=== PATIENT | female | born 1945 | race African-American/Black ===

== ENCOUNTER 2020-05-05 06:14 | Emergency (ER) | payer MEDICARE ==
[2020-05-05] MEDS ORDERED: LIDOCAINE 1% W/EPI 1:100,000 MDV 20 ML VIAL ONE (06:43)
[2020-05-05] MEDS ORDERED: LIDOCAINE 1% MPF 30 ML VIAL ONE (06:45)
--- NOTE | 2020-05-05 07:28 | RAD REPORT ---
EXAM DESCRIPTION: CT - Head Brain Wo Cont - 05/05/2020 6:51 am CLINICAL HISTORY: Syncope COMPARISON: None. TECHNIQUE: Computed axial tomography of the head was obtained. IV contrast was not requested. All CT scans are performed using dose optimization technique as appropriate and may include automated exposure control or mA/KV adjustment according to patient size. FINDINGS: Left supraorbital swelling. An intracranial bleed is not seen . Basal ganglia calcifications are present. The ventricles are normal in caliber. No extra-axial fluid collection is noted. Fluid within the sinuses/ mastoids is not seen. IMPRESSION: No acute intracranial abnormality is seen. If patient's symptoms persist MRI of the bra in would be recommended.
--- NOTE | 2020-05-05 07:49 | EDPHYS ---
Physician Documentation [facility] Name: Kyler Rushing Age: 75 yrs Sex: Female : 1945 Arrival Date: 05/05/2020 Time: 06:18 Bed 7 Private MD: ED Physician Celso Lagos HPI: 05/05 06:32 This 75 yrs old Black Female presents to ER via Unassigned with complaints of Fall jr8 Injury, Laceration To Scalp/Face. 06:32 Details of fall: The patient fell from an upright position, while standing. Onset: The jr8 symptoms/episode began/occurred acutely, today. Associated injuries: The patient sustained injury to the head, laceration, 3 cm(s), of the left zygomatic area. Severity of symptoms: At their worst the symptoms were moderate, in the emergency department the symptoms are unchanged. The patient has not experienced similar symptoms in the past. The patient has not recently seen a physician. Patient stated that she tripped and fell hitting side of head/face on ground. Denies LOC. Stated that it was accidental. Denies any other preceding symptoms . Historical: - Allergies: 06:40 No Known Allergies; mt2 - PMHx: 06:41 Diabetes - IDDM; High Cholesterol; Hypertension; mt2 - Immunization history:: Adult Immunizations up to date, Last tetanus immunization: up to date. - Social history:: Smoking status: Patient denies any tobacco usage or history of. ROS: 06:32 Eyes: Positive for swelling to left eye ENT: Negative for injury, pain, and discharge, jr8 Neck: Negative for injury, pain, and swelling, Cardiovascular: Negative for chest pain, palpitations, and edema, Respiratory: Negative for shortness of breath, cough, wheezing, and pleuritic chest pain, Abdomen/GI: Negative for abdominal pain, nausea, vomiting, diarrhea, and constipation, Back: Negative for injury and pain, MS/Extremity: Negative for injury and deformity, Neuro: Negative for headache, weakness, numbness, tingling, and seizure. 06:32 Skin: Positive for laceration(s), of the face. Exam: 06:32 Constitutional: This is a well developed, well nourished patient who is awake, alert, jr8 and in no acute distress. ENT: Nares patent. No nasal discharge, no septal abnormalities noted. Tympanic membranes are normal and external auditory canals are clear. Oropharynx with no redness, swelling, or masses, exudates, or evidence of obstruction, uvula midline. Mucous membranes moist. Neck: Trachea midline, no thyromegaly or masses palpated, and no cervical lymphadenopathy. Supple, full range of motion without nuchal rigidity, or vertebral point tenderness. No Meningismus. Chest/axilla: Normal chest wall appearance and motion. Nontender with no deformity. No lesions are appreciated. Cardiovascular: Regular rate and rhythm with a normal S1 and S2. No gallops, murmurs, or rubs. Normal PMI, no JVD. No pulse deficits. Respiratory: Lungs have equal breath sounds bilaterally, clear to auscultation and percussion. No rales, rhonchi or wheezes noted. No increased work of breathing, no retractions or nasal flaring. Abdomen/GI: Soft, non-tender, with normal bowel sounds. No distension or tympany. No guarding or rebound. No evidence of tenderness throughout. Back: No spinal tenderness. No costovertebral tenderness. Full range of motion. Skin: Warm, dry with normal turgor. Normal color with no rashes, no lesions, and no evidence of cellulitis. MS/ Extremity: Pulses equal, no cyanosis. Neurovascular intact. Full, normal range of motion. Neuro: Awake and alert, GCS 15, oriented to person, place, time, and situation. Cranial nerves II-XII grossly intact. Motor strength 5/5 in all extremities. Sensory grossly intact. Cerebellar exam normal. Normal gait. 06:32 Head/face: Noted is a laceration(s), that is deep, that is linear, 3 cm(s), of the left zygomatic area. 06:32 Eyes: Periorbital structures: swelling, that is mild, on the left supraorbital ridge, left upper eyelid and left lower eyelid, Pupils: equal, round, and reactive to light and accomodation, Extraocular movements: intact throughout, Conjunctiva: subconjunctival hemorrhage(s), seen in the left eye, at 4 o'clock, Corneas: are normal, Sclera: no appreciated abnormality, Anterior chamber: normal, Lids and lashes: appear normal, Examination of the other eye reveals no obvious gross abnormality. Vital Signs: 06:41 BP 147 / 72; Pulse 80; Temp 98.1(O); Pulse Ox 97% ; Pain 6/10; mt2 08:06 BP 140 / 69; Pulse 75; Resp 17; Temp 98; Pulse Ox 98% ; bp Nina Coma Score: 06:47 Eye Response: spontaneous(4). Verbal Response: oriented(5). Motor Response: obeys mt2 commands(6). Total: 15. Trauma Score (Adult): 06:47 Eye Response: spontaneous(1); Verbal Response: oriented(1); Motor Response: obeys mt2 commands(2); Systolic BP: > 89 mm Hg(4); Respiratory Rate: 10 to 29 per min(4); Conway Score: 15; Trauma Score: 12 Laceration: 07:44 Wound Repair of 3cm ( 1.2in ) subcutaneous laceration to left zygomatic area. Linear jr8 shaped.. Distal neuro/vascular/tendon intact. Anesthesia: Local anesthetic administered with 3 mls of 1% lidocaine w/ Epi. Wound prep: Moderate cleansing with hibiclenz, Wound explored moderately. Skin closed with 4 5-0 Prolene using interrupted sutures and sterile technique. Patient tolerated well. MDM: 06:21 Patient medically screened. jr8 07:44 Data reviewed: vital signs, nurses notes, radiologic studies, CT scan. Data jr8 interpreted: Pulse oximetry: on room air is 97 %. Interpretation: normal. Counseling: I had a detailed discussion with the patient and/or guardian regarding: the historical points, exam findings, and any diagnostic results supporting the discharge/admit diagnosis, radiology results, the need for outpatient follow up, a family practitioner, to return to the emergency department if symptoms worsen or persist or if there are any questions or concerns that arise at home. Response to treatment: the patient's symptoms have markedly improved after treatment. 05/05 06:31 Order name: CT Head Brain wo Cont; Complete Time: 07:29 mt2 05/05 06:32 Order name: Prolene, Sutures; Complete Time: 08:04 jr8 05/05 06:32 Order name: Dressing - Wound; Complete Time: 08:05 jr8 05/05 06:32 Order name: Gloves, Sterile; Complete Time: 08:05 jr8 05/05 06:32 Order name: Setup Suture Tray; Complete Time: 06:34 jr8 Administered Medications: 06:32 CANCELLED (Physician Discretion): Lidocaine-Epinephrine -1%: (1:100,000) 1 vials 20 ml jr8 Infiltration once; to bedside 06:40 Drug: Lidocaine-Epinephrine -1%: (1:100,000) 20 ml Volume: 20 ml; Route: Infiltration; mt2 Site: affected area; Disposition: 05/05/20 07:48 Discharged to Home. Impression: Laceration without foreign body to face, Contusion of left eyelid and periocular area. - Condition is Stable. - Discharge Instructions: Laceration Care, Adult, Facial Laceration. - Medication Reconciliation Form, Thank You Letter, Antibiotic Education, Prescription Opioid Use form. - Follow up: Private Physician; When: 1 week; Reason: Wound Recheck, Recheck today's complaints, Continuance of care, Staple/Suture removal, Re-evaluation by your physician. - Problem is new. - Symptoms have improved. Addendum: 05/08/2020 06:13 Co-signature as Attending Physician, Celso Lagos MD. m Signatures: Dispatcher [employer] EDMS Sanchez Schulz PA PA jr8 Eddy Bowles RN RN bp Celso Lagos MD MD 7 Sarah Delgado RN RN mt2 Corrections: (The following items were deleted from the chart) 05/05 06:32 06:32 Lidocaine-Epinephrine -1%: (1:100,000) 1 vials 20 ml Infiltration once; to jr8 bedside ordered. jr8 08:07 07:48 05/05/2020 07:48 Discharged to Home. Impression: Laceration without foreign body bp to face; Contusion of left eyelid and periocular area. Condition is Stable. Forms are Medication Reconciliation Form, Thank You Letter, Antibiotic Education, Prescription Opioid Use. Follow up: Private Physician; When: 1 week; Reason: Wound Recheck, Recheck today's complaints, Continuance of care, Staple/Suture removal, Re-evaluation by your physician. Problem is new. Symptoms have improved. jr8
--- NOTE | 2020-05-05 07:49 | ER ---
Nurse's Notes [facility] Name: Kyler Rushing Age: 75 yrs Sex: Female : 1945 Arrival Date: 05/05/2020 Time: 06:18 Bed 7 Private MD: Diagnosis: Laceration without foreign body to face;Contusion of left eyelid and periocular area Presentation: 05/05 06:34 Chief complaint: Patient states: PT FEL ON FLOOR FACE FORWARD. DENIES LOC. DENIES mt2 DIZZINESS OR N/V. DENIES BLURRED VISION. LACERATION ON LEFT ORBIT. LEFT EYE SWOLLEN. Care prior to arrival: None. Mechanism of Injury: Fall. Mechanism of Injury: Fall BED. Trauma event details: Injury occurred: May 05, 2020. 06:34 Acuity: TOVA 3 mt2 06:34 Method Of Arrival: Wheelchair mt2 06:48 Coronavirus screen: Client denies travel out of the [place] in the last 14 days. At this mt2 time, the client does not indicate any symptoms associated with coronavirus-19. Ebola Screen: No symptoms or risks identified at this time. Initial Sepsis Screen: Does the patient meet any 2 criteria? No. Patient's initial sepsis screen is negative. Does the patient have a suspected source of infection? No. Patient's initial sepsis screen is negative. Risk Assessment: Do you want to hurt yourself or someone else? Patient reports no desire to harm self or others. Onset of symptoms was May 05, 2020. Triage Assessment: 06:49 General: Appears uncomfortable, Behavior is cooperative. Pain: Complains of pain in mt2 left eye Pain currently is 55 out of 10 on a pain scale. Quality of pain is described as aching. Trauma Activation: Not Applicable Physician: ED Physician; Name: ; Notified At: ; Arrived At: Physician: General Surgeon; Name: ; Notified At: ; Arrived At: Physician: Radiology; Name: ; Notified At: ; Arrived At: Physician: Respiratory; Name: ; Notified At: ; Arrived At: Physician: Lab; Name: ; Notified At: ; Arrived At: Historical: - Allergies: 06:40 No Known Allergies; mt2 - PMHx: 06:41 Diabetes - IDDM; High Cholesterol; Hypertension; mt2 - Immunization history:: Adult Immunizations up to date, Last tetanus immunization: up to date. - Social history:: Smoking status: Patient denies any tobacco usage or history of. Screenin:42 Abuse screen: Denies threats or abuse. Nutritional screening: No deficits noted. mt2 Tuberculosis screening: No symptoms or risk factors identified. Fall Risk Fall in past 12 months (25 points). Gait- Weak (10 pts.). Primary Survey: 06:45 NO uncontrolled hemorrhage observed. A: The patient is alert. Airway: patent. mt2 Breathing/Chest: Respiratory pattern: regular, Respiratory effort: spontaneous, unlabored, Breath sounds: clear. Circulation: Cardiac rhythm: sinus rhythm. Disability Alert. Exposure/Environment: There is no evidence of uncontrolled external bleeding. 06:49 Reassessment Breathing/Chest Respiratory pattern Regular Respiratory effort Spontaneous.mt2 Assessment: 07:00 General: RECD REPORT FROM SARAH POWELL. 75YO BF S/P FALL WITH LACERATION TO LEFT BROW. bp 08:05 Reassessment: PT D/C HOME VIA W/C, DX WITH LACERATION AND CONTUSION. bp Vital Signs: 06:41 BP 147 / 72; Pulse 80; Temp 98.1(O); Pulse Ox 97% ; Pain 6/10; mt2 08:06 BP 140 / 69; Pulse 75; Resp 17; Temp 98; Pulse Ox 98% ; bp [place] Coma Score: 06:47 Eye Response: spontaneous(4). Verbal Response: oriented(5). Motor Response: obeys mt2 commands(6). Total: 15. Trauma Score (Adult): 06:47 Eye Response: spontaneous(1); Verbal Response: oriented(1); Motor Response: obeys mt2 commands(2); Systolic BP: > 89 mm Hg(4); Respiratory Rate: 10 to 29 per min(4); Nina Score: 15; Trauma Score: 12 ED Course: 06:18 Patient arrived in ED. es 06:21 Sanchez Schulz PA is PHCP. jr8 06:21 Celso Lagos MD is Attending Physician. jr8 06:23 Sarah Delgado RN is Primary Nurse. mt2 06:36 Triage completed. mt2 06:42 Arm band placed on right wrist. mt2 06:42 Assist provider with laceration repair Set up tray. mt2 06:48 Patient has correct armband on for positive identification. Call light in reach. Side mt2 rails up X 1. Pulse ox on. NIBP on. 06:48 Patient maintains SpO2 saturation greater than 95% on room air. mt2 06:49 Thermoregulation: warm blanket given to patient. mt2 06:50 CT Head Brain wo Cont In Process Unspecified. EDMS 08:06 Patient did not have IV access during this emergency room visit. bp Administered Medications: 06:32 CANCELLED (Physician Discretion): Lidocaine-Epinephrine -1%: (1:100,000) 1 vials 20 ml jrEdwin Infiltration once; to bedside 06:40 Drug: Lidocaine-Epinephrine -1%: (1:100,000) 20 ml Volume: 20 ml; Route: Infiltration; mt2 Site: affected area; Intake: 06:47 PO: 0ml; Total: 0ml. mt2 Outcome: 07:48 Discharge ordered by . jr8 08:06 Discharged to home via wheelchair. bp 08:06 Condition: stable 08:06 Discharge instructions given to patient, Instructed on discharge instructions, follow up and referral plans. wound care, Demonstrated understanding of instructions, follow-up care, wound care. 08:07 Patient's length of stay was not longer than 2 hours. bp 08:07 Patient left the ED. bp Signatures: Dispatcher [employer] Kandis Hdz Josh, PA PA jr8 Eddy Bowles, RN RN bp Sarah Delgado RN RN mt2
[2020-05-09 19:46] VITALS: BP 140/69; TEMP 98; O2SAT 98
== END 2020-05-05 08:07 | disposition home or self-care (01) ==
LOC: ER 06:14
PROC: 0JQ10ZZ Repair Face Subcutaneous Tissue and Fascia, Open Approach (ICD-10-PCS; principal; 2020-05-05)
DX: S01.81XA Laceration without foreign body of other part of head, initial encounter (principal); W01.10XA Fall on same level from slipping, tripping and stumbling with subsequent striking against unspecified object, initial encounter; Y93.9 Activity, unspecified; Y92.9 Unspecified place or not applicable; I10 Essential (primary) hypertension
CPT/HCPCS: 70450; 99284

== ENCOUNTER 2021-01-01 14:09 | Inpatient (IN) | payer MEDICARE ==
--- OUTSIDE RECORDS SUMMARY | 2021-01-01 14:14 | XMS REPORT | Continuity of Care Document ---
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 count) red blood count (test code = red 2.90 M/uL 3.80-5.20 L blood count) hemoglobin (test code = 8.9 g/dL 10.5-15.7 L hemoglobin) hematocrit (test code = 27.9 % 34.0-50.0 L hematocrit) MCV [Entitic volume] (test code = 96.2 fL 86-100 96932-4) mean corpuscular hemoglobin (test 30.7 pg 26.2-33.4 code = mean corpuscular hemoglobin) mean corpuscular HGB conc (test 31.9 g/dL 30-34 code = mean corpuscular HGB conc) red cell distribution width (test 18.7 % 12.0-15.5 H code = red cell distribution width) platelet count (test code = 191 K/uL 165-450 platelet count) mean platelet volume (test code = 9.4 fL 9.4-12.6 mean platelet volume) Segmented neutrophils/100 76.8 % 44.4-80.1 leukocytes in Blood (test code = 07043-7) Immature granulocytes [#/volume] 0.0 K/uL 0.0-0.03 in Blood (test code = 75145-8) lymphocyte% (test code = 15.9 % 10.0-50.0 lymphocyte%) mono % (test code = mono %) 6.0 % 3.6-12.0 eos % (test code = eos %) 0.8 % 0.0-5.4 Basophils/100 leukocytes in 0.1 % 0.1-1.2 Unspecified specimen (test code = 99553-7) Band form neutrophils [#/volume] 5.73 K/uL 1.56-6.13 in Blood (test code = 11695-2) Lymphocytes [#/volume] in 1.2 K/uL 1.18-3.74 Unspecified specimen by Automated count (test code = 52258-2) mono # (test code = mono #) 0.45 K/uL 0.24-0.86 eos # (test code = eos #) 0.06 K/uL 0.04-0.36 basophil # (test code = basophil 0.01 K/uL 0.01-0.08 #) NRBC% (test code = NRBC%) 1 /100 WBC 0-0.2 H NRBC# (test code = NRBC#) 0 K/uL [facility] metabolic 2000 panel - Serum or [id number] 03:00:00 Test Item Value Reference Range Interpretation Comments Glucose [Mass/volume] in Serum or 242 mg/dL 82-115 H Plasma (test code = 2345-7) Urea nitrogen [Mass/volume] in 7 mg/dL 8-23 L Serum or Plasma (test code = 3094-0) osmolality calculated,serum (test 285 mOsm/kg 280-300 code = osmolality calculated,serum) creatinine (test code = 0.9 mg/dL 0.50-0.90 creatinine) glomerular filtration rate (test >60.00 code = glomerular filtration rate) Urea nitrogen/Creatinine [Mass 7.8 12-20 L Ratio] in Serum or Plasma (test code = 3097-3) sodium level (test code = sodium 140 mmol/L 135-145 level) potassium level (test code = 3.8 mmol/L 3.5-5.2 potassium level) chloride level (test code = 109 mmol/L 98-108 H chloride level) CO2 (test code = CO2) 22 mmol/L 21-32 anion gap (test code = anion gap) 12.8 mEq/L 12-20 calcium level (test code = 7.8 mg/dL 8.8-10.2 L calcium level) [facility] W Auto Differential panel - [id number] 12:59:00 Test Item Value Reference Range Interpretation Comments white blood count (test code = 8.7 K/uL 4.0-11.5 white blood count) red blood count (test code = red 3.00 M/uL 3.80-5.20 L blood count) hemoglobin (test code = 9.1 g/dL 10.5-15.7 L hemoglobin) hematocrit (test code = 28.4 % 34.0-50.0 L hematocrit) MCV [Entitic volume] (test code = 94.7 fL 86-100 69229-4) mean corpuscular hemoglobin (test 30.3 pg 26.2-33.4 code = mean corpuscular hemoglobin) mean corpuscular HGB conc (test 32.0 g/dL 30-34 code = mean corpuscular HGB conc) red cell distribution width (test 19.0 % 12.0-15.5 H code = red cell distribution width) platelet count (test code = 201 K/uL 165-450 platelet count) mean platelet volume (test code = 9.8 fL 9.4-12.6 mean platelet volume) Segmented neutrophils/100 80.1 % 44.4-80.1 leukocytes in Blood (test code = 34133-8) Immature granulocytes [#/volume] 0.0 K/uL 0.0-0.03 H in Blood (test code = 88565-7) lymphocyte% (test code = 12.6 % 10.0-50.0 lymphocyte%) mono % (test code = mono %) 6.0 % 3.6-12.0 eos % (test code = eos %) 0.6 % 0.0-5.4 Basophils/100 leukocytes in 0.2 % 0.1-1.2 Unspecified specimen (test code = 14748-5) Band form neutrophils [#/volume] 6.95 K/uL 1.56-6.13 H in Blood (test code = 79223-5) Lymphocytes [#/volume] in 1.1 K/uL 1.18-3.74 L Unspecified specimen by Automated count (test code = 02833-9) mono # (test code = mono #) 0.52 K/uL 0.24-0.86 eos # (test code = eos #) 0.05 K/uL 0.04-0.36 basophil # (test code = basophil 0.02 K/uL 0.01-0.08 #) NRBC% (test code = NRBC%) 1 /100 WBC 0-0.2 H NRBC# (test code = NRBC#) 0 K/uL [facility] metabolic 2000 panel - Serum or [id number] 12:59:00 Test Item Value Reference Range Interpretation Comments glucose (test code = glucose) 129 mg/dL 82-115 H Urea nitrogen [Mass/volume] in 8 mg/dL 8-23 Serum or Plasma (test code = 3094-0) osmolality calculated,serum (test 276 mOsm/kg 280-300 L code = osmolality calculated,serum) creatinine (test code = 0.9 mg/dL 0.50-0.90 creatinine) glomerular filtration rate (test >60.00 code = glomerular filtration rate) Urea nitrogen/Creatinine [Mass 8.9 12-20 L Ratio] in Serum or Plasma (test code = 3097-3) sodium level (test code = sodium 138 mmol/L 135-145 level) Potassium [Moles/volume] in Body 3.4 mmol/L 3.5-5.2 L fluid (test code = 2821-7) chloride level (test code = 109 mmol/L 98-108 H chloride level) CO2 (test code = CO2) 22 mmol/L 21-32 anion gap (test code = anion gap) 10.4 mEq/L 12-20 L calcium level (test code = 7.8 mg/dL 8.8-10.2 L calcium level) [facility] W Auto Differential panel - [id number] 12:59:00 Test Item Value Reference Range Interpretation Comments white blood count (test code = 8.7 K/uL 4.0-11.5 white blood count) red blood count (test code = red 3.00 M/uL 3.80-5.20 L blood count) hemoglobin (test code = 9.1 g/dL 10.5-15.7 L hemoglobin) hematocrit (test code = 28.4 % 34.0-50.0 L hematocrit) MCV [Entitic volume] (test code = 94.7 fL 86-100 16962-3) mean corpuscular hemoglobin (test 30.3 pg 26.2-33.4 code = mean corpuscular hemoglobin) mean corpuscular HGB conc (test 32.0 g/dL 30-34 code = mean corpuscular HGB conc) red cell distribution width (test 19.0 % 12.0-15.5 H code = red cell distribution width) platelet count (test code = 201 K/uL 165-450 platelet count) mean platelet volume (test code = 9.8 fL 9.4-12.6 mean platelet volume) Segmented neutrophils/100 80.1 % 44.4-80.1 leukocytes in Blood (test code = 64498-1) Immature granulocytes [#/volume] 0.0 K/uL 0.0-0.03 H in Blood (test code = 55779-6) lymphocyte% (test code = 12.6 % 10.0-50.0 lymphocyte%) mono % (test code = mono %) 6.0 % 3.6-12.0 eos % (test code = eos %) 0.6 % 0.0-5.4 Basophils/100 leukocytes in 0.2 % 0.1-1.2 Unspecified specimen (test code = 66561-8) Band form neutrophils [#/volume] 6.95 K/uL 1.56-6.13 H in Blood (test code = 09893-9) Lymphocytes [#/volume] in 1.1 K/uL 1.18-3.74 L Unspecified specimen by Automated count (test code = 85693-9) mono # (test code = mono #) 0.52 K/uL 0.24-0.86 eos # (test code = eos #) 0.05 K/uL 0.04-0.36 basophil # (test code = basophil 0.02 K/uL 0.01-0.08 #) NRBC% (test code = NRBC%) 1 /100 WBC 0-0.2 H NRBC# (test code = NRBC#) 0 K/uL [facility] metabolic 2000 panel - Serum or [id number] 12:59:00 Test Item Value Reference Range Interpretation Comments glucose (test code = glucose) 129 mg/dL 82-115 H Urea nitrogen [Mass/volume] in 8 mg/dL 8-23 Serum or Plasma (test code = 3094-0) osmolality calculated,serum (test 276 mOsm/kg 280-300 L code = osmolality calculated,serum) creatinine (test code = 0.9 mg/dL 0.50-0.90 creatinine) glomerular filtration rate (test >60.00 code = glomerular filtration rate) Urea nitrogen/Creatinine [Mass 8.9 12-20 L Ratio] in Serum or Plasma (test code = 3097-3) sodium level (test code = sodium 138 mmol/L 135-145 level) Potassium [Moles/volume] in Body 3.4 mmol/L 3.5-5.2 L fluid (test code = 2821-7) chloride level (test code = 109 mmol/L 98-108 H chloride level) CO2 (test code = CO2) 22 mmol/L 21-32 anion gap (test code = anion gap) 10.4 mEq/L 12-20 L calcium level (test code = 7.8 mg/dL 8.8-10.2 L calcium level) [facility] W Auto Differential panel - [id number] 12:59:00 Test Item Value Reference Range Interpretation Comments white blood count (test code = 8.7 K/uL 4.0-11.5 white blood count) red blood count (test code = red 3.00 M/uL 3.80-5.20 L blood count) hemoglobin (test code = 9.1 g/dL 10.5-15.7 L hemoglobin) hematocrit (test code = 28.4 % 34.0-50.0 L hematocrit) MCV [Entitic volume] (test code = 94.7 fL 86-100 15520-3) mean corpuscular hemoglobin (test 30.3 pg 26.2-33.4 code = mean corpuscular hemoglobin) mean corpuscular HGB conc (test 32.0 g/dL 30-34 code = mean corpuscular HGB conc) red cell distribution width (test 19.0 % 12.0-15.5 H code = red cell distribution width) platelet count (test code = 201 K/uL 165-450 platelet count) mean platelet volume (test code = 9.8 fL 9.4-12.6 mean platelet volume) Segmented neutrophils/100 80.1 % 44.4-80.1 leukocytes in Blood (test code = 98403-8) Immature granulocytes [#/volume] 0.0 K/uL 0.0-0.03 H in Blood (test code = 36250-1) lymphocyte% (test code = 12.6 % 10.0-50.0 lymphocyte%) mono % (test code = mono %) 6.0 % 3.6-12.0 eos % (test code = eos %) 0.6 % 0.0-5.4 Basophils/100 leukocytes in 0.2 % 0.1-1.2 Unspecified specimen (test code = 09969-2) Band form neutrophils [#/volume] 6.95 K/uL 1.56-6.13 H in Blood (test code = 78735-9) Lymphocytes [#/volume] in 1.1 K/uL 1.18-3.74 L Unspecified specimen by Automated count (test code = 76046-1) mono # (test code = mono #) 0.52 K/uL 0.24-0.86 eos # (test code = eos #) 0.05 K/uL 0.04-0.36 basophil # (test code = basophil 0.02 K/uL 0.01-0.08 #) NRBC% (test code = NRBC%) 1 /100 WBC 0-0.2 H NRBC# (test code = NRBC#) 0 K/uL [facility] metabolic 2000 panel - Serum or [id number] 12:59:00 Test Item Value Reference Range Interpretation Comments glucose (test code = glucose) 129 mg/dL 82-115 H Urea nitrogen [Mass/volume] in 8 mg/dL 8-23 Serum or Plasma (test code = 3094-0) osmolality calculated,serum (test 276 mOsm/kg 280-300 L code = osmolality calculated,serum) creatinine (test code = 0.9 mg/dL 0.50-0.90 creatinine) glomerular filtration rate (test >60.00 code = glomerular filtration rate) Urea nitrogen/Creatinine [Mass 8.9 12-20 L Ratio] in Serum or Plasma (test code = 3097-3) sodium level (test code = sodium 138 mmol/L 135-145 level) Potassium [Moles/volume] in Body 3.4 mmol/L 3.5-5.2 L fluid (test code = 2821-7) chloride level (test code = 109 mmol/L 98-108 H chloride level) CO2 (test code = CO2) 22 mmol/L 21-32 anion gap (test code = anion gap) 10.4 mEq/L 12-20 L calcium level (test code = 7.8 mg/dL 8.8-10.2 L calcium level) [facility] [id number] 10:15:00 Test Item Value Reference Range Interpretation Comments hemoglobin (test code = hemoglobin) 9.4 g/dL 10.5-15.7 hematocrit (test code = hematocrit) 29.4 % 34.0-50.0 [facility] - [id number] 10:15:00 Test Item Value Reference Range Interpretation Comments hemoglobin (test code = hemoglobin) 9.4 g/dL 10.5-15.7 hematocrit (test code = hematocrit) 29.4 % 34.0-50.0 [facility] - [id number] 10:15:00 Test Item Value Reference Range Interpretation Comments hemoglobin (test code = hemoglobin) 9.4 g/dL 10.5-15.7 hematocrit (test code = hematocrit) 29.4 % 34.0-50.0 [facility] - [id number] 01:45:00 Test Item Value Reference Range Interpretation Comments white blood count (test code = 8.4 K/uL 4.0-11.5 white blood count) red blood count (test code = red 2.27 M/uL 3.80-5.20 L blood count) hemoglobin (test code = 7.0 g/dL 10.5-15.7 L hemoglobin) hematocrit (test code = 21.8 % 34.0-50.0 L hematocrit) MCV [Entitic volume] (test code = 96.0 fL 86-100 89799-1) mean corpuscular hemoglobin (test 30.8 pg 26.2-33.4 code = mean corpuscular hemoglobin) mean corpuscular HGB conc (test 32.1 g/dL 30-34 code = mean corpuscular HGB conc) red cell distribution width (test 18.6 % 12.0-15.5 H code = red cell distribution width) platelet count (test code = 156 K/uL 165-450 platelet count) mean platelet volume (test code = 10.2 fL 9.4-12.6 mean platelet volume) Segmented neutrophils/100 78.3 % 44.4-80.1 leukocytes in Blood (test code = 65876-2) Immature granulocytes [#/volume] 0.0 K/uL 0.0-0.03 H in Blood (test code = 80209-9) lymphocyte% (test code = 14.9 % 10.0-50.0 lymphocyte%) mono % (test code = mono %) 5.5 % 3.6-12.0 eos % (test code = eos %) 0.7 % 0.0-5.4 Basophils/100 leukocytes in 0.1 % 0.1-1.2 Unspecified specimen (test code = 25686-5) Band form neutrophils [#/volume] 6.55 K/uL 1.56-6.13 H in Blood (test code = 18027-3) Lymphocytes [#/volume] in 1.3 K/uL 1.18-3.74 Unspecified specimen by Automated count (test code = 45043-3) mono # (test code = mono #) 0.46 K/uL 0.24-0.86 eos # (test code = eos #) 0.06 K/uL 0.04-0.36 basophil # (test code = basophil 0.01 K/uL 0.01-0.08 #) NRBC% (test code = NRBC%) 3 /100 WBC 0-0.2 H NRBC# (test code = NRBC#) 0 K/uL [facility], method unspecified - [id number] 01:45:00NeutrophilsBandLymphocyteMonocyteEosinophilPlatelet [facility]Mem[facility] 2000 [facility] - Serum or [id number] 01:45:00 Test Item Value Reference Range Interpretation Comments Glucose [Mass/volume] in Serum or 164 mg/dL 82-115 H Plasma (test code = 2345-7) Urea nitrogen [Mass/volume] in 14 mg/dL 8-23 Serum or Plasma (test code = 3094-0) osmolality calculated,serum (test 285 mOsm/kg 280-300 code = osmolality calculated,serum) creatinine (test code = 0.9 mg/dL 0.50-0.90 creatinine) glomerular filtration rate (test >60.00 code = glomerular filtration rate) Urea nitrogen/Creatinine [Mass 15.6 12-20 Ratio] in Serum or Plasma (test code = 3097-3) sodium level (test code = sodium 141 mmol/L 135-145 level) potassium level (test code = 3.3 mmol/L 3.5-5.2 L potassium level) chloride level (test code = 107 mmol/L 98-108 chloride level) CO2 (test code = CO2) 25 mmol/L 21-32 anion gap (test code = anion gap) 12.3 mEq/L 12-20 calcium level (test code = 7.9 mg/dL 8.8-10.2 L calcium level) [facility] W Auto Differential panel - [id number] 01:45:00 Test Item Value Reference Range Interpretation Comments white blood count (test code = 8.4 K/uL 4.0-11.5 white blood count) red blood count (test code = red 2.27 M/uL 3.80-5.20 L blood count) hemoglobin (test code = 7.0 g/dL 10.5-15.7 L hemoglobin) hematocrit (test code = 21.8 % 34.0-50.0 L hematocrit) MCV [Entitic volume] (test code = 96.0 fL 86-100 87789-4) mean corpuscular hemoglobin (test 30.8 pg 26.2-33.4 code = mean corpuscular hemoglobin) mean corpuscular HGB conc (test 32.1 g/dL 30-34 code = mean corpuscular HGB conc) red cell distribution width (test 18.6 % 12.0-15.5 H code = red cell distribution width) platelet count (test code = 156 K/uL 165-450 platelet count) mean platelet volume (test code = 10.2 fL 9.4-12.6 mean platelet volume) Segmented neutrophils/100 78.3 % 44.4-80.1 leukocytes in Blood (test code = 29100-0) Immature granulocytes [#/volume] 0.0 K/uL 0.0-0.03 H in Blood (test code = 05748-5) lymphocyte% (test code = 14.9 % 10.0-50.0 lymphocyte%) mono % (test code = mono %) 5.5 % 3.6-12.0 eos % (test code = eos %) 0.7 % 0.0-5.4 Basophils/100 leukocytes in 0.1 % 0.1-1.2 Unspecified specimen (test code = 05806-0) Band form neutrophils [#/volume] 6.55 K/uL 1.56-6.13 H in Blood (test code = 71770-5) Lymphocytes [#/volume] in 1.3 K/uL 1.18-3.74 Unspecified specimen by Automated count (test code = 45150-1) mono # (test code = mono #) 0.46 K/uL 0.24-0.86 eos # (test code = eos #) 0.06 K/uL 0.04-0.36 basophil # (test code = basophil 0.01 K/uL 0.01-0.08 #) NRBC% (test code = NRBC%) 3 /100 WBC 0-0.2 H NRBC# (test code = NRBC#) 0 K/uL [facility]Different[facility], method unspecified - [id number] 01:45:00NeutrophilsBandLymphocyteMonocyteEosinophilPlatelet EstimateMataSinging [facility]portBasic [facility] 2000 panel - Serum or [id number] 01:45:00 Test Item Value Reference Range Interpretation Comments Glucose [Mass/volume] in Serum or 164 mg/dL 82-115 H Plasma (test code = 2345-7) Urea nitrogen [Mass/volume] in 14 mg/dL 8-23 Serum or Plasma (test code = 3094-0) osmolality calculated,serum (test 285 mOsm/kg 280-300 code = osmolality calculated,serum) creatinine (test code = 0.9 mg/dL 0.50-0.90 creatinine) glomerular filtration rate (test >60.00 code = glomerular filtration rate) Urea nitrogen/Creatinine [Mass 15.6 12-20 Ratio] in Serum or Plasma (test code = 3097-3) sodium level (test code = sodium 141 mmol/L 135-145 level) potassium level (test code = 3.3 mmol/L 3.5-5.2 L potassium level) chloride level (test code = 107 mmol/L 98-108 chloride level) CO2 (test code = CO2) 25 mmol/L 21-32 anion gap (test code = anion gap) 12.3 mEq/L 12-20 calcium level (test code = 7.9 mg/dL 8.8-10.2 L calcium level) [facility] W Auto Differential panel - [id number] 01:45:00 Test Item Value Reference Range Interpretation Comments white blood count (test code = 8.4 K/uL 4.0-11.5 white blood count) red blood count (test code = red 2.27 M/uL 3.80-5.20 L blood count) hemoglobin (test code = 7.0 g/dL 10.5-15.7 L hemoglobin) hematocrit (test code = 21.8 % 34.0-50.0 L hematocrit) MCV [Entitic volume] (test code = 96.0 fL 86-100 02434-5) mean corpuscular hemoglobin (test 30.8 pg 26.2-33.4 code = mean corpuscular hemoglobin) mean corpuscular HGB conc (test 32.1 g/dL 30-34 code = mean corpuscular HGB conc) red cell distribution width (test 18.6 % 12.0-15.5 H code = red cell distribution width) platelet count (test code = 156 K/uL 165-450 platelet count) mean platelet volume (test code = 10.2 fL 9.4-12.6 mean platelet volume) Segmented neutrophils/100 78.3 % 44.4-80.1 leukocytes in Blood (test code = 27920-7) Immature granulocytes [#/volume] 0.0 K/uL 0.0-0.03 H in Blood (test code = 90361-2) lymphocyte% (test code = 14.9 % 10.0-50.0 lymphocyte%) mono % (test code = mono %) 5.5 % 3.6-12.0 eos % (test code = eos %) 0.7 % 0.0-5.4 Basophils/100 leukocytes in 0.1 % 0.1-1.2 Unspecified specimen (test code = 74882-4) Band form neutrophils [#/volume] 6.55 K/uL 1.56-6.13 H in Blood (test code = 31354-0) Lymphocytes [#/volume] in 1.3 K/uL 1.18-3.74 Unspecified specimen by Automated count (test code = 67520-9) mono # (test code = mono #) 0.46 K/uL 0.24-0.86 eos # (test code = eos #) 0.06 K/uL 0.04-0.36 basophil # (test code = basophil 0.01 K/uL 0.01-0.08 #) NRBC% (test code = NRBC%) 3 /100 WBC 0-0.2 H NRBC# (test code = NRBC#) 0 K/uL [facility], method unspecified - [id number] 01:45:00NeutrophilsBandLymphocyteMonocyteEosinophilPlatelet EstimateMataSing[facility]portBasic metabolic 2000 panel - Serum or [id number] 01:45:00 Test Item Value Reference Range Interpretation Comments Glucose [Mass/volume] in Serum or 164 mg/dL 82-115 H Plasma (test code = 2345-7) Urea nitrogen [Mass/volume] in 14 mg/dL 8-23 Serum or Plasma (test code = 3094-0) osmolality calculated,serum (test 285 mOsm/kg 280-300 code = osmolality calculated,serum) creatinine (test code = 0.9 mg/dL 0.50-0.90 creatinine) glomerular filtration rate (test >60.00 code = glomerular filtration rate) Urea nitrogen/Creatinine [Mass 15.6 12-20 Ratio] in Serum or Plasma (test code = 3097-3) sodium level (test code = sodium 141 mmol/L 135-145 level) potassium level (test code = 3.3 mmol/L 3.5-5.2 L potassium level) chloride level (test code = 107 mmol/L 98-108 chloride level) CO2 (test code = CO2) 25 mmol/L 21-32 anion gap (test code = anion gap) 12.3 mEq/L 12-20 calcium level (test code = 7.9 mg/dL 8.8-10.2 L calcium level) [facility] - [id number] 13:40:00 Test Item Value Reference Range Interpretation Comments Blood type and Crossmatch unit number: panel - Blood (test code [id number] = 47844-3) [place] [address]2020-05-08 13:40[facility]:40:[place] [address] 13:40:00Results [place] [address]2020-05-08 13:[facility] 13:40:[place] [address]2020-05-08 13:40:00Results [place] [address]2020-05-08 13:40:[facility] 13:40:00Results[place] [address]2020-05-08 13:40:00Results [place] [address]2020-05-08 13:40:[facility]:40[facility] [place] [address]Ksvmgpxd4197-94-01 13:40:00Results [place] [address]2020-05-08 13:40:[facility] 13:40:[place] [address]-[place]-08 13:40:00Results [facility] [id number] [facility]:40[facility] 13:40:[facility] [id number] 13:40:00Results [facility] [id number] 13:40:[facility]15 13:40:[facility] [id number] 13:40:00Results [facility] [id number] 13:40:[facility] 2020-01-15 13:40:[facility] Chtdwpan1571-15-34 13:40:00Results [facility] Yykgikdg9347-61-02 13:40:[facility] 2020-01-15 13:40:[facility] [id number] 13:40:00Results [facility] GroupBlood [facility] and Crossmatch panel - [id number] 13:40:00 Test Item Value Reference Range Interpretation Comments Blood type and Crossmatch unit number: panel - Blood (test code [id number] = 17558-0) [facility] [id number] 13:40:[facility]-15 13:40:[facility] Nppdsoul3366-09-22 13:40:00Results [facility] [id number] 13:40:[facility] 2020-01-15 13:40:00[facility] [id number] 13:40:00Results [facility] Afzsnlkl7869-17-00 13:40:00[facility] 13:40:00[facility] Jfqpivey4730-43-24 13:40:00Results [facility] Peaxvatg8803-49-64 13:40:00[facility] 2020-01-15 13:40:00[facility] Fshxbsjf7674-14-68 13:40:00Results [facility] Khfrvbvc9687-55-77 13:40:00[facility] 2020-01-15 13:40:00[facility] Czwbqdda0744-29-45 13:40:00Results [facility] Dstmgngh6768-09-16 13:40:00[facility] 2020-01-15 13:40:00[facility] Wpqrrdjx4217-16-76 13:40:00Results [facility] Hyjzymto4705-91-02 13:40:00[facility] 2020-01-15 13:40:00[facility] Ntuohlnp1509-75-77 13:40:00Results [facility] Lzfppyqi5287-17-52 13:40:00[facility] 2020-01-15 13:40:00[facility] Iuejquaw3462-69-28 13:40:00Results [facility] Nomyedvn1039-48-85 13:40:00[facility] 2020-01-15 13:40:00[facility] Dbxgqyuj6214-44-84 13:40:00Results [facility] GroupBlood type and Crossmatch panel - [id number] 13:40:00 Test Item Value Reference Range Interpretation Comments Blood type and Crossmatch unit number: panel - Blood (test code [id number] = 98937-6) [facility] Ivgfesks0551-19-44 13:40:00[facility] 2020-01-15 13:40:00[facility] Wcehgwhg3661-55-54 13:40:00Results [facility] Xabwinim0811-69-54 13:40:00[facility] 2020-01-15 13:40:00[facility] Zsdjaebt8749-05-83 13:40:00Results [facility] Ohseoqle0686-22-14 13:40:00[facility] 2020-01-15 13:40:00[facility] Ajacjhfi6436-28-93 13:40:00Results [facility] Knooctoy2352-98-36 13:40:00[facility] 2020-01-15 13:40:00[facility] Zfpfkecr4640-18-47 13:40:00Results [facility] Npguejas4602-29-08 13:40:00[facility] 2020-01-15 13:40:00[facility] Yogiazun8154-06-97 13:40:00Results [facility] Fsagmjnp2709-38-97 13:40:00[facility] 2020-01-15 13:40:00[facility] Cynfxfqq3530-16-97 13:40:00Results [facility] Yxdtjlyd5884-86-15 13:40:00[facility] 2020-01-15 13:40:00[facility] Eihssmhq0891-48-11 13:40:00Results [facility] Rrgsvbmi5596-50-78 13:40:00[facility] 2020-01-15 13:40:00[facility] Dbtjgdja9402-84-17 13:40:00Results [facility] Xrrsofqp2432-51-82 13:40:00[facility] 2020-01-15 13:40:00[facility] 13:40[facility]00[facility] - Gnyga9636-95-65 09:48:00 Test Item Value Reference Range Interpretation Comments hemoglobin (test code = hemoglobin) 7.6 g/dL 10.5-15.7 hematocrit (test code = hematocrit) 23.5 % 34.0-50.0 [facility] - Bbnvb3965-26-55 09:48:00 Test Item Value Reference Range Interpretation Comments hemoglobin (test code = hemoglobin) 7.6 g/dL 10.5-15.7 hematocrit (test code = hematocrit) 23.5 % 34.0-50.0 [facility] - [id number] 09:48:00 Test Item Value Reference Range Interpretation Comments hemoglobin (test code = hemoglobin) 7.6 g/dL 10.5-15.7 hematocrit (test code = hematocrit) 23.5 % 34.0-50.0 [facility] HospitalPT/[id number] 08:07:00 Test Item Value Reference Range Interpretation Comments prothrombin time (test code = 10.4 seconds 10.3-12.3 prothrombin time) INR in Blood by Coagulation 0.96 assay (test code = 02368-2) [facility] [id number] 08:07:00 Test Item Value Reference Range Interpretation Comments INR in Blood by Coagulation 22.0 seconds 22.5-37.0 L assay (test code = 89273-7) [facility] and Indirect antibody screen panel - Blood 2020-01-15 08:07:00 Test Item Value Reference Range Interpretation Comments Rh [Type] in Blood (test code = neg 67505-7) ABO and Rh group panel - Blood O negative (test code = 35171-8) [facility]PT/[id number] 08:07:00 Test Item Value Reference Range Interpretation Comments prothrombin time (test code = 10.4 seconds 10.3-12.3 prothrombin time) INR in Blood by Coagulation 0.96 assay (test code = 95436-2) [facility] gjvt0741-78-10 08:07:00 Test Item Value Reference Range Interpretation Comments INR in Blood by Coagulation 22.0 seconds 22.5-37.0 L assay (test code = 33120-5) [facility] type and Indirect antibody screen panel - Blood 2020-01-15 08:07:00 Test Item Value Reference Range Interpretation Comments Rh [Type] in Blood (test code = neg 00406-1) ABO and Rh group panel - Blood O negative (test code = 63879-7) [facility] HospitalPT/[id number] 08:07:00 Test Item Value Reference Range Interpretation Comments prothrombin time (test code = 10.4 seconds 10.3-12.3 prothrombin time) INR in Blood by Coagulation 0.96 assay (test code = 22323-9) [facility] [id number] 08:07:00 Test Item Value Reference Range Interpretation Comments INR in Blood by Coagulation 22.0 seconds 22.5-37.0 L assay (test code = 05783-2) [facility] type and Indirect antibody screen panel - Blood 2020-01-15 08:07:00 Test Item Value Reference Range Interpretation Comments Rh [Type] in Blood (test code = neg 56789-7) ABO and Rh group panel - Blood O negative (test code = 44953-0) [facility] HospitalCom[facility] 2000 panel - Serum or Plasma 2020-01-15 07:32:00 Test Item Value Reference Range Interpretation Comments Glucose [Mass/volume] in Serum or 269 mg/dL 82-115 H Plasma (test code = 2345-7) Urea nitrogen [Mass/volume] in 16 mg/dL 8-23 Serum or Plasma (test code = 3094-0) osmolality calculated,serum (test 287 mOsm/kg 280-300 code = osmolality calculated,serum) creatinine (test code = 1.0 mg/dL 0.50-0.90 H creatinine) glomerular filtration rate (test >60.00 code = glomerular filtration rate) Urea nitrogen/Creatinine [Mass 16.0 12-20 Ratio] in Serum or Plasma (test code = 3097-3) sodium level (test code = sodium 138 mmol/L 135-145 level) potassium level (test code = 3.7 mmol/L 3.5-5.2 potassium level) chloride level (test code = 103 mmol/L 98-108 chloride level) CO2 (test code = CO2) 21 mmol/L 21-32 anion gap (test code = anion gap) 17.7 mEq/L 12-20 calcium level (test code = 8.5 mg/dL 8.8-10.2 L calcium level) total protein (test code = total 6.2 g/dL 6.6-8.7 L protein) albumin (test code = albumin) 3.7 g/dL 3.5-5.2 globulin (test code = globulin) 2.5 gm/dL A/G ratio (test code = A/G ratio) 1.5 >1.0 bilirubin,total (test code = <0.3 0.0-1.2 bilirubin,total) AST/SGOT (test code = AST/SGOT) 23 U/L 15-32 Alanine aminotransferase 21 U/L 0-33 [Enzymatic activity/volume] in Serum or Plasma (test code = 1742-6) Alkaline phosphatase [Enzymatic 60 U/L 35-105 activity/volume] in Serum or Plasma (test code = 6768-6) [facility] HospitalCreat[facility] kinase [Enzymatic activity/volume] in Serum or [id number] 07:32:00 Test Item Value Reference Range Interpretation Comments creatine kinase (test code = creatine 901 U/L 20-180 H kinase) [facility] HospitalNatriuretic peptide.B prohormone N-Terminal [Mass/volume] in Serum or [id number] 07:32:00 Test Item Value Reference Range Interpretation Comments N-term pro natriuretic peptide (test 91 pg/mL 0-125 code = N-term pro natriuretic peptide) [facility] HospitalTroponin I.cardiac [Mass/volume] in [id number] 07:32:00 Test Item Value Reference Range Interpretation Comments cardiac troponin I (test code = cardiac <0.30 0.0-0.5 troponin I) [facility] HospitalCreat[facility] kinase.MB [Mass/volume] in Serum or Plasma 2020-01-15 07:32:00 Test Item Value Reference Range Interpretation Comments Creatine kinase.MB [Mass/volume] 25.1 NG/mL 0.0-3.6 H in Serum or Plasma by Immunoassay (test code = 21601-9) [facility] HospitalCom[facility] 2000 panel - Serum or Plasma 2020-01-15 07:32:00 Test Item Value Reference Range Interpretation Comments Glucose [Mass/volume] in Serum or 269 mg/dL 82-115 H Plasma (test code = 2345-7) Urea nitrogen [Mass/volume] in 16 mg/dL 8-23 Serum or Plasma (test code = 3094-0) osmolality calculated,serum (test 287 mOsm/kg 280-300 code = osmolality calculated,serum) creatinine (test code = 1.0 mg/dL 0.50-0.90 H creatinine) glomerular filtration rate (test >60.00 code = glomerular filtration rate) Urea nitrogen/Creatinine [Mass 16.0 12-20 Ratio] in Serum or Plasma (test code = 3097-3) sodium level (test code = sodium 138 mmol/L 135-145 level) potassium level (test code = 3.7 mmol/L 3.5-5.2 potassium level) chloride level (test code = 103 mmol/L 98-108 chloride level) CO2 (test code = CO2) 21 mmol/L 21-32 anion gap (test code = anion gap) 17.7 mEq/L 12-20 calcium level (test code = 8.5 mg/dL 8.8-10.2 L calcium level) total protein (test code = total 6.2 g/dL 6.6-8.7 L protein) albumin (test code = albumin) 3.7 g/dL 3.5-5.2 globulin (test code = globulin) 2.5 gm/dL A/G ratio (test code = A/G ratio) 1.5 >1.0 bilirubin,total (test code = <0.3 0.0-1.2 bilirubin,total) AST/SGOT (test code = AST/SGOT) 23 U/L 15-32 Alanine aminotransferase 21 U/L 0-33 [Enzymatic activity/volume] in Serum or Plasma (test code = 1742-6) Alkaline phosphatase [Enzymatic 60 U/L 35-105 activity/volume] in Serum or Plasma (test code = 6768-6) [facility] HospitalCreat[facility] kinase [Enzymatic activity/volume] in Serum or [id number] 07:32:00 Test Item Value Reference Range Interpretation Comments creatine kinase (test code = creatine 901 U/L 20-180 H kinase) [facility] HospitalNatriuretic peptide.B prohormone N-Terminal [Mass/volume] in Serum or [id number] 07:32:00 Test Item Value Reference Range Interpretation Comments N-term pro natriuretic peptide (test 91 pg/mL 0-125 code = N-term pro natriuretic peptide) [facility] HospitalTroponin I.cardiac [Mass/volume] in Eumql3966-92-28 07:32:00 Test Item Value Reference Range Interpretation Comments cardiac troponin I (test code = cardiac <0.30 0.0-0.5 troponin I) [facility] HospitalCreatine kinase.MB [Mass/volume] in Serum or Plasma 2020-01-15 07:32:00 Test Item Value Reference Range Interpretation Comments Creatine kinase.MB [Mass/volume] 25.1 NG/mL 0.0-3.6 H in Serum or Plasma by Immunoassay (test code = 33722-2) [facility] W Auto Differential panel - [id number] 07:32:00 Test Item Value Reference Range Interpretation Comments white blood count (test code = 8.5 K/uL 4.0-11.5 white blood count) red blood count (test code = red 1.60 M/uL 3.80-5.20 L blood count) hemoglobin (test code = 5.1 g/dL 10.5-15.7 hemoglobin) hematocrit (test code = 16.9 % 34.0-50.0 hematocrit) MCV [Entitic volume] (test code = 105.6 fL 86-100 H 73662-5) mean corpuscular hemoglobin (test 31.9 pg 26.2-33.4 code = mean corpuscular hemoglobin) mean corpuscular HGB conc (test 30.2 g/dL 30-34 code = mean corpuscular HGB conc) red cell distribution width (test 17.0 % 12.0-15.5 H code = red cell distribution width) platelet count (test code = 252 K/uL 165-450 platelet count) mean platelet volume (test code = 9.8 fL 9.4-12.6 mean platelet volume) Segmented neutrophils/100 82.1 % 44.4-80.1 H leukocytes in Blood (test code = 72125-9) Immature granulocytes [#/volume] 0.0 K/uL 0.0-0.03 H in Blood (test code = 30482-4) lymphocyte% (test code = 11.4 % 10.0-50.0 lymphocyte%) mono % (test code = mono %) 5.4 % 3.6-12.0 eos % (test code = eos %) 0.5 % 0.0-5.4 Basophils/100 leukocytes in 0.1 % 0.1-1.2 Unspecified specimen (test code = 33919-7) Band form neutrophils [#/volume] 6.97 K/uL 1.56-6.13 H in Blood (test code = 30718-5) Lymphocytes [#/volume] in 1.0 K/uL 1.18-3.74 L Unspecified specimen by Automated count (test code = 68599-4) mono # (test code = mono #) 0.46 K/uL 0.24-0.86 eos # (test code = eos #) 0.04 K/uL 0.04-0.36 basophil # (test code = basophil 0.01 K/uL 0.01-0.08 #) NRBC% (test code = NRBC%) 2 /100 WBC 0-0.2 H NRBC# (test code = NRBC#) 0 K/uL [facility] HospitalDifferential panel, method unspecified - [id number] 07:32:00NeutrophilsBandLymphocyteMonocyteEosinophilBasophilPlatelet EstimateDifferential comment-[facility]Com[facility] 2000 [facility] - Serum or [id number] 07:32:00 Test Item Value Reference Range Interpretation Comments Glucose [Mass/volume] in Serum or 269 mg/dL 82-115 H Plasma (test code = 2345-7) Urea nitrogen [Mass/volume] in 16 mg/dL 8-23 Serum or Plasma (test code = 3094-0) osmolality calculated,serum (test 287 mOsm/kg 280-300 code = osmolality calculated,serum) creatinine (test code = 1.0 mg/dL 0.50-0.90 H creatinine) glomerular filtration rate (test >60.00 code = glomerular filtration rate) Urea nitrogen/Creatinine [Mass 16.0 12-20 Ratio] in Serum or Plasma (test code = 3097-3) sodium level (test code = sodium 138 mmol/L 135-145 level) potassium level (test code = 3.7 mmol/L 3.5-5.2 potassium level) chloride level (test code = 103 mmol/L 98-108 chloride level) CO2 (test code = CO2) 21 mmol/L 21-32 anion gap (test code = anion gap) 17.7 mEq/L 12-20 calcium level (test code = 8.5 mg/dL 8.8-10.2 L calcium level) total protein (test code = total 6.2 g/dL 6.6-8.7 L protein) albumin (test code = albumin) 3.7 g/dL 3.5-5.2 globulin (test code = globulin) 2.5 gm/dL A/G ratio (test code = A/G ratio) 1.5 >1.0 bilirubin,total (test code = <0.3 0.0-1.2 bilirubin,total) AST/SGOT (test code = AST/SGOT) 23 U/L 15-32 Alanine aminotransferase 21 U/L 0-33 [Enzymatic activity/volume] in Serum or Plasma (test code = 1742-6) Alkaline phosphatase [Enzymatic 60 U/L 35-105 activity/volume] in Serum or Plasma (test code = 6768-6) [facility] GroupCreatine kinase [Enzymatic activity/volume] in Serum or [id number] 07:32:00 Test Item Value Reference Range Interpretation Comments creatine kinase (test code = creatine 901 U/L 20-180 H kinase) [facility] GroupNatriuretic peptide.B prohormone N-Terminal [Mass/volume] in Serum or [id number] 07:32:00 Test Item Value Reference Range Interpretation Comments N-term pro natriuretic peptide (test 91 pg/mL 0-125 code = N-term pro natriuretic peptide) [facility] HospitalTroponin I.cardiac [Mass/volume] in [id number] 07:32:00 Test Item Value Reference Range Interpretation Comments cardiac troponin I (test code = cardiac <0.30 0.0-0.5 troponin I) [facility] HospitalCreatine kinase.MB [Mass/volume] in Serum or Plasma 2020-01-15 07:32:00 Test Item Value Reference Range Interpretation Comments Creatine kinase.MB [Mass/volume] 25.1 NG/mL 0.0-3.6 H in Serum or Plasma by Immunoassay (test code = 03074-7) [facility] HospitalUrinalysis complete panel - [id number] 04:45:00 Test Item Value Reference Range Interpretation Comments Color of Urine by Auto (test colorless code = 49504-9) Appearance of Urine (test code clear clear = 5767-9) Glucose [Presence] in Urine by negative negative Automated test strip (test code = 62910-2) Bilirubin.total [Mass/volume] negative negative in Urine (test code = 1978-6) Ketones [Mass/volume] in Urine negative negative by Automated test strip (test code = 56815-5) Specific gravity of Urine by 1.008 1.003-1.030 Automated test strip (test code = 09807-9) blood urine (test code = blood negative negative urine) pH of Urine (test code = 5.500 5-9 2756-5) protein urine (UA) (test code = negative negative protein urine (UA)) Urobilinogen [Presence] in normal 0.2-1.0 Urine (test code = 83045-2) Nitrite [Presence] in Urine by negative negative Test strip (test code = 5802-4) Leukocyte esterase [Presence] negative negative in Urine by Automated test strip (test code = 37491-7) Erythrocytes [#/volume] in <1 0-5 Urine by Automated count (test code = 798-9) Leukocytes [#/area] in Urine <1 0-5 sediment by Automated count (test code = 32906-5) Epithelial cells [Presence] in <1 0-5 Urine sediment by Light microscopy (test code = 28338-0) Bacteria identified in Urine by none detected none detect Culture (test code = 630-4) Casts [#/area] in Urine =2-5 none detect sediment by Automated count (test code = 33852-7) urine culture added? (test code no = urine culture added?) [facility] HospitalUr[facility] complete panel - [id number] 04:45:00 Test Item Value Reference Range Interpretation Comments Color of Urine by Auto (test colorless code = 07923-2) Appearance of Urine (test code clear clear = 5767-9) Glucose [Presence] in Urine by negative negative Automated test strip (test code = 02346-8) Bilirubin.total [Mass/volume] negative negative in Urine (test code = 1977-) Ketones [Mass/volume] in Urine negative negative by Automated test strip (test code = 08299-6) Specific gravity of Urine by 1.008 1.003-1.030 Automated test strip (test code = 09856-2) blood urine (test code = blood negative negative urine) pH of Urine (test code = 5.500 5-9 2756-5) protein urine (UA) (test code = negative negative protein urine (UA)) Urobilinogen [Presence] in normal 0.2-1.0 Urine (test code = 49387-0) Nitrite [Presence] in Urine by negative negative Test strip (test code = 5802-4) Leukocyte esterase [Presence] negative negative in Urine by Automated test strip (test code = 77135-7) Erythrocytes [#/volume] in <1 0-5 Urine by Automated count (test code = 798-9) Leukocytes [#/area] in Urine <1 0-5 sediment by Automated count (test code = 64570-5) Epithelial cells [Presence] in <1 0-5 Urine sediment by Light microscopy (test code = 37536-2) Bacteria identified in Urine by none detected none detect Culture (test code = 630-4) Casts [#/area] in Urine =2-5 none detect sediment by Automated count (test code = 23807-6) urine culture added? (test code no = urine culture added?) [facility] HospitalUr[facility] complete [facility] - [id number] 04:45:00 Test Item Value Reference Range Interpretation Comments Color of Urine by Auto (test colorless code = 92355-7) Appearance of Urine (test code clear clear = 5767-9) Glucose [Presence] in Urine by negative negative Automated test strip (test code = 43712-1) Bilirubin.total [Mass/volume] negative negative in Urine (test code = 1978-02) Ketones [Mass/volume] in Urine negative negative by Automated test strip (test code = 41469-8) Specific gravity of Urine by 1.008 1.003-1.030 Automated test strip (test code = 20992-7) blood urine (test code = blood negative negative urine) pH of Urine (test code = 5.500 5-9 2756-5) protein urine (UA) (test code = negative negative protein urine (UA)) Urobilinogen [Presence] in normal 0.2-1.0 Urine (test code = 88898-9) Nitrite [Presence] in Urine by negative negative Test strip (test code = 5802-4) Leukocyte esterase [Presence] negative negative in Urine by Automated test strip (test code = 50771-5) Erythrocytes [#/volume] in <1 0-5 Urine by Automated count (test code = 798-9) Leukocytes [#/area] in Urine <1 0-5 sediment by Automated count (test code = 05147-9) Epithelial cells [Presence] in <1 0-5 Urine sediment by Light microscopy (test code = 55159-2) Bacteria identified in Urine by none detected none detect Culture (test code = 630-4) Casts [#/area] in Urine =2-5 none detect sediment by Automated count (test code = 13534-6) urine culture added? (test code no = urine culture added?) [facility] W Auto Differential panel - [id number] 09:37:00 Test Item Value Reference Range Interpretation Comments white blood count (test code = 6.7 K/uL 4.0-11.5 white blood count) red blood count (test code = red 2.27 M/uL 3.80-5.20 L blood count) hemoglobin (test code = 7.2 g/dL 10.5-15.7 hemoglobin) hematocrit (test code = 23.1 % 34.0-50.0 hematocrit) MCV [Entitic volume] (test code = 101.8 fL 86-100 H 99799-6) mean corpuscular hemoglobin (test 31.7 pg 26.2-33.4 code = mean corpuscular hemoglobin) mean corpuscular HGB conc (test 31.2 g/dL 30-34 code = mean corpuscular HGB conc) red cell distribution width (test 14.8 % 12.0-15.5 code = red cell distribution width) platelet count (test code = 242 K/uL 165-450 platelet count) mean platelet volume (test code = 10.2 fL 9.4-12.6 mean platelet volume) Segmented neutrophils/100 74.8 % 44.4-80.1 leukocytes in Blood (test code = 02612-5) Immature granulocytes [#/volume] 0.0 K/uL 0.0-0.03 in Blood (test code = 46816-2) lymphocyte% (test code = 19.0 % 10.0-50.0 lymphocyte%) mono % (test code = mono %) 5.2 % 3.6-12.0 eos % (test code = eos %) 0.4 % 0.0-5.4 Basophils/100 leukocytes in 0.3 % 0.1-1.2 Unspecified specimen (test code = 33575-3) Band form neutrophils [#/volume] 4.98 K/uL 1.56-6.13 in Blood (test code = 18500-6) Lymphocytes [#/volume] in 1.3 K/uL 1.18-3.74 Unspecified specimen by Automated count (test code = 92000-2) mono # (test code = mono #) 0.35 K/uL 0.24-0.86 eos # (test code = eos #) 0.03 K/uL 0.04-0.36 L basophil # (test code = basophil 0.02 K/uL 0.01-0.08 #) NRBC% (test code = NRBC%) 1 /100 WBC 0-0.2 H NRBC# (test code = NRBC#) 0 K/uL [facility] W Auto Differential panel - [id number] 09:37:00 Test Item Value Reference Range Interpretation Comments white blood count (test code = 6.7 K/uL 4.0-11.5 white blood count) red blood count (test code = red 2.27 M/uL 3.80-5.20 L blood count) hemoglobin (test code = 7.2 g/dL 10.5-15.7 hemoglobin) hematocrit (test code = 23.1 % 34.0-50.0 hematocrit) MCV [Entitic volume] (test code = 101.8 fL 86-100 H 86451-1) mean corpuscular hemoglobin (test 31.7 pg 26.2-33.4 code = mean corpuscular hemoglobin) mean corpuscular HGB conc (test 31.2 g/dL 30-34 code = mean corpuscular HGB conc) red cell distribution width (test 14.8 % 12.0-15.5 code = red cell distribution width) platelet count (test code = 242 K/uL 165-450 platelet count) mean platelet volume (test code = 10.2 fL 9.4-12.6 mean platelet volume) Segmented neutrophils/100 74.8 % 44.4-80.1 leukocytes in Blood (test code = 06192-8) Immature granulocytes [#/volume] 0.0 K/uL 0.0-0.03 in Blood (test code = 88938-4) lymphocyte% (test code = 19.0 % 10.0-50.0 lymphocyte%) mono % (test code = mono %) 5.2 % 3.6-12.0 eos % (test code = eos %) 0.4 % 0.0-5.4 Basophils/100 leukocytes in 0.3 % 0.1-1.2 Unspecified specimen (test code = 78749-2) Band form neutrophils [#/volume] 4.98 K/uL 1.56-6.13 in Blood (test code = 97589-3) Lymphocytes [#/volume] in 1.3 K/uL 1.18-3.74 Unspecified specimen by Automated count (test code = 36426-0) mono # (test code = mono #) 0.35 K/uL 0.24-0.86 eos # (test code = eos #) 0.03 K/uL 0.04-0.36 L basophil # (test code = basophil 0.02 K/uL 0.01-0.08 #) NRBC% (test code = NRBC%) 1 /100 WBC 0-0.2 H NRBC# (test code = NRBC#) 0 K/uL [facility] W Auto Differential panel - [id number] 09:37:00 Test Item Value Reference Range Interpretation Comments white blood count (test code = 6.7 K/uL 4.0-11.5 white blood count) red blood count (test code = red 2.27 M/uL 3.80-5.20 L blood count) hemoglobin (test code = 7.2 g/dL 10.5-15.7 hemoglobin) hematocrit (test code = 23.1 % 34.0-50.0 hematocrit) MCV [Entitic volume] (test code = 101.8 fL 86-100 H 50367-4) mean corpuscular hemoglobin (test 31.7 pg 26.2-33.4 code = mean corpuscular hemoglobin) mean corpuscular HGB conc (test 31.2 g/dL 30-34 code = mean corpuscular HGB conc) red cell distribution width (test 14.8 % 12.0-15.5 code = red cell distribution width) platelet count (test code = 242 K/uL 165-450 platelet count) mean platelet volume (test code = 10.2 fL 9.4-12.6 mean platelet volume) Segmented neutrophils/100 74.8 % 44.4-80.1 leukocytes in Blood (test code = 84997-6) Immature granulocytes [#/volume] 0.0 K/uL 0.0-0.03 in Blood (test code = 62971-7) lymphocyte% (test code = 19.0 % 10.0-50.0 lymphocyte%) mono % (test code = mono %) 5.2 % 3.6-12.0 eos % (test code = eos %) 0.4 % 0.0-5.4 Basophils/100 leukocytes in 0.3 % 0.1-1.2 Unspecified specimen (test code = 61693-8) Band form neutrophils [#/volume] 4.98 K/uL 1.56-6.13 in Blood (test code = 85306-7) Lymphocytes [#/volume] in 1.3 K/uL 1.18-3.74 Unspecified specimen by Automated count (test code = 04218-0) mono # (test code = mono #) 0.35 K/uL 0.24-0.86 eos # (test code = eos #) 0.03 K/uL 0.04-0.36 L basophil # (test code = basophil 0.02 K/uL 0.01-0.08 #) NRBC% (test code = NRBC%) 1 /100 WBC 0-0.2 H NRBC# (test code = NRBC#) 0 K/[facility] [Enzymatic activity/volume] in Serum or [id number] 05:20:00 Test Item Value Reference Range Interpretation Comments creatine kinase (test code = creatine 189 U/L 20-180 H kinase) [facility]Trop[facility] I.cardiac [Mass/volume] in [id number] 05:20:00 Test Item Value Reference Range Interpretation Comments cardiac troponin I (test code = cardiac <0.30 0.0-0.5 troponin I) [facility]Creat[facility] kinase.MB [Mass/volume] in Serum or Plasma 2019-06-26 05:20:00 Test Item Value Reference Range Interpretation Comments mass creatinine kinase-mb (test 2.6 NG/mL 0.0-3.6 code = mass creatinine kinase-mb) [facility] W Auto Differential panel - [id number] 02:50:00 Test Item Value Reference Range Interpretation Comments white blood count (test code = 4.8 K/uL 4.0-11.5 white blood count) red blood count (test code = red 3.44 M/uL 3.80-5.20 L blood count) hemoglobin (test code = 11.0 g/dL 10.5-15.7 hemoglobin) hematocrit (test code = 34.4 % 34.0-50.0 hematocrit) Erythrocyte mean corpuscular 100.0 fL 86-100 volume [Entitic volume] (test code = 06002-4) mean corpuscular hemoglobin (test 32.0 pg 26.2-33.4 code = mean corpuscular hemoglobin) mean corpuscular HGB conc (test 32.0 g/dL 30-34 code = mean corpuscular HGB conc) red cell distribution width (test 13.7 % 12.0-15.5 code = red cell distribution width) platelet count (test code = 251 K/uL 165-450 platelet count) mean platelet volume (test code = 9.4 fL 9.4-12.6 mean platelet volume) Neutrophils.segmented/100 68.7 % 44.4-80.1 leukocytes in Blood (test code = 52899-6) Granulocytes Immature [#/volume] 0.0 K/uL 0.0-0.03 in Blood (test code = 16831-1) lymphocyte% (test code = 19.7 % 10.0-50.0 lymphocyte%) mono % (test code = mono %) 9.5 % 3.6-12.0 eos % (test code = eos %) 1.7 % 0.0-5.4 Basophils/100 leukocytes in 0.2 % 0.1-1.2 Unspecified specimen (test code = 75468-6) Neutrophils.band form [#/volume] 3.32 K/uL 1.56-6.13 in Blood (test code = 52167-1) Lymphocytes [#/volume] in 1.0 K/uL 1.18-3.74 L Unspecified specimen by Automated count (test code = 60233-9) mono # (test code = mono #) 0.46 K/uL 0.24-0.86 eos # (test code = eos #) 0.08 K/uL 0.04-0.36 basophil # (test code = basophil 0.01 K/uL 0.01-0.08 #) NRBC% (test code = NRBC%) 0 /100 WBC 0-0.2 NRBC# (test code = NRBC#) 0 K/uL [facility]different[facility], [id number] 02:50:00 NeutrophilsBandLymphocyteAtypical LymphMonocyteEosinophilBasophilMetamyelocytePlatelet EstimatePlatelet MorphologyHypochromasiaAnisocytosisMacrocytosisToxic GranulationToxic VacuolationMatagoMemorial Hospital at GulfportPT/[id number] 02:50:00 Test Item Value Reference Range Interpretation Comments prothrombin time (test code = 9.5 seconds 10.3-12.3 L prothrombin time) INR in Blood by Coagulation assay 0.90 (test code = 61693-8) [facility] [id number] 02:50:00 Test Item Value Reference Range Interpretation Comments INR in Blood by Coagulation 24.8 seconds 22.5-37.0 assay (test code = 76692-1) [facility] HospitalCom[facility] 2000 panel - Serum or Plasma 2019-06-26 02:50:00 Test Item Value Reference Range Interpretation Comments Glucose [Mass/volume] in Serum or 180 mg/dL 82-115 H Plasma (test code = 2345-7) Urea nitrogen [Mass/volume] in 15 mg/dL 8-23 Serum or Plasma (test code = 3094-0) osmolality calculated, serum (test 285 280-300 code = osmolality calculated, serum) creatinine (test code = 1.0 mg/dL 0.50-0.90 H creatinine) glomerular filtration rate (test >60.00 code = glomerular filtration rate) Urea nitrogen/Creatinine [Mass 15.0 12-20 Ratio] in Serum or Plasma (test code = 3097-3) sodium level (test code = sodium 140 mmol/L 135-145 level) potassium level (test code = 3.9 mmol/L 3.5-5.2 potassium level) chloride level (test code = 104 mmol/L 98-108 chloride level) CO2 (test code = CO2) 25 mmol/L 21-32 anion gap (test code = anion gap) 14.9 mEq/L 12-20 calcium level (test code = calcium 8.9 mg/dL 8.8-10.2 level) total protein (test code = total 6.9 g/dL 6.6-8.7 protein) albumin (test code = albumin) 3.7 g/dL 3.5-5.2 globulin (test code = globulin) 3.2 gm/dL A/G ratio (test code = A/G ratio) 1.2 >1.0 bilirubin,total (test code = 0.3 mg/dL 0.0-1.2 bilirubin,total) AST/SGOT (test code = AST/SGOT) 14 U/L 15-32 L Alanine aminotransferase 14 U/L 0-33 [Enzymatic activity/volume] in Serum or Plasma (test code = 1742-6) Alkaline phosphatase [Enzymatic 90 U/L 35-105 activity/volume] in Serum or Plasma (test code = 6768-6) [facility] HospitalCreat[facility] kinase [Enzymatic activity/volume] in Serum or [id number] 02:50:00 Test Item Value Reference Range Interpretation Comments creatine kinase (test code = creatine 187 U/L 20-180 H kinase) [facility] HospitalNatriuretic peptide.B prohormone N-Terminal [Mass/volume] in Serum or [id number] 02:50:00 Test Item Value Reference Range Interpretation Comments N-term pro natriuretic peptide 171 pg/mL 0-125 H (test code = N-term pro natriuretic peptide) [facility] HospitalTroponin I.cardiac [Mass/volume] in [id number] 02:50:00 Test Item Value Reference Range Interpretation Comments cardiac troponin I (test code = cardiac <0.30 0.0-0.5 troponin I) [facility] HospitalCreatine kinase.MB [Mass/volume] in Serum or Plasma 2019-06-26 02:50:00 Test Item Value Reference Range Interpretation Comments mass creatinine kinase-mb (test 2.6 NG/mL 0.0-3.6 code = mass creatinine kinase-mb) [facility] W Auto Differential panel - [id number] 02:50:00 Test Item Value Reference Range Interpretation Comments white blood count (test code = 4.8 K/uL 4.0-11.5 white blood count) red blood count (test code = red 3.44 M/uL 3.80-5.20 L blood count) hemoglobin (test code = 11.0 g/dL 10.5-15.7 hemoglobin) hematocrit (test code = 34.4 % 34.0-50.0 hematocrit) Erythrocyte mean corpuscular 100.0 fL 86-100 volume [Entitic volume] (test code = 58655-6) mean corpuscular hemoglobin (test 32.0 pg 26.2-33.4 code = mean corpuscular hemoglobin) mean corpuscular HGB conc (test 32.0 g/dL 30-34 code = mean corpuscular HGB conc) red cell distribution width (test 13.7 % 12.0-15.5 code = red cell distribution width) platelet count (test code = 251 K/uL 165-450 platelet count) mean platelet volume (test code = 9.4 fL 9.4-12.6 mean platelet volume) Neutrophils.segmented/100 68.7 % 44.4-80.1 leukocytes in Blood (test code = 57056-0) Granulocytes Immature [#/volume] 0.0 K/uL 0.0-0.03 in Blood (test code = 37286-8) lymphocyte% (test code = 19.7 % 10.0-50.0 lymphocyte%) mono % (test code = mono %) 9.5 % 3.6-12.0 eos % (test code = eos %) 1.7 % 0.0-5.4 Basophils/100 leukocytes in 0.2 % 0.1-1.2 Unspecified specimen (test code = 26246-7) Neutrophils.band form [#/volume] 3.32 K/uL 1.56-6.13 in Blood (test code = 61364-4) Lymphocytes [#/volume] in 1.0 K/uL 1.18-3.74 L Unspecified specimen by Automated count (test code = 14446-4) mono # (test code = mono #) 0.46 K/uL 0.24-0.86 eos # (test code = eos #) 0.08 K/uL 0.04-0.36 basophil # (test code = basophil 0.01 K/uL 0.01-0.08 #) NRBC% (test code = NRBC%) 0 /100 WBC 0-0.2 NRBC# (test code = NRBC#) 0 K/uL [facility]different[facility], [id number] 02:50:00 NeutrophilsBandLymphocyteAtypical LymphMonocyteEosinophilBasophilMetamyelocytePlatelet EstimatePlatelet MorphologyHypochromasiaAnisocytosisMacrocytosisToxic GranulationToxic VacuolationMatagoMemorial Hospital at GulfportPT/[id number] 02:50:00 Test Item Value Reference Range Interpretation Comments prothrombin time (test code = 9.5 seconds 10.3-12.3 L prothrombin time) INR in Blood by Coagulation assay 0.90 (test code = 09533-8) [facility]partial thromboplastin [id number] 02:50:00 Test Item Value Reference Range Interpretation Comments INR in Blood by Coagulation 24.8 seconds 22.5-37.0 assay (test code = 63171-4) [facility] HospitalComprehensive [facility] 2000 panel - Serum or Plasma 2019-06-26 02:50:00 Test Item Value Reference Range Interpretation Comments Glucose [Mass/volume] in Serum or 180 mg/dL 82-115 H Plasma (test code = 2345-7) Urea nitrogen [Mass/volume] in 15 mg/dL 8-23 Serum or Plasma (test code = 3094-0) osmolality calculated, serum (test 285 280-300 code = osmolality calculated, serum) creatinine (test code = 1.0 mg/dL 0.50-0.90 H creatinine) glomerular filtration rate (test >60.00 code = glomerular filtration rate) Urea nitrogen/Creatinine [Mass 15.0 12-20 Ratio] in Serum or Plasma (test code = 3097-3) sodium level (test code = sodium 140 mmol/L 135-145 level) potassium level (test code = 3.9 mmol/L 3.5-5.2 potassium level) chloride level (test code = 104 mmol/L 98-108 chloride level) CO2 (test code = CO2) 25 mmol/L 21-32 anion gap (test code = anion gap) 14.9 mEq/L 12-20 calcium level (test code = calcium 8.9 mg/dL 8.8-10.2 level) total protein (test code = total 6.9 g/dL 6.6-8.7 protein) albumin (test code = albumin) 3.7 g/dL 3.5-5.2 globulin (test code = globulin) 3.2 gm/dL A/G ratio (test code = A/G ratio) 1.2 >1.0 bilirubin,total (test code = 0.3 mg/dL 0.0-1.2 bilirubin,total) AST/SGOT (test code = AST/SGOT) 14 U/L 15-32 L Alanine aminotransferase 14 U/L 0-33 [Enzymatic activity/volume] in Serum or Plasma (test code = 1742-6) Alkaline phosphatase [Enzymatic 90 U/L 35-105 activity/volume] in Serum or Plasma (test code = 6768-6) [facility] GroupCreat[facility] kinase [Enzymatic activity/volume] in Serum or [id number] 02:50:00 Test Item Value Reference Range Interpretation Comments creatine kinase (test code = creatine 187 U/L 20-180 H kinase) [facility] GroupNatriuretic peptide.B prohormone N-Terminal [Mass/volume] in Serum or [id number] 02:50:00 Test Item Value Reference Range Interpretation Comments N-term pro natriuretic peptide 171 pg/mL 0-125 H (test code = N-term pro natriuretic peptide) [facility] HospitalTroponin I.cardiac [Mass/volume] in [id number] 02:50:00 Test Item Value Reference Range Interpretation Comments cardiac troponin I (test code = cardiac <0.30 0.0-0.5 troponin I) [facility] HospitalCreatine kinase.MB [Mass/volume] in Serum or Plasma 2019-06-26 02:50:00 Test Item Value Reference Range Interpretation Comments mass creatinine kinase-mb (test 2.6 NG/mL 0.0-3.6 code = mass creatinine kinase-mb) [facility] W Auto Differential panel - [id number] 12:30:00 Test Item Value Reference Range Interpretation Comments white blood count (test code = 5.8 K/uL 4.0-11.5 white blood count) red blood count (test code = red 3.64 M/uL 3.80-5.20 L blood count) hemoglobin (test code = 11.6 g/dL 10.5-15.7 hemoglobin) hematocrit (test code = 36.9 % 34.0-50.0 hematocrit) Erythrocyte mean corpuscular 101.4 fL 86-100 H volume [Entitic volume] (test code = 91616-4) mean corpuscular hemoglobin (test 31.9 pg 26.2-33.4 code = mean corpuscular hemoglobin) mean corpuscular HGB conc (test 31.4 g/dL 30-34 code = mean corpuscular HGB conc) red cell distribution width (test 13.8 % 12.0-15.5 code = red cell distribution width) platelet count (test code = 240 K/uL 165-450 platelet count) mean platelet volume (test code = 9.4 fL 9.4-12.6 mean platelet volume) Neutrophils.segmented/100 68.6 % 44.4-80.1 leukocytes in Blood (test code = 74434-6) Granulocytes Immature [#/volume] 0.0 K/uL 0.0-0.03 in Blood (test code = 13170-7) lymphocyte% (test code = 20.2 % 10.0-50.0 lymphocyte%) mono % (test code = mono %) 9.8 % 3.6-12.0 eos % (test code = eos %) 0.9 % 0.0-5.4 Basophils/100 leukocytes in 0.2 % 0.1-1.2 Unspecified specimen (test code = 95842-2) Neutrophils.band form [#/volume] 4.00 K/uL 1.56-6.13 in Blood (test code = 30017-7) Lymphocytes [#/volume] in 1.2 K/uL 1.18-3.74 Unspecified specimen by Automated count (test code = 16883-8) mono # (test code = mono #) 0.57 K/uL 0.24-0.86 eos # (test code = eos #) 0.05 K/uL 0.04-0.36 basophil # (test code = basophil 0.01 K/uL 0.01-0.08 #) NRBC% (test code = NRBC%) 0 /100 WBC 0-0.2 NRBC# (test code = NRBC#) 0 K/uL [facility]different[facility], [id number] 12:30:00 NeutrophilsBandLymphocyteAtypical LymphMonocyteEosinophilBasophilPlatelet EstimatePlatelet MorphologyMacrocytosisField Memorial Community HospitalBasic metabolic 2000 panel - Serum or [id number] 12:30:00 Test Item Value Reference Range Interpretation Comments Glucose [Mass/volume] in Serum or 123 mg/dL 82-115 H Plasma (test code = 2345-7) Urea nitrogen [Mass/volume] in 10 mg/dL 8-23 Serum or Plasma (test code = 3094-0) osmolality calculated, serum (test 287 280-300 code = osmolality calculated, serum) creatinine (test code = 1.0 mg/dL 0.50-0.90 H creatinine) glomerular filtration rate (test >60.00 code = glomerular filtration rate) Urea nitrogen/Creatinine [Mass 10.0 12-20 L Ratio] in Serum or Plasma (test code = 3097-3) sodium level (test code = sodium 144 mmol/L 135-145 level) potassium level (test code = 3.9 mmol/L 3.5-5.2 potassium level) chloride level (test code = 109 mmol/L 98-108 H chloride level) CO2 (test code = CO2) 23 mmol/L 21-32 anion gap (test code = anion gap) 15.9 mEq/L 12-20 calcium level (test code = calcium 8.5 mg/dL 8.8-10.2 L level) [facility] W Auto Differential panel - [id number] 12:30:00 Test Item Value Reference Range Interpretation Comments white blood count (test code = 5.8 K/uL 4.0-11.5 white blood count) red blood count (test code = red 3.64 M/uL 3.80-5.20 L blood count) hemoglobin (test code = 11.6 g/dL 10.5-15.7 hemoglobin) hematocrit (test code = 36.9 % 34.0-50.0 hematocrit) Erythrocyte mean corpuscular 101.4 fL 86-100 H volume [Entitic volume] (test code = 29388-1) mean corpuscular hemoglobin (test 31.9 pg 26.2-33.4 code = mean corpuscular hemoglobin) mean corpuscular HGB conc (test 31.4 g/dL 30-34 code = mean corpuscular HGB conc) red cell distribution width (test 13.8 % 12.0-15.5 code = red cell distribution width) platelet count (test code = 240 K/uL 165-450 platelet count) mean platelet volume (test code = 9.4 fL 9.4-12.6 mean platelet volume) Neutrophils.segmented/100 68.6 % 44.4-80.1 leukocytes in Blood (test code = 93637-5) Granulocytes Immature [#/volume] 0.0 K/uL 0.0-0.03 in Blood (test code = 57199-2) lymphocyte% (test code = 20.2 % 10.0-50.0 lymphocyte%) mono % (test code = mono %) 9.8 % 3.6-12.0 eos % (test code = eos %) 0.9 % 0.0-5.4 Basophils/100 leukocytes in 0.2 % 0.1-1.2 Unspecified specimen (test code = 82267-0) Neutrophils.band form [#/volume] 4.00 K/uL 1.56-6.13 in Blood (test code = 61059-0) Lymphocytes [#/volume] in 1.2 K/uL 1.18-3.74 Unspecified specimen by Automated count (test code = 00044-5) mono # (test code = mono #) 0.57 K/uL 0.24-0.86 eos # (test code = eos #) 0.05 K/uL 0.04-0.36 basophil # (test code = basophil 0.01 K/uL 0.01-0.08 #) NRBC% (test code = NRBC%) 0 /100 WBC 0-0.2 NRBC# (test code = NRBC#) 0 K/uL [facility]different[facility], [id number] 12:30:00 NeutrophilsBandLymphocyteAtypical LymphMonocyteEosinophilBasophilPlatelet EstimatePlatelet MorphologyMacrocytosisField Memorial [facility] HospitalBasic metabolic 2000 panel - Serum or [id number] 12:30:00 Test Item Value Reference Range Interpretation Comments Glucose [Mass/volume] in Serum or 123 mg/dL 82-115 H Plasma (test code = 2345-7) Urea nitrogen [Mass/volume] in 10 mg/dL 8-23 Serum or Plasma (test code = 3094-0) osmolality calculated, serum (test 287 280-300 code = osmolality calculated, serum) creatinine (test code = 1.0 mg/dL 0.50-0.90 H creatinine) glomerular filtration rate (test >60.00 code = glomerular filtration rate) Urea nitrogen/Creatinine [Mass 10.0 12-20 L Ratio] in Serum or Plasma (test code = 3097-3) sodium level (test code = sodium 144 mmol/L 135-145 level) potassium level (test code = 3.9 mmol/L 3.5-5.2 potassium level) chloride level (test code = 109 mmol/L 98-108 H chloride level) CO2 (test code = CO2) 23 mmol/L 21-32 anion gap (test code = anion gap) 15.9 mEq/L 12-20 calcium level (test code = calcium 8.5 mg/dL 8.8-10.2 L level) [facility] HospitalUrinalysis complete panel - [id number] 11:54:00 Test Item Value Reference Range Interpretation Comments Color of Urine by Auto light yellow (test code = 11761-5) Appearance of Urine (test clear clear code = 5767-9) Glucose [Presence] in negative negative Urine by Automated test strip (test code = 40281-3) Bilirubin.total negative negative [Mass/volume] in Urine (test code = 1978-6) Ketones [Mass/volume] in negative negative Urine by Automated test strip (test code = 45410-8) Specific gravity of Urine 1.025 1.003-1.030 by Automated test strip (test code = 67418-5) blood urine (test code = negative negative blood urine) pH of Urine (test code = 6.500 5-9 2756-5) protein urine (UA) (test negative negative code = protein urine (UA)) Urobilinogen [Presence] normal 0.2-1.0 in Urine (test code = 91843-3) Nitrite [Presence] in negative negative Urine by Test strip (test code = 5802-4) Leukocyte esterase negative negative [Presence] in Urine by Automated test strip (test code = 62484-9) Erythrocytes [#/volume] <1 0-5 in Urine by Automated count (test code = 798-9) Leukocytes [#/area] in <1 0-5 Urine sediment by Automated count (test code = 73239-5) Epithelial cells <1 0-5 [Presence] in Urine sediment by Light microscopy (test code = 01651-4) Bacteria identified in none detected none detect Urine by Culture (test code = 630-4) Casts [#/area] in Urine =11-14 none detect H sediment by Automated count (test code = 81502-4) urine culture added? no (test code = urine culture added?) path casts,U (test code = cellular casts (1-5 none detect A path casts,U) [facility] HospitalUrinal[facility] complete [facility] - [id number] 11:54:00 Test Item Value Reference Range Interpretation Comments Color of Urine by Auto light yellow (test code = 34370-6) Appearance of Urine (test clear clear code = 5767-9) Glucose [Presence] in negative negative Urine by Automated test strip (test code = 10691-7) Bilirubin.total negative negative [Mass/volume] in Urine (test code = 1978-6) Ketones [Mass/volume] in negative negative Urine by Automated test strip (test code = 14052-9) Specific gravity of Urine 1.025 1.003-1.030 by Automated test strip (test code = 42546-8) blood urine (test code = negative negative blood urine) pH of Urine (test code = 6.500 5-9 2756-5) protein urine (UA) (test negative negative code = protein urine (UA)) Urobilinogen [Presence] normal 0.2-1.0 in Urine (test code = 27514-5) Nitrite [Presence] in negative negative Urine by Test strip (test code = 5802-4) Leukocyte esterase negative negative [Presence] in Urine by Automated test strip (test code = 75506-2) Erythrocytes [#/volume] <1 0-5 in Urine by Automated count (test code = 798-9) Leukocytes [#/area] in <1 0-5 Urine sediment by Automated count (test code = 08185-1) Epithelial cells <1 0-5 [Presence] in Urine sediment by Light microscopy (test code = 48634-8) Bacteria identified in none detected none detect Urine by Culture (test code = 630-4) Casts [#/area] in Urine =11-14 none detect H sediment by Automated count (test code = 67806-5) urine culture added? no (test code = urine culture added?) path casts,U (test code = cellular casts (1-5 none detect A path casts,U) [facility] W Auto Differential panel - [id number] 09:30:00 Test Item Value Reference Range Interpretation Comments white blood count (test code = 5.6 K/uL 4.0-11.5 white blood count) red blood count (test code = red 3.98 M/uL 3.80-5.20 blood count) hemoglobin (test code = 12.7 g/dL 10.5-15.7 hemoglobin) hematocrit (test code = 39.8 % 34.0-50.0 hematocrit) Erythrocyte mean corpuscular 100.0 fL 86-100 volume [Entitic volume] (test code = 01204-2) mean corpuscular hemoglobin (test 31.9 pg 26.2-33.4 code = mean corpuscular hemoglobin) mean corpuscular HGB conc (test 31.9 g/dL 30-34 code = mean corpuscular HGB conc) red cell distribution width (test 13.6 % 12.0-15.5 code = red cell distribution width) platelet count (test code = 315 K/uL 165-450 platelet count) mean platelet volume (test code = 9.4 fL 9.4-12.6 mean platelet volume) Neutrophils.segmented/100 76.8 % 44.4-80.1 leukocytes in Blood (test code = 39020-1) Granulocytes Immature [#/volume] 0.0 K/uL 0.0-0.03 in Blood (test code = 61083-0) lymphocyte% (test code = 15.1 % 10.0-50.0 lymphocyte%) mono % (test code = mono %) 6.8 % 3.6-12.0 eos % (test code = eos %) 0.7 % 0.0-5.4 Basophils/100 leukocytes in 0.4 % 0.1-1.2 Unspecified specimen (test code = 14645-5) Neutrophils.band form [#/volume] 4.29 K/uL 1.56-6.13 in Blood (test code = 03498-8) Lymphocytes [#/volume] in 0.8 K/uL 1.18-3.74 L Unspecified specimen by Automated count (test code = 22487-7) mono # (test code = mono #) 0.38 K/uL 0.24-0.86 eos # (test code = eos #) 0.04 K/uL 0.04-0.36 basophil # (test code = basophil 0.02 K/uL 0.01-0.08 #) NRBC% (test code = NRBC%) 0 /100 WBC 0-0.2 NRBC# (test code = NRBC#) 0 K/uL [facility]different[facility], [id number] 09:30:00 NeutrophilsBandLymphocyteAtypical LymphMonocyteEosinophilPlatelet EstimatePlatelet MorphologyMacrocytosisMaForrest General HospitalPT/[id number] 09:30:00 Test Item Value Reference Range Interpretation Comments prothrombin time (test code = 10.5 seconds 10.3-12.3 prothrombin time) INR in Blood by Coagulation 0.95 assay (test code = 88243-0) [facility]partial [facility]in [id number] 09:30:00 Test Item Value Reference Range Interpretation Comments INR in Blood by Coagulation 23.4 seconds 22.5-37.0 assay (test code = 41595-2) [facility] HospitalCom[facility] 2000 [facility] - Serum or Plasma 2019-06-03 09:30:00 Test Item Value Reference Range Interpretation Comments Glucose [Mass/volume] in Serum or 177 mg/dL 82-115 H Plasma (test code = 2345-7) Urea nitrogen [Mass/volume] in 9 mg/dL 8-23 Serum or Plasma (test code = 3094-0) osmolality calculated, serum (test 286 280-300 code = osmolality calculated, serum) creatinine (test code = 1.3 mg/dL 0.50-0.90 H creatinine) glomerular filtration rate (test 48.58 L code = glomerular filtration rate) Urea nitrogen/Creatinine [Mass 6.9 12-20 L Ratio] in Serum or Plasma (test code = 3097-3) sodium level (test code = sodium 142 mmol/L 135-145 level) potassium level (test code = 4.1 mmol/L 3.5-5.2 potassium level) chloride level (test code = 106 mmol/L 98-108 chloride level) CO2 (test code = CO2) 24 mmol/L 21-32 anion gap (test code = anion gap) 16.1 mEq/L 12-20 calcium level (test code = calcium 9.0 mg/dL 8.8-10.2 level) total protein (test code = total 7.0 g/dL 6.6-8.7 protein) albumin (test code = albumin) 3.6 g/dL 3.5-5.2 globulin (test code = globulin) 3.4 gm/dL A/G ratio (test code = A/G ratio) 1.1 >1.0 bilirubin,total (test code = 0.6 mg/dL 0.0-1.2 bilirubin,total) AST/SGOT (test code = AST/SGOT) 15 U/L 15-32 Alanine aminotransferase 11 U/L 0-33 [Enzymatic activity/volume] in Serum or Plasma (test code = 1742-6) Alkaline phosphatase [Enzymatic 86 U/L 35-105 activity/volume] in Serum or Plasma (test code = 6768-6) [facility] HospitalMagnesium [Moles/volume] in Unspecified specimen 2019-06-03 09:30:00 Test Item Value Reference Range Interpretation Comments magnesium level (test code = 1.8 mg/dL 1.6-2.4 magnesium level) [facility] [facility] GroupEthanol [Mass/volume] in Serum or [id number] 09:30:00 Test Item Value Reference Range Interpretation Comments alcohol level (test code = alcohol <10.1 0.00-10.1 level) [facility] [Enzymatic activity/volume] in Serum or [id number] 09:30:00 Test Item Value Reference Range Interpretation Comments creatine kinase (test code = creatine 150 U/L 20-180 kinase) [facility] HospitalNatriuretic peptide.B prohormone N-Terminal [Mass/volume] in Serum or [id number] 09:30:00 Test Item Value Reference Range Interpretation Comments N-term pro natriuretic peptide 200 pg/mL 0-125 H (test code = N-term pro natriuretic peptide) [facility] HospitalTroponin I.cardiac [Mass/volume] in [id number] 09:30:00 Test Item Value Reference Range Interpretation Comments cardiac troponin I (test code = cardiac <0.30 0.0-0.5 troponin I) [facility] HospitalCreatine kinase.MB [Mass/volume] in Serum or Plasma 2019-06-03 09:30:00 Test Item Value Reference Range Interpretation Comments mass creatinine kinase-mb (test 2.3 NG/mL 0.0-3.6 code = mass creatinine kinase-mb) [facility] HospitalMyoglobin [Mass/volume] in Serum or [id number] 09:30:00 Test Item Value Reference Range Interpretation Comments myoglobin (test code = myoglobin) 37 NG/mL 25-58 [facility] W Auto Differential panel - [id number] 09:30:00 Test Item Value Reference Range Interpretation Comments white blood count (test code = 5.6 K/uL 4.0-11.5 white blood count) red blood count (test code = red 3.98 M/uL 3.80-5.20 blood count) hemoglobin (test code = 12.7 g/dL 10.5-15.7 hemoglobin) hematocrit (test code = 39.8 % 34.0-50.0 hematocrit) Erythrocyte mean corpuscular 100.0 fL 86-100 volume [Entitic volume] (test code = 29397-3) mean corpuscular hemoglobin (test 31.9 pg 26.2-33.4 code = mean corpuscular hemoglobin) mean corpuscular HGB conc (test 31.9 g/dL 30-34 code = mean corpuscular HGB conc) red cell distribution width (test 13.6 % 12.0-15.5 code = red cell distribution width) platelet count (test code = 315 K/uL 165-450 platelet count) mean platelet volume (test code = 9.4 fL 9.4-12.6 mean platelet volume) Neutrophils.segmented/100 76.8 % 44.4-80.1 leukocytes in Blood (test code = 51399-9) Granulocytes Immature [#/volume] 0.0 K/uL 0.0-0.03 in Blood (test code = 42122-5) lymphocyte% (test code = 15.1 % 10.0-50.0 lymphocyte%) mono % (test code = mono %) 6.8 % 3.6-12.0 eos % (test code = eos %) 0.7 % 0.0-5.4 Basophils/100 leukocytes in 0.4 % 0.1-1.2 Unspecified specimen (test code = 68049-4) Neutrophils.band form [#/volume] 4.29 K/uL 1.56-6.13 in Blood (test code = 66992-1) Lymphocytes [#/volume] in 0.8 K/uL 1.18-3.74 L Unspecified specimen by Automated count (test code = 00359-7) mono # (test code = mono #) 0.38 K/uL 0.24-0.86 eos # (test code = eos #) 0.04 K/uL 0.04-0.36 basophil # (test code = basophil 0.02 K/uL 0.01-0.08 #) NRBC% (test code = NRBC%) 0 /100 WBC 0-0.2 NRBC# (test code = NRBC#) 0 K/uL [facility] Hospitaldifferential panel, [id number] 09:30:00 NeutrophilsBandLymphocyteAtypical LymphMonocyteEosinophilPlatelet EstimatePlatelet MorphologyMacrocytosisMaForrest General HospitalPT/[id number] 09:30:00 Test Item Value Reference Range Interpretation Comments prothrombin time (test code = 10.5 seconds 10.3-12.3 prothrombin time) INR in Blood by Coagulation 0.95 assay (test code = 78252-8) [facility] Hospitalpartial thromboplastin [id number] 09:30:00 Test Item Value Reference Range Interpretation Comments INR in Blood by Coagulation 23.4 seconds 22.5-37.0 assay (test code = 22460-7) [facility] HospitalComprehensive metabolic 2000 panel - Serum or Plasma 2019-06-03 09:30:00 Test Item Value Reference Range Interpretation Comments Glucose [Mass/volume] in Serum or 177 mg/dL 82-115 H Plasma (test code = 2345-7) Urea nitrogen [Mass/volume] in 9 mg/dL 8-23 Serum or Plasma (test code = 3094-0) osmolality calculated, serum (test 286 280-300 code = osmolality calculated, serum) creatinine (test code = 1.3 mg/dL 0.50-0.90 H creatinine) glomerular filtration rate (test 48.58 L code = glomerular filtration rate) Urea nitrogen/Creatinine [Mass 6.9 12-20 L Ratio] in Serum or Plasma (test code = 3097-3) sodium level (test code = sodium 142 mmol/L 135-145 level) potassium level (test code = 4.1 mmol/L 3.5-5.2 potassium level) chloride level (test code = 106 mmol/L 98-108 chloride level) CO2 (test code = CO2) 24 mmol/L 21-32 anion gap (test code = anion gap) 16.1 mEq/L 12-20 calcium level (test code = calcium 9.0 mg/dL 8.8-10.2 level) total protein (test code = total 7.0 g/dL 6.6-8.7 protein) albumin (test code = albumin) 3.6 g/dL 3.5-5.2 globulin (test code = globulin) 3.4 gm/dL A/G ratio (test code = A/G ratio) 1.1 >1.0 bilirubin,total (test code = 0.6 mg/dL 0.0-1.2 bilirubin,total) AST/SGOT (test code = AST/SGOT) 15 U/L 15-32 Alanine aminotransferase 11 U/L 0-33 [Enzymatic activity/volume] in Serum or Plasma (test code = 1742-6) Alkaline phosphatase [Enzymatic 86 U/L 35-105 activity/volume] in Serum or Plasma (test code = 6768-6) [facility] HospitalMagnesium [Moles/volume] in Unspecified specimen 2019-06-03 09:30:00 Test Item Value Reference Range Interpretation Comments magnesium level (test code = 1.8 mg/dL 1.6-2.4 magnesium level) [facility] HospitalEthanol [Mass/volume] in Serum or [id number] 09:30:00 Test Item Value Reference Range Interpretation Comments alcohol level (test code = alcohol <10.1 0.00-10.1 level) [facility] HospitalCreatine kinase [Enzymatic activity/volume] in Serum or [id number] 09:30:00 Test Item Value Reference Range Interpretation Comments creatine kinase (test code = creatine 150 U/L 20-180 kinase) [facility] HospitalNatriuretic peptide.B prohormone N-Terminal [Mass/volume] in Serum or [id number] 09:30:00 Test Item Value Reference Range Interpretation Comments N-term pro natriuretic peptide 200 pg/mL 0-125 H (test code = N-term pro natriuretic peptide) [facility] HospitalTroponin I.cardiac [Mass/volume] in [id number] 09:30:00 Test Item Value Reference Range Interpretation Comments cardiac troponin I (test code = cardiac <0.30 0.0-0.5 troponin I) [facility] HospitalCreatine kinase.MB [Mass/volume] in Serum or Plasma 2019-06-03 09:30:00 Test Item Value Reference Range Interpretation Comments mass creatinine kinase-mb (test 2.3 NG/mL 0.0-3.6 code = mass creatinine kinase-mb) [facility] HospitalMyoglobin [Mass/volume] in Serum or [id number] 09:30:00 Test Item Value Reference Range Interpretation Comments myoglobin (test code = myoglobin) 37 NG/mL -58 [facility] HospitalUrinalysis complete panel - [id number] 05:40:00 Test Item Value Reference Range Interpretation Comments Color of Urine by Auto yellow (test code = 78378-1) Appearance of Urine (test SL cloudy clear A code = 5767-9) Glucose [Presence] in Urine negative negative by Automated test strip (test code = 39644-6) Bilirubin.total negative negative [Mass/volume] in Urine (test code = 1978-6) Ketones [Mass/volume] in =1 negative H Urine by Automated test strip (test code = 29699-8) Specific gravity of Urine 1.022 1.003-1.030 by Automated test strip (test code = 67565-0) blood urine (test code = trace negative blood urine) pH of Urine (test code = 7.000 5-9 2756-5) protein urine (UA) (test =1+ (30 negative H code = protein urine (UA)) Urobilinogen [Presence] in =2.0 0.2-1.0 H Urine (test code = 01532-8) Nitrite [Presence] in Urine positive negative H by Test strip (test code = 5802-4) Leukocyte esterase =4 negative H [Presence] in Urine by Automated test strip (test code = 77531-2) Erythrocytes [#/volume] in =6-10 0-5 H Urine by Automated count (test code = 798-9) Leukocytes [#/area] in =11-14 0-5 H Urine sediment by Automated count (test code = 92633-4) Epithelial cells [Presence] =11-25 0-5 H in Urine sediment by Light microscopy (test code = 47436-0) Bacteria identified in trace none detect Urine by Culture (test code = 630-4) Casts [#/area] in Urine =2-5 none detect sediment by Automated count (test code = 36577-2) urine culture added? (test no. contaminated. code = urine culture added?) [facility] HospitalBacteria identified in Urine by [id number] 05:40:00Bacteria Ur CultField Memorial Community HospitalPT/[id number] 05:17:00 Test Item Value Reference Range Interpretation Comments prothrombin time (test code = 9.9 seconds 10.3-12.3 L prothrombin time) INR in Blood by Coagulation assay 0.94 (test code = 45593-0) [facility] Hospitalpartial thromboplastin [id number] 05:17:00 Test Item Value Reference Range Interpretation Comments INR in Blood by Coagulation 24.3 seconds 22.5-37.0 assay (test code = 33095-1) [facility] HospitalCB W Auto Differential panel - [id number] 05:17:00 Test Item Value Reference Range Interpretation Comments white blood count (test 5.6 K/uL 4.0-11.5 code = white blood count) red blood count (test 4.89 M/uL 3.80-5.20 code = red blood count) Hemoglobin [Mass/volume] 15.0 g/dL 10.5-15.7 in Blood (test code = 718-7) hematocrit (test code = 47.9 % 34.0-50.0 hematocrit) Erythrocyte mean 97.9 fL 78-98 corpuscular volume [Entitic volume] (test code = 92539-0) Erythrocyte mean 30.6 pg 26.2-33.4 corpuscular hemoglobin [Entitic mass] (test code = 56737-8) mean corpuscular HGB 31.3 g/dL 31.5-36.2 L conc (test code = mean corpuscular HGB conc) red cell distribution 13.3 % 11.5-15.5 width (test code = red cell distribution width) Platelets [#/volume] in 283 K/uL 137-338 Blood (test code = 53063-3) Platelet mean volume 6.8 fL 8.4-11.8 L [Entitic volume] in Blood (test code = 20796-0) Neutrophils.band 68.6 % 44.4-80.1 form/100 leukocytes in Blood (test code = 18562-0) Lymphocytes/100 20.7 % 10.0-50.0 leukocytes in Body fluid (test code = 93479-9) Monocytes/100 leukocytes 9.2 % 3.6-12.04 in Blood by Automated count (test code = 5905-5) Eosinophils/100 0.4 % 0.0-5.41 leukocytes in Blood by Automated count (test code = 713-8) Basophils/100 leukocytes 1.1 % 0.0-0.79 H in Blood by Automated count (test code = 706-2) Platelet morphology hypersegmented polys normal RBC. finding [Identifier] in Blood (test code = 93434-8) [facility] Hospitaldifferential panel, [id number] 05:17:00 NeutrophilsBandLymphocyteAtypical LymphMonocyteEosinophilBasophilMyelocytePlatelet EstimatePlatelet M orphologyHypersegmented PolysToxic VacuolationSmudge CellsField Memorial Community HospitalComprehensive metabolic 2000 panel - Serum or [id number] 05:17:00 Test Item Value Reference Range Interpretation Comments Glucose [Mass/volume] in Serum or 115 mg/dL 82-115 Plasma (test code = 2345-7) Urea nitrogen [Mass/volume] in 8 mg/dL 8-23 Serum or Plasma (test code = 3094-0) Osmolality of Serum or Plasma 275 280-300 L (test code = 2692-2) creatinine (test code = 0.8 mg/dL 0.50-0.90 creatinine) glomerular filtration rate (test >60.00 code = glomerular filtration rate) Urea nitrogen/Creatinine [Mass 10.0 12-20 L Ratio] in Serum or Plasma (test code = 3097-3) sodium level (test code = sodium 138 mmol/L 135-145 level) potassium level (test code = 4.0 mmol/L 3.5-5.2 potassium level) chloride level (test code = 98 mmol/L 98-108 chloride level) CO2 (test code = CO2) 22 mmol/L 21-32 anion gap (test code = anion gap) 22.0 mEq/L 12-20 H calcium level (test code = calcium 9.7 mg/dL 8.8-10.2 level) total protein (test code = total 8.8 g/dL 6.6-8.7 H protein) albumin (test code = albumin) 4.3 g/dL 3.5-5.2 globulin (test code = globulin) 4.5 gm/dL A/G ratio (test code = A/G ratio) 1.0 >1.0 bilirubin,total (test code = 0.7 mg/dL 0.0-1.2 bilirubin,total) AST/SGOT (test code = AST/SGOT) 20 U/L 15-32 Alanine aminotransferase 19 U/L 0-33 [Enzymatic activity/volume] in Serum or Plasma (test code = 1742-6) Alkaline phosphatase [Enzymatic 109 U/L 35-105 H activity/volume] in Serum or Plasma (test code = 6768-6) [facility] HospitalCreatine kinase [Enzymatic activity/volume] in Serum or [id number] 05:17:00 Test Item Value Reference Range Interpretation Comments creatine kinase (test code = creatine 246 U/L 20-180 H kinase) [facility] HospitalTroponin I.cardiac [Mass/volume] in [id number] 05:17:00 Test Item Value Reference Range Interpretation Comments cardiac troponin I (test code = cardiac <0.30 0.0-0.5 troponin I) [facility] HospitalCreatine kinase.MB [Mass/volume] in Serum or Plasma 2018-10-09 05:17:00 Test Item Value Reference Range Interpretation Comments mass creatinine kinase-mb (test 3.9 NG/mL 0.0-3.6 H code = mass creatinine kinase-mb) [facility]
[2021-01-01] MEDS ORDERED: NA CHLORIDE 0.9% 1,000 ML ONE ×3 (14:46→22:23)
[2021-01-01 14:52] LABS: Absolute Lymphocytes (CBC) 0.7 K/uL (0.7-4.9); Basophils % 0.4 % (0-1.3); Hematocrit 28.1 % (36.0-45.0); MPV 8.5 fL (7.6-11.3); RBC Red Blood Cell Count 2.95 M/uL (3.86-4.86)
[2021-01-01] MEDS ORDERED: PANTOPRAZOLE 40 MG INJ ONE (15:00)
[2021-01-01] MEDS: PANTOPRAZOLE INJ 80 MG in NA CHLORIDE 0.9% 250 ML IV SCH (15:00)
[2021-01-01] MEDS ORDERED: NA CHLORIDE 0.9% 250 ML ONE ×2 (15:00→17:31)
[2021-01-01 15:19] LABS: Albumin 2.8 g/dL (3.4-5.0); Bilirubin Direct 0.2 mg/dL (0-0.2); Bilirubin Total 0.5 mg/dL (0.2-1.0); Potassium 4.1 mmol/L (3.5-5.1); Protein, Total 6.4 g/dL (6.4-8.2)
[2021-01-01 15:29] LABS: Protime INR 1.09
--- NOTE | 2021-01-01 15:52 | RAD REPORT ---
EXAM DESCRIPTION: CT - Head Brain Wo Cont - 01/01/2021 3:34 pm CLINICAL HISTORY: Syncope COMPARISON: 2019 TECHNIQUE: Computed axial tomography of the head was obtained. IV contrast was not requested. All CT scans are performed using dose optimization technique as appropriate and may include automated exposure control or mA/KV adjustment according to patient size. FINDINGS: An intracranial bleed is not seen . The ventricles are normal in caliber. No extra-axial fluid collection is noted. Basal ganglia calcifications without significant change. Mild low-density within periventricular whit e matter likely ischemic changes secondary to small vessel disease Fluid within the sinuses/ mastoids is not seen. IMPRESSION: No acute intracranial abnormality is seen. If patient's symptoms persist MRI of the bra in would be recommended.
--- NOTE | 2021-01-01 15:58 | RAD REPORT ---
EXAM DESCRIPTION: CT - Abdomen Pelvis W Contrast - 01/01/2021 3:36 pm CLINICAL HISTORY: Abdominal pain/GI bleed COMPARISON: none. TECHNIQUE: Computed axial tomography of the abdomen pelvis was obtained. 100 cc Isovue-300 was admin istered intravenously. Oral contrast was not requested which limits evaluation of bowel. All CT scans are performed using dose optimization technique as appropriate and may include automated exposure control or mA/KV adjustment according to patient size. FINDINGS: The liver, spleen, pancreas, adrenal and right kidney appear unremarkable. Small nonobstructing left renal calculi. The stomach is distended and fluid-filled. Moderate hiatal hernia is present. The visualized esophagu s is dilated and fluid-filled. A Prince catheter is present the bladder. There is no evidence of diverticulitis. IMPRESSION: Gastric distention. Moderate hiatal hernia Fluid within a dilated esophagus may indicate GE reflux
--- NOTE | 2021-01-01 16:00 | RAD REPORT ---
EXAM DESCRIPTION: [facility] Single View01/01/2021 3:02 pm CLINICAL HISTORY: GI bleed COMPARISON: none FINDINGS: The lungs appear clear of acute infiltrate. The heart is normal size. Aorta is tortuous/e ctatic IMPRESSION: No acute abnormalities displayed
[2021-01-01] MEDS ORDERED: INSULIN -REGULAR HUMAN 50 UNIT/0.5 ML ML ONE (16:05)
[2021-01-01 16:31] LABS: Absolute Lymphocytes (CBC) 0.4 K/uL (0.7-4.9); Basophils % 0.1 % (0-1.3); Lymphocytes % 5.2 % (15.3-44.8); MPV 8.3 fL (7.6-11.3); RBC Red Blood Cell Count 2.14 M/uL (3.86-4.86)
[2021-01-01 16:36] LABS: Hematocrit 20.1 % (36.0-45.0)
--- NOTE | 2021-01-01 17:14 | ER ---
Nurse's Notes [facility] Name: Kyler Rushing Age: 75 yrs Sex: Female : 1945 Arrival Date: 01/01/2021 Time: 14:20 Bed 15 Private MD: Diagnosis: G. I. Bleeding. Syncopal Episode. Anemia. Uncontrolled diabetes Presentation: 01/01 14:09 Chief complaint: EMS states: called out for pt being unresponsive witnessed by the sv family. SBP 100, BS-500 20G L FA and NS bolus started. Risk Assessment: Do you want to hurt yourself or someone else? Patient reports no desire to harm self or others. Onset of symptoms was January 01, 2021. 14:09 Acuity: TOVA 2 sv 14:09 Method Of Arrival: EMS: [facility] 14:20 Coronavirus screen: Client denies travel out of the [place] in the last 14 days. At this sv time, the client does not indicate any symptoms associated with coronavirus-19. Ebola Screen: No symptoms or risks identified at this time. Initial Sepsis Screen: Does the patient meet any 2 criteria? HR > 90 bpm. No. Patient's initial sepsis screen is negative. Does the patient have a suspected source of infection? No. Patient's initial sepsis screen is negative. Triage Assessment: 14:10 General: Appears in no apparent distress. uncomfortable, obese, well developed, well sv nourished, Behavior is calm, cooperative, appropriate for age. Pain: Denies pain. Neuro: Level of Consciousness is obeys commands, lethargic, Oriented to person, Moves all extremities. Cardiovascular: Patient's skin is warm and dry. Rhythm is sinus tachycardia. Respiratory: Airway is patent Respiratory effort is even, unlabored, Respiratory pattern is regular, symmetrical. GI: Pt cleaned of incontinence and black stool noted with small clots. : Pt was incontinent of urine. Derm: Skin is pink, warm \T\ dry. Historical: - Allergies: 16:04 No Known Allergies; sv - Home Meds: 16:04 metformin 500 mg Oral Tb24 1 tab once daily [Active]; levothyroxine 200 mcg tab 1 tab sv once daily [Active]; Plavix 75 mg Oral tab 1 tab once daily [Active]; isosorbide mononitrate 30 mg Oral Tb24 1 tab once daily [Active]; esomeprazole magnesium 40 mg oral cpDR 1 cap once daily [Active]; atorvastatin 40 mg oral tab 1 tab nightly [Active]; - PMHx: 16:04 Diabetes - IDDM; High Cholesterol; Hypertension; sv - Immunization history:: Adult Immunizations. - Social history:: Smoking status: . Screenin:15 Abuse screen: Denies threats or abuse. Denies injuries from another. Nutritional sv screening: No deficits noted. Tuberculosis screening: No symptoms or risk factors identified. Fall Risk None identified. Assessment: 14:25 Reassessment: Pt started vomiting a large amount of blood with clots about 300 mls. sv Called for assistance, Suad POWELL and Dr Osorio came to the bedside. 14:42 Reassessment: Daughter at bedside. ss 15:10 Reassessment: Patient appears in no apparent distress at this time. No changes from sv previously documented assessment. 16:09 Reassessment: Patient appears in no apparent distress at this time. Patient and/or sv family updated on plan of care and expected duration. Pain level reassessed. Patient is alert, oriented x 3, equal unlabored respirations, skin warm/dry/pink. Daughter at the bedside. 16:51 Reassessment: Patient appears in no apparent distress at this time. No changes from hb previously documented assessment. Patient and/or family updated on plan of care and expected duration. Pain level reassessed. 18:05 Reassessment: I was at the bedside with the daughter getting the blood transfusion sv setup ready. I noted that the pt's head started deviating to the left and eyes rolled back and was not responding to verbal stimuli. Staff assist button was pushed and Suad POWELL, Sarika POWELL, and Fahad RAO came to the bedside. Pt's episode lasted about 45 seconds. Pt then became responsive and speaking to us. Pt stated that she felt like she passed out and now feels tired. 18:35 Reassessment: Called storage facility housekeeper Alexa POWELL to get Insulin for the pt since it is sv not in our pyxis. 20:43 Reassessment: Anamaria- daughter-[id number]. mg2 Vital Signs: 14:20 BP 118 / 86; Pulse 133; Resp 16; Temp 97; Pulse Ox 100% ; sv 14:41 BP 108 / 70; Pulse 115; Resp 15; ss 15:08 BP 95 / 66; Pulse 112; Resp 16; Pulse Ox 100% on R/A; sv 16:00 BP 112 / 61; Pulse 109; Resp 16; Pulse Ox 99% ; sv 16:38 BP 96 / 63; Pulse 108; ss 17:00 BP 105 / 76; Pulse 105; Resp 14; Pulse Ox 100% ; sv 17:30 BP 98 / 70; Pulse 105; Resp 14; Pulse Ox 100% ; sv 18:00 BP 95 / 64; Pulse 101; Resp 16; Pulse Ox 100% ; sv ED Course: 14:09 Maintain EMS IV. Dressing intact. Site clean \T\ dry. Gauge \T\ site: 20G L FA. sv 14:10 [employer] consultant on. Pulse ox on. NIBP on. Door closed. Warm blanket given. Head of bed sv elevated. 14:15 Prince cath inserted, using sterile technique, 18 Fr., by me, balloon inflated, to sv gravity drainage, returned clear yellow urine. Patient tolerated well. 14:15 Arm band placed on. sv 14:15 Patient has correct armband on for positive identification. Placed in gown. Bed in low sv position. Call light in reach. Side rails up X2. 14:20 Patient arrived in ED. ds1 14:27 Mello Osorio MD is Attending Physician. pkl 14:30 T\T\S collected, blood band applied to patient. Inserted saline lock: 20 gauge in right sv antecubital area, using aseptic technique. ,using aseptic technique. done by Suad POWELL Blood collected. 14:35 Liya Servin, RN is Primary Nurse. sv 14:38 Triage completed. sv 15:02 XRAY CXR (1 view) In Process Unspecified. EDMS 15:35 CT Head Brain wo Cont In Process Unspecified. EDMS 15:36 CT Abd/Pelvis - IV Contrast Only In Process Unspecified. EDMS 15:41 Ptt, Activated Sent. sv 15:41 Creatinine, Serum Sent. sv 15:41 PT-INR Sent. sv 16:23 Lab(s) recollected, by me, sent to lab. jp3 17:11 Uri Saxena MD is Hospitalizing Provider. pkl 18:30 COVID swab sent to lab. jp3 19:17 Report given to Jovi POWELL and Mary POWELL. sv 19:18 Primary Nurse role handed off by Liya Servin RN sv 19:28 No provider procedures requiring assistance completed. Patient admitted, IV remains in mg2 place. Administered Medications: 15:00 Drug: NS 0.9% 1000 ml Route: IV; Rate: 125 ml/hr; Site: right antecubital; sv 15:00 Drug: ProTONIX (pantoprazole) 40 mg Route: IVP; Site: right antecubital; sv 15:30 Follow up: Response: No adverse reaction sv 15:00 Drug: ProTONIX (pantoprazole) 8 mg/hr Route: IV; Rate: 25 ml/hr; Site: right sv antecubital; 15:50 Drug: Insulin Regular Human 10 units {Co-Signature: jessica (Liya Servin RN).} Route: hb IVP; Site: right wrist; 17:00 Follow up: Response: No adverse reaction; Blood sugar is lowered sv 18:07 Drug: Benadryl (diphenhydrAMINE) 12.5 mg Route: IVP; Site: right wrist; sv 18:43 Follow up: Response: No adverse reaction sv 18:08 Drug: Solu-CORTEF (hyrdoCORTISONE) 50 mg Route: IVP; Site: right wrist; sv 18:42 Follow up: Response: No adverse reaction sv 18:34 Drug: NS 0.9% 500 ml Route: IV; Rate: bolus; Site: right antecubital; sv 19:41 Drug: Insulin NPH-Regular Human Rec 70/30 40 units {Co-Signature: aleisha (Mary Trinidad [facility] RN).} Route: Sub-Q; Site: right upper arm; Outcome: 17:13 Decision to Hospitalize by Provider. pkl 19:28 Admitted to ER Hold. [facility]. mg2 19:28 Condition: stable 19:28 Instructed on the need for admit. 01/03 15:38 Patient left the ED. ld1 Signatures: Dispatcher [employer] EDLiya Gavin RN RN Mello Osorio MD MD pkl Gabriella Polanco ds1 Suad Reed RN RN Sarika Hernández RN RN Jovi Smith RN RN [facility] Tyree Sinha jp3 Keila Lau RN RN ld1 Liya Servin RN Mary Trinidad RN wh Corrections: (The following items were deleted from the chart) 01/01 16:05 14:20 BP 118 / 86; Pulse 133bpm; Resp 16bpm; Pulse Ox 100%; sv sv
--- NOTE | 2021-01-01 17:14 | EDPHYS ---
Physician Documentation [facility] Name: Kyler Rushing Age: 75 yrs Sex: Female : 1945 Arrival Date: 01/01/2021 Time: 14:20 Bed 15 Private MD: ED Physician Mello Osorio HPI: 01/01 14:56 This 75 yrs old Black Female presents to ER via EMS with complaints of Unresponsive. pkl 14:56 The patient has experienced syncope, became unresponsive. Onset: The symptoms/episode pkl began/occurred just prior to arrival. Duration: This was a single episode, that lasted 10 minute(s). Context: the episode(s) was witnessed, by family, daughter. Associated signs and symptoms: Pertinent positives: Vomiting blood and passing black stool. Had blood transfusion about 5 years ago. H/O of CVA. Historical: - Allergies: 16:04 No Known Allergies; sv - Home Meds: 16:04 metformin 500 mg Oral Tb24 1 tab once daily [Active]; levothyroxine 200 mcg tab 1 tab sv once daily [Active]; Plavix 75 mg Oral tab 1 tab once daily [Active]; isosorbide mononitrate 30 mg Oral Tb24 1 tab once daily [Active]; esomeprazole magnesium 40 mg oral cpDR 1 cap once daily [Active]; atorvastatin 40 mg oral tab 1 tab nightly [Active]; - PMHx: 16:04 Diabetes - IDDM; High Cholesterol; Hypertension; sv - Immunization history:: Adult Immunizations. - Social history:: Smoking status: . ROS: 14:56 Eyes: Negative for injury, pain, redness, and discharge, ENT: Negative for injury, pkl pain, and discharge, Neck: Negative for injury, pain, and swelling, Cardiovascular: Negative for chest pain, palpitations, and edema, Respiratory: Negative for shortness of breath, cough, wheezing, and pleuritic chest pain. 14:56 Abdomen/GI: Positive for black/tarry stool, vomiting blood. 14:56 Back: Negative for acute changes. 14:56 : Negative for urinary symptoms. 14:56 MS/extremity: Negative for acute changes. 14:56 Skin: Negative for rash. 14:56 Neuro: Positive for altered mental status, loss of consciousness. Exam: 14:56 Abdomen/GI: Bowel sounds: normal, Palpation: abdomen is soft and non-tender, in all pkl quadrants, black stool noted on diaper. 14:56 Head/Face: Normocephalic, atraumatic. Eyes: Pupils equal round and reactive to light, extra-ocular motions intact. Lids and lashes normal. Conjunctiva and sclera are non-icteric and not injected. Cornea within normal limits. Periorbital areas with no swelling, redness, or edema. ENT: Nares patent. No nasal discharge, no septal abnormalities noted. Tympanic membranes are normal and external auditory canals are clear. Oropharynx with no redness, swelling, or masses, exudates, or evidence of obstruction, uvula midline. Mucous membranes moist. Neck: Trachea midline, no thyromegaly or masses palpated, and no cervical lymphadenopathy. Supple, full range of motion without nuchal rigidity, or vertebral point tenderness. No Meningismus. Chest/axilla: Normal chest wall appearance and motion. Nontender with no deformity. No lesions are appreciated. Cardiovascular: Regular rate and rhythm with a normal S1 and S2. No gallops, murmurs, or rubs. Normal PMI, no JVD. No pulse deficits. Respiratory: Lungs have equal breath sounds bilaterally, clear to auscultation and percussion. No rales, rhonchi or wheezes noted. No increased work of breathing, no retractions or nasal flaring. 14:56 Abdomen/GI: Bowel sounds: normal, Palpation: abdomen is soft and non-tender, in all quadrants, Bloody vomitus noted. 14:56 Back: Exam negative for acute changes. 14:56 : Exam negative for acute changes. 14:56 Musculoskeletal/extremity: Exam is negative for acute changes. 14:56 Skin: Exam negative for 14:56 Neuro: Orientation: appropriate for stated age, Mentation: able to follow commands, Cranial nerves: grossly normal, Motor: moves all fours. Vital Signs: 14:20 BP 118 / 86; Pulse 133; Resp 16; Temp 97; Pulse Ox 100% ; sv 14:41 BP 108 / 70; Pulse 115; Resp 15; ss 15:08 BP 95 / 66; Pulse 112; Resp 16; Pulse Ox 100% on R/A; sv 16:00 BP 112 / 61; Pulse 109; Resp 16; Pulse Ox 99% ; sv 16:38 BP 96 / 63; Pulse 108; ss 17:00 BP 105 / 76; Pulse 105; Resp 14; Pulse Ox 100% ; sv 17:30 BP 98 / 70; Pulse 105; Resp 14; Pulse Ox 100% ; sv 18:00 BP 95 / 64; Pulse 101; Resp 16; Pulse Ox 100% ; sv MDM: 14:27 Patient medically screened. pkl 17:03 Data reviewed: vital signs, nurses notes, lab test result(s), EKG, radiologic studies, pkl CT scan, plain films. ED course: Talked to Dr. Han, will consult Admit Dr. Saxena. 01/01 14:28 Order name: Basic Metabolic Panel; Complete Time: 15:55 pkl 01/01 14:28 Order name: CBC with Diff; Complete Time: 15:08 pkl 01/01 14:28 Order name: Hepatic Function; Complete Time: 15:55 pkl 01/01 14:28 Order name: Lipase; Complete Time: 15:55 pkl 01/01 14:32 Order name: Type And Screen pkl 01/01 14:35 Order name: PT-INR sv 01/01 14:35 Order name: Ptt, Activated sv 01/01 14:36 Order name: Protime (+INR); Complete Time: 03:59 EDMS 01/01 14:36 Order name: PTT, Activated Partial Thromb EDMS 01/01 14:48 Order name: Creatinine, Serum pkl 01/01 15:32 Order name: Glucose, Ancillary Testing; Complete Time: 15:55 EDMS 01/01 16:16 Order name: CBC with Diff; Complete Time: 03:59 pkl 01/01 16:33 Order name: Glucose, Ancillary Testing; Complete Time: 17:02 EDMS 01/01 16:58 Order name: BMP; Complete Time: 03:59 sv 01/01 17:18 Order name: ABO/RH no charge; Complete Time: 03:59 EDMS 01/01 17:41 Order name: Packed RBC Leukored EDMS 01/01 17:43 Order name: Basic Metabolic Panel EDMS 01/01 17:43 Order name: Basic Metabolic Panel EDMS 01/01 17:43 Order name: CBC with Automated Diff EDMS 01/01 17:43 Order name: CBC with Automated Diff EDMS 01/01 17:43 Order name: Hematocrit EDMS 01/01 17:43 Order name: Hematocrit [facility] 01/01 17:43 Order name: Hematocrit [facility] 01/01 17:43 Order name: Hemoglobin [facility] 01/01 17:43 Order name: Hemoglobin [facility] 01/01 17:43 Order name: Hemoglobin [facility] 01/01 17:43 Order name: Protime (+INR) [facility] 01/01 17:43 Order name: Protime (+INR) [facility] 01/01 17:43 Order name: PTT, Activated Partial Thromb [facility] 01/01 14:32 Order name: XRAY CXR (1 view); Complete Time: 16:54 pkl 01/01 14:32 Order name: EKG; Complete Time: 14:32 pkl 01/01 14:48 Order name: CT Head Brain wo Cont; Complete Time: 15:55 pkl 01/01 14:48 Order name: CT Abd/Pelvis - IV Contrast Only; Complete Time: 15:58 pkl 01/01 17:43 Order name: CONS Physician Consult [facility] 01/01 17:43 Order name: PTT, Activated Partial Thromb [facility] 01/01 17:46 Order name: COVID-19 : Document "Date of Symptom Onset" if Symptomatic. eb 01/01 18:34 Order name: CREATININE WHOLE BLOOD; Complete Time: 03:59 [facility] 01/01 19:17 Order name: SARS-COV-2 RT PCR; Complete Time: 03:59 [facility] 01/01 19:53 Order name: Glucose, Ancillary Testing; Complete Time: 03:59 [facility] 01/01 21:41 Order name: CBC Smear Scan; Complete Time: 03:59 [facility] 01/01 22:51 Order name: PTT, Activated Partial Thromb; Complete Time: 03:59 [facility] 01/02 01:34 Order name: Glucose, Ancillary Testing; Complete Time: 03:59 [facility] 01/02 08:57 Order name: US [facility] 01/02 11:35 Order name: Hemoglobin [facility] 01/02 11:35 Order name: Hematocrit [facility] 01/02 13:58 Order name: Glucose, Ancillary Testing [facility] 01/02 17:27 Order name: Hemoglobin [facility] 01/02 17:27 Order name: Hematocrit [facility] 01/02 21:18 Order name: Glucose, Ancillary Testing [facility] 01/03 02:05 Order name: Glucose, Ancillary Testing ED[facility] 01/03 06:14 Order name: Glucose, Ancillary Testing EDMS 01/03 09:14 Order name: Glucose, Ancillary Testing EDMS 01/03 12:51 Order name: Glucose, Ancillary Testing EDMS 01/01 14:28 Order name: IV Saline Lock; Complete Time: 15:00 pkl 01/01 14:28 Order name: Labs collected and sent; Complete Time: 15:01 pkl 01/01 17:43 Order name: NPO EDMS 01/01 17:43 Order name: EKG Electrocardiogram EDMS 01/01 17:43 Order name: EKG Electrocardiogram EDMS 01/01 17:43 Order name: EKG Electrocardiogram EDMS 01/01 17:43 Order name: EKG Electrocardiogram EDMS 01/01 17:43 Order name: EKG Electrocardiogram EDMS 01/01 17:43 Order name: EKG Electrocardiogram EDMS 01/01 17:43 Order name: EKG Electrocardiogram EDMS 01/01 17:43 Order name: EKG Electrocardiogram EDMS 01/01 17:43 Order name: EKG Electrocardiogram EDMS 01/01 17:43 Order name: EKG Electrocardiogram EDMS 01/01 17:43 Order name: EKG Electrocardiogram EDMS Administered Medications: 15:00 Drug: NS 0.9% 1000 ml Route: IV; Rate: 125 ml/hr; Site: right antecubital; sv 15:00 Drug: ProTONIX (pantoprazole) 40 mg Route: IVP; Site: right antecubital; sv 15:30 Follow up: Response: No adverse reaction sv 15:00 Drug: ProTONIX (pantoprazole) 8 mg/hr Route: IV; Rate: 25 ml/hr; Site: right sv antecubital; 15:50 Drug: Insulin Regular Human 10 units {Co-Signature: sv (Liya Servin RN).} Route: hb IVP; Site: right wrist; 17:00 Follow up: Response: No adverse reaction; Blood sugar is lowered sv 18:07 Drug: Benadryl (diphenhydrAMINE) 12.5 mg Route: IVP; Site: right wrist; sv 18:43 Follow up: Response: No adverse reaction sv 18:08 Drug: Solu-CORTEF (hyrdoCORTISONE) 50 mg Route: IVP; Site: right wrist; sv 18:42 Follow up: Response: No adverse reaction sv 18:34 Drug: NS 0.9% 500 ml Route: IV; Rate: bolus; Site: right antecubital; sv 19:41 Drug: Insulin NPH-Regular Human Rec 70/30 40 units {Co-Signature: aleisha (Mary Trinidad mg2 RN).} Route: Sub-Q; Site: right upper arm; Disposition: 01/01/21 17:13 Hospitalization ordered by Uri Saxena for Inpatient Admission. Preliminary diagnosis is G. I. Bleeding. Syncopal Episode. Anemia. Uncontrolled diabetes. - Bed requested for [facility] ER HOLD. - Status is Inpatient Admission. ld1 - Condition is Stable. - Problem is new. - Symptoms are unchanged. Critical care time excluding procedures: 17:03 Critical care time: Bedside Care: 40 minutes. Total time: 40 minutes pkl Signatures: Dispatcher [employer] EDMS iLya Servin, Alexa Aragon RN, RN RN dw Lam, Pin, MD MD pkl Attema, Butch, CARTON FORMING MACHINE HELPER-C CARTON FORMING MACHINE HELPER-Cla1 Sarika Hernández RN RN Jvoi Smith RN RN [facility] Keila Lau RN RN ld1 Liya Servin RN Mary moraes Corrections: (The following items were deleted from the chart) 14:49 14:49 Creatinine ordered. EDMS EDMS 14:49 14:49 Creatinine ordered. EDNH EDMS 19:12 17:13 Hospitalization Ordered by Uri Saxena MD for Inpatient Admission. Preliminary dw diagnosis is G. I. Bleeding. Syncopal Episode. Anemia. Uncontrolled diabetes. Bed requested for Telemetry/MedSurg (Inpatient). Status is Inpatient Admission. Condition is Stable. Problem is new. Symptoms are unchanged. pkl 01/03 15:38 01/01 19:12 01/01/2021 17:13 Hospitalization Ordered by Uri Saxena MD for Inpatient ld1 Admission. Preliminary diagnosis is G. I. Bleeding. Syncopal Episode. Anemia. Uncontrolled diabetes. Bed requested for [facility] ER HOLD. Status is Inpatient Admission. Condition is Stable. Problem is new. Symptoms are unchanged. dw
[2021-01-01 17:36] LABS: Potassium 3.9 mmol/L (3.5-5.1)
[2021-01-01] MEDS ORDERED: ONDANSETRON 4 MG/2 ML VIAL IV PRN (17:38)
[2021-01-01] MEDS ORDERED: MORPHINE 2 MG/ML SYR IV PRN (17:38)
[2021-01-01] MEDS ORDERED: NA CHLORIDE 0.9% 250 ML IV SCH (18:00)
[2021-01-01] MEDS ORDERED: HYDROCORTISONE SUC 100 MG INJ ONE (18:07)
[2021-01-01] MEDS ORDERED: DIPHENHYDRAMINE 50 MG/ML VIAL ONE (18:07)
[2021-01-01] MEDS ORDERED: ACETAMINOPHEN 325 MG TABLET ONE (18:07)
[2021-01-01] MEDS ORDERED: LORazepam 2 MG/ML VIAL ONE (18:18)
[2021-01-01] MEDS ORDERED: INSULIN 70/30 100 UNITS/ML SQ ONE (19:35)
[2021-01-01 21:41] LABS: Blood Morphology Comment NOT SEEN (NOT SEEN); Platelet Estimate ADEQ; White Blood Cell Scan OK (OK)
[2021-01-01] MEDS: NA CHLORIDE 0.9% 1,000 ML IV SCH (22:07)
[2021-01-01 22:36] VITALS: BMI 38.9
[2021-01-02] MEDS ORDERED: NA CHLORIDE 0.9% 250 ML ONE ×2 (01:22→21:10)
[2021-01-02] MEDS ORDERED: PANTOPRAZOLE 40 MG INJ ONE ×2 (01:22→21:10)
[2021-01-02] MEDS: PANTOPRAZOLE INJ 80 MG in NA CHLORIDE 0.9% 250 ML IV SCH ×2 (01:34→11:00)
[2021-01-02] MEDS: NA CHLORIDE 0.9% 1,000 ML IV SCH ×2 (04:00→14:00)
--- NOTE | 2021-01-02 05:06 | P.HP ---
Certification for Inpatient Patient admitted to: Inpatient With expected LOS: >2 Midnights Patient will require the following post-hospital care: None Practitioner: I am a practitioner with admitting privileges, knowledge of patient current condition, hospital course, and medical plan of care. Services: Services provided to patient in accordance with Admission requirements found in Title 42 Section 412.3 of the Code of Federal Regulations Patient History Date of Service: 01/01/21 Reason for admission: GI bleeding/syncope History of Present Illness: Patient is a 75-year-old female came to the hospital with a syncopal event. Family had noted she has some vomiting with coffee-ground emesis. She started getting lightheaded and became a little obtunded. They brought her into the emergency room for further evaluation. In the emergency room she was found have a hemoglobin of 6.4. Patient will be given 2 units of packed red blood cells. Will start patient on a Protonix drip. GI consultation has been obtained. Keep patient NPO after midnight. Also workup patient's syncopal event. She apparently became obtunded for about 60 seconds. The ER nurses says she did something similar. Will also get a EEG along with a carotid Doppler and echocardiogram. Monitor her on telemetry as well. Allergies No Known Allergies Allergy (Verified 01/01/21 22:06) Home Medications: Atorvastatin Calcium [Lipitor] 40 mg PO BEDTIME 01/01/21 Clopidogrel Bisulfate [Plavix] 75 mg PO DAILY 01/01/21 Esomeprazole Magnesium 40 mg PO DAILY 01/01/21 Isosorbide Mononitrate [Isosorbide Mononitrate ER] 30 mg PO DAILY 01/01/21 Levothyroxine Sodium [Levothyroxine] 200 mcg PO DAILY 01/01/21 Metformin ER [Glucophage ER] 500 mg PO DAILY 01/01/21 - Past Medical/Surgical History Has patient received pneumonia vaccine in the past: Yes Diabetic: Yes -: hyperlipidemia -: Type 2 diabetes -: HTN -: Thyroid surgery -: right shoulder - Family History Father Medical History: Hypertension, Diabetes Mother Medical History: Hypertension, Diabetes, Cancer Notes: stomach cancer - Social History Smoking Status: Never smoker Alcohol use: No CD- Drugs: No Caffeine use: Yes Place of Residence: Home Review of Systems 10-point ROS is otherwise unremarkable Physical Examination - Vital Signs Temperature: 98 F Blood Pressure: 97/63 Pulse: 88 Respirations: 18 Pulse Ox (%): 100 - Physical Exam General: Alert, In no apparent distress, Oriented x2, Confused HEENT: Atraumatic, PERRLA, Mucous membr. moist/pink, Other (Conjunctiva pallor), EOMI, Sclerae nonicteric Neck: Supple, 2+ carotid pulse no bruit, No LAD, Without JVD or thyroid abnormality Respiratory: Clear to auscultation bilaterally, Normal air movement Cardiovascular: Regular rate/rhythm, Normal S1 S2, Systolic murmur Gastrointestinal: Normal bowel sounds, Soft and benign, Non-distended, No rebound, No guarding, Tenderness (Mild epigastric tenderness) Musculoskeletal: No clubbing, No swelling, No tenderness Integumentary: No rashes Neurological: Normal speech, Normal tone, Sensation intact, Cranial nerves 3-12 intact, Normal affect, Abnormal gait, Abnormal tone Lymphatics: No axilla or inguinal lymphadenopathy - Studies Laboratory Data (last 24 hrs) 01/01/21 16:22: Sodium 134 L, Potassium 3.9, BUN 23 H, Creatinine 1.17, Glucose 543 H* 01/01/21 16:22: WBC 7.90, Hgb 6.4 L*, Hct 20.1 L* D, Plt Count 181 D 01/01/21 14:34: PT 12.6 H, INR 1.09, APTT Cancelled 01/01/21 14:34: WBC 7.70, Hgb 8.8 L, Hct 28.1 L, Plt Count 258 01/01/21 14:34: Sodium 132 L, Potassium 4.1, BUN 24 H, Creatinine 1.46 H, Glucose 624 H*, Total Bilirubin 0.5, AST 14 L, ALT 20, Alkaline Phosphatase 76, Lipase 82 Assessment & Plan - Problems (Diagnosis) (1) Upper GI bleeding Current Visit: Yes Status: Acute (2) Syncope and collapse Current Visit: Yes Status: Acute (3) Melena Current Visit: Yes Status: Acute (4) Hypertension Current Visit: Yes Status: Acute (5) Type 2 diabetes mellitus Current Visit: Yes Status: Acute - Plan Plan: 1. Continue with IV hydration and PPI drip 2. Continue with IV antibiotics 3. Continue with pain control 4. NPO 5. GI consultation 6. Serial H&H, and we will monitor LFTs and lipase along with electrolytes. 7. Carotid Doppler and echocardiogram 8. EEG 9. Monitor on telemetry 10. DVT prophylaxis Discharge Plan: Home Plan to discharge in: Greater than 2 days - Advance Directives Does patient have a Living Will: No Does patient have a Durable POA for Healthcare: No - Code Status/Comfort Care Code Status Assessed: Yes Code Status: Full Code Critical Care: Yes Time Spent Managing PTS Care (In Minutes): 45
[2021-01-02 05:43] LABS: Absolute Lymphocytes (CBC) 0.9 K/uL (0.7-4.9); Basophils % 0.1 % (0-1.3); Hematocrit 30.2 % (36.0-45.0); Lymphocytes % 6.4 % (15.3-44.8); MPV 8.4 fL (7.6-11.3); Potassium 3.7 mmol/L (3.5-5.1); RBC Red Blood Cell Count 3.33 M/uL (3.86-4.86)
[2021-01-02 05:47] LABS: Protime INR 1.03
[2021-01-02] MEDS ORDERED: GLUCAGON 1 MG/VIAL IM PRN (06:55)
[2021-01-02] MEDS ORDERED: D50W 25 GM/50 ML SYRINGE IV PRN (06:55)
--- NOTE | 2021-01-02 08:57 | RAD REPORT ---
EXAM DESCRIPTION: - CP - 01/02/2021 7:10 am CLINICAL HISTORY: Syncope and collapse Headache, drowsiness COMPARISON: No comparisons TECHNIQUE: Real-time sonographic evaluation of both carotid systems was performed. Doppler interroga tion was performed with waveform tracing bilaterally. FINDINGS: Normal high resistance waveforms are noted in both external carotid arteries. The common c arotid arteries and internal carotid arteries show normal low resistance waveforms. Small amount of hard plaque is seen in both carotid bulbs. Peak systolic and end diastolic velocity v alues and the ICA/CCA ratios are in the non-hemodynamically significant range. Antegrade flow seen in both vertebral arteries. IMPRESSION: There is mild hard plaquing in both carotid bulbs present. No evidence of a hemodynamically significant stenosis.
--- NOTE | 2021-01-02 10:49 | EKG ---
Test Date: 2021-01-01 Test Time: 14:32:47 Production Team Member: HB MEASUREMENT RESULTS: Intervals: Rate: 112 PA: 118 QRSD: 66 QT: 360 QTc: 491 [place]: P: 60 PA: 118 QRS: 10 T: 67 INTERPRETIVE STATEMENTS: Sinus tachycardia Otherwise normal ECG No previous ECG available for comparison Electronically Signed On 01-02-21 10:46:49 CDT by Xavier Eugene
[2021-01-02 11:32] LABS: Hematocrit 28.6 % (36.0-45.0)
[2021-01-02] MEDS: INSULIN -REGULAR HUMAN 50 UNIT/0.5 ML ML SQ SCH ×2 (12:00→21:55)
[2021-01-02] MEDS ORDERED: NA CHLORIDE 0.9% 1,000 ML ONE ×2 (13:17→23:29)
[2021-01-02] MEDS ORDERED: propofoL 200 MG/20 ML VIAL IV ONE ×2 (14:52→15:01)
[2021-01-02] MEDS ORDERED: LIDOCAINE 1% MPF 5 ML VIAL ONE (15:01)
[2021-01-02] MEDS ORDERED: Phenylephrine HCl 10 MG/ML 1 ML VIAL ONE (15:01)
[2021-01-02] MEDS ORDERED: NS 0.9% VIAL 0 ML ONE (15:01)
--- NOTE | 2021-01-02 15:08 | ENDO RPT ---
[address], [address] EGD PROCEDURE REPORT EXAM DATE: 01/02/2021 PATIENT NAME: Kyler Rushing MR#: [id number] BIRTHDATE: 1945 ATTENDING: Nikolai Han Dr STATUS: inpatient - [facility] BLOWER MECHANIC: Marycruz Woodward RN and Caitie Land INDICATIONS: The patient is a 75 yr old Female here for an EGD due to hematemesis, melenic bleeding, and anemia PROCEDURE PERFORMED: EGD with biopsy MEDICATIONS: Per Anesthesia. TOPICAL ANESTHETIC: none CONSENT: The patient understands the risks and benefits of the procedure and understands that these risks include, but are not limited to: sedation, allergic reaction, infection, perforation and/or bleeding. Alternative means of evaluation and treatment include, among others: physical exam, x-rays, and/or surgical intervention. The patient elects to proceed with this endoscopic procedure. DESCRIPTION OF PROCEDURE: During intra-op preparation period all mechanical medical equipment was checked for proper function. Hand hygiene and appropriate measures for infection prevention was taken. Procedure, possible complications, and alternatives including but not limited to the possibility of bleeding, perforation, tear, infection, sepsis, need for surgery, need for blood transfusion, and anesthesia related complications were explained to the patient. After the risks, benefits and alternatives of the procedure were thoroughly explained, Informed consent was verified, confirmed and timeout was successfully executed by the treatment team. The patient was placed in the left lateral position. The patient was anesthetized with topical anesthesia. Through the anesthetized oropharyngeal area, the scope was passed without any difficulty. The Pentax EG-[id number] ([id number]) endoscope was introduced through the mouth and advanced to the second portion of the duodenum. Retroflexed views revealed a large hiatal hernia. The gastroscope was then slowly withdrawn and removed. LA Class D esophagitis was found in the lower esophagus. A large 2 X 0.8 cm ulcer with crater was found in the lower esophagus. A large hiatal hernia was found (6 cm, DI at 38, GEJ at 32 cm, tip of esophagitis at 29 cm from the gums). Mild atrophic gastritis was found in the antrum. Multiple biopsies were obtained and sent to pathology. ADVERSE EVENTS: There were no complications. IMPRESSIONS: 1. LA class D esophagitis in the lower esophagus 2. 2 X 0.8 cm ulcer with crater in the lower esophagus 3. Large hiatal hernia (6 cm, DI at 38, GEJ at 32 cm, tip of esophagitis at 29 cm from the gums) 4. Mild atrophic gastritis in the antrum, s/p biopsies RECOMMENDATIONS: 1. await biopsy results 2. acid suppression therapy REPEAT EXAM: Nikolai Han Dr eSigned: Nikolai Han Dr 01/02/2021 3:07 PM cc: Ridge Martin D.O. CPT CODES: ICD9 CODES: PATIENT NAME: Kyler Rushing MR#: [id number]
[2021-01-02 15:26] VITALS: O2SAT 99
[2021-01-02] MEDS ORDERED: D50W 25 GM/50 ML VIAL IV PRN (16:00)
--- NOTE | 2021-01-02 16:19 | P.PN ---
Subjective Date of Service: 01/02/21 Chief Complaint: GI bleeding/syncope Subjective: Improving Physical Examination - Vital Signs Temperature: 97.3 F Blood Pressure: 117/65 Pulse: 99 Respirations: 18 Pulse Ox (%): 98 - Studies Laboratory Data (last 24 hrs) 01/01/21 16:22: Sodium 134 L, Potassium 3.9, BUN 23 H, Creatinine 1.17, Glucose 543 H* 01/01/21 16:22: WBC 7.90, Hgb 6.4 L*, Hct 20.1 L* D, Plt Count 181 D 01/01/21 14:34: APTT Cancelled Assessment & Plan Discharge Plan: Home Plan to discharge in: 48 Hours Physician Review Additional Text: Physical exam: Patient alert, cooperative Heart: Regular rate and rhythm Lungs: Clear to auscultation Abdomen: Soft nontender nondistended Extremities: Good range of motion Impression: Syncope with melena secondary to upper GI bleed status post EGD showing LA class D esophagitis with two 0.8 cm ulcers to the lower esophagus and large hiatal h ernia Acute anemia secondary to above Hypothyroidism Diabetes mellitus type 2 CAD Hyperlipidemia Plan: Continue with IV Protonix. GI to start clear liquid diet and advance as tolerated. Will monitor closely. Hemoglobin stable after transfusion. Maintain hemoglobin above 8.0. Continue blood pressure medication. Continue medication for diabetes. All medications reviewed we will restart thyroid medication and cholesterol medication. We will also continue with isosorbide mononitrate. Hold Metformin at this time. Monitor closely. Anticipate improvement over the next 24 hours with possible discharge within the next 48 hours. Will discuss with GI further. Time Spent Managing Pts Care (In Minutes): 55
[2021-01-02] MEDS: SUCRALFATE 1GM/10ML UCUP FT SCH ×2 (16:30→21:00)
[2021-01-02 17:23] LABS: Hematocrit 28.1 % (36.0-45.0)
--- NOTE | 2021-01-02 19:13 | CON ---
Date of Consultation: 01/02/2021 Reason For Consultation: Upper GI bleed with melena and coffee-ground emesis. History Of Present Illness: The patient is a 75-year-old female, who has history of diabetes, hypertension, and hyperlipidemia. The patient presented to hospital with syncope and isaac na with coffee-ground emesis. The patient noticed she was vomiting of coffee-ground emesis today and had a syncopal event, becoming lightheaded and little obtunded, brought to the emergency room for fu rther evaluation, here hemoglobin was 6.4. She had black stool. She got 2 units of packed RBCs. Sh e was placed on Protonix IV drip. Vital signs appeared to be stable as in the ER. Past Medical History: Significant for diabetes, hypertension, hyperlipidemia, thyroid surgery, right shoulder surgery. Medications: At home include Lipitor, Plavix, Nexium, Isordil, levothyroxine, and metformin. Allergies: NKDA, NONE. Social History: She is single. She states she is not , 4 children. No tobacco. No alcohol. Family History: Father of diabetes, hypertension, congestive heart failure. Mother of mu betes, hypertension, congestive heart failure and also had stomach cancer. Review of Systems: The patient has melena and coffee-ground emesis. She denies any abdominal pain, hematemesis, hematoc hezia, hemoptysis, hematuria, dysuria, polyuria, polydipsia, chest pain, shortness of breath, seizure , syncope, lower extremity edema, muscle aches, joint aches, backaches. Does have some slight tigist ia and daughter assisted her while in hospital, it has been reported. Physical Examination: Vital Signs: The patient is 5 feet 3 inches, 220 pounds, BMI 39.0 kg/m2. She has a temperature of 9 8 degrees Fahrenheit, pulse 81, respirations 18, blood pressure 119/70, O2 saturation 98% on room air . HEENT: Normocephalic, atraumatic. Anicteric. Pupils equal, round, and reactive to light. Extraocu lar movements intact. Oropharynx is clear. Neck: Supple. No masses. Respirations: Clear to auscultation bilaterally. Cardiac: Regular rate and rhythm. No gallops or rubs. Gastrointestinal: Positive bowel sounds. Soft, nontender, nondistended. No hepatosplenomegaly. Sh e is obese. Extremities: No clubbing, cyanosis. Some mild lower extremity edema. Neuro: Alert and oriented times 2 to 3. Able to move extremities somewhat fairly recently, but cogn ition is somewhat limited. Laboratory Data: The patient has a hemoglobin of 6.4 on admission with hematocrit of 20.1, MCV of 94 . Now after 2 units, her hemoglobin is up to 10.2 with MCV of 91, platelet count of 190, white count of 14.7, polys of 89% down from 92%. PT of 11.8, INR of 1.03, PTT of 20.2. She has a sodium of 134 , potassium 3.9, chloride 101, bicarb 20, BUN of 23, creatinine of 1.17 down from 1.46 yesterday, glu cose of 543 and yesterday was 624, calcium 7.9, total bilirubin 0.5, direct bilirubin 0.2, AST of 14, ALT of 20, alkaline phosphatase 76, total protein 6.4, albumin 2.8, lipase 82. She has a COVID-19 P CR test that was negative on , yesterday. Imaging: CT abdomen and pelvis revealed gastric distention, moderate hiatal hernia, fluid in the eso phagus indicative of GE reflux, possibly. Impression: 1.Upper GI bleeding with melena, coffee-ground emesis leading to a low hemoglobin of 6.4. May need to investigate with EGD. 2.Abnormal CT scan revealed gastric distention, moderate hiatal hernia, fluid in the esophagus indic ative of reflux. Once again, may need to investigate with EGD. 3.Anemia, hemoglobin of 6.4, MCV of 94. 4.History of diabetes, hypertension, hyperlipidemia, thyroid surgery, right shoulder surgery. Recommendations: 1.Serial H and H, transfuse p.r.n. 2.PPI therapy. 3.IV fluids resuscitation. 4.Urgent EGD. LEANNE/FATEMEHL Voice ID: [id number] Report ID: [id number]
[2021-01-02] MEDS ORDERED: ATORVASTATIN 40 MG TAB PO SCH (21:00)
[2021-01-02] MEDS ORDERED: ATORVASTATIN 20 MG TAB ONE ×2 (21:10→21:44)
[2021-01-02] MEDS ORDERED: SUCRALFATE 1GM/10ML UCUP ONE (21:15)
[2021-01-02] MEDS ORDERED: INSULIN -REGULAR HUMAN 50 UNIT/0.5 ML ML ONE (22:06)
[2021-01-03] MEDS: INSULIN -REGULAR HUMAN 50 UNIT/0.5 ML ML SQ SCH ×3 (02:07→12:00)
[2021-01-03] MEDS: PANTOPRAZOLE INJ 80 MG in NA CHLORIDE 0.9% 250 ML IV SCH ×2 (04:15→07:00)
[2021-01-03] MEDS ORDERED: PANTOPRAZOLE 40 MG INJ ONE (04:24)
[2021-01-03] MEDS ORDERED: NA CHLORIDE 0.9% 250 ML ONE (04:25)
[2021-01-03] MEDS ORDERED: LEVOTHYROXINE SOD 0.1 MG TAB PO SCH (06:30)
[2021-01-03] MEDS: SUCRALFATE 1GM/10ML UCUP FT SCH ×2 (07:30→11:30)
[2021-01-03] MEDS ORDERED: HOME MED 1 EA UNK (Levothyroxine Sodium [Levothyroxine] 200 MCG Capsule) PO SCH (09:00)
[2021-01-03] MEDS ORDERED: ISOSORBIDE MONO SR 30 MG TAB PO SCH (09:00)
[2021-01-03] MEDS: NA CHLORIDE 0.9% 1,000 ML IV SCH ×2 (09:47)
[2021-01-03] MEDS ORDERED: NA CHLORIDE 0.9% 1,000 ML ONE (10:07)
--- NOTE | 2021-01-03 12:08 | ECHO ---
HEIGHT: 5 ft 3 in WEIGHT: 220 lb 0 oz DATE OF STUDY: 01/03/[address]: Uri Saxena MD 2-DIMENSIONAL: YES M.MODE: YES DOPPLER: YES COLOR FLOW: YES TDS: YES PORTABLE: DEFINITY: BUBBLE STUDY: DIAGNOSIS: SYNCOPE AND COLLAPSE CARDIAC HISTORY: CATHERIZATION: YES SURGERY: NO PROSTHETIC VALVE: NO PACEMAKER: NO MEASUREMENTS (cm) DIASTOLIC (NORMALS) SYSTOLIC (NORMALS) IVSd 1.0 (0.6-1.2) LA Diam 3.0 (1.9-4.0) LVEF 64% LVIDd 2.4 (3.5-5.7) LVIDs 1.6 (2.0-3.5) %FS 33% LVPWd 0.9 (0.6-1.2) Ao Diam 2.2 (2.0-3.7) 2 DIMENSIONAL ASSESSMENT: RIGHT ATRIUM: NORMAL LEFT ATRIUM: NORMAL RIGHT VENTRICLE: NORMAL LEFT VENTRICLE: NORMAL TRICUSPID VALVE: NORMAL MITRAL VALVE: NORMAL PULMONIC VALVE: NORMAL AORTIC VALVE: NORMAL PERICARDIAL EFFUSION: NONE AORTIC ROOT: NORMAL LEFT VENTRICULAR WALL MOTION: NORMAL DOPPLER/COLOR FLOW: NORMAL COMMENTS: GROSSLY NORMAL LEFT VENTRICULAR SIZE AND FUNCTION. NO WALL MOTION ABNORMALITY. NO EFFUSION. TECHNOLOGIST: NATACHA HAWKINS
[2021-01-03 12:48] VITALS: TEMP 98.3
--- NOTE | 2021-01-03 12:53 | P.DS ---
Admission Date: 01/01/21 Discharge Date: 01/03/21 Primary Care Provider: Dr. Dunlap Disposition: ROUTINE DISCHARGE Discharge Condition: GOOD Reason for Admission: GI bleeding/syncope Consultations: GI-Dr. Han Procedures: COVID: Negative CT Scan: FINDINGS: The liver, spleen, pancreas, adrenal and right kidney appear unremarkable. Small nonobstructing left renal calculi. The stomach is distended and fluid-filled. Moderate hiatal hernia is present. The visualized esophagus is dilated and fluid-filled. A Prince catheter is present the bladder. There is no evidence of diverticulitis. IMPRESSION: Gastric distention. Moderate hiatal hernia Fluid within a dilated esophagus may indicate GE reflux CT scan: FINDINGS: An intracranial bleed is not seen . The ventricles are normal in caliber. No extra-axial fluid collection is noted. Basal ganglia calcifications without significant change. Mild low-density within periventricular white matter likely ischemic changes secondary to small vessel disease Fluid within the sinuses/ mastoids is not seen. IMPRESSION: No acute intracranial abnormality is seen Carotid Doppler: FINDINGS: Normal high resistance waveforms are noted in both external carotid arteries. The common carotid arteries and internal carotid arteries show normal low resistance waveforms. Small amount of hard plaque is seen in both carotid bulbs. Peak systolic and end diastolic velocity values and the ICA/CCA ratios are in the non-hemodynamically significant range. Antegrade flow seen in both vertebral arteries. IMPRESSION: There is mild hard plaquing in both carotid bulbs present. No evidence of a hemodynamically significant stenosis. EGD: LA class D esophagitis in the lower esophagus 2 x 0.8 cm ulcer with crater in the lower esophagus Large hiatal hernia 6 cm noted Mild atrophic gastritis in the antrum status post biopsy Recommendation await biopsy results, continue acid suppression therapy Medical problem list: Syncope with melena secondary to upper GI bleed status post EGD showing LA class D esophagitis with two 0.8 cm ulcers to the lower esophagus and large hiatal hernia Acute anemia secondary to above Hypothyroidism Diabetes mellitus type 2 CAD Hyperlipidemia Brief History of Present Illness: 75-year-old -[place] female came to the hospital with a syncopal event. Family had noted she has some vomiting with coffee-ground emesis. She started getting lightheaded and became a little obtunded. They brought her into the emergency room for further evaluation. In the emergency room she was found have a hemoglobin of 6.4. Patient will be given 2 units of packed red blood cells. Will start patient on a Protonix drip. GI consultation has been obtained. Keep patient NPO after midnight. Also workup patient's syncopal event. She apparently became obtunded for about 60 seconds. The ER nurses says she did something similar. Patient was admitted for further evaluation and treatment. Hospital Course: Patient presented with syncopal episode with melena. Patient found to be severely anemic. Patient was admitted for further evaluation and treatment. Patient received transfusion of blood with improvement of symptoms. Patient was also seen by GI. GI perform EGD to further evaluate. EGD showed LA class D esophagitis with two 0.8 cm ulcers in the lower esophagus. A large hiatal hernia noted and atrophic gastritis also identified. Biopsies were obtained. GI recommended continue acid suppression. Patient has done well post EGD. Patient able to tolerate her diet. At discharge patient will continue with Protonix 40 mg daily. Note Nexium has been discontinued and replacement of Protonix. Patient will also continue with Carafate 1 p.o. every mealtime. The patient will also continue with multivitamin with iron daily. Recommend to recheck CBC in 1 week to monitor her progress. This can be further monitored and adjusted. Recommend to follow-up with GI in 1 to 2 weeks to follow-up hospitalization and biopsy. Recommend no use of nonsteroidal anti- inflammatories. Education on esophagitis, GERD, and hiatal hernia will be provided. Patient may follow-up with her PCP to further address. Patient will continue with physical therapy and home health at discharge. Fall precautions in place. Patient with history of hypothyroidism. At discharge patient will continue with levothyroxine 200 mcg daily. Patient with diabetes mellitus type 2. This appears stable. At discharge she will continue with metformin 500 mg daily. Recommend to maintain blood sugar less than 140 fasting and less than 200 after meals. Further adjustment can be done by her PCP. Patient with history of CAD and hyperlipidemia. At discharge patient will continue with Lipitor 20 mg daily, Plavix 25 mg daily, and isosorbide mononitrate 30 mg daily. Recommend follow-up with cardiology in 1 to 2 weeks to follow-up his hospitalization. Consider discontinuing Plavix if okay with cardiology in the future. Vital Signs/Physical Exam: Temp Pulse Resp BP Pulse Ox 98.3 F 87 16 115/63 97 01/03/21 11:00 01/03/21 11:00 01/03/21 11:00 01/03/21 11:00 01/03/21 11:00 General: Alert, In no apparent distress, Oriented x3, Cooperative HEENT: Atraumatic Neck: Supple Respiratory: Clear to auscultation bilaterally, Normal air movement Cardiovascular: Regular rate/rhythm Gastrointestinal: Normal bowel sounds, No tenderness, No masses, No rebound, No guarding Musculoskeletal: No tenderness, No warmth Neurological: Normal speech, Normal strength at 5/5 x4 extr, Normal tone, Normal affect Laboratory Data at Discharge: WBC 14.70 K/uL (4.3-10.9) H D 01/02/21 05:01 Hgb 9.1 g/dL (12.0-15.0) L 01/02/21 17:13 Hct 28.1 % (36.0-45.0) L 01/02/21 17:13 Plt Count 190 K/uL (152-406) 01/02/21 05:01 PT 11.8 SECONDS (9.5-12.5) 01/02/21 05:01 INR 1.03 01/02/21 05:01 APTT 20.2 SECONDS (24.3-36.9) L 01/02/21 05:01 Sodium 140 mmol/L (136-145) 01/02/21 05:01 Potassium 3.7 mmol/L (3.5-5.1) 01/02/21 05:01 BUN 26 mg/dL (7-18) H 01/02/21 05:01 Creatinine 1.01 mg/dL (0.55-1.3) 01/02/21 05:01 Glucose 248 mg/dL (74-106) H 01/02/21 05:01 Total Bilirubin 0.5 mg/dL (0.2-1.0) 01/01/21 14:34 AST 14 U/L (15-37) L 01/01/21 14:34 ALT 20 U/L (12-78) 01/01/21 14:34 Alkaline Phosphatase 76 U/L (45-117) 01/01/21 14:34 Lipase 82 U/L (73-393) 01/01/21 14:34 Home Medications: Atorvastatin Calcium [Lipitor*] 40 mg PO BEDTIME 04/25/21 Clopidogrel Bisulfate [Plavix*] 75 mg PO DAILY 01/01/21 Isosorbide Mononitrate [Isosorbide Mononitrate ER] 30 mg PO DAILY 01/01/21 Levothyroxine Sodium [Levothyroxine] 200 mcg PO DAILY 01/01/21 Metformin ER [Glucophage ER*] 500 mg PO DAILY 01/01/21 Multivitamin with Iron [Daily Vitamin + Iron] 1 each PO DAILY #90 tablet 01/03/21 Pantoprazole [Protonix Tab] 40 mg PO DAILY #90 tab 01/03/21 Sucralfate [Carafate -Tab] 1 gm PO ACHS #120 tab 01/03/21 New Medications: Sucralfate [Carafate -Tab] 1 gm PO ACHS #120 tab Multivitamin with Iron [Daily Vitamin + Iron] 1 each PO DAILY #90 tablet Pantoprazole [Protonix Tab] 40 mg PO DAILY #90 tab Physician Discharge Instructions: Patient presented with syncopal episode with melena. Patient found to be severely anemic. Patient was admitted for further evaluation and treatment. Patient received transfusion of blood with improvement of symptoms. Patient was also seen by GI. GI perform EGD to further evaluate. EGD showed LA class D esophagitis with two 0.8 cm ulcers in the lower esophagus. A large hiatal hernia noted and atrophic gastritis also identified. Biopsies were obtained. GI recommended continue acid suppression. Patient has done well post EGD. Patient able to tolerate her diet. At discharge patient will continue with Protonix 40 mg daily. Note Nexium has been discontinued and replacement of Protonix. Patient will also continue with Carafate 1 p.o. every mealtime. The patient will also continue with multivitamin with iron daily. Recommend to recheck CBC in 1 week to monitor her progress. This can be further monitored and adjusted. Recommend to follow-up with GI in 1 to 2 weeks to follow-up hospitalization and biopsy. Recommend no use of nonsteroidal anti- inflammatories. Education on esophagitis, GERD, and hiatal hernia will be provided. Patient may follow-up with her PCP to further address. Patient will continue with physical therapy and home health at discharge. Fall precautions in place. Patient with history of hypothyroidism. At discharge patient will continue with levothyroxine 200 mcg daily. Patient with diabetes mellitus type 2. This appears stable. At discharge she will continue with metformin 500 mg daily. Recommend to maintain blood sugar less than 140 fasting and less than 200 after meals. Further adjustment can be done by her PCP. Patient with history of CAD and hyperlipidemia. At discharge patient will continue with Lipitor 20 mg daily, Plavix 25 mg daily, and isosorbide mononitrate 30 mg daily. Recommend follow-up with cardiology in 1 to 2 weeks to follow-up his hospitalization. Consider discontinuing Plavix if okay with cardiology in the future. Diet: AHA Activity: Ad bernard Followup: SHRUTHI HAWKINS [Primary Care Provider] - Time spent managing pt's care (in minutes): 55
[2021-01-03] MEDS ORDERED: INSULIN -REGULAR HUMAN 50 UNIT/0.5 ML ML ONE (13:02)
[2021-01-03 14:19] VITALS: BP 112/68
--- NOTE | 2021-01-06 14:16 | EEG ---
CHART: [id number] TEST ID#: [id number] DATE OF STUDY: 01/02/2021 THE EEG WAS RECORDED PORTABLE IN THE EMERGENCT ROOM ON A 17 CHANNEL MACHINE. ELECTRODES WERE APPLIED IN THE USUAL MANNER USING THE INTERNATIONAL 10-20 SYSTEM. THE WAKING BACKGROUND RHYTHM IN THIS RECORD CONSISTS OF FAIRLY WELL DEVELOPED AND FAIRLY WELL ORGANIZED WAVES OF 7 HZ., IN A WIDE DISTRIBUTION WHICH ATTENUATE NORMALLY WITH EYE OPENING. LOW-VOLTAGE 15-18 HZ ACTIVITY IS EXPRESSED IN THE FRONTAL REGIONS. THERE ARE NO FOCAL OR LATERALIZING FEATURES. NO EPILEPTIFORM ACTIVITY APPEARS. SLEEP OCCURRED NATURALLY. HYPERVENTILATION WAS NOT PERFORMED. PHOTIC STIMULATION PRODUCED NO DRIVING BILATERALLY. IMPRESSION: THIS IS A MILDLY ABNORMAL EEG DUE TO A MILDLY SLOW BACKGROUND. THIS IS A NON-SPECIFIC FINDING INDICATING THE PRESENCE OF A MILD DIFFUSE DISTURBANCEIN CEREBRAL FUNCTION.
== END 2021-01-03 15:26 | disposition home health service (06) | DRG 381 ==
LOC: ER 14:09 → ERHOLD 17:38
PROVIDERS: ADMIT Hospitalist; ATTEND Family Medicine
PROC: 30233N1 Transfusion of Nonautologous Red Blood Cells into Peripheral Vein, Percutaneous Approach (ICD-10-PCS; 2021-01-01)
PROC: 0DB78ZX Excision of Stomach, Pylorus, Via Natural or Artificial Opening Endoscopic, Diagnostic (ICD-10-PCS; principal; 2021-01-02 15:00)
DX: K22.11 Ulcer of esophagus with bleeding (principal); D62 Acute posthemorrhagic anemia; K29.41 Chronic atrophic gastritis with bleeding; K44.9 Diaphragmatic hernia without obstruction or gangrene; E03.9 Hypothyroidism, unspecified; I25.10 Atherosclerotic heart disease of native coronary artery without angina pectoris; E78.5 Hyperlipidemia, unspecified; I10 Essential (primary) hypertension; E11.9 Type 2 diabetes mellitus without complications; Z86.73 Personal history of transient ischemic attack (TIA), and cerebral infarction without residual deficits; Z79.84 Long term (current) use of oral hypoglycemic drugs; Z79.890 Hormone replacement therapy; Z79.02 Long term (current) use of antithrombotics/antiplatelets; Z79.899 Other long term (current) drug therapy; Z20.822 Contact with and (suspected) exposure to COVID-19
CPT/HCPCS: 36415; 51702; 70450; 71045; 74177; 80048; 80076; 82565; 82947; 83690; 85014; 85018; 85025; 85610; 85730; 86850; 86900; 86901; 88305; 88312; 93005; 93306; 93880; 95816; 96372; 99285; C9113; J1200; J1720; J1815; J2370; J2704; J7030; J7050; P9016; Q9967; U0003

== ENCOUNTER 2021-01-05 14:20 | Emergency (ER) | payer MEDICARE ==
--- OUTSIDE RECORDS SUMMARY | 2021-01-05 14:25 | XMS REPORT | Continuity of Care Document ---
:1945 Author Organization [facility] t Address [address] [place] [address] Care Team Providers Name Role Phone Erica [facility] Primary Care Physician Brigido [facility]IU Attending Clinician Payers Payer Name Policy Type Policy Effective Date Expiration Date Sour ce Number [facility] [id number] 2020 [place] MEDICARE(WELLME 00:00:00 Eveline Juarez) [facility] MEDICARE ADVANTAGE [id number] 09/2019-Present MO Problems Condition Condition Condition Status [...] Date Stop Date Source Natural mother Hypertension [place] [facility] Natural mother Heart disease [place] [facility] Natural father Diabetes [facility] Natural father Heart disease [place] [facility] Natural father Hypertension [place] [facility] Social History Social Habit Start Date Stop Date Quantity Comments [facility] St[facility] Dr[facility] Alcohol Binge Tobacco use and 2020-04-27 2020-04-27 Never used [place] [facility] exposure 00:00:00 00:00:00 Alcohol intake 2020-04-27 2020-04-27 Lifetime [place] [facility] 00:00:00 00:00:00 non-drinker (finding) History [facility] 2020-04-27 2020-04-27 1 [place] [facility] Alcohol Frequency 00:00:00 00:00:00 [birth year] [place] [facility] 00:00:00 00:00:00 Smoking Status Start Date Stop Date Source Former Smoker [facility] Never smoker [place] [facility] Medications Ordered Filled Start Stop [...] Source Name Name influenza, influenza, 2020-06-17 Completed [facility] injectable, injectable, 00:00:00 [facility] p quadrivalent quadrivalent influenza, high dose influenza, high 2019-07-15 Completed [facility] seasonal dose seasonal 16:23:03 Medical Bon up Vital Signs Vital Name Observation Time Observation Value Comments Source BP Diastolic 2020-11-21 00:00:00 87 mm[Hg] [facility] Height 2020-11-21 00:00:00 62 [in_i] [facility] BMI (Body Mass 2020-11-21 00:00:00 38.8 kg/m2 [facility] Group BP Systolic 2020-11-21 00:00:00 158 mm[Hg] [facility] Body Weight 2020-11-21 00:00:00 3393 [oz_av] [facility] BP Diastolic 2020-07-11 00:00:00 95 mm[Hg] [facility] Height 2020-07-11 00:00:00 62 [in_i] [facility] BMI (Body Mass 2020-07-11 00:00:00 37.7 kg/m2 [facility]) Group BP Systolic 2020-07-11 00:00:00 151 mm[Hg] [facility] Body Weight 2020-07-11 00:00:00 3297 [oz_av] [facility] Height 2020-05-10 00:00:00 62 [in_i] [facility] BMI (Body Mass 2020-05-10 00:00:00 37.9 kg/m2 [facility] Group Body Weight 2020-05-10 00:00:00 3312 [oz_av] [facility] BP Diastolic 2020-04-11 00:00:00 87 mm[Hg] [facility] Height 2020-04-11 00:00:00 62 [in_i] [facility] BMI (Body Mass 2020-04-11 00:00:00 37.9 kg/m2 [facility] Group BP Systolic 2020-04-11 00:00:00 [...] BMI (Body Mass 2020-02-08 00:00:00 41.4 kg/m2 [facility] BP Systolic 2020-02-08 00:00:00 151 mm[Hg] [facility] Body Weight 2020-02-08 00:00:00 3621 [oz_av] [facility] BP Diastolic 2020-01-12 00:00:00 71 mm[Hg] [facility] Height 2020-01-12 00:00:00 62 [in_i] [facility] BMI (Body Mass 2020-01-12 00:00:00 40.6 kg/m2 [facility] BP Systolic 2020-01-12 00:00:00 128 mm[Hg] [facility] Body Weight 2020-01-12 00:00:00 222.1 [lb_av] [facility] BP Diastolic 2019-11-04 00:00:00 76 mm[Hg] [facility] Height 2019-11-04 00:00:00 62 [in_i] [facility] BMI (Body Mass 2019-11-04 00:00:00 41.9 kg/m2 [facility] Group BP Systolic 2019-11-04 00:00:00 125 mm[Hg] [facility] Body Weight 2019-11-04 00:00:00 3664 [oz_av] [facility] BP Diastolic 2019-08-17 00:00:00 94 mm[Hg] [facility] Height 2019-08-17 00:00:00 62 [in_i] [facility] BMI (Body Mass 2019-08-17 00:00:00 42.4 kg/m2 [facility] BP Systolic 2019-08-17 00:00:00 162 mm[Hg] [facility] Body Weight 2019-08-17 00:00:00 3712 [oz_av] [facility] BP Diastolic 2019-07-15 00:00:00 93 mm[Hg] [facility] Height 2019-07-15 00:00:00 62 [in_i] [facility] BMI (Body Mass 2019-07-15 00:00:00 43.2 kg/m2 [facility] BP Systolic 2019-07-15 00:00:00 167 mm[Hg] [facility] Body Weight 2019-07-15 00:00:00 3780 [oz_av] [facility] BP Diastolic 2019-07-02 00:00:00 86 mm[Hg] [facility] Height 2019-07-02 00:00:00 62 [in_i] [facility] BMI (Body Mass 2019-07-02 00:00:00 43.5 kg/m2 [facility] Group BP Systolic 2019-07-02 00:00:00 144 mm[Hg] [facility] Body Weight 2019-07-02 00:00:00 3808 [oz_av] [facility] BP Diastolic 2019-06-08 00:00:00 86 mm[Hg] [facility] Height 2019-06-08 00:00:00 62 [in_i] [facility] BMI (Body Mass 2019-06-08 00:00:00 42.1 kg/m2 [facility] BP Systolic 2019-06-08 00:00:00 144 mm[Hg] [facility] Body Weight 2019-06-08 00:00:00 3680 [oz_av] [facility] BP Diastolic 2019-06-02 00:00:00 91 mm[Hg] [facility] Height 2019-06-02 00:00:00 62 [in_i] [facility] BMI (Body Mass 2019-06-02 00:00:00 41.9 kg/m2 [facility] BP Systolic 2019-06-02 00:00:00 145 mm[Hg] [facility] Body Weight 2019-06-02 00:00:00 3665 [oz_av] [facility] BP Diastolic 2019-04-14 00:00:00 76 mm[Hg] [facility] Height 2019-04-14 00:00:00 62 [in_i] [facility] BMI (Body Mass 2019-04-14 00:00:00 43 kg/m2 [facility] BP Systolic 2019-04-14 00:00:00 134 mm[Hg] [facility] Body Weight 2019-04-14 00:00:00 3760 [oz_av] [facility] BP Diastolic 2019-02-03 00:00:00 80 mm[Hg] [facility] Height 2019-02-03 00:00:00 62 [in_i] [facility] BMI (Body Mass 2019-02-03 00:00:00 43.3 kg/m2 [facility] BP Systolic 2019-02-03 00:00:00 143 mm[Hg] [facility] Body Weight 2019-02-03 00:00:00 236.9 [lb_av] [facility] Height 2018-10-30 00:00:00 62 [in_i] [facility] BMI (Body Mass 2018-10-30 00:00:00 44.8 kg/m2 [facility] BP Systolic 2018-10-30 00:00:00 152 mm[Hg] [facility] Body Weight 2018-10-30 00:00:00 3923 [oz_av] [facility] Systolic blood 2020-04-27 08:59:00 140 mm[Hg] [place] [facility] pressure Diastolic blood 2020-04-27 08:59:00 74 mm[Hg] [place] [facility] pressure Heart rate 2020-04-27 08:59:00 60 /min [place] [facility] Body temperature 2020-04-27 08:59:00 35.94 [place] [facility] Body weight 2020-04-27 08:59:00 93.441 kg [place] [facility] Procedures Procedure Date / Time Performing Source Performed Clinician unlisted imaging order 2020-03-31[facility] 00:[facility] XR, ribs, bilateral 2020-03-31 [facility] 00:[facility] MRI, brain, w/o contrast 2019-07-02 [facility] 00[facility] US, duplex, carotid artery 2019-07-02 [facility] 00:[facility] US, echocardiogram, transthoracic, 2019-07-02 [facility] complete, w/ color flow 00:00:00 Medical Group holter monitor 2019-07-02 [facility] 00:00:00 [facility] Group holter monitor 2019-06-29 [facility] 00:00:00 [facility] MAMMO, screening, digital, 2019-06-02 [facility] [place] bilateral 00:00:00 [facility] Group MAMMO, screening, digital, 2019-04-14 [place] bilateral 00:00:00 Medical Group Thyroid Surgery 1979-09-09 [facility] 00:00:00 [facility] Group Hysterectomy [facility] Shoulder Joint Surgery [facility] Appendectomy [facility] Eye Surgery Procedure [facility] Esophagogastroduodenoscopy (Surg) [facility] Plan of Care Planned Activity Planned Date Details Comments Source Future Scheduled 2021-04-09 INFLUENZA VACCINE [place] [facility] Test 00:00:00 [code = INFLUENZA VACCINE] Diagnostic Test 2020-11-21 hemoglobin A1c, QN, [facility] Pending 00:00:00 blood [code = Group hemoglobin A1c, QN, blood] Diagnostic Test 2020-11-21 CMP, serum or plasma [facility] Pending 00:00:00 [code = CMP, serum or Group plasma] Diagnostic Test 2020-11-21 lipid panel, serum [facility] glass calibrator Medical Pending 00:00:00 [code = lipid panel, Group serum] Future Scheduled 2011 65+ PNEUMOCOCCAL [place] [facility] Test 00:00:00 VACCINE (1 of 1 - PPSV23) [code = 65+ PNEUMOCOCCAL VACCINE (1 of 1 - PPSV23)] Future Scheduled 1996 BREAST CANCER [facility]ist Test 00:00:00 SCREENING [code = BREAST CANCER SCREENING] Future Scheduled 1996 [facility] Test 00:00:00 [code = COLONOSCOPY SCREENING] Future Scheduled 1996 SHINGLES VACCINES [place] [facility] Test 00:00:00 (#1) [code = SHINGLES VACCINES (#1)] Future Scheduled 1964 Hepatitis C screening [place] [facility] Test 00:00:00 (procedure) [code = 247618161] Future Scheduled 1962 COVID-19 VACCINE (1) [facility] Test 00:00:00 [code = COVID-19 VACCINE (1)] Encounters Start End Encounter Admission Attending Care Care Encounter Source Date/Time Date/Time Type Type Clinicians Facility Department ID 2020-11-21 2020-11-21 George ROBLES [place] - [id number] [facility] 00:00:00 00:00:00 Carlos A Contreras, Medical Medical MD: [address] [facility] [address], [place] [address] , Ph. 2020-07-11 2020-07-11 George MMG [place] - [id number] [facility] 00:00:00 00:00:00 Dallas Borrego Medical MD: [address] [place] [address] [address], [place] [address] , Ph. 2020-05-10 2020-05-10 George MMG [place] - [id number] [facility] 00:00:00 00:00:00 Dallas Borrego Medical MD: [address] [place] [address], [place] [phone] , Ph. 2020-04-27 2020-04-27 Outpatient [facility] 137 [id number] [place] 00:00:00 00:00:[address] 2020-04-11 2020-04-11 George MMG [place] - [id number] [facility] 00:00:00 00:00:00 Dallas Borrego MD: [address] [place] [address], [place] [address] , Ph. 2020-03-31 2020-03-31 Vanessa MMG [place] - [id number] [facility] 00:00:00 00:00:00 Discovery onofre Chandra NP: [address] [place] [address] , Ph. 2020-02-08 2020-02-08 George MMG [place] - [id number] [facility] 00:00:00 00:00:00 Dallas Borrego MD: [address] [place] [address], [place] [address] , Ph. 2020-01-12 2020-01-12 Fede CISSEG [place] - [id number] [facility] 00:00:00 00:00:00 Alexandru Sanchez MD: Medical Medica l [address] [facility] [address], [place] [address] , Ph. [phone] 2020-01-11 2020-01-11 Mary Ann CISSE [place] [facility] [id number] [facility]00 Merly Toscano Medical Medical MANAGER DELI: [address] [place] [address] [address], [place] [address] , Ph. 2020-01-04 2020-01-04 George [facility] [place] - [id number] [facility] 00:00:00 00:00:00 Dallas Borrego Medical MD: [address] [place] [address] [address], [place] [address] , Ph. 2019-11-04 2019-11-04 George CISSE [place] - [id number] [facility] 00:00:00 00:00:00 Dallas Borrego MD: [address] [place] [address] [address], [place] [address] , Ph. 2019-08-17 2019-08-17 George CISSE [place] - [id number] [facility] 00:00:00 00:00:00 Dallas Borrego MD: [address] [place] [address] [address], [place] [address] , Ph. 2019-07-15 2019-07-15 George CISSE [place] - [id number] [facility] 00:00:00 00:00:00 Dallas Borrego MD: [address] [place] [address] [address], [place] [address] , Ph. 2019-07-02 2019-07-02 George CISSE [place] - [id number] [facility] 00:00:00 00:00:00 Dallas Borrego MD: [address] [place] [address] [address], [place] [address] , Ph. 2019-06-08 2019-06-08 George [facility] [place] - [id number] [facility] 00:00:00 00:00:00 Dallas Borrego MD: [address] [facility] [address], [place] [address] , Ph. 2019-06-02 2019-06-02 George [facility] [place] - [id number] [facility] 00:00:00 00:00:00 Dallas Borrego MD: [address] [place] [address] [address], [place] [address] , Ph. 2019-04-14 2019-04-14 George [facility] [place] - [id number] [facility] 00:00:00 00:00:00 Dallas Borrego MD: [address] [place] [address] [address], [place] [address] , Ph. 2019-04-08 2019-04-08 George [facility] [place] - [id number] [facility] 00:00:00 00:00:00 Dallas Borrego MD: [address] [place] [address] [address], [place] [address] , Ph. 2019-02-03 2019-02-03 Randell [facility] [place] - [id number] M atagor 00:00:00 00:00:00 Discovery onofre Blum MD: [address] [place] [address] [address], [place] [address] , Ph. 2018-10-30 2018-10-30 George [facility] [place] - [id number] [place] 00:00:00 00:00:00 Dallas Borrego MD: [address] [place] [address] [address], [place] [address] , Ph. Results Test Description Test Time [...] L MCV [Entitic volume] (test code = 98173-1) 96.2 fL 86-100 mean corpuscular hemoglobin (test [...] Blood (test code = 76.8 % 44.4-80.1 95319-5) Immature granulocytes [#/volume] in Blood (test code = 0.0 K/uL 0.0-0.03 93743-5) lymphocyte% (test code = lymphocyte%) 15.9 % 10.0-50.0 mono % (test code = mono %) 6.0 % 3.6-12.0 eos % (test code = eos %) 0.8 % 0.0-5.4 Basophils/100 leukocytes in Unspecified specimen (test code 0.1 % 0.1-1.2 = 85679-0) Band form neutrophils [#/volume] in Blood (test code = 5.73 K/uL 1.56-6.13 33563-5) Lymphocytes [#/volume] in Unspecified specimen by Automated 1.2 K/u L 1.18-3.74 count (test code = 20420-8) mono # (test code = mono #) 0.45 K/uL 0.24-0.86 eos # (test code = eos #) 0.06 K/uL 0.04-0.36 basophil # (test code = basophil #) 0.01 K/uL 0.01-0.08 NRBC% (test code = NRBC%) 1 /100 WBC 0-0.2 H NRBC# (test code = NRBC#) 0 K/uL [facility] metabolic 2000 panel - Serum or [id number] 03:00:00 Test Item Value Reference Range Interpretation [...] = 7.8 mg/dL 8.8-10.2 L calcium level) [facility] W Auto Differential panel - [id number] 03:00:00 Test Item Value Reference Range Interpretation Comments white blood count (test code = 7.5 K/uL 4.0-11.5 white blood count) red blood count (test code = red 2.90 M/uL 3.80-5.20 L blood count) hemoglobin (test code = 8.9 g/dL 10.5-15.7 L hemoglobin) hematocrit (test code = 27.9 % 34.0-50.0 L hematocrit) MCV [Entitic volume] (test code = 96.2 fL 86-100 65074-2) mean corpuscular hemoglobin (test 30.7 pg 26.2-33.4 [...] 44.4-80.1 leukocytes in Blood (test code = 04782-1) Immature granulocytes [#/volume] 0.0 K/uL 0.0-0.03 in Blood (test code = 20465-8) lymphocyte% (test code = 15.9 % 10.0-50.0 lymphocyte%) mono % (test code = mono %) 6.0 % 3.6-12.0 eos % (test code = eos %) 0.8 % 0.0-5.4 Basophils/100 leukocytes in 0.1 % 0.1-1.2 Unspecified specimen (test code = 98201-3) Band form neutrophils [#/volume] 5.73 K/uL 1.56-6.13 in Blood (test code = 13723-5) Lymphocytes [#/volume] in 1.2 K/uL 1.18-3.74 Unspecified specimen by Automated count (test code = 02713-5) mono # (test code = mono #) 0.45 K/uL 0.24-0.86 eos # (test code = eos #) 0.06 K/uL 0.04-0.36 basophil # (test code = basophil 0.01 K/uL 0.01-0.08 #) NRBC% (test code = NRBC%) 1 /100 WBC 0-0.2 H NRBC# (test code = NRBC#) 0 K/uL [facility] metabolic 2000 panel - Serum or [id number] 03:00:00 Test Item Value Reference Range Interpretation [...] = 7.8 mg/dL 8.8-10.2 L calcium level) [facility] W Auto Differential panel - [id number] 03:00:00 Test Item Value Reference Range Interpretation Comments white blood count (test code = 7.5 K/uL 4.0-11.5 white blood count) red blood count (test code = red 2.90 M/uL 3.80-5.20 L blood count) hemoglobin (test code = 8.9 g/dL 10.5-15.7 L hemoglobin) hematocrit (test code = 27.9 % 34.0-50.0 L hematocrit) MCV [Entitic volume] (test code = 96.2 fL 86-100 27163-7) mean corpuscular hemoglobin (test 30.7 pg 26.2-33.4 [...] 44.4-80.1 leukocytes in Blood (test code = 98129-0) Immature granulocytes [#/volume] 0.0 K/uL 0.0-0.03 in Blood (test code = 45487-0) lymphocyte% (test code = 15.9 % 10.0-50.0 lymphocyte%) mono % (test code = mono %) 6.0 % 3.6-12.0 eos % (test code = eos %) 0.8 % 0.0-5.4 Basophils/100 leukocytes in 0.1 % 0.1-1.2 Unspecified specimen (test code = 20775-7) Band form neutrophils [#/volume] 5.73 K/uL 1.56-6.13 in Blood (test code = 16911-2) Lymphocytes [#/volume] in 1.2 K/uL 1.18-3.74 Unspecified specimen by Automated count (test code = 98938-8) mono # (test code = mono #) 0.45 K/uL 0.24-0.86 eos # (test code = eos #) 0.06 K/uL 0.04-0.36 basophil # (test code = basophil 0.01 K/uL 0.01-0.08 #) NRBC% (test code = NRBC%) 1 /100 WBC 0-0.2 H NRBC# (test code = NRBC#) 0 K/uL [facility] metabolic 2000 panel - Serum or [id number] 03:00:00 Test Item Value Reference Range Interpretation [...] = 7.8 mg/dL 8.8-10.2 L calcium level) [facility] W Auto Differential panel - [id number] 12:59:00 Test Item Value Reference Range Interpretation Comments white blood count (test code = 8.7 K/uL 4.0-11.5 white blood count) red blood count (test code = red 3.00 M/uL 3.80-5.20 L blood count) hemoglobin (test code = 9.1 g/dL 10.5-15.7 L hemoglobin) hematocrit (test code = 28.4 % 34.0-50.0 L hematocrit) MCV [Entitic volume] (test code = 94.7 fL 86-100 93012-7) mean corpuscular hemoglobin (test 30.3 pg 26.2-33.4 [...] 44.4-80.1 leukocytes in Blood (test code = 81553-9) Immature granulocytes [#/volume] 0.0 K/uL 0.0-0.03 H in Blood (test code = 56998-8) lymphocyte% (test code = 12.6 % 10.0-50.0 lymphocyte%) mono % (test code = mono %) 6.0 % 3.6-12.0 eos % (test code = eos %) 0.6 % 0.0-5.4 Basophils/100 leukocytes in 0.2 % 0.1-1.2 Unspecified specimen (test code = 78746-1) Band form neutrophils [#/volume] 6.95 K/uL 1.56-6.13 H in Blood (test code = 90023-1) Lymphocytes [#/volume] in 1.1 K/uL 1.18-3.74 L Unspecified specimen by Automated count (test code = 90681-9) mono # (test code = mono #) 0.52 K/uL 0.24-0.86 eos # (test code = eos #) 0.05 K/uL 0.04-0.36 basophil # (test code = basophil 0.02 K/uL 0.01-0.08 #) NRBC% (test code = NRBC%) 1 /100 WBC 0-0.2 H NRBC# (test code = NRBC#) 0 K/uL [facility] metabolic 2000 panel - Serum or [id number] 12:59:00 Test Item Value Reference Range Interpretation [...] = 7.8 mg/dL 8.8-10.2 L calcium level) [facility] W Auto Differential panel - [id number] 12:59:00 Test Item Value Reference Range Interpretation Comments white blood count (test code = 8.7 K/uL 4.0-11.5 white blood count) red blood count (test code = red 3.00 M/uL 3.80-5.20 L blood count) hemoglobin (test code = 9.1 g/dL 10.5-15.7 L hemoglobin) hematocrit (test code = 28.4 % 34.0-50.0 L hematocrit) MCV [Entitic volume] (test code = 94.7 fL 86-100 16052-5) mean corpuscular hemoglobin (test 30.3 pg 26.2-33.4 [...] 44.4-80.1 leukocytes in Blood (test code = 56581-4) Immature granulocytes [#/volume] 0.0 K/uL 0.0-0.03 H in Blood (test code = 06407-9) lymphocyte% (test code = 12.6 % 10.0-50.0 lymphocyte%) mono % (test code = mono %) 6.0 % 3.6-12.0 eos % (test code = eos %) 0.6 % 0.0-5.4 Basophils/100 leukocytes in 0.2 % 0.1-1.2 Unspecified specimen (test code = 50005-6) Band form neutrophils [#/volume] 6.95 K/uL 1.56-6.13 H in Blood (test code = 36356-2) Lymphocytes [#/volume] in 1.1 K/uL 1.18-3.74 L Unspecified specimen by Automated count (test code = 59093-2) mono # (test code = mono #) 0.52 K/uL 0.24-0.86 eos # (test code = eos #) 0.05 K/uL 0.04-0.36 basophil # (test code = basophil 0.02 K/uL 0.01-0.08 #) NRBC% (test code = NRBC%) 1 /100 WBC 0-0.2 H NRBC# (test code = NRBC#) 0 K/uL [facility] metabolic 2000 panel - Serum or [id number] 12:59:00 Test Item Value Reference Range Interpretation [...] = 7.8 mg/dL 8.8-10.2 L calcium level) [facility] W Auto Differential panel - [id number] 12:59:00 Test Item Value Reference Range Interpretation Comments white blood count (test code = 8.7 K/uL 4.0-11.5 white blood count) red blood count (test code = red 3.00 M/uL 3.80-5.20 L blood count) hemoglobin (test code = 9.1 g/dL 10.5-15.7 L hemoglobin) hematocrit (test code = 28.4 % 34.0-50.0 L hematocrit) MCV [Entitic volume] (test code = 94.7 fL 86-100 67996-3) mean corpuscular hemoglobin (test 30.3 pg 26.2-33.4 [...] 44.4-80.1 leukocytes in Blood (test code = 74541-3) Immature granulocytes [#/volume] 0.0 K/uL 0.0-0.03 H in Blood (test code = 35947-2) lymphocyte% (test code = 12.6 % 10.0-50.0 lymphocyte%) mono % (test code = mono %) 6.0 % 3.6-12.0 eos % (test code = eos %) 0.6 % 0.0-5.4 Basophils/100 leukocytes in 0.2 % 0.1-1.2 Unspecified specimen (test code = 25661-1) Band form neutrophils [#/volume] 6.95 K/uL 1.56-6.13 H in Blood (test code = 82033-5) Lymphocytes [#/volume] in 1.1 K/uL 1.18-3.74 L Unspecified specimen by Automated count (test code = 27468-8) mono # (test code = mono #) 0.52 K/uL 0.24-0.86 eos # (test code = eos #) 0.05 K/uL 0.04-0.36 basophil # (test code = basophil 0.02 K/uL 0.01-0.08 #) NRBC% (test code = NRBC%) 1 /100 WBC 0-0.2 H NRBC# (test code = NRBC#) 0 K/uL [facility] metabolic 2000 panel - Serum or [id number] 12:59:00 Test Item Value Reference Range Interpretation [...] = 7.8 mg/dL 8.8-10.2 L calcium level) [facility] [id number] 10:15:00 Test Item Value Reference Range Interpretation Comments hemoglobin (test code = hemoglobin) 9.4 g/dL 10.5-15.7 hematocrit (test code = hematocrit) 29.4 % 34.0-50.0 [facility] - [id number] 10:15:00 Test Item Value Reference Range Interpretation Comments hemoglobin (test code = hemoglobin) 9.4 g/dL 10.5-15.7 hematocrit (test code = hematocrit) 29.4 % 34.0-50.0 [facility] - [id number] 10:15:00 Test Item Value Reference Range Interpretation Comments hemoglobin (test code = hemoglobin) 9.4 g/dL 10.5-15.7 hematocrit (test code = hematocrit) 29.4 % 34.0-50.0 [facility] - [id number] 01:45:00 Test Item Value Reference Range Interpretation Comments white blood count (test code = 8.4 K/uL 4.0-11.5 white blood count) red blood count (test code = red 2.27 M/uL 3.80-5.20 L blood count) hemoglobin (test code = 7.0 g/dL 10.5-15.7 L hemoglobin) hematocrit (test code = 21.8 % 34.0-50.0 L hematocrit) MCV [Entitic volume] (test code = 96.0 fL 86-100 92078-8) mean corpuscular hemoglobin (test 30.8 pg 26.2-33.4 [...] 44.4-80.1 leukocytes in Blood (test code = 68115-1) Immature granulocytes [#/volume] 0.0 K/uL 0.0-0.03 H in Blood (test code = 85372-3) lymphocyte% (test code = 14.9 % 10.0-50.0 lymphocyte%) mono % (test code = mono %) 5.5 % 3.6-12.0 eos % (test code = eos %) 0.7 % 0.0-5.4 Basophils/100 leukocytes in 0.1 % 0.1-1.2 Unspecified specimen (test code = 33650-2) Band form neutrophils [#/volume] 6.55 K/uL 1.56-6.13 H in Blood (test code = 81667-7) Lymphocytes [#/volume] in 1.3 K/uL 1.18-3.74 Unspecified specimen by Automated count (test code = 07443-7) mono # (test code = mono #) 0.46 K/uL 0.24-0.86 eos # (test code = eos #) 0.06 K/uL 0.04-0.36 basophil # (test code = basophil 0.01 K/uL 0.01-0.08 #) NRBC% (test code = NRBC%) 3 /100 WBC 0-0.2 H NRBC# (test code = NRBC#) 0 K[facility], [facility] unspecified - [id number] 01:45:00NeutrophilsBandLymphocyteMonocyteEosinophilPlatelet EstimateThe [facility] 2000 panel - Serum or [id number] 01:45:00 Test Item Value Reference Range Interpretation [...] = 7.9 mg/dL 8.8-10.2 L calcium level) [facility] W Auto Differential panel - [id number] 01:45:00 Test Item Value Reference Range Interpretation Comments white blood count (test code = 8.4 K/uL 4.0-11.5 white blood count) red blood count (test code = red 2.27 M/uL 3.80-5.20 L blood count) hemoglobin (test code = 7.0 g/dL 10.5-15.7 L hemoglobin) hematocrit (test code = 21.8 % 34.0-50.0 L hematocrit) MCV [Entitic volume] (test code = 96.0 fL 86-100 14956-1) mean corpuscular hemoglobin (test 30.8 pg 26.2-33.4 [...] 44.4-80.1 leukocytes in Blood (test code = 37885-4) Immature granulocytes [#/volume] 0.0 K/uL 0.0-0.03 H in Blood (test code = 27416-1) lymphocyte% (test code = 14.9 % 10.0-50.0 lymphocyte%) mono % (test code = mono %) 5.5 % 3.6-12.0 eos % (test code = eos %) 0.7 % 0.0-5.4 Basophils/100 leukocytes in 0.1 % 0.1-1.2 Unspecified specimen (test code = 19559-3) Band form neutrophils [#/volume] 6.55 K/uL 1.56-6.13 H in Blood (test code = 53854-3) Lymphocytes [#/volume] in 1.3 K/uL 1.18-3.74 Unspecified specimen by Automated count (test code = 50834-9) mono # (test code = mono #) 0.46 K/uL 0.24-0.86 eos # (test code = eos #) 0.06 K/uL 0.04-0.36 basophil # (test code = basophil 0.01 K/uL 0.01-0.08 #) NRBC% (test code = NRBC%) 3 /100 WBC 0-0.2 H NRBC# (test code = NRBC#) 0 K/[facility]L [facility], method unspecified - [id number] 01:45:00NeutrophilsBandLymphocyteMonocyteEosinophilPlatelet EstimateMataBeacham Memorial HospitalBasic metabolic 2000 panel - Serum or Ihsugo5045-51-94 01:45:00 Test Item Value Reference Range Interpretation [...] = 7.9 mg/dL 8.8-10.2 L calcium level) [facility] W Auto Differential panel - [id number] 01:45:00 Test Item Value Reference Range Interpretation Comments white blood count (test code = 8.4 K/uL 4.0-11.5 white blood count) red blood count (test code = red 2.27 M/uL 3.80-5.20 L blood count) hemoglobin (test code = 7.0 g/dL 10.5-15.7 L hemoglobin) hematocrit (test code = 21.8 % 34.0-50.0 L hematocrit) MCV [Entitic volume] (test code = 96.0 fL 86-100 43591-1) mean corpuscular hemoglobin (test 30.8 pg 26.2-33.4 [...] 44.4-80.1 leukocytes in Blood (test code = 17735-1) Immature granulocytes [#/volume] 0.0 K/uL 0.0-0.03 H in Blood (test code = 59544-9) lymphocyte% (test code = 14.9 % 10.0-50.0 lymphocyte%) mono % (test code = mono %) 5.5 % 3.6-12.0 eos % (test code = eos %) 0.7 % 0.0-5.4 Basophils/100 leukocytes in 0.1 % 0.1-1.2 Unspecified specimen (test code = 18910-5) Band form neutrophils [#/volume] 6.55 K/uL 1.56-6.13 H in Blood (test code = 89694-9) Lymphocytes [#/volume] in 1.3 K/uL 1.18-3.74 Unspecified specimen by Automated count (test code = 06169-0) mono # (test code = mono #) 0.46 K/uL 0.24-0.86 eos # (test code = eos #) 0.06 K/uL 0.04-0.36 basophil # (test code = basophil 0.01 K/uL 0.01-0.08 #) NRBC% (test code = NRBC%) 3 /100 WBC 0-0.2 H NRBC# (test code = NRBC#) 0 K/uL [facility], method unspecified - [id number] 01:45:00NeutrophilsBandLymphocyteMonocyteEosinophilPlatelet EstimateMataBeacham Memorial HospitalBasic metabolic 2000 panel - Serum or [id number] 01:45:00 Test Item Value Reference Range Interpretation [...] = 7.9 mg/dL 8.8-10.2 L calcium level) [facility] and Crossmatch panel - [id number] 13:40:00 Test Item Value Reference Range Interpretation Comments Blood type and Crossmatch unit number: panel - Blood (test code [id number] = 06719-7) [place] [id number] 13:40:00[facility] 13:40:00Results[place] [id number] 13:40:00Results [place] [id number] 13:40:00[facility] 13:40:00Results[place] [id number] 13:40:00Results [place] [id number] 13:40:00[facility] 13:40:00Results[place] [id number] 13:40:00Results [place] [id number] 13:40:00[facility]:40:00[facility] [place] [address]69Ggydgdwc0769-37-26 13:40:00Results [place] [id number] 13:40:00[facility] 13:40:00Results[place] [id number] 13:40:00Results [facility] Zhryoavv3159-69-80 13:40:00[facility] 13:40:[facility] Wqyopcnr7708-15-58 13:40:00Results [facility] Fzvwgotv6055-13-12 13:40:00[facility] 2020-01-15 13:40:00[facility] Vwjjoeab7659-65-36 13:40:00Results [facility] Srilwkkc6326-79-12 13:40:00[facility] 2020-01-15 13:40:00[facility] Wldoyqjy1345-64-39 13:40:00Results [facility] Ddvqsqzd7580-10-87 13:40:00[facility] 2020-01-15 13:40:00[facility] Pstglshr0680-85-35 13:40:00Results [facility] GroupBlood type and Crossmatch panel - [id number] 13:40:00 Test Item Value Reference Range Interpretation Comments Blood type and Crossmatch unit number: panel - Blood (test code [id number] = 75974-6) [facility] Fgrgpvlr9449-08-53 13:40:00[facility] 2020-01-15 13:40:00[facility] Gyyzdozu7091-51-12 13:40:00Results [facility] Zzzulpze8445-48-64 13:40:00[facility] 2020-01-15 13:40:00[facility] Brrjjjfg7584-15-55 13:40:00Results [facility] Kwhxyaaa2527-97-27 13:40:00[facility] 2020-01-15 13:40:00[facility] Uoefdhxp9615-83-87 13:40:00Results [facility] Ekbyyngv8316-10-07 13:40:00[facility] 2020-01-15 13:40:00[facility] Calzcliu4867-65-81 13:40:00Results [facility] Perxyaad4762-96-82 13:40:00[facility] 2020-01-15 13:40:00[facility] Tsyqsyia0461-14-40 13:40:00Results [facility] Jcqiitmu5333-37-81 13:40:00[facility] 2020-01-15 13:40:00[facility] Xdswshtt0072-86-97 13:40:00Results [facility] Cxregdxl0716-31-63 13:40:00[facility] 2020-01-15 13:40:00[facility] Uotogdso0774-81-76 13:40:00Results [facility] Hpqfrqqb0604-82-50 13:40:00[facility] 2020-01-15 13:40:00[facility] Fhsmjioh8595-85-57 13:40:00Results [facility] Ykzwiluc5869-01-70 13:40:00[facility] 2020-01-15 13:40:00[facility] Vbmoyvlo7559-95-29 13:40:00Results [facility] GroupBlood type and Crossmatch panel - [id number] 13:40:00 Test Item Value Reference Range Interpretation Comments Blood type and Crossmatch unit number: panel - Blood (test code [id number] = 47872-4) [facility] Xnxzkxmm7684-45-62 13:40:00[facility] 2020-01-15 13:40:00[facility] Lfujzqaq4446-35-39 13:40:00Results [facility] Rycytofc4435-56-83 13:40:00[facility] 2020-01-15 13:40:00[facility] Tabhhokn5249-10-71 13:40:00Results [facility] Pggztmpo8816-80-53 13:40:00[facility] 2020-01-15 13:40:00[facility] Oifwuwzn6533-43-37 13:40:00Results [facility] Wymewyme3405-95-92 13:40:00[facility] 2020-01-15 13:40:00[facility] Vqfwvzxk0427-64-42 13:40:00Results [facility] Bswgubaz1324-54-84 13:40:00[facility] 2020-01-15 13:40:00[facility] Mekaviqi9978-30-97 13:40:00Results [facility] Sdhzecea3047-69-50 13:40:00[facility] 2020-01-15 13:40:00[facility] Nfnygawe1886-24-52 13:40:00Results [facility] Gopmemnn4964-77-88 13:40:00[facility] 2020-01-15 13:40:00[facility] Yxsdzifi8446-60-53 13:40:00Results [facility] Uzkeuqyo1482-88-89 13:40:00[facility] 2020-01-15 13:40:00[facility] Hkwhznpz2585-71-29 13:40:00Results [facility] Fktfyzyd5141-32-74 13:40:00Results[facility] 2020-01-15 13:40:00ResultsM[facility]Beacham [facility] Hospitalupc2020-05-08 13:40:00Results [facility]emat[facility] - Ujwcm2441-44-12 09:48:00 Test Item Value Reference Range Interpretation Comments hemoglobin (test code = hemoglobin) 7.6 g/dL 10.5-15.7 hematocrit (test code = hematocrit) 23.5 % 34.0-50.0 [facility]Hem[facility] Hematocrit panel - Ocawx9078-56-40 09:48:00 Test Item Value Reference Range Interpretation Comments hemoglobin (test code = hemoglobin) 7.6 g/dL 10.5-15.7 hematocrit (test code = hematocrit) 23.5 % 34.0-50.0 [facility]Hem[facility] Hematocrit panel - [id number] 09:48:00 Test Item Value Reference Range Interpretation Comments hemoglobin (test code = hemoglobin) 7.6 g/dL 10.5-15.7 hematocrit (test code = hematocrit) 23.5 % 34.0-50.0 [facility]PT/[id number] 08:07:00 Test Item Value Reference Range Interpretation Comments prothrombin time (test code = 10.4 seconds 10.3-12.3 prothrombin time) INR in Blood by Coagulation 0.96 assay (test code = 57394-3) [facility] thromb[facility]in jakr9294-01-67 08:07:00 Test Item Value Reference Range Interpretation Comments INR in Blood by Coagulation 22.0 seconds 22.5-37.0 L assay (test code = 89802-1) [facility] type and Indirect antibody screen panel - Blood 2020-01-15 08:07:00 Test Item Value Reference Range Interpretation Comments Rh [Type] in Blood (test code = neg 92263-4) ABO and Rh group panel - Blood O negative (test code = 11378-3) [facility]PT/[id number] 08:07:00 Test Item Value Reference Range Interpretation Comments prothrombin time (test code = 10.4 seconds 10.3-12.3 prothrombin time) INR in Blood by Coagulation 0.96 assay (test code = 45672-1) [facility] wjwm0334-28-00 08:07:00 Test Item Value Reference Range Interpretation Comments INR in Blood by Coagulation 22.0 seconds 22.5-37.0 L assay (test code = 85461-8) [facility] type and Indirect antibody screen panel - Blood 2020-01-15 08:07:00 Test Item Value Reference Range Interpretation Comments Rh [Type] in Blood (test code = neg 52990-4) ABO and Rh group panel - Blood O negative (test code = 09498-6) [facility]PT/[id number] 08:07:00 Test Item Value Reference Range Interpretation Comments prothrombin time (test code = 10.4 seconds 10.3-12.3 prothrombin time) INR in Blood by Coagulation 0.96 assay (test code = 28545-3) [facility] fjoy2138-87-11 08:07:00 Test Item Value Reference Range Interpretation Comments INR in Blood by Coagulation 22.0 seconds 22.5-37.0 L assay (test code = 96528-1) [facility] type and Indirect antibody screen panel - Blood 2020-01-15 08:07:00 Test Item Value Reference Range Interpretation Comments Rh [Type] in Blood (test code = neg 96387-4) ABO and Rh group panel - Blood O negative (test code = 55367-9) [facility]Com[facility] metabolic 2000 panel - Serum or Plasma [...] Serum or Plasma (test code = 6768-6) [facility] MadisonCreatine kinase [Enzymatic activity/volume] in Serum or Rokmda7268-41-82 07:32:00 Test Item Value Reference Range Interpretation Comments creatine kinase (test code = creatine 901 U/L 20-180 H kinase) [facility] MadisonNatriuretic peptide.B prohormone N-Terminal [Mass/volume] in Serum or Ibvbda6744-51-49 07:32:00 Test Item Value Reference Range Interpretation Comments N-term pro natriuretic peptide (test 91 pg/mL 0-125 code = N-term pro natriuretic peptide) [facility] MadisonTroponin I.cardiac [Mass/volume] in Xkgav1489-45-52 07:32:00 Test Item Value Reference Range Interpretation Comments cardiac troponin I (test code = cardiac <0.30 0.0-0.5 troponin I) [facility] MadisonCreatine kinase.MB [Mass/volume] in Serum or Plasma 2020-01-15 07:32:00 Test Item Value Reference Range Interpretation Comments Creatine kinase.MB [Mass/volume] 25.1 NG/mL 0.0-3.6 H in Serum or Plasma by Immunoassay (test code = 14048-1) [facility]Comprehensive metabolic 2000 panel - Serum or Plasma [...] Serum or Plasma (test code = 6768-6) [facility] MadisonCreatine kinase [Enzymatic activity/volume] in Serum or Iglbjv1681-91-60 07:32:00 Test Item Value Reference Range Interpretation Comments creatine kinase (test code = creatine 901 U/L 20-180 H kinase) [facility] MadisonNatriuretic peptide.B prohormone N-Terminal [Mass/volume] in Serum or Eujxvt1246-30-86 07:32:00 Test Item Value Reference Range Interpretation Comments N-term pro natriuretic peptide (test 91 pg/mL 0-125 code = N-term pro natriuretic peptide) [facility] MadisonTroponin I.cardiac [Mass/volume] in Arhyv1938-88-26 07:32:00 Test Item Value Reference Range Interpretation Comments cardiac troponin I (test code = cardiac <0.30 0.0-0.5 troponin I) [facility] MadisonCreatine kinase.MB [Mass/volume] in Serum or Plasma 2020-01-15 07:32:00 Test Item Value Reference Range Interpretation Comments Creatine kinase.MB [Mass/volume] 25.1 NG/mL 0.0-3.6 H in Serum or Plasma by Immunoassay (test code = 57322-9) [facility] W Auto Differential panel - Tgppn0615-04-54 07:32:00 Test Item Value Reference Range Interpretation Comments white blood count (test code = 8.5 K/uL 4.0-11.5 white blood count) red blood count (test code = red 1.60 M/uL 3.80-5.20 L blood count) hemoglobin (test code = 5.1 g/dL 10.5-15.7 hemoglobin) hematocrit (test code = 16.9 % 34.0-50.0 hematocrit) MCV [Entitic volume] (test code = 105.6 fL 86-100 H 44140-7) mean corpuscular hemoglobin (test 31.9 pg 26.2-33.4 [...] H leukocytes in Blood (test code = 41799-9) Immature granulocytes [#/volume] 0.0 K/uL 0.0-0.03 H in Blood (test code = 08406-5) lymphocyte% (test code = 11.4 % 10.0-50.0 lymphocyte%) mono % (test code = mono %) 5.4 % 3.6-12.0 eos % (test code = eos %) 0.5 % 0.0-5.4 Basophils/100 leukocytes in 0.1 % 0.1-1.2 Unspecified specimen (test code = 68621-4) Band form neutrophils [#/volume] 6.97 K/uL 1.56-6.13 H in Blood (test code = 15422-3) Lymphocytes [#/volume] in 1.0 K/uL 1.18-3.74 L Unspecified specimen by Automated count (test code = 91981-9) mono # (test code = mono #) 0.46 K/uL 0.24-0.86 eos # (test code = eos #) 0.04 K/uL 0.04-0.36 basophil # (test code = basophil 0.01 K/uL 0.01-0.08 #) NRBC% (test code = NRBC%) 2 /100 WBC 0-0.2 H NRBC# (test code = NRBC#) 0 K/uL [facility]Different[facility] panel, method unspecified - Lthas2683-48-04 07:32:00NeutrophilsBandLymphocyteMonocyteEosinophilBasophilPlatelet EstimateDifferential comment-[facility]Comprehensive [facility] 2000 panel - Serum or Nkqcea7260-06-54 07:32:00 Test Item Value Reference Range Interpretation [...] Serum or Plasma (test code = 6768-6) [facility] GroupCreat[facility] kinase [Enzymatic activity/volume] in Serum or Bqnvto3597-56-13 07:32:00 Test Item Value Reference Range Interpretation Comments creatine kinase (test code = creatine 901 U/L 20-180 H kinase) [facility] GroupNatriuretic peptide.B prohormone N-Terminal [Mass/volume] in Serum or Kulrjn9055-66-44 07:32:00 Test Item Value Reference Range Interpretation Comments N-term pro natriuretic peptide (test 91 pg/mL 0-125 code = N-term pro natriuretic peptide) [facility] MadisonTroponin I.cardiac [Mass/volume] in Uusnd9617-77-20 07:32:00 Test Item Value Reference Range Interpretation Comments cardiac troponin I (test code = cardiac <0.30 0.0-0.5 troponin I) [facility] MadisonCreatine kinase.MB [Mass/volume] in Serum or Plasma 2020-01-15 07:32:00 Test Item Value Reference Range Interpretation Comments Creatine kinase.MB [Mass/volume] 25.1 NG/mL 0.0-3.6 H in Serum or Plasma by Immunoassay (test code = 58125-1) [facility] MadisonUrinalysis complete panel - [id number] 04:45:00 Test Item Value Reference Range Interpretation Comments Color of Urine by Auto (test colorless code = 29594-2) Appearance of Urine (test code clear clear = 5767-9) Glucose [Presence] in Urine by negative negative Automated test strip (test code = 22361-5) Bilirubin.total [Mass/volume] negative negative in Urine (test code = 1978-6) Ketones [Mass/volume] in Urine negative negative by Automated test strip (test code = 83192-9) Specific gravity of Urine by 1.008 1.003-1.030 Automated test strip (test code = 83606-6) blood urine (test code = blood negative negative urine) pH of Urine (test code = 5.500 5-9 2756-5) protein urine (UA) (test code = negative negative protein urine (UA)) Urobilinogen [Presence] in normal 0.2-1.0 Urine (test code = 04919-0) Nitrite [Presence] in Urine by negative negative Test strip (test code = 5802-4) Leukocyte esterase [Presence] negative negative in Urine by Automated test strip (test code = 54666-4) Erythrocytes [#/volume] in <1 0-5 Urine by Automated count (test code = 798-9) Leukocytes [#/area] in Urine <1 0-5 sediment by Automated count (test code = 50095-1) Epithelial cells [Presence] in <1 0-5 Urine sediment by Light microscopy (test code = 74662-7) Bacteria identified in Urine by none detected none detect Culture (test code = 630-4) Casts [#/area] in Urine =2-5 none detect sediment by Automated count (test code = 13403-7) urine culture added? (test code no = urine culture added?) [facility] - [id number] 04:45:00 Test Item Value Reference Range Interpretation Comments Color of Urine by Auto (test colorless code = 76555-6) Appearance of Urine (test code clear clear = 5767-9) Glucose [Presence] in Urine by negative negative Automated test strip (test code = 74907-3) Bilirubin.total [Mass/volume] negative negative in Urine (test code = 1977-) Ketones [Mass/volume] in Urine negative negative by Automated test strip (test code = 74054-6) Specific gravity of Urine by 1.008 1.003-1.030 Automated test strip (test code = 17759-0) blood urine (test code = blood negative negative urine) pH of Urine (test code = 5.500 5-9 2756-5) protein urine (UA) (test code = negative negative protein urine (UA)) Urobilinogen [Presence] in normal 0.2-1.0 Urine (test code = 30967-1) Nitrite [Presence] in Urine by negative negative Test strip (test code = 5802-4) Leukocyte esterase [Presence] negative negative in Urine by Automated test strip (test code = 64787-9) Erythrocytes [#/volume] in <1 0-5 Urine by Automated count (test code = 798-9) Leukocytes [#/area] in Urine <1 0-5 sediment by Automated count (test code = 27514-4) Epithelial cells [Presence] in <1 0-5 Urine sediment by Light microscopy (test code = 77217-6) Bacteria identified in Urine by none detected none detect Culture (test code = 630-4) Casts [#/area] in Urine =2-5 none detect sediment by Automated count (test code = 28575-4) urine culture added? (test code no = urine culture added?) [facility]Ur[facility] - [id number] 04:45:00 Test Item Value Reference Range Interpretation Comments Color of Urine by Auto (test colorless code = 83517-5) Appearance of Urine (test code clear clear = 5767-9) Glucose [Presence] in Urine by negative negative Automated test strip (test code = 46413-3) Bilirubin.total [Mass/volume] negative negative in Urine (test code = 1978-02) Ketones [Mass/volume] in Urine negative negative by Automated test strip (test code = 95038-0) Specific gravity of Urine by 1.008 1.003-1.030 Automated test strip (test code = 03624-8) blood urine (test code = blood negative negative urine) pH of Urine (test code = 5.500 5-9 2756-5) protein urine (UA) (test code = negative negative protein urine (UA)) Urobilinogen [Presence] in normal 0.2-1.0 Urine (test code = 90831-5) Nitrite [Presence] in Urine by negative negative Test strip (test code = 5802-4) Leukocyte esterase [Presence] negative negative in Urine by Automated test strip (test code = 45509-7) Erythrocytes [#/volume] in <1 0-5 Urine by Automated count (test code = 798-9) Leukocytes [#/area] in Urine <1 0-5 sediment by Automated count (test code = 81213-4) Epithelial cells [Presence] in <1 0-5 Urine sediment by Light microscopy (test code = 64548-7) Bacteria identified in Urine by none detected none detect Culture (test code = 630-4) Casts [#/area] in Urine =2-5 none detect sediment by Automated count (test code = 64328-8) urine culture added? (test code no = urine culture added?) [facility] W Auto Differential panel - [id number] 09:37:00 Test Item Value Reference Range Interpretation Comments white blood count (test code = 6.7 K/uL 4.0-11.5 white blood count) red blood count (test code = red 2.27 M/uL 3.80-5.20 L blood count) hemoglobin (test code = 7.2 g/dL 10.5-15.7 hemoglobin) hematocrit (test code = 23.1 % 34.0-50.0 hematocrit) MCV [Entitic volume] (test code = 101.8 fL 86-100 H 39184-4) mean corpuscular hemoglobin (test 31.7 pg 26.2-33.4 [...] 44.4-80.1 leukocytes in Blood (test code = 68229-8) Immature granulocytes [#/volume] 0.0 K/uL 0.0-0.03 in Blood (test code = 52465-6) lymphocyte% (test code = 19.0 % 10.0-50.0 lymphocyte%) mono % (test code = mono %) 5.2 % 3.6-12.0 eos % (test code = eos %) 0.4 % 0.0-5.4 Basophils/100 leukocytes in 0.3 % 0.1-1.2 Unspecified specimen (test code = 63822-9) Band form neutrophils [#/volume] 4.98 K/uL 1.56-6.13 in Blood (test code = 09620-6) Lymphocytes [#/volume] in 1.3 K/uL 1.18-3.74 Unspecified specimen by Automated count (test code = 72324-2) mono # (test code = mono #) 0.35 K/uL 0.24-0.86 eos # (test code = eos #) 0.03 K/uL 0.04-0.36 L basophil # (test code = basophil 0.02 K/uL 0.01-0.08 #) NRBC% (test code = NRBC%) 1 /100 WBC 0-0.2 H NRBC# (test code = NRBC#) 0 K/uL [facility] W Auto Differential panel - [id number] 09:37:00 Test Item Value Reference Range Interpretation Comments white blood count (test code = 6.7 K/uL 4.0-11.5 white blood count) red blood count (test code = red 2.27 M/uL 3.80-5.20 L blood count) hemoglobin (test code = 7.2 g/dL 10.5-15.7 hemoglobin) hematocrit (test code = 23.1 % 34.0-50.0 hematocrit) MCV [Entitic volume] (test code = 101.8 fL 86-100 H 04302-8) mean corpuscular hemoglobin (test 31.7 pg 26.2-33.4 [...] 44.4-80.1 leukocytes in Blood (test code = 77074-6) Immature granulocytes [#/volume] 0.0 K/uL 0.0-0.03 in Blood (test code = 45605-1) lymphocyte% (test code = 19.0 % 10.0-50.0 lymphocyte%) mono % (test code = mono %) 5.2 % 3.6-12.0 eos % (test code = eos %) 0.4 % 0.0-5.4 Basophils/100 leukocytes in 0.3 % 0.1-1.2 Unspecified specimen (test code = 20020-0) Band form neutrophils [#/volume] 4.98 K/uL 1.56-6.13 in Blood (test code = 13355-8) Lymphocytes [#/volume] in 1.3 K/uL 1.18-3.74 Unspecified specimen by Automated count (test code = 55230-8) mono # (test code = mono #) 0.35 K/uL 0.24-0.86 eos # (test code = eos #) 0.03 K/uL 0.04-0.36 L basophil # (test code = basophil 0.02 K/uL 0.01-0.08 #) NRBC% (test code = NRBC%) 1 /100 WBC 0-0.2 H NRBC# (test code = NRBC#) 0 K/uL [facility] W Auto Differential panel - [id number] 09:37:00 Test Item Value Reference Range Interpretation Comments white blood count (test code = 6.7 K/uL 4.0-11.5 white blood count) red blood count (test code = red 2.27 M/uL 3.80-5.20 L blood count) hemoglobin (test code = 7.2 g/dL 10.5-15.7 hemoglobin) hematocrit (test code = 23.1 % 34.0-50.0 hematocrit) MCV [Entitic volume] (test code = 101.8 fL 86-100 H 66571-7) mean corpuscular hemoglobin (test 31.7 pg 26.2-33.4 [...] 44.4-80.1 leukocytes in Blood (test code = 92447-3) Immature granulocytes [#/volume] 0.0 K/uL 0.0-0.03 in Blood (test code = 14539-3) lymphocyte% (test code = 19.0 % 10.0-50.0 lymphocyte%) mono % (test code = mono %) 5.2 % 3.6-12.0 eos % (test code = eos %) 0.4 % 0.0-5.4 Basophils/100 leukocytes in 0.3 % 0.1-1.2 Unspecified specimen (test code = 84910-6) Band form neutrophils [#/volume] 4.98 K/uL 1.56-6.13 in Blood (test code = 93511-6) Lymphocytes [#/volume] in 1.3 K/uL 1.18-3.74 Unspecified specimen by Automated count (test code = 59501-5) mono # (test code = mono #) 0.35 K/uL 0.24-0.86 eos # (test code = eos #) 0.03 K/uL 0.04-0.36 L basophil # (test code = basophil 0.02 K/uL 0.01-0.08 #) NRBC% (test code = NRBC%) 1 /100 WBC 0-0.2 H NRBC# (test code = NRBC#) 0 K/uL [facility] [Enzymatic activity/volume] in Serum or [id number] 05:20:00 Test Item Value Reference Range Interpretation Comments creatine kinase (test code = creatine 189 U/L 20-180 H kinase) [facility] MadisonTroponin I.cardiac [Mass/volume] in [id number] 05:20:00 Test Item Value Reference Range Interpretation Comments cardiac troponin I (test code = cardiac <0.30 0.0-0.5 troponin I) [facility]Creatine kinase.MB [Mass/volume] in Serum or Plasma 2019-06-26 05:20:00 Test Item Value Reference Range Interpretation Comments mass creatinine kinase-mb (test 2.6 NG/mL 0.0-3.6 code = mass creatinine kinase-mb) [facility] W Auto Differential panel - [id number] 02:50:00 Test Item Value Reference Range Interpretation Comments white blood count (test code = 4.8 K/uL 4.0-11.5 white blood count) red blood count (test code = red 3.44 M/uL 3.80-5.20 L blood count) hemoglobin (test code = 11.0 g/dL 10.5-15.7 hemoglobin) hematocrit (test code = 34.4 % 34.0-50.0 hematocrit) Erythrocyte mean corpuscular 100.0 fL 86-100 volume [Entitic volume] (test code = 92184-2) mean corpuscular hemoglobin (test 32.0 pg 26.2-33.4 [...] 44.4-80.1 leukocytes in Blood (test code = 89278-7) Granulocytes Immature [#/volume] 0.0 K/uL 0.0-0.03 in Blood (test code = 85827-5) lymphocyte% (test code = 19.7 % 10.0-50.0 lymphocyte%) mono % (test code = mono %) 9.5 % 3.6-12.0 eos % (test code = eos %) 1.7 % 0.0-5.4 Basophils/100 leukocytes in 0.2 % 0.1-1.2 Unspecified specimen (test code = 37934-3) Neutrophils.band form [#/volume] 3.32 K/uL 1.56-6.13 in Blood (test code = 07789-9) Lymphocytes [#/volume] in 1.0 K/uL 1.18-3.74 L Unspecified specimen by Automated count (test code = 55437-8) mono # (test code = mono #) 0.46 K/uL 0.24-0.86 eos # (test code = eos #) 0.08 K/uL 0.04-0.36 basophil # (test code = basophil 0.01 K/uL 0.01-0.08 #) NRBC% (test code = NRBC%) 0 /100 WBC 0-0.2 NRBC# (test code = NRBC#) 0 K/uL [facility], [id number] 02:50:00 NeutrophilsBandLymphocyteAtypical LymphMonocyteEosinophilBasophilMetamyelocytePlatelet EstimatePlatelet MorphologyHypochromasiaAnisocytosisMacrocytosisToxic GranulationToxic VacuolationMatagoPanola Medical CenterPT/[id number] 02:50:00 Test Item Value Reference Range Interpretation Comments prothrombin time (test code = 9.5 seconds 10.3-12.3 L prothrombin time) INR in Blood by Coagulation assay 0.90 (test code = 84439-7) [facility]in [id number] 02:50:00 Test Item Value Reference Range Interpretation Comments INR in Blood by Coagulation 24.8 seconds 22.5-37.0 assay (test code = 24580-5) [facility]Comprehensive metabolic 2000 panel - Serum or Plasma [...] Serum or Plasma (test code = 6768-6) [facility] MadisonCreatine kinase [Enzymatic activity/volume] in Serum or [id number] 02:50:00 Test Item Value Reference Range Interpretation Comments creatine kinase (test code = creatine 187 U/L 20-180 H kinase) [facility] MadisonNatriuretic peptide.B prohormone N-Terminal [Mass/volume] in Serum or [id number] 02:50:00 Test Item Value Reference Range Interpretation Comments N-term pro natriuretic peptide 171 pg/mL 0-125 H (test code = N-term pro natriuretic peptide) [facility] MadisonTroponin I.cardiac [Mass/volume] in [id number] 02:50:00 Test Item Value Reference Range Interpretation Comments cardiac troponin I (test code = cardiac <0.30 0.0-0.5 troponin I) [facility]Creatine kinase.MB [Mass/volume] in Serum or Plasma 2019-06-26 02:50:00 Test Item Value Reference Range Interpretation Comments mass creatinine kinase-mb (test 2.6 NG/mL 0.0-3.6 code = mass creatinine kinase-mb) [facility] W Auto Differential panel - [id number] 02:50:00 Test Item Value Reference Range Interpretation Comments white blood count (test code = 4.8 K/uL 4.0-11.5 white blood count) red blood count (test code = red 3.44 M/uL 3.80-5.20 L blood count) hemoglobin (test code = 11.0 g/dL 10.5-15.7 hemoglobin) hematocrit (test code = 34.4 % 34.0-50.0 hematocrit) Erythrocyte mean corpuscular 100.0 fL 86-100 volume [Entitic volume] (test code = 27186-9) mean corpuscular hemoglobin (test 32.0 pg 26.2-33.4 [...] 44.4-80.1 leukocytes in Blood (test code = 27031-4) Granulocytes Immature [#/volume] 0.0 K/uL 0.0-0.03 in Blood (test code = 02370-8) lymphocyte% (test code = 19.7 % 10.0-50.0 lymphocyte%) mono % (test code = mono %) 9.5 % 3.6-12.0 eos % (test code = eos %) 1.7 % 0.0-5.4 Basophils/100 leukocytes in 0.2 % 0.1-1.2 Unspecified specimen (test code = 68410-6) Neutrophils.band form [#/volume] 3.32 K/uL 1.56-6.13 in Blood (test code = 46198-4) Lymphocytes [#/volume] in 1.0 K/uL 1.18-3.74 L Unspecified specimen by Automated count (test code = 72896-7) mono # (test code = mono #) 0.46 K/uL 0.24-0.86 eos # (test code = eos #) 0.08 K/uL 0.04-0.36 basophil # (test code = basophil 0.01 K/uL 0.01-0.08 #) NRBC% (test code = NRBC%) 0 /100 WBC 0-0.2 NRBC# (test code = NRBC#) 0 K/uL [facility], [id number] 02:50:00 NeutrophilsBandLymphocyteAtypical LymphMonocyteEosinophilBasophilMetamyelocytePlatelet EstimatePlatelet MorphologyHypochromasiaAnisocytosisMacrocytosisToxic GranulationToxic VacuolationMatagoPanola Medical CenterPT/[id number] 02:50:00 Test Item Value Reference Range Interpretation Comments prothrombin time (test code = 9.5 seconds 10.3-12.3 L prothrombin time) INR in Blood by Coagulation assay 0.90 (test code = 90544-5) [facility]partial thromb[facility]in [id number] 02:50:00 Test Item Value Reference Range Interpretation Comments INR in Blood by Coagulation 24.8 seconds 22.5-37.0 assay (test code = 22937-6) [facility]Com[facility] metabolic 2000 panel - Serum or Plasma [...] Serum or Plasma (test code = 6768-6) [facility]Creat[facility] kinase [Enzymatic activity/volume] in Serum or [id number] 02:50:00 Test Item Value Reference Range Interpretation Comments creatine kinase (test code = creatine 187 U/L 20-180 H kinase) [facility] GroupNatriuretic peptide.B prohormone N-Terminal [Mass/volume] in Serum or [id number] 02:50:00 Test Item Value Reference Range Interpretation Comments N-term pro natriuretic peptide 171 pg/mL 0-125 H (test code = N-term pro natriuretic peptide) [facility] MadisonTroponin I.cardiac [Mass/volume] in [id number] 02:50:00 Test Item Value Reference Range Interpretation Comments cardiac troponin I (test code = cardiac <0.30 0.0-0.5 troponin I) [facility] MadisonCreatine kinase.MB [Mass/volume] in Serum or Plasma 2019-06-26 02:50:00 Test Item Value Reference Range Interpretation Comments mass creatinine kinase-mb (test 2.6 NG/mL 0.0-3.6 code = mass creatinine kinase-mb) [facility] W Auto Differential panel - [id number] 12:30:00 Test Item Value Reference Range Interpretation Comments white blood count (test code = 5.8 K/uL 4.0-11.5 white blood count) red blood count (test code = red 3.64 M/uL 3.80-5.20 L blood count) hemoglobin (test code = 11.6 g/dL 10.5-15.7 hemoglobin) hematocrit (test code = 36.9 % 34.0-50.0 hematocrit) Erythrocyte mean corpuscular 101.4 fL 86-100 H volume [Entitic volume] (test code = 95791-6) mean corpuscular hemoglobin (test 31.9 pg 26.2-33.4 [...] 44.4-80.1 leukocytes in Blood (test code = 04889-1) Granulocytes Immature [#/volume] 0.0 K/uL 0.0-0.03 in Blood (test code = 68495-5) lymphocyte% (test code = 20.2 % 10.0-50.0 lymphocyte%) mono % (test code = mono %) 9.8 % 3.6-12.0 eos % (test code = eos %) 0.9 % 0.0-5.4 Basophils/100 leukocytes in 0.2 % 0.1-1.2 Unspecified specimen (test code = 76569-6) Neutrophils.band form [#/volume] 4.00 K/uL 1.56-6.13 in Blood (test code = 47398-0) Lymphocytes [#/volume] in 1.2 K/uL 1.18-3.74 Unspecified specimen by Automated count (test code = 11396-6) mono # (test code = mono #) 0.57 K/uL 0.24-0.86 eos # (test code = eos #) 0.05 K/uL 0.04-0.36 basophil # (test code = basophil 0.01 K/uL 0.01-0.08 #) NRBC% (test code = NRBC%) 0 /100 WBC 0-0.2 NRBC# (test code = NRBC#) 0 K/uL [facility], [id number] 12:30:00 NeutrophilsBandLymphocyteAtypical LymphMonocyteEosinophilBasophilPlatelet EstimatePlatelet MorphologyMacrocytosisMerit Health MadisonBasic metabolic 2000 panel - Serum or [id number] 12:30:00 Test Item Value Reference Range Interpretation [...] = calcium 8.5 mg/dL 8.8-10.2 L level) [facility] W Auto Differential panel - [id number] 12:30:00 Test Item Value Reference Range Interpretation Comments white blood count (test code = 5.8 K/uL 4.0-11.5 white blood count) red blood count (test code = red 3.64 M/uL 3.80-5.20 L blood count) hemoglobin (test code = 11.6 g/dL 10.5-15.7 hemoglobin) hematocrit (test code = 36.9 % 34.0-50.0 hematocrit) Erythrocyte mean corpuscular 101.4 fL 86-100 H volume [Entitic volume] (test code = 77257-4) mean corpuscular hemoglobin (test 31.9 pg 26.2-33.4 [...] 44.4-80.1 leukocytes in Blood (test code = 78624-6) Granulocytes Immature [#/volume] 0.0 K/uL 0.0-0.03 in Blood (test code = 05350-8) lymphocyte% (test code = 20.2 % 10.0-50.0 lymphocyte%) mono % (test code = mono %) 9.8 % 3.6-12.0 eos % (test code = eos %) 0.9 % 0.0-5.4 Basophils/100 leukocytes in 0.2 % 0.1-1.2 Unspecified specimen (test code = 17875-7) Neutrophils.band form [#/volume] 4.00 K/uL 1.56-6.13 in Blood (test code = 95306-1) Lymphocytes [#/volume] in 1.2 K/uL 1.18-3.74 Unspecified specimen by Automated count (test code = 08342-6) mono # (test code = mono #) 0.57 K/uL 0.24-0.86 eos # (test code = eos #) 0.05 K/uL 0.04-0.36 basophil # (test code = basophil 0.01 K/uL 0.01-0.08 #) NRBC% (test code = NRBC%) 0 /100 WBC 0-0.2 NRBC# (test code = NRBC#) 0 K/uL [facility], [id number] 12:30:00 NeutrophilsBandLymphocyteAtypical LymphMonocyteEosinophilBasophilPlatelet EstimatePlatelet MorphologyMacrocytosisMerit Health MadisonBasic metabolic 2000 panel - Serum or [id number] 12:30:00 Test Item Value Reference Range Interpretation [...] = calcium 8.5 mg/dL 8.8-10.2 L level) [facility] MadisonUrinalysis complete panel - [id number] 11:54:00 Test Item Value Reference Range Interpretation Comments Color of Urine by Auto light yellow (test code = 38279-4) Appearance of Urine (test clear clear code = 5767-9) Glucose [Presence] in negative negative Urine by Automated test strip (test code = 47539-6) Bilirubin.total negative negative [Mass/volume] in Urine (test code = 1978-6) Ketones [Mass/volume] in negative negative Urine by Automated test strip (test code = 17599-8) Specific gravity of Urine 1.025 1.003-1.030 by Automated test strip (test code = 94776-8) blood urine (test code = negative negative blood urine) pH of Urine (test code = 6.500 5-9 2756-5) protein urine (UA) (test negative negative code = protein urine (UA)) Urobilinogen [Presence] normal 0.2-1.0 in Urine (test code = 79241-3) Nitrite [Presence] in negative negative Urine by Test strip (test code = 5802-4) Leukocyte esterase negative negative [Presence] in Urine by Automated test strip (test code = 23430-4) Erythrocytes [#/volume] <1 0-5 in Urine by Automated count (test code = 798-9) Leukocytes [#/area] in <1 0-5 Urine sediment by Automated count (test code = 08200-2) Epithelial cells <1 0-5 [Presence] in Urine sediment by Light microscopy (test code = 67081-8) Bacteria identified in none detected none detect Urine by Culture (test code = 630-4) Casts [#/area] in Urine =11-14 none detect H sediment by Automated count (test code = 74552-2) urine culture added? no (test code = urine culture added?) path casts,U (test code = cellular casts (1-5 none detect A path casts,U) [facility] - [id number] 11:54:00 Test Item Value Reference Range Interpretation Comments Color of Urine by Auto light yellow (test code = 13097-4) Appearance of Urine (test clear clear code = 5767-9) Glucose [Presence] in negative negative Urine by Automated test strip (test code = 60816-0) Bilirubin.total negative negative [Mass/volume] in Urine (test code = 1978-6) Ketones [Mass/volume] in negative negative Urine by Automated test strip (test code = 66094-4) Specific gravity of Urine 1.025 1.003-1.030 by Automated test strip (test code = 02084-9) blood urine (test code = negative negative blood urine) pH of Urine (test code = 6.500 5-9 2756-5) protein urine (UA) (test negative negative code = protein urine (UA)) Urobilinogen [Presence] normal 0.2-1.0 in Urine (test code = 73826-5) Nitrite [Presence] in negative negative Urine by Test strip (test code = 5802-4) Leukocyte esterase negative negative [Presence] in Urine by Automated test strip (test code = 91148-3) Erythrocytes [#/volume] <1 0-5 in Urine by Automated count (test code = 798-9) Leukocytes [#/area] in <1 0-5 Urine sediment by Automated count (test code = 04076-0) Epithelial cells <1 0-5 [Presence] in Urine sediment by Light microscopy (test code = 82714-6) Bacteria identified in none detected none detect Urine by Culture (test code = 630-4) Casts [#/area] in Urine =11-14 none detect H sediment by Automated count (test code = 55802-9) urine culture added? no (test code = urine culture added?) path casts,U (test code = cellular casts (1-5 none detect A path casts,U) [facility] W Auto Differential panel - [id number] 09:30:00 Test Item Value Reference Range Interpretation Comments white blood count (test code = 5.6 K/uL 4.0-11.5 white blood count) red blood count (test code = red 3.98 M/uL 3.80-5.20 blood count) hemoglobin (test code = 12.7 g/dL 10.5-15.7 hemoglobin) hematocrit (test code = 39.8 % 34.0-50.0 hematocrit) Erythrocyte mean corpuscular 100.0 fL 86-100 volume [Entitic volume] (test code = 52252-1) mean corpuscular hemoglobin (test 31.9 pg 26.2-33.4 [...] 44.4-80.1 leukocytes in Blood (test code = 02261-5) Granulocytes Immature [#/volume] 0.0 K/uL 0.0-0.03 in Blood (test code = 60036-3) lymphocyte% (test code = 15.1 % 10.0-50.0 lymphocyte%) mono % (test code = mono %) 6.8 % 3.6-12.0 eos % (test code = eos %) 0.7 % 0.0-5.4 Basophils/100 leukocytes in 0.4 % 0.1-1.2 Unspecified specimen (test code = 81484-5) Neutrophils.band form [#/volume] 4.29 K/uL 1.56-6.13 in Blood (test code = 26552-3) Lymphocytes [#/volume] in 0.8 K/uL 1.18-3.74 L Unspecified specimen by Automated count (test code = 49888-4) mono # (test code = mono #) 0.38 K/uL 0.24-0.86 eos # (test code = eos #) 0.04 K/uL 0.04-0.36 basophil # (test code = basophil 0.02 K/uL 0.01-0.08 #) NRBC% (test code = NRBC%) 0 /100 WBC 0-0.2 NRBC# (test code = NRBC#) 0 K/uL [facility], [id number] 09:30:00 NeutrophilsBandLymphocyteAtypical LymphMonocyteEosinophilPlatelet EstimatePlatelet MorphologyMacrocytosisMaMethodist Rehabilitation CenterPT/[id number] 09:30:00 Test Item Value Reference Range Interpretation Comments prothrombin time (test code = 10.5 seconds 10.3-12.3 prothrombin time) INR in Blood by Coagulation 0.95 assay (test code = 44235-2) [facility]partial thromboplastin [id number] 09:30:00 Test Item Value Reference Range Interpretation Comments INR in Blood by Coagulation 23.4 seconds 22.5-37.0 assay (test code = 21359-6) [facility] MadisonComprehensive metabolic 2000 panel - Serum or Plasma [...] Serum or Plasma (test code = 6768-6) [facility] MadisonMagnesium [Moles/volume] in Unspecified specimen 2019-06-03 09:30:00 Test Item Value Reference Range Interpretation Comments magnesium level (test code = 1.8 mg/dL 1.6-2.4 magnesium level) [facility] GroupEthanol [Mass/volume] in Serum or [id number] 09:30:00 Test Item Value Reference Range Interpretation Comments alcohol level (test code = alcohol <10.1 0.00-10.1 level) [facility] MadisonCreatine kinase [Enzymatic activity/volume] in Serum or [id number] 09:30:00 Test Item Value Reference Range Interpretation Comments creatine kinase (test code = creatine 150 U/L 20-180 kinase) [facility] MadisonNatriuretic peptide.B prohormone N-Terminal [Mass/volume] in Serum or [id number] 09:30:00 Test Item Value Reference Range Interpretation Comments N-term pro natriuretic peptide 200 pg/mL 0-125 H (test code = N-term pro natriuretic peptide) [facility] MadisonTroponin I.cardiac [Mass/volume] in [id number] 09:30:00 Test Item Value Reference Range Interpretation Comments cardiac troponin I (test code = cardiac <0.30 0.0-0.5 troponin I) [facility] MadisonCreatine kinase.MB [Mass/volume] in Serum or Plasma 2019-06-03 09:30:00 Test Item Value Reference Range Interpretation Comments mass creatinine kinase-mb (test 2.3 NG/mL 0.0-3.6 code = mass creatinine kinase-mb) [facility] MadisonMyoglobin [Mass/volume] in Serum or [id number] 09:30:00 Test Item Value Reference Range Interpretation Comments myoglobin (test code = myoglobin) 37 NG/mL 25-58 [facility] W Auto Differential panel - [id number] 09:30:00 Test Item Value Reference Range Interpretation Comments white blood count (test code = 5.6 K/uL 4.0-11.5 white blood count) red blood count (test code = red 3.98 M/uL 3.80-5.20 blood count) hemoglobin (test code = 12.7 g/dL 10.5-15.7 hemoglobin) hematocrit (test code = 39.8 % 34.0-50.0 hematocrit) Erythrocyte mean corpuscular 100.0 fL 86-100 volume [Entitic volume] (test code = 73973-0) mean corpuscular hemoglobin (test 31.9 pg 26.2-33.4 [...] 44.4-80.1 leukocytes in Blood (test code = 85503-3) Granulocytes Immature [#/volume] 0.0 K/uL 0.0-0.03 in Blood (test code = 00658-7) lymphocyte% (test code = 15.1 % 10.0-50.0 lymphocyte%) mono % (test code = mono %) 6.8 % 3.6-12.0 eos % (test code = eos %) 0.7 % 0.0-5.4 Basophils/100 leukocytes in 0.4 % 0.1-1.2 Unspecified specimen (test code = 23357-3) Neutrophils.band form [#/volume] 4.29 K/uL 1.56-6.13 in Blood (test code = 52045-2) Lymphocytes [#/volume] in 0.8 K/uL 1.18-3.74 L Unspecified specimen by Automated count (test code = 70469-5) mono # (test code = mono #) 0.38 K/uL 0.24-0.86 eos # (test code = eos #) 0.04 K/uL 0.04-0.36 basophil # (test code = basophil 0.02 K/uL 0.01-0.08 #) NRBC% (test code = NRBC%) 0 /100 WBC 0-0.2 NRBC# (test code = NRBC#) 0 K/uL [facility] panel, [id number] 09:30:00 NeutrophilsBandLymphocyteAtypical LymphMonocyteEosinophilPlatelet EstimatePlatelet MorphologyMacrocytosisMaMethodist Rehabilitation CenterPT/[id number] 09:30:00 Test Item Value Reference Range Interpretation Comments prothrombin time (test code = 10.5 seconds 10.3-12.3 prothrombin time) INR in Blood by Coagulation 0.95 assay (test code = 94594-5) [facility]partial thromboplastin [id number] 09:30:00 Test Item Value Reference Range Interpretation Comments INR in Blood by Coagulation 23.4 seconds 22.5-37.0 assay (test code = 75551-6) [facility]Comprehensive metabolic 2000 panel - Serum or Plasma [...] Serum or Plasma (test code = 6768-6) [facility] MadisonMagnesium [Moles/volume] in Unspecified specimen 2019-06-03 09:30:00 Test Item Value Reference Range Interpretation Comments magnesium level (test code = 1.8 mg/dL 1.6-2.4 magnesium level) [facility] MadisonEthanol [Mass/volume] in Serum or [id number] 09:30:00 Test Item Value Reference Range Interpretation Comments alcohol level (test code = alcohol <10.1 0.00-10.1 level) [facility] MadisonCreatine kinase [Enzymatic activity/volume] in Serum or [id number] 09:30:00 Test Item Value Reference Range Interpretation Comments creatine kinase (test code = creatine 150 U/L 20-180 kinase) [facility] MadisonNatriuretic peptide.B prohormone N-Terminal [Mass/volume] in Serum or [id number] 09:30:00 Test Item Value Reference Range Interpretation Comments N-term pro natriuretic peptide 200 pg/mL 0-125 H (test code = N-term pro natriuretic peptide) [facility] MadisonTroponin I.cardiac [Mass/volume] in [id number] 09:30:00 Test Item Value Reference Range Interpretation Comments cardiac troponin I (test code = cardiac <0.30 0.0-0.5 troponin I) [facility] MadisonCreatine kinase.MB [Mass/volume] in Serum or Plasma 2019-06-03 09:30:00 Test Item Value Reference Range Interpretation Comments mass creatinine kinase-mb (test 2.3 NG/mL 0.0-3.6 code = mass creatinine kinase-mb) [facility] MadisonMyoglobin [Mass/volume] in Serum or [id number] 09:30:00 Test Item Value Reference Range Interpretation Comments myoglobin (test code = myoglobin) 37 NG/mL -58 [facility] MadisonUrinalysis complete panel - [id number] 05:40:00 Test Item Value Reference Range Interpretation Comments Color of Urine by Auto yellow (test code = 69872-8) Appearance of Urine (test SL cloudy clear A code = 5767-9) Glucose [Presence] in Urine negative negative by Automated test strip (test code = 46658-1) Bilirubin.total negative negative [Mass/volume] in Urine (test code = 1978-6) Ketones [Mass/volume] in =1 negative H Urine by Automated test strip (test code = 35681-7) Specific gravity of Urine 1.022 1.003-1.030 by Automated test strip (test code = 81631-4) blood urine (test code = trace negative blood urine) pH of Urine (test code = 7.000 5-9 2756-5) protein urine (UA) (test =1+ (30 negative H code = protein urine (UA)) Urobilinogen [Presence] in =2.0 0.2-1.0 H Urine (test code = 28287-3) Nitrite [Presence] in Urine positive negative H by Test strip (test code = 5802-4) Leukocyte esterase =4 negative H [Presence] in Urine by Automated test strip (test code = 53852-9) Erythrocytes [#/volume] in =6-10 0-5 H Urine by Automated count (test code = 798-9) Leukocytes [#/area] in =11-14 0-5 H Urine sediment by Automated count (test code = 25850-8) Epithelial cells [Presence] =11-25 0-5 H in Urine sediment by Light microscopy (test code = 89804-2) Bacteria identified in trace none detect Urine by Culture (test code = 630-4) Casts [#/area] in Urine =2-5 none detect sediment by Automated count (test code = 03981-3) urine culture added? (test no. contaminated. code = urine culture added?) [facility]Bacteria identified in Urine by Leakeqh4080-90-33 05:40:00Bacteria Ur CultMerit Health MadisonPT/[id number] 05:17:00 Test Item Value Reference Range Interpretation Comments prothrombin time (test code = 9.9 seconds 10.3-12.3 L prothrombin time) INR in Blood by Coagulation assay 0.94 (test code = 04558-0) [facility]partial thromboplastin [id number] 05:17:00 Test Item Value Reference Range Interpretation Comments INR in Blood by Coagulation 24.3 seconds 22.5-37.0 assay (test code = 54409-4) [facility] MadisonCB W Auto Differential panel - [id number] 05:17:00 Test Item Value Reference Range Interpretation Comments white blood count (test 5.6 K/uL 4.0-11.5 code = white blood count) red blood count (test 4.89 M/uL 3.80-5.20 code = red blood count) Hemoglobin [Mass/volume] 15.0 g/dL 10.5-15.7 in Blood (test code = 718-7) hematocrit (test code = 47.9 % 34.0-50.0 hematocrit) Erythrocyte mean 97.9 fL 78-98 corpuscular volume [Entitic volume] (test code = 67049-7) Erythrocyte mean 30.6 pg 26.2-33.4 corpuscular hemoglobin [Entitic mass] (test code = 62447-3) mean corpuscular HGB 31.3 g/dL 31.5-36.2 L conc (test code = mean corpuscular HGB conc) red cell distribution 13.3 % 11.5-15.5 width (test code = red cell distribution width) Platelets [#/volume] in 283 K/uL 137-338 Blood (test code = 05544-0) Platelet mean volume 6.8 fL 8.4-11.8 L [Entitic volume] in Blood (test code = 17519-7) Neutrophils.band 68.6 % 44.4-80.1 form/100 leukocytes in Blood (test code = 49234-3) Lymphocytes/100 20.7 % 10.0-50.0 leukocytes in Body fluid (test code = 95449-2) Monocytes/100 leukocytes 9.2 % 3.6-12.04 in Blood by Automated count (test code = 5905-5) Eosinophils/100 0.4 % 0.0-5.41 leukocytes in Blood by Automated count (test code = 713-8) Basophils/100 leukocytes 1.1 % 0.0-0.79 H in Blood by Automated count (test code = 706-2) Platelet morphology hypersegmented polys normal RBC. finding [Identifier] in Blood (test code = 87688-3) [facility], [id number] 05:17:00 NeutrophilsBandLymphocyteAtypical LymphMonocyteEosinophilBasophilMyelocytePlatelet EstimatePlatelet M orphologyHypersegmented PolysToxic VacuolationSmudge CellsMerit Health MadisonComprehensive metabolic 2000 panel - Serum or [id number] 05:17:00 Test Item Value Reference Range Interpretation [...] Serum or Plasma (test code = 6768-6) [facility] kinase [Enzymatic activity/volume] in Serum or [id number] 05:17:00 Test Item Value Reference Range Interpretation Comments creatine kinase (test code = creatine 246 U/L 20-180 H kinase) [facility]Troponin I.cardiac [Mass/volume] in [id number] 05:17:00 Test Item Value Reference Range Interpretation Comments cardiac troponin I (test code = cardiac <0.30 0.0-0.5 troponin I) [facility] kinase.MB [Mass/volume] in Serum or Plasma 2018-10-09 05:17:00 Test Item Value Reference Range Interpretation Comments mass creatinine kinase-mb (test 3.9 NG/mL 0.0-3.6 H code = mass creatinine kinase-mb) [facility]
[2021-01-05 15:17] LABS: Absolute Lymphocytes (CBC) 0.7 K/uL (0.7-4.9); Basophils % 0.6 % (0-1.3); Hematocrit 28.2 % (36.0-45.0); Lymphocytes % 14.2 % (15.3-44.8); MPV 8.1 fL (7.6-11.3); RBC Red Blood Cell Count 3.05 M/uL (3.86-4.86)
[2021-01-05 15:18] LABS: Protime INR 1.01
[2021-01-05 15:29] LABS: ALT/SGPT 19 U/L (12-78); AST/SGOT 10 U/L (15-37); Albumin 2.5 g/dL (3.4-5.0); Alkaline Phosphatase 77 U/L (45-117); BUN Blood Urea Nitrogen 9 mg/dL (7-18); Bicarbonate 25 mmol/L (21-32); Bilirubin Direct 0.1 mg/dL (0-0.2); Bilirubin Total 0.4 mg/dL (0.2-1.0); Glucose Level 400 mg/dL (74-106); Lipase 96 U/L (73-393); Magnesium 1.6 mg/dL (1.8-2.4); Potassium 3.4 mmol/L (3.5-5.1); Protein, Total 5.7 g/dL (6.4-8.2); Sodium Level 140 mmol/L (136-145); Troponin (Emerg Dept Use Only) 0.02 ng/mL (0.0-0.045)
[2021-01-05] MEDS ORDERED: NA CHLORIDE 0.9% 250 ML ONE ×2 (15:43→17:59)
[2021-01-05] MEDS ORDERED: INSULIN -REGULAR HUMAN 50 UNIT/0.5 ML ML ONE ×2 (16:20→17:58)
[2021-01-05] MEDS ORDERED: POTASSIUM 25 MEQ EFFERV TAB ONE (16:57)
[2021-01-05] MEDS ORDERED: MAGNESIUM SULFATE 1 gm IVPB 1 GM/100 ML BAG IV ONE (16:58)
[2021-01-05 17:17] LABS: Urine Blood Negative (Negative); Urine Glucose 2+ (Negative); Urine Protein Negative (Negative); Urine pH 5.5 (5.0-7.0)
[2021-01-05 18:26] LABS: Urine Bacteria 20-50 /HPF (<20); Urine RBC <5 /HPF (NONE SEEN); Urine Yeast PRESENT (NONE SEEN)
[2021-01-05 18:27] LABS: Urine Yeast with Hyphae PRESENT
--- NOTE | 2021-01-05 18:31 | ER ---
Nurse's Notes [facility] Name: Kyler Rushing Age: 75 yrs Sex: Female : 1945 Arrival Date: 01/05/2021 Time: 14:21 Bed 24 Private MD: Diagnosis: Diabetes mellitus due to underlying condition with hyperglycemia Presentation: 01/05 14:22 Chief complaint: EMS states: PT with NIDDM, taking metformin daily. Daughter reports ca1 BGL high at 500s. Upon arrival on scene pt BGL 360 with ketones. Last BGL 393 with Ketones. IV 20G LFA, HX of CVA with L sided deficits noted. No complaints at this time. Coronavirus screen: Client denies travel out of the [place] in the last 14 days. At this time, the client does not indicate any symptoms associated with coronavirus-19. Ebola Screen: Patient negative for fever greater than or equal to 101.5 degrees Fahrenheit, and additional compatible Ebola Virus Disease symptoms Patient denies exposure to infectious person. Patient denies travel to an Ebola-affected area in the 21 days before illness onset. No symptoms or risks identified at this time. Initial Sepsis Screen: Does the patient meet any 2 criteria? No. Patient's initial sepsis screen is negative. Does the patient have a suspected source of infection? No. Patient's initial sepsis screen is negative. Risk Assessment: Do you want to hurt yourself or someone else? Patient reports no desire to harm self or others. Onset of symptoms was January 05, 2021. 14:22 Method Of Arrival: EMS: [facility] ca1 14:22 Acuity: TOVA 3 ca1 Triage Assessment: 14:25 General: Appears in no apparent distress. comfortable, Behavior is calm, cooperative, ca1 appropriate for age. Pain: Denies pain. EENT: No signs and/or symptoms were reported regarding the EENT system. Neuro: Level of Consciousness is awake, alert, obeys commands, Oriented to person, place, time, situation. Cardiovascular: Heart tones S1 S2 present Capillary refill < 3 seconds Patient's skin is warm and dry. Rhythm is sinus rhythm. Respiratory: Airway is patent Respiratory effort is even, unlabored, Respiratory pattern is regular, symmetrical, Breath sounds are clear bilaterally. GI: Abdomen is round non-distended, Bowel sounds present X 4 quads. Abd is soft and non tender X 4 quads. : No signs and/or symptoms were reported regarding the genitourinary system. Derm: Skin is intact, is healthy with good turgor, Skin is pink, warm \T\ dry. Musculoskeletal: Circulation, motion, and sensation intact. Capillary refill < 3 seconds. Historical: - Allergies: 15:48 No Known Allergies; ca1 - Home Meds: 15:48 atorvastatin 40 mg Oral tab 1 tab nightly [Active]; esomeprazole magnesium 40 mg Oral ca1 cpDR 1 cap once daily [Active]; isosorbide mononitrate 30 mg Oral Tb24 1 tab once daily [Active]; levothyroxine 200 mcg tab 1 tab once daily [Active]; Plavix 75 mg Oral tab 1 tab once daily [Active]; metformin 500 mg Oral Tb24 1 tab once daily [Active]; - PMHx: 15:48 Diabetes - IDDM; High Cholesterol; Hypertension; ca1 - Immunization history:: Adult Immunizations up to date, Client reports receiving the 2nd dose of the Covid vaccine, Client reports receiving the 1st dose of the Covid vaccine, Pneumococcal vaccine is up to date, Flu vaccine is up to date. - Social history:: Smoking status: Patient denies any tobacco usage or history of. Screenin:35 Abuse screen: Denies threats or abuse. Denies injuries from another. Nutritional ca1 screening: No deficits noted. Tuberculosis screening: No symptoms or risk factors identified. Fall Risk Secondary diagnosis (15 points) impaired mobility, IV access (20 points). Ambulatory Aid- Crutches/Cane/Walker (15 pts). Total Coronado Fall Scale indicates High Risk Score (45 or more points). Fall prevention measures have been instituted. Side Rails Up X 2 Family Present and informed to notify staff if the need to leave the bedside As available patient and family educated on Fall Prevention Program and Strategies. Assessment: 14:35 Reassessment: see triage notes. ca1 15:50 Reassessment: Patient appears in no apparent distress at this time. Patient and/or ca1 family updated on plan of care and expected duration. Pain level reassessed. Patient is alert, oriented x 3, equal unlabored respirations, skin warm/dry/pink. 16:50 Reassessment: Patient appears in no apparent distress at this time. Patient and/or ca1 family updated on plan of care and expected duration. Pain level reassessed. Patient is alert, oriented x 3, equal unlabored respirations, skin warm/dry/pink. 17:55 Reassessment: Patient appears in no apparent distress at this time. Patient and/or ca1 family updated on plan of care and expected duration. Pain level reassessed. Patient is alert, oriented x 3, equal unlabored respirations, skin warm/dry/pink. 18:55 Reassessment: Patient appears in no apparent distress at this time. Patient is alert, ca1 oriented x 3, equal unlabored respirations, skin warm/dry/pink. Vital Signs: 14:22 BP 117 / 62; Pulse 93; Resp 18; Temp 98.4(O); Pulse Ox 98% on R/A; Weight 91.63 kg (R); ca1 Height 5 ft. 2 in. (157.48 cm) (R); Pain 0/10; 15:50 BP 121 / 68; Pulse 83; Resp 18 S; Pulse Ox 100% on R/A; ca1 16:50 BP 117 / 84; Pulse 3; Resp 16 S; Pulse Ox 99% on R/A; ca1 17:50 BP 116 / 74; Pulse 91; Resp 15 S; Pulse Ox 100% on R/A; ca1 18:55 BP 121 / 80; Pulse 79; Resp 19 S; Pulse Ox 95% on R/A; ca1 20:00 BP 124 / 82; Pulse 80; Resp 18; Temp 97.8; Pulse Ox 99% ; Pain 0/10; cr4 14:22 Body Mass Index 36.95 (91.63 kg, 157.48 cm) ca1 ED Course: 14:21 Patient arrived in ED. ds1 14:25 Arm band placed on right wrist. ca1 14:26 Nigel Rodrigez PA is PHCP. cp 14:26 Matthew Nair MD is Attending Physician. cp 14:35 Patient has correct armband on for positive identification. Placed in gown. Bed in low ca1 position. Call light in reach. Side rails up X2. monitor and storage bin tender on. Pulse ox on. NIBP on. Warm blanket given. 14:36 Joann Nevarez RN is Primary Nurse. ca1 15:00 Maintain EMS IV. Dressing intact. Good blood return noted. Site clean \T\ dry. Gauge \T\ ca 1 site: 20G LFA. 15:47 Triage completed. ca1 19:10 Report given to ANDRE Willams. ca1 20:00 No provider procedures requiring assistance completed. IV discontinued, intact, cr4 bleeding controlled, No redness/swelling at site. Administered Medications: 14:53 Drug: NS 0.9% 250 ml Route: IV; Rate: bolus; Site: left forearm; ca1 16:00 Follow up: Response: No adverse reaction; IV Status: Completed infusion; IV Intake: ca1 250ml 16:06 Drug: NovoLIN R (insulin regular human) 7 units {Co-Signature: ja1 (Home Salazar RN).} ca1 Route: Sub-Q; Site: right lower abdomen; 17:00 Follow up: Response: No adverse reaction; Blood sugar is lowered ca1 16:45 Drug: Magnesium Sulfate 1 grams Route: IVPB; Infused Over: 1 hrs; Site: left forearm; ca1 17:45 Follow up: Response: No adverse reaction; IV Status: Completed infusion ca1 16:45 Drug: Potassium Effervescent Tablet 25 mEq Route: PO; ca1 17:30 Follow up: Response: No adverse reaction ca1 17:43 Drug: Insulin Regular Human 5 units {Co-Signature: ss (Suad Reed RN).} Route: IVP; ca1 Site: left forearm; 19:21 Follow up: Response: No adverse reaction; Blood sugar is lowered ca1 19:22 Follow up: Response: No adverse reaction; Blood sugar is lowered ca1 17:43 Drug: NS 0.9% 250 ml Route: IV; Rate: 250 ml/hr; Site: left forearm; ca1 18:30 Follow up: Urine output 250 ml; Response: No adverse reaction; IV Status: Completed ca1 infusion 19:25 Drug: DiFLUcan (fluconazole) 200 mg Route: PO; cr4 20:00 Follow up: Response: No adverse reaction cr4 Intake: 16:00 IV: 250ml; Total: 250ml. ca1 Output: 18:30 Urine: 250ml; Total: 250ml. ca1 Outcome: 18:31 Discharge ordered by . cp 20:00 Patient left the ED. cr4 20:00 Discharged to home via wheelchair, with family. cr4 20:00 Discharge instructions given to patient, family. 20:00 Condition: good cr4 Signatures: Gabriella Polanco ds1 Li Melendez RN RN cr4 Nigel Rodrigez PA PA cp Acob, Cheryl, RN RN ca1 Home Salazar RN ja1 Suad Reed RN ss Corrections: (The following items were deleted from the chart) 01/06 06:18 06:16 Condition: good cr4 cr4
--- NOTE | 2021-01-05 18:31 | EDPHYS ---
Physician Documentation [facility] Name: Kyler Rushing Age: 75 yrs Sex: Female : 1945 Arrival Date: 01/05/2021 Time: 14:21 Bed 24 Private MD: ED Physician Matthew Nair HPI: 01/05 14:40 This 75 yrs old Black Female presents to ER via Unassigned with complaints of High cp Blood Sugar. 14:40 The patient or guardian reports hyperglycemia. cp 14:40 Onset: The symptoms/episode began/occurred gradually, and became worse today. cp 14:40 Associated signs and symptoms: Pertinent negatives: vomiting, altered mental status. cp Current symptoms: In the emergency department the patient's symptoms have improved, mildly. Daughter reports patient takes Metformin 500 mg daily and that primary physician was contacted today and patient is to increase Metformin to twice daily. Historical: - Allergies: 15:48 No Known Allergies; ca1 - Home Meds: 15:48 atorvastatin 40 mg Oral tab 1 tab nightly [Active]; esomeprazole magnesium 40 mg Oral ca1 cpDR 1 cap once daily [Active]; isosorbide mononitrate 30 mg Oral Tb24 1 tab once daily [Active]; levothyroxine 200 mcg tab 1 tab once daily [Active]; Plavix 75 mg Oral tab 1 tab once daily [Active]; metformin 500 mg Oral Tb24 1 tab once daily [Active]; - PMHx: 15:48 Diabetes - IDDM; High Cholesterol; Hypertension; ca1 - Immunization history:: Adult Immunizations up to date, Client reports receiving the 2nd dose of the Covid vaccine, Client reports receiving the 1st dose of the Covid vaccine, Pneumococcal vaccine is up to date, Flu vaccine is up to date. - Social history:: Smoking status: Patient denies any tobacco usage or history of. ROS: 14:45 Constitutional: Negative for body aches, chills, fever, poor PO intake. cp 14:45 Eyes: Negative for injury, pain, redness, and discharge. cp 14:45 Cardiovascular: Negative for chest pain, edema, palpitations. 14:45 Respiratory: Negative for cough, shortness of breath, wheezing. 14:45 Abdomen/GI: Negative for abdominal pain, nausea, vomiting, and diarrhea. 14:45 : Negative for urinary symptoms. 14:45 Neuro: Negative for altered mental status, headache, syncope. 14:45 All other systems are negative. Exam: 14:50 Constitutional: The patient appears in no acute distress, alert, awake, cp non-diaphoretic, non-toxic, well developed, well nourished. 14:50 Head/Face: Normocephalic, atraumatic. cp 14:50 Eyes: Periorbital structures: appear normal, Pupils: equal, round, and reactive to light and accomodation, Sclera: no appreciated abnormality, Lids and lashes: appear normal, bilaterally. 14:50 ENT: External ear(s): are unremarkable, Nose: is normal, Mouth: Lips: moist, Oral mucosa: moist, Posterior pharynx: Airway: no evidence of obstruction, patent. 14:50 Neck: ROM/movement: is normal, is supple, without pain, no range of motions limitations. 14:50 Chest/axilla: Inspection: normal, Palpation: is normal, no crepitus, no tenderness. 14:50 Cardiovascular: Rate: normal, Rhythm: regular, Edema: is not appreciated, JVD: is not appreciated. 14:50 Respiratory: the patient does not display signs of respiratory distress, Respirations: normal, no use of accessory muscles, no retractions, labored breathing, is not present, Breath sounds: are clear throughout, no decreased breath sounds, no stridor, no wheezing. 14:50 Abdomen/GI: Inspection: abdomen appears normal, Palpation: abdomen is soft and non-tender, in all quadrants. 14:50 Neuro: Orientation: to person, place \T\ time. Mentation: able to follow commands, slow to respond. 15:03 ECG was reviewed by the Attending Physician. cp Vital Signs: 14:22 BP 117 / 62; Pulse 93; Resp 18; Temp 98.4(O); Pulse Ox 98% on R/A; Weight 91.63 kg (R); ca1 Height 5 ft. 2 in. (157.48 cm) (R); Pain 0/10; 15:50 BP 121 / 68; Pulse 83; Resp 18 S; Pulse Ox 100% on R/A; ca1 16:50 BP 117 / 84; Pulse 3; Resp 16 S; Pulse Ox 99% on R/A; ca1 17:50 BP 116 / 74; Pulse 91; Resp 15 S; Pulse Ox 100% on R/A; ca1 18:55 BP 121 / 80; Pulse 79; Resp 19 S; Pulse Ox 95% on R/A; ca1 20:00 BP 124 / 82; Pulse 80; Resp 18; Temp 97.8; Pulse Ox 99% ; Pain 0/10; cr4 14:22 Body Mass Index 36.95 (91.63 kg, 157.48 cm) ca1 MDM: 14:27 Patient medically screened. cp 15:00 Differential diagnosis: DKA, hyperglycemia, sepsis. cp 18:30 Data reviewed: vital signs, nurses notes, lab test result(s), EKG. 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 Response to treatment: the patient's symptoms have markedly improved after treatment, and as a result, I will discharge patient. ED course: VSS. Blood glucose improved with meds. Will discharge to home for continued monitoring. 01/05 14:35 Order name: Urine Microscopic Only; Complete Time: 18:31 cp 01/05 18:31 Interpretation: Normal except: UBACT 20-50; SQEPI 5-10; YEAST PRESENT. cp 01/05 14:35 Order name: Ketone, Serum; Complete Time: 16:04 01/05 14:35 Order name: Basic Metabolic Panel; Complete Time: 16:04 01/05 16:04 Interpretation: Normal except: K 3.4; CL 108; GLUC 400; GFR 71; CA 8.0. cp 01/05 14:35 Order name: CBC with Diff; Complete Time: 15:34 cp 01/05 15:34 Interpretation: Normal except: WBC 4.80; RBC 3.05; HGB 9.4; HCT 28.2; RDW 16.4; SAMANTHA% cp 76.5; LYM% 14.2. 01/05 14:35 Order name: LFT's; Complete Time: 16:04 cp 01/05 15:32 Interpretation: Normal except: AST 10; TP 5.7; ALB 2.5; A/G 0.8. 01/05 14:35 Order name: Magnesium; Complete Time: 16:04 01/05 15:32 Interpretation: Abnormal: MG 1.6. 01/05 14:35 Order name: PT-INR; Complete Time: 16:04 01/05 14:35 Order name: Troponin (emerg Dept Use Only); Complete Time: 16:04 01/05 15:33 Interpretation: TROPED 0.02; Reviewed. 01/05 14:35 Order name: Lipase; Complete Time: 16:04 01/05 14:48 Order name: Glucose, Ancillary Testing; Complete Time: 15:17 EDMS 01/05 16:17 Order name: Glucose, Ancillary Testing; Complete Time: 17:08 EDDC 01/05 17:08 Interpretation: Reviewed. 01/05 17:17 Order name: Urine Dipstick-Ancillary; Complete Time: 17:25 EDMS 01/05 17:25 Interpretation: Normal except: UGLUC 2+; UKET Trace. 01/05 17:37 Order name: Glucose, Ancillary Testing; Complete Time: 18:31 EDDC 01/05 18:27 Order name: Urine Culture EDDC 01/05 14:35 Order name: Urine Dipstick-Ancillary (obtain specimen); Complete Time: 17:23 01/05 14:35 Order name: EKG; Complete Time: 14:35 01/05 14:35 Order name: Cardiac monitoring; Complete Time: 14:53 01/05 14:35 Order name: EKG - Nurse/Tech; Complete Time: 14:53 01/05 14:35 Order name: IV Saline Lock; Complete Time: 14:53 01/05 14:35 Order name: Labs collected and sent; Complete Time: 14:53 01/05 14:35 Order name: O2 Per Protocol; Complete Time: 14:53 01/05 18:41 Order name: Glucose, Ancillary Testing EDDC 01/05 14:35 Order name: O2 Sat Monitoring; Complete Time: 14:53 01/05 17:15 Order name: Accucheck Blood Glucose; Complete Time: 17:26 cp EC:03 Rate is 88 beats/min. Rhythm is regular. VA interval is normal. QRS interval is normal. cp QT interval is normal. Interpreted by me. Reviewed by me. Administered Medications: 14:53 Drug: NS 0.9% 250 ml Route: IV; Rate: bolus; Site: left forearm; ca1 16:00 Follow up: Response: No adverse reaction; IV Status: Completed infusion; IV Intake: ca1 250ml 16:06 Drug: NovoLIN R (insulin regular human) 7 units {Co-Signature: jaSimon (Home Salazar RN).} ca1 Route: Sub-Q; Site: right lower abdomen; 17:00 Follow up: Response: No adverse reaction; Blood sugar is lowered ca1 16:45 Drug: Magnesium Sulfate 1 grams Route: IVPB; Infused Over: 1 hrs; Site: left forearm; ca1 17:45 Follow up: Response: No adverse reaction; IV Status: Completed infusion ca1 16:45 Drug: Potassium Effervescent Tablet 25 mEq Route: PO; ca1 17:30 Follow up: Response: No adverse reaction ca1 17:43 Drug: Insulin Regular Human 5 units {Co-Signature: ss (Suad Reed RN).} Route: IVP; ca1 Site: left forearm; 19:21 Follow up: Response: No adverse reaction; Blood sugar is lowered ca1 19:22 Follow up: Response: No adverse reaction; Blood sugar is lowered ca1 17:43 Drug: NS 0.9% 250 ml Route: IV; Rate: 250 ml/hr; Site: left forearm; ca1 18:30 Follow up: Urine output 250 ml; Response: No adverse reaction; IV Status: Completed ca1 infusion 19:25 Drug: DiFLUcan (fluconazole) 200 mg Route: PO; cr4 20:00 Follow up: Response: No adverse reaction cr4 Disposition: 01/06 08:04 Co-signature as Attending Physician, Matthew Nair MD I agree with the assessment and kdr plan of care. Disposition: 01/05/21 18:31 Discharged to Home. Impression: Diabetes mellitus due to underlying condition with hyperglycemia. - Condition is Stable. - Discharge Instructions: Form - Daily Diabetes Record, Blood Glucose Monitoring, Adult, Diabetes Mellitus and Food. - Medication Reconciliation Form, Thank You Letter, Antibiotic Education, Prescription Opioid Use form. - Follow up: Private Physician; When: 1 - 2 days; Reason: Recheck today's complaints. - Problem is new. - Symptoms have improved. Signatures: Dispatcher MedHo EDMatthew Gloria MD MD kdr Ruiz, Claudia RN RN cr4 Nigel Rodrigez PA PA cp Joann Nevarez, RN RN ca1 Home Salazar RN ja1 Suad Reed RN ss Corrections: (The following items were deleted from the chart) 01/05 15:02 14:35 Prince ordered. cp ca1 16:04 15:32 Normal except: K 3.4; CL 108; GLUC 400; GFR 71. cp cp 20:00 18:31 01/05/2021 18:31 Discharged to Home. Impression: Diabetes mellitus due to cr4 underlying condition with hyperglycemia. Condition is Stable. Forms are Medication Reconciliation Form, Thank You Letter, Antibiotic Education, Prescription Opioid Use. Follow up: Private Physician; When: 1 - 2 days; Reason: Recheck today's complaints. Problem is new. Symptoms have improved. cp
[2021-01-05] MEDS ORDERED: FLUCONAZOLE 100 MG TAB ONE (19:36)
[2021-01-05 20:14] VITALS: TEMP 98.4
[2021-01-05 20:19] VITALS: BP 121/80; O2SAT 95
--- NOTE | 2021-01-07 07:27 | EKG ---
Test Date: 2021-01-05 Test Time: 14:56:46 Pricing Actuary: OLGA MEASUREMENT RESULTS: Intervals: Rate: 88 NC: 112 QRSD: 74 QT: 374 QTc: 452 [place]: P: 51 NC: 112 QRS: 11 T: -8 INTERPRETIVE STATEMENTS: Normal sinus rhythm Normal ECG Compared to ECG 01/01/2021 14:32:47 Sinus tachycardia no longer present Electronically Signed On 01-07-21 07:22:39 CDT by Xavier Eugene
== END 2021-01-05 20:00 | disposition home or self-care (01) ==
LOC: ER 14:20
DX: E11.65 Type 2 diabetes mellitus with hyperglycemia (principal); I10 Essential (primary) hypertension; E78.00 Pure hypercholesterolemia, unspecified; Z79.01 Long term (current) use of anticoagulants
CPT/HCPCS: 96365; 96367; 96361; 93005; 87088; 85025; 87086; 80048; 36415; 82010; 83735; 85610; 82947 ×4; 80076; 84484; 83690; 96375; 96372; 99284; J3475; J7050 ×2; 81003; 81015

== ENCOUNTER 2021-02-15 14:39 | Inpatient (IN) | payer MEDICARE ==
--- OUTSIDE RECORDS SUMMARY | 2021-02-15 14:45 | XMS REPORT | Continuity of Care Document ---
:1945 Author Organization [facility] t Address [address] [place] [address] Care Team Providers Name Role Phone Erica CHIU Primary Care Physician Brigido CHIU Attending Clinician Payers Payer Name Policy Type Policy Effective Date Expiration Date Sour ce Number [facility] [id number] 2020 [place] MEDICARE(WELLME 00:00:00 Eveline Juarez) [facility] MEDICARE ADVANTAGE [id number]/ 09/2019-Present MO Problems Condition Condition Condition Status Onset Resolution Last Treating Co mments Source Name Details Category Date Date Treatment Clinician Date Dementia Dementia Problem Active [place] 6-10 da 00:00: Medical 00 Group Hypothyroi Hypothyroi Problem Active [facility] [place] dism dism 706 da 00:00: Medical 00 Group Type 2 Type 2 Problem Active [place] diabetes Diabetes 03-14 da mellitus Mellitus 00:00: Medica l 00 [...] Date Stop Date Source Natural mother Hypertension [facility] [facility] Natural mother Heart disease [place] [facility] Natural father Diabetes [facility] thodist Natural father Heart disease [place] [facility] Natural father Hypertension [facility] Social History Social Habit Start Date Stop Date Quantity Comments [facility] Std Drinks History [facility] Meth odist Alcohol Binge Tobacco use and 2020-04-27 2020-04-27 Never used [facility] Robert ethodist exposure 00:00:00 00:00:00 Alcohol intake 2020-04-27 2020-04-27 Lifetime [facility] Me thodist 00:00:00 00:00:00 non-drinker (finding) History [facility] 2020-04-27 2020-04-27 1 [place] Meth odist Alcohol Frequency 00:00:00 00:00:00 [birth year] [place] Robert ethodist 00:00:00 00:00:00 Smoking Status Start Date Stop Date Source Former Smoker [facility] Never smoker [facility] Methodis t Medications Ordered Filled Start Stop [...] A DAY. BY MOUTH ONCE A DAY. glimepiride glimepiride No glimepirid [place] 4 mg tablet 4 mg tablet e 4 mg da TAKE ONE TAKE ONE tablet Medic al (1) (1) TAKE ONE Group TABLET(S) TABLET(S) (1) BY MOUTH BY MOUTH TABLET(S) ONCE A DAY. ONCE A DAY. BY [...] A DAY A DAY ONCE A DAY Levemir Levemir No 10unit( Q1D Levemir [place] FlexTouch FlexTouch s) FlexTouch da U-100 U-100 U-100 Medical Insulin 100 Insulin 100 Insulin Group unit/mL (3 unit/mL (3 100 mL) mL) unit/mL (3 subcutaneou subcutaneou mL) s pen s pen subcutaneo Inject 10 Inject 10 us pen units every units every Inject 10 day by day by units subcutaneou subcutaneou every day s route at s route at by bedtime for bedtime for subcutaneo 30 days. 30 days. us route at bedtime for 30 days. levothyroxi levothyroxi No levothyrox [place] ne 200 mcg ne 200 mcg ine 200 da tablet TAKE tablet TAKE mcg tablet Medical ONE (1) ONE (1) TAKE ONE Group TABLET(S) TABLET(S) (1) BY MOUTH BY MOUTH TABLET(S) EVERY DAY. EVERY DAY. BY MOUTH EVERY DAY. metformin metformin No metformin [place] 500 mg 500 mg 500 mg da tablet TAKE tablet TAKE tablet Medical ONE (1) ONE (1) TAKE ONE Group TABLET(S) TABLET(S) (1) BY MOUTH BY MOUTH TABLET(S) BID DAY. BID DAY. BY MOUTH BID DAY. nitroglycer nitroglycer No nitroglyce [place] in 0.4 [...] IN 15 MINS. 15 MINS. 15 MINS. pantoprazol pantoprazol No pantoprazo [place] e 40 mg e 40 mg le 40 mg da tablet,eunice tablet,eunice tablet,del Medical yed release yed release ayed G roup TAKE ONE TAKE ONE release (1) (1) TAKE ONE TABLET(S) TABLET(S) (1) BY MOUTH BY MOUTH TABLET(S) ONCE A DAY. ONCE A DAY. BY MOUTH ONCE A DAY. sucralfate sucralfate No sucralfate [place] 1 gram 1 gram 1 gram da tablet TAKE tablet TAKE tablet Medical ONE (1) ONE (1) TAKE ONE Group TABLET(S) TABLET(S) (1) BY MOUTH BY MOUTH TABLET(S) BEFORE BEFORE BY MOUTH MEALS AND MEALS AND BEFORE AT BEDTIME. AT BEDTIME. MEALS AND AT BEDTIME. Immunizations Ordered Immunization Filled Immunization Date Status Commen ts Source Name Name influenza, influenza, 2020-06-17 Completed [place] injectable, injectable, 00:00:00 Medical Grou p quadrivalent quadrivalent influenza, high dose influenza, high 2019-07-15 Completed [place] seasonal dose seasonal 16:23:03 Medical [place] Vital Signs Vital Name Observation Time Observation Value Comments Source BP Diastolic 2021-01-12 00:00:00 74 [facility]Hg[facility] Height 2021-01-12 00:00:00 62 [facility] BP Systolic 2021-01-12 00:00:00 139 mm[Hg[facility] BP Diastolic 2020-11-21 00:00:00 87 mm[Hg] [facility] Height 2020-11-21 00:00:00 62 [in_i] [facility] BMI (Body Mass 2020-11-21 00:00:00 38.8 kg/m2 [facility]) Group BP Systolic 2020-11-21 00:00:00 158 mm[Hg] [facility] Body Weight 2020-11-21 00:00:00 3393 [oz_av] [facility] BP Diastolic 2020-07-11 00:00:00 95 mm[Hg] [facility] Height 2020-07-11 00:00:00 62 [in_i] [facility] BMI (Body Mass 2020-07-11 00:00:00 37.7 kg/m2 [facility] Index) Group BP Systolic 2020-07-11 00:00:00 151 mm[Hg] [facility] Body Weight 2020-07-11 00:00:00 3297 [oz_av] [facility] Height 2020-05-10 00:00:00 62 [in_i] [facility] BMI (Body Mass 2020-05-10 00:00:00 37.9 kg/m2 [facility] Index) Group Body Weight 2020-05-10 00:00:00 3312 [oz_av] [facility] BP Diastolic 2020-04-11 00:00:00 87 mm[Hg] [facility] Height 2020-04-11 00:00:00 62 [in_i] [facility] BMI (Body Mass 2020-04-11 00:00:00 37.9 kg/m2 [facility] Medical Index) Group BP Systolic 2020-04-11 00:00:00 [...] BMI (Body Mass 2020-02-08 00:00:00 41.4 [facility] BP Systolic 2020-02-08 00:00:00 151 mm[Hg] [facility] Body Weight 2020-02-08 00:00:00 3621 [oz_av] [facility] BP Diastolic 2020-01-12 00:00:00 71 mm[Hg] [facility] Height 2020-01-12 00:00:00 62 [in_i] [facility] BMI (Body Mass 2020-01-12 00:00:00 40.6 kg/m2 [facility] Index) Group BP Systolic 2020-01-12 00:00:00 128 mm[Hg] [facility] Body Weight 2020-01-12 00:00:00 222.1 [lb_av] [facility] BP Diastolic 2019-11-04 00:00:00 76 mm[Hg] [facility] Height 2019-11-04 00:00:00 62 [in_i] [facility] BMI (Body Mass 2019-11-04 00:00:00 41.9 kg/m2 [facility] Index) Group BP Systolic 2019-11-04 00:00:00 125 mm[Hg] [facility] Body Weight 2019-11-04 00:00:00 3664 [oz_av] [facility] BP Diastolic 2019-08-17 00:00:00 94 mm[Hg] [facility] Height 2019-08-17 00:00:00 62 [in_i] [facility] BMI (Body Mass 2019-08-17 00:00:00 42.4 kg/m2 [facility] Index) Group BP Systolic 2019-08-17 00:00:00 162 mm[Hg] [facility] Body Weight 2019-08-17 00:00:00 3712 [oz_av] [facility] BP Diastolic 2019-07-15 00:00:00 93 mm[Hg] [facility] Height 2019-07-15 00:00:00 62 [in_i] [facility] BMI (Body Mass 2019-07-15 00:00:00 43.2 kg/m2 [facility] Index) Group BP Systolic 2019-07-15 00:00:00 167 mm[Hg] [facility] Body Weight 2019-07-15 00:00:00 3780 [oz_av] [facility] BP Diastolic 2019-07-02 00:00:00 86 mm[Hg] [facility] Height 2019-07-02 00:00:00 62 [in_i] [facility] BMI (Body Mass 2019-07-02 00:00:00 43.5 kg/m2 [facility]) Group BP Systolic 2019-07-02 00:00:00 144 mm[Hg] [facility] Body Weight 2019-07-02 00:00:00 3808 [oz_av] [facility] BP Diastolic 2019-06-08 00:00:00 86 mm[Hg] [facility] Height 2019-06-08 00:00:00 62 [in_i] [facility] BMI (Body Mass 2019-06-08 00:00:00 42.1 kg/m2 [facility] Index) Group BP Systolic 2019-06-08 00:00:00 144 mm[Hg] [facility] Body Weight 2019-06-08 00:00:00 3680 [oz_av] [facility] BP Diastolic 2019-06-02 00:00:00 91 mm[Hg] [facility] Height 2019-06-02 00:00:00 62 [in_i] [facility] BMI (Body Mass 2019-06-02 00:00:00 41.9 kg/m2 [facility]) Group BP Systolic 2019-06-02 00:00:00 145 mm[Hg] [facility] Body Weight 2019-06-02 00:00:00 3665 [oz_av] [facility] BP Diastolic 2019-04-14 00:00:00 76 mm[Hg] [facility] Height 2019-04-14 00:00:00 62 [in_i] [facility] BMI (Body Mass 2019-04-14 00:00:00 43 kg/m2 [facility]) Group BP Systolic 2019-04-14 00:00:00 134 mm[Hg] [facility] Body Weight 2019-04-14 00:00:00 3760 [oz_av] [facility] BP Diastolic 2019-02-03 00:00:00 80 mm[Hg] [facility] Height 2019-02-03 00:00:00 62 [in_i] [facility] BMI (Body Mass 2019-02-03 00:00:00 43.3 kg/m2 [facility]) Group BP Systolic 2019-02-03 00:00:00 143 mm[Hg] [facility] Body Weight 2019-02-03 00:00:00 236.9 [lb_av] [facility] Height 2018-10-30 00:00:00 62 [in_i] [facility] BMI (Body Mass 2018-10-30 00:00:00 44.8 kg/m2 [facility]) Group BP Systolic 2018-10-30 00:00:00 152 mm[Hg] [facility] Body Weight 2018-10-30 00:00:00 3923 [oz_av] [facility] Systolic blood 2020-04-27 08:59:00 140 mm[Hg] [place] [facility] pressure Diastolic blood 2020-04-27 08:59:00 74 mm[Hg] [place] [facility] pressure Heart rate 2020-04-27 08:59:00 60 /min [facility] Body temperature 2020-04-27 08:59:00 35.94 [place]i [place] [facility] Body weight 2020-04-27 08:59:00 93.441 kg [facility] Procedures Procedure Date / Time Performing Source Performed Clinician unlisted imaging order 2020-03-31 [facility] 00:00:00 Medical Group XR, ribs, bilateral 2020-03-31 [facility] 00:00:00 Medical Group MRI, brain, w/o contrast 2019-07-02 [place] [facility] 00:[facility] US, duplex, carotid artery 2019-07-02 [place] [facility] 00:00:00 [facility] Group US, echocardiogram, transthoracic, 2019-07-02 [place] complete, w/ color flow 00:00:00 Medical Group holter monitor 2019-07-02 [place] 00:00:00 Medical Group holter monitor 2019-06-29 [place] 00:00:00 Medical Group MAMMO, screening, digital, 2019-06-02 [place] bilateral 00:00:00 Medical Group MAMMO, screening, digital, 2019-04-14 [place] bilateral 00:00:00 Medical Group Thyroid Surgery 1979-09-09 [facility] 00:00:00 Medical Group Hysterectomy [facility] Shoulder Joint Surgery [facility] Appendectomy [facility] Eye Surgery Procedure [facility] Esophagogastroduodenoscopy (Surg) [facility] Plan of Care Planned Activity Planned Date Details Comments Source Future Scheduled 2021-04-09 INFLUENZA VACCINE [place] [facility] 00:00:00 [code = INFLUENZA VACCINE] Future Scheduled 2011 65+ PNEUMOCOCCAL [place] [facility] Test 00:00:00 VACCINE (1 of 1 - PPSV23) [code = 65+ PNEUMOCOCCAL VACCINE (1 of 1 - PPSV23)] Future Scheduled 1996 [facility]:00 SCREENING [code = BREAST CANCER SCREENING] Future Scheduled 1996 [facility] 00:00:00 [code = COLONOSCOPY SCREENING] Future Scheduled 1996 SHINGLES VACCINES (#1) [place] [facility] Test 00:00:00 [code = SHINGLES VACCINES (#1)] Future Scheduled 1964 Hepatitis C screening [place] [facility] Test 00:00:00 (procedure) [code = 776692843] Future Scheduled 1958 COVID-19 VACCINE (1) [place] [facility] Test 00:00:00 [code = COVID-19 VACCINE (1)] Encounters Start End Encounter Admission Attending Care Care Encounter Source Date/Time Date/Time Type Type Clinicians Facility Department ID 2021-01-12 2021-01-12 George C[place] - [id number] [place] 00:00:00 00:00:00 Dallas Borrego Medical MD: [address] [facility] [address], [place] [address] , Ph. 2020-11-21 2020-11-21 George CISSE [place] - [id number] [place] 00:00:00 00:00:00 Dallas Borrego MD: [address] [facility] [address], [place] [address] , Ph. 2020-07-11 2020-07-11 George MM [place] - [id number] [place] 00:00:00 00:00:00 Dallas Borrego Medical MD: [address] [place] [address] [address], [place] [address] , Ph. 2020-05-10 2020-05-10 George CISSEG [place] - [id number] [place] 00:00:00 00:00:00 Dallas Borrego Medical MD: [address] [place] [address] [address], [place] [address] , Ph. 2020-04-27 2020-04-27 Outpatient [facility] [id number] [facility] 00:00:00 00:00:[address] 2020-04-11 2020-04-11 George CISSE [place] - [id number] [place] 00:00:00 00:00:00 Dallas Borrego MD: [address] [place] [address] [address], [place] [address] , Ph. 2020-03-31 2020-03-31 Vanessa CISSE [place] - [id number] [facility] 00:00:00 00:00:00 Discovery onofre Chandra SANITARY CHEMIST: [address] [place] [address] , Ph. 2020-02-08 2020-02-08 George CISSE [place] - [id number] [place] 00:00:00 00:00:00 Dallas Borrego MD: [address] [place] [address], [place] [address] , Ph. 2020-01-12 2020-01-12 Fede CISSE [place] - [id number] [facility] 00:00:00 00:00:00 Alexandru Sanchez MD: Medical Medica l [address] [place] [address] General [address], [place] [address] , Ph. [phone] 2020-01-11 2020-01-11 Mary [facility] [place] - [id number] [facility] 00:00:00 00:00:00 Dallas Cabrera Medical SANITARY CHEMIST: [address] [facility] [address], [place] [address] , Ph. 2020-01-04 2020-01-04 George [facility] [place] - [id number] [place] 00:00:00 00:00:00 Dallas Borrego Medical MD: [address] [place] [address] [address], [place] [address] , Ph. 2019-11-04 2019-11-04 George CISSE [place] - [id number] [place] 00:00:00 00:00:00 Dallas Borrego MD: [address] [place] [address] [address], [place] [address] , Ph. 2019-08-17 2019-08-17 George CISSE [place] - [id number] [place] 00:00:00 00:00:00 Dallas Borrego MD: [address] [place] [address] [address], [place] [address] , Ph. 2019-07-15 2019-07-15 George CISSE [place] - [id number] [place] 00:00:00 00:00:00 Dallas Borrego MD: [address] [facility] [address], [place] [address] , Ph. 2019-07-02 2019-07-02 George CISSE [place] - [id number] [place] 00:00:00 00:00:00 Dallas Borrego MD: [address] [place] [address] [address], [place] [address] , Ph. 2019-06-08 2019-06-08 George CISSE [place] - [id number] [place] 00:00:00 00:00:00 Dallas Borrego MD: [address] [place] [address] [address], [place] [address] , Ph. 2019-06-02 2019-06-02 George CISSE [place] - [id number] [place] 00:00:00 00:00:00 Dallas Borrego MD: [address] [place] [address] [address], [place] [address] , Ph. 2019-04-14 2019-04-14 George CISSE [place] - [id number] [place] 00:00:00 00:00:00 Dallas Borrego MD: [address] [place] [address] [address], [place] [address] , Ph. 2019-04-08 2019-04-08 George CISSE [place] - [id number] [place] 00:00:00 00:00:00 Dallas Borrego MD: [address] [place] [address] [address], [place] [address] , Ph. 2019-02-03 2019-02-03 Randell CISSE [place] - [id number] [facility] 00:00:00 00:00:00 Discovery onofre Blum MD: [address] [place] [address] [address], [place] [address] , Ph. 2018-10-30 2018-10-30 George CISSE [place] - [id number] [place] 00:00:00 00:00:00 Dallas Borrego MD: [address] [place] [address] [address], [place] [address] , Ph. Results Test Description Test Time [...] L MCV [Entitic volume] (test code = 16153-6) 96.2 fL 86-100 mean corpuscular hemoglobin (test [...] Blood (test code = 76.8 % 44.4-80.1 36355-1) Immature granulocytes [#/volume] in Blood (test code = 0.0 K/uL 0.0-0.03 92920-5) lymphocyte% (test code = lymphocyte%) 15.9 % 10.0-50.0 mono % (test code = mono %) 6.0 % 3.6-12.0 eos % (test code = eos %) 0.8 % 0.0-5.4 Basophils/100 leukocytes in Unspecified specimen (test code 0.1 % 0.1-1.2 = 45445-7) Band form neutrophils [#/volume] in Blood (test code = 5.73 K/uL 1.56-6.13 98364-4) Lymphocytes [#/volume] in Unspecified specimen by Automated 1.2 K/u L 1.18-3.74 count (test code = 40747-3) mono # (test code = mono #) 0.45 K/uL 0.24-0.86 eos # (test code = eos #) 0.06 K/uL 0.04-0.36 basophil # (test code = basophil #) 0.01 K/uL 0.01-0.08 NRBC% (test code = NRBC%) 1 /100 WBC 0-0.2 H NRBC# (test code = NRBC#) 0 K/uL [facility] metabolic 2000 panel - Serum or [id number] 03:00:00 Test Item Value Reference Range Interpretation [...] = 7.8 mg/dL 8.8-10.2 L calcium level) [facility] W Auto Differential panel - [id number] 03:00:00 Test Item Value Reference Range Interpretation Comments white blood count (test code = 7.5 K/uL 4.0-11.5 white blood count) red blood count (test code = red 2.90 M/uL 3.80-5.20 L blood count) hemoglobin (test code = 8.9 g/dL 10.5-15.7 L hemoglobin) hematocrit (test code = 27.9 % 34.0-50.0 L hematocrit) MCV [Entitic volume] (test code = 96.2 fL 86-100 32539-8) mean corpuscular hemoglobin (test 30.7 pg 26.2-33.4 [...] 44.4-80.1 leukocytes in Blood (test code = 98352-9) Immature granulocytes [#/volume] 0.0 K/uL 0.0-0.03 in Blood (test code = 68210-5) lymphocyte% (test code = 15.9 % 10.0-50.0 lymphocyte%) mono % (test code = mono %) 6.0 % 3.6-12.0 eos % (test code = eos %) 0.8 % 0.0-5.4 Basophils/100 leukocytes in 0.1 % 0.1-1.2 Unspecified specimen (test code = 69196-2) Band form neutrophils [#/volume] 5.73 K/uL 1.56-6.13 in Blood (test code = 30972-0) Lymphocytes [#/volume] in 1.2 K/uL 1.18-3.74 Unspecified specimen by Automated count (test code = 70730-0) mono # (test code = mono #) 0.45 K/uL 0.24-0.86 eos # (test code = eos #) 0.06 K/uL 0.04-0.36 basophil # (test code = basophil 0.01 K/uL 0.01-0.08 #) NRBC% (test code = NRBC%) 1 /100 WBC 0-0.2 H NRBC# (test code = NRBC#) 0 K/uL [facility] metabolic 2000 panel - Serum or [id number] 03:00:00 Test Item Value Reference Range Interpretation [...] = 7.8 mg/dL 8.8-10.2 L calcium level) [facility] W Auto Differential panel - [id number] 03:00:00 Test Item Value Reference Range Interpretation Comments white blood count (test code = 7.5 K/uL 4.0-11.5 white blood count) red blood count (test code = red 2.90 M/uL 3.80-5.20 L blood count) hemoglobin (test code = 8.9 g/dL 10.5-15.7 L hemoglobin) hematocrit (test code = 27.9 % 34.0-50.0 L hematocrit) MCV [Entitic volume] (test code = 96.2 fL 86-100 80958-7) mean corpuscular hemoglobin (test 30.7 pg 26.2-33.4 [...] 44.4-80.1 leukocytes in Blood (test code = 40437-8) Immature granulocytes [#/volume] 0.0 K/uL 0.0-0.03 in Blood (test code = 77906-6) lymphocyte% (test code = 15.9 % 10.0-50.0 lymphocyte%) mono % (test code = mono %) 6.0 % 3.6-12.0 eos % (test code = eos %) 0.8 % 0.0-5.4 Basophils/100 leukocytes in 0.1 % 0.1-1.2 Unspecified specimen (test code = 66301-7) Band form neutrophils [#/volume] 5.73 K/uL 1.56-6.13 in Blood (test code = 35934-5) Lymphocytes [#/volume] in 1.2 K/uL 1.18-3.74 Unspecified specimen by Automated count (test code = 27908-4) mono # (test code = mono #) 0.45 K/uL 0.24-0.86 eos # (test code = eos #) 0.06 K/uL 0.04-0.36 basophil # (test code = basophil 0.01 K/uL 0.01-0.08 #) NRBC% (test code = NRBC%) 1 /100 WBC 0-0.2 H NRBC# (test code = NRBC#) 0 K/uL [facility] metabolic 2000 panel - Serum or [id number] 03:00:00 Test Item Value Reference Range Interpretation [...] = 7.8 mg/dL 8.8-10.2 L calcium level) [facility] W Auto Differential panel - [id number] 12:59:00 Test Item Value Reference Range Interpretation Comments white blood count (test code = 8.7 K/uL 4.0-11.5 white blood count) red blood count (test code = red 3.00 M/uL 3.80-5.20 L blood count) hemoglobin (test code = 9.1 g/dL 10.5-15.7 L hemoglobin) hematocrit (test code = 28.4 % 34.0-50.0 L hematocrit) MCV [Entitic volume] (test code = 94.7 fL 86-100 01831-5) mean corpuscular hemoglobin (test 30.3 pg 26.2-33.4 [...] 44.4-80.1 leukocytes in Blood (test code = 03405-1) Immature granulocytes [#/volume] 0.0 K/uL 0.0-0.03 H in Blood (test code = 60111-1) lymphocyte% (test code = 12.6 % 10.0-50.0 lymphocyte%) mono % (test code = mono %) 6.0 % 3.6-12.0 eos % (test code = eos %) 0.6 % 0.0-5.4 Basophils/100 leukocytes in 0.2 % 0.1-1.2 Unspecified specimen (test code = 16399-5) Band form neutrophils [#/volume] 6.95 K/uL 1.56-6.13 H in Blood (test code = 55810-6) Lymphocytes [#/volume] in 1.1 K/uL 1.18-3.74 L Unspecified specimen by Automated count (test code = 22625-9) mono # (test code = mono #) 0.52 K/uL 0.24-0.86 eos # (test code = eos #) 0.05 K/uL 0.04-0.36 basophil # (test code = basophil 0.02 K/uL 0.01-0.08 #) NRBC% (test code = NRBC%) 1 /100 WBC 0-0.2 H NRBC# (test code = NRBC#) 0 K/uL [facility] metabolic 2000 panel - Serum or [id number] 12:59:00 Test Item Value Reference Range Interpretation [...] = 7.8 mg/dL 8.8-10.2 L calcium level) [facility] W Auto Differential panel - [id number] 12:59:00 Test Item Value Reference Range Interpretation Comments white blood count (test code = 8.7 K/uL 4.0-11.5 white blood count) red blood count (test code = red 3.00 M/uL 3.80-5.20 L blood count) hemoglobin (test code = 9.1 g/dL 10.5-15.7 L hemoglobin) hematocrit (test code = 28.4 % 34.0-50.0 L hematocrit) MCV [Entitic volume] (test code = 94.7 fL 86-100 82009-6) mean corpuscular hemoglobin (test 30.3 pg 26.2-33.4 [...] 44.4-80.1 leukocytes in Blood (test code = 40134-4) Immature granulocytes [#/volume] 0.0 K/uL 0.0-0.03 H in Blood (test code = 48323-8) lymphocyte% (test code = 12.6 % 10.0-50.0 lymphocyte%) mono % (test code = mono %) 6.0 % 3.6-12.0 eos % (test code = eos %) 0.6 % 0.0-5.4 Basophils/100 leukocytes in 0.2 % 0.1-1.2 Unspecified specimen (test code = 05400-4) Band form neutrophils [#/volume] 6.95 K/uL 1.56-6.13 H in Blood (test code = 49262-6) Lymphocytes [#/volume] in 1.1 K/uL 1.18-3.74 L Unspecified specimen by Automated count (test code = 20994-5) mono # (test code = mono #) 0.52 K/uL 0.24-0.86 eos # (test code = eos #) 0.05 K/uL 0.04-0.36 basophil # (test code = basophil 0.02 K/uL 0.01-0.08 #) NRBC% (test code = NRBC%) 1 /100 WBC 0-0.2 H NRBC# (test code = NRBC#) 0 K/uL [facility] metabolic 2000 panel - Serum or [id number] 12:59:00 Test Item Value Reference Range Interpretation [...] = 7.8 mg/dL 8.8-10.2 L calcium level) [facility] W Auto Differential panel - [id number] 12:59:00 Test Item Value Reference Range Interpretation Comments white blood count (test code = 8.7 K/uL 4.0-11.5 white blood count) red blood count (test code = red 3.00 M/uL 3.80-5.20 L blood count) hemoglobin (test code = 9.1 g/dL 10.5-15.7 L hemoglobin) hematocrit (test code = 28.4 % 34.0-50.0 L hematocrit) MCV [Entitic volume] (test code = 94.7 fL 86-100 48186-4) mean corpuscular hemoglobin (test 30.3 pg 26.2-33.4 [...] 44.4-80.1 leukocytes in Blood (test code = 58896-6) Immature granulocytes [#/volume] 0.0 K/uL 0.0-0.03 H in Blood (test code = 40063-4) lymphocyte% (test code = 12.6 % 10.0-50.0 lymphocyte%) mono % (test code = mono %) 6.0 % 3.6-12.0 eos % (test code = eos %) 0.6 % 0.0-5.4 Basophils/100 leukocytes in 0.2 % 0.1-1.2 Unspecified specimen (test code = 62387-4) Band form neutrophils [#/volume] 6.95 K/uL 1.56-6.13 H in Blood (test code = 72948-8) Lymphocytes [#/volume] in 1.1 K/uL 1.18-3.74 L Unspecified specimen by Automated count (test code = 92572-8) mono # (test code = mono #) 0.52 K/uL 0.24-0.86 eos # (test code = eos #) 0.05 K/uL 0.04-0.36 basophil # (test code = basophil 0.02 K/uL 0.01-0.08 #) NRBC% (test code = NRBC%) 1 /100 WBC 0-0.2 H NRBC# (test code = NRBC#) 0 K/uL [facility] metabolic 2000 panel - Serum or [id number] 12:59:00 Test Item Value Reference Range Interpretation [...] = 7.8 mg/dL 8.8-10.2 L calcium level) [facility] - [id number] 10:15:00 Test Item Value Reference Range Interpretation Comments hemoglobin (test code = hemoglobin) 9.4 g/dL 10.5-15.7 hematocrit (test code = hematocrit) 29.4 % 34.0-50.0 [facility] - [id number] 10:15:00 Test Item Value Reference Range Interpretation Comments hemoglobin (test code = hemoglobin) 9.4 g/dL 10.5-15.7 hematocrit (test code = hematocrit) 29.4 % 34.0-50.0 [facility] - [id number] 10:15:00 Test Item Value Reference Range Interpretation Comments hemoglobin (test code = hemoglobin) 9.4 g/dL 10.5-15.7 hematocrit (test code = hematocrit) 29.4 % 34.0-50.0 [facility] Differential panel - [id number] 01:45:00 Test Item Value Reference Range Interpretation Comments white blood count (test code = 8.4 K/uL 4.0-11.5 white blood count) red blood count (test code = red 2.27 M/uL 3.80-5.20 L blood count) hemoglobin (test code = 7.0 g/dL 10.5-15.7 L hemoglobin) hematocrit (test code = 21.8 % 34.0-50.0 L hematocrit) MCV [Entitic volume] (test code = 96.0 fL 86-100 12480-2) mean corpuscular hemoglobin (test 30.8 pg 26.2-33.4 [...] 44.4-80.1 leukocytes in Blood (test code = 55489-2) Immature granulocytes [#/volume] 0.0 K/uL 0.0-0.03 H in Blood (test code = 57011-5) lymphocyte% (test code = 14.9 % 10.0-50.0 lymphocyte%) mono % (test code = mono %) 5.5 % 3.6-12.0 eos % (test code = eos %) 0.7 % 0.0-5.4 Basophils/100 leukocytes in 0.1 % 0.1-1.2 Unspecified specimen (test code = 35193-5) Band form neutrophils [#/volume] 6.55 K/uL 1.56-6.13 H in Blood (test code = 22751-3) Lymphocytes [#/volume] in 1.3 K/uL 1.18-3.74 Unspecified specimen by Automated count (test code = 09159-7) mono # (test code = mono #) 0.46 K/uL 0.24-0.86 eos # (test code = eos #) 0.06 K/uL 0.04-0.36 basophil # (test code = basophil 0.01 K/uL 0.01-0.08 #) NRBC% (test code = NRBC%) 3 /100 WBC 0-0.2 H NRBC# (test code = NRBC#) 0 K/uL [facility]Differential [facility], method unspecified - [id number] 01:45:00NeutrophilsBandLymphocyteMonocyteEosinophilPlatelet EstimateMatagorda Medical GroupBasic metabolic 2000 panel - Serum or Kmcpzc7019-20-28 01:45:00 Test Item Value Reference Range Interpretation [...] = 7.9 mg/dL 8.8-10.2 L calcium level) [facility] W Auto Differential panel - [id number] 01:45:00 Test Item Value Reference Range Interpretation Comments white blood count (test code = 8.4 K/uL 4.0-11.5 white blood count) red blood count (test code = red 2.27 M/uL 3.80-5.20 L blood count) hemoglobin (test code = 7.0 g/dL 10.5-15.7 L hemoglobin) hematocrit (test code = 21.8 % 34.0-50.0 L hematocrit) MCV [Entitic volume] (test code = 96.0 fL 86-100 12119-7) mean corpuscular hemoglobin (test 30.8 pg 26.2-33.4 [...] 44.4-80.1 leukocytes in Blood (test code = 95960-2) Immature granulocytes [#/volume] 0.0 K/uL 0.0-0.03 H in Blood (test code = 01663-4) lymphocyte% (test code = 14.9 % 10.0-50.0 lymphocyte%) mono % (test code = mono %) 5.5 % 3.6-12.0 eos % (test code = eos %) 0.7 % 0.0-5.4 Basophils/100 leukocytes in 0.1 % 0.1-1.2 Unspecified specimen (test code = 72062-4) Band form neutrophils [#/volume] 6.55 K/uL 1.56-6.13 H in Blood (test code = 74769-8) Lymphocytes [#/volume] in 1.3 K/uL 1.18-3.74 Unspecified specimen by Automated count (test code = 71496-9) mono # (test code = mono #) 0.46 K/uL 0.24-0.86 eos # (test code = eos #) 0.06 K/uL 0.04-0.36 basophil # (test code = basophil 0.01 K/uL 0.01-0.08 #) NRBC% (test code = NRBC%) 3 /100 WBC 0-0.2 H NRBC# (test code = NRBC#) 0 K/uL [facility] HospitalDifferential panel, method unspecified - [id number] 01:45:00NeutrophilsBandLymphocyteMonocyteEosinophilPlatelet EstimateMatagoPerry County General HospitalBasic metabolic 2000 panel - Serum or [id number] 01:45:00 Test Item Value Reference Range Interpretation [...] = 7.9 mg/dL 8.8-10.2 L calcium level) [facility] W Auto Differential panel - [id number] 01:45:00 Test Item Value Reference Range Interpretation Comments white blood count (test code = 8.4 K/uL 4.0-11.5 white blood count) red blood count (test code = red 2.27 M/uL 3.80-5.20 L blood count) hemoglobin (test code = 7.0 g/dL 10.5-15.7 L hemoglobin) hematocrit (test code = 21.8 % 34.0-50.0 L hematocrit) MCV [Entitic volume] (test code = 96.0 fL 86-100 53239-8) mean corpuscular hemoglobin (test 30.8 pg 26.2-33.4 [...] 44.4-80.1 leukocytes in Blood (test code = 09675-0) Immature granulocytes [#/volume] 0.0 K/uL 0.0-0.03 H in Blood (test code = 87308-0) lymphocyte% (test code = 14.9 % 10.0-50.0 lymphocyte%) mono % (test code = mono %) 5.5 % 3.6-12.0 eos % (test code = eos %) 0.7 % 0.0-5.4 Basophils/100 leukocytes in 0.1 % 0.1-1.2 Unspecified specimen (test code = 97371-6) Band form neutrophils [#/volume] 6.55 K/uL 1.56-6.13 H in Blood (test code = 05872-0) Lymphocytes [#/volume] in 1.3 K/uL 1.18-3.74 Unspecified specimen by Automated count (test code = 30789-8) mono # (test code = mono #) 0.46 K/uL 0.24-0.86 eos # (test code = eos #) 0.06 K/uL 0.04-0.36 basophil # (test code = basophil 0.01 K/uL 0.01-0.08 #) NRBC% (test code = NRBC%) 3 /100 WBC 0-0.2 H NRBC# (test code = NRBC#) 0 K/uL [facility] HospitalDifferential panel, method unspecified - [id number] 01:45:00NeutrophilsBandLymphocyteMonocyteEosinophilPlatelet EstimateMataG. V. (Sonny) Montgomery VA Medical CenterBasic metabolic 2000 panel - Serum or [id number] 01:45:00 Test Item Value Reference Range Interpretation [...] = 7.9 mg/dL 8.8-10.2 L calcium level) [facility] - [id number] 13:40:00 Test Item Value Reference Range Interpretation Comments Blood type and Crossmatch unit number: panel - Blood (test code [id number] = 05156-9) [place] [id number] 13:40:[facility] 13:40:[place]Results[place] [id number] 13:40:00Results [place] [id number] 13:40:[facility] 13:40:00Results[place] [id number] 13:40:00Results [place] [id number] 13:40:[facility] 13:40:00Results[place] [id number] 13:40:00Results [place] [id number] 13:40:00[facility] 2020-[facility] 13:40:00Results[place] [id number] 13:40:00Results [place] [id number] 13:40:00[facility] 2020-[facility]-15 13:40:00[facility] [place] [address]Pyseubny6494-29-48 13:40:00Results [place] [id number] 13:40:00[facility] 2020-01-15 13:40:00[facility] Eibjctya7611-97-95 13:40:00Results [facility] Ofzrjvpt2077-26-41 13:40:00[facility] 2020-01-15 13:40:00[facility] Iharcwsw3998-78-44 13:40:00Results [facility] Jtkdeijw7691-72-25 13:40:00Results[facility] 2020-01-15 13:40:00Results[facility] Zwhrbton4351-46-75 13:40:00Results [facility] Wqgpvzjw0802-31-42 13:40:00Results[facility] 2020-01-15 13:40:00Results[facility] Dviwbsdf6182-77-16 13:40:00Results [facility] - [id number] 13:40:00 Test Item Value Reference Range Interpretation Comments Blood type and Crossmatch unit number: panel - Blood (test code [id number] = 78358-5) [facility] Bxerhuvo4813-89-29 13:40:00Results[facility] 2020-01-15 13:40:00Results[facility] Kpqpyceq2684-42-09 13:40:00Results [facility] Aapgphqb3160-85-70 13:40:00Results[facility] 2020-01-15 13:40:00Results[facility] Khijacqu9392-49-93 13:40:00Results [facility] Slrpvsyi6944-49-35 13:40:00Results[facility] 2020-01-15 13:40:00Results[facility] Ngcogzmm3744-76-45 13:40:00Results [facility] Hflkpnhi9220-74-92 13:40:00Results[facility] 2020-01-15 13:40:00Results[facility] Wlgzopsl7739-90-13 13:40:00Results [facility] Rlyyqjzu3411-97-15 13:40:00Results[facility] 2020-01-15 13:40:00[facility] Itgoidwt7107-02-31 13:40:00Results [facility] Qvbybbtd1354-55-41 13:40:00Results[facility] 2020-01-15 13:40:00[facility] Crlwgibt8379-59-48 13:40:00Results [facility] Adnjjgir3589-39-61 13:40:00Results[facility] 2020-01-15 13:40:00Results[facility] Jhxarnyz3086-08-16 13:40:00Results [facility] Sdxqotyq0632-31-31 13:40:00Results[facility] 2020-01-15 13:40:00Results[facility] Rnchmsbm4438-37-59 13:40:00Results [facility] Ampzguoj9613-59-78 13:40:00Results[facility] 2020-01-15 13:40:00Results[facility] Iswxgpta2057-16-97 13:40:00Results [facility] - [id number] 13:40:00 Test Item Value Reference Range Interpretation Comments Blood type and Crossmatch unit number: panel - Blood (test code [id number] = 37130-3) [facility] Cgkgdkot2322-15-01 13:40:00Results[facility] 2020-01-15 13:40:00Results[facility] Hczvxtcw6716-01-26 13:40:00Results [facility] Rtfoccqk5469-95-13 13:40:00Results[facility] 2020-01-15 13:40:00Results[facility] Hcnojgvg3192-65-12 13:40:00Results [facility] Afwrlcha9914-70-05 13:40:00Results[facility] 2020-01-15 13:40:00Results[facility] Zfhhcrrc8226-81-06 13:40:00Results [facility] Mxerxsrb8527-54-82 13:40:00Results[facility] 2020-01-15 13:40:00[facility] Hpwvazvx8650-44-41 13:40:00Results [facility] Uqwhokol1256-32-36 13:40:00Results[facility] 2020-01-15 13:40:00Results[facility] Hszpyobx2871-12-60 13:40:00Results [facility] Okerduin6397-41-54 13:40:00Results[facility] 2020-01-15 13:40:00Results[facility] Ncorgdzc6282-70-94 13:40:00Results [facility] Uimanuxj7268-79-30 13:40:00Results[facility] 2020-01-15 13:40:00Results[facility] Xhrfjkfi1598-29-00 13:40:00Results [facility] Wuaaqgqi5347-14-22 13:40:00Results[facility] 2020-01-15 13:40:00Results[facility] Rxlfzeur5694-13-44 13:40:00Results [facility] Extfaqag6105-84-67 13:40:00Results[facility] 2020-01-15 13:40:00Results[facility] Qpnbqdzh3062-65-60 13:40:00Results [facility] - Cplda5953-47-77 09:48:00 Test Item Value Reference Range Interpretation Comments hemoglobin (test code = hemoglobin) 7.6 g/dL 10.5-15.7 hematocrit (test code = hematocrit) 23.5 % 34.0-50.0 [facility] - Aapod6263-57-16 09:48:00 Test Item Value Reference Range Interpretation Comments hemoglobin (test code = hemoglobin) 7.6 g/dL 10.5-15.7 hematocrit (test code = hematocrit) 23.5 % 34.0-50.0 [facility] - Dghcq7099-57-39 09:48:00 Test Item Value Reference Range Interpretation Comments hemoglobin (test code = hemoglobin) 7.6 g/dL 10.5-15.7 hematocrit (test code = hematocrit) 23.5 % 34.0-50.0 [facility]PT/[id number] 08:07:00 Test Item Value Reference Range Interpretation Comments prothrombin time (test code = 10.4 seconds 10.3-12.3 prothrombin time) INR in Blood by Coagulation 0.96 assay (test code = 67904-8) [facility] hujc4934-74-29 08:07:00 Test Item Value Reference Range Interpretation Comments INR in Blood by Coagulation 22.0 seconds 22.5-37.0 L assay (test code = 59865-1) [facility] Indirect antibody screen panel - Blood 2020-01-15 08:07:00 Test Item Value Reference Range Interpretation Comments Rh [Type] in Blood (test code = neg 44873-4) ABO and Rh group panel - Blood O negative (test code = 78679-9) [facility]PT/[id number] 08:07:00 Test Item Value Reference Range Interpretation Comments prothrombin time (test code = 10.4 seconds 10.3-12.3 prothrombin time) INR in Blood by Coagulation 0.96 assay (test code = 56969-9) [facility] xkmo3630-14-30 08:07:00 Test Item Value Reference Range Interpretation Comments INR in Blood by Coagulation 22.0 seconds 22.5-37.0 L assay (test code = 29004-2) [facility] Indirect antibody screen panel - Blood 2020-01-15 08:07:00 Test Item Value Reference Range Interpretation Comments Rh [Type] in Blood (test code = neg 24054-0) ABO and Rh group panel - Blood O negative (test code = 31430-0) [facility]PT/[id number] 08:07:00 Test Item Value Reference Range Interpretation Comments prothrombin time (test code = 10.4 seconds 10.3-12.3 prothrombin time) INR in Blood by Coagulation 0.96 assay (test code = 74347-1) [facility] owkq7946-13-05 08:07:00 Test Item Value Reference Range Interpretation Comments INR in Blood by Coagulation 22.0 seconds 22.5-37.0 L assay (test code = 06492-3) [facility] Indirect antibody screen panel - Blood 2020-01-15 08:07:00 Test Item Value Reference Range Interpretation Comments Rh [Type] in Blood (test code = neg 26591-5) ABO and Rh group panel - Blood O negative (test code = 46888-6) [facility]Com[facility] 2000 panel - Serum or [...] Serum or Plasma (test code = 6768-6) [facility] HospitalCreatine kinase [Enzymatic activity/volume] in Serum or Fezggk7169-54-11 07:32:00 Test Item Value Reference Range Interpretation Comments creatine kinase (test code = creatine 901 U/L 20-180 H kinase) [facility] HospitalNatriuretic peptide.B prohormone N-Terminal [Mass/volume] in Serum or Bpvbqh7463-04-17 07:32:00 Test Item Value Reference Range Interpretation Comments N-term pro natriuretic peptide (test 91 pg/mL 0-125 code = N-term pro natriuretic peptide) [facility] HospitalTroponin I.cardiac [Mass/volume] in Opiak5012-15-83 07:32:00 Test Item Value Reference Range Interpretation Comments cardiac troponin I (test code = cardiac <0.30 0.0-0.5 troponin I) [facility] HospitalCreatine kinase.MB [Mass/volume] in Serum or Plasma 2020-01-15 07:32:00 Test Item Value Reference Range Interpretation Comments Creatine kinase.MB [Mass/volume] 25.1 NG/mL 0.0-3.6 H in Serum or Plasma by Immunoassay (test code = 33429-1) [facility]Com[facility] 2000 panel - Serum or [...] Serum or Plasma (test code = 6768-6) [facility] HospitalCreatine kinase [Enzymatic activity/volume] in Serum or Gzlzsf1197-09-63 07:32:00 Test Item Value Reference Range Interpretation Comments creatine kinase (test code = creatine 901 U/L 20-180 H kinase) [facility] HospitalNatriuretic peptide.B prohormone N-Terminal [Mass/volume] in Serum or Huejik6177-72-50 07:32:00 Test Item Value Reference Range Interpretation Comments N-term pro natriuretic peptide (test 91 pg/mL 0-125 code = N-term pro natriuretic peptide) [facility] HospitalTroponin I.cardiac [Mass/volume] in Readm3735-54-70 07:32:00 Test Item Value Reference Range Interpretation Comments cardiac troponin I (test code = cardiac <0.30 0.0-0.5 troponin I) [facility] HospitalCreatine kinase.MB [Mass/volume] in Serum or Plasma 2020-01-15 07:32:00 Test Item Value Reference Range Interpretation Comments Creatine kinase.MB [Mass/volume] 25.1 NG/mL 0.0-3.6 H in Serum or Plasma by Immunoassay (test code = 17784-3) [facility] W Auto Differential panel - [id number] 07:32:00 Test Item Value Reference Range Interpretation Comments white blood count (test code = 8.5 K/uL 4.0-11.5 white blood count) red blood count (test code = red 1.60 M/uL 3.80-5.20 L blood count) hemoglobin (test code = 5.1 g/dL 10.5-15.7 hemoglobin) hematocrit (test code = 16.9 % 34.0-50.0 hematocrit) MCV [Entitic volume] (test code = 105.6 fL 86-100 H 24092-8) mean corpuscular hemoglobin (test 31.9 pg 26.2-33.4 [...] H leukocytes in Blood (test code = 93937-0) Immature granulocytes [#/volume] 0.0 K/uL 0.0-0.03 H in Blood (test code = 22440-8) lymphocyte% (test code = 11.4 % 10.0-50.0 lymphocyte%) mono % (test code = mono %) 5.4 % 3.6-12.0 eos % (test code = eos %) 0.5 % 0.0-5.4 Basophils/100 leukocytes in 0.1 % 0.1-1.2 Unspecified specimen (test code = 84018-1) Band form neutrophils [#/volume] 6.97 K/uL 1.56-6.13 H in Blood (test code = 76171-0) Lymphocytes [#/volume] in 1.0 K/uL 1.18-3.74 L Unspecified specimen by Automated count (test code = 24044-4) mono # (test code = mono #) 0.46 K/uL 0.24-0.86 eos # (test code = eos #) 0.04 K/uL 0.04-0.36 basophil # (test code = basophil 0.01 K/uL 0.01-0.08 #) NRBC% (test code = NRBC%) 2 /100 WBC 0-0.2 H NRBC# (test code = NRBC#) 0 K/uL [facility] HospitalDifferential panel, method unspecified - Wfgiv0379-89-21 07:32:00NeutrophilsBandLymphocyteMonocyteEosinophilBasophilPlatelet EstimateDifferential comment-[facility] CenterComprehensive metabolic 2000 panel - Serum or Puduek2392-61-09 07:32:00 Test Item Value Reference Range Interpretation [...] Serum or Plasma (test code = 6768-6) [facility] GroupCreatine kinase [Enzymatic activity/volume] in Serum or Hggdwk4028-98-03 07:32:00 Test Item Value Reference Range Interpretation Comments creatine kinase (test code = creatine 901 U/L 20-180 H kinase) [facility] HospitalNatriuretic peptide.B prohormone N-Terminal [Mass/volume] in Serum or Bdpfgd3290-58-06 07:32:00 Test Item Value Reference Range Interpretation Comments N-term pro natriuretic peptide (test 91 pg/mL 0-125 code = N-term pro natriuretic peptide) [facility] HospitalTroponin I.cardiac [Mass/volume] in Boqyb5695-56-27 07:32:00 Test Item Value Reference Range Interpretation Comments cardiac troponin I (test code = cardiac <0.30 0.0-0.5 troponin I) [facility] GroupCreatine kinase.MB [Mass/volume] in Serum or Plasma 2020-01-15 07:32:00 Test Item Value Reference Range Interpretation Comments Creatine kinase.MB [Mass/volume] 25.1 NG/mL 0.0-3.6 H in Serum or Plasma by Immunoassay (test code = 93443-4) [facility] HospitalUrinalysis complete panel - Ctgvz3816-80-04 04:45:00 Test Item Value Reference Range Interpretation Comments Color of Urine by Auto (test colorless code = 98329-9) Appearance of Urine (test code clear clear = 5767-9) Glucose [Presence] in Urine by negative negative Automated test strip (test code = 31443-2) Bilirubin.total [Mass/volume] negative negative in Urine (test code = 1978-6) Ketones [Mass/volume] in Urine negative negative by Automated test strip (test code = 52491-0) Specific gravity of Urine by 1.008 1.003-1.030 Automated test strip (test code = 41779-4) blood urine (test code = blood negative negative urine) pH of Urine (test code = 5.500 5-9 2756-5) protein urine (UA) (test code = negative negative protein urine (UA)) Urobilinogen [Presence] in normal 0.2-1.0 Urine (test code = 66827-7) Nitrite [Presence] in Urine by negative negative Test strip (test code = 5802-4) Leukocyte esterase [Presence] negative negative in Urine by Automated test strip (test code = 32282-9) Erythrocytes [#/volume] in <1 0-5 Urine by Automated count (test code = 798-9) Leukocytes [#/area] in Urine <1 0-5 sediment by Automated count (test code = 97902-9) Epithelial cells [Presence] in <1 0-5 Urine sediment by Light microscopy (test code = 86250-7) Bacteria identified in Urine by none detected none detect Culture (test code = 630-4) Casts [#/area] in Urine =2-5 none detect sediment by Automated count (test code = 84307-6) urine culture added? (test code no = urine culture added?) [facility]Urinalysis complete panel - Aousj5692-72-07 04:45:00 Test Item Value Reference Range Interpretation Comments Color of Urine by Auto (test colorless code = 04844-5) Appearance of Urine (test code clear clear = 5767-9) Glucose [Presence] in Urine by negative negative Automated test strip (test code = 75561-7) Bilirubin.total [Mass/volume] negative negative in Urine (test code = 1978-02) Ketones [Mass/volume] in Urine negative negative by Automated test strip (test code = 11897-1) Specific gravity of Urine by 1.008 1.003-1.030 Automated test strip (test code = 77571-2) blood urine (test code = blood negative negative urine) pH of Urine (test code = 5.500 5-9 2756-5) protein urine (UA) (test code = negative negative protein urine (UA)) Urobilinogen [Presence] in normal 0.2-1.0 Urine (test code = 03105-4) Nitrite [Presence] in Urine by negative negative Test strip (test code = 5802-4) Leukocyte esterase [Presence] negative negative in Urine by Automated test strip (test code = 39966-4) Erythrocytes [#/volume] in <1 0-5 Urine by Automated count (test code = 798-9) Leukocytes [#/area] in Urine <1 0-5 sediment by Automated count (test code = 48722-5) Epithelial cells [Presence] in <1 0-5 Urine sediment by Light microscopy (test code = 69105-5) Bacteria identified in Urine by none detected none detect Culture (test code = 630-4) Casts [#/area] in Urine =2-5 none detect sediment by Automated count (test code = 85188-5) urine culture added? (test code no = urine culture added?) [facility] GroupUrinalysis complete panel - [id number] 04:45:00 Test Item Value Reference Range Interpretation Comments Color of Urine by Auto (test colorless code = 84353-3) Appearance of Urine (test code clear clear = 5767-9) Glucose [Presence] in Urine by negative negative Automated test strip (test code = 06383-4) Bilirubin.total [Mass/volume] negative negative in Urine (test code = 1978-02) Ketones [Mass/volume] in Urine negative negative by Automated test strip (test code = 11503-6) Specific gravity of Urine by 1.008 1.003-1.030 Automated test strip (test code = 33847-2) blood urine (test code = blood negative negative urine) pH of Urine (test code = 5.500 5-9 2756-5) protein urine (UA) (test code = negative negative protein urine (UA)) Urobilinogen [Presence] in normal 0.2-1.0 Urine (test code = 40491-7) Nitrite [Presence] in Urine by negative negative Test strip (test code = 5802-4) Leukocyte esterase [Presence] negative negative in Urine by Automated test strip (test code = 74728-6) Erythrocytes [#/volume] in <1 0-5 Urine by Automated count (test code = 798-9) Leukocytes [#/area] in Urine <1 0-5 sediment by Automated count (test code = 58895-6) Epithelial cells [Presence] in <1 0-5 Urine sediment by Light microscopy (test code = 36935-9) Bacteria identified in Urine by none detected none detect Culture (test code = 630-4) Casts [#/area] in Urine =2-5 none detect sediment by Automated count (test code = 67494-5) urine culture added? (test code no = urine culture added?) [facility] W Auto Differential panel - [id number] 09:37:00 Test Item Value Reference Range Interpretation Comments white blood count (test code = 6.7 K/uL 4.0-11.5 white blood count) red blood count (test code = red 2.27 M/uL 3.80-5.20 L blood count) hemoglobin (test code = 7.2 g/dL 10.5-15.7 hemoglobin) hematocrit (test code = 23.1 % 34.0-50.0 hematocrit) MCV [Entitic volume] (test code = 101.8 fL 86-100 H 90175-1) mean corpuscular hemoglobin (test 31.7 pg 26.2-33.4 [...] 44.4-80.1 leukocytes in Blood (test code = 17044-5) Immature granulocytes [#/volume] 0.0 K/uL 0.0-0.03 in Blood (test code = 23677-5) lymphocyte% (test code = 19.0 % 10.0-50.0 lymphocyte%) mono % (test code = mono %) 5.2 % 3.6-12.0 eos % (test code = eos %) 0.4 % 0.0-5.4 Basophils/100 leukocytes in 0.3 % 0.1-1.2 Unspecified specimen (test code = 19999-1) Band form neutrophils [#/volume] 4.98 K/uL 1.56-6.13 in Blood (test code = 76747-6) Lymphocytes [#/volume] in 1.3 K/uL 1.18-3.74 Unspecified specimen by Automated count (test code = 33931-2) mono # (test code = mono #) 0.35 K/uL 0.24-0.86 eos # (test code = eos #) 0.03 K/uL 0.04-0.36 L basophil # (test code = basophil 0.02 K/uL 0.01-0.08 #) NRBC% (test code = NRBC%) 1 /100 WBC 0-0.2 H NRBC# (test code = NRBC#) 0 K/uL [facility] W Auto Differential panel - [id number] 09:37:00 Test Item Value Reference Range Interpretation Comments white blood count (test code = 6.7 K/uL 4.0-11.5 white blood count) red blood count (test code = red 2.27 M/uL 3.80-5.20 L blood count) hemoglobin (test code = 7.2 g/dL 10.5-15.7 hemoglobin) hematocrit (test code = 23.1 % 34.0-50.0 hematocrit) MCV [Entitic volume] (test code = 101.8 fL 86-100 H 12001-4) mean corpuscular hemoglobin (test 31.7 pg 26.2-33.4 [...] 44.4-80.1 leukocytes in Blood (test code = 49031-6) Immature granulocytes [#/volume] 0.0 K/uL 0.0-0.03 in Blood (test code = 53865-9) lymphocyte% (test code = 19.0 % 10.0-50.0 lymphocyte%) mono % (test code = mono %) 5.2 % 3.6-12.0 eos % (test code = eos %) 0.4 % 0.0-5.4 Basophils/100 leukocytes in 0.3 % 0.1-1.2 Unspecified specimen (test code = 56618-9) Band form neutrophils [#/volume] 4.98 K/uL 1.56-6.13 in Blood (test code = 46714-0) Lymphocytes [#/volume] in 1.3 K/uL 1.18-3.74 Unspecified specimen by Automated count (test code = 12834-1) mono # (test code = mono #) 0.35 K/uL 0.24-0.86 eos # (test code = eos #) 0.03 K/uL 0.04-0.36 L basophil # (test code = basophil 0.02 K/uL 0.01-0.08 #) NRBC% (test code = NRBC%) 1 /100 WBC 0-0.2 H NRBC# (test code = NRBC#) 0 K/uL [facility] W Auto Differential panel - [id number] 09:37:00 Test Item Value Reference Range Interpretation Comments white blood count (test code = 6.7 K/uL 4.0-11.5 white blood count) red blood count (test code = red 2.27 M/uL 3.80-5.20 L blood count) hemoglobin (test code = 7.2 g/dL 10.5-15.7 hemoglobin) hematocrit (test code = 23.1 % 34.0-50.0 hematocrit) MCV [Entitic volume] (test code = 101.8 fL 86-100 H 44023-6) mean corpuscular hemoglobin (test 31.7 pg 26.2-33.4 [...] 44.4-80.1 leukocytes in Blood (test code = 56908-5) Immature granulocytes [#/volume] 0.0 K/uL 0.0-0.03 in Blood (test code = 72821-0) lymphocyte% (test code = 19.0 % 10.0-50.0 lymphocyte%) mono % (test code = mono %) 5.2 % 3.6-12.0 eos % (test code = eos %) 0.4 % 0.0-5.4 Basophils/100 leukocytes in 0.3 % 0.1-1.2 Unspecified specimen (test code = 70644-0) Band form neutrophils [#/volume] 4.98 K/uL 1.56-6.13 in Blood (test code = 26656-2) Lymphocytes [#/volume] in 1.3 K/uL 1.18-3.74 Unspecified specimen by Automated count (test code = 44939-5) mono # (test code = mono #) 0.35 K/uL 0.24-0.86 eos # (test code = eos #) 0.03 K/uL 0.04-0.36 L basophil # (test code = basophil 0.02 K/uL 0.01-0.08 #) NRBC% (test code = NRBC%) 1 /100 WBC 0-0.2 H NRBC# (test code = NRBC#) 0 K/uL [facility] [Enzymatic activity/volume] in Serum or [id number] 05:20:00 Test Item Value Reference Range Interpretation Comments creatine kinase (test code = creatine 189 U/L 20-180 H kinase) [facility] I.cardiac [Mass/volume] in [id number] 05:20:00 Test Item Value Reference Range Interpretation Comments cardiac troponin I (test code = cardiac <0.30 0.0-0.5 troponin I) [facility].MB [Mass/volume] in Serum or Plasma 2019-06-26 05:20:00 Test Item Value Reference Range Interpretation Comments mass creatinine kinase-mb (test 2.6 NG/mL 0.0-3.6 code = mass creatinine kinase-mb) [facility] - [id number] 02:50:00 Test Item Value Reference Range Interpretation Comments white blood count (test code = 4.8 K/uL 4.0-11.5 white blood count) red blood count (test code = red 3.44 M/uL 3.80-5.20 L blood count) hemoglobin (test code = 11.0 g/dL 10.5-15.7 hemoglobin) hematocrit (test code = 34.4 % 34.0-50.0 hematocrit) Erythrocyte mean corpuscular 100.0 fL 86-100 volume [Entitic volume] (test code = 91521-0) mean corpuscular hemoglobin (test 32.0 pg 26.2-33.4 [...] 44.4-80.1 leukocytes in Blood (test code = 52603-1) Granulocytes Immature [#/volume] 0.0 K/uL 0.0-0.03 in Blood (test code = 02297-5) lymphocyte% (test code = 19.7 % 10.0-50.0 lymphocyte%) mono % (test code = mono %) 9.5 % 3.6-12.0 eos % (test code = eos %) 1.7 % 0.0-5.4 Basophils/100 leukocytes in 0.2 % 0.1-1.2 Unspecified specimen (test code = 80541-2) Neutrophils.band form [#/volume] 3.32 K/uL 1.56-6.13 in Blood (test code = 58670-5) Lymphocytes [#/volume] in 1.0 K/uL 1.18-3.74 L Unspecified specimen by Automated count (test code = 91145-4) mono # (test code = mono #) 0.46 K/uL 0.24-0.86 eos # (test code = eos #) 0.08 K/uL 0.04-0.36 basophil # (test code = basophil 0.01 K/uL 0.01-0.08 #) NRBC% (test code = NRBC%) 0 /100 WBC 0-0.2 NRBC# (test code = NRBC#) 0 K/uL [facility], [id number] 02:50:00 NeutrophilsBandLymphocyteAtypical LymphMonocyteEosinophilBasophilMetamyelocytePlatelet EstimatePlatelet MorphologyHypochromasiaAnisocytosisMacrocytosisToxic GranulationToxic VacuolationMagoPerry County General HospitalPT/[id number] 02:50:00 Test Item Value Reference Range Interpretation Comments prothrombin time (test code = 9.5 seconds 10.3-12.3 L prothrombin time) INR in Blood by Coagulation assay 0.90 (test code = 16966-4) [facility] [id number] 02:50:00 Test Item Value Reference Range Interpretation Comments INR in Blood by Coagulation 24.8 seconds 22.5-37.0 assay (test code = 86403-7) [facility]Comprehensive [facility] 2000 panel - Serum or [...] Serum or Plasma (test code = 6768-6) [facility] GroupCreat[facility] kinase [Enzymatic activity/volume] in Serum or [id number] 02:50:00 Test Item Value Reference Range Interpretation Comments creatine kinase (test code = creatine 187 U/L 20-180 H kinase) [facility] GroupNatriuretic peptide.B prohormone N-Terminal [Mass/volume] in Serum or [id number] 02:50:00 Test Item Value Reference Range Interpretation Comments N-term pro natriuretic peptide 171 pg/mL 0-125 H (test code = N-term pro natriuretic peptide) [facility] I.cardiac [Mass/volume] in [id number] 02:50:00 Test Item Value Reference Range Interpretation Comments cardiac troponin I (test code = cardiac <0.30 0.0-0.5 troponin I) [facility]Creat[facility] kinase.MB [Mass/volume] in Serum or Plasma 2019-06-26 02:50:00 Test Item Value Reference Range Interpretation Comments mass creatinine kinase-mb (test 2.6 NG/mL 0.0-3.6 code = mass creatinine kinase-mb) [facility] W Auto Differential panel - [id number] 02:50:00 Test Item Value Reference Range Interpretation Comments white blood count (test code = 4.8 K/uL 4.0-11.5 white blood count) red blood count (test code = red 3.44 M/uL 3.80-5.20 L blood count) hemoglobin (test code = 11.0 g/dL 10.5-15.7 hemoglobin) hematocrit (test code = 34.4 % 34.0-50.0 hematocrit) Erythrocyte mean corpuscular 100.0 fL 86-100 volume [Entitic volume] (test code = 22362-5) mean corpuscular hemoglobin (test 32.0 pg 26.2-33.4 [...] 44.4-80.1 leukocytes in Blood (test code = 94159-2) Granulocytes Immature [#/volume] 0.0 K/uL 0.0-0.03 in Blood (test code = 06382-0) lymphocyte% (test code = 19.7 % 10.0-50.0 lymphocyte%) mono % (test code = mono %) 9.5 % 3.6-12.0 eos % (test code = eos %) 1.7 % 0.0-5.4 Basophils/100 leukocytes in 0.2 % 0.1-1.2 Unspecified specimen (test code = 81555-8) Neutrophils.band form [#/volume] 3.32 K/uL 1.56-6.13 in Blood (test code = 47517-9) Lymphocytes [#/volume] in 1.0 K/uL 1.18-3.74 L Unspecified specimen by Automated count (test code = 37637-9) mono # (test code = mono #) 0.46 K/uL 0.24-0.86 eos # (test code = eos #) 0.08 K/uL 0.04-0.36 basophil # (test code = basophil 0.01 K/uL 0.01-0.08 #) NRBC% (test code = NRBC%) 0 /100 WBC 0-0.2 NRBC# (test code = NRBC#) 0 K/uL [facility]different[facility], [id number] 02:50:00 NeutrophilsBandLymphocyteAtypical LymphMonocyteEosinophilBasophilMetamyelocytePlatelet EstimatePlatelet MorphologyHypochromasiaAnisocytosisMacrocytosisToxic GranulationToxic VacuolationMatagoPerry County General HospitalPT/[id number] 02:50:00 Test Item Value Reference Range Interpretation Comments prothrombin time (test code = 9.5 seconds 10.3-12.3 L prothrombin time) INR in Blood by Coagulation assay 0.90 (test code = 27022-7) [facility]partial [facility] [id number] 02:50:00 Test Item Value Reference Range Interpretation Comments INR in Blood by Coagulation 24.8 seconds 22.5-37.0 assay (test code = 38391-2) [facility] HospitalComprehensive [facility] 2000 panel - Serum or [...] Serum or Plasma (test code = 6768-6) [facility] GroupCreatine kinase [Enzymatic activity/volume] in Serum or [id number] 02:50:00 Test Item Value Reference Range Interpretation Comments creatine kinase (test code = creatine 187 U/L 20-180 H kinase) [facility] GroupNatriuretic peptide.B prohormone N-Terminal [Mass/volume] in Serum or [id number] 02:50:00 Test Item Value Reference Range Interpretation Comments N-term pro natriuretic peptide 171 pg/mL 0-125 H (test code = N-term pro natriuretic peptide) [facility] HospitalTroponin I.cardiac [Mass/volume] in [id number] 02:50:00 Test Item Value Reference Range Interpretation Comments cardiac troponin I (test code = cardiac <0.30 0.0-0.5 troponin I) [facility] HospitalCreatine kinase.MB [Mass/volume] in Serum or Plasma 2019-06-26 02:50:00 Test Item Value Reference Range Interpretation Comments mass creatinine kinase-mb (test 2.6 NG/mL 0.0-3.6 code = mass creatinine kinase-mb) [facility] W Auto Differential panel - [id number] 12:30:00 Test Item Value Reference Range Interpretation Comments white blood count (test code = 5.8 K/uL 4.0-11.5 white blood count) red blood count (test code = red 3.64 M/uL 3.80-5.20 L blood count) hemoglobin (test code = 11.6 g/dL 10.5-15.7 hemoglobin) hematocrit (test code = 36.9 % 34.0-50.0 hematocrit) Erythrocyte mean corpuscular 101.4 fL 86-100 H volume [Entitic volume] (test code = 70032-6) mean corpuscular hemoglobin (test 31.9 pg 26.2-33.4 [...] 44.4-80.1 leukocytes in Blood (test code = 68156-1) Granulocytes Immature [#/volume] 0.0 K/uL 0.0-0.03 in Blood (test code = 58246-6) lymphocyte% (test code = 20.2 % 10.0-50.0 lymphocyte%) mono % (test code = mono %) 9.8 % 3.6-12.0 eos % (test code = eos %) 0.9 % 0.0-5.4 Basophils/100 leukocytes in 0.2 % 0.1-1.2 Unspecified specimen (test code = 82518-1) Neutrophils.band form [#/volume] 4.00 K/uL 1.56-6.13 in Blood (test code = 20498-7) Lymphocytes [#/volume] in 1.2 K/uL 1.18-3.74 Unspecified specimen by Automated count (test code = 86880-4) mono # (test code = mono #) 0.57 K/uL 0.24-0.86 eos # (test code = eos #) 0.05 K/uL 0.04-0.36 basophil # (test code = basophil 0.01 K/uL 0.01-0.08 #) NRBC% (test code = NRBC%) 0 /100 WBC 0-0.2 NRBC# (test code = NRBC#) 0 K/uL [facility]different[facility], [id number] 12:30:00 NeutrophilsBandLymphocyteAtypical LymphMonocyteEosinophilBasophilPlatelet EstimatePlatelet MorphologyMacrocytosisTippah County HospitalBasi metabolic 2000 panel - Serum or [id number] 12:30:00 Test Item Value Reference Range Interpretation [...] = calcium 8.5 mg/dL 8.8-10.2 L level) [facility] W Auto Differential panel - [id number] 12:30:00 Test Item Value Reference Range Interpretation Comments white blood count (test code = 5.8 K/uL 4.0-11.5 white blood count) red blood count (test code = red 3.64 M/uL 3.80-5.20 L blood count) hemoglobin (test code = 11.6 g/dL 10.5-15.7 hemoglobin) hematocrit (test code = 36.9 % 34.0-50.0 hematocrit) Erythrocyte mean corpuscular 101.4 fL 86-100 H volume [Entitic volume] (test code = 26812-4) mean corpuscular hemoglobin (test 31.9 pg 26.2-33.4 [...] 44.4-80.1 leukocytes in Blood (test code = 30611-4) Granulocytes Immature [#/volume] 0.0 K/uL 0.0-0.03 in Blood (test code = 95712-4) lymphocyte% (test code = 20.2 % 10.0-50.0 lymphocyte%) mono % (test code = mono %) 9.8 % 3.6-12.0 eos % (test code = eos %) 0.9 % 0.0-5.4 Basophils/100 leukocytes in 0.2 % 0.1-1.2 Unspecified specimen (test code = 57642-8) Neutrophils.band form [#/volume] 4.00 K/uL 1.56-6.13 in Blood (test code = 44482-2) Lymphocytes [#/volume] in 1.2 K/uL 1.18-3.74 Unspecified specimen by Automated count (test code = 99331-4) mono # (test code = mono #) 0.57 K/uL 0.24-0.86 eos # (test code = eos #) 0.05 K/uL 0.04-0.36 basophil # (test code = basophil 0.01 K/uL 0.01-0.08 #) NRBC% (test code = NRBC%) 0 /100 WBC 0-0.2 NRBC# (test code = NRBC#) 0 K/uL [facility]different[facility], [id number] 12:30:00 NeutrophilsBandLymphocyteAtypical LymphMonocyteEosinophilBasophilPlatelet EstimatePlatelet MorphologyMacrocytosisMataG. V. (Sonny) Montgomery VA Medical CenterBasic metabolic 2000 panel - Serum or [id number] 12:30:00 Test Item Value Reference Range Interpretation [...] = calcium 8.5 mg/dL 8.8-10.2 L level) [facility] HospitalUrinalysis complete panel - [id number] 11:54:00 Test Item Value Reference Range Interpretation Comments Color of Urine by Auto light yellow (test code = 56320-0) Appearance of Urine (test clear clear code = 5767-9) Glucose [Presence] in negative negative Urine by Automated test strip (test code = 94952-1) Bilirubin.total negative negative [Mass/volume] in Urine (test code = 1978-6) Ketones [Mass/volume] in negative negative Urine by Automated test strip (test code = 47425-1) Specific gravity of Urine 1.025 1.003-1.030 by Automated test strip (test code = 55559-6) blood urine (test code = negative negative blood urine) pH of Urine (test code = 6.500 5-9 2756-5) protein urine (UA) (test negative negative code = protein urine (UA)) Urobilinogen [Presence] normal 0.2-1.0 in Urine (test code = 28890-4) Nitrite [Presence] in negative negative Urine by Test strip (test code = 5802-4) Leukocyte esterase negative negative [Presence] in Urine by Automated test strip (test code = 83142-0) Erythrocytes [#/volume] <1 0-5 in Urine by Automated count (test code = 798-9) Leukocytes [#/area] in <1 0-5 Urine sediment by Automated count (test code = 10812-8) Epithelial cells <1 0-5 [Presence] in Urine sediment by Light microscopy (test code = 79404-4) Bacteria identified in none detected none detect Urine by Culture (test code = 630-4) Casts [#/area] in Urine =11-14 none detect H sediment by Automated count (test code = 35817-6) urine culture added? no (test code = urine culture added?) path casts,U (test code = cellular casts (1-5 none detect A path casts,U) [facility]Urinal[facility] complete panel - [id number] 11:54:00 Test Item Value Reference Range Interpretation Comments Color of Urine by Auto light yellow (test code = 25152-0) Appearance of Urine (test clear clear code = 5767-9) Glucose [Presence] in negative negative Urine by Automated test strip (test code = 16757-7) Bilirubin.total negative negative [Mass/volume] in Urine (test code = 1977-6) Ketones [Mass/volume] in negative negative Urine by Automated test strip (test code = 66894-7) Specific gravity of Urine 1.025 1.003-1.030 by Automated test strip (test code = 23434-2) blood urine (test code = negative negative blood urine) pH of Urine (test code = 6.500 5-9 2756-5) protein urine (UA) (test negative negative code = protein urine (UA)) Urobilinogen [Presence] normal 0.2-1.0 in Urine (test code = 86849-9) Nitrite [Presence] in negative negative Urine by Test strip (test code = 5802-4) Leukocyte esterase negative negative [Presence] in Urine by Automated test strip (test code = 70654-6) Erythrocytes [#/volume] <1 0-5 in Urine by Automated count (test code = 798-9) Leukocytes [#/area] in <1 0-5 Urine sediment by Automated count (test code = 96150-5) Epithelial cells <1 0-5 [Presence] in Urine sediment by Light microscopy (test code = 59905-0) Bacteria identified in none detected none detect Urine by Culture (test code = 630-4) Casts [#/area] in Urine =11-14 none detect H sediment by Automated count (test code = 95421-3) urine culture added? no (test code = urine culture added?) path casts,U (test code = cellular casts (1-5 none detect A path casts,U) [facility] W Auto Differential panel - [id number] 09:30:00 Test Item Value Reference Range Interpretation Comments white blood count (test code = 5.6 K/uL 4.0-11.5 white blood count) red blood count (test code = red 3.98 M/uL 3.80-5.20 blood count) hemoglobin (test code = 12.7 g/dL 10.5-15.7 hemoglobin) hematocrit (test code = 39.8 % 34.0-50.0 hematocrit) Erythrocyte mean corpuscular 100.0 fL 86-100 volume [Entitic volume] (test code = 72485-8) mean corpuscular hemoglobin (test 31.9 pg 26.2-33.4 [...] 44.4-80.1 leukocytes in Blood (test code = 12634-6) Granulocytes Immature [#/volume] 0.0 K/uL 0.0-0.03 in Blood (test code = 38039-5) lymphocyte% (test code = 15.1 % 10.0-50.0 lymphocyte%) mono % (test code = mono %) 6.8 % 3.6-12.0 eos % (test code = eos %) 0.7 % 0.0-5.4 Basophils/100 leukocytes in 0.4 % 0.1-1.2 Unspecified specimen (test code = 50824-6) Neutrophils.band form [#/volume] 4.29 K/uL 1.56-6.13 in Blood (test code = 89561-5) Lymphocytes [#/volume] in 0.8 K/uL 1.18-3.74 L Unspecified specimen by Automated count (test code = 15247-0) mono # (test code = mono #) 0.38 K/uL 0.24-0.86 eos # (test code = eos #) 0.04 K/uL 0.04-0.36 basophil # (test code = basophil 0.02 K/uL 0.01-0.08 #) NRBC% (test code = NRBC%) 0 /100 WBC 0-0.2 NRBC# (test code = NRBC#) 0 K/uL [facility], [id number] 09:30:00 NeutrophilsBandLymphocyteAtypical LymphMonocyteEosinophilPlatelet EstimatePlatelet MorphologyMacrocytosisMataNortheastern Vermont Regional Hospital GroupPT/[id number] 09:30:00 Test Item Value Reference Range Interpretation Comments prothrombin time (test code = 10.5 seconds 10.3-12.3 prothrombin time) INR in Blood by Coagulation 0.95 assay (test code = 60266-8) [facility] [id number] 09:30:00 Test Item Value Reference Range Interpretation Comments INR in Blood by Coagulation 23.4 seconds 22.5-37.0 assay (test code = 60144-0) [facility] HospitalComprehensive metabolic 2000 panel - Serum or [...] Serum or Plasma (test code = 6768-6) [facility] HospitalMagnesium [Moles/volume] in Unspecified specimen 2019-06-03 09:30:00 Test Item Value Reference Range Interpretation Comments magnesium level (test code = 1.8 mg/dL 1.6-2.4 magnesium level) [facility] GroupEthanol [Mass/volume] in Serum or [id number] 09:30:00 Test Item Value Reference Range Interpretation Comments alcohol level (test code = alcohol <10.1 0.00-10.1 level) [facility] HospitalCreatine kinase [Enzymatic activity/volume] in Serum or [id number] 09:30:00 Test Item Value Reference Range Interpretation Comments creatine kinase (test code = creatine 150 U/L 20-180 kinase) [facility] HospitalNatriuretic peptide.B prohormone N-Terminal [Mass/volume] in Serum or [id number] 09:30:00 Test Item Value Reference Range Interpretation Comments N-term pro natriuretic peptide 200 pg/mL 0-125 H (test code = N-term pro natriuretic peptide) [facility] HospitalTroponin I.cardiac [Mass/volume] in [id number] 09:30:00 Test Item Value Reference Range Interpretation Comments cardiac troponin I (test code = cardiac <0.30 0.0-0.5 troponin I) [facility] HospitalCreatine kinase.MB [Mass/volume] in Serum or Plasma 2019-06-03 09:30:00 Test Item Value Reference Range Interpretation Comments mass creatinine kinase-mb (test 2.3 NG/mL 0.0-3.6 code = mass creatinine kinase-mb) [facility] HospitalMyoglobin [Mass/volume] in Serum or [id number] 09:30:00 Test Item Value Reference Range Interpretation Comments myoglobin (test code = myoglobin) 37 NG/mL 25-58 [facility] W Auto Differential panel - [id number] 09:30:00 Test Item Value Reference Range Interpretation Comments white blood count (test code = 5.6 K/uL 4.0-11.5 white blood count) red blood count (test code = red 3.98 M/uL 3.80-5.20 blood count) hemoglobin (test code = 12.7 g/dL 10.5-15.7 hemoglobin) hematocrit (test code = 39.8 % 34.0-50.0 hematocrit) Erythrocyte mean corpuscular 100.0 fL 86-100 volume [Entitic volume] (test code = 45535-4) mean corpuscular hemoglobin (test 31.9 pg 26.2-33.4 [...] 44.4-80.1 leukocytes in Blood (test code = 81122-7) Granulocytes Immature [#/volume] 0.0 K/uL 0.0-0.03 in Blood (test code = 52920-0) lymphocyte% (test code = 15.1 % 10.0-50.0 lymphocyte%) mono % (test code = mono %) 6.8 % 3.6-12.0 eos % (test code = eos %) 0.7 % 0.0-5.4 Basophils/100 leukocytes in 0.4 % 0.1-1.2 Unspecified specimen (test code = 81200-5) Neutrophils.band form [#/volume] 4.29 K/uL 1.56-6.13 in Blood (test code = 62374-8) Lymphocytes [#/volume] in 0.8 K/uL 1.18-3.74 L Unspecified specimen by Automated count (test code = 86968-5) mono # (test code = mono #) 0.38 K/uL 0.24-0.86 eos # (test code = eos #) 0.04 K/uL 0.04-0.36 basophil # (test code = basophil 0.02 K/uL 0.01-0.08 #) NRBC% (test code = NRBC%) 0 /100 WBC 0-0.2 NRBC# (test code = NRBC#) 0 K/uL [facility]different[facility], [id number] 09:30:00 NeutrophilsBandLymphocyteAtypical LymphMonocyteEosinophilPlatelet EstimatePlatelet MorphologyMacrocytosisMaOcean Springs HospitalPT/[id number] 09:30:00 Test Item Value Reference Range Interpretation Comments prothrombin time (test code = 10.5 seconds 10.3-12.3 prothrombin time) INR in Blood by Coagulation 0.95 assay (test code = 99710-9) [facility]partial [facility] [id number] 09:30:00 Test Item Value Reference Range Interpretation Comments INR in Blood by Coagulation 23.4 seconds 22.5-37.0 assay (test code = 18948-9) [facility] HospitalComprehensive metabolic 2000 panel - Serum or [...] Serum or Plasma (test code = 6768-6) [facility] HospitalMagnesium [Moles/volume] in Unspecified specimen 2019-06-03 09:30:00 Test Item Value Reference Range Interpretation Comments magnesium level (test code = 1.8 mg/dL 1.6-2.4 magnesium level) [facility] GroupEthanol [Mass/volume] in Serum or [id number] 09:30:00 Test Item Value Reference Range Interpretation Comments alcohol level (test code = alcohol <10.1 0.00-10.1 level) [facility] HospitalCreatine kinase [Enzymatic activity/volume] in Serum or [id number] 09:30:00 Test Item Value Reference Range Interpretation Comments creatine kinase (test code = creatine 150 U/L 20-180 kinase) [facility] HospitalNatriuretic peptide.B prohormone N-Terminal [Mass/volume] in Serum or [id number] 09:30:00 Test Item Value Reference Range Interpretation Comments N-term pro natriuretic peptide 200 pg/mL 0-125 H (test code = N-term pro natriuretic peptide) [facility] HospitalTroponin I.cardiac [Mass/volume] in [id number] 09:30:00 Test Item Value Reference Range Interpretation Comments cardiac troponin I (test code = cardiac <0.30 0.0-0.5 troponin I) [facility] HospitalCreatine kinase.MB [Mass/volume] in Serum or Plasma 2019-06-03 09:30:00 Test Item Value Reference Range Interpretation Comments mass creatinine kinase-mb (test 2.3 NG/mL 0.0-3.6 code = mass creatinine kinase-mb) [facility] HospitalMyoglobin [Mass/volume] in Serum or [id number] 09:30:00 Test Item Value Reference Range Interpretation Comments myoglobin (test code = myoglobin) 37 NG/mL 25-58 [facility]inal[facility] complete panel - [id number] 05:40:00 Test Item Value Reference Range Interpretation Comments Color of Urine by Auto yellow (test code = 83323-7) Appearance of Urine (test SL cloudy clear A code = 5767-9) Glucose [Presence] in Urine negative negative by Automated test strip (test code = 06919-2) Bilirubin.total negative negative [Mass/volume] in Urine (test code = 1978-6) Ketones [Mass/volume] in =1 negative H Urine by Automated test strip (test code = 27552-5) Specific gravity of Urine 1.022 1.003-1.030 by Automated test strip (test code = 19805-0) blood urine (test code = trace negative blood urine) pH of Urine (test code = 7.000 5-9 2756-5) protein urine (UA) (test =1+ (30 negative H code = protein urine (UA)) Urobilinogen [Presence] in =2.0 0.2-1.0 H Urine (test code = 02433-4) Nitrite [Presence] in Urine positive negative H by Test strip (test code = 5802-4) Leukocyte esterase =4 negative H [Presence] in Urine by Automated test strip (test code = 02993-3) Erythrocytes [#/volume] in =6-10 0-5 H Urine by Automated count (test code = 798-9) Leukocytes [#/area] in =11-14 0-5 H Urine sediment by Automated count (test code = 94876-8) Epithelial cells [Presence] =11-25 0-5 H in Urine sediment by Light microscopy (test code = 40768-4) Bacteria identified in trace none detect Urine by Culture (test code = 630-4) Casts [#/area] in Urine =2-5 none detect sediment by Automated count (test code = 35618-8) urine culture added? (test no. contaminated. code = urine culture added?) [facility]Bacteria identified in Urine by [id number] 05:40:00Bacteria Ur CultTippah County HospitalPT/[id number] 05:17:00 Test Item Value Reference Range Interpretation Comments prothrombin time (test code = 9.9 seconds 10.3-12.3 L prothrombin time) INR in Blood by Coagulation assay 0.94 (test code = 26433-0) [facility] thromb[facility]in [id number] 05:17:00 Test Item Value Reference Range Interpretation Comments INR in Blood by Coagulation 24.3 seconds 22.5-37.0 assay (test code = 76720-9) [facility] W Auto Differential panel - [id number] 05:17:00 Test Item Value Reference Range Interpretation Comments white blood count (test 5.6 K/uL 4.0-11.5 code = white blood count) red blood count (test 4.89 M/uL 3.80-5.20 code = red blood count) Hemoglobin [Mass/volume] 15.0 g/dL 10.5-15.7 in Blood (test code = 718-7) hematocrit (test code = 47.9 % 34.0-50.0 hematocrit) Erythrocyte mean 97.9 fL 78-98 corpuscular volume [Entitic volume] (test code = 74838-6) Erythrocyte mean 30.6 pg 26.2-33.4 corpuscular hemoglobin [Entitic mass] (test code = 86135-9) mean corpuscular HGB 31.3 g/dL 31.5-36.2 L conc (test code = mean corpuscular HGB conc) red cell distribution 13.3 % 11.5-15.5 width (test code = red cell distribution width) Platelets [#/volume] in 283 K/uL 137-338 Blood (test code = 12637-8) Platelet mean volume 6.8 fL 8.4-11.8 L [Entitic volume] in Blood (test code = 86413-7) Neutrophils.band 68.6 % 44.4-80.1 form/100 leukocytes in Blood (test code = 85205-0) Lymphocytes/100 20.7 % 10.0-50.0 leukocytes in Body fluid (test code = 37766-6) Monocytes/100 leukocytes 9.2 % 3.6-12.04 in Blood by Automated count (test code = 5905-5) Eosinophils/100 0.4 % 0.0-5.41 leukocytes in Blood by Automated count (test code = 713-8) Basophils/100 leukocytes 1.1 % 0.0-0.79 H in Blood by Automated count (test code = 706-2) Platelet morphology hypersegmented polys normal RBC. finding [Identifier] in Blood (test code = 46618-3) [facility] Hospitaldifferential panel, [id number] 05:17:00 NeutrophilsBandLymphocyteAtypical LymphMonocyteEosinophilBasophilMyelocytePlatelet EstimatePlatelet M orphologyHypersegmented PolysToxic VacuolationSmudge CellsMaOcean Springs HospitalComprehensive metabolic 2000 panel - Serum or [id number] 05:17:00 Test Item Value Reference Range Interpretation [...] Serum or Plasma (test code = 6768-6) [facility] HospitalCreatine kinase [Enzymatic activity/volume] in Serum or [id number] 05:17:00 Test Item Value Reference Range Interpretation Comments creatine kinase (test code = creatine 246 U/L 20-180 H kinase) [facility] HospitalTroponin I.cardiac [Mass/volume] in [id number] 05:17:00 Test Item Value Reference Range Interpretation Comments cardiac troponin I (test code = cardiac <0.30 0.0-0.5 troponin I) [facility] HospitalCreatine kinase.MB [Mass/volume] in Serum or Plasma 2018-10-09 05:17:00 Test Item Value Reference Range Interpretation Comments mass creatinine kinase-mb (test 3.9 NG/mL 0.0-3.6 H code = mass creatinine kinase-mb) [facility]
[2021-02-15] MEDS ORDERED: NA CHLORIDE 0.9% 500 ML ONE (15:12)
--- NOTE | 2021-02-15 15:25 | RAD REPORT ---
EXAM DESCRIPTION: CT - CTHCSPWOC - 02/15/2021 3:17 pm CLINICAL HISTORY: Trauma, head and neck injury. fall COMPARISON: No comparisons TECHNIQUE: Axial 5 mm thick images of the head were obtained. Axial 2 mm thick images of the cervical spine were obtained with sagittal and coronal reconstruction images generated and reviewed. All CT scans are performed using dose optimization technique as appropriate and may include automated exposure control or mA/KV adjustment according to patient size. FINDINGS: CT HEAD WITHOUT CONTRAST: No acute hemorrhage, hydrocephalus or extra-axial collection is identified.No areas of brain edema or midline shift. The paranasal sinuses and mastoids are clear.The calvarium is intact. CT CERVICAL SPINE WITHOUT CONTRAST: No fracture or subluxation.No prevertebral soft tissues swelling is identified. IMPRESSION: No acute intracranial or cervical spine findings.
[2021-02-15 15:26] LABS: Absolute Lymphocytes (CBC) 1.4 K/uL (0.7-4.9); Basophils % 0.3 % (0-1.3); Hematocrit 28.9 % (36.0-45.0); MPV 7.5 fL (7.6-11.3); RBC Red Blood Cell Count 3.39 M/uL (3.86-4.86)
[2021-02-15 15:29] LABS: Protime INR 1.02
--- NOTE | 2021-02-15 15:31 | RAD REPORT ---
EXAM DESCRIPTION: CT - Abdomen Pelvis Wo Contrast - 02/15/2021 3:17 pm CLINICAL HISTORY: Abdominal pain. fall, right back/flank pain COMPARISON: Abdomen Pelvis W Contrast dated 01/01/2021 TECHNIQUE: CT imaging of the abdomen and pelvis was performed without contrast. Solid organ, bowel a nd vascular assessment is limited due to lack of IV and oral contrast. All CT scans are performed using dose optimization technique as appropriate and may include automated exposure control or mA/KV adjustment according to patient size. FINDINGS: The lower lung chong are clear.Moderate hiatal hernia. The liver, spleen, pancreas, adrenal glands are within normal limits for a limited non-contrast exami nation.Small nonobstructing left renal calculi. No bowel obstruction, free air, free fluid or abscess. Small fat containing umbilical. The appendix i s normal. The osseous structures are within normal limits. IMPRESSION: No acute intra-abdominal or pelvic findings. A limited non-contrast examination was performed as detailed.
[2021-02-15 15:58] LABS: Urine Blood Negative (Negative); Urine Glucose Negative (Negative); Urine Protein Negative (Negative); Urine Specific Gravity 1.025 (1.005-1.030)
--- NOTE | 2021-02-15 16:18 | ER ---
Nurse's Notes [facility] Name: Kyler Rushing Age: 75 yrs Sex: Female : 1945 Arrival Date: 02/15/2021 Time: 14:40 Bed 7 Private MD: Diagnosis: Urinary tract infection, site not specified;Weakness;Delirium due to known physiological condition Presentation: 02/15 14:40 Chief complaint: EMS states: Slid out of wheelchair onto floor this morning, c/o right hb sided back pain 8/10. On scene pt was seated in recliner, able to ambulate to stretcher unassisted. BGL 78, 90 after oral glucose. Coronavirus screen: At this time, the client does not indicate any symptoms associated with coronavirus-19. Ebola Screen: No symptoms or risks identified at this time. Initial Sepsis Screen: Does the patient meet any 2 criteria? No. Patient's initial sepsis screen is negative. Does the patient have a suspected source of infection? No. Patient's initial sepsis screen is negative. Risk Assessment: Do you want to hurt yourself or someone else? Patient reports no desire to harm self or others. Onset of symptoms was February 15, 2021. 14:40 Method Of Arrival: EMS: [facility] hb 14:40 Acuity: TOVA 4 hb 14:48 Acuity: TOVA 3 hb Triage Assessment: 14:44 General: Appears in no apparent distress. Behavior is calm, cooperative. Pain: Pain hb currently is 8 out of 10 on a pain scale. EENT: No signs and/or symptoms were reported regarding the EENT system. Neuro: Level of Consciousness is awake, alert, obeys commands, Oriented to person, place, time, situation. Cardiovascular: Patient's skin is warm and dry. Respiratory: Respiratory effort is even, unlabored, Respiratory pattern is regular, symmetrical. GI: No signs and/or symptoms were reported involving the gastrointestinal system. : No signs and/or symptoms were reported regarding the genitourinary system. Derm: Skin is pink, warm \T\ dry. Musculoskeletal: Reports right sided back pain. Historical: - Allergies: 14:44 No Known Allergies; hb - Home Meds: 14:44 atorvastatin 40 mg Oral tab 1 tab nightly [Active]; esomeprazole magnesium 40 mg Oral hb cpDR 1 cap once daily [Active]; isosorbide mononitrate 30 mg Oral Tb24 1 tab once daily [Active]; levothyroxine 200 mcg tab 1 tab once daily [Active]; metformin 500 mg Oral Tb24 1 tab once daily [Active]; Plavix 75 mg Oral tab 1 tab once daily [Active]; - PMHx: 14:44 Diabetes - IDDM; High Cholesterol; Hypertension; hb - Immunization history:: Adult Immunizations up to date. - Social history:: Smoking status: Patient denies any tobacco usage or history of. - Family history:: not pertinent. - Hospitalizations: : No recent hospitalization is reported. Screenin:45 Abuse screen: Denies threats or abuse. Denies injuries from another. Nutritional hb screening: No deficits noted. Tuberculosis screening: No symptoms or risk factors identified. Fall Risk Total Coronado Fall Scale indicates Low Risk Score (25-44 pts). Fall prevention measures have been instituted. Side Rails Up X 2 Frequent Obs/Assesments occuring As available Patient and Family Educated on Fall Prevention Program and strategies. Assessment: 14:45 General: see triage assessment.. hb 15:30 Reassessment: Patient appears in no apparent distress at this time. Patient and/or hb family updated on plan of care and expected duration. Pain level reassessed. Patient is alert, oriented x 3, equal unlabored respirations, skin warm/dry/pink. 16:30 Reassessment: Patient appears in no apparent distress at this time. Patient and/or hb family updated on plan of care and expected duration. Pain level reassessed. Patient is alert, oriented x 3, equal unlabored respirations, skin warm/dry/pink. 17:30 Reassessment: Patient appears in no apparent distress at this time. Patient and/or hb family updated on plan of care and expected duration. Pain level reassessed. Patient is alert, oriented x 3, equal unlabored respirations, skin warm/dry/pink. 18:26 Reassessment: Patient appears in no apparent distress at this time. Patient is alert, hb oriented x 3, equal unlabored respirations, skin warm/dry/pink. Admission ordered, awaiting room assignment at this time. 19:07 Reassessment: Patient appears in no apparent distress at this time. Patient and/or ld1 family updated on plan of care and expected duration. Pain level reassessed. Patient is alert, oriented x 3, equal unlabored respirations, skin warm/dry/pink. Vital Signs: 14:40 BP 134 / 43; Pulse 88; Resp 16; Temp 98.1; Pulse Ox 100% on R/A; Pain 8/10; hb 15:00 BP 124 / 68; Pulse 86; Resp 15; Pulse Ox 98% on R/A; hb 16:30 BP 138 / 76; Pulse 85; Resp 16; Pulse Ox 99% on R/A; hb 18:27 BP 153 / 80; Pulse 81; Resp 17; Pulse Ox 97% on R/A; hb 19:09 BP 119 / 68; Pulse 96; Resp 16 S; Pulse Ox 100% on R/A; ld1 ED Course: 14:40 Patient arrived in ED. hb 14:42 Josafat Haas MD is Attending Physician. rn 14:43 Triage completed. hb 14:44 Arm band placed on. hb 14:45 Patient has correct armband on for positive identification. Bed in low position. Call hb light in reach. Side rails up X2. 14:48 Sarika Hernández, RN is Primary Nurse. hb 15:05 Inserted saline lock: 22 gauge in right forearm, using aseptic technique. Blood hb collected. 15:17 CT Abd/Pelvis - Without Contrast In Process Unspecified. EDMS 15:17 CT Head C Spine In Process Unspecified. EDMS 16:17 Milind Haas MD is Hospitalizing Provider. rn 16:50 Urine Culture Sent. mh5 16:50 Procalcitonin Sent. mh5 16:50 Urine Culture Sent. mh5 19:34 No provider procedures requiring assistance completed. Patient admitted, IV remains in ld1 place. Administered Medications: 15:35 Drug: NS 0.9% 500 ml Route: IV; Rate: bolus; Site: right forearm; hb 16:45 Follow up: Response: No adverse reaction; IV Status: Completed infusion; IV Intake: hb 500ml 16:59 Drug: Rocephin (cefTRIAXone) 1 grams Route: IV; Rate: calculated rate; Site: right hb antecubital; 17:15 Follow up: Response: No adverse reaction; IV Status: Completed infusion; IV Intake: 10mlhb Intake: 16:45 IV: 500ml; Total: 500ml. hb 17:15 IV: 10ml; Total: 510ml. hb Outcome: 16:17 Decision to Hospitalize by Provider. rn 19:35 Admitted to Med/surg accompanied by nurse, via stretcher, Report called to floor RN, miate1 questions/concerns addressed 19:35 Condition: stable 19:35 Instructed on the need for admit. 19:58 Patient left the ED. jb4 Signatures: Dispatcher [employer] EDMS Josafat Haas MD MD rn Baxter, Heather, RN RN Xavier Boone RN RN Miriam [facility] Keila Lau RN RN ld1
--- NOTE | 2021-02-15 16:18 | EDPHYS ---
Physician Documentation [facility] Name: Kyler Rushing Age: 75 yrs Sex: Female : 1945 Arrival Date: 02/15/2021 Time: 14:40 Bed 7 Private MD: ED Physician Josafat Haas HPI: 02/15 15:06 This 75 yrs old Black Female presents to ER via EMS with complaints of Back Pain. rn 15:06 The patient presents with pain that is acute. The symptoms are located in the low back. rn Onset: The symptoms/episode began/occurred today. The pain does not radiate. Associated signs and symptoms: Pertinent positives: weakness, Pertinent negatives: abdominal pain, chest pain, constipation, dysuria, fever, hematuria, incontinence, nausea, numbness, tingling, urinary retention. Modifying factors: The patient symptoms are alleviated by nothing, the patient symptoms are aggravated by any movement. Severity of symptoms: At their worst the symptoms were mild, in the emergency department the symptoms are unchanged. The patient has not experienced similar symptoms in the past. Per EMS report, called out for possible fall, person at home states caught them and didn't fall to floor, but patient reports hit bed, patient reports right lower back/flank pain, and generalized weakness. No syncope. No chest pain/sob/abd pain/vomiting/diarrhea. No trauma or pain to extremities, denies hip pain. . Historical: - Allergies: 14:44 No Known Allergies; hb - Home Meds: 14:44 atorvastatin 40 mg Oral tab 1 tab nightly [Active]; esomeprazole magnesium 40 mg Oral hb cpDR 1 cap once daily [Active]; isosorbide mononitrate 30 mg Oral Tb24 1 tab once daily [Active]; levothyroxine 200 mcg tab 1 tab once daily [Active]; metformin 500 mg Oral Tb24 1 tab once daily [Active]; Plavix 75 mg Oral tab 1 tab once daily [Active]; - PMHx: 14:44 Diabetes - IDDM; High Cholesterol; Hypertension; hb - Immunization history:: Adult Immunizations up to date. - Social history:: Smoking status: Patient denies any tobacco usage or history of. - Family history:: not pertinent. - Hospitalizations: : No recent hospitalization is reported. ROS: 15:06 Constitutional: Negative for fever, chills, and weight loss, Eyes: Negative for injury, rn pain, redness, and discharge, Neck: Negative for injury, pain, and swelling, Cardiovascular: Negative for chest pain, palpitations, and edema, Respiratory: Negative for shortness of breath, cough, wheezing, and pleuritic chest pain, Abdomen/GI: Negative for abdominal pain, nausea, vomiting, diarrhea, and constipation, Back: + right lower back pain : Negative for injury, bleeding, discharge, and swelling, MS/Extremity: Negative for injury and deformity, Skin: Negative for injury, rash, and discoloration, Neuro: Negative for headache, numbness, tingling, and seizure. Exam: 15:06 Constitutional: Overweight female, no acute distress, appears weak but able to situp rn on her own power. Head/Face: Normocephalic, atraumatic. ENT: dry MM Neck: No midline tenderness Chest/axilla: Normal chest wall appearance and motion. Nontender with no deformity. No lesions are appreciated. Cardiovascular: Regular rate and rhythm. No pulse deficits. Respiratory: No increased work of breathing, no retractions or nasal flaring. Abdomen/GI: Soft, non-tender Back: No spinal tenderness, + mild tenderness right lower back. Skin: Warm, dry with normal turgor. Normal color with no rashes, no lesions, and no evidence of cellulitis. MS/ Extremity: Pulses equal, no cyanosis. Neurovascular intact. Full, normal range of motion. Equal circumference. Neuro: Awake and alert, GCS 15, oriented to person, place, not time. Cranial nerves II-XII grossly intact. Motor strength 4/5 in all extremities. Sensory grossly intact. Vital Signs: 14:40 BP 134 / 43; Pulse 88; Resp 16; Temp 98.1; Pulse Ox 100% on R/A; Pain 8/10; hb 15:00 BP 124 / 68; Pulse 86; Resp 15; Pulse Ox 98% on R/A; hb 16:30 BP 138 / 76; Pulse 85; Resp 16; Pulse Ox 99% on R/A; hb 18:27 BP 153 / 80; Pulse 81; Resp 17; Pulse Ox 97% on R/A; hb 19:09 BP 119 / 68; Pulse 96; Resp 16 S; Pulse Ox 100% on R/A; ld1 MDM: 14:42 Patient medically screened. rn 16:13 Differential diagnosis: UTI, back injury, strain, delirium, dehydration, subdural rn hematoma. Data reviewed: vital signs, nurses notes, lab test result(s), radiologic studies, CT scan, and as a result, I will admit patient. Counseling: I had a detailed discussion with the patient and/or guardian regarding: the historical points, exam findings, and any diagnostic results supporting the discharge/admit diagnosis, lab results, radiology results, the need for further work-up and treatment in the hospital. Response to treatment: the patient's symptoms have mildly improved after treatment, and as a result, I will admit patient. Admission orders: after a detailed discussion of the patient's condition and case, the admit orders are written by me. ED course: Pt seems more confused as time goes on, + generalized weakness, + UTI, will send cultures and given abx, admitted to Dr. Haas. CT head no acute findings, ct abdomen/pelvis no acute findings. . 02/15 14:44 Order name: CBC with Diff; Complete Time: 15:33 02/15 14:44 Order name: Basic Metabolic Panel; Complete Time: 15:33 02/15 14:44 Order name: Protime (+inr); Complete Time: 15:33 02/15 14:44 Order name: Ptt, Activated; Complete Time: 15:33 02/15 14:44 Order name: Urine Microscopic Only 02/15 15:16 Order name: Glucose, Ancillary Testing; Complete Time: 15:26 [facility] 02/15 15:57 Order name: Urine Dipstick-Ancillary; Complete Time: 16:04 [facility] 02/15 16:05 Order name: Urine Culture 02/15 16:05 Order name: Blood Culture Adult (2) 02/15 16:05 Order name: Procalcitonin 02/15 16:06 Order name: Urine Culture [facility] 02/15 16:06 Order name: Blood Culture [facility] 02/15 16:06 Order name: Procalcitonin [facility] 02/15 14:44 Order name: CT Head C Spine; Complete Time: 15:26 02/15 14:44 Order name: CT Abd/Pelvis - Without Contrast; Complete Time: 15:33 02/15 14:44 Order name: IV Start; Complete Time: 15:06 02/15 14:44 Order name: Urine Dipstick-Ancillary (obtain specimen); Complete Time: 15:53 rn 02/15 14:44 Order name: Glucose Level; Complete Time: 15:06 rn 02/15 14:44 Order name: EKG; Complete Time: 14:45 rn 02/15 14:44 Order name: EKG - Nurse/Tech; Complete Time: 14:59 rn 02/15 15:53 Order name: Straight Cath - Urine; Complete Time: 16:15 hb 02/15 17:31 Order name: SARS-COV-2 RT PCR EDMS Administered Medications: 15:35 Drug: NS 0.9% 500 ml Route: IV; Rate: bolus; Site: right forearm; hb 16:45 Follow up: Response: No adverse reaction; IV Status: Completed infusion; IV Intake: hb 500ml 16:59 Drug: Rocephin (cefTRIAXone) 1 grams Route: IV; Rate: calculated rate; Site: right hb antecubital; 17:15 Follow up: Response: No adverse reaction; IV Status: Completed infusion; IV Intake: 10mlhb Disposition: 02/15/21 16:17 Hospitalization ordered by Milind Haas for Inpatient Admission. Preliminary diagnosis are Urinary tract infection, site not specified, Weakness, Delirium due to known physiological condition. - Bed requested for Telemetry/MedSurg (Inpatient). - Status is Inpatient Admission. jb4 - Condition is Stable. - Problem is new. - Symptoms are unchanged. Signatures: Dispatcher [employer] EDTX Alexa Pradhan RN RN Josafat Haas MD MD rn Baxter, Heather, RN RN Xavier Boone RN RN jb4 Corrections: (The following items were deleted from the chart) 16:36 16:14 CORONAVIRUS+MR.LAB.BRZ ordered. EDTX EDTX 18:35 16:17 Hospitalization Ordered by Milind Haas MD for Inpatient Admission. Preliminary diagnosis is Urinary tract infection, site not specified; Weakness; Delirium due to known physiological condition. Bed requested for Telemetry/MedSurg (Inpatient). Status is Inpatient Admission. Condition is Stable. Problem is new. Symptoms are unchanged. rn 19:58 18:35 02/15/2021 16:17 Hospitalization Ordered by Milind Haas MD for Inpatient jb4 Admission. Preliminary diagnosis is Urinary tract infection, site not specified; Weakness; Delirium due to known physiological condition. Bed requested for Telemetry/MedSurg (Inpatient). Status is Inpatient Admission. Condition is Stable. Problem is new. Symptoms are unchanged. dw
[2021-02-15 16:34] LABS: Urine Bacteria >50 /HPF (<20); Urine RBC <5 /HPF (NONE SEEN)
--- NOTE | 2021-02-15 16:53 | P.HP ---
Certification for Inpatient Patient admitted to: Inpatient With expected LOS: >2 Midnights Practitioner: I am a practitioner with admitting privileges, knowledge of patient current condition, hospital course, and medical plan of care. Services: Services provided to patient in accordance with Admission requirements found in Title 42 Section 412.3 of the Code of Federal Regulations Patient History Date of Service: 02/15/21 Reason for admission: AMS, UTI, Fall History of Present Illness: 75yo F, PMH: NIDDM2, HTN, HLD, hypothyroid, recent GI bleed. Brought in by EMS after fall at home. Patient is slow to respond, alert/oriented x3, but having some confusion / can't remember all details. Thinks she slipped, didn't lose consciousness. Per EMS, patient was caught and didn't hit self. She reports some L flank / back pain since the fall. Denies fever/chills/n/v/d, no chest pain, no abd pain, no new numbness/tingling, does endorse some increased urinary frequency, generalized weakness and feeling more tired / sleeping more than usual. Workup in ED - CT head/cspine, abd/pelvis - without significant acute process. UA concerning for UTI. Allergies No Known Allergies Allergy (Verified 01/01/21 22:06) Home Medications: Atorvastatin Calcium [Lipitor*] 40 mg PO BEDTIME 01/01/21 Clopidogrel Bisulfate [Plavix*] 75 mg PO DAILY 01/01/21 Isosorbide Mononitrate [Isosorbide Mononitrate ER] 30 mg PO DAILY 01/01/21 Levothyroxine Sodium [Levothyroxine] 200 mcg PO DAILY 01/01/21 Metformin ER [Glucophage ER*] 500 mg PO DAILY 01/01/21 Multivitamin with Iron [Daily Vitamin + Iron] 1 each PO DAILY #90 tablet 01/03/21 Pantoprazole [Protonix Tab] 40 mg PO DAILY #90 tab 01/03/21 Sucralfate [Carafate -Tab] 1 gm PO ACHS #120 tab 01/03/21 - Past Medical/Surgical History Diabetic: Yes -: hyperlipidemia -: Type 2 diabetes -: HTN -: Thyroid surgery -: right shoulder - Family History Father -: Hypertension, Diabetes Mother -: Hypertension, Diabetes, Cancer Notes: stomach cancer - Social History Smoking Status: Never smoker Alcohol use: No CD- Drugs: No Caffeine use: Yes Place of Residence: Home (with daughter) Review of Systems 10-point ROS is otherwise unremarkable Physical Examination - Physical Exam General: Alert, Oriented x3, Confused HEENT: Sclerae nonicteric Neck: Supple, No LAD Respiratory: Clear to auscultation bilaterally, Normal air movement Cardiovascular: Regular rate/rhythm, Edema (trace-1+ b/l to mid-tib) Gastrointestinal: Soft and benign, Non-distended, No tenderness Musculoskeletal: No erythema Integumentary: No rashes, No significant lesion Neurological: Normal strength at 5/5 x4 extr, Cranial nerves 3-12 intact - Studies Laboratory Data (last 24 hrs) 02/15/21 15:05: PT 11.7, INR 1.02, APTT 27.6 02/15/21 15:05: Sodium 144, Potassium 4.0, BUN 14, Creatinine 0.78, Glucose 94 02/15/21 15:05: WBC 8.00, Hgb 9.4 L, Hct 28.9 L, Plt Count 377 Assessment and Plan - Advance Directives Does patient have a Living Will: No Does patient have a Durable POA for Healthcare: No Physician Review Additional Text: Problem List Urinary tract infection, cystitis Acute metabolic encephalopathy NIDDM2 HTN HLD h/o GI Bleed -does not appear septic, vitals stable / WNL -UA concerning for UTI, pt with AMS -she does endorse increased urinary frequency -CT head/cspine negative for bleed / acute process -IV rocephin, gentle IVF -f/u urine and blood cultures -obtain/confirm home medications and restart as appropriate -pt can't recall all meds she currently takes, but reports no recent changes -pt is alert/orientedx3 but does have some confusion and slow to respond to questions, unclear how off from baseline -will try to contact family -pt reports she is DNR -PT consulted VTE: lovenox Code: DNR Dispo: anticipate dc home, likely in 48hrs, pending cultures and improvement Time Spent Managing Pts Care (In Minutes): 60
[2021-02-15 20:00] VITALS: BMI 35.4
[2021-02-15] MEDS: ACETAMINOPHEN 500 MG TAB PO PRN (20:21)
[2021-02-15] MEDS: NA CHLORIDE 0.9% 1,000 ML IV SCH (20:21)
[2021-02-15] MEDS: INSULIN -REGULAR HUMAN 50 UNIT/0.5 ML ML SQ SCH (21:00)
[2021-02-15 22:05] LABS: Thyroid Stimulating Hormone 0.247 uIU/mL (0.360-3.740)
[2021-02-16 05:35] LABS: Absolute Lymphocytes (CBC) 1.4 K/uL (0.7-4.9); Basophils % 0.8 % (0-1.3); Hematocrit 27.3 % (36.0-45.0); Lymphocytes % 27.6 % (15.3-44.8); MPV 7.6 fL (7.6-11.3); RBC Red Blood Cell Count 3.21 M/uL (3.86-4.86)
[2021-02-16 05:59] LABS: ALT/SGPT 18 U/L (12-78); AST/SGOT 14 U/L (15-37); Albumin 2.7 g/dL (3.4-5.0); Alkaline Phosphatase 70 U/L (45-117); BUN Blood Urea Nitrogen 13 mg/dL (7-18); Bicarbonate 25 mmol/L (21-32); Bilirubin Total 0.2 mg/dL (0.2-1.0); Glucose Level 84 mg/dL (74-106); Magnesium 1.8 mg/dL (1.8-2.4); Phosphorus 3.4 mg/dL (2.5-4.9); Potassium 3.6 mmol/L (3.5-5.1); Protein, Total 6.5 g/dL (6.4-8.2); Sodium Level 145 mmol/L (136-145)
[2021-02-16] MEDS ORDERED: MAGNESIUM SULFATE 1 gm IVPB 1 GM/100 ML BAG IV ONE (07:30)
[2021-02-16] MEDS: INSULIN -REGULAR HUMAN 50 UNIT/0.5 ML ML SQ SCH ×4 (07:30→21:00)
--- NOTE | 2021-02-16 08:59 | P.PN ---
Subjective Date of Service: 02/16/21 Chief Complaint: AMS, UTI, Fall Subjective: Improving (feels slightly better today, seems more alert, still slow to answer, oriented x3. feels weak) Review of Systems 10-point ROS is otherwise unremarkable Physical Examination - Vital Signs Temperature: 97.7 F Blood Pressure: 107/55 Pulse: 84 Respirations: 18 Pulse Ox (%): 97 - Studies Laboratory Data (last 24 hrs) 02/15/21 15:05: PT 11.7, INR 1.02, APTT 27.6 02/15/21 15:05: Sodium 144, Potassium 4.0, BUN 14, Creatinine 0.78, Glucose 94 02/15/21 15:05: WBC 8.00, Hgb 9.4 L, Hct 28.9 L, Plt Count 377 Assessment & Plan Physician Review Additional Text: Physical Exam General: Alert, Oriented x3, slow to answer but appropriate HEENT: Sclerae nonicteric Neck: Supple, No LAD Respiratory: Clear to auscultation bilaterally, Normal air movement Cardiovascular: Regular rate/rhythm, Edema (trace bilaterally) Gastrointestinal: Soft and benign, Non-distended, No tenderness Musculoskeletal: No erythema Integumentary: No rashes, No significant lesion Problem List Urinary tract infection, cystitis Acute metabolic encephalopathy, improving DM2, insulin dependent HTN HLD h/o GI Bleed h/o left sided weakness, ambulates with assistance -does not appear septic, vitals stable -UA concerning for UTI, pt with AMS in ER, and seems to be improving; increased urinary frequency at home -CT head/cspine negative for bleed / acute process -continue IV rocephin, gentle IVF -urine: GNR, blood pending -obtain/confirm home medications, pt can't recall all meds she currently takes, but reports no recent changes -pt is alert/orientedx3 but does have some mild confusion on specifics and slow to respond to questions, spoke with daughter today, seems to be near baseline -pt reports she is DNR -PT consulted VTE: SCDs, recent GI bleed Code: DNR Dispo: anticipate dc home, likely in 24-48hrs, pending cultures and further improvement Daughter updated Time Spent Managing Pts Care (In Minutes): 40
[2021-02-16] MEDS ORDERED: ENOXAPARIN 40 MG/0.4 ML SQ SCH (09:00)
[2021-02-16] MEDS ORDERED: POTASSIUM CL SA 10 MEQ TAB PO ONE (09:00)
[2021-02-16] MEDS ORDERED: CEFTRIAXONE 1 GM/NS 50 ML 1 GM/50 ML BAG IV SCH (09:00)
[2021-02-16] MEDS: NA CHLORIDE 0.9% 1,000 ML IV SCH (09:49)
[2021-02-16] MEDS: CEFTRIAXONE/SWI 1gm 1 GM/10 ML SYR IV SCH (09:50)
[2021-02-16] MEDS: PANTOPRAZOLE 40MG TABLET PO SCH (09:52)
[2021-02-16] MEDS: ACETAMINOPHEN 500 MG TAB PO PRN (12:11)
[2021-02-16] MEDS: SUCRALFATE 1 GM TABLET PO SCH ×3 (12:11→21:29)
[2021-02-16] MEDS ORDERED: ATORVASTATIN 20 MG TAB PO SCH (21:00)
[2021-02-17] MEDS: NA CHLORIDE 0.9% 1,000 ML IV SCH (00:20)
[2021-02-17 05:47] LABS: Absolute Lymphocytes (CBC) 1.1 K/uL (0.7-4.9); Basophils % 0.6 % (0-1.3); Hematocrit 27.7 % (36.0-45.0); Lymphocytes % 22.6 % (15.3-44.8); MPV 7.6 fL (7.6-11.3); RBC Red Blood Cell Count 3.25 M/uL (3.86-4.86)
[2021-02-17 06:07] LABS: BUN Blood Urea Nitrogen 9 mg/dL (7-18); Bicarbonate 24 mmol/L (21-32); Glucose Level 111 mg/dL (74-106); Magnesium 1.9 mg/dL (1.8-2.4); Potassium 3.6 mmol/L (3.5-5.1); Sodium Level 145 mmol/L (136-145)
[2021-02-17] MEDS: INSULIN -REGULAR HUMAN 50 UNIT/0.5 ML ML SQ SCH ×2 (08:15→11:30)
[2021-02-17] MEDS: PANTOPRAZOLE 40MG TABLET PO SCH (08:51)
[2021-02-17] MEDS: CEFTRIAXONE/SWI 1gm 1 GM/10 ML SYR IV SCH (08:51)
[2021-02-17] MEDS: SUCRALFATE 1 GM TABLET PO SCH ×2 (08:51→12:25)
[2021-02-17] MEDS ORDERED: POTASSIUM CL SA 10 MEQ TAB PO ONE (09:00)
[2021-02-17 09:05] VITALS: O2SAT 96
[2021-02-17 12:13] VITALS: BP 108/58; TEMP 97.5
--- NOTE | 2021-02-17 15:14 | P.DS ---
Admission Date: 02/15/21 Discharge Date: 02/17/21 Disposition: [place] [facility] Discharge Condition: GOOD Reason for Admission: AMS, UTI, Fall Procedures: CT abd/pelvis (02/15): FINDINGS: The lower lung chong are clear.Moderate hiatal hernia. The liver, spleen, pancreas, adrenal glands are within normal limits for a limited non-contrast examination.Small nonobstructing left renal calculi. No bowel obstruction, free air, free fluid or abscess. Small fat containing umbilical. The appendix is normal. The osseous structures are within normal limits. IMPRESSION: No acute intra-abdominal or pelvic findings. A limited non-contrast examination was performed as detailed. CT Head/c spine (02/15): FINDINGS: CT HEAD WITHOUT CONTRAST: No acute hemorrhage, hydrocephalus or extra-axial collection is identified.No areas of brain edema or midline shift. The paranasal sinuses and mastoids are clear.The calvarium is intact. CT CERVICAL SPINE WITHOUT CONTRAST: No fracture or subluxation.No prevertebral soft tissues swelling is identified. IMPRESSION: No acute intracranial or cervical spine findings. Problem List Urinary tract infection, cystitis Acute metabolic encephalopathy, resolved h/o dementia DM2, insulin dependent HTN HLD h/o GI Bleed h/o left sided weakness, ambulates with assistance Brief History of Present Illness: 75yo F, PMH: NIDDM2, HTN, HLD, hypothyroid, recent GI bleed. Brought in by EMS after fall at home. Patient is slow to respond, alert/oriented x3, but having some confusion / can't remember all details. Thinks she slipped, didn't lose consciousness. Per EMS, patient was caught and didn't hit self. She reports some L flank / back pain since the fall. Denies fever/chills/n/v/d, no chest pain, no abd pain, no new numbness/tingling, does endorse some increased urinary frequency, generalized weakness and feeling more tired / sleeping more than usual. Workup in ED - CT head/cspine, abd/pelvis - without significant acute process. UA concerning for UTI. Hospital Course: Patient received empiric antibiotic coverage. She had improvement in her symp toms / mentation. She was feeling better, strength returned, and was discharged home. To complete a 2 week course of antibiotics. Disposition was discussed at length with daughter who stated patient has adamantly refused SNF in the past, and despite how much assistance her mother needs, she will do whatever it takes to have her at home and respect her mother's wishes. Patient was at her baseline - AAO x 2-3, with confusion at times, slow to respond to questions Vital Signs/Physical Exam: Physical Exam General: Alert, Oriented x3, slow to answer but appropriate HEENT: Sclerae nonicteric Neck: Supple, No LAD Respiratory: Clear to auscultation bilaterally, Normal air movement Cardiovascular: Regular rate/rhythm, Edema (trace bilaterally) Gastrointestinal: Soft and benign, Non-distended, No tenderness Musculoskeletal: No erythema Integumentary: No rashes, No significant lesion Temp Pulse Resp BP Pulse Ox 97.5 F 86 16 108/58 L 98 02/17/21 12:00 02/17/21 12:00 02/17/21 12:00 02/17/21 12:00 02/17/21 12:00 Laboratory Data at Discharge: WBC 5.10 K/uL (4.3-10.9) 02/17/21 05:21 Hgb 8.7 g/dL (12.0-15.0) L 02/17/21 05:21 Hct 27.7 % (36.0-45.0) L 02/17/21 05:21 Plt Count 322 K/uL (152-406) 02/17/21 05:21 PT 11.7 SECONDS (9.5-12.5) 02/15/21 15:05 INR 1.02 02/15/21 15:05 APTT 27.6 SECONDS (24.3-36.9) 02/15/21 15:05 Sodium 145 mmol/L (136-145) 02/17/21 05:21 Potassium 3.6 mmol/L (3.5-5.1) 02/17/21 05:21 BUN 9 mg/dL (7-18) 02/17/21 05:21 Creatinine 0.60 mg/dL (0.55-1.3) 02/17/21 05:21 Glucose 111 mg/dL (74-106) H 02/17/21 05:21 Phosphorus 3.4 mg/dL (2.5-4.9) 02/16/21 05:03 Magnesium 1.9 mg/dL (1.8-2.4) 02/17/21 05:21 Total Bilirubin 0.2 mg/dL (0.2-1.0) 02/16/21 05:03 AST 14 U/L (15-37) L 02/16/21 05:03 ALT 18 U/L (12-78) 02/16/21 05:03 Alkaline Phosphatase 70 U/L (45-117) 02/16/21 05:03 Home Medications: Atorvastatin Calcium [Lipitor*] 40 mg PO BEDTIME 01/01/21 Isosorbide Mononitrate [Isosorbide Mononitrate ER] 30 mg PO DAILY 01/01/21 Levothyroxine Sodium [Levothyroxine] 200 mcg PO DAILY 01/01/21 Metformin ER [Glucophage ER*] 500 mg PO DAILY 01/01/21 Multivitamin with Iron [Daily Vitamin + Iron] 1 each PO DAILY #90 tablet 01/03/21 Pantoprazole [Protonix Tab*] 40 mg PO DAILY #90 tab 01/03/21 Sucralfate [Carafate*] 1 gm PO ACHS #120 tab 01/03/21 Insulin -Regular Human [Novolin -R*] 20 unit SQ BEDTIME 02/15/21 levoFLOXacin [Levaquin] 750 mg PO DAILY 7 Days #7 tab 02/17/21 New Medications: levoFLOXacin [Levaquin] 750 mg PO DAILY 7 Days #7 tab Physician Discharge Instructions: You were found to have a urinary tract infection. This is likely what caused you to have more weakness and confusion. You are discharged with 7 more days of antibiotics. Follow up with your PCP in 3-5 days. Diet: ADA Activity: Fall precautions Followup: NONE,NONE [Primary Care Provider] - Time spent managing pt's care (in minutes): 45
== END 2021-02-17 15:37 | disposition home health service (06) | DRG 689 ==
LOC: ER 14:39 → ERHOLD 17:00 → 2ND 19:32
PROVIDERS: ADMIT Hospitalist; ATTEND Hospitalist
DX: N30.90 Cystitis, unspecified without hematuria (principal); G93.41 Metabolic encephalopathy; E11.9 Type 2 diabetes mellitus without complications; E03.9 Hypothyroidism, unspecified; I10 Essential (primary) hypertension; E78.5 Hyperlipidemia, unspecified; Z66 Do not resuscitate; Z79.890 Hormone replacement therapy; Z79.899 Other long term (current) drug therapy; Z79.02 Long term (current) use of antithrombotics/antiplatelets; Z79.4 Long term (current) use of insulin; Z20.822 Contact with and (suspected) exposure to COVID-19
CPT/HCPCS: 36415; 70450; 72125; 74176; 80048; 80053; 81003; 81015; 82947; 83735; 84100; 84145; 84439; 84443; 85025; 85610; 85730; 87040; 87077; 87086; 87088; 87186; 87205; 93005; 94760; 96361; 96365; 97116; 97161; 97530; 99285; J0696; J3475; J7030; J7040; U0003

== ENCOUNTER 2021-02-27 10:11 | Emergency (ER) | payer MEDICARE, OTHER ==
--- OUTSIDE RECORDS SUMMARY | 2021-02-27 10:18 | XMS REPORT | Continuity of Care Document ---
:1945 Author Organization [facility] t Address [address] [place] [address] Care Team Providers Name Role Phone Erica CHIU Primary Care Physician Brigido CHIU Attending Clinician Jaylan Kang PhD Attending Clinician Payers Payer Name Policy Type Policy Effective Date Expiration Date Sour ce Number [facility] [id number] 2020 [place] MEDICARE(WELLME 00:00:00 Eveline Juarez) AARP MEDICARE ADVANTAGE [id number] 09/2019-Present MO Problems Condition Condition Condition Status Onset Resolution Last Treating Co mments Source Name Details Category Date Date Treatment Clinician Date Dementia Dementia Problem Active [place] 6-10 da 00:00: Medical 00 Group Hypothyroi Hypothyroi Problem Active [facility] dism dism 03-14 da 00:00: Medical 00 Group Type 2 [...] Comments Start Date Stop Date Source Natural father Hypertension [place] [facility] Natural father Diabetes [facility] thodist Natural father Heart disease [facility] Natural mother Heart disease [facility] Natural mother Hypertension [facility] Social History Social Habit Start Date Stop Date Quantity Comments [facility] Std Drinks History [employer] Meth odist Alcohol Binge Exposure to Not sure [place] [facility] SARS-CoV-2 (event) Tobacco use and 2020-04-27 2020-04-27 Never used [facility] ethodist exposure 00:00:00 00:00:00 Alcohol intake 2020-04-27 2020-04-27 Lifetime [place] thodist 00:00:00 00:00:00 non-drinker (finding) History [facility] 2020-04-27 2020-04-27 1 [place] [facility] Alcohol Frequency 00:00:00 00:00:00 Sex [birth year] [facility] ethodist 00:00:00 00:00:00 Smoking Status Start Date Stop Date Source Former Smoker [facility] Never smoker [place] [facility] Medications Ordered Filled Start Stop Current Ordering Indication Dosage Frequency Signature Comments Components Source Medication Medication Date Date Medication? Clinician (SIG) Name Name acetaminoph Yes acute pain 1{tbl} Q6H Take 1 [place] en-codeine 8-19 tablet by Meth adolph (TYLENOL 09:06: mouth st WITH 32 every 6 CODEINE #3) (six) 300-30 mg hours as per tablet needed for moderate pain .acute pain. metFORMIN Yes 500mg QD Take [address] [...] Source Name Name influenza, influenza, 2020-06-17 Completed [place] injectable, injectable, 00:00:00 Medical Grou p quadrivalent quadrivalent influenza, high dose influenza, high 2019-07-15 Completed [place] seasonal dose seasonal 16:23:03 Medical Bon up Vital Signs Vital Name Observation Time Observation Value Comments Source BP Diastolic 2021-01-12 00:00:00 74 [facility]Hg[facility] Height 2021-01-12 00:00:00 62 [in_i] [facility] BP Systolic 2021-01-12 00:00:00 139 mm[Hg] [facility] BP Diastolic 2020-11-21 00:00:00 87 mm[Hg] [facility] Height 2020-11-21 00:00:00 62 [in_i] [facility] BMI (Body Mass 2020-11-21 00:00:00 38.8 kg/m2 [facility]) Group BP Systolic 2020-11-21 00:00:00 158 mm[Hg] [facility] Body Weight 2020-11-21 00:00:00 3393 [oz_av] [facility] BP Diastolic 2020-07-11 00:00:00 [...] (Body Mass 2020-05-10 00:00:00 37.9 kg/m2 [facility]) Group Body Weight 2020-05-10 00:00:00 3312 [oz_av] [facility] BP Diastolic 2020-04-11 00:00:00 87 mm[Hg] [facility] Height 2020-04-11 00:00:00 62 [in_i] [facility] BMI (Body Mass 2020-04-11 00:00:00 37.9 kg/m2 [facility]) Group BP Systolic 2020-04-11 00:00:00 [...] (Body Mass 2020-02-08 00:00:00 41.4 kg/m2 [facility]) Group BP Systolic 2020-02-08 00:00:00 [...] Group Body Weight 2018-10-30 00:00:00 3923 [oz_av] [facility] Systolic blood 2020-04-27 08:59:00 140 mm[Hg] [place] [facility] pressure Diastolic blood 2020-04-27 08:59:00 74 mm[Hg] [place] [facility] pressure Heart rate 2020-04-27 08:59:00 60 /min [place] [facility] Body temperature 2020-04-27 08:59:00 35.94 [place] [facility] Body weight 2020-04-27 08:59:00 93.441 kg [place] [facility] Procedures Procedure Date / Time Performing Source Performed Clinician unlisted imaging order 2020-03-31 [place] 00:00:00 Medical Group XR, ribs, bilateral 2020-03-31 [place] 00:00:00 Medical Group MRI, brain, w/o contrast 2019-07-02 [place] 00:00:00 [facility] Group US, duplex, carotid artery 2019-07-02 [place] 00:00:00 [facility] Group US, echocardiogram, transthoracic, 2019-07-02 [place] complete, w/ color flow 00:00:00 Medical Group holter monitor 2019-07-02 [place] 00:00:00 Medical Group holter monitor 2019-06-29 [place] 00:00:00 Medical Group MAMMO, screening, digital, 2019-06-02 [place] bilateral 00:00:00 Medical Group MAMMO, screening, digital, 2019-04-14 [place] bilateral 00:00:00 Medical Group Thyroid Surgery 1979-09-09 [place] 00:00:00 Medical Group Hysterectomy [place] [facility] Shoulder Joint Surgery [facility] Appendectomy [place] [facility] Eye Surgery Procedure [facility] Esophagogastroduodenoscopy (Surg) [facility] Plan of Care Planned Activity Planned Date Details Comments Source Future Scheduled 2021-04-09 INFLUENZA VACCINE [place] [facility] Test 00:00:00 [code = INFLUENZA VACCINE] Future Scheduled 1996 BREAST CANCER [place] [facility] Test 00:00:00 SCREENING [code = BREAST CANCER SCREENING] Future Scheduled 1996 COLONOSCOPY SCREENING [place] [facility] Test 00:00:00 [code = COLONOSCOPY SCREENING] Future Scheduled 1996 SHINGLES VACCINES (#1) [place] [facility] Test 00:00:00 [code = SHINGLES VACCINES (#1)] Future Scheduled 1964 Hepatitis C screening [place] [facility] Test 00:00:00 (procedure) [code = 854246997] Future Scheduled 1958 COVID-19 VACCINE (1) [place] [facility] Test 00:00:00 [code = COVID-19 VACCINE (1)] Future Scheduled 1952 65+ PNEUMOCOCCAL [place] [facility] Test 00:00:00 VACCINE (1 of 2 - PPSV23) [code = 65+ PNEUMOCOCCAL VACCINE (1 of 2 - PPSV23)] Encounters Start End Encounter Admission Attending Care Care Encounter Source Date/Time Date/Time Type Type Clinicians Facility Department ID 2021-02-22 2021-02-22 Outpatient [facility] [id number] [place] 00:00:00 00:00:[address] 2021-01-12 2021-01-12 George [place] - [id number] [place] 00:00:00 00:00:00 Carlos A Contreras, Medical Medical MD: [address] [facility] [address], [place] [address] , Ph. 2020-11-21 2020-11-21 George ROBLES [place] - [id number] [place] 00:00:00 00:00:00 Dallas Borrego MD: [address] [place] [address], [place] [address] , Ph. 2020-07-11 2020-07-11 George MMG [place] - [id number] [place] 00:00:00 00:00:00 Dallas Borrego MD: [address] [place] [address], [place] [address] , Ph. 2020-05-10 2020-05-10 George MMG [place] - [id number] [place] 00:00:00 00:00:00 Dallas Borrego MD: [address] [place] [address], [place] [address] , Ph. 2020-04-27 2020-04-27 Outpatient [facility] [id number] [place] 00:00:00 00:00:[address] 2020-04-11 2020-04-11 George MMG [place] - [id number] [place] 00:00:00 00:00:00 Dallas Borrego MD: [address] [place] [address], [place] [address] , Ph. 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 2020-02-08 2020-02-08 George MMG [place] - [id number] [place] 00:00:00 00:00:00 Dallas Borrego MD: [address] [place] [address], [place] [address] , Ph. 2020-01-12 2020-01-12 Fede MM [place] - [id number] [place] 00:00:00 00:00:00 Alexandru Sanchez MD: Medical Medica l [address] [place] [address] General [address], [place] [address] , Ph. [phone] 2020-01-11 2020-01-11 Mary Ann MM [place] - [id number] [place] 00:00:00 00:00:00 Merly Toscano Medical Medical FOREIGN SERVICE TEACHER: [address] [place] [address] [address], [place] [address] , Ph. 2020-01-04 2020-01-04 George CISSE [place] - [id number] [place] 00:00:00 00:00:00 Dallas Borrego Medical MD: [address] [place] [address] [address], [place] [address] , Ph. 2019-11-04 2019-11-04 George CISSE [place] - [id number] [place] 00:00:00 00:00:00 Dallas Borrego MD: [address] [place] [address] 201, [place] [address] , Ph. 2019-08-17 2019-08-17 George ROBLES [place] - [id number] [place] 00:00:00 00:00:00 Dallas Borrego MD: [address] [place] [address] 201, [place] [address] , Ph. 2019-07-15 2019-07-15 George ROBLES [place] - [id number] [place] 00:00:00 00:00:00 Dallas Borrego MD: [address] [place] [address] 201, [place] [address] , Ph. 2019-07-02 2019-07-02 George ROBLES [place] - [id number] [place] 00:00:00 00:00:00 Dallas Borrego MD: [address] [place] [address] 201, [place] [address] , Ph. 2019-06-08 2019-06-08 George CISSE [place] - [id number] [place] 00:00:00 00:00:00 Dallas Borrego MD: [address] [place] [address] 201, [place] [address] , Ph. 2019-06-02 2019-06-02 George CISSE [place] - [id number] [place] 00:00:00 00:00:00 Dallas Borrego MD: [address] [place] [address] 201, [place] [address] , Ph. 2019-04-14 2019-04-14 George CISSE [place] - [id number] [place] 00:00:00 00:00:00 Dallas Borrego MD: [address] [place] [address] [address], [place] [address] , Ph. 2019-04-08 2019-04-08 George CISSE [place] - [id number] [place] 00:00:00 00:00:00 Dallas Borrego MD: [address] [place] [address] 201, [place] [address] , Ph. 2019-02-03 2019-02-03 Randell CISSE [place] - [id number] [place] 00:00:00 00:00:00 Discovery onofre Blum MD: [address] [place] [address] [address], [place] [address] , Ph. 2018-10-30 2018-10-30 George CISSE [place] - [id number] [place] 00:00:00 00:00:00 Carlos A Contreras, Medical Medical MD: [address] [facility] [address], [place] [address] , Ph. Results Test Description Test Time [...] L MCV [Entitic volume] (test code = 50105-8) 96.2 fL 86-100 mean corpuscular hemoglobin (test [...] Blood (test code = 76.8 % 44.4-80.1 08049-9) Immature granulocytes [#/volume] in Blood (test code = 0.0 K/uL 0.0-0.03 14745-9) lymphocyte% (test code = lymphocyte%) 15.9 % 10.0-50.0 mono % (test code = mono %) 6.0 % 3.6-12.0 eos % (test code = eos %) 0.8 % 0.0-5.4 Basophils/100 leukocytes in Unspecified specimen (test code 0.1 % 0.1-1.2 = 86025-9) Band form neutrophils [#/volume] in Blood (test code = 5.73 K/uL 1.56-6.13 48308-6) Lymphocytes [#/volume] in Unspecified specimen by Automated 1.2 K/u L 1.18-3.74 count (test code = 11482-5) mono # (test code = mono #) 0.45 K/uL 0.24-0.86 eos # (test code = eos #) 0.06 K/uL 0.04-0.36 basophil # (test code = basophil #) 0.01 K/uL 0.01-0.08 NRBC% (test code = NRBC%) 1 /100 WBC 0-0.2 H NRBC# (test code = NRBC#) 0 K/uL [facility] metabolic 2000 panel - Serum or [id number] 03:00:00 Test Item Value Reference Range Interpretation [...] = 7.8 mg/dL 8.8-10.2 L calcium level) [facility] W Auto Differential panel - [id number] 03:00:00 Test Item Value Reference Range Interpretation Comments white blood count (test code = 7.5 K/uL 4.0-11.5 white blood count) red blood count (test code = red 2.90 M/uL 3.80-5.20 L blood count) hemoglobin (test code = 8.9 g/dL 10.5-15.7 L hemoglobin) hematocrit (test code = 27.9 % 34.0-50.0 L hematocrit) MCV [Entitic volume] (test code = 96.2 fL 86-100 80653-7) mean corpuscular hemoglobin (test 30.7 pg 26.2-33.4 [...] 44.4-80.1 leukocytes in Blood (test code = 73013-7) Immature granulocytes [#/volume] 0.0 K/uL 0.0-0.03 in Blood (test code = 34917-6) lymphocyte% (test code = 15.9 % 10.0-50.0 lymphocyte%) mono % (test code = mono %) 6.0 % 3.6-12.0 eos % (test code = eos %) 0.8 % 0.0-5.4 Basophils/100 leukocytes in 0.1 % 0.1-1.2 Unspecified specimen (test code = 41221-5) Band form neutrophils [#/volume] 5.73 K/uL 1.56-6.13 in Blood (test code = 66712-5) Lymphocytes [#/volume] in 1.2 K/uL 1.18-3.74 Unspecified specimen by Automated count (test code = 36349-7) mono # (test code = mono #) 0.45 K/uL 0.24-0.86 eos # (test code = eos #) 0.06 K/uL 0.04-0.36 basophil # (test code = basophil 0.01 K/uL 0.01-0.08 #) NRBC% (test code = NRBC%) 1 /100 WBC 0-0.2 H NRBC# (test code = NRBC#) 0 K/uL [facility] panel - Serum or [id number] 03:00:00 Test Item Value Reference Range Interpretation [...] = 7.8 mg/dL 8.8-10.2 L calcium level) [facility] W Auto Differential panel - [id number] 03:00:00 Test Item Value Reference Range Interpretation Comments white blood count (test code = 7.5 K/uL 4.0-11.5 white blood count) red blood count (test code = red 2.90 M/uL 3.80-5.20 L blood count) hemoglobin (test code = 8.9 g/dL 10.5-15.7 L hemoglobin) hematocrit (test code = 27.9 % 34.0-50.0 L hematocrit) MCV [Entitic volume] (test code = 96.2 fL 86-100 56457-6) mean corpuscular hemoglobin (test 30.7 pg 26.2-33.4 [...] 44.4-80.1 leukocytes in Blood (test code = 88987-5) Immature granulocytes [#/volume] 0.0 K/uL 0.0-0.03 in Blood (test code = 24835-8) lymphocyte% (test code = 15.9 % 10.0-50.0 lymphocyte%) mono % (test code = mono %) 6.0 % 3.6-12.0 eos % (test code = eos %) 0.8 % 0.0-5.4 Basophils/100 leukocytes in 0.1 % 0.1-1.2 Unspecified specimen (test code = 32051-3) Band form neutrophils [#/volume] 5.73 K/uL 1.56-6.13 in Blood (test code = 53994-9) Lymphocytes [#/volume] in 1.2 K/uL 1.18-3.74 Unspecified specimen by Automated count (test code = 42816-4) mono # (test code = mono #) 0.45 K/uL 0.24-0.86 eos # (test code = eos #) 0.06 K/uL 0.04-0.36 basophil # (test code = basophil 0.01 K/uL 0.01-0.08 #) NRBC% (test code = NRBC%) 1 /100 WBC 0-0.2 H NRBC# (test code = NRBC#) 0 K/uL [facility] metabolic 2000 panel - Serum or [id number] 03:00:00 Test Item Value Reference Range Interpretation [...] = 7.8 mg/dL 8.8-10.2 L calcium level) [facility] W Auto Differential panel - [id number] 12:59:00 Test Item Value Reference Range Interpretation Comments white blood count (test code = 8.7 K/uL 4.0-11.5 white blood count) red blood count (test code = red 3.00 M/uL 3.80-5.20 L blood count) hemoglobin (test code = 9.1 g/dL 10.5-15.7 L hemoglobin) hematocrit (test code = 28.4 % 34.0-50.0 L hematocrit) MCV [Entitic volume] (test code = 94.7 fL 86-100 73616-9) mean corpuscular hemoglobin (test 30.3 pg 26.2-33.4 [...] 44.4-80.1 leukocytes in Blood (test code = 16710-2) Immature granulocytes [#/volume] 0.0 K/uL 0.0-0.03 H in Blood (test code = 80273-1) lymphocyte% (test code = 12.6 % 10.0-50.0 lymphocyte%) mono % (test code = mono %) 6.0 % 3.6-12.0 eos % (test code = eos %) 0.6 % 0.0-5.4 Basophils/100 leukocytes in 0.2 % 0.1-1.2 Unspecified specimen (test code = 55018-5) Band form neutrophils [#/volume] 6.95 K/uL 1.56-6.13 H in Blood (test code = 88796-6) Lymphocytes [#/volume] in 1.1 K/uL 1.18-3.74 L Unspecified specimen by Automated count (test code = 89007-5) mono # (test code = mono #) 0.52 K/uL 0.24-0.86 eos # (test code = eos #) 0.05 K/uL 0.04-0.36 basophil # (test code = basophil 0.02 K/uL 0.01-0.08 #) NRBC% (test code = NRBC%) 1 /100 WBC 0-0.2 H NRBC# (test code = NRBC#) 0 K/uL [facility] metabolic 2000 panel - Serum or [id number] 12:59:00 Test Item Value Reference Range Interpretation [...] = 7.8 mg/dL 8.8-10.2 L calcium level) [facility] W Auto Differential panel - [id number] 12:59:00 Test Item Value Reference Range Interpretation Comments white blood count (test code = 8.7 K/uL 4.0-11.5 white blood count) red blood count (test code = red 3.00 M/uL 3.80-5.20 L blood count) hemoglobin (test code = 9.1 g/dL 10.5-15.7 L hemoglobin) hematocrit (test code = 28.4 % 34.0-50.0 L hematocrit) MCV [Entitic volume] (test code = 94.7 fL 86-100 25115-7) mean corpuscular hemoglobin (test 30.3 pg 26.2-33.4 [...] 44.4-80.1 leukocytes in Blood (test code = 30155-9) Immature granulocytes [#/volume] 0.0 K/uL 0.0-0.03 H in Blood (test code = 72337-6) lymphocyte% (test code = 12.6 % 10.0-50.0 lymphocyte%) mono % (test code = mono %) 6.0 % 3.6-12.0 eos % (test code = eos %) 0.6 % 0.0-5.4 Basophils/100 leukocytes in 0.2 % 0.1-1.2 Unspecified specimen (test code = 98844-1) Band form neutrophils [#/volume] 6.95 K/uL 1.56-6.13 H in Blood (test code = 49098-2) Lymphocytes [#/volume] in 1.1 K/uL 1.18-3.74 L Unspecified specimen by Automated count (test code = 04181-8) mono # (test code = mono #) 0.52 K/uL 0.24-0.86 eos # (test code = eos #) 0.05 K/uL 0.04-0.36 basophil # (test code = basophil 0.02 K/uL 0.01-0.08 #) NRBC% (test code = NRBC%) 1 /100 WBC 0-0.2 H NRBC# (test code = NRBC#) 0 K/uL [facility] metabolic 2000 panel - Serum or [id number] 12:59:00 Test Item Value Reference Range Interpretation [...] = 7.8 mg/dL 8.8-10.2 L calcium level) [facility] W Auto Differential panel - [id number] 12:59:00 Test Item Value Reference Range Interpretation Comments white blood count (test code = 8.7 K/uL 4.0-11.5 white blood count) red blood count (test code = red 3.00 M/uL 3.80-5.20 L blood count) hemoglobin (test code = 9.1 g/dL 10.5-15.7 L hemoglobin) hematocrit (test code = 28.4 % 34.0-50.0 L hematocrit) MCV [Entitic volume] (test code = 94.7 fL 86-100 61412-0) mean corpuscular hemoglobin (test 30.3 pg 26.2-33.4 [...] 44.4-80.1 leukocytes in Blood (test code = 43083-7) Immature granulocytes [#/volume] 0.0 K/uL 0.0-0.03 H in Blood (test code = 35716-2) lymphocyte% (test code = 12.6 % 10.0-50.0 lymphocyte%) mono % (test code = mono %) 6.0 % 3.6-12.0 eos % (test code = eos %) 0.6 % 0.0-5.4 Basophils/100 leukocytes in 0.2 % 0.1-1.2 Unspecified specimen (test code = 04907-3) Band form neutrophils [#/volume] 6.95 K/uL 1.56-6.13 H in Blood (test code = 56873-8) Lymphocytes [#/volume] in 1.1 K/uL 1.18-3.74 L Unspecified specimen by Automated count (test code = 94776-0) mono # (test code = mono #) 0.52 K/uL 0.24-0.86 eos # (test code = eos #) 0.05 K/uL 0.04-0.36 basophil # (test code = basophil 0.02 K/uL 0.01-0.08 #) NRBC% (test code = NRBC%) 1 /100 WBC 0-0.2 H NRBC# (test code = NRBC#) 0 K/uL [facility] metabolic 2000 panel - Serum or [id number] 12:59:00 Test Item Value Reference Range Interpretation [...] = 7.8 mg/dL 8.8-10.2 L calcium level) [facility] [id number] 10:15:00 Test Item Value Reference Range Interpretation Comments hemoglobin (test code = hemoglobin) 9.4 g/dL 10.5-15.7 hematocrit (test code = hematocrit) 29.4 % 34.0-50.0 [facility] - [id number] 10:15:00 Test Item Value Reference Range Interpretation Comments hemoglobin (test code = hemoglobin) 9.4 g/dL 10.5-15.7 hematocrit (test code = hematocrit) 29.4 % 34.0-50.0 [facility] - [id number] 10:15:00 Test Item Value Reference Range Interpretation Comments hemoglobin (test code = hemoglobin) 9.4 g/dL 10.5-15.7 hematocrit (test code = hematocrit) 29.4 % 34.0-50.0 [facility] W Auto Differential panel - [id number] 01:45:00 Test Item Value Reference Range Interpretation Comments white blood count (test code = 8.4 K/uL 4.0-11.5 white blood count) red blood count (test code = red 2.27 M/uL 3.80-5.20 L blood count) hemoglobin (test code = 7.0 g/dL 10.5-15.7 L hemoglobin) hematocrit (test code = 21.8 % 34.0-50.0 L hematocrit) MCV [Entitic volume] (test code = 96.0 fL 86-100 36828-7) mean corpuscular hemoglobin (test 30.8 pg 26.2-33.4 [...] 44.4-80.1 leukocytes in Blood (test code = 05464-5) Immature granulocytes [#/volume] 0.0 K/uL 0.0-0.03 H in Blood (test code = 68126-6) lymphocyte% (test code = 14.9 % 10.0-50.0 lymphocyte%) mono % (test code = mono %) 5.5 % 3.6-12.0 eos % (test code = eos %) 0.7 % 0.0-5.4 Basophils/100 leukocytes in 0.1 % 0.1-1.2 Unspecified specimen (test code = 63634-5) Band form neutrophils [#/volume] 6.55 K/uL 1.56-6.13 H in Blood (test code = 01427-8) Lymphocytes [#/volume] in 1.3 K/uL 1.18-3.74 Unspecified specimen by Automated count (test code = 85257-1) mono # (test code = mono #) 0.46 K/uL 0.24-0.86 eos # (test code = eos #) 0.06 K/uL 0.04-0.36 basophil # (test code = basophil 0.01 K/uL 0.01-0.08 #) NRBC% (test code = NRBC%) 3 /100 WBC 0-0.2 H NRBC# (test code = NRBC#) 0 K/uL [facility] method unspecified - [id number] 01:45:00NeutrophilsBandLymphocyteMonocyteEosinophilPlatelet Estimate[facility] metabolic 2000 panel - Serum or [id number] 01:45:00 Test Item Value Reference Range Interpretation [...] = 7.9 mg/dL 8.8-10.2 L calcium level) [facility] W Auto Differential panel - [id number] 01:45:00 Test Item Value Reference Range Interpretation Comments white blood count (test code = 8.4 K/uL 4.0-11.5 white blood count) red blood count (test code = red 2.27 M/uL 3.80-5.20 L blood count) hemoglobin (test code = 7.0 g/dL 10.5-15.7 L hemoglobin) hematocrit (test code = 21.8 % 34.0-50.0 L hematocrit) MCV [Entitic volume] (test code = 96.0 fL 86-100 72629-8) mean corpuscular hemoglobin (test 30.8 pg 26.2-33.4 [...] 44.4-80.1 leukocytes in Blood (test code = 72501-8) Immature granulocytes [#/volume] 0.0 K/uL 0.0-0.03 H in Blood (test code = 64514-6) lymphocyte% (test code = 14.9 % 10.0-50.0 lymphocyte%) mono % (test code = mono %) 5.5 % 3.6-12.0 eos % (test code = eos %) 0.7 % 0.0-5.4 Basophils/100 leukocytes in 0.1 % 0.1-1.2 Unspecified specimen (test code = 92948-9) Band form neutrophils [#/volume] 6.55 K/uL 1.56-6.13 H in Blood (test code = 60221-4) Lymphocytes [#/volume] in 1.3 K/uL 1.18-3.74 Unspecified specimen by Automated count (test code = 94942-2) mono # (test code = mono #) 0.46 K/uL 0.24-0.86 eos # (test code = eos #) 0.06 K/uL 0.04-0.36 basophil # (test code = basophil 0.01 K/uL 0.01-0.08 #) NRBC% (test code = NRBC%) 3 /100 WBC 0-0.2 H NRBC# (test code = NRBC#) 0 K/uL [facility], method unspecified - [id number] 01:45:00NeutrophilsBandLymphocyteMonocyteEosinophilPlatelet EstimateMatagoTrace [facility] Hospital[facility] 2000 panel - Serum or [id number] 01:45:00 Test Item Value Reference Range Interpretation [...] = 7.9 mg/dL 8.8-10.2 L calcium level) [facility] W Auto Differential panel - [id number] 01:45:00 Test Item Value Reference Range Interpretation Comments white blood count (test code = 8.4 K/uL 4.0-11.5 white blood count) red blood count (test code = red 2.27 M/uL 3.80-5.20 L blood count) hemoglobin (test code = 7.0 g/dL 10.5-15.7 L hemoglobin) hematocrit (test code = 21.8 % 34.0-50.0 L hematocrit) MCV [Entitic volume] (test code = 96.0 fL 86-100 31149-7) mean corpuscular hemoglobin (test 30.8 pg 26.2-33.4 [...] 44.4-80.1 leukocytes in Blood (test code = 83959-1) Immature granulocytes [#/volume] 0.0 K/uL 0.0-0.03 H in Blood (test code = 98410-6) lymphocyte% (test code = 14.9 % 10.0-50.0 lymphocyte%) mono % (test code = mono %) 5.5 % 3.6-12.0 eos % (test code = eos %) 0.7 % 0.0-5.4 Basophils/100 leukocytes in 0.1 % 0.1-1.2 Unspecified specimen (test code = 76769-2) Band form neutrophils [#/volume] 6.55 K/uL 1.56-6.13 H in Blood (test code = 90590-1) Lymphocytes [#/volume] in 1.3 K/uL 1.18-3.74 Unspecified specimen by Automated count (test code = 58879-0) mono # (test code = mono #) 0.46 K/uL 0.24-0.86 eos # (test code = eos #) 0.06 K/uL 0.04-0.36 basophil # (test code = basophil 0.01 K/uL 0.01-0.08 #) NRBC% (test code = NRBC%) 3 /100 WBC 0-0.2 H NRBC# (test code = NRBC#) 0 K/uL [facility], method unspecified - [id number] 01:45:00NeutrophilsBandLymphocyteMonocyteEosinophilPlatelet EstimateMataMerit Health NatchezBasic metabolic 2000 panel - Serum or [id number] 01:45:00 Test Item Value Reference Range Interpretation [...] = 7.9 mg/dL 8.8-10.2 L calcium level) [facility] and Crossmatch panel - [id number] 13:40:00 Test Item Value Reference Range Interpretation Comments Blood type and Crossmatch unit number: panel - Blood (test code [id number] = 12400-5) [place] [id number] 13:40[facility] 13:40:00[place] 97520020-05-08 13:40:00Results [place] [id number] 13:40:00[facility] 13:40:00[place] [id number] 13:40:00Results [place] [id number] 13:40:[facility] 13:40:00[place] [id number] 13:40:00Results [place] [id number] 13:40:00[facility] [place] 2020-01-15 13:40:00[place] [id number] 13:40:00Results [place] [id number] [facility]:40[facility]:40[facility] Tdfrrjrl5651-04-65 13:40:00Results [facility] Rtcjxlfq0628-11-78 13:40:[facility]15 13:40:[facility] Kfbjfhpt7233-32-93 13:40:00Results [facility] Ipupxymw7582-83-64 13:40:00[facility]-15 13:40:00[facility] Zymioctb2023-16-95 13:40:00Results [facility] Mpjzqteg3388-68-26 13:40:00[facility] 2020-01-15 13:40:00[facility] Gvdeiecx5278-87-44 13:40:00Results [facility] Ftpjnhkh3294-39-41 13:40:00[facility] 2020-01-15 13:40:[facility] Zzpwodan6513-35-74 13:40:00Results [facility] GroupBlood type and Crossmatch panel - [id number] 13:40:00 Test Item Value Reference Range Interpretation Comments Blood type and Crossmatch unit number: panel - Blood (test code [id number] = 94717-9) [facility] Fyhriidx7874-48-53 13:40:00[facility]15 13:40:00[facility] Ndvtmzmw1599-73-56 13:40:00Results [facility] Jbavkwwz0671-04-71 13:40:00[facility] 2020-01-15 13:40:00[facility] Dylmffnp2412-94-46 13:40:00Results [facility] Yuriwhfu0040-48-65 13:40:00[facility]-15 13:40:[facility] Bycxlorl1518-15-65 13:40:00Results [facility] Ehlxkfbf4255-32-61 13:40:00[facility]-01-15 13:40:[facility] Rzhkcxtp8683-47-81 13:40:00Results [facility] Hxevorhw5402-01-39 13:40:00[facility]-01-15 13:40:00[facility] Fhlqyubo7190-33-66 13:40:00Results [facility] Hzlzykfc3502-95-84 13:40:00[facility]-01-15 13:40:00[facility] Srnghfji6850-98-57 13:40:00Results [facility] Nagnegmy2836-62-80 13:40:00[facility] 2020-01-15 13:40:00[facility] Mmvdeyvj4354-87-57 13:40:00Results [facility] Udjodjim3719-66-52 13:40:00[facility]-01-15 13:40:00[facility] Qjdyfzrx0888-71-03 13:40:00Results [facility] Awsydyvj4405-18-61 13:40:00[facility] 2020-01-15 13:40:00[facility] Kcorucne0515-54-84 13:40:00Results [facility] GroupBlood type and Crossmatch panel - Swzqs3049-29-73 13:40:00 Test Item Value Reference Range Interpretation Comments Blood type and Crossmatch unit number: panel - Blood (test code [id number] = 48222-2) [facility]:40[facility]-15 13:40:00[facility] Jvabzqae8010-03-91 13:40:00Results [facility] Dlyzknsf6964-15-37 13:40:00[facility] 2020-01-15 13:40:00[facility] Dqntvinz2537-35-36 13:40:00Results [facility] Snjeqotc3692-11-02 13:40:00[facility] 2020-01-15 13:40:00[facility] Gfrhobjg5595-28-22 13:40:00Results [facility] Qilypnbj1843-88-10 13:40:00[facility] 2020-01-15 13:40:00[facility] Khfljsuo5838-36-16 13:40:00Results [facility] Fndevsrj1692-20-07 13:40:00[facility] 2020-01-15 13:40:00[facility] Ofmjpxdy4751-04-05 13:40:00Results [facility] Venbdmkb5445-67-04 13:40:00[facility] 2020-01-15 13:40:00[facility] Quzfrmfs1603-42-52 13:40:00Results [facility] Lszwnjtl3371-88-74 13:40:00[facility] 2020-01-15 13:40:00[facility] Risesfsh5591-71-95 13:40:00Results [facility] Aulcostl4478-14-13 13:40:00[facility] 2020-01-15 13:40:00[facility] Fsqlkzea6330-84-87 13:40:00[facility] 13:40:00[facility] 2020-01-15 13:40:00[facility]c2020-05-08 13:40:00Results [facility]Hemoglobin [facility] Hematocrit panel - Ekkyg6969-12-25 09:48:00 Test Item Value Reference Range Interpretation Comments hemoglobin (test code = hemoglobin) 7.6 g/dL 10.5-15.7 hematocrit (test code = hematocrit) 23.5 % 34.0-50.0 [facility]Hem[facility]ematoc[facility] panel - Zkkqj6834-78-81 09:48:00 Test Item Value Reference Range Interpretation Comments hemoglobin (test code = hemoglobin) 7.6 g/dL 10.5-15.7 hematocrit (test code = hematocrit) 23.5 % 34.0-50.0 [facility] panel - Wrkuc5257-76-29 09:48:00 Test Item Value Reference Range Interpretation Comments hemoglobin (test code = hemoglobin) 7.6 g/dL 10.5-15.7 hematocrit (test code = hematocrit) 23.5 % 34.0-50.0 [facility]PT/OEV0575-20-29 08:07:00 Test Item Value Reference Range Interpretation Comments prothrombin time (test code = 10.4 seconds 10.3-12.3 prothrombin time) INR in Blood by Coagulation 0.96 assay (test code = 47778-5) [facility] mzha5985-61-31 08:07:00 Test Item Value Reference Range Interpretation Comments INR in Blood by Coagulation 22.0 seconds 22.5-37.0 L assay (test code = 35714-6) [facility]Blood type and Indirect antibody screen panel - Blood 2020-01-15 08:07:00 Test Item Value Reference Range Interpretation Comments Rh [Type] in Blood (test code = neg 54022-9) ABO and Rh group panel - Blood O negative (test code = 74026-6) [facility]PT/XLD7231-25-81 08:07:00 Test Item Value Reference Range Interpretation Comments prothrombin time (test code = 10.4 seconds 10.3-12.3 prothrombin time) INR in Blood by Coagulation 0.96 assay (test code = 39217-9) [facility] yfoz9826-67-10 08:07:00 Test Item Value Reference Range Interpretation Comments INR in Blood by Coagulation 22.0 seconds 22.5-37.0 L assay (test code = 68293-8) [facility] Indirect antibody screen [facility] - Blood 2020-01-15 08:07:00 Test Item Value Reference Range Interpretation Comments Rh [Type] in Blood (test code = neg 73766-3) ABO and Rh group panel - Blood O negative (test code = 72037-6) [facility]PT/MCE7597-16-05 08:07:00 Test Item Value Reference Range Interpretation Comments prothrombin time (test code = 10.4 seconds 10.3-12.3 prothrombin time) INR in Blood by Coagulation 0.96 assay (test code = 81465-9) [facility] huyn9120-42-89 08:07:00 Test Item Value Reference Range Interpretation Comments INR in Blood by Coagulation 22.0 seconds 22.5-37.0 L assay (test code = 49529-0) [facility] type and Indirect antibody screen panel - Blood 2020-01-15 08:07:00 Test Item Value Reference Range Interpretation Comments Rh [Type] in Blood (test code = neg 99030-0) ABO and Rh group panel - Blood O negative (test code = 19135-6) [facility] HospitalComprehensive metabolic 2000 panel - Serum or [...] Serum or Plasma (test code = 6768-6) [facility] [Enzymatic activity/volume] in Serum or Rckern4462-83-08 07:32:00 Test Item Value Reference Range Interpretation Comments creatine kinase (test code = creatine 901 U/L 20-180 H kinase) [facility] HospitalNatriuretic peptide.B prohormone N-Terminal [Mass/volume] in Serum or Thrxrw2681-54-91 07:32:00 Test Item Value Reference Range Interpretation Comments N-term pro natriuretic peptide (test 91 pg/mL 0-125 code = N-term pro natriuretic peptide) [facility] GroupTroponin I.cardiac [Mass/volume] in Epvue9172-90-03 07:32:00 Test Item Value Reference Range Interpretation Comments cardiac troponin I (test code = cardiac <0.30 0.0-0.5 troponin I) [facility] GroupCreatine kinase.MB [Mass/volume] in Serum or Plasma 2020-01-15 07:32:00 Test Item Value Reference Range Interpretation Comments Creatine kinase.MB [Mass/volume] 25.1 NG/mL 0.0-3.6 H in Serum or Plasma by Immunoassay (test code = 31656-3) [facility]Comprehensive [facility] 2000 panel - Serum or [...] Serum or Plasma (test code = 6768-6) [facility]Creat[facility] kinase [Enzymatic activity/volume] in Serum or Tnqece3329-33-58 07:32:00 Test Item Value Reference Range Interpretation Comments creatine kinase (test code = creatine 901 U/L 20-180 H kinase) [facility] HospitalNatriuretic peptide.B prohormone N-Terminal [Mass/volume] in Serum or Najnuw8671-41-12 07:32:00 Test Item Value Reference Range Interpretation Comments N-term pro natriuretic peptide (test 91 pg/mL 0-125 code = N-term pro natriuretic peptide) [facility] HospitalTroponin I.cardiac [Mass/volume] in Smjxq6388-95-98 07:32:00 Test Item Value Reference Range Interpretation Comments cardiac troponin I (test code = cardiac <0.30 0.0-0.5 troponin I) [facility] HospitalCreatine kinase.MB [Mass/volume] in Serum or Plasma 2020-01-15 07:32:00 Test Item Value Reference Range Interpretation Comments Creatine kinase.MB [Mass/volume] 25.1 NG/mL 0.0-3.6 H in Serum or Plasma by Immunoassay (test code = 02120-5) [facility] W Auto Differential panel - [id number] 07:32:00 Test Item Value Reference Range Interpretation Comments white blood count (test code = 8.5 K/uL 4.0-11.5 white blood count) red blood count (test code = red 1.60 M/uL 3.80-5.20 L blood count) hemoglobin (test code = 5.1 g/dL 10.5-15.7 hemoglobin) hematocrit (test code = 16.9 % 34.0-50.0 hematocrit) MCV [Entitic volume] (test code = 105.6 fL 86-100 H 67330-7) mean corpuscular hemoglobin (test 31.9 pg 26.2-33.4 [...] H leukocytes in Blood (test code = 91912-6) Immature granulocytes [#/volume] 0.0 K/uL 0.0-0.03 H in Blood (test code = 70237-0) lymphocyte% (test code = 11.4 % 10.0-50.0 lymphocyte%) mono % (test code = mono %) 5.4 % 3.6-12.0 eos % (test code = eos %) 0.5 % 0.0-5.4 Basophils/100 leukocytes in 0.1 % 0.1-1.2 Unspecified specimen (test code = 83332-4) Band form neutrophils [#/volume] 6.97 K/uL 1.56-6.13 H in Blood (test code = 67491-4) Lymphocytes [#/volume] in 1.0 K/uL 1.18-3.74 L Unspecified specimen by Automated count (test code = 64132-1) mono # (test code = mono #) 0.46 K/uL 0.24-0.86 eos # (test code = eos #) 0.04 K/uL 0.04-0.36 basophil # (test code = basophil 0.01 K/uL 0.01-0.08 #) NRBC% (test code = NRBC%) 2 /100 WBC 0-0.2 H NRBC# (test code = NRBC#) 0 K/uL [facility] HospitalDifferential panel, method unspecified - Fudok6110-24-56 07:32:00NeutrophilsBandLymphocyteMonocyteEosinophilBasophilPlatelet EstimateDifferential comment-[facility] CenterComprehensive [facility] 2000 panel - Serum or Xdkcba1607-07-31 07:32:00 Test Item Value Reference Range Interpretation [...] Serum or Plasma (test code = 6768-6) [facility] HospitalCreatine kinase [Enzymatic activity/volume] in Serum or Vgmjlw4048-13-48 07:32:00 Test Item Value Reference Range Interpretation Comments creatine kinase (test code = creatine 901 U/L 20-180 H kinase) [facility] HospitalNatriuretic peptide.B prohormone N-Terminal [Mass/volume] in Serum or Kijvmv0741-87-89 07:32:00 Test Item Value Reference Range Interpretation Comments N-term pro natriuretic peptide (test 91 pg/mL 0-125 code = N-term pro natriuretic peptide) [facility] HospitalTroponin I.cardiac [Mass/volume] in Iadqk5494-47-27 07:32:00 Test Item Value Reference Range Interpretation Comments cardiac troponin I (test code = cardiac <0.30 0.0-0.5 troponin I) [facility] HospitalCreatine kinase.MB [Mass/volume] in Serum or Plasma 2020-01-15 07:32:00 Test Item Value Reference Range Interpretation Comments Creatine kinase.MB [Mass/volume] 25.1 NG/mL 0.0-3.6 H in Serum or Plasma by Immunoassay (test code = 16162-0) [facility] HospitalUrinalysis complete panel - Tbfnv3945-07-10 04:45:00 Test Item Value Reference Range Interpretation Comments Color of Urine by Auto (test colorless code = 92665-1) Appearance of Urine (test code clear clear = 5767-9) Glucose [Presence] in Urine by negative negative Automated test strip (test code = 13929-0) Bilirubin.total [Mass/volume] negative negative in Urine (test code = 1978-6) Ketones [Mass/volume] in Urine negative negative by Automated test strip (test code = 30946-1) Specific gravity of Urine by 1.008 1.003-1.030 Automated test strip (test code = 46090-2) blood urine (test code = blood negative negative urine) pH of Urine (test code = 5.500 5-9 2756-5) protein urine (UA) (test code = negative negative protein urine (UA)) Urobilinogen [Presence] in normal 0.2-1.0 Urine (test code = 35451-3) Nitrite [Presence] in Urine by negative negative Test strip (test code = 5802-4) Leukocyte esterase [Presence] negative negative in Urine by Automated test strip (test code = 33178-4) Erythrocytes [#/volume] in <1 0-5 Urine by Automated count (test code = 798-9) Leukocytes [#/area] in Urine <1 0-5 sediment by Automated count (test code = 03354-5) Epithelial cells [Presence] in <1 0-5 Urine sediment by Light microscopy (test code = 70890-7) Bacteria identified in Urine by none detected none detect Culture (test code = 630-4) Casts [#/area] in Urine =2-5 none detect sediment by Automated count (test code = 14272-1) urine culture added? (test code no = urine culture added?) [facility]Urinalysis complete panel - [id number] 04:45:00 Test Item Value Reference Range Interpretation Comments Color of Urine by Auto (test colorless code = 87535-7) Appearance of Urine (test code clear clear = 5767-9) Glucose [Presence] in Urine by negative negative Automated test strip (test code = 03379-7) Bilirubin.total [Mass/volume] negative negative in Urine (test code = 1977-6) Ketones [Mass/volume] in Urine negative negative by Automated test strip (test code = 45391-6) Specific gravity of Urine by 1.008 1.003-1.030 Automated test strip (test code = 06872-8) blood urine (test code = blood negative negative urine) pH of Urine (test code = 5.500 5-9 2756-5) protein urine (UA) (test code = negative negative protein urine (UA)) Urobilinogen [Presence] in normal 0.2-1.0 Urine (test code = 65743-3) Nitrite [Presence] in Urine by negative negative Test strip (test code = 5802-4) Leukocyte esterase [Presence] negative negative in Urine by Automated test strip (test code = 86546-3) Erythrocytes [#/volume] in <1 0-5 Urine by Automated count (test code = 798-9) Leukocytes [#/area] in Urine <1 0-5 sediment by Automated count (test code = 13842-7) Epithelial cells [Presence] in <1 0-5 Urine sediment by Light microscopy (test code = 85097-0) Bacteria identified in Urine by none detected none detect Culture (test code = 630-4) Casts [#/area] in Urine =2-5 none detect sediment by Automated count (test code = 89630-0) urine culture added? (test code no = urine culture added?) [facility] panel - Tzhqb2042-27-06 04:45:00 Test Item Value Reference Range Interpretation Comments Color of Urine by Auto (test colorless code = 79926-5) Appearance of Urine (test code clear clear = 5767-9) Glucose [Presence] in Urine by negative negative Automated test strip (test code = 40591-0) Bilirubin.total [Mass/volume] negative negative in Urine (test code = 1978-6) Ketones [Mass/volume] in Urine negative negative by Automated test strip (test code = 32590-1) Specific gravity of Urine by 1.008 1.003-1.030 Automated test strip (test code = 59495-8) blood urine (test code = blood negative negative urine) pH of Urine (test code = 5.500 5-9 2756-5) protein urine (UA) (test code = negative negative protein urine (UA)) Urobilinogen [Presence] in normal 0.2-1.0 Urine (test code = 21557-4) Nitrite [Presence] in Urine by negative negative Test strip (test code = 5802-4) Leukocyte esterase [Presence] negative negative in Urine by Automated test strip (test code = 55695-5) Erythrocytes [#/volume] in <1 0-5 Urine by Automated count (test code = 798-9) Leukocytes [#/area] in Urine <1 0-5 sediment by Automated count (test code = 70718-0) Epithelial cells [Presence] in <1 0-5 Urine sediment by Light microscopy (test code = 05350-7) Bacteria identified in Urine by none detected none detect Culture (test code = 630-4) Casts [#/area] in Urine =2-5 none detect sediment by Automated count (test code = 78181-6) urine culture added? (test code no = urine culture added?) [facility] W Auto Differential panel - Woeji6657-68-72 09:37:00 Test Item Value Reference Range Interpretation Comments white blood count (test code = 6.7 K/uL 4.0-11.5 white blood count) red blood count (test code = red 2.27 M/uL 3.80-5.20 L blood count) hemoglobin (test code = 7.2 g/dL 10.5-15.7 hemoglobin) hematocrit (test code = 23.1 % 34.0-50.0 hematocrit) MCV [Entitic volume] (test code = 101.8 fL 86-100 H 76913-4) mean corpuscular hemoglobin (test 31.7 pg 26.2-33.4 [...] 44.4-80.1 leukocytes in Blood (test code = 05113-8) Immature granulocytes [#/volume] 0.0 K/uL 0.0-0.03 in Blood (test code = 92825-8) lymphocyte% (test code = 19.0 % 10.0-50.0 lymphocyte%) mono % (test code = mono %) 5.2 % 3.6-12.0 eos % (test code = eos %) 0.4 % 0.0-5.4 Basophils/100 leukocytes in 0.3 % 0.1-1.2 Unspecified specimen (test code = 58375-6) Band form neutrophils [#/volume] 4.98 K/uL 1.56-6.13 in Blood (test code = 12689-0) Lymphocytes [#/volume] in 1.3 K/uL 1.18-3.74 Unspecified specimen by Automated count (test code = 27006-6) mono # (test code = mono #) 0.35 K/uL 0.24-0.86 eos # (test code = eos #) 0.03 K/uL 0.04-0.36 L basophil # (test code = basophil 0.02 K/uL 0.01-0.08 #) NRBC% (test code = NRBC%) 1 /100 WBC 0-0.2 H NRBC# (test code = NRBC#) 0 K/uL [facility] W Auto Differential panel - [id number] 09:37:00 Test Item Value Reference Range Interpretation Comments white blood count (test code = 6.7 K/uL 4.0-11.5 white blood count) red blood count (test code = red 2.27 M/uL 3.80-5.20 L blood count) hemoglobin (test code = 7.2 g/dL 10.5-15.7 hemoglobin) hematocrit (test code = 23.1 % 34.0-50.0 hematocrit) MCV [Entitic volume] (test code = 101.8 fL 86-100 H 87807-9) mean corpuscular hemoglobin (test 31.7 pg 26.2-33.4 [...] 44.4-80.1 leukocytes in Blood (test code = 09334-7) Immature granulocytes [#/volume] 0.0 K/uL 0.0-0.03 in Blood (test code = 84035-5) lymphocyte% (test code = 19.0 % 10.0-50.0 lymphocyte%) mono % (test code = mono %) 5.2 % 3.6-12.0 eos % (test code = eos %) 0.4 % 0.0-5.4 Basophils/100 leukocytes in 0.3 % 0.1-1.2 Unspecified specimen (test code = 10972-1) Band form neutrophils [#/volume] 4.98 K/uL 1.56-6.13 in Blood (test code = 03362-6) Lymphocytes [#/volume] in 1.3 K/uL 1.18-3.74 Unspecified specimen by Automated count (test code = 48701-0) mono # (test code = mono #) 0.35 K/uL 0.24-0.86 eos # (test code = eos #) 0.03 K/uL 0.04-0.36 L basophil # (test code = basophil 0.02 K/uL 0.01-0.08 #) NRBC% (test code = NRBC%) 1 /100 WBC 0-0.2 H NRBC# (test code = NRBC#) 0 K/uL [facility] Differential panel - Edqez9520-63-03 09:37:00 Test Item Value Reference Range Interpretation Comments white blood count (test code = 6.7 K/uL 4.0-11.5 white blood count) red blood count (test code = red 2.27 M/uL 3.80-5.20 L blood count) hemoglobin (test code = 7.2 g/dL 10.5-15.7 hemoglobin) hematocrit (test code = 23.1 % 34.0-50.0 hematocrit) MCV [Entitic volume] (test code = 101.8 fL 86-100 H 20646-8) mean corpuscular hemoglobin (test 31.7 pg 26.2-33.4 [...] 44.4-80.1 leukocytes in Blood (test code = 72145-7) Immature granulocytes [#/volume] 0.0 K/uL 0.0-0.03 in Blood (test code = 03260-1) lymphocyte% (test code = 19.0 % 10.0-50.0 lymphocyte%) mono % (test code = mono %) 5.2 % 3.6-12.0 eos % (test code = eos %) 0.4 % 0.0-5.4 Basophils/100 leukocytes in 0.3 % 0.1-1.2 Unspecified specimen (test code = 51111-9) Band form neutrophils [#/volume] 4.98 K/uL 1.56-6.13 in Blood (test code = 24620-4) Lymphocytes [#/volume] in 1.3 K/uL 1.18-3.74 Unspecified specimen by Automated count (test code = 04691-1) mono # (test code = mono #) 0.35 K/uL 0.24-0.86 eos # (test code = eos #) 0.03 K/uL 0.04-0.36 L basophil # (test code = basophil 0.02 K/uL 0.01-0.08 #) NRBC% (test code = NRBC%) 1 /100 WBC 0-0.2 H NRBC# (test code = NRBC#) 0 K/uL [facility] [Enzymatic activity/volume] in Serum or Snkdiu5824-74-46 05:20:00 Test Item Value Reference Range Interpretation Comments creatine kinase (test code = creatine 189 U/L 20-180 H kinase) [facility]Trop[facility] I.cardiac [Mass/volume] in Nddpd3246-29-28 05:20:00 Test Item Value Reference Range Interpretation Comments cardiac troponin I (test code = cardiac <0.30 0.0-0.5 troponin I) [facility]Creat[facility] kinase.MB [Mass/volume] in Serum or Plasma 2019-06-26 05:20:00 Test Item Value Reference Range Interpretation Comments mass creatinine kinase-mb (test 2.6 NG/mL 0.0-3.6 code = mass creatinine kinase-mb) [facility] W Auto Differential panel - [id number] 02:50:00 Test Item Value Reference Range Interpretation Comments white blood count (test code = 4.8 K/uL 4.0-11.5 white blood count) red blood count (test code = red 3.44 M/uL 3.80-5.20 L blood count) hemoglobin (test code = 11.0 g/dL 10.5-15.7 hemoglobin) hematocrit (test code = 34.4 % 34.0-50.0 hematocrit) Erythrocyte mean corpuscular 100.0 fL 86-100 volume [Entitic volume] (test code = 26326-9) mean corpuscular hemoglobin (test 32.0 pg 26.2-33.4 [...] 44.4-80.1 leukocytes in Blood (test code = 01496-3) Granulocytes Immature [#/volume] 0.0 K/uL 0.0-0.03 in Blood (test code = 33166-7) lymphocyte% (test code = 19.7 % 10.0-50.0 lymphocyte%) mono % (test code = mono %) 9.5 % 3.6-12.0 eos % (test code = eos %) 1.7 % 0.0-5.4 Basophils/100 leukocytes in 0.2 % 0.1-1.2 Unspecified specimen (test code = 87540-9) Neutrophils.band form [#/volume] 3.32 K/uL 1.56-6.13 in Blood (test code = 79761-7) Lymphocytes [#/volume] in 1.0 K/uL 1.18-3.74 L Unspecified specimen by Automated count (test code = 56402-8) mono # (test code = mono #) 0.46 K/uL 0.24-0.86 eos # (test code = eos #) 0.08 K/uL 0.04-0.36 basophil # (test code = basophil 0.01 K/uL 0.01-0.08 #) NRBC% (test code = NRBC%) 0 /100 WBC 0-0.2 NRBC# (test code = NRBC#) 0 K/uL [facility], [id number] 02:50:00 NeutrophilsBandLymphocyteAtypical LymphMonocyteEosinophilBasophilMetamyelocytePlatelet EstimatePlatelet MorphologyHypochromasiaAnisocytosisMacrocytosisToxic GranulationToxic VacuolationMataMerit Health NatchezPT/[id number] 02:50:00 Test Item Value Reference Range Interpretation Comments prothrombin time (test code = 9.5 seconds 10.3-12.3 L prothrombin time) INR in Blood by Coagulation assay 0.90 (test code = 51312-9) [facility] [id number] 02:50:00 Test Item Value Reference Range Interpretation Comments INR in Blood by Coagulation 24.8 seconds 22.5-37.0 assay (test code = 58030-2) [facility]Comprehensive metabolic 2000 panel - Serum or [...] Serum or Plasma (test code = 6768-6) [facility] HospitalCreatine kinase [Enzymatic activity/volume] in Serum or [id number] 02:50:00 Test Item Value Reference Range Interpretation Comments creatine kinase (test code = creatine 187 U/L 20-180 H kinase) [facility] HospitalNatriuretic peptide.B prohormone N-Terminal [Mass/volume] in Serum or [id number] 02:50:00 Test Item Value Reference Range Interpretation Comments N-term pro natriuretic peptide 171 pg/mL 0-125 H (test code = N-term pro natriuretic peptide) [facility] HospitalTroponin I.cardiac [Mass/volume] in [id number] 02:50:00 Test Item Value Reference Range Interpretation Comments cardiac troponin I (test code = cardiac <0.30 0.0-0.5 troponin I) [facility] HospitalCreatine kinase.MB [Mass/volume] in Serum or Plasma 2019-06-26 02:50:00 Test Item Value Reference Range Interpretation Comments mass creatinine kinase-mb (test 2.6 NG/mL 0.0-3.6 code = mass creatinine kinase-mb) [facility] W Auto Differential panel - [id number] 02:50:00 Test Item Value Reference Range Interpretation Comments white blood count (test code = 4.8 K/uL 4.0-11.5 white blood count) red blood count (test code = red 3.44 M/uL 3.80-5.20 L blood count) hemoglobin (test code = 11.0 g/dL 10.5-15.7 hemoglobin) hematocrit (test code = 34.4 % 34.0-50.0 hematocrit) Erythrocyte mean corpuscular 100.0 fL 86-100 volume [Entitic volume] (test code = 46961-8) mean corpuscular hemoglobin (test 32.0 pg 26.2-33.4 [...] 44.4-80.1 leukocytes in Blood (test code = 65803-2) Granulocytes Immature [#/volume] 0.0 K/uL 0.0-0.03 in Blood (test code = 33345-9) lymphocyte% (test code = 19.7 % 10.0-50.0 lymphocyte%) mono % (test code = mono %) 9.5 % 3.6-12.0 eos % (test code = eos %) 1.7 % 0.0-5.4 Basophils/100 leukocytes in 0.2 % 0.1-1.2 Unspecified specimen (test code = 80790-5) Neutrophils.band form [#/volume] 3.32 K/uL 1.56-6.13 in Blood (test code = 07444-4) Lymphocytes [#/volume] in 1.0 K/uL 1.18-3.74 L Unspecified specimen by Automated count (test code = 73412-8) mono # (test code = mono #) 0.46 K/uL 0.24-0.86 eos # (test code = eos #) 0.08 K/uL 0.04-0.36 basophil # (test code = basophil 0.01 K/uL 0.01-0.08 #) NRBC% (test code = NRBC%) 0 /100 WBC 0-0.2 NRBC# (test code = NRBC#) 0 K/uL [facility]different[facility] panel, [id number] 02:50:00 NeutrophilsBandLymphocyteAtypical LymphMonocyteEosinophilBasophilMetamyelocytePlatelet EstimatePlatelet MorphologyHypochromasiaAnisocytosisMacrocytosisToxic GranulationToxic VacuolationPascagoula HospitalPT/[id number] 02:50:00 Test Item Value Reference Range Interpretation Comments prothrombin time (test code = 9.5 seconds 10.3-12.3 L prothrombin time) INR in Blood by Coagulation assay 0.90 (test code = 05729-4) [facility] [id number] 02:50:00 Test Item Value Reference Range Interpretation Comments INR in Blood by Coagulation 24.8 seconds 22.5-37.0 assay (test code = 27912-9) [facility]Comprehensive [facility] 2000 panel - Serum or [...] Serum or Plasma (test code = 6768-6) [facility] HospitalCreatine kinase [Enzymatic activity/volume] in Serum or [id number] 02:50:00 Test Item Value Reference Range Interpretation Comments creatine kinase (test code = creatine 187 U/L 20-180 H kinase) [facility] HospitalNatriuretic peptide.B prohormone N-Terminal [Mass/volume] in Serum or [id number] 02:50:00 Test Item Value Reference Range Interpretation Comments N-term pro natriuretic peptide 171 pg/mL 0-125 H (test code = N-term pro natriuretic peptide) [facility] HospitalTroponin I.cardiac [Mass/volume] in [id number] 02:50:00 Test Item Value Reference Range Interpretation Comments cardiac troponin I (test code = cardiac <0.30 0.0-0.5 troponin I) [facility] HospitalCreatine kinase.MB [Mass/volume] in Serum or Plasma 2019-06-26 02:50:00 Test Item Value Reference Range Interpretation Comments mass creatinine kinase-mb (test 2.6 NG/mL 0.0-3.6 code = mass creatinine kinase-mb) [facility] W Auto Differential panel - [id number] 12:30:00 Test Item Value Reference Range Interpretation Comments white blood count (test code = 5.8 K/uL 4.0-11.5 white blood count) red blood count (test code = red 3.64 M/uL 3.80-5.20 L blood count) hemoglobin (test code = 11.6 g/dL 10.5-15.7 hemoglobin) hematocrit (test code = 36.9 % 34.0-50.0 hematocrit) Erythrocyte mean corpuscular 101.4 fL 86-100 H volume [Entitic volume] (test code = 50958-5) mean corpuscular hemoglobin (test 31.9 pg 26.2-33.4 [...] 44.4-80.1 leukocytes in Blood (test code = 25506-4) Granulocytes Immature [#/volume] 0.0 K/uL 0.0-0.03 in Blood (test code = 27102-6) lymphocyte% (test code = 20.2 % 10.0-50.0 lymphocyte%) mono % (test code = mono %) 9.8 % 3.6-12.0 eos % (test code = eos %) 0.9 % 0.0-5.4 Basophils/100 leukocytes in 0.2 % 0.1-1.2 Unspecified specimen (test code = 49625-9) Neutrophils.band form [#/volume] 4.00 K/uL 1.56-6.13 in Blood (test code = 13421-0) Lymphocytes [#/volume] in 1.2 K/uL 1.18-3.74 Unspecified specimen by Automated count (test code = 63222-2) mono # (test code = mono #) 0.57 K/uL 0.24-0.86 eos # (test code = eos #) 0.05 K/uL 0.04-0.36 basophil # (test code = basophil 0.01 K/uL 0.01-0.08 #) NRBC% (test code = NRBC%) 0 /100 WBC 0-0.2 NRBC# (test code = NRBC#) 0 K/uL [facility]different[facility] panel, [id number] 12:30:00 NeutrophilsBandLymphocyteAtypical LymphMonocyteEosinophilBasophilPlatelet EstimatePlatelet MorphologyMacrocytosisPascagoula HospitalBasic metabolic 2000 panel - Serum or [id number] 12:30:00 Test Item Value Reference Range Interpretation [...] = calcium 8.5 mg/dL 8.8-10.2 L level) [facility] W Auto Differential panel - [id number] 12:30:00 Test Item Value Reference Range Interpretation Comments white blood count (test code = 5.8 K/uL 4.0-11.5 white blood count) red blood count (test code = red 3.64 M/uL 3.80-5.20 L blood count) hemoglobin (test code = 11.6 g/dL 10.5-15.7 hemoglobin) hematocrit (test code = 36.9 % 34.0-50.0 hematocrit) Erythrocyte mean corpuscular 101.4 fL 86-100 H volume [Entitic volume] (test code = 58476-2) mean corpuscular hemoglobin (test 31.9 pg 26.2-33.4 [...] 44.4-80.1 leukocytes in Blood (test code = 34036-5) Granulocytes Immature [#/volume] 0.0 K/uL 0.0-0.03 in Blood (test code = 74761-3) lymphocyte% (test code = 20.2 % 10.0-50.0 lymphocyte%) mono % (test code = mono %) 9.8 % 3.6-12.0 eos % (test code = eos %) 0.9 % 0.0-5.4 Basophils/100 leukocytes in 0.2 % 0.1-1.2 Unspecified specimen (test code = 83596-3) Neutrophils.band form [#/volume] 4.00 K/uL 1.56-6.13 in Blood (test code = 56581-1) Lymphocytes [#/volume] in 1.2 K/uL 1.18-3.74 Unspecified specimen by Automated count (test code = 69910-7) mono # (test code = mono #) 0.57 K/uL 0.24-0.86 eos # (test code = eos #) 0.05 K/uL 0.04-0.36 basophil # (test code = basophil 0.01 K/uL 0.01-0.08 #) NRBC% (test code = NRBC%) 0 /100 WBC 0-0.2 NRBC# (test code = NRBC#) 0 K/uL [facility]different[facility], [id number] 12:30:00 NeutrophilsBandLymphocyteAtypical LymphMonocyteEosinophilBasophilPlatelet EstimatePlatelet MorphologyMacrocytosisPascagoula HospitalBasic metabolic 2000 panel - Serum or [id number] 12:30:00 Test Item Value Reference Range Interpretation [...] = calcium 8.5 mg/dL 8.8-10.2 L level) [facility] HospitalUrinalysis complete panel - [id number] 11:54:00 Test Item Value Reference Range Interpretation Comments Color of Urine by Auto light yellow (test code = 44197-0) Appearance of Urine (test clear clear code = 5767-9) Glucose [Presence] in negative negative Urine by Automated test strip (test code = 32583-3) Bilirubin.total negative negative [Mass/volume] in Urine (test code = 1978-6) Ketones [Mass/volume] in negative negative Urine by Automated test strip (test code = 55688-4) Specific gravity of Urine 1.025 1.003-1.030 by Automated test strip (test code = 91326-0) blood urine (test code = negative negative blood urine) pH of Urine (test code = 6.500 5-9 2756-5) protein urine (UA) (test negative negative code = protein urine (UA)) Urobilinogen [Presence] normal 0.2-1.0 in Urine (test code = 15570-4) Nitrite [Presence] in negative negative Urine by Test strip (test code = 5802-4) Leukocyte esterase negative negative [Presence] in Urine by Automated test strip (test code = 42884-6) Erythrocytes [#/volume] <1 0-5 in Urine by Automated count (test code = 798-9) Leukocytes [#/area] in <1 0-5 Urine sediment by Automated count (test code = 26065-2) Epithelial cells <1 0-5 [Presence] in Urine sediment by Light microscopy (test code = 35776-5) Bacteria identified in none detected none detect Urine by Culture (test code = 630-4) Casts [#/area] in Urine =11-14 none detect H sediment by Automated count (test code = 19617-6) urine culture added? no (test code = urine culture added?) path casts,U (test code = cellular casts (1-5 none detect A path casts,U) [facility] HospitalUrinalysis complete panel - [id number] 11:54:00 Test Item Value Reference Range Interpretation Comments Color of Urine by Auto light yellow (test code = 86575-2) Appearance of Urine (test clear clear code = 5767-9) Glucose [Presence] in negative negative Urine by Automated test strip (test code = 61502-9) Bilirubin.total negative negative [Mass/volume] in Urine (test code = 1978-6) Ketones [Mass/volume] in negative negative Urine by Automated test strip (test code = 07488-6) Specific gravity of Urine 1.025 1.003-1.030 by Automated test strip (test code = 07890-2) blood urine (test code = negative negative blood urine) pH of Urine (test code = 6.500 5-9 2756-5) protein urine (UA) (test negative negative code = protein urine (UA)) Urobilinogen [Presence] normal 0.2-1.0 in Urine (test code = 98832-3) Nitrite [Presence] in negative negative Urine by Test strip (test code = 5802-4) Leukocyte esterase negative negative [Presence] in Urine by Automated test strip (test code = 22415-7) Erythrocytes [#/volume] <1 0-5 in Urine by Automated count (test code = 798-9) Leukocytes [#/area] in <1 0-5 Urine sediment by Automated count (test code = 61248-4) Epithelial cells <1 0-5 [Presence] in Urine sediment by Light microscopy (test code = 65484-2) Bacteria identified in none detected none detect Urine by Culture (test code = 630-4) Casts [#/area] in Urine =11-14 none detect H sediment by Automated count (test code = 90025-0) urine culture added? no (test code = urine culture added?) path casts,U (test code = cellular casts (1-5 none detect A path casts,U) [facility] W Auto Differential panel - [id number] 09:30:00 Test Item Value Reference Range Interpretation Comments white blood count (test code = 5.6 K/uL 4.0-11.5 white blood count) red blood count (test code = red 3.98 M/uL 3.80-5.20 blood count) hemoglobin (test code = 12.7 g/dL 10.5-15.7 hemoglobin) hematocrit (test code = 39.8 % 34.0-50.0 hematocrit) Erythrocyte mean corpuscular 100.0 fL 86-100 volume [Entitic volume] (test code = 68482-4) mean corpuscular hemoglobin (test 31.9 pg 26.2-33.4 [...] 44.4-80.1 leukocytes in Blood (test code = 78178-7) Granulocytes Immature [#/volume] 0.0 K/uL 0.0-0.03 in Blood (test code = 48563-3) lymphocyte% (test code = 15.1 % 10.0-50.0 lymphocyte%) mono % (test code = mono %) 6.8 % 3.6-12.0 eos % (test code = eos %) 0.7 % 0.0-5.4 Basophils/100 leukocytes in 0.4 % 0.1-1.2 Unspecified specimen (test code = 00267-4) Neutrophils.band form [#/volume] 4.29 K/uL 1.56-6.13 in Blood (test code = 13572-9) Lymphocytes [#/volume] in 0.8 K/uL 1.18-3.74 L Unspecified specimen by Automated count (test code = 31100-0) mono # (test code = mono #) 0.38 K/uL 0.24-0.86 eos # (test code = eos #) 0.04 K/uL 0.04-0.36 basophil # (test code = basophil 0.02 K/uL 0.01-0.08 #) NRBC% (test code = NRBC%) 0 /100 WBC 0-0.2 NRBC# (test code = NRBC#) 0 K/uL [facility]different[facility], [id number] 09:30:00 NeutrophilsBandLymphocyteAtypical LymphMonocyteEosinophilPlatelet EstimatePlatelet MorphologyMacrocytosisMatagoTrace Regional HospitalPT/[id number] 09:30:00 Test Item Value Reference Range Interpretation Comments prothrombin time (test code = 10.5 seconds 10.3-12.3 prothrombin time) INR in Blood by Coagulation 0.95 assay (test code = 09715-0) [facility] thromb[facility]in [id number] 09:30:00 Test Item Value Reference Range Interpretation Comments INR in Blood by Coagulation 23.4 seconds 22.5-37.0 assay (test code = 81897-5) [facility] HospitalComprehensive metabolic 2000 panel - Serum or [...] Serum or Plasma (test code = 6768-6) [facility] GroupMagnesium [Moles/volume] in Unspecified specimen 2019-06-03 09:30:00 Test Item Value Reference Range Interpretation Comments magnesium level (test code = 1.8 mg/dL 1.6-2.4 magnesium level) [facility] GroupEthanol [Mass/volume] in Serum or [id number] 09:30:00 Test Item Value Reference Range Interpretation Comments alcohol level (test code = alcohol <10.1 0.00-10.1 level) [facility] HospitalCreatine kinase [Enzymatic activity/volume] in Serum or [id number] 09:30:00 Test Item Value Reference Range Interpretation Comments creatine kinase (test code = creatine 150 U/L 20-180 kinase) [facility] HospitalNatriuretic peptide.B prohormone N-Terminal [Mass/volume] in Serum or [id number] 09:30:00 Test Item Value Reference Range Interpretation Comments N-term pro natriuretic peptide 200 pg/mL 0-125 H (test code = N-term pro natriuretic peptide) [facility] HospitalTroponin I.cardiac [Mass/volume] in [id number] 09:30:00 Test Item Value Reference Range Interpretation Comments cardiac troponin I (test code = cardiac <0.30 0.0-0.5 troponin I) [facility] HospitalCreatine kinase.MB [Mass/volume] in Serum or Plasma 2019-06-03 09:30:00 Test Item Value Reference Range Interpretation Comments mass creatinine kinase-mb (test 2.3 NG/mL 0.0-3.6 code = mass creatinine kinase-mb) [facility] GroupMyoglobin [Mass/volume] in Serum or [id number] 09:30:00 Test Item Value Reference Range Interpretation Comments myoglobin (test code = myoglobin) 37 NG/mL -58 [facility] W Auto Differential panel - [id number] 09:30:00 Test Item Value Reference Range Interpretation Comments white blood count (test code = 5.6 K/uL 4.0-11.5 white blood count) red blood count (test code = red 3.98 M/uL 3.80-5.20 blood count) hemoglobin (test code = 12.7 g/dL 10.5-15.7 hemoglobin) hematocrit (test code = 39.8 % 34.0-50.0 hematocrit) Erythrocyte mean corpuscular 100.0 fL 86-100 volume [Entitic volume] (test code = 45972-0) mean corpuscular hemoglobin (test 31.9 pg 26.2-33.4 [...] 44.4-80.1 leukocytes in Blood (test code = 39875-8) Granulocytes Immature [#/volume] 0.0 K/uL 0.0-0.03 in Blood (test code = 35577-2) lymphocyte% (test code = 15.1 % 10.0-50.0 lymphocyte%) mono % (test code = mono %) 6.8 % 3.6-12.0 eos % (test code = eos %) 0.7 % 0.0-5.4 Basophils/100 leukocytes in 0.4 % 0.1-1.2 Unspecified specimen (test code = 41043-5) Neutrophils.band form [#/volume] 4.29 K/uL 1.56-6.13 in Blood (test code = 91828-9) Lymphocytes [#/volume] in 0.8 K/uL 1.18-3.74 L Unspecified specimen by Automated count (test code = 48098-2) mono # (test code = mono #) 0.38 K/uL 0.24-0.86 eos # (test code = eos #) 0.04 K/uL 0.04-0.36 basophil # (test code = basophil 0.02 K/uL 0.01-0.08 #) NRBC% (test code = NRBC%) 0 /100 WBC 0-0.2 NRBC# (test code = NRBC#) 0 K/uL [facility]different[facility], [id number] 09:30:00 NeutrophilsBandLymphocyteAtypical LymphMonocyteEosinophilPlatelet EstimatePlatelet MorphologyMacrocytosisMaBatson Children's HospitalPT/[id number] 09:30:00 Test Item Value Reference Range Interpretation Comments prothrombin time (test code = 10.5 seconds 10.3-12.3 prothrombin time) INR in Blood by Coagulation 0.95 assay (test code = 72482-3) [facility] [id number] 09:30:00 Test Item Value Reference Range Interpretation Comments INR in Blood by Coagulation 23.4 seconds 22.5-37.0 assay (test code = 05720-1) [facility] HospitalComprehensive metabolic 2000 panel - Serum or [...] Serum or Plasma (test code = 6768-6) [facility] GroupMagnesium [Moles/volume] in Unspecified specimen 2019-06-03 09:30:00 Test Item Value Reference Range Interpretation Comments magnesium level (test code = 1.8 mg/dL 1.6-2.4 magnesium level) [facility] GroupEthanol [Mass/volume] in Serum or [id number] 09:30:00 Test Item Value Reference Range Interpretation Comments alcohol level (test code = alcohol <10.1 0.00-10.1 level) [facility] GroupCreatine kinase [Enzymatic activity/volume] in Serum or [id number] 09:30:00 Test Item Value Reference Range Interpretation Comments creatine kinase (test code = creatine 150 U/L 20-180 kinase) [facility] HospitalNatriuretic peptide.B prohormone N-Terminal [Mass/volume] in Serum or [id number] 09:30:00 Test Item Value Reference Range Interpretation Comments N-term pro natriuretic peptide 200 pg/mL 0-125 H (test code = N-term pro natriuretic peptide) [facility] HospitalTroponin I.cardiac [Mass/volume] in [id number] 09:30:00 Test Item Value Reference Range Interpretation Comments cardiac troponin I (test code = cardiac <0.30 0.0-0.5 troponin I) [facility] HospitalCreatine kinase.MB [Mass/volume] in Serum or Plasma 2019-06-03 09:30:00 Test Item Value Reference Range Interpretation Comments mass creatinine kinase-mb (test 2.3 NG/mL 0.0-3.6 code = mass creatinine kinase-mb) [facility] HospitalMyoglobin [Mass/volume] in Serum or [id number] 09:30:00 Test Item Value Reference Range Interpretation Comments myoglobin (test code = myoglobin) 37 NG/mL -58 [facility] HospitalUrinalysis complete panel - [id number] 05:40:00 Test Item Value Reference Range Interpretation Comments Color of Urine by Auto yellow (test code = 68895-9) Appearance of Urine (test SL cloudy clear A code = 5767-9) Glucose [Presence] in Urine negative negative by Automated test strip (test code = 66063-1) Bilirubin.total negative negative [Mass/volume] in Urine (test code = 1978-6) Ketones [Mass/volume] in =1 negative H Urine by Automated test strip (test code = 29998-6) Specific gravity of Urine 1.022 1.003-1.030 by Automated test strip (test code = 60041-7) blood urine (test code = trace negative blood urine) pH of Urine (test code = 7.000 5-9 2756-5) protein urine (UA) (test =1+ (30 negative H code = protein urine (UA)) Urobilinogen [Presence] in =2.0 0.2-1.0 H Urine (test code = 58454-2) Nitrite [Presence] in Urine positive negative H by Test strip (test code = 5802-4) Leukocyte esterase =4 negative H [Presence] in Urine by Automated test strip (test code = 91617-2) Erythrocytes [#/volume] in =6-10 0-5 H Urine by Automated count (test code = 798-9) Leukocytes [#/area] in =11-14 0-5 H Urine sediment by Automated count (test code = 12715-1) Epithelial cells [Presence] =11-25 0-5 H in Urine sediment by Light microscopy (test code = 05844-3) Bacteria identified in trace none detect Urine by Culture (test code = 630-4) Casts [#/area] in Urine =2-5 none detect sediment by Automated count (test code = 80608-8) urine culture added? (test no. contaminated. code = urine culture added?) [facility] HospitalBacteria identified in Urine by [id number] 05:40:00Bacteria Ur CultPascagoula HospitalPT/[id number] 05:17:00 Test Item Value Reference Range Interpretation Comments prothrombin time (test code = 9.9 seconds 10.3-12.3 L prothrombin time) INR in Blood by Coagulation assay 0.94 (test code = 74681-8) [facility]partial thromb[facility]in [id number] 05:17:00 Test Item Value Reference Range Interpretation Comments INR in Blood by Coagulation 24.3 seconds 22.5-37.0 assay (test code = 60967-5) [facility] HospitalCB W Auto Differential panel - [id number] 05:17:00 Test Item Value Reference Range Interpretation Comments white blood count (test 5.6 K/uL 4.0-11.5 code = white blood count) red blood count (test 4.89 M/uL 3.80-5.20 code = red blood count) Hemoglobin [Mass/volume] 15.0 g/dL 10.5-15.7 in Blood (test code = 718-7) hematocrit (test code = 47.9 % 34.0-50.0 hematocrit) Erythrocyte mean 97.9 fL 78-98 corpuscular volume [Entitic volume] (test code = 66605-5) Erythrocyte mean 30.6 pg 26.2-33.4 corpuscular hemoglobin [Entitic mass] (test code = 92554-5) mean corpuscular HGB 31.3 g/dL 31.5-36.2 L conc (test code = mean corpuscular HGB conc) red cell distribution 13.3 % 11.5-15.5 width (test code = red cell distribution width) Platelets [#/volume] in 283 K/uL 137-338 Blood (test code = 92384-2) Platelet mean volume 6.8 fL 8.4-11.8 L [Entitic volume] in Blood (test code = 53091-6) Neutrophils.band 68.6 % 44.4-80.1 form/100 leukocytes in Blood (test code = 27507-7) Lymphocytes/100 20.7 % 10.0-50.0 leukocytes in Body fluid (test code = 54347-5) Monocytes/100 leukocytes 9.2 % 3.6-12.04 in Blood by Automated count (test code = 5905-5) Eosinophils/100 0.4 % 0.0-5.41 leukocytes in Blood by Automated count (test code = 713-8) Basophils/100 leukocytes 1.1 % 0.0-0.79 H in Blood by Automated count (test code = 706-2) Platelet morphology hypersegmented polys normal RBC. finding [Identifier] in Blood (test code = 62406-2) [facility]differential panel, [id number] 05:17:00 NeutrophilsBandLymphocyteAtypical LymphMonocyteEosinophilBasophilMyelocytePlatelet EstimatePlatelet M orphologyHypersegmented PolysToxic VacuolationSmudge CellsMaBatson Children's HospitalComprehensive metabolic 2000 panel - Serum or [id number] 05:17:00 Test Item Value Reference Range Interpretation [...] Serum or Plasma (test code = 6768-6) [facility] HospitalCreatine kinase [Enzymatic activity/volume] in Serum or [id number] 05:17:00 Test Item Value Reference Range Interpretation Comments creatine kinase (test code = creatine 246 U/L 20-180 H kinase) [facility] HospitalTroponin I.cardiac [Mass/volume] in [id number] 05:17:00 Test Item Value Reference Range Interpretation Comments cardiac troponin I (test code = cardiac <0.30 0.0-0.5 troponin I) [facility] HospitalCreatine kinase.MB [Mass/volume] in Serum or Plasma 2018-10-09 05:17:00 Test Item Value Reference Range Interpretation Comments mass creatinine kinase-mb (test 3.9 NG/mL 0.0-3.6 H code = mass creatinine kinase-mb) [facility]
[2021-02-27] MEDS ORDERED: D5 0.9 NS 1,000 ML IV ONE (10:57)
[2021-02-27] MEDS ORDERED: FAMOTIDINE 20 MG/2 ML VIAL IV ONE (10:57)
[2021-02-27 11:12] LABS: Absolute Lymphocytes (CBC) 1.2 K/uL (0.7-4.9); Basophils % 0.4 % (0-1.3); Hematocrit 27.9 % (36.0-45.0); Lymphocytes % 20.6 % (15.3-44.8); MPV 7.5 fL (7.6-11.3); RBC Red Blood Cell Count 3.29 M/uL (3.86-4.86)
[2021-02-27 11:30] LABS: Albumin 2.9 g/dL (3.4-5.0); Bilirubin Direct 0.1 mg/dL (0-0.2); Bilirubin Total 0.3 mg/dL (0.2-1.0); Potassium 4.3 mmol/L (3.5-5.1); Troponin (Emerg Dept Use Only) 0.04 ng/mL (0.0-0.045)
--- NOTE | 2021-02-27 12:07 | RAD REPORT ---
EXAM DESCRIPTION: CT - Abdomen Pelvis W Contrast - 02/27/2021 11:47 am CLINICAL HISTORY: ABD PAIN COMPARISON: Abdomen Pelvis W Contrast dated 01/01/2021 TECHNIQUE: Biphasic, helical CT imaging of the abdomen and pelvis was performed following 100 ml non -ionic IV contrast. No oral contrast administered. All CT scans are performed using dose optimization technique as appropriate and may include automated exposure control or mA/KV adjustment according to patient size. FINDINGS: No suspicious findings in the lung bases. Moderate-size hiatal hernia is present with approximately 25% of the stomach intrathoracic. No fluid or fluid retained within the distal esophagus. The liver, spleen, and pancreas show no suspicious findings. Gallbladder is contracted and could mask small stones. No biliary tree dilatation. Symmetric renal function is seen with no hydronephrosis or suspicious renal mass. No obstructing calc armand. Nonobstructing calyx calculi seen in the lower left kidney matching the January 01 study. No pyelo nephritis or acute parenchymal process. No bladder abnormalities. No adrenal abnormalities. Intraabdominal portion of the stomach is not abnormally filled with fluid or food. No gastric outlet abnormalities. The small bowel loops are unremarkable. Mild to moderate volume of stool scattered thr oughout the colon. Sigmoid colon is tortuous and redundant extending up to the umbilical level anteri meghan. There is diverticulosis without diverticulitis in the left-side of the colon. An acute colon pr ocess is not identifiable. No suspicion for appendicitis. No free air, free fluid or inflammatory stranding. No mass or bulky lymphadenopathy. Minimal fat onl y umbilical hernia is present but no significant. No suspicious bony findings. Disc and bony degenerative changes are present without a pathologic comp onent. Exam has motion degradation limitation. IMPRESSION: Contrast enhanced CT abdomen and pelvis showing no acute or emergent finding. Nonacute findings detailed in the body of the report.
[2021-02-27 12:23] LABS: Urine Blood Negative (Negative); Urine Glucose Negative (Negative); Urine Protein Negative (Negative); Urine pH 5.5 (5.0-7.0)
--- NOTE | 2021-02-27 12:37 | ER ---
Nurse's Notes [facility] Name: Kyler Rushing Age: 75 yrs Sex: Female : 1945 Arrival Date: 02/27/2021 Time: 10:13 Bed 17 Private MD: Diagnosis: Upper abdominal pain, unspecified Presentation: 02/27 10:13 Chief complaint: EMS states: Pt from home, advanced Alzheimer's, usually has around the jl7 clock care but home health nurse called in sick. Toned out by pt for abdominal pain and a BEAR, BGL was 60 on arrival, gave her crackers and juice and it was 75 pn next check. Coronavirus screen: Client denies travel out of the [place] in the last 14 days. At this time, the client does not indicate any symptoms associated with coronavirus-19. Ebola Screen: No symptoms or risks identified at this time. Initial Sepsis Screen: Does the patient meet any 2 criteria? No. Patient's initial sepsis screen is negative. Does the patient have a suspected source of infection? No. Patient's initial sepsis screen is negative. Risk Assessment: Do you want to hurt yourself or someone else? Patient reports no desire to harm self or others. Onset of symptoms was February 27, 2021. Care prior to arrival: Glucose check: 60. Care prior to arrival: Glucose check: 75. 10:13 Method Of Arrival: EMS: [facility] 10:13 Acuity: TOVA 3 jl7 Triage Assessment: 10:24 General: Appears in no apparent distress. uncomfortable, Behavior is calm, cooperative, jl7 appropriate for age. Pain: Complains of pain in abdomen diffusely. Neuro: Level of Consciousness is awake, alert, obeys commands. Cardiovascular: Patient's skin is warm and dry. Respiratory: Airway is patent Respiratory effort is even, unlabored, Respiratory pattern is regular, symmetrical. GI: Abdomen is round non-distended. Derm: Skin is pink, warm \\T\\ dry. Historical: - Allergies: 10:17 No Known Allergies; jl7 - Home Meds: 10:17 Plavix 75 mg Oral tab 1 tab once daily [Active]; jl7 - PMHx: 10:17 Diabetes - IDDM; Hypertension; High Cholesterol; jl7 - Immunization history:: Adult Immunizations unknown. - Social history:: Smoking status: unknown. - Family history:: not pertinent. Screenin:25 Abuse screen: Denies threats or abuse. Denies injuries from another. Nutritional ca1 screening: No deficits noted. Tuberculosis screening: No symptoms or risk factors identified. Fall Risk Secondary diagnosis (15 points) dementia, IV access (20 points). Total Coronado Fall Scale indicates Low Risk Score (25-44 pts). Fall prevention measures have been instituted. Side Rails Up X 2 Frequent Obs/Assesments occuring As available Patient and Family Educated on Fall Prevention Program and strategies. Assessment: 10:25 General: Appears in no apparent distress. comfortable, Behavior is calm, cooperative, ca1 appropriate for age. Pain: Complains of pain in right upper quadrant and right lower quadrant Pain currently is 5 out of 10 on a pain scale. Pain began this morning Is continuous. Neuro: Level of Consciousness is awake, alert, obeys commands, Oriented to person, place, time, situation. Cardiovascular: Heart tones S1 S2 present Capillary refill < 3 seconds Patient's skin is warm and dry. Respiratory: Airway is patent Respiratory effort is even, unlabored, Respiratory pattern is regular, symmetrical, Breath sounds are clear bilaterally. GI: Abdomen is round non-distended, Bowel sounds present X 4 quads. Abd is soft X 4 quads Abdomen is tender to palpation in right upper quadrant and right lower quadrant Patient currently denies diarrhea, nausea, vomiting. : No signs and/or symptoms were reported regarding the genitourinary system. EENT: No signs and/or symptoms were reported regarding the EENT system. Derm: Skin is intact, is healthy with good turgor, Skin is pink, warm \\T\\ dry. Musculoskeletal: Circulation, motion, and sensation intact. Capillary refill < 3 seconds. 12:15 Reassessment: Patient appears in no apparent distress at this time. Patient and/or ca1 family updated on plan of care and expected duration. Pain level reassessed. Patient is alert, oriented x 3, equal unlabored respirations, skin warm/dry/pink. 12:56 Reassessment: Patient appears in no apparent distress at this time. Patient and/or ca1 family updated on plan of care and expected duration. Pain level reassessed. Patient is alert, oriented x 3, equal unlabored respirations, skin warm/dry/pink. Called daughter for updates and discharge. Daughter states, "I cannot pick her up until after 5pm when I get off work". 13:14 Reassessment: Called Nuha Daughter in law [phone] for picker and sorter load and unload. Awaiting picker and sorter load and unload. ca1 13:24 Reassessment: Patient appears in no apparent distress at this time. Patient is alert, ca1 oriented x 3, equal unlabored respirations, skin warm/dry/pink. Patient states feeling better. Patient states symptoms have improved. 14:00 Reassessment: Patient appears in no apparent distress at this time. Patient is alert, ca1 oriented x 3, equal unlabored respirations, skin warm/dry/pink. Patient states feeling better. Vital Signs: 10:13 BP 116 / 66; Pulse 86; Resp 17; Temp 98.7; Pulse Ox 100% ; jl7 11:00 BP 103 / 71; Pulse 88; Resp 16 S; Pulse Ox 100% on R/A; ca1 12:16 BP 129 / 85; Pulse 79; Resp 16 S; Pulse Ox 98% on R/A; ca1 13:15 BP 110 / 66; Pulse 81; Resp 16 S; Pulse Ox 99% on R/A; ca1 14:00 BP 115 / 76; Pulse 86; Resp 16 S; Pulse Ox 99% on R/A; ca1 ED Course: 10:13 Patient arrived in ED. jl7 10:17 Triage completed. jl7 10:17 Arm band placed on right wrist. jl7 10:18 Joann Nevarez, ANDRE is Primary Nurse. ca1 10:22 Uri Navarrete MD is Attending Physician. ma2 10:25 Patient has correct armband on for positive identification. Bed in low position. Call ca1 light in reach. Side rails up X2. Pulse ox on. NIBP on. Warm blanket given. 10:50 Missed attempt(s): 20 gauge in right antecubital area. Bleeding controlled, band aid ca1 applied, catheter tip intact. 11:03 Initial lab(s) drawn, by me, sent to lab. Inserted saline lock: 22 gauge in right ca1 forearm, using aseptic technique. Blood collected. 11:47 CT Abd/Pelvis - IV Contrast Only In Process Unspecified. EDMS 12:16 Straight cath inserted, using sterile technique, 16 Fr. Specimen obtained. Returned ca1 cloudy urine. Patient tolerated well. 13:25 No provider procedures requiring assistance completed. IV discontinued, intact, ca1 bleeding controlled, No redness/swelling at site. Pressure dressing applied. Administered Medications: 11:04 Drug: Pepcid (famotidine) 20 mg Route: IVP; Site: right forearm; ca1 12:28 Follow up: Response: No adverse reaction ca1 11:06 Drug: D5-NS 1000 ml Route: IV; Rate: 125 ml/hr; Site: right forearm; ca1 14:04 Follow up: Response: No adverse reaction; IV Status: PT discharged; IV Intake: 250ml ca1 Point of Care Testing: Blood Glucose: 10:25 Blood Glucose: 77 mg/dL; jl7 Ranges: Intake: 14:04 IV: 250ml; Total: 250ml. ca1 Outcome: 12:37 Discharge ordered by . kirk 14:05 Discharged to home via wheelchair, with family. ca1 14:05 Condition: stable 14:05 Discharge instructions given to patient, Instructed on discharge instructions, follow up and referral plans. medication usage, Demonstrated understanding of instructions, follow-up care, medications, Prescriptions given X 1. 14:06 Patient left the ED. ca1 Signatures: Dispatcher [employer] EDEnid Monterroso RN RN jl7 Uri Navarrete MD MD maJoann Bullard RN RN ca1
--- NOTE | 2021-02-27 12:38 | EDPHYS ---
Physician Documentation [facility] Name: Kyler Rushing Age: 75 yrs Sex: Female : 1945 Arrival Date: 02/27/2021 Time: 10:13 Bed 17 Private MD: ED Physician Uri Navarrete HPI: 02/27 10:26 This 75 yrs old Black Female presents to ER via EMS with complaints of Abdominal Pain. ma2 10:26 Associated signs and symptoms: Pertinent negatives: blood in stools, constipation, ma2 diarrhea, dysuria. Severity of pain: At its worst the pain was mild in the emergency department the pain is unchanged. The patient has experienced similar episodes in the past. Historical: - Allergies: 10:17 No Known Allergies; jl7 - Home Meds: 10:17 Plavix 75 mg Oral tab 1 tab once daily [Active]; jl7 - PMHx: 10:17 Diabetes - IDDM; Hypertension; High Cholesterol; jl7 - Immunization history:: Adult Immunizations unknown. - Social history:: Smoking status: unknown. - Family history:: not pertinent. ROS: 10:26 Constitutional: Negative for fever, chills, and weight loss. ma2 10:26 All other systems are negative. Exam: 10:26 Constitutional: This is a well developed, well nourished patient who is awake, alert, ma2 and in no acute distress. Chest/axilla: Normal chest wall appearance and motion. Nontender with no deformity. No lesions are appreciated. Cardiovascular: Regular rate and rhythm with a normal S1 and S2. No gallops, murmurs, or rubs. Normal PMI, no JVD. No pulse deficits. Respiratory: Lungs have equal breath sounds bilaterally, clear to auscultation and percussion. No rales, rhonchi or wheezes noted. No increased work of breathing, no retractions or nasal flaring. Abdomen/GI: Soft, non-tender, with normal bowel sounds. No distension or tympany. No guarding or rebound. No evidence of tenderness throughout. Skin: Warm, dry with normal turgor. Normal color with no rashes, no lesions, and no evidence of cellulitis. MS/ Extremity: Pulses equal, no cyanosis. Neurovascular intact. Full, normal range of motion. Neuro: Awake and alert, GCS 15, oriented to person, place, time, and situation. Cranial nerves II-XII grossly intact. Motor strength 5/5 in all extremities. Sensory grossly intact. Cerebellar exam normal. Normal gait. Vital Signs: 10:13 BP 116 / 66; Pulse 86; Resp 17; Temp 98.7; Pulse Ox 100% ; jl7 11:00 BP 103 / 71; Pulse 88; Resp 16 S; Pulse Ox 100% on R/A; ca1 12:16 BP 129 / 85; Pulse 79; Resp 16 S; Pulse Ox 98% on R/A; ca1 13:15 BP 110 / 66; Pulse 81; Resp 16 S; Pulse Ox 99% on R/A; ca1 14:00 BP 115 / 76; Pulse 86; Resp 16 S; Pulse Ox 99% on R/A; ca1 MDM: 10:22 Patient medically screened. ma2 10:26 Differential diagnosis: diverticulitis, gastritis, gastroesophageal reflux disease, ma2 Irritable bowel syndrome. Data reviewed: vital signs, nurses notes. Counseling: I had a detailed discussion with the patient and/or guardian regarding: the historical points, exam findings, and any diagnostic results supporting the discharge/admit diagnosis, the presence of at least one elevated blood pressure reading (>120/80) during this emergency department visit, the need for further work-up and treatment in the hospital. Response to treatment: the patient's symptoms have markedly improved after treatment. ED course: ems also report hypoglycemia to 60 . 02/27 10:25 Order name: Basic Metabolic Panel [facility] 02/27 10:25 Order name: CBC with Diff [facility] 02/27 10:25 Order name: Hepatic Function [facility] 02/27 10:25 Order name: Lipase; Complete Time: 11:56 [facility] 02/27 10:25 Order name: Troponin (emerg Dept Use Only); Complete Time: 11:56 [facility] 02/27 10:26 Order name: Basic Metabolic Panel; Complete Time: 11:56 [facility] 02/27 10:25 Order name: CT Abd/Pelvis - IV Contrast Only; Complete Time: 12:14 [facility] 02/27 10:26 Order name: Liver (Hepatic) Function; Complete Time: 11:56 [facility] 02/27 10:26 Order name: CBC with Automated Diff; Complete Time: 11:56 [facility] 02/27 10:35 Order name: Glucose, Ancillary Testing; Complete Time: 11:56 [facility] 02/27 11:58 Order name: CREATININE WHOLE BLOOD; Complete Time: 12:00 [facility] 02/27 12:23 Order name: Urine Dipstick-Ancillary; Complete Time: 12:36 [facility] 02/27 13:26 Order name: Glucose, Ancillary Testing [facility] 02/27 10:25 Order name: IV Saline Lock; Complete Time: 11:10 [facility] 02/27 10:25 Order name: Labs collected and sent; Complete Time: 11:10 [facility] 02/27 10:25 Order name: Urine Dipstick-Ancillary (obtain specimen); Complete Time: 12:28 [facility] Administered Medications: 11:04 Drug: Pepcid (famotidine) 20 mg Route: IVP; Site: right forearm; ca1 12:28 Follow up: Response: No adverse reaction ca1 11:06 Drug: D5-NS 1000 ml Route: IV; Rate: 125 ml/hr; Site: right forearm; ca1 14:04 Follow up: Response: No adverse reaction; IV Status: PT discharged; IV Intake: 250ml ca1 Point of Care Testing: Blood Glucose: 10:25 Blood Glucose: 77 mg/dL; jl7 Ranges: Critical Glucose Levels:Adult <50 mg/dl or >400 mg/dl <40 mg/dl or >180 mg/dl Disposition: 02/27/21 12:37 Discharged to Home. Impression: Upper abdominal pain, unspecified. - Condition is Stable. - Discharge Instructions: Abdominal Pain, Adult, [id number]. - Prescriptions for Pepcid 20 mg Oral Tablet - take 1 tablet by ORAL route once daily; 20 tablet. - Medication Reconciliation Form, Thank You Letter, Antibiotic Education, Prescription Opioid Use form. - Follow up: Private Physician; When: Tomorrow; Reason: If symptoms return, Continuance of care. Signatures: Dispatcher [employer] EDIN Enid Velazco RN RN jl7 Uri Navarrete MD MD ma2 Joann Nevarez RN RN ca1 Corrections: (The following items were deleted from the chart) 14:06 12:37 02/27/2021 12:37 Discharged to Home. Impression: Upper abdominal pain, ca1 unspecified. Condition is Stable. Forms are Medication Reconciliation Form, Thank You Letter, Antibiotic Education, Prescription Opioid Use. Follow up: Private Physician; When: Tomorrow; Reason: If symptoms return, Continuance of care. ma2
[2021-02-27 14:43] VITALS: TEMP 98.7
[2021-02-27 14:48] VITALS: O2SAT 99
[2021-02-27 14:51] VITALS: BP 115/76
== END 2021-02-27 14:06 | disposition home or self-care (01) ==
LOC: ER 10:11
DX: R10.10 Upper abdominal pain, unspecified (principal); E11.9 Type 2 diabetes mellitus without complications; I10 Essential (primary) hypertension; E78.00 Pure hypercholesterolemia, unspecified; Z79.4 Long term (current) use of insulin
CPT/HCPCS: 96365; 85025; 80048; 36415; 82565; 82947 ×2; 80076; 81003; 84484; 83690; 74177; 51702; 96375; 99284; 96366; Q9967; J7042

== ENCOUNTER 2021-04-05 10:33 | Emergency (ER) | payer OTHER ==
--- OUTSIDE RECORDS SUMMARY | 2021-04-05 10:41 | XMS REPORT | Continuity of Care Document ---
:1945 Author Organization [facility] t Address [address] [place] [address] Care Team Providers Name Role Phone Erica CHIU Primary Care Physician Denise CHIU Attending Clinician Jaylan Kang PhD Attending Clinician Payers Payer Name Policy Type Policy Effective Date Expiration Date Sour ce Number [facility] [id number] 2020 [place] MEDICARE(WELLME 00:00:00 Eveline Juarez) AARP MEDICARE ADVANTAGE [id number] 09/2019-Present MO Problems Condition Condition Condition Status [...] Start Date Stop Date Source Natural father Heart disease [place] [facility] Natural father Hypertension [facility] Natural father Diabetes [facility] thodist Natural mother Heart disease [facility] Natural mother Hy[facility] Social History Social Habit Start Date Stop Date Quantity Comments Source [facility] Alcohol Std Drinks History [facility] Meth odist Alcohol Binge Tobacco use and 2020-04-27 2020-04-[address] [facility] ethodist exposure 00:00:00 00:00:00 Alcohol intake 2020-04-27 2020-04-27 Lifetime [facility] thodist 00:00:00 00:00:00 non-drinker (finding) History [facility] 2020-04-27 2020-04-27 1 [place] Meth odist Alcohol Frequency 00:00:00 00:00:00 Sex Assigned At [address] [facility] ethodist 00:00:00 00:00:00 Smoking Status Start Date Stop Date Source Former Smoker [facility] Never smoker [place] [facility] Medications Ordered Filled Start Stop Current Ordering Indication Dosage Frequency Signature Comments Components Source Medication Medication Date Date Medication? Clinician (SIG) Name Name acetaminoph Yes acute pain 1{tbl} Q6H Take 1 [place] en-codeine 8-19 tablet by Meth adolph (TYLENOL 09:06: mouth st WITH 32 every 6 CODEINE #3) (six) 300-30 mg hours as per tablet needed for moderate pain .acute pain. metFORMIN 2019- Yes 500mg QD Take 500 Heydi ston (GLUCOPHAGE 8-19 mg by Methodi ) 500 mg 09:06: mouth st tablet 31 daily with breakfast. isosorbide 2019- Yes 30mg QD Take 30 mg H [...] Source Name Name influenza, influenza, 2020-06-17 Completed [place] injectable, injectable, 00:00:00 Medical Gr[facility] p quadrivalent quadrivalent influenza, high dose influenza, high 2019-07-15 Completed [place] seasonal dose seasonal 16:23:03 Medical Bon up Vital Signs Vital Name Observation Time Observation Value Comments Source BP Diastolic 2021-01-12 00:00:00 74 mm[facility]Hg] [facility] Height 2021-01-12 00:00:00 62 [in_i] [facility] BP Systolic 2021-01-12 00:00:00 139 mm[facility]Hg[facility] BP Diastolic 2020-11-21 00:00:00 87 mm[Hg] [facility] Height 2020-11-21 00:00:00 62 [in_i] [facility] BMI (Body Mass 2020-11-21 00:00:00 38.8 kg/m2 [facility]) Group BP Systolic 2020-11-21 00:00:00 158 mm[Hg] [facility] Body Weight 2020-11-21 00:00:00 3393 [oz_av] [facility] BP Diastolic 2020-07-11 00:00:00 95 mm[Hg] [facility] Height 2020-07-11 00:00:00 62 [in_i] [facility] BMI (Body Mass 2020-07-11 00:00:00 37.7 kg/m2 [facility] Index) Group BP Systolic 2020-07-11 00:00:00 151 mm[Hg] [facility] Body Weight 2020-07-11 00:00:00 3297 [oz_av] [facility] Height 2020-05-10 00:00:00 62 [in_i] [facility] BMI (Body Mass 2020-05-10 00:00:00 37.9 kg/m2 [facility]) Group Body Weight 2020-05-10 00:00:00 3312 [oz_av] [facility] BP Diastolic 2020-04-11 00:00:00 87 mm[Hg] [facility] Height 2020-04-11 00:00:00 62 [in_i] [facility] BMI (Body Mass 2020-04-11 00:00:00 37.9 kg/m2 [facility] Index) Group BP Systolic 2020-04-11 00:00:00 [...] BMI (Body Mass 2020-02-08 00:00:00 41.4 kg/m2 [facility] Index) Group BP Systolic 2020-02-08 00:00:00 151 mm[Hg] [facility] Body Weight 2020-02-08 00:00:00 3621 [oz_av] [facility] BP Diastolic 2020-01-12 00:00:00 71 mm[Hg] [facility] Height 2020-01-12 00:00:00 62 [in_i] [facility] BMI (Body Mass 2020-01-12 00:00:00 40.6 kg/m2 [facility]) Group BP Systolic 2020-01-12 00:00:00 128 mm[Hg] [facility] Body Weight 2020-01-12 00:00:00 222.1 [lb_av] [facility] BP Diastolic 2019-11-04 00:00:00 76 mm[Hg] [facility] Height 2019-11-04 00:00:00 62 [in_i] [facility] BMI (Body Mass 2019-11-04 00:00:00 41.9 kg/m2 [facility] Index) Group BP Systolic 2019-11-04 00:00:00 125 mm[Hg] [facility] Body Weight 2019-11-04 00:00:00 3664 [oz_av] [facility] BP Diastolic 2019-08-17 00:00:00 94 mm[Hg] [facility] Height 2019-08-17 00:00:00 62 [in_i] [facility] BMI (Body Mass 2019-08-17 00:00:00 42.4 kg/m2 [facility]) Group BP Systolic 2019-08-17 00:00:00 162 mm[Hg] [facility] Body Weight 2019-08-17 00:00:00 3712 [oz_av] [facility] BP Diastolic 2019-07-15 00:00:00 93 mm[Hg] [facility] Height 2019-07-15 00:00:00 62 [in_i] [facility] BMI (Body Mass 2019-07-15 00:00:00 43.2 kg/m2 [facility] Index) Group BP Systolic 2019-07-15 00:00:00 167 mm[Hg] [facility] Body Weight 2019-07-15 00:00:00 3780 [oz_av] [facility] BP Diastolic 2019-07-02 00:00:00 86 mm[Hg] [facility] Height 2019-07-02 00:00:00 62 [in_i] [facility] BMI (Body Mass 2019-07-02 00:00:00 43.5 kg/m2 [facility]) Group BP Systolic 2019-07-02 00:00:00 144 mm[Hg] [facility] Body Weight 2019-07-02 00:00:00 3808 [oz_av] [facility] BP Diastolic 2019-06-08 00:00:00 86 mm[Hg] [facility] Height 2019-06-08 00:00:00 62 [in_i] [facility] BMI (Body Mass 2019-06-08 00:00:00 42.1 kg/m2 [facility] Index) Group BP Systolic 2019-06-08 00:00:00 144 mm[Hg] [facility] Body Weight 2019-06-08 00:00:00 3680 [oz_av] [facility] BP Diastolic 2019-06-02 00:00:00 91 mm[Hg] [facility] Height 2019-06-02 00:00:00 62 [in_i] [facility] BMI (Body Mass 2019-06-02 00:00:00 41.9 kg/m2 [facility]) Group BP Systolic 2019-06-02 00:00:00 145 mm[Hg] [facility] Body Weight 2019-06-02 00:00:00 3665 [oz_av] [facility] BP Diastolic 2019-04-14 00:00:00 76 mm[Hg] [facility] Height 2019-04-14 00:00:00 62 [in_i] [facility] BMI (Body Mass 2019-04-14 00:00:00 43 kg/m2 [facility]) Group BP Systolic 2019-04-14 00:00:00 134 mm[Hg] [facility] Body Weight 2019-04-14 00:00:00 3760 [oz_av] [facility] BP Diastolic 2019-02-03 00:00:00 80 mm[Hg] [facility] Height 2019-02-03 00:00:00 62 [in_i] [facility] BMI (Body Mass 2019-02-03 00:00:00 43.3 kg/m2 [facility]) Group BP Systolic 2019-02-03 00:00:00 143 mm[Hg] [facility] Body Weight 2019-02-03 00:00:00 236.9 [lb_av] [facility] Height 2018-10-30 00:00:00 62 [in_i] [facility] BMI (Body Mass 2018-10-30 00:00:00 44.8 kg/m2 [facility] Index) Group BP Systolic 2018-10-30 00:00:00 152 mm[Hg] [facility] Body Weight 2018-10-30 00:00:00 3923 [oz_av] [facility] Systolic blood 2020-04-27 08:59:00 140 mm[Hg] [place] [facility] pressure Diastolic blood 2020-04-27 08:59:00 74 mm[Hg] [place] [facility] pressure Heart rate 2020-04-27 08:59:00 60 /min [place] [facility] Body temperature 2020-04-27 08:59:00 35.94 [place] [facility] Body weight 2020-04-27 08:59:00 93.441 kg [place] [facility] Procedures Procedure Date / Time Performing Source Performed Clinician unlisted imaging order 2020-03-31 [place] 00:00:00 [facility] XR, ribs, bilateral 2020-03-31 [place] 00:00:00 [facility] MRI, brain, w/o contrast 2019-07-02 [place] 00[facility] US, duplex, carotid artery 2019-07-02 [place] 00:[facility] US, echocardiogram, transthoracic, 2019-07-02 [place] complete, w/ color flow 00:00:00 Medical Group holter monitor 2019-07-02 [place] 00:00:00 Medical Group holter monitor 2019-06-29 [place] 00:00:00 [facility] MAMMO, screening, digital, 2019-06-02 [place] bilateral 00:00:00 [facility] Group MAMMO, screening, digital, 2019-04-14 [place] bilateral 00:00:00 [facility] Group Thyroid Surgery 1979-09-09 [place] 00:00:00 [facility] Hysterectomy [facility] Shoulder Joint Surgery [facility] Appendectomy [facility] Eye Surgery Procedure [place] [facility] Esophagogastroduodenoscopy (Surg) [facility] Plan of Care Planned Activity Planned Date Details Comments Source Future Scheduled 2021-05-10 INFLUENZA VACCINE [place] [facility] Test 00:00:00 [code = INFLUENZA VACCINE] Future Scheduled 1996 BREAST CANCER [facility] thodist Test 00:00:00 SCREENING [code = BREAST CANCER SCREENING] Future Scheduled 1996 COLONOSCOPY SCREENING [place] [facility] Test 00:00:00 [code = COLONOSCOPY SCREENING] Future Scheduled 1996 SHINGLES VACCINES (#1) [place] [facility] Test 00:00:00 [code = SHINGLES VACCINES (#1)] Future Scheduled 1964 Hepatitis C screening [place] [facility] Test 00:00:00 (procedure) [code = 621027671] Future Scheduled 1958 COVID-19 VACCINE (1) Hey[facility] stogiovani [facility] Test 00:00:00 [code = COVID-19 VACCINE (1)] Future Scheduled 1952 65+ PNEUMOCOCCAL [place] [facility] Test 00:00:00 VACCINE (1 of 2 - PPSV23) [code = 65+ PNEUMOCOCCAL VACCINE (1 of 2 - PPSV23)] Encounters Start End Encounter Admission Attending Care Care Encounter Source Date/Time Date/Time Type Type Clinicians Facility Department ID 2021-02-22 2021-02-22 Outpatient DENISE INDER [facility] [id number] [place] 00:00:00 00:00:[address] 2021-01-12 2021-01-12 George [place] - [id number] [place] 00:00:00 00:00:00 [facility] Medical MD: [address] [place] [address] [address], [place] [address] , Ph. 2020-11-21 2020-11-21 George [place] - [id number] [place] 00:00:00 00:00:00 Dallas Borrego MD: [address] [place] [address], [place] [address] , Ph. 2020-07-11 2020-07-11 George MMG [place] - [id number] [place] 00:00:00 00:00:00 Dallas Borrego MD: [address] [place] [address], [place] [address] , Ph. 2020-05-10 2020-05-10 George MMG [place] - [id number] [place] 00:00:00 00:00:00 Dallas Borrego MD: [address] [place] [address], [place] [address] , Ph. 2020-04-27 2020-04-27 Outpatient DENISE INDER [facility] [id number] [place] 00:00:00 00:00:[address] 2020-04-11 2020-04-11 George MMG [place] - [id number] [place] 00:00:00 00:00:00 Dallas Borrego MD: [address] [place] [address], [place] [address] , Ph. 2020-03-31 2020-03-31 Vanessa CISSEG [place] - [id number] [facility]00 Discovery onofre Chandra SURFACE ROOM [employer]IAN: [address] [place] [address] , Ph. 2020-02-08 2020-02-08 George MMG [place] - [id number] [place] 00:00:00 00:00:00 Dallas Borrego MD: [address] [place] [address], [place] [address] , Ph. 2020-01-12 2020-01-12 Fede CISSEG [place] - [id number] M [facility] 00:00:00 00:00:00 Alexandru Sanchez MD: Medical Medica l [address] [place] [address] [address], [place] [address] , Ph. [phone] 2020-01-11 2020-01-11 Mary Ann MM [place] - [id number] M [facility] 00:00:00 00:00:00 Merly Toscano Medical Medical SURFACE ROOM [employer]: [address] [place] [address] [address], [place] [address] , Ph. 2020-01-04 2020-01-04 George [facility] [place] - [id number] [place] 00:00:00 00:00:00 Dallas Borrego Medical MD: [address] [place] [address] [address], [place] [address] , Ph. 2019-11-04 2019-11-04 George [facility] [place] - [id number] [place] 00:00:00 00:00:00 Dallas Borrego MD: [address] [place] [address] [address], [place] [address] , Ph. 2019-08-17 2019-08-17 George CISSE [place] - [id number] [place] 00:00:00 00:00:00 Dallas Borrego MD: [address] [place] [address] [address], [place] [address] , Ph. 2019-07-15 2019-07-15 George CISSE [place] - [id number] [place] 00:00:00 00:00:00 Dallas Borrego MD: [address] [place] [address] [address], [place] [address] , Ph. 2019-07-02 2019-07-02 George C[place]SE [place] - [id number] [place] 00:00:00 00:00:00 Dallas Borrego MD: [address] [place] [address] [address], [place] [address] , Ph. 2019-06-08 2019-06-08 George [facility] [place] - [id number] [place] 00:00:00 00:00:00 Dallas Borrego MD: [address] [place] [address] [address], [place] [address] , Ph. 2019-06-02 2019-06-02 George [facility] [place] - [id number] [place] 00:00:00 00:00:00 Dallas Borrego MD: [address] [place] [address] [address], [place] [address] , Ph. 2019-04-14 2019-04-14 George [facility] [place] - [id number] [place] 00:00:00 00:00:00 Dallas Borrego MD: [address] [place] [address] [address], [place] [address] , Ph. 2019-04-08 2019-04-08 George [facility] [place] - [id number] [place] 00:00:00 00:00:00 Dallas Borrego MD: [address] [place] [address] [address], [place] [address] , Ph. 2019-02-03 2019-02-03 Randell [facility] [place] - [id number] M atagor 00:00:00 00:00:00 Discovery onofre Blum MD: [address] [place] [address] [address], [place] [address] , Ph. 2018-10-30 2018-10-30 George CISSE [place] - [id number] [place] 00:00:00 00:00:00 Dallas Borrego MD: [address] [place] [address], Family [address], [place] [address] , Ph. Results Test Description Test Time [...] L MCV [Entitic volume] (test code = 33378-9) 96.2 fL 86-100 mean corpuscular hemoglobin (test [...] Blood (test code = 76.8 % 44.4-80.1 03086-2) Immature granulocytes [#/volume] in Blood (test code = 0.0 K/uL 0.0-0.03 77939-3) lymphocyte% (test code = lymphocyte%) 15.9 % 10.0-50.0 mono % (test code = mono %) 6.0 % 3.6-12.0 eos % (test code = eos %) 0.8 % 0.0-5.4 Basophils/100 leukocytes in Unspecified specimen (test code 0.1 % 0.1-1.2 = 49636-2) Band form neutrophils [#/volume] in Blood (test code = 5.73 K/uL 1.56-6.13 38859-3) Lymphocytes [#/volume] in Unspecified specimen by Automated 1.2 K/u L 1.18-3.74 count (test code = 36539-8) mono # (test code = mono #) 0.45 K/uL 0.24-0.86 eos # (test code = eos #) 0.06 K/uL 0.04-0.36 basophil # (test code = basophil #) 0.01 K/uL 0.01-0.08 NRBC% (test code = NRBC%) 1 /100 WBC 0-0.2 H NRBC# (test code = NRBC#) 0 K/uL [facility] metabolic 2000 panel - Serum or [id number] 03:00:00 Test Item Value Reference Range Interpretation [...] = 7.8 mg/dL 8.8-10.2 L calcium level) [facility] W Auto Differential panel - [id number] 03:00:00 Test Item Value Reference Range Interpretation Comments white blood count (test code = 7.5 K/uL 4.0-11.5 white blood count) red blood count (test code = red 2.90 M/uL 3.80-5.20 L blood count) hemoglobin (test code = 8.9 g/dL 10.5-15.7 L hemoglobin) hematocrit (test code = 27.9 % 34.0-50.0 L hematocrit) MCV [Entitic volume] (test code = 96.2 fL 86-100 95081-9) mean corpuscular hemoglobin (test 30.7 pg 26.2-33.4 [...] 44.4-80.1 leukocytes in Blood (test code = 38641-2) Immature granulocytes [#/volume] 0.0 K/uL 0.0-0.03 in Blood (test code = 72493-9) lymphocyte% (test code = 15.9 % 10.0-50.0 lymphocyte%) mono % (test code = mono %) 6.0 % 3.6-12.0 eos % (test code = eos %) 0.8 % 0.0-5.4 Basophils/100 leukocytes in 0.1 % 0.1-1.2 Unspecified specimen (test code = 45600-3) Band form neutrophils [#/volume] 5.73 K/uL 1.56-6.13 in Blood (test code = 64381-7) Lymphocytes [#/volume] in 1.2 K/uL 1.18-3.74 Unspecified specimen by Automated count (test code = 48793-4) mono # (test code = mono #) 0.45 K/uL 0.24-0.86 eos # (test code = eos #) 0.06 K/uL 0.04-0.36 basophil # (test code = basophil 0.01 K/uL 0.01-0.08 #) NRBC% (test code = NRBC%) 1 /100 WBC 0-0.2 H NRBC# (test code = NRBC#) 0 K/uL [facility] metabolic 2000 panel - Serum or [id number] 03:00:00 Test Item Value Reference Range Interpretation [...] = 7.8 mg/dL 8.8-10.2 L calcium level) [facility] W Auto Differential panel - [id number] 03:00:00 Test Item Value Reference Range Interpretation Comments white blood count (test code = 7.5 K/uL 4.0-11.5 white blood count) red blood count (test code = red 2.90 M/uL 3.80-5.20 L blood count) hemoglobin (test code = 8.9 g/dL 10.5-15.7 L hemoglobin) hematocrit (test code = 27.9 % 34.0-50.0 L hematocrit) MCV [Entitic volume] (test code = 96.2 fL 86-100 31299-4) mean corpuscular hemoglobin (test 30.7 pg 26.2-33.4 [...] 44.4-80.1 leukocytes in Blood (test code = 19618-2) Immature granulocytes [#/volume] 0.0 K/uL 0.0-0.03 in Blood (test code = 02039-8) lymphocyte% (test code = 15.9 % 10.0-50.0 lymphocyte%) mono % (test code = mono %) 6.0 % 3.6-12.0 eos % (test code = eos %) 0.8 % 0.0-5.4 Basophils/100 leukocytes in 0.1 % 0.1-1.2 Unspecified specimen (test code = 44358-9) Band form neutrophils [#/volume] 5.73 K/uL 1.56-6.13 in Blood (test code = 09412-9) Lymphocytes [#/volume] in 1.2 K/uL 1.18-3.74 Unspecified specimen by Automated count (test code = 35738-3) mono # (test code = mono #) 0.45 K/uL 0.24-0.86 eos # (test code = eos #) 0.06 K/uL 0.04-0.36 basophil # (test code = basophil 0.01 K/uL 0.01-0.08 #) NRBC% (test code = NRBC%) 1 /100 WBC 0-0.2 H NRBC# (test code = NRBC#) 0 K/uL [facility] metabolic 2000 panel - Serum or [id number] 03:00:00 Test Item Value Reference Range Interpretation [...] = 7.8 mg/dL 8.8-10.2 L calcium level) [facility] W Auto Differential panel - [id number] 12:59:00 Test Item Value Reference Range Interpretation Comments white blood count (test code = 8.7 K/uL 4.0-11.5 white blood count) red blood count (test code = red 3.00 M/uL 3.80-5.20 L blood count) hemoglobin (test code = 9.1 g/dL 10.5-15.7 L hemoglobin) hematocrit (test code = 28.4 % 34.0-50.0 L hematocrit) MCV [Entitic volume] (test code = 94.7 fL 86-100 02480-4) mean corpuscular hemoglobin (test 30.3 pg 26.2-33.4 [...] 44.4-80.1 leukocytes in Blood (test code = 20606-6) Immature granulocytes [#/volume] 0.0 K/uL 0.0-0.03 H in Blood (test code = 25380-7) lymphocyte% (test code = 12.6 % 10.0-50.0 lymphocyte%) mono % (test code = mono %) 6.0 % 3.6-12.0 eos % (test code = eos %) 0.6 % 0.0-5.4 Basophils/100 leukocytes in 0.2 % 0.1-1.2 Unspecified specimen (test code = 32981-5) Band form neutrophils [#/volume] 6.95 K/uL 1.56-6.13 H in Blood (test code = 49423-2) Lymphocytes [#/volume] in 1.1 K/uL 1.18-3.74 L Unspecified specimen by Automated count (test code = 07943-3) mono # (test code = mono #) 0.52 K/uL 0.24-0.86 eos # (test code = eos #) 0.05 K/uL 0.04-0.36 basophil # (test code = basophil 0.02 K/uL 0.01-0.08 #) NRBC% (test code = NRBC%) 1 /100 WBC 0-0.2 H NRBC# (test code = NRBC#) 0 K/uL [facility] metabolic 2000 panel - Serum or [id number] 12:59:00 Test Item Value Reference Range Interpretation [...] = 7.8 mg/dL 8.8-10.2 L calcium level) [facility] W Auto Differential panel - [id number] 12:59:00 Test Item Value Reference Range Interpretation Comments white blood count (test code = 8.7 K/uL 4.0-11.5 white blood count) red blood count (test code = red 3.00 M/uL 3.80-5.20 L blood count) hemoglobin (test code = 9.1 g/dL 10.5-15.7 L hemoglobin) hematocrit (test code = 28.4 % 34.0-50.0 L hematocrit) MCV [Entitic volume] (test code = 94.7 fL 86-100 32246-9) mean corpuscular hemoglobin (test 30.3 pg 26.2-33.4 [...] 44.4-80.1 leukocytes in Blood (test code = 80706-0) Immature granulocytes [#/volume] 0.0 K/uL 0.0-0.03 H in Blood (test code = 84778-0) lymphocyte% (test code = 12.6 % 10.0-50.0 lymphocyte%) mono % (test code = mono %) 6.0 % 3.6-12.0 eos % (test code = eos %) 0.6 % 0.0-5.4 Basophils/100 leukocytes in 0.2 % 0.1-1.2 Unspecified specimen (test code = 58638-4) Band form neutrophils [#/volume] 6.95 K/uL 1.56-6.13 H in Blood (test code = 26373-4) Lymphocytes [#/volume] in 1.1 K/uL 1.18-3.74 L Unspecified specimen by Automated count (test code = 16418-3) mono # (test code = mono #) 0.52 K/uL 0.24-0.86 eos # (test code = eos #) 0.05 K/uL 0.04-0.36 basophil # (test code = basophil 0.02 K/uL 0.01-0.08 #) NRBC% (test code = NRBC%) 1 /100 WBC 0-0.2 H NRBC# (test code = NRBC#) 0 K/uL [facility] metabolic 2000 panel - Serum or [id number] 12:59:00 Test Item Value Reference Range Interpretation [...] = 7.8 mg/dL 8.8-10.2 L calcium level) [facility] W Auto Differential panel - [id number] 12:59:00 Test Item Value Reference Range Interpretation Comments white blood count (test code = 8.7 K/uL 4.0-11.5 white blood count) red blood count (test code = red 3.00 M/uL 3.80-5.20 L blood count) hemoglobin (test code = 9.1 g/dL 10.5-15.7 L hemoglobin) hematocrit (test code = 28.4 % 34.0-50.0 L hematocrit) MCV [Entitic volume] (test code = 94.7 fL 86-100 27094-0) mean corpuscular hemoglobin (test 30.3 pg 26.2-33.4 [...] 44.4-80.1 leukocytes in Blood (test code = 55691-1) Immature granulocytes [#/volume] 0.0 K/uL 0.0-0.03 H in Blood (test code = 45241-7) lymphocyte% (test code = 12.6 % 10.0-50.0 lymphocyte%) mono % (test code = mono %) 6.0 % 3.6-12.0 eos % (test code = eos %) 0.6 % 0.0-5.4 Basophils/100 leukocytes in 0.2 % 0.1-1.2 Unspecified specimen (test code = 97528-1) Band form neutrophils [#/volume] 6.95 K/uL 1.56-6.13 H in Blood (test code = 45360-8) Lymphocytes [#/volume] in 1.1 K/uL 1.18-3.74 L Unspecified specimen by Automated count (test code = 95167-8) mono # (test code = mono #) 0.52 K/uL 0.24-0.86 eos # (test code = eos #) 0.05 K/uL 0.04-0.36 basophil # (test code = basophil 0.02 K/uL 0.01-0.08 #) NRBC% (test code = NRBC%) 1 /100 WBC 0-0.2 H NRBC# (test code = NRBC#) 0 K/uL [facility] metabolic 2000 panel - Serum or [id number] 12:59:00 Test Item Value Reference Range Interpretation [...] = 7.8 mg/dL 8.8-10.2 L calcium level) [facility] - [id number] 10:15:00 Test Item Value Reference Range Interpretation Comments hemoglobin (test code = hemoglobin) 9.4 g/dL 10.5-15.7 hematocrit (test code = hematocrit) 29.4 % 34.0-50.0 [facility] - [id number] 10:15:00 Test Item Value Reference Range Interpretation Comments hemoglobin (test code = hemoglobin) 9.4 g/dL 10.5-15.7 hematocrit (test code = hematocrit) 29.4 % 34.0-50.0 [facility] - [id number] 10:15:00 Test Item Value Reference Range Interpretation Comments hemoglobin (test code = hemoglobin) 9.4 g/dL 10.5-15.7 hematocrit (test code = hematocrit) 29.4 % 34.0-50.0 [facility] - [id number] 01:45:00 Test Item Value Reference Range Interpretation Comments white blood count (test code = 8.4 K/uL 4.0-11.5 white blood count) red blood count (test code = red 2.27 M/uL 3.80-5.20 L blood count) hemoglobin (test code = 7.0 g/dL 10.5-15.7 L hemoglobin) hematocrit (test code = 21.8 % 34.0-50.0 L hematocrit) MCV [Entitic volume] (test code = 96.0 fL 86-100 71659-2) mean corpuscular hemoglobin (test 30.8 pg 26.2-33.4 [...] 44.4-80.1 leukocytes in Blood (test code = 23211-0) Immature granulocytes [#/volume] 0.0 K/uL 0.0-0.03 H in Blood (test code = 42082-9) lymphocyte% (test code = 14.9 % 10.0-50.0 lymphocyte%) mono % (test code = mono %) 5.5 % 3.6-12.0 eos % (test code = eos %) 0.7 % 0.0-5.4 Basophils/100 leukocytes in 0.1 % 0.1-1.2 Unspecified specimen (test code = 95466-4) Band form neutrophils [#/volume] 6.55 K/uL 1.56-6.13 H in Blood (test code = 43449-4) Lymphocytes [#/volume] in 1.3 K/uL 1.18-3.74 Unspecified specimen by Automated count (test code = 17814-0) mono # (test code = mono #) 0.46 K/uL 0.24-0.86 eos # (test code = eos #) 0.06 K/uL 0.04-0.36 basophil # (test code = basophil 0.01 K/uL 0.01-0.08 #) NRBC% (test code = NRBC%) 3 /100 WBC 0-0.2 H NRBC# (test code = NRBC#) 0 K/uL [facility], method unspecified - [id number] 01:45:00NeutrophilsBandLymphocyteMonocyteEosinophilPlatelet EstimateMataPascagoula HospitalBasi metabolic 2000 panel - Serum or Sezdxm9476-25-74 01:45:00 Test Item Value Reference Range Interpretation [...] = 7.9 mg/dL 8.8-10.2 L calcium level) [facility] W Auto Differential panel - [id number] 01:45:00 Test Item Value Reference Range Interpretation Comments white blood count (test code = 8.4 K/uL 4.0-11.5 white blood count) red blood count (test code = red 2.27 M/uL 3.80-5.20 L blood count) hemoglobin (test code = 7.0 g/dL 10.5-15.7 L hemoglobin) hematocrit (test code = 21.8 % 34.0-50.0 L hematocrit) MCV [Entitic volume] (test code = 96.0 fL 86-100 95356-1) mean corpuscular hemoglobin (test 30.8 pg 26.2-33.4 [...] 44.4-80.1 leukocytes in Blood (test code = 16290-6) Immature granulocytes [#/volume] 0.0 K/uL 0.0-0.03 H in Blood (test code = 26633-3) lymphocyte% (test code = 14.9 % 10.0-50.0 lymphocyte%) mono % (test code = mono %) 5.5 % 3.6-12.0 eos % (test code = eos %) 0.7 % 0.0-5.4 Basophils/100 leukocytes in 0.1 % 0.1-1.2 Unspecified specimen (test code = 42104-7) Band form neutrophils [#/volume] 6.55 K/uL 1.56-6.13 H in Blood (test code = 80440-3) Lymphocytes [#/volume] in 1.3 K/uL 1.18-3.74 Unspecified specimen by Automated count (test code = 05022-4) mono # (test code = mono #) 0.46 K/uL 0.24-0.86 eos # (test code = eos #) 0.06 K/uL 0.04-0.36 basophil # (test code = basophil 0.01 K/uL 0.01-0.08 #) NRBC% (test code = NRBC%) 3 /100 WBC 0-0.2 H NRBC# (test code = NRBC#) 0 K/uL [facility]portDifferent[facility] panel, method unspecified - [id number] 01:45:00NeutrophilsBandLymphocyteMonocyteEosinophilPlatelet EstimateMatagoParkwood Behavioral Health SystemBasic metabolic 2000 panel - Serum or Phbedo8486-96-70 01:45:00 Test Item Value Reference Range Interpretation [...] = 7.9 mg/dL 8.8-10.2 L calcium level) [facility] W Auto Differential panel - [id number] 01:45:00 Test Item Value Reference Range Interpretation Comments white blood count (test code = 8.4 K/uL 4.0-11.5 white blood count) red blood count (test code = red 2.27 M/uL 3.80-5.20 L blood count) hemoglobin (test code = 7.0 g/dL 10.5-15.7 L hemoglobin) hematocrit (test code = 21.8 % 34.0-50.0 L hematocrit) MCV [Entitic volume] (test code = 96.0 fL 86-100 12063-6) mean corpuscular hemoglobin (test 30.8 pg 26.2-33.4 [...] 44.4-80.1 leukocytes in Blood (test code = 74469-4) Immature granulocytes [#/volume] 0.0 K/uL 0.0-0.03 H in Blood (test code = 46018-6) lymphocyte% (test code = 14.9 % 10.0-50.0 lymphocyte%) mono % (test code = mono %) 5.5 % 3.6-12.0 eos % (test code = eos %) 0.7 % 0.0-5.4 Basophils/100 leukocytes in 0.1 % 0.1-1.2 Unspecified specimen (test code = 98196-8) Band form neutrophils [#/volume] 6.55 K/uL 1.56-6.13 H in Blood (test code = 19433-2) Lymphocytes [#/volume] in 1.3 K/uL 1.18-3.74 Unspecified specimen by Automated count (test code = 07437-0) mono # (test code = mono #) 0.46 K/uL 0.24-0.86 eos # (test code = eos #) 0.06 K/uL 0.04-0.36 basophil # (test code = basophil 0.01 K/uL 0.01-0.08 #) NRBC% (test code = NRBC%) 3 /100 WBC 0-0.2 H NRBC# (test code = NRBC#) 0 K/uL [facility]Different[facility] panel, method unspecified - [id number] 01:45:00NeutrophilsBandLymphocyteMonocyteEosinophilPlatelet EstimateMataPascagoula HospitalBasic metabolic 2000 panel - Serum or Isepkg8219-08-76 01:45:00 Test Item Value Reference Range Interpretation [...] = 7.9 mg/dL 8.8-10.2 L calcium level) [facility] - [id number] 13:40:00 Test Item Value Reference Range Interpretation Comments Blood type and Crossmatch unit number: panel - Blood (test code [id number] = 22054-9) [place] [id number] 13:40:[facility] 13:40:[facility] [place] [id number] 13:40:00Results [place] [id number] 13:40:[facility] 13:40:00ResultsR[place] 73640020-05-08 13:40:00Results [place] 73640020-05-08 13:40:00[facility] 2020-01-15 13:40:[facility]Water[facility] Hospitalrda [place] [id number] 13:40:00Results [place] 73640020-05-08 13:40:[facility] 2020-01-15 13:40:00ResultsIdtarda [place] [address]Safvdprf8523-89-17 13:40:00Results [place] 73640020-05-08 13:40:00Results[facility] hospitala [facility] 2020-01-15 13:40:00[facility] Exhftkyh9336-25-22 13:40:00Results [facility] Opbawgld3190-44-97 13:40:00[facility] 2020-01-15 13:40:00[facility] Gigbpnlg9129-91-54 13:40:00Results [facility] Pgdhbsjj3842-72-10 13:40:00[facility] 2020-01-15 13:40:00[facility] Auyzhxxl5734-01-83 13:40:00Results [facility] Wcfygdcy4021-79-01 13:40:00[facility] 2020-01-15 13:40:00[facility] Aaadwkxj7354-09-26 13:40:00Results [facility] Dbdfogyl8689-88-19 13:40:00[facility] 2020-01-15 13:40:00[facility] Swqrrlgg8428-06-19 13:40:00Results [facility] GroupBlood type and Crossmatch panel - [id number] 13:40:00 Test Item Value Reference Range Interpretation Comments Blood type and Crossmatch unit number: panel - Blood (test code [id number] = 50762-0) [facility] Pcazocef4039-23-70 13:40:00Results[facility] 2020-01-15 13:40:00[facility] Ufenjfov7544-97-25 13:40:00Results [facility] Davsmmfk9067-46-40 13:40:00[facility] 2020-01-15 13:40:00[facility] Nofuvrwx4015-07-08 13:40:00Results [facility] Sduwoqfe0507-84-49 13:40:00[facility] 2020-01-15 13:40:00[facility] Ouarpatk0422-59-45 13:40:00Results [facility] Qosjcqpy8094-49-64 13:40:00[facility] 2020-01-15 13:40:00[facility] Lnsmjodt6649-25-74 13:40:00Results [facility] Jxufycig4098-79-28 13:40:00[facility] 2020-01-15 13:40:00[facility] Ortpnwxl1675-20-52 13:40:00Results [facility] Jtcnakaw1370-88-30 13:40:00[facility] 2020-01-15 13:40:00[facility] Cvuxrcra8879-64-84 13:40:00Results [facility] Acwgfldj7554-82-16 13:40:00[facility] 2020-01-15 13:40:00[facility] Neiicrdt5702-45-57 13:40:00Results [facility] Dzepcjvf6361-79-18 13:40:00[facility] 2020-01-15 13:40:00[facility] Jflevotj3184-65-62 13:40:00Results [facility] Jcnasrnj8682-85-59 13:40:00[facility] 2020-01-15 13:40:00[facility] Flrcjrfh5348-66-04 13:40:00Results [facility] GroupBlood type and Crossmatch panel - [id number] 13:40:00 Test Item Value Reference Range Interpretation Comments Blood type and Crossmatch unit number: panel - Blood (test code [id number] = 18630-2) [facility] Irbudevb3981-80-32 13:40:00[facility] 2020-01-15 13:40:00[facility] Kouysclw4789-66-90 13:40:00Results [facility] Dchysuix9711-91-18 13:40:00Results[facility] 2020-01-15 13:40:00[facility] Jodfbydd6765-10-35 13:40:00Results [facility] Uiqizxnz3783-73-16 13:40:00Results[facility] 2020-01-15 13:40:00[facility] Seixirwe1260-21-40 13:40:00Results [facility] Memxjdpt8308-91-15 13:40:00Results[facility] 2020-01-15 13:40:00[facility] Ethuyqbt4527-65-70 13:40:00Results [facility] Aalwfzgh1729-43-97 13:40:00Results[facility] 2020-01-15 13:40:00Results[facility] Vmjazspk8203-86-65 13:40:00Results [facility] Wzvlezmy1022-10-89 13:40:00Results[facility] 2020-01-15 13:40:00Results[facility] Wkqgtild0890-49-87 13:40:00Results [facility] Pyvpsmps0809-97-16 13:40:00Results[facility] 2020-01-15 13:40:00Results[facility] Hjwapjyw9312-76-69 13:40:00Results [facility] Mvozyosj9434-34-18 13:40:00Results[facility] 2020-01-15 13:40:00Results[facility] Bcrxdcds7992-10-57 13:40:00Results [facility] Ssnkbgro8982-65-43 13:40:00Results[facility]portup 2020-[facility]-15 13:40:00ResultsSing[facility]portupc2020-05-08 13:40:00Results [facility]portHemoglobin and Hematocrit panel - Nebhs5784-09-54 09:48:00 Test Item Value Reference Range Interpretation Comments hemoglobin (test code = hemoglobin) 7.6 g/dL 10.5-15.7 hematocrit (test code = hematocrit) 23.5 % 34.0-50.0 [facility]portHemoglobin and Hematocrit panel - [id number] 09:48:00 Test Item Value Reference Range Interpretation Comments hemoglobin (test code = hemoglobin) 7.6 g/dL 10.5-15.7 hematocrit (test code = hematocrit) 23.5 % 34.0-50.0 [facility]portHemoglobin and Hematocrit panel - [id number] 09:48:00 Test Item Value Reference Range Interpretation Comments hemoglobin (test code = hemoglobin) 7.6 g/dL 10.5-15.7 hematocrit (test code = hematocrit) 23.5 % 34.0-50.0 [facility]portPT/[id number] 08:07:00 Test Item Value Reference Range Interpretation Comments prothrombin time (test code = 10.4 seconds 10.3-12.3 prothrombin time) INR in Blood by Coagulation 0.96 assay (test code = 23935-1) [facility]portpartial thromboplastin [id number] 08:07:00 Test Item Value Reference Range Interpretation Comments INR in Blood by Coagulation 22.0 seconds 22.5-37.0 L assay (test code = 80817-2) [facility]portBlood type and Indirect antibody screen panel - Blood 2020-01-15 08:07:00 Test Item Value Reference Range Interpretation Comments Rh [Type] in Blood (test code = neg 08743-7) ABO and Rh group panel - Blood O negative (test code = 24548-1) [facility]portPT/FGJ1153-01-33 08:07:00 Test Item Value Reference Range Interpretation Comments prothrombin time (test code = 10.4 seconds 10.3-12.3 prothrombin time) INR in Blood by Coagulation 0.96 assay (test code = 36431-7) [facility] thromboplastin ueac5593-01-96 08:07:00 Test Item Value Reference Range Interpretation Comments INR in Blood by Coagulation 22.0 seconds 22.5-37.0 L assay (test code = 04747-2) [facility]portBlood type and Indirect antibody screen panel - Blood 2020-01-15 08:07:00 Test Item Value Reference Range Interpretation Comments Rh [Type] in Blood (test code = neg 53366-5) ABO and Rh group panel - Blood O negative (test code = 39170-4) [facility]portPT/ECB6556-72-60 08:07:00 Test Item Value Reference Range Interpretation Comments prothrombin time (test code = 10.4 seconds 10.3-12.3 prothrombin time) INR in Blood by Coagulation 0.96 assay (test code = 00754-8) [facility] thromboplastin gjce3971-42-92 08:07:00 Test Item Value Reference Range Interpretation Comments INR in Blood by Coagulation 22.0 seconds 22.5-37.0 L assay (test code = 86643-2) [facility]portBlood type and Indirect antibody screen panel - Blood 2020-01-15 08:07:00 Test Item Value Reference Range Interpretation Comments Rh [Type] in Blood (test code = neg 78902-5) ABO and Rh group panel - Blood O negative (test code = 08595-2) [facility]portComprehensive metabolic 2000 panel - Serum or Plasma [...] Serum or Plasma (test code = 6768-6) [facility] GroupCreatine kinase [Enzymatic activity/volume] in Serum or Pgsjzx5173-27-73 07:32:00 Test Item Value Reference Range Interpretation Comments creatine kinase (test code = creatine 901 U/L 20-180 H kinase) [facility]portNatriuretic peptide.B prohormone N-Terminal [Mass/volume] in Serum or Opvwel9073-57-82 07:32:00 Test Item Value Reference Range Interpretation Comments N-term pro natriuretic peptide (test 91 pg/mL 0-125 code = N-term pro natriuretic peptide) [facility]portTroponin I.cardiac [Mass/volume] in Fahvk5690-97-69 07:32:00 Test Item Value Reference Range Interpretation Comments cardiac troponin I (test code = cardiac <0.30 0.0-0.5 troponin I) [facility]portCreatine kinase.MB [Mass/volume] in Serum or Plasma 2020-01-15 07:32:00 Test Item Value Reference Range Interpretation Comments Creatine kinase.MB [Mass/volume] 25.1 NG/mL 0.0-3.6 H in Serum or Plasma by Immunoassay (test code = 62357-3) [facility]portComprehensive metabolic 2000 panel - Serum or Plasma [...] Serum or Plasma (test code = 6768-6) [facility]portCreatine kinase [Enzymatic activity/volume] in Serum or Hrxoly4825-90-71 07:32:00 Test Item Value Reference Range Interpretation Comments creatine kinase (test code = creatine 901 U/L 20-180 H kinase) [facility]portNatriuretic peptide.B prohormone N-Terminal [Mass/volume] in Serum or Munzgg2343-45-98 07:32:00 Test Item Value Reference Range Interpretation Comments N-term pro natriuretic peptide (test 91 pg/mL 0-125 code = N-term pro natriuretic peptide) [facility]portTroponin I.cardiac [Mass/volume] in Sfxst4702-63-16 07:32:00 Test Item Value Reference Range Interpretation Comments cardiac troponin I (test code = cardiac <0.30 0.0-0.5 troponin I) [facility]portCreatine kinase.MB [Mass/volume] in Serum or Plasma 2020-01-15 07:32:00 Test Item Value Reference Range Interpretation Comments Creatine kinase.MB [Mass/volume] 25.1 NG/mL 0.0-3.6 H in Serum or Plasma by Immunoassay (test code = 97522-4) [facility] W Auto Differential panel - Ttkwm2929-12-55 07:32:00 Test Item Value Reference Range Interpretation Comments white blood count (test code = 8.5 K/uL 4.0-11.5 white blood count) red blood count (test code = red 1.60 M/uL 3.80-5.20 L blood count) hemoglobin (test code = 5.1 g/dL 10.5-15.7 hemoglobin) hematocrit (test code = 16.9 % 34.0-50.0 hematocrit) MCV [Entitic volume] (test code = 105.6 fL 86-100 H 71849-8) mean corpuscular hemoglobin (test 31.9 pg 26.2-33.4 [...] H leukocytes in Blood (test code = 29218-8) Immature granulocytes [#/volume] 0.0 K/uL 0.0-0.03 H in Blood (test code = 87216-7) lymphocyte% (test code = 11.4 % 10.0-50.0 lymphocyte%) mono % (test code = mono %) 5.4 % 3.6-12.0 eos % (test code = eos %) 0.5 % 0.0-5.4 Basophils/100 leukocytes in 0.1 % 0.1-1.2 Unspecified specimen (test code = 79260-4) Band form neutrophils [#/volume] 6.97 K/uL 1.56-6.13 H in Blood (test code = 23989-1) Lymphocytes [#/volume] in 1.0 K/uL 1.18-3.74 L Unspecified specimen by Automated count (test code = 71025-9) mono # (test code = mono #) 0.46 K/uL 0.24-0.86 eos # (test code = eos #) 0.04 K/uL 0.04-0.36 basophil # (test code = basophil 0.01 K/uL 0.01-0.08 #) NRBC% (test code = NRBC%) 2 /100 WBC 0-0.2 H NRBC# (test code = NRBC#) 0 K/uL [facility]portDifferential panel, method unspecified - [id number] 07:32:00NeutrophilsBandLymphocyteMonocyteEosinophilBasophilPlatelet EstimateDifferential comment-[facility] HospitalComprehensive metabolic 2000 panel - Serum or Kjuatr0988-86-74 07:32:00 Test Item Value Reference Range Interpretation [...] Serum or Plasma (test code = 6768-6) [facility] GroupCreatine kinase [Enzymatic activity/volume] in Serum or Adnien7844-98-79 07:32:00 Test Item Value Reference Range Interpretation Comments creatine kinase (test code = creatine 901 U/L 20-180 H kinase) [facility] GroupNatriuretic peptide.B prohormone N-Terminal [Mass/volume] in Serum or Frwcqx4908-30-77 07:32:00 Test Item Value Reference Range Interpretation Comments N-term pro natriuretic peptide (test 91 pg/mL 0-125 code = N-term pro natriuretic peptide) [facility] GroupTroponin I.cardiac [Mass/volume] in Dwdkw3743-28-95 07:32:00 Test Item Value Reference Range Interpretation Comments cardiac troponin I (test code = cardiac <0.30 0.0-0.5 troponin I) [facility]portCreatine kinase.MB [Mass/volume] in Serum or Plasma 2020-01-15 07:32:00 Test Item Value Reference Range Interpretation Comments Creatine kinase.MB [Mass/volume] 25.1 NG/mL 0.0-3.6 H in Serum or Plasma by Immunoassay (test code = 05106-1) [facility]portUrinalysis complete panel - [id number] 04:45:00 Test Item Value Reference Range Interpretation Comments Color of Urine by Auto (test colorless code = 55102-3) Appearance of Urine (test code clear clear = 5767-9) Glucose [Presence] in Urine by negative negative Automated test strip (test code = 58820-3) Bilirubin.total [Mass/volume] negative negative in Urine (test code = 1978-6) Ketones [Mass/volume] in Urine negative negative by Automated test strip (test code = 56567-8) Specific gravity of Urine by 1.008 1.003-1.030 Automated test strip (test code = 09732-5) blood urine (test code = blood negative negative urine) pH of Urine (test code = 5.500 5-9 2756-5) protein urine (UA) (test code = negative negative protein urine (UA)) Urobilinogen [Presence] in normal 0.2-1.0 Urine (test code = 15711-4) Nitrite [Presence] in Urine by negative negative Test strip (test code = 5802-4) Leukocyte esterase [Presence] negative negative in Urine by Automated test strip (test code = 74176-8) Erythrocytes [#/volume] in <1 0-5 Urine by Automated count (test code = 798-9) Leukocytes [#/area] in Urine <1 0-5 sediment by Automated count (test code = 27844-7) Epithelial cells [Presence] in <1 0-5 Urine sediment by Light microscopy (test code = 74584-4) Bacteria identified in Urine by none detected none detect Culture (test code = 630-4) Casts [#/area] in Urine =2-5 none detect sediment by Automated count (test code = 66672-7) urine culture added? (test code no = urine culture added?) [facility]portUrinalysis complete panel - [id number] 04:45:00 Test Item Value Reference Range Interpretation Comments Color of Urine by Auto (test colorless code = 81173-8) Appearance of Urine (test code clear clear = 5767-9) Glucose [Presence] in Urine by negative negative Automated test strip (test code = 52723-2) Bilirubin.total [Mass/volume] negative negative in Urine (test code = 1978-6) Ketones [Mass/volume] in Urine negative negative by Automated test strip (test code = 60368-2) Specific gravity of Urine by 1.008 1.003-1.030 Automated test strip (test code = 10143-1) blood urine (test code = blood negative negative urine) pH of Urine (test code = 5.500 5-9 2756-5) protein urine (UA) (test code = negative negative protein urine (UA)) Urobilinogen [Presence] in normal 0.2-1.0 Urine (test code = 65265-5) Nitrite [Presence] in Urine by negative negative Test strip (test code = 5802-4) Leukocyte esterase [Presence] negative negative in Urine by Automated test strip (test code = 81079-5) Erythrocytes [#/volume] in <1 0-5 Urine by Automated count (test code = 798-9) Leukocytes [#/area] in Urine <1 0-5 sediment by Automated count (test code = 07753-2) Epithelial cells [Presence] in <1 0-5 Urine sediment by Light microscopy (test code = 72105-2) Bacteria identified in Urine by none detected none detect Culture (test code = 630-4) Casts [#/area] in Urine =2-5 none detect sediment by Automated count (test code = 59186-4) urine culture added? (test code no = urine culture added?) [facility]portUrinalysis complete panel - [id number] 04:45:00 Test Item Value Reference Range Interpretation Comments Color of Urine by Auto (test colorless code = 33783-0) Appearance of Urine (test code clear clear = 5767-9) Glucose [Presence] in Urine by negative negative Automated test strip (test code = 48750-0) Bilirubin.total [Mass/volume] negative negative in Urine (test code = 1978-6) Ketones [Mass/volume] in Urine negative negative by Automated test strip (test code = 25158-0) Specific gravity of Urine by 1.008 1.003-1.030 Automated test strip (test code = 66588-2) blood urine (test code = blood negative negative urine) pH of Urine (test code = 5.500 5-9 2756-5) protein urine (UA) (test code = negative negative protein urine (UA)) Urobilinogen [Presence] in normal 0.2-1.0 Urine (test code = 80484-4) Nitrite [Presence] in Urine by negative negative Test strip (test code = 5802-4) Leukocyte esterase [Presence] negative negative in Urine by Automated test strip (test code = 66096-7) Erythrocytes [#/volume] in <1 0-5 Urine by Automated count (test code = 798-9) Leukocytes [#/area] in Urine <1 0-5 sediment by Automated count (test code = 91206-7) Epithelial cells [Presence] in <1 0-5 Urine sediment by Light microscopy (test code = 56520-7) Bacteria identified in Urine by none detected none detect Culture (test code = 630-4) Casts [#/area] in Urine =2-5 none detect sediment by Automated count (test code = 16641-8) urine culture added? (test code no = urine culture added?) [facility] W Auto Differential panel - Ygejk1626-15-10 09:37:00 Test Item Value Reference Range Interpretation Comments white blood count (test code = 6.7 K/uL 4.0-11.5 white blood count) red blood count (test code = red 2.27 M/uL 3.80-5.20 L blood count) hemoglobin (test code = 7.2 g/dL 10.5-15.7 hemoglobin) hematocrit (test code = 23.1 % 34.0-50.0 hematocrit) MCV [Entitic volume] (test code = 101.8 fL 86-100 H 54921-5) mean corpuscular hemoglobin (test 31.7 pg 26.2-33.4 [...] 44.4-80.1 leukocytes in Blood (test code = 92569-8) Immature granulocytes [#/volume] 0.0 K/uL 0.0-0.03 in Blood (test code = 38178-5) lymphocyte% (test code = 19.0 % 10.0-50.0 lymphocyte%) mono % (test code = mono %) 5.2 % 3.6-12.0 eos % (test code = eos %) 0.4 % 0.0-5.4 Basophils/100 leukocytes in 0.3 % 0.1-1.2 Unspecified specimen (test code = 63464-9) Band form neutrophils [#/volume] 4.98 K/uL 1.56-6.13 in Blood (test code = 49264-2) Lymphocytes [#/volume] in 1.3 K/uL 1.18-3.74 Unspecified specimen by Automated count (test code = 66667-6) mono # (test code = mono #) 0.35 K/uL 0.24-0.86 eos # (test code = eos #) 0.03 K/uL 0.04-0.36 L basophil # (test code = basophil 0.02 K/uL 0.01-0.08 #) NRBC% (test code = NRBC%) 1 /100 WBC 0-0.2 H NRBC# (test code = NRBC#) 0 K/uL [facility] W Auto Differential panel - [id number] 09:37:00 Test Item Value Reference Range Interpretation Comments white blood count (test code = 6.7 K/uL 4.0-11.5 white blood count) red blood count (test code = red 2.27 M/uL 3.80-5.20 L blood count) hemoglobin (test code = 7.2 g/dL 10.5-15.7 hemoglobin) hematocrit (test code = 23.1 % 34.0-50.0 hematocrit) MCV [Entitic volume] (test code = 101.8 fL 86-100 H 66980-2) mean corpuscular hemoglobin (test 31.7 pg 26.2-33.4 [...] 44.4-80.1 leukocytes in Blood (test code = 59781-2) Immature granulocytes [#/volume] 0.0 K/uL 0.0-0.03 in Blood (test code = 57260-3) lymphocyte% (test code = 19.0 % 10.0-50.0 lymphocyte%) mono % (test code = mono %) 5.2 % 3.6-12.0 eos % (test code = eos %) 0.4 % 0.0-5.4 Basophils/100 leukocytes in 0.3 % 0.1-1.2 Unspecified specimen (test code = 46583-6) Band form neutrophils [#/volume] 4.98 K/uL 1.56-6.13 in Blood (test code = 80765-1) Lymphocytes [#/volume] in 1.3 K/uL 1.18-3.74 Unspecified specimen by Automated count (test code = 47677-5) mono # (test code = mono #) 0.35 K/uL 0.24-0.86 eos # (test code = eos #) 0.03 K/uL 0.04-0.36 L basophil # (test code = basophil 0.02 K/uL 0.01-0.08 #) NRBC% (test code = NRBC%) 1 /100 WBC 0-0.2 H NRBC# (test code = NRBC#) 0 K/uL [facility] W Auto Differential panel - [id number] 09:37:00 Test Item Value Reference Range Interpretation Comments white blood count (test code = 6.7 K/uL 4.0-11.5 white blood count) red blood count (test code = red 2.27 M/uL 3.80-5.20 L blood count) hemoglobin (test code = 7.2 g/dL 10.5-15.7 hemoglobin) hematocrit (test code = 23.1 % 34.0-50.0 hematocrit) MCV [Entitic volume] (test code = 101.8 fL 86-100 H 96812-0) mean corpuscular hemoglobin (test 31.7 pg 26.2-33.4 [...] 44.4-80.1 leukocytes in Blood (test code = 65792-2) Immature granulocytes [#/volume] 0.0 K/uL 0.0-0.03 in Blood (test code = 03813-0) lymphocyte% (test code = 19.0 % 10.0-50.0 lymphocyte%) mono % (test code = mono %) 5.2 % 3.6-12.0 eos % (test code = eos %) 0.4 % 0.0-5.4 Basophils/100 leukocytes in 0.3 % 0.1-1.2 Unspecified specimen (test code = 13291-1) Band form neutrophils [#/volume] 4.98 K/uL 1.56-6.13 in Blood (test code = 76758-4) Lymphocytes [#/volume] in 1.3 K/uL 1.18-3.74 Unspecified specimen by Automated count (test code = 25574-3) mono # (test code = mono #) 0.35 K/uL 0.24-0.86 eos # (test code = eos #) 0.03 K/uL 0.04-0.36 L basophil # (test code = basophil 0.02 K/uL 0.01-0.08 #) NRBC% (test code = NRBC%) 1 /100 WBC 0-0.2 H NRBC# (test code = NRBC#) 0 K/[facility]L [facility] [Enzymatic activity/volume] in Serum or [id number] 05:20:00 Test Item Value Reference Range Interpretation Comments creatine kinase (test code = creatine 189 U/L 20-180 H kinase) [facility]portTroponin I.cardiac [Mass/volume] in [id number] 05:20:00 Test Item Value Reference Range Interpretation Comments cardiac troponin I (test code = cardiac <0.30 0.0-0.5 troponin I) [facility] kinase.MB [Mass/volume] in Serum or Plasma 2019-06-26 05:20:00 Test Item Value Reference Range Interpretation Comments mass creatinine kinase-mb (test 2.6 NG/mL 0.0-3.6 code = mass creatinine kinase-mb) [facility] W Auto Differential panel - [id number] 02:50:00 Test Item Value Reference Range Interpretation Comments white blood count (test code = 4.8 K/uL 4.0-11.5 white blood count) red blood count (test code = red 3.44 M/uL 3.80-5.20 L blood count) hemoglobin (test code = 11.0 g/dL 10.5-15.7 hemoglobin) hematocrit (test code = 34.4 % 34.0-50.0 hematocrit) Erythrocyte mean corpuscular 100.0 fL 86-100 volume [Entitic volume] (test code = 69059-9) mean corpuscular hemoglobin (test 32.0 pg 26.2-33.4 [...] 44.4-80.1 leukocytes in Blood (test code = 41138-6) Granulocytes Immature [#/volume] 0.0 K/uL 0.0-0.03 in Blood (test code = 07891-0) lymphocyte% (test code = 19.7 % 10.0-50.0 lymphocyte%) mono % (test code = mono %) 9.5 % 3.6-12.0 eos % (test code = eos %) 1.7 % 0.0-5.4 Basophils/100 leukocytes in 0.2 % 0.1-1.2 Unspecified specimen (test code = 06553-5) Neutrophils.band form [#/volume] 3.32 K/uL 1.56-6.13 in Blood (test code = 28250-9) Lymphocytes [#/volume] in 1.0 K/uL 1.18-3.74 L Unspecified specimen by Automated count (test code = 53863-7) mono # (test code = mono #) 0.46 K/uL 0.24-0.86 eos # (test code = eos #) 0.08 K/uL 0.04-0.36 basophil # (test code = basophil 0.01 K/uL 0.01-0.08 #) NRBC% (test code = NRBC%) 0 /100 WBC 0-0.2 NRBC# (test code = NRBC#) 0 K/uL [facility], [id number] 02:50:00 NeutrophilsBandLymphocyteAtypical LymphMonocyteEosinophilBasophilMetamyelocytePlatelet EstimatePlatelet MorphologyHypochromasiaAnisocytosisMacrocytosisToxic GranulationToxic VacuolationSinging River GulfportPT/[id number] 02:50:00 Test Item Value Reference Range Interpretation Comments prothrombin time (test code = 9.5 seconds 10.3-12.3 L prothrombin time) INR in Blood by Coagulation assay 0.90 (test code = 87780-0) [facility]in [id number] 02:50:00 Test Item Value Reference Range Interpretation Comments INR in Blood by Coagulation 24.8 seconds 22.5-37.0 assay (test code = 46187-2) [facility]portCom[facility] metabolic 2000 panel - Serum or Plasma [...] Serum or Plasma (test code = 6768-6) [facility]portCreatine kinase [Enzymatic activity/volume] in Serum or [id number] 02:50:00 Test Item Value Reference Range Interpretation Comments creatine kinase (test code = creatine 187 U/L 20-180 H kinase) [facility]portNatriuretic peptide.B prohormone N-Terminal [Mass/volume] in Serum or [id number] 02:50:00 Test Item Value Reference Range Interpretation Comments N-term pro natriuretic peptide 171 pg/mL 0-125 H (test code = N-term pro natriuretic peptide) [facility]portTroponin I.cardiac [Mass/volume] in [id number] 02:50:00 Test Item Value Reference Range Interpretation Comments cardiac troponin I (test code = cardiac <0.30 0.0-0.5 troponin I) [facility]Creat[facility] kinase.MB [Mass/volume] in Serum or Plasma 2019-06-26 02:50:00 Test Item Value Reference Range Interpretation Comments mass creatinine kinase-mb (test 2.6 NG/mL 0.0-3.6 code = mass creatinine kinase-mb) [facility] W Auto Differential panel - [id number] 02:50:00 Test Item Value Reference Range Interpretation Comments white blood count (test code = 4.8 K/uL 4.0-11.5 white blood count) red blood count (test code = red 3.44 M/uL 3.80-5.20 L blood count) hemoglobin (test code = 11.0 g/dL 10.5-15.7 hemoglobin) hematocrit (test code = 34.4 % 34.0-50.0 hematocrit) Erythrocyte mean corpuscular 100.0 fL 86-100 volume [Entitic volume] (test code = 58470-3) mean corpuscular hemoglobin (test 32.0 pg 26.2-33.4 [...] 44.4-80.1 leukocytes in Blood (test code = 30421-4) Granulocytes Immature [#/volume] 0.0 K/uL 0.0-0.03 in Blood (test code = 92229-3) lymphocyte% (test code = 19.7 % 10.0-50.0 lymphocyte%) mono % (test code = mono %) 9.5 % 3.6-12.0 eos % (test code = eos %) 1.7 % 0.0-5.4 Basophils/100 leukocytes in 0.2 % 0.1-1.2 Unspecified specimen (test code = 81281-5) Neutrophils.band form [#/volume] 3.32 K/uL 1.56-6.13 in Blood (test code = 11614-0) Lymphocytes [#/volume] in 1.0 K/uL 1.18-3.74 L Unspecified specimen by Automated count (test code = 54927-7) mono # (test code = mono #) 0.46 K/uL 0.24-0.86 eos # (test code = eos #) 0.08 K/uL 0.04-0.36 basophil # (test code = basophil 0.01 K/uL 0.01-0.08 #) NRBC% (test code = NRBC%) 0 /100 WBC 0-0.2 NRBC# (test code = NRBC#) 0 K/uL [facility], [id number] 02:50:00 NeutrophilsBandLymphocyteAtypical LymphMonocyteEosinophilBasophilMetamyelocytePlatelet EstimatePlatelet MorphologyHypochromasiaAnisocytosisMacrocytosisToxic GranulationToxic VacuolationMaMerit Health River OaksPT/[id number] 02:50:00 Test Item Value Reference Range Interpretation Comments prothrombin time (test code = 9.5 seconds 10.3-12.3 L prothrombin time) INR in Blood by Coagulation assay 0.90 (test code = 52293-7) [facility]in [id number] 02:50:00 Test Item Value Reference Range Interpretation Comments INR in Blood by Coagulation 24.8 seconds 22.5-37.0 assay (test code = 26802-1) [facility]portComprehensive metabolic 2000 panel - Serum or Plasma [...] Serum or Plasma (test code = 6768-6) [facility]portCreatine kinase [Enzymatic activity/volume] in Serum or [id number] 02:50:00 Test Item Value Reference Range Interpretation Comments creatine kinase (test code = creatine 187 U/L 20-180 H kinase) [facility]portNatriuretic peptide.B prohormone N-Terminal [Mass/volume] in Serum or [id number] 02:50:00 Test Item Value Reference Range Interpretation Comments N-term pro natriuretic peptide 171 pg/mL 0-125 H (test code = N-term pro natriuretic peptide) [facility]portTroponin I.cardiac [Mass/volume] in [id number] 02:50:00 Test Item Value Reference Range Interpretation Comments cardiac troponin I (test code = cardiac <0.30 0.0-0.5 troponin I) [facility]portCreatine kinase.MB [Mass/volume] in Serum or Plasma 2019-06-26 02:50:00 Test Item Value Reference Range Interpretation Comments mass creatinine kinase-mb (test 2.6 NG/mL 0.0-3.6 code = mass creatinine kinase-mb) [facility] W Auto Differential panel - [id number] 12:30:00 Test Item Value Reference Range Interpretation Comments white blood count (test code = 5.8 K/uL 4.0-11.5 white blood count) red blood count (test code = red 3.64 M/uL 3.80-5.20 L blood count) hemoglobin (test code = 11.6 g/dL 10.5-15.7 hemoglobin) hematocrit (test code = 36.9 % 34.0-50.0 hematocrit) Erythrocyte mean corpuscular 101.4 fL 86-100 H volume [Entitic volume] (test code = 10711-2) mean corpuscular hemoglobin (test 31.9 pg 26.2-33.4 [...] 44.4-80.1 leukocytes in Blood (test code = 19223-1) Granulocytes Immature [#/volume] 0.0 K/uL 0.0-0.03 in Blood (test code = 08750-2) lymphocyte% (test code = 20.2 % 10.0-50.0 lymphocyte%) mono % (test code = mono %) 9.8 % 3.6-12.0 eos % (test code = eos %) 0.9 % 0.0-5.4 Basophils/100 leukocytes in 0.2 % 0.1-1.2 Unspecified specimen (test code = 15271-3) Neutrophils.band form [#/volume] 4.00 K/uL 1.56-6.13 in Blood (test code = 03939-4) Lymphocytes [#/volume] in 1.2 K/uL 1.18-3.74 Unspecified specimen by Automated count (test code = 18465-3) mono # (test code = mono #) 0.57 K/uL 0.24-0.86 eos # (test code = eos #) 0.05 K/uL 0.04-0.36 basophil # (test code = basophil 0.01 K/uL 0.01-0.08 #) NRBC% (test code = NRBC%) 0 /100 WBC 0-0.2 NRBC# (test code = NRBC#) 0 K/uL [facility], [id number] 12:30:00 NeutrophilsBandLymphocyteAtypical LymphMonocyteEosinophilBasophilPlatelet EstimatePlatelet MorphologyMacrocytosisSinging River GulfportBasic metabolic 2000 panel - Serum or [id number] 12:30:00 Test Item Value Reference Range Interpretation [...] = calcium 8.5 mg/dL 8.8-10.2 L level) [facility] W Auto Differential panel - [id number] 12:30:00 Test Item Value Reference Range Interpretation Comments white blood count (test code = 5.8 K/uL 4.0-11.5 white blood count) red blood count (test code = red 3.64 M/uL 3.80-5.20 L blood count) hemoglobin (test code = 11.6 g/dL 10.5-15.7 hemoglobin) hematocrit (test code = 36.9 % 34.0-50.0 hematocrit) Erythrocyte mean corpuscular 101.4 fL 86-100 H volume [Entitic volume] (test code = 83518-2) mean corpuscular hemoglobin (test 31.9 pg 26.2-33.4 [...] 44.4-80.1 leukocytes in Blood (test code = 26773-5) Granulocytes Immature [#/volume] 0.0 K/uL 0.0-0.03 in Blood (test code = 53759-1) lymphocyte% (test code = 20.2 % 10.0-50.0 lymphocyte%) mono % (test code = mono %) 9.8 % 3.6-12.0 eos % (test code = eos %) 0.9 % 0.0-5.4 Basophils/100 leukocytes in 0.2 % 0.1-1.2 Unspecified specimen (test code = 14895-2) Neutrophils.band form [#/volume] 4.00 K/uL 1.56-6.13 in Blood (test code = 67006-4) Lymphocytes [#/volume] in 1.2 K/uL 1.18-3.74 Unspecified specimen by Automated count (test code = 83115-1) mono # (test code = mono #) 0.57 K/uL 0.24-0.86 eos # (test code = eos #) 0.05 K/uL 0.04-0.36 basophil # (test code = basophil 0.01 K/uL 0.01-0.08 #) NRBC% (test code = NRBC%) 0 /100 WBC 0-0.2 NRBC# (test code = NRBC#) 0 K/uL [facility]different[facility], [id number] 12:30:00 NeutrophilsBandLymphocyteAtypical LymphMonocyteEosinophilBasophilPlatelet EstimatePlatelet MorphologyMacrocytosisSinging River GulfportBasic metabolic 2000 panel - Serum or [id number] 12:30:00 Test Item Value Reference Range Interpretation [...] = calcium 8.5 mg/dL 8.8-10.2 L level) [facility]portUrinalysis complete panel - [id number] 11:54:00 Test Item Value Reference Range Interpretation Comments Color of Urine by Auto light yellow (test code = 79882-9) Appearance of Urine (test clear clear code = 5767-9) Glucose [Presence] in negative negative Urine by Automated test strip (test code = 25473-3) Bilirubin.total negative negative [Mass/volume] in Urine (test code = 1978-6) Ketones [Mass/volume] in negative negative Urine by Automated test strip (test code = 92607-1) Specific gravity of Urine 1.025 1.003-1.030 by Automated test strip (test code = 06754-2) blood urine (test code = negative negative blood urine) pH of Urine (test code = 6.500 5-9 2756-5) protein urine (UA) (test negative negative code = protein urine (UA)) Urobilinogen [Presence] normal 0.2-1.0 in Urine (test code = 41021-2) Nitrite [Presence] in negative negative Urine by Test strip (test code = 5802-4) Leukocyte esterase negative negative [Presence] in Urine by Automated test strip (test code = 05784-9) Erythrocytes [#/volume] <1 0-5 in Urine by Automated count (test code = 798-9) Leukocytes [#/area] in <1 0-5 Urine sediment by Automated count (test code = 86939-2) Epithelial cells <1 0-5 [Presence] in Urine sediment by Light microscopy (test code = 08703-4) Bacteria identified in none detected none detect Urine by Culture (test code = 630-4) Casts [#/area] in Urine =11-14 none detect H sediment by Automated count (test code = 07954-0) urine culture added? no (test code = urine culture added?) path casts,U (test code = cellular casts (1-5 none detect A path casts,U) [facility]port[facility] complete panel - [id number] 11:54:00 Test Item Value Reference Range Interpretation Comments Color of Urine by Auto light yellow (test code = 68381-9) Appearance of Urine (test clear clear code = 5767-9) Glucose [Presence] in negative negative Urine by Automated test strip (test code = 22117-0) Bilirubin.total negative negative [Mass/volume] in Urine (test code = 1978-6) Ketones [Mass/volume] in negative negative Urine by Automated test strip (test code = 61895-8) Specific gravity of Urine 1.025 1.003-1.030 by Automated test strip (test code = 08617-8) blood urine (test code = negative negative blood urine) pH of Urine (test code = 6.500 5-9 2756-5) protein urine (UA) (test negative negative code = protein urine (UA)) Urobilinogen [Presence] normal 0.2-1.0 in Urine (test code = 59069-1) Nitrite [Presence] in negative negative Urine by Test strip (test code = 5802-4) Leukocyte esterase negative negative [Presence] in Urine by Automated test strip (test code = 40990-2) Erythrocytes [#/volume] <1 0-5 in Urine by Automated count (test code = 798-9) Leukocytes [#/area] in <1 0-5 Urine sediment by Automated count (test code = 12299-5) Epithelial cells <1 0-5 [Presence] in Urine sediment by Light microscopy (test code = 93225-9) Bacteria identified in none detected none detect Urine by Culture (test code = 630-4) Casts [#/area] in Urine =11-14 none detect H sediment by Automated count (test code = 35920-5) urine culture added? no (test code = urine culture added?) path casts,U (test code = cellular casts (1-5 none detect A path casts,U) [facility] W Auto Differential panel - [id number] 09:30:00 Test Item Value Reference Range Interpretation Comments white blood count (test code = 5.6 K/uL 4.0-11.5 white blood count) red blood count (test code = red 3.98 M/uL 3.80-5.20 blood count) hemoglobin (test code = 12.7 g/dL 10.5-15.7 hemoglobin) hematocrit (test code = 39.8 % 34.0-50.0 hematocrit) Erythrocyte mean corpuscular 100.0 fL 86-100 volume [Entitic volume] (test code = 77000-2) mean corpuscular hemoglobin (test 31.9 pg 26.2-33.4 [...] 44.4-80.1 leukocytes in Blood (test code = 10101-1) Granulocytes Immature [#/volume] 0.0 K/uL 0.0-0.03 in Blood (test code = 29495-8) lymphocyte% (test code = 15.1 % 10.0-50.0 lymphocyte%) mono % (test code = mono %) 6.8 % 3.6-12.0 eos % (test code = eos %) 0.7 % 0.0-5.4 Basophils/100 leukocytes in 0.4 % 0.1-1.2 Unspecified specimen (test code = 80378-9) Neutrophils.band form [#/volume] 4.29 K/uL 1.56-6.13 in Blood (test code = 32510-6) Lymphocytes [#/volume] in 0.8 K/uL 1.18-3.74 L Unspecified specimen by Automated count (test code = 79393-0) mono # (test code = mono #) 0.38 K/uL 0.24-0.86 eos # (test code = eos #) 0.04 K/uL 0.04-0.36 basophil # (test code = basophil 0.02 K/uL 0.01-0.08 #) NRBC% (test code = NRBC%) 0 /100 WBC 0-0.2 NRBC# (test code = NRBC#) 0 K/uL [facility], [id number] 09:30:00 NeutrophilsBandLymphocyteAtypical LymphMonocyteEosinophilPlatelet EstimatePlatelet MorphologyMacrocytosisSinging River GulfportPT/[id number] 09:30:00 Test Item Value Reference Range Interpretation Comments prothrombin time (test code = 10.5 seconds 10.3-12.3 prothrombin time) INR in Blood by Coagulation 0.95 assay (test code = 79845-5) [facility]partial thromboplastin [id number] 09:30:00 Test Item Value Reference Range Interpretation Comments INR in Blood by Coagulation 23.4 seconds 22.5-37.0 assay (test code = 11494-2) [facility]portComprehensive metabolic 2000 panel - Serum or Plasma [...] Serum or Plasma (test code = 6768-6) [facility] GroupMagnesium [Moles/volume] in Unspecified specimen 2019-06-03 09:30:00 Test Item Value Reference Range Interpretation Comments magnesium level (test code = 1.8 mg/dL 1.6-2.4 magnesium level) [facility] GroupEthanol [Mass/volume] in Serum or [id number] 09:30:00 Test Item Value Reference Range Interpretation Comments alcohol level (test code = alcohol <10.1 0.00-10.1 level) [facility] GroupCreatine kinase [Enzymatic activity/volume] in Serum or [id number] 09:30:00 Test Item Value Reference Range Interpretation Comments creatine kinase (test code = creatine 150 U/L 20-180 kinase) [facility]portNatriuretic peptide.B prohormone N-Terminal [Mass/volume] in Serum or [id number] 09:30:00 Test Item Value Reference Range Interpretation Comments N-term pro natriuretic peptide 200 pg/mL 0-125 H (test code = N-term pro natriuretic peptide) [facility]portTroponin I.cardiac [Mass/volume] in [id number] 09:30:00 Test Item Value Reference Range Interpretation Comments cardiac troponin I (test code = cardiac <0.30 0.0-0.5 troponin I) [facility]portCreatine kinase.MB [Mass/volume] in Serum or Plasma 2019-06-03 09:30:00 Test Item Value Reference Range Interpretation Comments mass creatinine kinase-mb (test 2.3 NG/mL 0.0-3.6 code = mass creatinine kinase-mb) [facility] GroupMyoglobin [Mass/volume] in Serum or [id number] 09:30:00 Test Item Value Reference Range Interpretation Comments myoglobin (test code = myoglobin) 37 NG/mL 25-58 [facility] W Auto Differential panel - [id number] 09:30:00 Test Item Value Reference Range Interpretation Comments white blood count (test code = 5.6 K/uL 4.0-11.5 white blood count) red blood count (test code = red 3.98 M/uL 3.80-5.20 blood count) hemoglobin (test code = 12.7 g/dL 10.5-15.7 hemoglobin) hematocrit (test code = 39.8 % 34.0-50.0 hematocrit) Erythrocyte mean corpuscular 100.0 fL 86-100 volume [Entitic volume] (test code = 16833-4) mean corpuscular hemoglobin (test 31.9 pg 26.2-33.4 [...] 44.4-80.1 leukocytes in Blood (test code = 41444-7) Granulocytes Immature [#/volume] 0.0 K/uL 0.0-0.03 in Blood (test code = 72732-3) lymphocyte% (test code = 15.1 % 10.0-50.0 lymphocyte%) mono % (test code = mono %) 6.8 % 3.6-12.0 eos % (test code = eos %) 0.7 % 0.0-5.4 Basophils/100 leukocytes in 0.4 % 0.1-1.2 Unspecified specimen (test code = 97591-3) Neutrophils.band form [#/volume] 4.29 K/uL 1.56-6.13 in Blood (test code = 70681-9) Lymphocytes [#/volume] in 0.8 K/uL 1.18-3.74 L Unspecified specimen by Automated count (test code = 35313-7) mono # (test code = mono #) 0.38 K/uL 0.24-0.86 eos # (test code = eos #) 0.04 K/uL 0.04-0.36 basophil # (test code = basophil 0.02 K/uL 0.01-0.08 #) NRBC% (test code = NRBC%) 0 /100 WBC 0-0.2 NRBC# (test code = NRBC#) 0 K/uL [facility]different[facility], [id number] 09:30:00 NeutrophilsBandLymphocyteAtypical LymphMonocyteEosinophilPlatelet EstimatePlatelet MorphologyMacrocytosisMaMerit Health River OaksPT/[id number] 09:30:00 Test Item Value Reference Range Interpretation Comments prothrombin time (test code = 10.5 seconds 10.3-12.3 prothrombin time) INR in Blood by Coagulation 0.95 assay (test code = 14980-5) [facility]portpartial thromboplastin [id number] 09:30:00 Test Item Value Reference Range Interpretation Comments INR in Blood by Coagulation 23.4 seconds 22.5-37.0 assay (test code = 47404-4) [facility]portComprehensive metabolic 2000 panel - Serum or Plasma [...] Serum or Plasma (test code = 6768-6) [facility]Magn[facility] [Moles/volume] in Unspecified specimen 2019-06-03 09:30:00 Test Item Value Reference Range Interpretation Comments magnesium level (test code = 1.8 mg/dL 1.6-2.4 magnesium level) [facility] GroupEthanol [Mass/volume] in Serum or [id number] 09:30:00 Test Item Value Reference Range Interpretation Comments alcohol level (test code = alcohol <10.1 0.00-10.1 level) [facility] GroupCreatine kinase [Enzymatic activity/volume] in Serum or [id number] 09:30:00 Test Item Value Reference Range Interpretation Comments creatine kinase (test code = creatine 150 U/L 20-180 kinase) [facility] GroupNatriuretic peptide.B prohormone N-Terminal [Mass/volume] in Serum or [id number] 09:30:00 Test Item Value Reference Range Interpretation Comments N-term pro natriuretic peptide 200 pg/mL 0-125 H (test code = N-term pro natriuretic peptide) [facility] GroupTroponin I.cardiac [Mass/volume] in [id number] 09:30:00 Test Item Value Reference Range Interpretation Comments cardiac troponin I (test code = cardiac <0.30 0.0-0.5 troponin I) [facility]portCreatine kinase.MB [Mass/volume] in Serum or Plasma 2019-06-03 09:30:00 Test Item Value Reference Range Interpretation Comments mass creatinine kinase-mb (test 2.3 NG/mL 0.0-3.6 code = mass creatinine kinase-mb) [facility]portMyoglobin [Mass/volume] in Serum or [id number] 09:30:00 Test Item Value Reference Range Interpretation Comments myoglobin (test code = myoglobin) 37 NG/mL [facility]portUrinalysis complete panel - [id number] 05:40:00 Test Item Value Reference Range Interpretation Comments Color of Urine by Auto yellow (test code = 56419-4) Appearance of Urine (test SL cloudy clear A code = 5767-9) Glucose [Presence] in Urine negative negative by Automated test strip (test code = 01257-0) Bilirubin.total negative negative [Mass/volume] in Urine (test code = 1978-6) Ketones [Mass/volume] in =1 negative H Urine by Automated test strip (test code = 34505-0) Specific gravity of Urine 1.022 1.003-1.030 by Automated test strip (test code = 90954-7) blood urine (test code = trace negative blood urine) pH of Urine (test code = 7.000 5-9 2756-5) protein urine (UA) (test =1+ (30 negative H code = protein urine (UA)) Urobilinogen [Presence] in =2.0 0.2-1.0 H Urine (test code = 85250-6) Nitrite [Presence] in Urine positive negative H by Test strip (test code = 5802-4) Leukocyte esterase =4 negative H [Presence] in Urine by Automated test strip (test code = 14438-5) Erythrocytes [#/volume] in =6-10 0-5 H Urine by Automated count (test code = 798-9) Leukocytes [#/area] in =11-14 0-5 H Urine sediment by Automated count (test code = 67997-9) Epithelial cells [Presence] =11-25 0-5 H in Urine sediment by Light microscopy (test code = 28028-6) Bacteria identified in trace none detect Urine by Culture (test code = 630-4) Casts [#/area] in Urine =2-5 none detect sediment by Automated count (test code = 37245-1) urine culture added? (test no. contaminated. code = urine culture added?) [facility]portBacteria identified in Urine by [id number] 05:40:00Bacteria Ur CultSinging River [id number] 05:17:00 Test Item Value Reference Range Interpretation Comments prothrombin time (test code = 9.9 seconds 10.3-12.3 L prothrombin time) INR in Blood by Coagulation assay 0.94 (test code = 93729-6) [facility] thromboplastin [id number] 05:17:00 Test Item Value Reference Range Interpretation Comments INR in Blood by Coagulation 24.3 seconds 22.5-37.0 assay (test code = 19818-4) [facility] W Auto Differential panel - [id number] 05:17:00 Test Item Value Reference Range Interpretation Comments white blood count (test 5.6 K/uL 4.0-11.5 code = white blood count) red blood count (test 4.89 M/uL 3.80-5.20 code = red blood count) Hemoglobin [Mass/volume] 15.0 g/dL 10.5-15.7 in Blood (test code = 718-7) hematocrit (test code = 47.9 % 34.0-50.0 hematocrit) Erythrocyte mean 97.9 fL 78-98 corpuscular volume [Entitic volume] (test code = 48292-2) Erythrocyte mean 30.6 pg 26.2-33.4 corpuscular hemoglobin [Entitic mass] (test code = 58883-2) mean corpuscular HGB 31.3 g/dL 31.5-36.2 L conc (test code = mean corpuscular HGB conc) red cell distribution 13.3 % 11.5-15.5 width (test code = red cell distribution width) Platelets [#/volume] in 283 K/uL 137-338 Blood (test code = 46279-7) Platelet mean volume 6.8 fL 8.4-11.8 L [Entitic volume] in Blood (test code = 53852-7) Neutrophils.band 68.6 % 44.4-80.1 form/100 leukocytes in Blood (test code = 57269-3) Lymphocytes/100 20.7 % 10.0-50.0 leukocytes in Body fluid (test code = 00905-1) Monocytes/100 leukocytes 9.2 % 3.6-12.04 in Blood by Automated count (test code = 5905-5) Eosinophils/100 0.4 % 0.0-5.41 leukocytes in Blood by Automated count (test code = 713-8) Basophils/100 leukocytes 1.1 % 0.0-0.79 H in Blood by Automated count (test code = 706-2) Platelet morphology hypersegmented polys normal RBC. finding [Identifier] in Blood (test code = 50647-4) [facility]portdifferential panel, [id number] 05:17:00 NeutrophilsBandLymphocyteAtypical LymphMonocyteEosinophilBasophilMyelocytePlatelet EstimatePlatelet M orphologyHypersegmented PolysToxic VacuolationSmudge CellsSinging River GulfportComprehensive metabolic 2000 panel - Serum or [id number] 05:17:00 Test Item Value Reference Range Interpretation [...] Serum or Plasma (test code = 6768-6) [facility]portCreatine kinase [Enzymatic activity/volume] in Serum or [id number] 05:17:00 Test Item Value Reference Range Interpretation Comments creatine kinase (test code = creatine 246 U/L 20-180 H kinase) [facility]portTroponin I.cardiac [Mass/volume] in [id number] 05:17:00 Test Item Value Reference Range Interpretation Comments cardiac troponin I (test code = cardiac <0.30 0.0-0.5 troponin I) [facility]portCreatine kinase.MB [Mass/volume] in Serum or Plasma 2018-10-09 05:17:00 Test Item Value Reference Range Interpretation Comments mass creatinine kinase-mb (test 3.9 NG/mL 0.0-3.6 H code = mass creatinine kinase-mb) [facility]
[2021-04-05 12:04] LABS: Urine Blood Negative (Negative); Urine Glucose Negative (Negative); Urine Protein Negative (Negative)
[2021-04-05 12:07] LABS: BUN Blood Urea Nitrogen 12 mg/dL (7-18); Bicarbonate 26 mmol/L (21-32); Glucose Level 88 mg/dL (74-106); Potassium 4.3 mmol/L (3.5-5.1); Sodium Level 142 mmol/L (136-145)
[2021-04-05 12:08] LABS: Absolute Lymphocytes (CBC) 1.2 K/uL (0.7-4.9); Basophils % 0.5 % (0-1.3); Hematocrit 29.9 % (36.0-45.0); Lymphocytes % 23.1 % (15.3-44.8); MPV 7.4 fL (7.6-11.3); RBC Red Blood Cell Count 3.79 M/uL (3.86-4.86)
--- NOTE | 2021-04-05 12:14 | RAD REPORT ---
EXAM DESCRIPTION: RAD - Chest Single View - 04/05/2021 11:22 am CLINICAL HISTORY: FEVER Chest pain. COMPARISON: Chest Single View dated 01/01/2021 FINDINGS: Portable technique limits examination quality. Mild bilateral interstitial lung opacities are present probably representing bronchitis or a viral in fection. The heart is upper limit normal in size. No displaced fractures.
[2021-04-05 12:24] LABS: Urine Bacteria NONE SEEN /HPF (<20); Urine RBC NONE SEEN /HPF (NONE SEEN)
--- NOTE | 2021-04-05 13:51 | ER ---
Nurse's Notes [facility] Name: Kyler Rushing Age: 75 yrs Sex: Female : 1945 Arrival Date: 04/05/2021 Time: 10:35 Bed 25 Private MD: Diagnosis: Palpitations Presentation: 04/05 10:35 Chief complaint: EMS states: pt from home, c/o heart beating like a "sledgehammer in tw2 her chest". also c/o pain with urination and you can smell foul urine smell on her. Chief complaint:. Coronavirus screen: At this time, the client does not indicate any symptoms associated with coronavirus-19. Ebola Screen: Patient denies travel to an Ebola-affected area in the 21 days before illness onset. Initial Sepsis Screen: Does the patient meet any 2 criteria? No. Patient's initial sepsis screen is negative. Does the patient have a suspected source of infection? Yes: Dysuria/Frequency/Urgency/UTI. Risk Assessment: Do you want to hurt yourself or someone else? Patient reports no desire to harm self or others. Note provider at bedside at this time. Onset of symptoms was April 05, 2021. Care prior to arrival: IV initiated. 22 GA, in the left antecubital area. 10:35 Method Of Arrival: EMS: [facility] tw2 10:35 Acuity: TOVA 3 tw2 Triage Assessment: 10:35 General: Appears in no apparent distress. obese, unkempt, Behavior is calm, tw2 cooperative, appropriate for age. Pain: Denies pain. EENT: No signs and/or symptoms were reported regarding the EENT system. Neuro: Level of Consciousness is awake, alert, obeys commands, Oriented to person, which is pts baseline. Cardiovascular: Patient's skin is warm and dry. Respiratory: Airway is patent Respiratory effort is even, unlabored, Respiratory pattern is regular, symmetrical. GI: No signs and/or symptoms were reported involving the gastrointestinal system. : Reports burning with urination. Derm: No signs and/or symptoms reported regarding the dermatologic system. Skin is fragile, is thin, with poor turgor Skin is dry. 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 Historical: - Allergies: 10:45 No Known Allergies; tw2 - Home Meds: 10:45 Plavix 75 mg Oral tab 1 tab once daily [Active]; metformin 500 mg Oral Tb24 1 tab once tw2 daily [Active]; levothyroxine 200 mcg tab 1 tab once daily [Active]; isosorbide mononitrate 30 mg Oral Tb24 1 tab once daily [Active]; atorvastatin 40 mg Oral tab 1 tab nightly [Active]; esomeprazole magnesium 40 mg Oral cpDR 1 cap once daily [Active]; - PMHx: 10:45 Diabetes - IDDM; High Cholesterol; Hypertension; cva; left sided weakness; tw2 - Immunization history:: Adult Immunizations. - Social history:: Smoking status: . - Family history:: not pertinent. - Hospitalizations: : No recent hospitalization is reported. Screenin:47 Abuse screen: Denies threats or abuse. Nutritional screening: No deficits noted. tw2 Tuberculosis screening: No symptoms or risk factors identified. Fall Risk Secondary diagnosis (15 points) impaired mobility, CVA. Assessment: 11:12 Reassessment: see triage assessment. tw2 11:12 Reassessment: xray at bedside at this time. tw2 12:05 Reassessment: Patient appears in no apparent distress at this time. Patient and/or tw2 family updated on plan of care and expected duration. Pain level reassessed. pt in a foul smelling saturated brief. states c/g "Maira" takes care of her while her daughters is a work. 13:02 Reassessment: Patient appears in no apparent distress at this time. Patient and/or tw2 family updated on plan of care and expected duration. Pain level reassessed. pt states "i think i wet my brief again", pt cleaned and changed, Emery Farrell assisting. 13:04 Reassessment: pts daughter "John" ph# [phone]. tw2 13:58 Reassessment: Patient appears in no apparent distress at this time. Patient and/or tw2 family updated on plan of care and expected duration. Pain level reassessed. 14:21 Reassessment: Patient appears in no apparent distress at this time. Patient and/or tw2 family updated on plan of care and expected duration. Pain level reassessed. Vital Signs: 10:35 BP 136 / 66; Pulse 81; Resp 17; tw2 10:46 Temp 98.5(O); tw2 12:02 BP 109 / 56; Pulse 47; Resp 15; Pulse Ox 99% on R/A; tw2 13:05 BP 138 / 80; Pulse 95; Resp 19; Pulse Ox 95% on R/A; tw2 13:58 BP 132 / 94; Pulse 85; Resp 17; Pulse Ox 96% on R/A; tw2 ED Course: 10:35 Patient arrived in ED. tw2 10:35 Bed in low position. Call light in reach. Side rails up X2. Pulse ox on. NIBP on. tw2 10:37 Josafat Haas MD is Attending Physician. rn 10:44 Triage completed. tw2 10:44 Arm band placed on. tw2 10:49 Rosanne De Oliveira RN is Primary Nurse. tw2 11:10 Missed attempt(s): 22 gauge in right forearm. Bleeding controlled, band aid applied, tw2 catheter tip intact. 11:19 EKG done, by ED staff, reviewed by Josafat Haas MD. mb4 11:22 XRAY Chest (1 view) In Process Unspecified. EDMS 11:43 Lactate Sent. tw2 12:01 Straight cath inserted, using sterile technique, 18 Fr. Specimen obtained. Emery Woodall tw2 served as sack keeper. 13:57 Awaiting transportation. tw2 14:21 No provider procedures requiring assistance completed. IV discontinued, intact, tw2 bleeding controlled, No redness/swelling at site. Pressure dressing applied. Administered Medications: No medications were administered Outcome: 13:50 Discharge ordered by . rn 14:21 Discharged to home via ambulance. tw2 14:21 Condition: stable 14:21 Discharge instructions given to patient, Instructed on discharge instructions, follow up and referral plans. Demonstrated understanding of instructions, follow-up care. 14:21 Patient left the ED. tw2 Signatures: Dispatcher [employer] EDMS Josafat Haas MD MD rn Wise, Tara, RN RN tw2 Twila Hernández mb4 Corrections: (The following items were deleted from the chart) 10:46 10:35 Initial Sepsis Screen: Does the patient meet any 2 criteria? Temp <36.0*C tw2 (96.8*F)) or > 38.3*C (100.9*F). No. Patient's initial sepsis screen is negative. Does the patient have a suspected source of infection? Yes: Dysuria/Frequency/Urgency/UTI tw2 : 13:02 Reassessment: Patient appears in no apparent distress at this time. Patient tw2 and/or family updated on plan of care and expected duration. Pain level reassessed. tw2 : 11:30 Reassessment: Patient appears in no apparent distress at this time. Patient tw2 and/or family updated on plan of care and expected duration. Pain level reassessed. pt states "i think i wet my brief again", pt cleaned and changed, Emery Farrell assisting. tw2 13: 12:02 Reassessment: Patient appears in no apparent distress at this time. Patient tw2 and/or family updated on plan of care and expected duration. Pain level reassessed. tw2
--- NOTE | 2021-04-05 13:51 | EDPHYS ---
Physician Documentation [facility] Name: Kyler Rushing Age: 75 yrs Sex: Female : 1945 Arrival Date: 04/05/2021 Time: 10:35 Bed 25 Private MD: ED Physician Josafat Haas HPI: 04/05 10:48 This 75 yrs old Black Female presents to ER via EMS with complaints of Palpitations. rn 10:48 The patient presents with a history of heart racing. Context: The symptoms occur at rn rest. Onset: The symptoms/episode began/occurred this morning. Duration: The patient or guardian reports multiple episodes, that are intermittent. Modifying factors: The symptoms are aggravated by nothing. The symptoms are alleviated by nothing. Associated signs and symptoms: Pertinent negatives: SOB, syncope, vomiting. Severity of symptoms: At their worst the symptoms were mild in the emergency department the symptoms are unchanged. It is unknown whether or not the patient has had similar symptoms in the past. It is unknown whether or not the patient has recently seen a physician. Per EMS, patient called 911 this morning after experiencing palpitations, patient reports feels like heart is thumping harder than normal, EMS noted fever and strong odor of urine. Patient denies focal pain. Denies shortness of breath or chest pain.. Historical: - Allergies: 10:45 No Known Allergies; tw2 - Home Meds: 10:45 Plavix 75 mg Oral tab 1 tab once daily [Active]; metformin 500 mg Oral Tb24 1 tab once tw2 daily [Active]; levothyroxine 200 mcg tab 1 tab once daily [Active]; isosorbide mononitrate 30 mg Oral Tb24 1 tab once daily [Active]; atorvastatin 40 mg Oral tab 1 tab nightly [Active]; esomeprazole magnesium 40 mg Oral cpDR 1 cap once daily [Active]; - PMHx: 10:45 Diabetes - IDDM; High Cholesterol; Hypertension; cva; left sided weakness; tw2 - Immunization history:: Adult Immunizations. - Social history:: Smoking status: . - Family history:: not pertinent. - Hospitalizations: : No recent hospitalization is reported. ROS: 10:48 Constitutional: Negative for fever, chills, and weight loss, Eyes: Negative for injury, rn pain, redness, and discharge, Neck: Negative for injury, pain, and swelling, Cardiovascular: Negative for chest pain, and edema, Respiratory: Negative for shortness of breath, cough, wheezing, and pleuritic chest pain, Abdomen/GI: Negative for abdominal pain, nausea, vomiting, diarrhea, and constipation, Back: Negative for injury and pain, : Negative for injury, bleeding, discharge, and swelling, MS/Extremity: Negative for injury and deformity, Skin: Negative for injury, rash, and discoloration, Neuro: Negative for headache, weakness, numbness, tingling, and seizure. Exam: 10:48 Constitutional: Overweight woman no acute distress. Head/Face: Normocephalic, rn atraumatic. ENT: Dry mucous membranes, no oral swelling or stridor Cardiovascular: Regular rate and rhythm. No pulse deficits. Respiratory: No increased work of breathing, no retractions or nasal flaring. Abdomen/GI: Soft, nontender, nondistended. No masses. Skin: Warm, dry MS/ Extremity: Pulses equal, no cyanosis. Neuro: Awake and alert, GCS 15, oriented to person, and situation, not to place or time. 13:48 ECG was reviewed by the Attending Physician. rn Vital Signs: 10:35 BP 136 / 66; Pulse 81; Resp 17; tw2 10:46 Temp 98.5(O); tw2 12:02 BP 109 / 56; Pulse 47; Resp 15; Pulse Ox 99% on R/A; tw2 13:05 BP 138 / 80; Pulse 95; Resp 19; Pulse Ox 95% on R/A; tw2 13:58 BP 132 / 94; Pulse 85; Resp 17; Pulse Ox 96% on R/A; tw2 MDM: 10:37 Patient medically screened. rn 13:47 Data reviewed: vital signs, nurses notes, lab test result(s), EKG, radiologic studies, rn plain films, and as a result, I will discharge patient. 13:48 Counseling: I had a detailed discussion with the patient and/or guardian regarding: the rn historical points, exam findings, and any diagnostic results supporting the discharge/admit diagnosis, lab results, radiology results, the need for outpatient follow up, to return to the emergency department if symptoms worsen or persist or if there are any questions or concerns that arise at home. Response to treatment: the patient's symptoms have markedly improved after treatment, and as a result, I will discharge patient. Special discussion: I discussed with the patient/guardian in detail that at this point there is no indication for admission to the hospital. It is understood, however, that if the symptoms persist or worsen the patient needs to return immediately for re-evaluation. ED course: No acute cause of patient's symptoms here in ER. Stable vital signs. No arrhythmia. ECG normal. Procalcitonin negative patient afebrile, urine negative for infection. Stable H\T\H. Will DC home with return precautions and PCP follow-up. 04/05 10:44 Order name: CBC with Diff 04/05 10:44 Order name: Basic Metabolic Panel 04/05 10:44 Order name: Urine Culture 04/05 10:44 Order name: Urine Microscopic Only; Complete Time: 12:26 04/05 10:44 Order name: Procalcitonin; Complete Time: 13:06 04/05 10:44 Order name: Lactate; Complete Time: 12:13 04/05 10:44 Order name: Blood Culture Adult (2) 04/05 10:44 Order name: XRAY Chest (1 view); Complete Time: 12:23 04/05 10:44 Order name: EKG; Complete Time: 10:45 04/05 10:44 Order name: CBC with Automated Diff; Complete Time: 12:23 [facility] 04/05 10:44 Order name: Basic Metabolic Panel; Complete Time: 12:13 [facility] 04/05 12:04 Order name: Urine Dipstick-Ancillary; Complete Time: 12:13 [facility] 04/05 12:52 Order name: SARS-COV-2 RT PCR; Complete Time: 13:06 [facility] 04/05 10:44 Order name: Cardiac monitoring; Complete Time: 11:04 04/05 10:44 Order name: O2 Sat Monitoring; Complete Time: 11:43 04/05 10:44 Order name: IV Start; Complete Time: 11:43 04/05 10:44 Order name: Urine Dipstick-Ancillary (obtain specimen); Complete Time: 12:01 04/05 10:44 Order name: EKG - Nurse/Tech; Complete Time: 11:43 04/05 11:11 Order name: Straight Cath - Urine; Complete Time: 12:01 tw2 EC:48 Rate is 76 beats/min. Rhythm is regular. QRS [place] is Normal. SD interval is normal. QRS rn interval is normal. QT interval is normal. No Q waves. T waves are Normal. No ST changes noted. Clinical impression: Normal ECG. Interpreted by me. Reviewed by me. Administered Medications: No medications were administered Disposition Summary: 04/05/21 13:50 Discharge Ordered Location: Home rn Problem: new rn Symptoms: have improved rn Condition: Stable rn Diagnosis - Palpitations rn Followup: rn - With: Private Physician - When: As needed - Reason: Recheck today's complaints, Re-evaluation by your physician Discharge Instructions: - Discharge Summary Sheet rn - Palpitations rn Forms: - Medication Reconciliation Form rn - Thank You Letter rn - Antibiotic communications intern - Prescription Opioid Use rn - SBAR form ss Signatures: Dispatcher [employer] Josafat Lares MD MD rn Wise, Tara, RN RN tw2 Corrections: (The following items were deleted from the chart) 11:43 10:45 CORONAVIRUS+MR.LAB.BRZ ordered. [facility]
--- NOTE | 2021-04-06 07:30 | EKG ---
Test Date: 2021-04-05 Test Time: 11:10:01 Lead Fabricator: CAESAR MEASUREMENT RESULTS: Intervals: Rate: 76 HI: 130 QRSD: 64 QT: 400 QTc: 450 [place]: P: 49 HI: 130 QRS: -3 T: 16 INTERPRETIVE STATEMENTS: Normal sinus rhythm Normal ECG Compared to ECG 02/15/2021 14:55:42 No significant changes Electronically Signed On 04-06-21 07:28:29 CDT by Xavier Eugene
[2021-04-06 10:31] VITALS: TEMP 98.5
[2021-04-06 10:35] VITALS: BP 132/94; O2SAT 96
== END 2021-04-05 14:21 | disposition home or self-care (01) ==
LOC: ER 10:33
DX: R00.2 Palpitations (principal); I10 Essential (primary) hypertension; E11.9 Type 2 diabetes mellitus without complications; Z79.01 Long term (current) use of anticoagulants; Z86.73 Personal history of transient ischemic attack (TIA), and cerebral infarction without residual deficits; Z20.822 Contact with and (suspected) exposure to COVID-19
CPT/HCPCS: 93005; 87040 ×2; 87088; 85025; 87086; 80048; 36415; 83605; 84145; 71045; 51702; 99284; U0003; 81003; 81015

== ENCOUNTER 2021-04-06 14:06 | Emergency (ER) | payer OTHER ==
--- OUTSIDE RECORDS SUMMARY | 2021-04-06 14:12 | XMS REPORT | Continuity of Care Document ---
:1945 Author Organization [facility] t Address 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 Social History Smoking Status Start Date Stop Date Source Former Smoker [facility] Medications Ordered Filled Start Stop Current Ordering Indication Dosage Frequency Signature Comments Components Source Medication Medication Date Date Medication? Clinician (SIG) Name Name acetaminoph acetaminoph No acetaminop [facility] [place] 300 [...] Source Name Name influenza, influenza, 2020-06-17 Completed [facility] injectable, injectable, 00:00:00 Medical Grou p quadrivalent quadrivalent influenza, high dose influenza, high 2019-07-15 Completed [facility] seasonal dose seasonal 16:23:03 Medical Bon up Vital Signs Vital Name Observation Time Observation Value Comments Source BP Diastolic 2021-01-12 00:00:00 74 mm[Hg] [facility] Height 2021-01-12 00:00:00 62 [in_i] [facility] BP Systolic 2021-01-12 00:00:00 139 mm[Hg] [facility] BP Diastolic 2020-11-21 00:00:00 87 mm[Hg] [facility] Height 2020-11-21 00:00:00 62 [in_i] [facility] BMI (Body Mass 2020-11-21 00:00:00 38.8 kg/m2 [facility] Medical Index) Group BP Systolic 2020-11-21 00:00:00 158 mm[Hg] [facility] Body Weight 2020-11-21 00:00:00 3393 [oz_av] [facility] BP Diastolic 2020-07-11 00:00:00 95 mm[Hg] [facility] Height 2020-07-11 00:00:00 62 [in_i] [facility] BMI (Body Mass 2020-07-11 00:00:00 37.7 kg/m2 [facility] BP Systolic 2020-07-11 00:00:00 151 mm[Hg] [facility] Body Weight 2020-07-11 00:00:00 3297 [oz_av] [facility] Height 2020-05-10 00:00:00 62 [in_i] [facility] BMI (Body Mass 2020-05-10 00:00:00 37.9 kg/m2 [facility] Medical Index) Group Body Weight 2020-05-10 00:00:00 3312 [oz_av] [facility] BP Diastolic 2020-04-11 00:00:00 87 mm[Hg] [facility] Height 2020-04-11 00:00:00 62 [in_i] [facility] BMI (Body Mass 2020-04-11 00:00:00 37.9 kg/m2 [facility] Medical Index) Group BP Systolic 2020-04-11 00:00:00 [...] BMI (Body Mass 2020-02-08 00:00:00 41.4 kg/m2 [facility] Medical Index) Group BP Systolic 2020-02-08 00:00:00 151 mm[Hg] [facility] Body Weight 2020-02-08 00:00:00 3621 [oz_av] [facility] BP Diastolic 2020-01-12 00:00:00 71 mm[Hg] [facility] Height 2020-01-12 00:00:00 62 [in_i] [facility] BMI (Body Mass 2020-01-12 00:00:00 40.6 kg/m2 [facility] Medical Index) Group BP Systolic 2020-01-12 00:00:00 128 mm[Hg] [facility] Body Weight 2020-01-12 00:00:00 222.1 [lb_av] [facility] BP Diastolic 2019-11-04 00:00:00 76 mm[Hg] [facility] Height 2019-11-04 00:00:00 62 [in_i] [facility] BMI (Body Mass 2019-11-04 00:00:00 41.9 kg/m2 [facility] Medical Index) Group BP Systolic 2019-11-04 00:00:00 125 mm[Hg] [facility] Body Weight 2019-11-04 00:00:00 3664 [oz_av] [facility] BP Diastolic 2019-08-17 00:00:00 94 mm[Hg] [facility] Height 2019-08-17 00:00:00 62 [in_i] [facility] BMI (Body Mass 2019-08-17 00:00:00 42.4 kg/m2 [facility] Medical Index) Group BP Systolic 2019-08-17 00:00:00 162 mm[Hg] [facility] Body Weight 2019-08-17 00:00:00 3712 [oz_av] [facility] BP Diastolic 2019-07-15 00:00:00 93 mm[Hg] [facility] Height 2019-07-15 00:00:00 62 [in_i] [facility] BMI (Body Mass 2019-07-15 00:00:00 43.2 kg/m2 [facility] Medical Index) Group BP Systolic 2019-07-15 00:00:00 167 mm[Hg] [facility] Body Weight 2019-07-15 00:00:00 3780 [oz_av] [facility] BP Diastolic 2019-07-02 00:00:00 86 mm[Hg] [facility] Height 2019-07-02 00:00:00 62 [in_i] [facility] BMI (Body Mass 2019-07-02 00:00:00 43.5 kg/m2 [facility] Medical Index) Group BP Systolic 2019-07-02 00:00:00 144 mm[Hg] [facility] Body Weight 2019-07-02 00:00:00 3808 [oz_av] [facility] BP Diastolic 2019-06-08 00:00:00 86 mm[Hg] [facility] Height 2019-06-08 00:00:00 62 [in_i] [facility] BMI (Body Mass 2019-06-08 00:00:00 42.1 kg/m2 [facility] BP Systolic 2019-06-08 00:00:00 144 mm[Hg] [facility] Body Weight 2019-06-08 00:00:00 3680 [oz_av] [facility] BP Diastolic 2019-06-02 00:00:00 91 mm[Hg] [facility] Height 2019-06-02 00:00:00 62 [in_i] [facility] BMI (Body Mass 2019-06-02 00:00:00 41.9 kg/m2 [facility] BP Systolic 2019-06-02 00:00:00 145 mm[Hg] [facility] Body Weight 2019-06-02 00:00:00 3665 [oz_av] [facility] BP Diastolic 2019-04-14 00:00:00 76 mm[Hg] [facility] Height 2019-04-14 00:00:00 62 [in_i] [facility] BMI (Body Mass 2019-04-14 00:00:00 43 kg/m2 [facility] BP Systolic 2019-04-14 00:00:00 134 mm[Hg] [facility] Body Weight 2019-04-14 00:00:00 3760 [oz_av] [facility] BP Diastolic 2019-02-03 00:00:00 80 mm[Hg] [facility] Height 2019-02-03 00:00:00 62 [in_i] [facility] BMI (Body Mass 2019-02-03 00:00:00 43.3 kg/m2 [facility] BP Systolic 2019-02-03 00:00:00 143 mm[Hg] [facility] Body Weight 2019-02-03 00:00:00 236.9 [lb_av] [facility] Height 2018-10-30 00:00:00 62 [in_i] [facility] BMI (Body Mass 2018-10-30 00:00:00 44.8 kg/m2 [facility] BP Systolic 2018-10-30 00:00:00 152 [facility] 2018-10-30 00:00:00 3923 [facility]av[facility] Procedures Procedure Date / Time Performing Source Performed Clinician unlisted imaging order 2020-03-31 [facility] XR, ribs, bilateral 2020-03-31 [facility] 00:00:[facility] MRI, brain, w/o contrast 2019-07-02 [facility] 00[facility] US, duplex, carotid artery 2019-07-02 [facility] 00:[facility] US, echocardiogram, transthoracic, 2019-07-02 [facility] complete, w/ color flow 00:00:00 Medical Group holter monitor 2019-07-02 [facility] 00:00:00 [facility] Group holter monitor 2019-06-29 [facility] 00:00:00 [facility] Group MAMMO, screening, digital, 2019-06-02 [facility] bilateral 00:00:00 Medical Group MAMMO, screening, digital, 2019-04-14 [facility] bilateral 00:00:00 Medical Group Thyroid Surgery 1979-09-09 [facility] 00:[facility] Hysterectomy [facility] Shoulder Joint Surgery [facility] Appendectomy [facility] Eye Surgery Procedure [facility] Esophagogastroduodenoscopy (Surg) [facility] Encounters Start End Encounter Admission Attending Care Care Encounter Source Date/Time Date/Time Type Type Clinicians Facility Department ID 2021-02-22 2021-02-22 Outpatient [facility] [id number] [place] 00:00:00 00:00:[address] 2021-01-12 2021-01-12 [place] [facility] [id number] [facility] Carlos A Contreras Medical Medical MD: [address] [facility] [address], [place] [address] , Ph. 2020-11-21 2020-11-21 George ROBLES [place] - [id number] [facility] 00:00:00 00:00:00 Dallas Borrego MD: [address] [place] [address], [place] [address] , Ph. 2020-07-11 2020-07-11 George MMG [place] - [id number] [facility] 00:00:00 00:00:00 Dallas Borrego MD: [address] [place] [address], [place] [address] , Ph. 2020-05-10 2020-05-10 George MMG [place] - [id number] [facility] 00:00:00 00:00:00 Dallas Borrego MD: [address] [place] [address], [place] [address] , Ph. 2020-04-27 2020-04-27 Outpatient [facility] [id number] [place] 00:00:00 00:00:[address] 2020-04-11 2020-04-11 George MMG [place] - [id number] [facility] 00:00:00 00:00:00 Dallas Borrego MD: [address] [place] [address], [place] [address] , Ph. 2020-03-31 2020-03-31 Vanessa CISSEG [place] - [id number] [facility] 00:00:00 00:00:00 Discovery onofre Chandra VP COMMUNICATIONS: [address] [place] [address] , Ph. 2020-02-08 2020-02-08 George CISSEG [place] - [id number] [facility] 00:00:00 00:00:00 Dallas Borrego MD: [address] [place] [address], [place] [address] , Ph. 2020-01-12 2020-01-12 Fede MM [place] - [id number] [facility] 00:00:00 00:00:00 Alexandru Sanchez MD: Medical Medica l [address] [place] [address] [address], [place] [address] , Ph. [phone] 2020-01-11 2020-01-11 Mary Ann MM [place] - [id number] [facility] 00:00:00 00:00:00 Mrely Toscano Medical Medical VP COMMUNICATIONS: [address] [place] [address] [address], [place] [address] , Ph. 2020-01-04 2020-01-04 George CISSE [place] - [id number] [facility] 00:00:00 00:00:00 Dallas Borrego Medical MD: [address] [place] [address] [address], [place] [address] , Ph. 2019-11-04 2019-11-04 George CISSE [place] - [id number] [facility] 00:00:00 00:00:00 Dallas Borrego MD: [address] [place] [address] [address], [place] [address] , Ph. 2019-08-17 2019-08-17 George CISSE [place] - [id number] [facility] 00:00:00 00:00:00 Dallas Borrego MD: [address] [place] [address] [address], [place] [address] , Ph. 2019-07-15 2019-07-15 George CISSE [place] - [id number] [facility] 00:00:00 00:00:00 Dallas Borrego MD: [address] [place] [address] [address], [place] [address] , Ph. 2019-07-02 2019-07-02 George ROBLES [place] - [id number] [facility] 00:00:00 00:00:00 Dallas Borrego MD: [address] [place] [address] [address], [place] [address] , Ph. 2019-06-08 2019-06-08 George CISSE [place] - [id number] [facility] 00:00:00 00:00:00 Dallas Borrego MD: [address] [place] [address] [address], [place] [address] , Ph. 2019-06-02 2019-06-02 George CISSE [place] - [id number] [facility] 00:00:00 00:00:00 Dallas Borrego MD: [address] [place] [address] [address], [place] [address] , Ph. 2019-04-14 2019-04-14 George CISSE [place] - [id number] [facility] 00:00:00 00:00:00 Dallas Borrego MD: [address] [place] [address] [address], [place] [address] , Ph. 2019-04-08 2019-04-08 George CISSE [place] - [id number] [facility] 00:00:00 00:00:00 Dallas Borrego MD: [address] [place] [address] [address], [place] [address] , Ph. 2019-02-03 2019-02-03 Randell CISSE [place] - [id number] [facility] 00:00:00 00:00:00 Discovery onofre Blum MD: [address] [place] [address] [address], [place] [address] , Ph. 2018-10-30 2018-10-30 George CISSE [place] - [id number] [facility] 00:00:00 00:00:00 Carlos A Contreras, Medical Medical MD: [address] [facility] [address], [place] [address] , Ph. Results Test Description Test Time [...] L MCV [Entitic volume] (test code = 87690-6) 96.2 fL 86-100 mean corpuscular hemoglobin (test [...] Blood (test code = 76.8 % 44.4-80.1 28426-0) Immature granulocytes [#/volume] in Blood (test code = 0.0 K/uL 0.0-0.03 27966-9) lymphocyte% (test code = lymphocyte%) 15.9 % 10.0-50.0 mono % (test code = mono %) 6.0 % 3.6-12.0 eos % (test code = eos %) 0.8 % 0.0-5.4 Basophils/100 leukocytes in Unspecified specimen (test code 0.1 % 0.1-1.2 = 66322-6) Band form neutrophils [#/volume] in Blood (test code = 5.73 K/uL 1.56-6.13 60766-2) Lymphocytes [#/volume] in Unspecified specimen by Automated 1.2 K/u L 1.18-3.74 count (test code = 74688-8) mono # (test code = mono #) 0.45 K/uL 0.24-0.86 eos # (test code = eos #) 0.06 K/uL 0.04-0.36 basophil # (test code = basophil #) 0.01 K/uL 0.01-0.08 NRBC% (test code = NRBC%) 1 /100 WBC 0-0.2 H NRBC# (test code = NRBC#) 0 K/uL [facility] metabolic 2000 panel - Serum or [id number] 03:00:00 Test Item Value Reference Range Interpretation [...] = 7.8 mg/dL 8.8-10.2 L calcium level) [facility] Differential panel - [id number] 03:00:00 Test Item Value Reference Range Interpretation Comments white blood count (test code = 7.5 K/uL 4.0-11.5 white blood count) red blood count (test code = red 2.90 M/uL 3.80-5.20 L blood count) hemoglobin (test code = 8.9 g/dL 10.5-15.7 L hemoglobin) hematocrit (test code = 27.9 % 34.0-50.0 L hematocrit) MCV [Entitic volume] (test code = 96.2 fL 86-100 37612-4) mean corpuscular hemoglobin (test 30.7 pg 26.2-33.4 [...] 44.4-80.1 leukocytes in Blood (test code = 72246-5) Immature granulocytes [#/volume] 0.0 K/uL 0.0-0.03 in Blood (test code = 20238-9) lymphocyte% (test code = 15.9 % 10.0-50.0 lymphocyte%) mono % (test code = mono %) 6.0 % 3.6-12.0 eos % (test code = eos %) 0.8 % 0.0-5.4 Basophils/100 leukocytes in 0.1 % 0.1-1.2 Unspecified specimen (test code = 95475-6) Band form neutrophils [#/volume] 5.73 K/uL 1.56-6.13 in Blood (test code = 79946-8) Lymphocytes [#/volume] in 1.2 K/uL 1.18-3.74 Unspecified specimen by Automated count (test code = 15896-4) mono # (test code = mono #) 0.45 K/uL 0.24-0.86 eos # (test code = eos #) 0.06 K/uL 0.04-0.36 basophil # (test code = basophil 0.01 K/uL 0.01-0.08 #) NRBC% (test code = NRBC%) 1 /100 WBC 0-0.2 H NRBC# (test code = NRBC#) 0 K/uL [facility] metabolic 2000 panel - Serum or [id number] 03:00:00 Test Item Value Reference Range Interpretation [...] = 7.8 mg/dL 8.8-10.2 L calcium level) [facility] Differential panel - [id number] 03:00:00 Test Item Value Reference Range Interpretation Comments white blood count (test code = 7.5 K/uL 4.0-11.5 white blood count) red blood count (test code = red 2.90 M/uL 3.80-5.20 L blood count) hemoglobin (test code = 8.9 g/dL 10.5-15.7 L hemoglobin) hematocrit (test code = 27.9 % 34.0-50.0 L hematocrit) MCV [Entitic volume] (test code = 96.2 fL 86-100 03627-2) mean corpuscular hemoglobin (test 30.7 pg 26.2-33.4 [...] 44.4-80.1 leukocytes in Blood (test code = 47666-8) Immature granulocytes [#/volume] 0.0 K/uL 0.0-0.03 in Blood (test code = 64147-1) lymphocyte% (test code = 15.9 % 10.0-50.0 lymphocyte%) mono % (test code = mono %) 6.0 % 3.6-12.0 eos % (test code = eos %) 0.8 % 0.0-5.4 Basophils/100 leukocytes in 0.1 % 0.1-1.2 Unspecified specimen (test code = 17670-8) Band form neutrophils [#/volume] 5.73 K/uL 1.56-6.13 in Blood (test code = 47517-3) Lymphocytes [#/volume] in 1.2 K/uL 1.18-3.74 Unspecified specimen by Automated count (test code = 64611-1) mono # (test code = mono #) 0.45 K/uL 0.24-0.86 eos # (test code = eos #) 0.06 K/uL 0.04-0.36 basophil # (test code = basophil 0.01 K/uL 0.01-0.08 #) NRBC% (test code = NRBC%) 1 /100 WBC 0-0.2 H NRBC# (test code = NRBC#) 0 K/uL [facility] metabolic 2000 panel - Serum or [id number] 03:00:00 Test Item Value Reference Range Interpretation [...] = 7.8 mg/dL 8.8-10.2 L calcium level) [facility] Differential panel - [id number] 12:59:00 Test Item Value Reference Range Interpretation Comments white blood count (test code = 8.7 K/uL 4.0-11.5 white blood count) red blood count (test code = red 3.00 M/uL 3.80-5.20 L blood count) hemoglobin (test code = 9.1 g/dL 10.5-15.7 L hemoglobin) hematocrit (test code = 28.4 % 34.0-50.0 L hematocrit) MCV [Entitic volume] (test code = 94.7 fL 86-100 22558-9) mean corpuscular hemoglobin (test 30.3 pg 26.2-33.4 [...] 44.4-80.1 leukocytes in Blood (test code = 38315-5) Immature granulocytes [#/volume] 0.0 K/uL 0.0-0.03 H in Blood (test code = 42420-7) lymphocyte% (test code = 12.6 % 10.0-50.0 lymphocyte%) mono % (test code = mono %) 6.0 % 3.6-12.0 eos % (test code = eos %) 0.6 % 0.0-5.4 Basophils/100 leukocytes in 0.2 % 0.1-1.2 Unspecified specimen (test code = 62991-8) Band form neutrophils [#/volume] 6.95 K/uL 1.56-6.13 H in Blood (test code = 14668-3) Lymphocytes [#/volume] in 1.1 K/uL 1.18-3.74 L Unspecified specimen by Automated count (test code = 41140-8) mono # (test code = mono #) 0.52 K/uL 0.24-0.86 eos # (test code = eos #) 0.05 K/uL 0.04-0.36 basophil # (test code = basophil 0.02 K/uL 0.01-0.08 #) NRBC% (test code = NRBC%) 1 /100 WBC 0-0.2 H NRBC# (test code = NRBC#) 0 K/uL [facility] metabolic 2000 panel - Serum or [id number] 12:59:00 Test Item Value Reference Range Interpretation [...] = 7.8 mg/dL 8.8-10.2 L calcium level) [facility] Differential panel - [id number] 12:59:00 Test Item Value Reference Range Interpretation Comments white blood count (test code = 8.7 K/uL 4.0-11.5 white blood count) red blood count (test code = red 3.00 M/uL 3.80-5.20 L blood count) hemoglobin (test code = 9.1 g/dL 10.5-15.7 L hemoglobin) hematocrit (test code = 28.4 % 34.0-50.0 L hematocrit) MCV [Entitic volume] (test code = 94.7 fL 86-100 93646-5) mean corpuscular hemoglobin (test 30.3 pg 26.2-33.4 [...] 44.4-80.1 leukocytes in Blood (test code = 96941-5) Immature granulocytes [#/volume] 0.0 K/uL 0.0-0.03 H in Blood (test code = 79840-0) lymphocyte% (test code = 12.6 % 10.0-50.0 lymphocyte%) mono % (test code = mono %) 6.0 % 3.6-12.0 eos % (test code = eos %) 0.6 % 0.0-5.4 Basophils/100 leukocytes in 0.2 % 0.1-1.2 Unspecified specimen (test code = 91455-6) Band form neutrophils [#/volume] 6.95 K/uL 1.56-6.13 H in Blood (test code = 90650-4) Lymphocytes [#/volume] in 1.1 K/uL 1.18-3.74 L Unspecified specimen by Automated count (test code = 79146-4) mono # (test code = mono #) 0.52 K/uL 0.24-0.86 eos # (test code = eos #) 0.05 K/uL 0.04-0.36 basophil # (test code = basophil 0.02 K/uL 0.01-0.08 #) NRBC% (test code = NRBC%) 1 /100 WBC 0-0.2 H NRBC# (test code = NRBC#) 0 K/uL [facility] metabolic 2000 panel - Serum or [id number] 12:59:00 Test Item Value Reference Range Interpretation [...] = 7.8 mg/dL 8.8-10.2 L calcium level) [facility] Differential panel - [id number] 12:59:00 Test Item Value Reference Range Interpretation Comments white blood count (test code = 8.7 K/uL 4.0-11.5 white blood count) red blood count (test code = red 3.00 M/uL 3.80-5.20 L blood count) hemoglobin (test code = 9.1 g/dL 10.5-15.7 L hemoglobin) hematocrit (test code = 28.4 % 34.0-50.0 L hematocrit) MCV [Entitic volume] (test code = 94.7 fL 86-100 22220-1) mean corpuscular hemoglobin (test 30.3 pg 26.2-33.4 [...] 44.4-80.1 leukocytes in Blood (test code = 86171-9) Immature granulocytes [#/volume] 0.0 K/uL 0.0-0.03 H in Blood (test code = 26848-5) lymphocyte% (test code = 12.6 % 10.0-50.0 lymphocyte%) mono % (test code = mono %) 6.0 % 3.6-12.0 eos % (test code = eos %) 0.6 % 0.0-5.4 Basophils/100 leukocytes in 0.2 % 0.1-1.2 Unspecified specimen (test code = 28059-9) Band form neutrophils [#/volume] 6.95 K/uL 1.56-6.13 H in Blood (test code = 40666-2) Lymphocytes [#/volume] in 1.1 K/uL 1.18-3.74 L Unspecified specimen by Automated count (test code = 56508-5) mono # (test code = mono #) 0.52 K/uL 0.24-0.86 eos # (test code = eos #) 0.05 K/uL 0.04-0.36 basophil # (test code = basophil 0.02 K/uL 0.01-0.08 #) NRBC% (test code = NRBC%) 1 /100 WBC 0-0.2 H NRBC# (test code = NRBC#) 0 K/uL [facility] metabolic 2000 panel - Serum or [id number] 12:59:00 Test Item Value Reference Range Interpretation [...] = 7.8 mg/dL 8.8-10.2 L calcium level) [facility] [id number] 10:15:00 Test Item Value Reference Range Interpretation Comments hemoglobin (test code = hemoglobin) 9.4 g/dL 10.5-15.7 hematocrit (test code = hematocrit) 29.4 % 34.0-50.0 [facility] - [id number] 10:15:00 Test Item Value Reference Range Interpretation Comments hemoglobin (test code = hemoglobin) 9.4 g/dL 10.5-15.7 hematocrit (test code = hematocrit) 29.4 % 34.0-50.0 [facility] - [id number] 10:15:00 Test Item Value Reference Range Interpretation Comments hemoglobin (test code = hemoglobin) 9.4 g/dL 10.5-15.7 hematocrit (test code = hematocrit) 29.4 % 34.0-50.0 [facility] - [id number] 01:45:00 Test Item Value Reference Range Interpretation Comments white blood count (test code = 8.4 K/uL 4.0-11.5 white blood count) red blood count (test code = red 2.27 M/uL 3.80-5.20 L blood count) hemoglobin (test code = 7.0 g/dL 10.5-15.7 L hemoglobin) hematocrit (test code = 21.8 % 34.0-50.0 L hematocrit) MCV [Entitic volume] (test code = 96.0 fL 86-100 63650-2) mean corpuscular hemoglobin (test 30.8 pg 26.2-33.4 [...] 44.4-80.1 leukocytes in Blood (test code = 67171-1) Immature granulocytes [#/volume] 0.0 K/uL 0.0-0.03 H in Blood (test code = 41255-8) lymphocyte% (test code = 14.9 % 10.0-50.0 lymphocyte%) mono % (test code = mono %) 5.5 % 3.6-12.0 eos % (test code = eos %) 0.7 % 0.0-5.4 Basophils/100 leukocytes in 0.1 % 0.1-1.2 Unspecified specimen (test code = 86598-4) Band form neutrophils [#/volume] 6.55 K/uL 1.56-6.13 H in Blood (test code = 87259-1) Lymphocytes [#/volume] in 1.3 K/uL 1.18-3.74 Unspecified specimen by Automated count (test code = 06806-9) mono # (test code = mono #) 0.46 K/uL 0.24-0.86 eos # (test code = eos #) 0.06 K/uL 0.04-0.36 basophil # (test code = basophil 0.01 K/uL 0.01-0.08 #) NRBC% (test code = NRBC%) 3 /100 WBC 0-0.2 H NRBC# (test code = NRBC#) 0 K/uL [facility] unspecified - [id number] 01:45:00NeutrophilsBandLymphocyteMonocyteEosinophilPlatelet [facility] 2000 panel - Serum or [id number] 01:45:00 Test Item Value Reference Range Interpretation [...] = 7.9 mg/dL 8.8-10.2 L calcium level) [facility] - [id number] 01:45:00 Test Item Value Reference Range Interpretation Comments white blood count (test code = 8.4 K/uL 4.0-11.5 white blood count) red blood count (test code = red 2.27 M/uL 3.80-5.20 L blood count) hemoglobin (test code = 7.0 g/dL 10.5-15.7 L hemoglobin) hematocrit (test code = 21.8 % 34.0-50.0 L hematocrit) MCV [Entitic volume] (test code = 96.0 fL 86-100 82680-1) mean corpuscular hemoglobin (test 30.8 pg 26.2-33.4 [...] 44.4-80.1 leukocytes in Blood (test code = 20482-2) Immature granulocytes [#/volume] 0.0 K/uL 0.0-0.03 H in Blood (test code = 64657-9) lymphocyte% (test code = 14.9 % 10.0-50.0 lymphocyte%) mono % (test code = mono %) 5.5 % 3.6-12.0 eos % (test code = eos %) 0.7 % 0.0-5.4 Basophils/100 leukocytes in 0.1 % 0.1-1.2 Unspecified specimen (test code = 69477-6) Band form neutrophils [#/volume] 6.55 K/uL 1.56-6.13 H in Blood (test code = 85453-9) Lymphocytes [#/volume] in 1.3 K/uL 1.18-3.74 Unspecified specimen by Automated count (test code = 06540-6) mono # (test code = mono #) 0.46 K/uL 0.24-0.86 eos # (test code = eos #) 0.06 K/uL 0.04-0.36 basophil # (test code = basophil 0.01 K/uL 0.01-0.08 #) NRBC% (test code = NRBC%) 3 /100 WBC 0-0.2 H NRBC# (test code = NRBC#) 0 K[facility]L [facility], [facility] unspecified - [id number] 01:45:00NeutrophilsBandLymphocyteMonocyteEosinophilPlatelet EstimateMataAlliance HospitalBasic metabolic 2000 panel - Serum or [id number] 01:45:00 Test Item Value Reference Range Interpretation [...] = 7.9 mg/dL 8.8-10.2 L calcium level) [facility] Differential panel - [id number] 01:45:00 Test Item Value Reference Range Interpretation Comments white blood count (test code = 8.4 K/uL 4.0-11.5 white blood count) red blood count (test code = red 2.27 M/uL 3.80-5.20 L blood count) hemoglobin (test code = 7.0 g/dL 10.5-15.7 L hemoglobin) hematocrit (test code = 21.8 % 34.0-50.0 L hematocrit) MCV [Entitic volume] (test code = 96.0 fL 86-100 37407-1) mean corpuscular hemoglobin (test 30.8 pg 26.2-33.4 [...] 44.4-80.1 leukocytes in Blood (test code = 56131-8) Immature granulocytes [#/volume] 0.0 K/uL 0.0-0.03 H in Blood (test code = 75877-5) lymphocyte% (test code = 14.9 % 10.0-50.0 lymphocyte%) mono % (test code = mono %) 5.5 % 3.6-12.0 eos % (test code = eos %) 0.7 % 0.0-5.4 Basophils/100 leukocytes in 0.1 % 0.1-1.2 Unspecified specimen (test code = 34180-7) Band form neutrophils [#/volume] 6.55 K/uL 1.56-6.13 H in Blood (test code = 35308-7) Lymphocytes [#/volume] in 1.3 K/uL 1.18-3.74 Unspecified specimen by Automated count (test code = 43111-8) mono # (test code = mono #) 0.46 K/uL 0.24-0.86 eos # (test code = eos #) 0.06 K/uL 0.04-0.36 basophil # (test code = basophil 0.01 K/uL 0.01-0.08 #) NRBC% (test code = NRBC%) 3 /100 WBC 0-0.2 H NRBC# (test code = NRBC#) 0 K[facility]L [facility] method unspecified - [id number] 01:45:00NeutrophilsBandLymphocyteMonocyteEosinophilPlatelet EstimateMataAlliance HospitalBasic metabolic 2000 panel - Serum or [id number] 01:45:00 Test Item Value Reference Range Interpretation [...] = 7.9 mg/dL 8.8-10.2 L calcium level) [facility] - [id number] 13:40:00 Test Item Value Reference Range Interpretation Comments Blood type and Crossmatch unit number: panel - Blood (test code [id number] = 11982-2) [place] 03035020-05-08 13:40:[facility]:40[place] 03035020-[place] 13:40:00Results [place] 03035020-05-08 13:40:[facility] 13:40:[place] 03035020-05-08 13:40:00Results [place] 03035020-05-08 13:40:[facility] 13:40:00Results[place] 03035020-05-08 13:40:00Results [place] 03035020-05-08 13:40:[facility] 13:40:[place] 03035020-05-08 13:40:00Results [place] 03035020-05-08 13:40[facility] 13:40:[facility] Jbqjbiga5421-87-72 13:40:00Results [facility] Bdciqbuk2406-95-39 13:40:00[facility]-15 13:40:[facility] Grvdostz0749-53-99 13:40:00Results [facility] Vevczmtp5792-84-48 13:40:00[facility]-15 13:40:00[facility] Fpildbpr4028-12-53 13:40:00Results [facility] Mjgiuvnx0941-44-13 13:40:00[facility]-15 13:40:00[facility] Hcvxifoz7320-45-78 13:40:00Results [facility] Zjagwmxe9403-65-77 13:40:00[facility]-01-15 13:40:00[facility] Ovvtykuf4142-04-59 13:40:00Results [facility] GroupBlood type and Crossmatch panel - [id number] 13:40:00 Test Item Value Reference Range Interpretation Comments Blood type and Crossmatch unit number: panel - Blood (test code [id number] = 39600-0) [facility] Gpixkabk8975-34-98 13:40:00[facility]-15 13:40:[facility] Zqvvzlso3463-35-48 13:40:00Results [facility] Miwtgfcy6520-63-63 13:40:00[facility]-01-15 13:40:00[facility] Bkasquas8096-60-37 13:40:00Results [facility] Wijzlroy5999-23-41 13:40:00[facility]-01-15 13:40:00[facility] Sytbvpjw5112-39-72 13:40:00Results [facility] Whbtcvsz0272-17-86 13:40:00[facility]-01-15 13:40:00[facility] Gdrapkis9576-22-26 13:40:00Results [facility] Uvfbtqln8163-40-69 13:40:00[facility] 2020-01-15 13:40:00[facility] Voaigtjm8412-35-95 13:40:00Results [facility] Duavhcxy6734-48-92 13:40:00[facility] 2020-01-15 13:40:00[facility] Ojurbzfq0823-19-33 13:40:00Results [facility] Jbcbvqqw3145-78-12 13:40:00[facility] 2020-01-15 13:40:00[facility] Cgqjyzlf4468-31-69 13:40:00Results [facility] Juwrsgrh8048-87-74 13:40:00[facility] 2020-01-15 13:40:00[facility] Sfubqruz4216-76-41 13:40:00Results [facility] Lvheqjrc6146-92-56 13:40:00[facility] 2020-01-15 13:40:00[facility] Vfdgovfd1259-65-55 13:40:00Results [facility] GroupBlood type and Crossmatch panel - [id number] 13:40:00 Test Item Value Reference Range Interpretation Comments Blood type and Crossmatch unit number: panel - Blood (test code [id number] = 87460-4) [facility] Fzwigikq2330-83-15 13:40:00[facility] 2020-01-15 13:40:00[facility] Arnmyvjo9299-52-54 13:40:00Results [facility] Fgqyrjsi8974-49-14 13:40:00[facility] 2020-01-15 13:40:00[facility] Irssohzf3790-42-00 13:40:00Results [facility] Kywnpzcx3204-04-84 13:40:00[facility] 2020-01-15 13:40:00[facility] Mchjdqlg3303-11-89 13:40:00Results [facility] Yqrvkcuk0206-00-96 13:40:00[facility] 2020-01-15 13:40:00[facility] Gqfxowcw6777-17-79 13:40:00Results [facility] Wprpfpjf6182-47-52 13:40:00[facility] 2020-01-15 13:40:00[facility] Lemjwdzc7129-89-92 13:40:00Results [facility] Juvaeiqf3547-79-83 13:40:00[facility] 2020-01-15 13:40:00[facility] Litpzhkd2039-27-70 13:40:00Results [facility] Iocbxjoo7150-40-62 13:40:00[facility] 2020-01-15 13:40:00[facility] Wzasucvt5155-63-59 13:40:00Results [facility] Gviphhyq8936-44-01 13:40:00[facility] 2020-01-15 13:40:00[facility] Espzwbjv9940-76-11 13:40:00Results [facility] 13:40[facility] 2020-[facility]-15 13:40:00Results[facility] 13:40:00Results [facility]Hemoglobin [facility] Hematocrit panel - Trvhu9674-39-47 09:48:00 Test Item Value Reference Range Interpretation Comments hemoglobin (test code = hemoglobin) 7.6 g/dL 10.5-15.7 hematocrit (test code = hematocrit) 23.5 % 34.0-50.0 [facility] - Kekwv0260-08-55 09:48:00 Test Item Value Reference Range Interpretation Comments hemoglobin (test code = hemoglobin) 7.6 g/dL 10.5-15.7 hematocrit (test code = hematocrit) 23.5 % 34.0-50.0 [facility] - [id number] 09:48:00 Test Item Value Reference Range Interpretation Comments hemoglobin (test code = hemoglobin) 7.6 g/dL 10.5-15.7 hematocrit (test code = hematocrit) 23.5 % 34.0-50.0 [facility]/[id number] 08:07:00 Test Item Value Reference Range Interpretation Comments prothrombin time (test code = 10.4 seconds 10.3-12.3 prothrombin time) INR in Blood by Coagulation 0.96 assay (test code = 65635-2) [facility] [id number] 08:07:00 Test Item Value Reference Range Interpretation Comments INR in Blood by Coagulation 22.0 seconds 22.5-37.0 L assay (test code = 50190-4) [facility] and Indirect antibody screen panel - Blood 2020-01-15 08:07:00 Test Item Value Reference Range Interpretation Comments Rh [Type] in Blood (test code = neg 15825-6) ABO and Rh group panel - Blood O negative (test code = 26807-6) [facility]/EHG9125-93-11 08:07:00 Test Item Value Reference Range Interpretation Comments prothrombin time (test code = 10.4 seconds 10.3-12.3 prothrombin time) INR in Blood by Coagulation 0.96 assay (test code = 21492-8) [facility] ciks9123-80-21 08:07:00 Test Item Value Reference Range Interpretation Comments INR in Blood by Coagulation 22.0 seconds 22.5-37.0 L assay (test code = 03168-2) [facility] - Blood 2020-01-15 08:07:00 Test Item Value Reference Range Interpretation Comments Rh [Type] in Blood (test code = neg 28795-7) ABO and Rh group panel - Blood O negative (test code = 81138-1) [facility]/BPU8582-05-48 08:07:00 Test Item Value Reference Range Interpretation Comments prothrombin time (test code = 10.4 seconds 10.3-12.3 prothrombin time) INR in Blood by Coagulation 0.96 assay (test code = 53713-0) [facility] owol7260-13-57 08:07:00 Test Item Value Reference Range Interpretation Comments INR in Blood by Coagulation 22.0 seconds 22.5-37.0 L assay (test code = 41013-1) [facility] type and Indirect antibody screen panel - Blood 2020-01-15 08:07:00 Test Item Value Reference Range Interpretation Comments Rh [Type] in Blood (test code = neg 09309-6) ABO and Rh group panel - Blood O negative (test code = 43303-9) [facility]Com[facility] metabolic 2000 panel - Serum or Plasma [...] Serum or Plasma (test code = 6768-6) [facility] GroupCreatine kinase [Enzymatic activity/volume] in Serum or [id number] 07:32:00 Test Item Value Reference Range Interpretation Comments creatine kinase (test code = creatine 901 U/L 20-180 H kinase) [facility]adaNatriuretic peptide.B prohormone N-Terminal [Mass/volume] in Serum or Jxfowg0117-91-41 07:32:00 Test Item Value Reference Range Interpretation Comments N-term pro natriuretic peptide (test 91 pg/mL 0-125 code = N-term pro natriuretic peptide) [facility] GroupTroponin I.cardiac [Mass/volume] in Yujcb5313-88-39 07:32:00 Test Item Value Reference Range Interpretation Comments cardiac troponin I (test code = cardiac <0.30 0.0-0.5 troponin I) [facility] GroupCreatine kinase.MB [Mass/volume] in Serum or Plasma 2020-01-15 07:32:00 Test Item Value Reference Range Interpretation Comments Creatine kinase.MB [Mass/volume] 25.1 NG/mL 0.0-3.6 H in Serum or Plasma by Immunoassay (test code = 70050-5) [facility] 2000 [facility] - Serum or Plasma [...] Serum or Plasma (test code = 6768-6) [facility] kinase [Enzymatic activity/volume] in Serum or [id number] 07:32:00 Test Item Value Reference Range Interpretation Comments creatine kinase (test code = creatine 901 U/L 20-180 H kinase) [facility]adaNatriuretic peptide.B prohormone N-Terminal [Mass/volume] in Serum or [id number] 07:32:00 Test Item Value Reference Range Interpretation Comments N-term pro natriuretic peptide (test 91 pg/mL 0-125 code = N-term pro natriuretic peptide) [facility]Troponin I.cardiac [Mass/volume] in Yserf4891-26-85 07:32:00 Test Item Value Reference Range Interpretation Comments cardiac troponin I (test code = cardiac <0.30 0.0-0.5 troponin I) [facility] kinase.MB [Mass/volume] in Serum or Plasma 2020-01-15 07:32:00 Test Item Value Reference Range Interpretation Comments Creatine kinase.MB [Mass/volume] 25.1 NG/mL 0.0-3.6 H in Serum or Plasma by Immunoassay (test code = 59542-2) [facility] Differential panel - [id number] 07:32:00 Test Item Value Reference Range Interpretation Comments white blood count (test code = 8.5 K/uL 4.0-11.5 white blood count) red blood count (test code = red 1.60 M/uL 3.80-5.20 L blood count) hemoglobin (test code = 5.1 g/dL 10.5-15.7 hemoglobin) hematocrit (test code = 16.9 % 34.0-50.0 hematocrit) MCV [Entitic volume] (test code = 105.6 fL 86-100 H 62302-8) mean corpuscular hemoglobin (test 31.9 pg 26.2-33.4 [...] H leukocytes in Blood (test code = 22440-8) Immature granulocytes [#/volume] 0.0 K/uL 0.0-0.03 H in Blood (test code = 27166-3) lymphocyte% (test code = 11.4 % 10.0-50.0 lymphocyte%) mono % (test code = mono %) 5.4 % 3.6-12.0 eos % (test code = eos %) 0.5 % 0.0-5.4 Basophils/100 leukocytes in 0.1 % 0.1-1.2 Unspecified specimen (test code = 16031-6) Band form neutrophils [#/volume] 6.97 K/uL 1.56-6.13 H in Blood (test code = 61238-2) Lymphocytes [#/volume] in 1.0 K/uL 1.18-3.74 L Unspecified specimen by Automated count (test code = 09025-8) mono # (test code = mono #) 0.46 K/uL 0.24-0.86 eos # (test code = eos #) 0.04 K/uL 0.04-0.36 basophil # (test code = basophil 0.01 K/uL 0.01-0.08 #) NRBC% (test code = NRBC%) 2 /100 WBC 0-0.2 H NRBC# (test code = NRBC#) 0 K/uL [facility], method unspecified - [id number] 07:32:00NeutrophilsBandLymphocyteMonocyteEosinophilBasophilPlatelet EstimateDifferential comment-[facility] HospitalComprehensive [facility] 2000 panel - Serum or [id number] 07:32:00 Test Item Value Reference Range Interpretation [...] Serum or Plasma (test code = 6768-6) [facility] GroupCreatine kinase [Enzymatic activity/volume] in Serum or Xfradb8823-03-56 07:32:00 Test Item Value Reference Range Interpretation Comments creatine kinase (test code = creatine 901 U/L 20-180 H kinase) [facility]adaNatriuretic peptide.B prohormone N-Terminal [Mass/volume] in Serum or Yuzycq3988-81-15 07:32:00 Test Item Value Reference Range Interpretation Comments N-term pro natriuretic peptide (test 91 pg/mL 0-125 code = N-term pro natriuretic peptide) [facility]roponin I.cardiac [Mass/volume] in Czlok7984-29-48 07:32:00 Test Item Value Reference Range Interpretation Comments cardiac troponin I (test code = cardiac <0.30 0.0-0.5 troponin I) [facility] kinase.MB [Mass/volume] in Serum or Plasma 2020-01-15 07:32:00 Test Item Value Reference Range Interpretation Comments Creatine kinase.MB [Mass/volume] 25.1 NG/mL 0.0-3.6 H in Serum or Plasma by Immunoassay (test code = 86050-7) [facility]adaUrinalysis complete panel - [id number] 04:45:00 Test Item Value Reference Range Interpretation Comments Color of Urine by Auto (test colorless code = 99294-9) Appearance of Urine (test code clear clear = 5767-9) Glucose [Presence] in Urine by negative negative Automated test strip (test code = 91365-6) Bilirubin.total [Mass/volume] negative negative in Urine (test code = 1978-6) Ketones [Mass/volume] in Urine negative negative by Automated test strip (test code = 91111-0) Specific gravity of Urine by 1.008 1.003-1.030 Automated test strip (test code = 71707-9) blood urine (test code = blood negative negative urine) pH of Urine (test code = 5.500 5-9 2756-5) protein urine (UA) (test code = negative negative protein urine (UA)) Urobilinogen [Presence] in normal 0.2-1.0 Urine (test code = 88406-2) Nitrite [Presence] in Urine by negative negative Test strip (test code = 5802-4) Leukocyte esterase [Presence] negative negative in Urine by Automated test strip (test code = 36158-2) Erythrocytes [#/volume] in <1 0-5 Urine by Automated count (test code = 798-9) Leukocytes [#/area] in Urine <1 0-5 sediment by Automated count (test code = 15197-8) Epithelial cells [Presence] in <1 0-5 Urine sediment by Light microscopy (test code = 71339-0) Bacteria identified in Urine by none detected none detect Culture (test code = 630-4) Casts [#/area] in Urine =2-5 none detect sediment by Automated count (test code = 52816-1) urine culture added? (test code no = urine culture added?) [facility] complete [facility] - [id number] 04:45:00 Test Item Value Reference Range Interpretation Comments Color of Urine by Auto (test colorless code = 64474-2) Appearance of Urine (test code clear clear = 5767-9) Glucose [Presence] in Urine by negative negative Automated test strip (test code = 02242-0) Bilirubin.total [Mass/volume] negative negative in Urine (test code = 1977-6) Ketones [Mass/volume] in Urine negative negative by Automated test strip (test code = 09725-1) Specific gravity of Urine by 1.008 1.003-1.030 Automated test strip (test code = 55992-3) blood urine (test code = blood negative negative urine) pH of Urine (test code = 5.500 5-9 2756-5) protein urine (UA) (test code = negative negative protein urine (UA)) Urobilinogen [Presence] in normal 0.2-1.0 Urine (test code = 63363-1) Nitrite [Presence] in Urine by negative negative Test strip (test code = 5802-4) Leukocyte esterase [Presence] negative negative in Urine by Automated test strip (test code = 92377-0) Erythrocytes [#/volume] in <1 0-5 Urine by Automated count (test code = 798-9) Leukocytes [#/area] in Urine <1 0-5 sediment by Automated count (test code = 28853-5) Epithelial cells [Presence] in <1 0-5 Urine sediment by Light microscopy (test code = 46381-0) Bacteria identified in Urine by none detected none detect Culture (test code = 630-4) Casts [#/area] in Urine =2-5 none detect sediment by Automated count (test code = 09113-0) urine culture added? (test code no = urine culture added?) [facility] - [id number] 04:45:00 Test Item Value Reference Range Interpretation Comments Color of Urine by Auto (test colorless code = 36633-7) Appearance of Urine (test code clear clear = 5767-9) Glucose [Presence] in Urine by negative negative Automated test strip (test code = 92112-8) Bilirubin.total [Mass/volume] negative negative in Urine (test code = 1978-6) Ketones [Mass/volume] in Urine negative negative by Automated test strip (test code = 03383-8) Specific gravity of Urine by 1.008 1.003-1.030 Automated test strip (test code = 91683-6) blood urine (test code = blood negative negative urine) pH of Urine (test code = 5.500 5-9 2756-5) protein urine (UA) (test code = negative negative protein urine (UA)) Urobilinogen [Presence] in normal 0.2-1.0 Urine (test code = 25043-4) Nitrite [Presence] in Urine by negative negative Test strip (test code = 5802-4) Leukocyte esterase [Presence] negative negative in Urine by Automated test strip (test code = 69896-2) Erythrocytes [#/volume] in <1 0-5 Urine by Automated count (test code = 798-9) Leukocytes [#/area] in Urine <1 0-5 sediment by Automated count (test code = 32412-0) Epithelial cells [Presence] in <1 0-5 Urine sediment by Light microscopy (test code = 09667-8) Bacteria identified in Urine by none detected none detect Culture (test code = 630-4) Casts [#/area] in Urine =2-5 none detect sediment by Automated count (test code = 88063-3) urine culture added? (test code no = urine culture added?) [facility] Differential panel - [id number] 09:37:00 Test Item Value Reference Range Interpretation Comments white blood count (test code = 6.7 K/uL 4.0-11.5 white blood count) red blood count (test code = red 2.27 M/uL 3.80-5.20 L blood count) hemoglobin (test code = 7.2 g/dL 10.5-15.7 hemoglobin) hematocrit (test code = 23.1 % 34.0-50.0 hematocrit) MCV [Entitic volume] (test code = 101.8 fL 86-100 H 65627-7) mean corpuscular hemoglobin (test 31.7 pg 26.2-33.4 [...] 44.4-80.1 leukocytes in Blood (test code = 41399-1) Immature granulocytes [#/volume] 0.0 K/uL 0.0-0.03 in Blood (test code = 66204-7) lymphocyte% (test code = 19.0 % 10.0-50.0 lymphocyte%) mono % (test code = mono %) 5.2 % 3.6-12.0 eos % (test code = eos %) 0.4 % 0.0-5.4 Basophils/100 leukocytes in 0.3 % 0.1-1.2 Unspecified specimen (test code = 58165-9) Band form neutrophils [#/volume] 4.98 K/uL 1.56-6.13 in Blood (test code = 73684-1) Lymphocytes [#/volume] in 1.3 K/uL 1.18-3.74 Unspecified specimen by Automated count (test code = 07583-6) mono # (test code = mono #) 0.35 K/uL 0.24-0.86 eos # (test code = eos #) 0.03 K/uL 0.04-0.36 L basophil # (test code = basophil 0.02 K/uL 0.01-0.08 #) NRBC% (test code = NRBC%) 1 /100 WBC 0-0.2 H NRBC# (test code = NRBC#) 0 K/uL [facility] Auto Differential panel - [id number] 09:37:00 Test Item Value Reference Range Interpretation Comments white blood count (test code = 6.7 K/uL 4.0-11.5 white blood count) red blood count (test code = red 2.27 M/uL 3.80-5.20 L blood count) hemoglobin (test code = 7.2 g/dL 10.5-15.7 hemoglobin) hematocrit (test code = 23.1 % 34.0-50.0 hematocrit) MCV [Entitic volume] (test code = 101.8 fL 86-100 H 57954-8) mean corpuscular hemoglobin (test 31.7 pg 26.2-33.4 [...] 44.4-80.1 leukocytes in Blood (test code = 80116-5) Immature granulocytes [#/volume] 0.0 K/uL 0.0-0.03 in Blood (test code = 80460-1) lymphocyte% (test code = 19.0 % 10.0-50.0 lymphocyte%) mono % (test code = mono %) 5.2 % 3.6-12.0 eos % (test code = eos %) 0.4 % 0.0-5.4 Basophils/100 leukocytes in 0.3 % 0.1-1.2 Unspecified specimen (test code = 75518-5) Band form neutrophils [#/volume] 4.98 K/uL 1.56-6.13 in Blood (test code = 38048-4) Lymphocytes [#/volume] in 1.3 K/uL 1.18-3.74 Unspecified specimen by Automated count (test code = 06486-0) mono # (test code = mono #) 0.35 K/uL 0.24-0.86 eos # (test code = eos #) 0.03 K/uL 0.04-0.36 L basophil # (test code = basophil 0.02 K/uL 0.01-0.08 #) NRBC% (test code = NRBC%) 1 /100 WBC 0-0.2 H NRBC# (test code = NRBC#) 0 K/uL [facility] Auto Differential panel - [id number] 09:37:00 Test Item Value Reference Range Interpretation Comments white blood count (test code = 6.7 K/uL 4.0-11.5 white blood count) red blood count (test code = red 2.27 M/uL 3.80-5.20 L blood count) hemoglobin (test code = 7.2 g/dL 10.5-15.7 hemoglobin) hematocrit (test code = 23.1 % 34.0-50.0 hematocrit) MCV [Entitic volume] (test code = 101.8 fL 86-100 H 61931-3) mean corpuscular hemoglobin (test 31.7 pg 26.2-33.4 [...] 44.4-80.1 leukocytes in Blood (test code = 37444-3) Immature granulocytes [#/volume] 0.0 K/uL 0.0-0.03 in Blood (test code = 62482-4) lymphocyte% (test code = 19.0 % 10.0-50.0 lymphocyte%) mono % (test code = mono %) 5.2 % 3.6-12.0 eos % (test code = eos %) 0.4 % 0.0-5.4 Basophils/100 leukocytes in 0.3 % 0.1-1.2 Unspecified specimen (test code = 15110-6) Band form neutrophils [#/volume] 4.98 K/uL 1.56-6.13 in Blood (test code = 37620-9) Lymphocytes [#/volume] in 1.3 K/uL 1.18-3.74 Unspecified specimen by Automated count (test code = 37976-4) mono # (test code = mono #) 0.35 K/uL 0.24-0.86 eos # (test code = eos #) 0.03 K/uL 0.04-0.36 L basophil # (test code = basophil 0.02 K/uL 0.01-0.08 #) NRBC% (test code = NRBC%) 1 /100 WBC 0-0.2 H NRBC# (test code = NRBC#) 0 K/uL [facility] [Enzymatic activity/volume] in Serum or [id number] 05:20:00 Test Item Value Reference Range Interpretation Comments creatine kinase (test code = creatine 189 U/L 20-180 H kinase) [facility]roponin I.cardiac [Mass/volume] in [id number] 05:20:00 Test Item Value Reference Range Interpretation Comments cardiac troponin I (test code = cardiac <0.30 0.0-0.5 troponin I) [facility] kinase.MB [Mass/volume] in Serum or Plasma 2019-06-26 05:20:00 Test Item Value Reference Range Interpretation Comments mass creatinine kinase-mb (test 2.6 NG/mL 0.0-3.6 code = mass creatinine kinase-mb) [facility] Differential panel - [id number] 02:50:00 Test Item Value Reference Range Interpretation Comments white blood count (test code = 4.8 K/uL 4.0-11.5 white blood count) red blood count (test code = red 3.44 M/uL 3.80-5.20 L blood count) hemoglobin (test code = 11.0 g/dL 10.5-15.7 hemoglobin) hematocrit (test code = 34.4 % 34.0-50.0 hematocrit) Erythrocyte mean corpuscular 100.0 fL 86-100 volume [Entitic volume] (test code = 36743-8) mean corpuscular hemoglobin (test 32.0 pg 26.2-33.4 [...] 44.4-80.1 leukocytes in Blood (test code = 29943-7) Granulocytes Immature [#/volume] 0.0 K/uL 0.0-0.03 in Blood (test code = 98012-3) lymphocyte% (test code = 19.7 % 10.0-50.0 lymphocyte%) mono % (test code = mono %) 9.5 % 3.6-12.0 eos % (test code = eos %) 1.7 % 0.0-5.4 Basophils/100 leukocytes in 0.2 % 0.1-1.2 Unspecified specimen (test code = 84289-2) Neutrophils.band form [#/volume] 3.32 K/uL 1.56-6.13 in Blood (test code = 00535-5) Lymphocytes [#/volume] in 1.0 K/uL 1.18-3.74 L Unspecified specimen by Automated count (test code = 79478-4) mono # (test code = mono #) 0.46 K/uL 0.24-0.86 eos # (test code = eos #) 0.08 K/uL 0.04-0.36 basophil # (test code = basophil 0.01 K/uL 0.01-0.08 #) NRBC% (test code = NRBC%) 0 /100 WBC 0-0.2 NRBC# (test code = NRBC#) 0 K/[facility]L [facility] [id number] 02:50:00 NeutrophilsBandLymphocyteAtypical LymphMonocyteEosinophilBasophilMetamyelocytePlatelet EstimatePlatelet MorphologyHypochromasiaAnisocytosisMacrocytosisToxic GranulationToxic VacuolationMataAlliance HospitalPT/[id number] 02:50:00 Test Item Value Reference Range Interpretation Comments prothrombin time (test code = 9.5 seconds 10.3-12.3 L prothrombin time) INR in Blood by Coagulation assay 0.90 (test code = 65245-0) [facility] [id number] 02:50:00 Test Item Value Reference Range Interpretation Comments INR in Blood by Coagulation 24.8 seconds 22.5-37.0 assay (test code = 30965-6) [facility] - Serum or Plasma [...] Serum or Plasma (test code = 6768-6) [facility]ine kinase [Enzymatic activity/volume] in Serum or [id number] 02:50:00 Test Item Value Reference Range Interpretation Comments creatine kinase (test code = creatine 187 U/L 20-180 H kinase) [facility]adaNatriuretic peptide.B prohormone N-Terminal [Mass/volume] in Serum or [id number] 02:50:00 Test Item Value Reference Range Interpretation Comments N-term pro natriuretic peptide 171 pg/mL 0-125 H (test code = N-term pro natriuretic peptide) [facility].cardiac [Mass/volume] in [id number] 02:50:00 Test Item Value Reference Range Interpretation Comments cardiac troponin I (test code = cardiac <0.30 0.0-0.5 troponin I) [facility] kinase.MB [Mass/volume] in Serum or Plasma 2019-06-26 02:50:00 Test Item Value Reference Range Interpretation Comments mass creatinine kinase-mb (test 2.6 NG/mL 0.0-3.6 code = mass creatinine kinase-mb) [facility] Differential panel - [id number] 02:50:00 Test Item Value Reference Range Interpretation Comments white blood count (test code = 4.8 K/uL 4.0-11.5 white blood count) red blood count (test code = red 3.44 M/uL 3.80-5.20 L blood count) hemoglobin (test code = 11.0 g/dL 10.5-15.7 hemoglobin) hematocrit (test code = 34.4 % 34.0-50.0 hematocrit) Erythrocyte mean corpuscular 100.0 fL 86-100 volume [Entitic volume] (test code = 93501-9) mean corpuscular hemoglobin (test 32.0 pg 26.2-33.4 [...] 44.4-80.1 leukocytes in Blood (test code = 94284-6) Granulocytes Immature [#/volume] 0.0 K/uL 0.0-0.03 in Blood (test code = 46813-6) lymphocyte% (test code = 19.7 % 10.0-50.0 lymphocyte%) mono % (test code = mono %) 9.5 % 3.6-12.0 eos % (test code = eos %) 1.7 % 0.0-5.4 Basophils/100 leukocytes in 0.2 % 0.1-1.2 Unspecified specimen (test code = 38084-6) Neutrophils.band form [#/volume] 3.32 K/uL 1.56-6.13 in Blood (test code = 58570-5) Lymphocytes [#/volume] in 1.0 K/uL 1.18-3.74 L Unspecified specimen by Automated count (test code = 89413-5) mono # (test code = mono #) 0.46 K/uL 0.24-0.86 eos # (test code = eos #) 0.08 K/uL 0.04-0.36 basophil # (test code = basophil 0.01 K/uL 0.01-0.08 #) NRBC% (test code = NRBC%) 0 /100 WBC 0-0.2 NRBC# (test code = NRBC#) 0 K/uL [facility], [id number] 02:50:00 NeutrophilsBandLymphocyteAtypical LymphMonocyteEosinophilBasophilMetamyelocytePlatelet EstimatePlatelet MorphologyHypochromasiaAnisocytosisMacrocytosisToxic GranulationToxic VacuolationMaJefferson Davis Community HospitalPT/[id number] 02:50:00 Test Item Value Reference Range Interpretation Comments prothrombin time (test code = 9.5 seconds 10.3-12.3 L prothrombin time) INR in Blood by Coagulation assay 0.90 (test code = 25536-1) [facility] [id number] 02:50:00 Test Item Value Reference Range Interpretation Comments INR in Blood by Coagulation 24.8 seconds 22.5-37.0 assay (test code = 68374-4) [facility] - Serum or Plasma [...] Serum or Plasma (test code = 6768-6) [facility] kinase [Enzymatic activity/volume] in Serum or [id number] 02:50:00 Test Item Value Reference Range Interpretation Comments creatine kinase (test code = creatine 187 U/L 20-180 H kinase) [facility]atriuretic peptide.B prohormone N-Terminal [Mass/volume] in Serum or [id number] 02:50:00 Test Item Value Reference Range Interpretation Comments N-term pro natriuretic peptide 171 pg/mL 0-125 H (test code = N-term pro natriuretic peptide) [facility]card[facility] [Mass/volume] in [id number] 02:50:00 Test Item Value Reference Range Interpretation Comments cardiac troponin I (test code = cardiac <0.30 0.0-0.5 troponin I) [facility] kinase.MB [Mass/volume] in Serum or Plasma 2019-06-26 02:50:00 Test Item Value Reference Range Interpretation Comments mass creatinine kinase-mb (test 2.6 NG/mL 0.0-3.6 code = mass creatinine kinase-mb) [facility] Differential panel - [id number] 12:30:00 Test Item Value Reference Range Interpretation Comments white blood count (test code = 5.8 K/uL 4.0-11.5 white blood count) red blood count (test code = red 3.64 M/uL 3.80-5.20 L blood count) hemoglobin (test code = 11.6 g/dL 10.5-15.7 hemoglobin) hematocrit (test code = 36.9 % 34.0-50.0 hematocrit) Erythrocyte mean corpuscular 101.4 fL 86-100 H volume [Entitic volume] (test code = 19301-7) mean corpuscular hemoglobin (test 31.9 pg 26.2-33.4 [...] 44.4-80.1 leukocytes in Blood (test code = 78389-6) Granulocytes Immature [#/volume] 0.0 K/uL 0.0-0.03 in Blood (test code = 03251-9) lymphocyte% (test code = 20.2 % 10.0-50.0 lymphocyte%) mono % (test code = mono %) 9.8 % 3.6-12.0 eos % (test code = eos %) 0.9 % 0.0-5.4 Basophils/100 leukocytes in 0.2 % 0.1-1.2 Unspecified specimen (test code = 01293-1) Neutrophils.band form [#/volume] 4.00 K/uL 1.56-6.13 in Blood (test code = 56242-4) Lymphocytes [#/volume] in 1.2 K/uL 1.18-3.74 Unspecified specimen by Automated count (test code = 02799-4) mono # (test code = mono #) 0.57 K/uL 0.24-0.86 eos # (test code = eos #) 0.05 K/uL 0.04-0.36 basophil # (test code = basophil 0.01 K/uL 0.01-0.08 #) NRBC% (test code = NRBC%) 0 /100 WBC 0-0.2 NRBC# (test code = NRBC#) 0 K/uL [facility], [id number] 12:30:00 NeutrophilsBandLymphocyteAtypical LymphMonocyteEosinophilBasophilPlatelet EstimatePlatelet MorphologyMacrocytosisUmmc GrenadaBasi metabolic 2000 panel - Serum or [id number] 12:30:00 Test Item Value Reference Range Interpretation [...] = calcium 8.5 mg/dL 8.8-10.2 L level) [facility] Differential panel - [id number] 12:30:00 Test Item Value Reference Range Interpretation Comments white blood count (test code = 5.8 K/uL 4.0-11.5 white blood count) red blood count (test code = red 3.64 M/uL 3.80-5.20 L blood count) hemoglobin (test code = 11.6 g/dL 10.5-15.7 hemoglobin) hematocrit (test code = 36.9 % 34.0-50.0 hematocrit) Erythrocyte mean corpuscular 101.4 fL 86-100 H volume [Entitic volume] (test code = 36056-9) mean corpuscular hemoglobin (test 31.9 pg 26.2-33.4 [...] 44.4-80.1 leukocytes in Blood (test code = 94510-6) Granulocytes Immature [#/volume] 0.0 K/uL 0.0-0.03 in Blood (test code = 81210-8) lymphocyte% (test code = 20.2 % 10.0-50.0 lymphocyte%) mono % (test code = mono %) 9.8 % 3.6-12.0 eos % (test code = eos %) 0.9 % 0.0-5.4 Basophils/100 leukocytes in 0.2 % 0.1-1.2 Unspecified specimen (test code = 24108-0) Neutrophils.band form [#/volume] 4.00 K/uL 1.56-6.13 in Blood (test code = 42466-5) Lymphocytes [#/volume] in 1.2 K/uL 1.18-3.74 Unspecified specimen by Automated count (test code = 97654-1) mono # (test code = mono #) 0.57 K/uL 0.24-0.86 eos # (test code = eos #) 0.05 K/uL 0.04-0.36 basophil # (test code = basophil 0.01 K/uL 0.01-0.08 #) NRBC% (test code = NRBC%) 0 /100 WBC 0-0.2 NRBC# (test code = NRBC#) 0 K/uL [facility], [id number] 12:30:00 NeutrophilsBandLymphocyteAtypical LymphMonocyteEosinophilBasophilPlatelet EstimatePlatelet MorphologyMacrocytosisUmmc GrenadaBasic metabolic 2000 panel - Serum or [id number] 12:30:00 Test Item Value Reference Range Interpretation [...] = calcium 8.5 mg/dL 8.8-10.2 L level) [facility] complete [facility] - [id number] 11:54:00 Test Item Value Reference Range Interpretation Comments Color of Urine by Auto light yellow (test code = 42300-3) Appearance of Urine (test clear clear code = 5767-9) Glucose [Presence] in negative negative Urine by Automated test strip (test code = 64048-3) Bilirubin.total negative negative [Mass/volume] in Urine (test code = 1978-6) Ketones [Mass/volume] in negative negative Urine by Automated test strip (test code = 58579-2) Specific gravity of Urine 1.025 1.003-1.030 by Automated test strip (test code = 35047-3) blood urine (test code = negative negative blood urine) pH of Urine (test code = 6.500 5-9 2756-5) protein urine (UA) (test negative negative code = protein urine (UA)) Urobilinogen [Presence] normal 0.2-1.0 in Urine (test code = 95593-4) Nitrite [Presence] in negative negative Urine by Test strip (test code = 5802-4) Leukocyte esterase negative negative [Presence] in Urine by Automated test strip (test code = 83161-2) Erythrocytes [#/volume] <1 0-5 in Urine by Automated count (test code = 798-9) Leukocytes [#/area] in <1 0-5 Urine sediment by Automated count (test code = 84092-9) Epithelial cells <1 0-5 [Presence] in Urine sediment by Light microscopy (test code = 09795-8) Bacteria identified in none detected none detect Urine by Culture (test code = 630-4) Casts [#/area] in Urine =11-14 none detect H sediment by Automated count (test code = 67355-7) urine culture added? no (test code = urine culture added?) path casts,U (test code = cellular casts (1-5 none detect A path casts,U) [facility] - [id number] 11:54:00 Test Item Value Reference Range Interpretation Comments Color of Urine by Auto light yellow (test code = 99603-8) Appearance of Urine (test clear clear code = 5767-9) Glucose [Presence] in negative negative Urine by Automated test strip (test code = 55169-1) Bilirubin.total negative negative [Mass/volume] in Urine (test code = 1978-6) Ketones [Mass/volume] in negative negative Urine by Automated test strip (test code = 25804-4) Specific gravity of Urine 1.025 1.003-1.030 by Automated test strip (test code = 62675-7) blood urine (test code = negative negative blood urine) pH of Urine (test code = 6.500 5-9 2756-5) protein urine (UA) (test negative negative code = protein urine (UA)) Urobilinogen [Presence] normal 0.2-1.0 in Urine (test code = 15723-4) Nitrite [Presence] in negative negative Urine by Test strip (test code = 5802-4) Leukocyte esterase negative negative [Presence] in Urine by Automated test strip (test code = 25254-1) Erythrocytes [#/volume] <1 0-5 in Urine by Automated count (test code = 798-9) Leukocytes [#/area] in <1 0-5 Urine sediment by Automated count (test code = 10421-5) Epithelial cells <1 0-5 [Presence] in Urine sediment by Light microscopy (test code = 66691-7) Bacteria identified in none detected none detect Urine by Culture (test code = 630-4) Casts [#/area] in Urine =11-14 none detect H sediment by Automated count (test code = 86036-5) urine culture added? no (test code = urine culture added?) path casts,U (test code = cellular casts (1-5 none detect A path casts,U) [facility] Differential panel - [id number] 09:30:00 Test Item Value Reference Range Interpretation Comments white blood count (test code = 5.6 K/uL 4.0-11.5 white blood count) red blood count (test code = red 3.98 M/uL 3.80-5.20 blood count) hemoglobin (test code = 12.7 g/dL 10.5-15.7 hemoglobin) hematocrit (test code = 39.8 % 34.0-50.0 hematocrit) Erythrocyte mean corpuscular 100.0 fL 86-100 volume [Entitic volume] (test code = 79635-4) mean corpuscular hemoglobin (test 31.9 pg 26.2-33.4 [...] 44.4-80.1 leukocytes in Blood (test code = 61887-1) Granulocytes Immature [#/volume] 0.0 K/uL 0.0-0.03 in Blood (test code = 97563-7) lymphocyte% (test code = 15.1 % 10.0-50.0 lymphocyte%) mono % (test code = mono %) 6.8 % 3.6-12.0 eos % (test code = eos %) 0.7 % 0.0-5.4 Basophils/100 leukocytes in 0.4 % 0.1-1.2 Unspecified specimen (test code = 01891-7) Neutrophils.band form [#/volume] 4.29 K/uL 1.56-6.13 in Blood (test code = 43355-5) Lymphocytes [#/volume] in 0.8 K/uL 1.18-3.74 L Unspecified specimen by Automated count (test code = 13102-3) mono # (test code = mono #) 0.38 K/uL 0.24-0.86 eos # (test code = eos #) 0.04 K/uL 0.04-0.36 basophil # (test code = basophil 0.02 K/uL 0.01-0.08 #) NRBC% (test code = NRBC%) 0 /100 WBC 0-0.2 NRBC# (test code = NRBC#) 0 K/uL [facility], [id number] 09:30:00 NeutrophilsBandLymphocyteAtypical LymphMonocyteEosinophilPlatelet EstimatePlatelet MorphologyMacrocytosisMatagoYalobusha General HospitalPT/[id number] 09:30:00 Test Item Value Reference Range Interpretation Comments prothrombin time (test code = 10.5 seconds 10.3-12.3 prothrombin time) INR in Blood by Coagulation 0.95 assay (test code = 42700-7) [facility] [id number] 09:30:00 Test Item Value Reference Range Interpretation Comments INR in Blood by Coagulation 23.4 seconds 22.5-37.0 assay (test code = 20164-0) [facility] - Serum or Plasma [...] Serum or Plasma (test code = 6768-6) [facility] GroupMagnesium [Moles/volume] in Unspecified specimen 2019-06-03 09:30:00 Test Item Value Reference Range Interpretation Comments magnesium level (test code = 1.8 mg/dL 1.6-2.4 magnesium level) [facility] GroupEthanol [Mass/volume] in Serum or [id number] 09:30:00 Test Item Value Reference Range Interpretation Comments alcohol level (test code = alcohol <10.1 0.00-10.1 level) [facility] [Enzymatic activity/volume] in Serum or [id number] 09:30:00 Test Item Value Reference Range Interpretation Comments creatine kinase (test code = creatine 150 U/L 20-180 kinase) [facility]adaNatriuretic peptide.B prohormone N-Terminal [Mass/volume] in Serum or [id number] 09:30:00 Test Item Value Reference Range Interpretation Comments N-term pro natriuretic peptide 200 pg/mL 0-125 H (test code = N-term pro natriuretic peptide) [facility] I.cardiac [Mass/volume] in [id number] 09:30:00 Test Item Value Reference Range Interpretation Comments cardiac troponin I (test code = cardiac <0.30 0.0-0.5 troponin I) [facility] kinase.MB [Mass/volume] in Serum or Plasma 2019-06-03 09:30:00 Test Item Value Reference Range Interpretation Comments mass creatinine kinase-mb (test 2.3 NG/mL 0.0-3.6 code = mass creatinine kinase-mb) [facility] GroupMyoglobin [Mass/volume] in Serum or [id number] 09:30:00 Test Item Value Reference Range Interpretation Comments myoglobin (test code = myoglobin) 37 NG/mL -58 [facility] Differential panel - [id number] 09:30:00 Test Item Value Reference Range Interpretation Comments white blood count (test code = 5.6 K/uL 4.0-11.5 white blood count) red blood count (test code = red 3.98 M/uL 3.80-5.20 blood count) hemoglobin (test code = 12.7 g/dL 10.5-15.7 hemoglobin) hematocrit (test code = 39.8 % 34.0-50.0 hematocrit) Erythrocyte mean corpuscular 100.0 fL 86-100 volume [Entitic volume] (test code = 92370-9) mean corpuscular hemoglobin (test 31.9 pg 26.2-33.4 [...] 44.4-80.1 leukocytes in Blood (test code = 44123-1) Granulocytes Immature [#/volume] 0.0 K/uL 0.0-0.03 in Blood (test code = 58567-8) lymphocyte% (test code = 15.1 % 10.0-50.0 lymphocyte%) mono % (test code = mono %) 6.8 % 3.6-12.0 eos % (test code = eos %) 0.7 % 0.0-5.4 Basophils/100 leukocytes in 0.4 % 0.1-1.2 Unspecified specimen (test code = 17863-9) Neutrophils.band form [#/volume] 4.29 K/uL 1.56-6.13 in Blood (test code = 85553-6) Lymphocytes [#/volume] in 0.8 K/uL 1.18-3.74 L Unspecified specimen by Automated count (test code = 05421-5) mono # (test code = mono #) 0.38 K/uL 0.24-0.86 eos # (test code = eos #) 0.04 K/uL 0.04-0.36 basophil # (test code = basophil 0.02 K/uL 0.01-0.08 #) NRBC% (test code = NRBC%) 0 /100 WBC 0-0.2 NRBC# (test code = NRBC#) 0 K/uL [facility], [id number] 09:30:00 NeutrophilsBandLymphocyteAtypical LymphMonocyteEosinophilPlatelet EstimatePlatelet MorphologyMacrocytosisMaJefferson Davis Community HospitalPT/[id number] 09:30:00 Test Item Value Reference Range Interpretation Comments prothrombin time (test code = 10.5 seconds 10.3-12.3 prothrombin time) INR in Blood by Coagulation 0.95 assay (test code = 57444-6) [facility] [id number] 09:30:00 Test Item Value Reference Range Interpretation Comments INR in Blood by Coagulation 23.4 seconds 22.5-37.0 assay (test code = 04453-4) [facility] 2000 [facility] - Serum or Plasma [...] Serum or Plasma (test code = 6768-6) [facility] GroupMagnesium [Moles/volume] in Unspecified specimen 2019-06-03 09:30:00 Test Item Value Reference Range Interpretation Comments magnesium level (test code = 1.8 mg/dL 1.6-2.4 magnesium level) [facility] GroupEthanol [Mass/volume] in Serum or [id number] 09:30:00 Test Item Value Reference Range Interpretation Comments alcohol level (test code = alcohol <10.1 0.00-10.1 level) [facility] GroupCreatine kinase [Enzymatic activity/volume] in Serum or [id number] 09:30:00 Test Item Value Reference Range Interpretation Comments creatine kinase (test code = creatine 150 U/L 20-180 kinase) [facility]Natriuretic peptide.B prohormone N-Terminal [Mass/volume] in Serum or [id number] 09:30:00 Test Item Value Reference Range Interpretation Comments N-term pro natriuretic peptide 200 pg/mL 0-125 H (test code = N-term pro natriuretic peptide) [facility] I.cardiac [Mass/volume] in [id number] 09:30:00 Test Item Value Reference Range Interpretation Comments cardiac troponin I (test code = cardiac <0.30 0.0-0.5 troponin I) [facility]Creat[facility] kinase.MB [Mass/volume] in Serum or Plasma 2019-06-03 09:30:00 Test Item Value Reference Range Interpretation Comments mass creatinine kinase-mb (test 2.3 NG/mL 0.0-3.6 code = mass creatinine kinase-mb) [facility]adaMyoglobin [Mass/volume] in Serum or [id number] 09:30:00 Test Item Value Reference Range Interpretation Comments myoglobin (test code = myoglobin) 37 NG/mL -58 [facility] complete [facility] - [id number] 05:40:00 Test Item Value Reference Range Interpretation Comments Color of Urine by Auto yellow (test code = 21189-3) Appearance of Urine (test SL cloudy clear A code = 5767-9) Glucose [Presence] in Urine negative negative by Automated test strip (test code = 05443-6) Bilirubin.total negative negative [Mass/volume] in Urine (test code = 1978-6) Ketones [Mass/volume] in =1 negative H Urine by Automated test strip (test code = 97780-9) Specific gravity of Urine 1.022 1.003-1.030 by Automated test strip (test code = 19261-0) blood urine (test code = trace negative blood urine) pH of Urine (test code = 7.000 5-9 2756-5) protein urine (UA) (test =1+ (30 negative H code = protein urine (UA)) Urobilinogen [Presence] in =2.0 0.2-1.0 H Urine (test code = 14768-9) Nitrite [Presence] in Urine positive negative H by Test strip (test code = 5802-4) Leukocyte esterase =4 negative H [Presence] in Urine by Automated test strip (test code = 76639-3) Erythrocytes [#/volume] in =6-10 0-5 H Urine by Automated count (test code = 798-9) Leukocytes [#/area] in =11-14 0-5 H Urine sediment by Automated count (test code = 12083-7) Epithelial cells [Presence] =11-25 0-5 H in Urine sediment by Light microscopy (test code = 70548-7) Bacteria identified in trace none detect Urine by Culture (test code = 630-4) Casts [#/area] in Urine =2-5 none detect sediment by Automated count (test code = 17428-8) urine culture added? (test no. contaminated. code = urine culture added?) [facility] identified in Urine by [id number] 05:40:00Bacteria Ur CultUmmc GrenadaPT/[id number] 05:17:00 Test Item Value Reference Range Interpretation Comments prothrombin time (test code = 9.9 seconds 10.3-12.3 L prothrombin time) INR in Blood by Coagulation assay 0.94 (test code = 62053-9) [facility] [id number] 05:17:00 Test Item Value Reference Range Interpretation Comments INR in Blood by Coagulation 24.3 seconds 22.5-37.0 assay (test code = 20657-6) [facility] Differential panel - [id number] 05:17:00 Test Item Value Reference Range Interpretation Comments white blood count (test 5.6 K/uL 4.0-11.5 code = white blood count) red blood count (test 4.89 M/uL 3.80-5.20 code = red blood count) Hemoglobin [Mass/volume] 15.0 g/dL 10.5-15.7 in Blood (test code = 718-7) hematocrit (test code = 47.9 % 34.0-50.0 hematocrit) Erythrocyte mean 97.9 fL 78-98 corpuscular volume [Entitic volume] (test code = 85027-3) Erythrocyte mean 30.6 pg 26.2-33.4 corpuscular hemoglobin [Entitic mass] (test code = 42562-2) mean corpuscular HGB 31.3 g/dL 31.5-36.2 L conc (test code = mean corpuscular HGB conc) red cell distribution 13.3 % 11.5-15.5 width (test code = red cell distribution width) Platelets [#/volume] in 283 K/uL 137-338 Blood (test code = 61105-3) Platelet mean volume 6.8 fL 8.4-11.8 L [Entitic volume] in Blood (test code = 13681-0) Neutrophils.band 68.6 % 44.4-80.1 form/100 leukocytes in Blood (test code = 90863-8) Lymphocytes/100 20.7 % 10.0-50.0 leukocytes in Body fluid (test code = 03590-0) Monocytes/100 leukocytes 9.2 % 3.6-12.04 in Blood by Automated count (test code = 5905-5) Eosinophils/100 0.4 % 0.0-5.41 leukocytes in Blood by Automated count (test code = 713-8) Basophils/100 leukocytes 1.1 % 0.0-0.79 H in Blood by Automated count (test code = 706-2) Platelet morphology hypersegmented polys normal RBC. finding [Identifier] in Blood (test code = 25216-4) [facility], [id number] 05:17:00 NeutrophilsBandLymphocyteAtypical LymphMonocyteEosinophilBasophilMyelocytePlatelet EstimatePlatelet M orphologyHypersegmented PolysToxic VacuolationSmudge CellsMaJefferson Davis Community HospitalComprehensive metabolic 2000 panel - Serum or [id number] 05:17:00 Test Item Value Reference Range Interpretation [...] Serum or Plasma (test code = 6768-6) [facility] kinase [Enzymatic activity/volume] in Serum or [id number] 05:17:00 Test Item Value Reference Range Interpretation Comments creatine kinase (test code = creatine 246 U/L 20-180 H kinase) [facility]adaTroponin I.cardiac [Mass/volume] in [id number] 05:17:00 Test Item Value Reference Range Interpretation Comments cardiac troponin I (test code = cardiac <0.30 0.0-0.5 troponin I) [facility]adaCreatine kinase.MB [Mass/volume] in Serum or Plasma 2018-10-09 05:17:00 Test Item Value Reference Range Interpretation Comments mass creatinine kinase-mb (test 3.9 NG/mL 0.0-3.6 H code = mass creatinine kinase-mb) [facility]
--- NOTE | 2021-04-06 14:58 | RAD REPORT ---
EXAM DESCRIPTION: CT - CTHCSPWOC - 04/06/2021 2:42 pm CLINICAL HISTORY: Trauma, head and neck injury. PAIN COMPARISON: Head C Spine Mpr Wo Con dated 02/15/2021 TECHNIQUE: Axial 5 mm thick images of the head were obtained. Axial 2 mm thick images of the cervical spine were obtained with sagittal and coronal reconstruction images generated and reviewed. All CT scans are performed using dose optimization technique as appropriate and may include automated exposure control or mA/KV adjustment according to patient size. FINDINGS: CT HEAD WITHOUT CONTRAST: No acute hemorrhage, hydrocephalus or extra-axial collection is identified.No areas of brain edema or midline shift. Right frontal scalp injury. The paranasal sinuses and mastoids are clear.The calvarium is intact. CT CERVICAL SPINE WITHOUT CONTRAST: No fracture or subluxation.No prevertebral soft tissues swelling is identified. Mild multilevel cervi marielle spondylosis. Debris and circumferential thickening of the esophagus proximally. IMPRESSION: No acute intracranial or cervical spine findings. There is debris and questionable proximal esophageal wall thickening. Consider endoscopy for further evaluation.
--- NOTE | 2021-04-06 15:04 | RAD REPORT ---
EXAM DESCRIPTION: CT - CTFB CLINICAL HISTORY: FACIAL PAIN COMPARISON: No comparisons TECHNIQUE: Axial 2 mm thick images of the face were obtained with sagittal and coronal reconstructio n images. All CT scans are performed using dose optimization technique as appropriate and may include automated exposure control or mA/KV adjustment according to patient size. FINDINGS: No acute facial bone fracture is seen.The mandible is intact. Right cheek hematoma. The globes and orbital contents are grossly unremarkable.The paranasal sinuses and mastoids are clear . IMPRESSION: Negative for facial bone fracture.
--- NOTE | 2021-04-06 15:08 | EDPHYS ---
Physician Documentation [facility] Name: Kyler Rushing Age: 75 yrs Sex: Female : 1945 Arrival Date: 04/06/2021 Time: 14:13 Bed DIS2 Private MD: ED Physician Nigel Rodriguez HPI: 04/06 14:42 This 75 yrs old Black Female presents to ER via EMS with complaints of Fall Injury. kb 14:42 Details of fall: The patient fell from seated position, out of a chair. Onset: The kb symptoms/episode began/occurred just prior to arrival. Associated injuries: The patient sustained injury to the head, hematoma, right knee, abrasion. Severity of symptoms: At their worst the symptoms were moderate, in the emergency department the symptoms are unchanged. The patient has not experienced similar symptoms in the past. The patient has not recently seen a physician. Patient was sitting in chair at home leaned forward and fell hitting face on the floor. Denies LOC, nausea vomiting, headache, dizziness, lightheadedness.. Historical: - Home Meds: 14:25 atorvastatin 40 mg Oral tab 1 tab nightly [Active]; esomeprazole magnesium 40 mg Oral iw cpDR 1 cap once daily [Active]; isosorbide mononitrate 30 mg Oral Tb24 1 tab once daily [Active]; levothyroxine 200 mcg tab 1 tab once daily [Active]; metformin 500 mg Oral Tb24 1 tab once daily [Active]; Plavix 75 mg Oral tab 1 tab once daily [Active]; - PMHx: 14:25 CVA; left sided weakness; Diabetes - IDDM; High Cholesterol; Hypertension; iw - Immunization history:: Adult Immunizations unknown. - Social history:: Smoking status: Patient denies any tobacco usage or history of. ROS: 14:40 Constitutional: Negative for fever, chills, and weight loss. kb 14:40 Skin: Positive for hematoma, of the right cheek. 14:40 All other systems are negative. Exam: 14:40 Constitutional: This is a well developed, well nourished patient who is awake, alert, kb and in no acute distress. ENT: Moist Mucous membranes Cardiovascular: Regular rate and rhythm with a normal S1 and S2. No gallops, murmurs, or rubs. No pulse deficits. Respiratory: Respirations even and unlabored. No increased work of breathing, no retractions or nasal flaring. Abdomen/GI: Soft, non-tender. No distention MS/ Extremity: Pulses equal, no cyanosis. Neurovascular intact. Full, normal range of motion. Neuro: Awake and alert, GCS 15, oriented to person, place, time, and situation. Moves all extremities. Normal gait. Psych: Awake, alert, with orientation to person, place and time. Behavior, mood, and affect are within normal limits. 14:40 Head/face: Noted is no obvious of injury or deformity except hematoma, that is moderate, of the right cheek. 14:40 Skin: injury, abrasion(s), moderate sized abrasion noted, of the right knee. Vital Signs: 15:10 BP 148 / 74; Pulse 89; Resp 16; Temp 98.2; Pulse Ox 98% on R/A; iw MDM: 14:15 Patient medically screened. kb 14:42 Data reviewed: vital signs, nurses notes. Data interpreted: Pulse oximetry: on room air kb is 100 %. Interpretation: normal. 15:06 Counseling: I had a detailed discussion with the patient and/or guardian regarding: the kb historical points, exam findings, and any diagnostic results supporting the discharge/admit diagnosis, radiology results, the need for outpatient follow up, a family practitioner, to return to the emergency department if symptoms worsen or persist or if there are any questions or concerns that arise at home. 04/06 14:15 Order name: CT Head C Spine; Complete Time: 14:59 kb 04/06 14:15 Order name: CT Facial Bones W/O Con; Complete Time: 15:06 kb Administered Medications: No medications were administered Disposition: 04/07 06:27 Co-signature as Attending Physician, Nigel Rodriguez MD I agree with the assessment and trina plan of care. Disposition Summary: 04/06/21 15:08 Discharge Ordered Location: Home kb Condition: Stable kb Diagnosis - Hematoma of cheek kb - Abrasion of lower leg - right knee kb Followup: kb - With: Emergency Department - When: As needed - Reason: Worsening of condition Followup: kb - With: Private Physician - When: 2 - 3 days - Reason: Recheck today's complaints, Continuance of care, Re-evaluation by your physician Discharge Instructions: - Discharge Summary Sheet kb - Hematoma, [id number] kb - Abrasion, [id number] kb - Fall Prevention in the Home, Adult, [id number] kb Forms: - Medication Reconciliation Form kb - Thank You Letter kb - Antibiotic Education kb - Prescription Opioid Use kb Signatures: Dispatcher [employer] Libby Jaramillo, [employer] ALESSANDRA-Nigel Burton MD MD cha Williams, Irene, RN RN iw Corrections: (The following items were deleted from the chart) 04/06 14:25 14:25 Home Meds: atorvastatin 40 mg Oral tab 1 tab nightly; iw 14: 14:25 Home Meds: atorvastatin 40 mg Oral tab 1 tab nightly; iw iw 14: 14:25 Home Meds: atorvastatin 40 mg Oral tab 1 tab nightly; iw iw
--- NOTE | 2021-04-06 15:08 | ER ---
Nurse's Notes [facility] Name: Kyler Rushing Age: 75 yrs Sex: Female : 1945 Arrival Date: 04/06/2021 Time: 14:13 Bed DIS2 Private MD: Diagnosis: Hematoma of cheek;Abrasion of lower leg-right knee Presentation: 04/06 14:15 Chief complaint: EMS states: slid out of her chair, landed face down, has hematoma to iw right side of face, denies LOC, also has an abrasion to right knee, pt is supposed to use her walker to stand. 14:15 Acuity: TOVA 4 iw 14:15 Method Of Arrival: EMS: [facility] iw 14:17 Coronavirus screen: At this time, the client does not indicate any symptoms associated iw with coronavirus-19. Ebola Screen: Patient negative for fever greater than or equal to 101.5 degrees Fahrenheit, and additional compatible Ebola Virus Disease symptoms Patient denies exposure to infectious person. Patient denies travel to an Ebola-affected area in the 21 days before illness onset. No symptoms or risks identified at this time. Risk Assessment: Do you want to hurt yourself or someone else? Patient reports no desire to harm self or others. Onset of symptoms was April 06, 2021. 14:30 Initial Sepsis Screen: Does the patient meet any 2 criteria? No. Patient's initial iw sepsis screen is negative. Does the patient have a suspected source of infection? No. Patient's initial sepsis screen is negative. Triage Assessment: 14:30 General: Appears in no apparent distress. Behavior is calm, cooperative. iw Historical: - Home Meds: 14:25 atorvastatin 40 mg Oral tab 1 tab nightly [Active]; esomeprazole magnesium 40 mg Oral iw cpDR 1 cap once daily [Active]; isosorbide mononitrate 30 mg Oral Tb24 1 tab once daily [Active]; levothyroxine 200 mcg tab 1 tab once daily [Active]; metformin 500 mg Oral Tb24 1 tab once daily [Active]; Plavix 75 mg Oral tab 1 tab once daily [Active]; - PMHx: 14:25 CVA; left sided weakness; Diabetes - IDDM; High Cholesterol; Hypertension; iw - Immunization history:: Adult Immunizations unknown. - Social history:: Smoking status: Patient denies any tobacco usage or history of. Screenin:45 Abuse screen: Denies threats or abuse. Denies injuries from another. Nutritional iw screening: No deficits noted. Tuberculosis screening: No symptoms or risk factors identified. Fall Risk Fall in past 12 months (25 points). Assessment: 14:30 General: Appears in no apparent distress. Behavior is calm, cooperative. Pain: iw Complains of pain in right cheek and right leg and right knee. Neuro: Level of Consciousness is awake, alert, obeys commands, Oriented to person, place, time, situation, Moves all extremities. Respiratory: Respiratory effort is even, unlabored. Derm: Musculoskeletal: Range of motion: intact in all extremities. 15:44 Reassessment: Patient appears in no apparent distress at this time. Patient and/or iw family updated on plan of care and expected duration. Pain level reassessed. Patient is alert, oriented x 3, equal unlabored respirations, skin warm/dry/pink. Vital Signs: 15:10 BP 148 / 74; Pulse 89; Resp 16; Temp 98.2; Pulse Ox 98% on R/A; iw ED Course: 14:13 Patient arrived in ED. iw 14:15 Sarina Boateng RN is Primary Nurse. iw 14:15 Libby Rushing [facility]C [facility]. kb 14:15 Nigel Rodriguez MD is Attending Physician. kb 14:16 Triage completed. iw 14:30 Arm band placed on right wrist. iw 14:30 Patient has correct armband on for positive identification. iw 14:42 CT Head C Spine In Process Unspecified. EDMS 14:43 CT Facial Bones W/O Con In Process Unspecified. EDMS 15:44 No provider procedures requiring assistance completed. Patient did not have IV access iw during this emergency room visit. Administered Medications: No medications were administered Outcome: 15:08 Discharge ordered by MD. kb 15:52 Discharged to home via wheelchair, with family. iw 15:52 Condition: good 15:52 Discharge instructions given to patient, family, Instructed on discharge instructions, follow up and referral plans. Demonstrated understanding of instructions, follow-up care. 15:53 Patient left the ED. iw Signatures: Dispatcher [employer] EDMS Libby Rushing FNP-C FNP-Sarina Flores RN RN iw Corrections: (The following items were deleted from the chart) 14: Home Meds: atorvastatin 40 mg Oral tab 1 tab nightly; iw iw 14: Home Meds: atorvastatin 40 mg Oral tab 1 tab nightly; iw iw 14: Home Meds: atorvastatin 40 mg Oral tab 1 tab nightly; iw iw
[2021-04-06] MEDS ORDERED: ASCORBIC ACID 500 MG TABLET ONE (17:02)
[2021-04-06 22:53] VITALS: BP 148/74; TEMP 98.2; O2SAT 98
== END 2021-04-06 15:53 | disposition home or self-care (01) ==
LOC: ER 14:06
DX: S00.83XA Contusion of other part of head, initial encounter (principal); S80.211A Abrasion, right knee, initial encounter; W07.XXXA Fall from chair, initial encounter; Y92.009 Unspecified place in unspecified non-institutional (private) residence as the place of occurrence of the external cause; E11.9 Type 2 diabetes mellitus without complications; I69.354 Hemiplegia and hemiparesis following cerebral infarction affecting left non-dominant side; I10 Essential (primary) hypertension
CPT/HCPCS: 70450; 70486; 72125; 76377; 99283

== ENCOUNTER 2021-07-31 11:04 | Observation (INO) | payer MEDICARE ==
--- OUTSIDE RECORDS SUMMARY | 2021-07-31 11:12 | XMS REPORT | Continuity of Care Document ---
:1945 Author Organization [facility] t Address [address] [place] [address] Care Team Providers Name Role Phone Erica_Lorene Attending Clinician Unavailable Doctor Unassigned, Name Attending Clinician Unavailable DENISE Attending Clinician Unavailable Erica_Lornee Admitting Clinician Unavailable Payers Payer Name Policy Type Policy Number Effective Date Expiration Date S jose antonio [employer] - MEDICARE [id number] COMPLETE (MEDICARE REPLACEMENT HMO) [employer]ET[employer] [id number] 2020 00:00:00 MEDICARE B-[place]: [id number] 2011 [employer] 00:00:00 Problems Condition Condition Condition Status Onset Resolution Last Treating Co mments Source Name Details Category Date Date Treatment Clinician Date Dementia Dementia Problem Active [facility] 6 da 00:00: Medical 00 Group Hypothyroi Hypothyroi Problem Active M [facility] dism dism 7 da 00:00: Medical 00 Group Type 2 [...] of Kidney 00:00: Medi marielle 00 Group Angina Angina Disease Active 2004-09 Overview: Univer s pectoris pectoris 0-27 Formattin ity of 00:00: g of this [place] note Medical might be Branch different from the original. 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 Social History Social Habit Start Date Stop Date Quantity Comments Source Sex Assigned At [birth year] [facility] 00:00:00 00:00:00 Medical Branch Smoking Status Start Date Stop Date Source Unknown if ever smoked [facility] [place] Former Smoker [facility] Medications Ordered Filled Start [...] 40 mg in 40 mg da tablet TAKE tablet TAKE tablet Medical ONE (1) ONE (1) TAKE ONE Group TABLET(S) TABLET(S) (1) BY MOUTH BY MOUTH TABLET(S) EVERY DAY. EVERY DAY. BY MOUTH EVERY DAY. BD BD No BD [place] Ultra-Fine Ultra-Fine Ultra-Fine da Short Pen Short Pen Short Pen Medical Needle 31 Needle 31 Needle 31 Group gauge x gauge x gauge x 5/16" USE /16" USE 5/16" USE ONCE A DAY ONCE A DAY ONCE A DAY DIRECTED. DIRECTED. DIRECTED. clopidogrel clopidogrel No clopidogre [place] 75 mg 75 mg l 75 mg da tablet TAKE tablet TAKE tablet Medical ONE (1) ONE (1) TAKE ONE Group TABLET(S) TABLET(S) (1) BY MOUTH BY MOUTH TABLET(S) ONCE A DAY. ONCE A DAY. BY MOUTH ONCE A DAY. esomeprazol esomeprazol No esomeprazo [place] e magnesium e magnesium le d a 40 mg 40 mg magnesium Medical capsule,del capsule,del 40 mg Group ayed ayed capsule,de release release layed TAKE ONE TAKE ONE release (1) (1) TAKE ONE CAPSULE(S) CAPSULE(S) (1) BY MOUTH BY MOUTH CAPSULE(S) ONCE A DAY. ONCE A DAY. BY MOUTH ONCE A DAY. famotidine famotidine No famotidine [place] 20 mg 20 mg 20 mg da tablet TAKE tablet TAKE tablet [...] A DAY. BY MOUTH ONCE A DAY. hydroxyzine hydroxyzine No 1 Q1D hydroxyzin [place] HCl 25 mg HCl 25 mg e HCl 25 d a tablet Take tablet Take mg tablet Medical 1 tablet 1 tablet Take 1 Group every day every day tablet by oral by oral every day route for 1 route for 1 by oral day. day. route for 1 day. hydroxyzine hydroxyzine No hydroxyzin [place] pamoate 25 pamoate 25 e pamoate da mg capsule mg capsule 25 mg Me dical TAKE ONE TAKE ONE capsule Grou p (1) (1) TAKE ONE CAPSULE(S) CAPSULE(S) (1) BY MOUTH BY MOUTH CAPSULE(S) ONCE A DAY ONCE A DAY BY MOUTH AT BEDTIME. AT BEDTIME. ONCE A DAY AT BEDTIME. isosorbide isosorbide No isosorbide [place] mononitrate mononitrate mononitrat da ER 30 mg ER 30 mg e ER 30 mg M edical tablet,exte tablet,exte tablet,ext Group nded nded ended release 24 release 24 release 24 hr TAKE ONE hr TAKE ONE hr TAKE (1) (1) ONE (1) TABLET(S) TABLET(S) TABLET(S) BY MOUTH BY MOUTH BY MOUTH ONCE A DAY. ONCE A DAY. ONCE A DAY. Levemir Levemir No Levemir [facility] FlexTouch FlexTouch FlexTouch da U-100 U-100 U-100 Medical Insulin 100 Insulin 100 Insulin Group unit/mL (3 unit/mL (3 100 mL) mL) unit/mL (3 subcutaneou subcutaneou mL) s pen s pen subcutaneo INJECT TEN INJECT TEN us pen (10) UNITS (10) UNITS INJECT TEN SUBCUTANEOU SUBCUTANEOU (10) UNITS SLY ONCE A SLY ONCE A SUBCUTANEO DAY AT DAY AT USLY ONCE BEDTIME. BEDTIME. A DAY AT BEDTIME. levothyroxi levothyroxi No levothyrox [place] ne 200 mcg ne 200 mcg ine 200 da tablet TAKE tablet TAKE mcg tablet Medical ONE (1) ONE (1) TAKE ONE Group TABLET(S) TABLET(S) (1) BY MOUTH BY MOUTH TABLET(S) ONCE A DAY. ONCE A DAY. BY MOUTH ONCE A DAY. metformin metformin No metformin [place] 500 mg 500 mg 500 mg da tablet TAKE tablet TAKE tablet Medical ONE (1) ONE (1) TAKE ONE Group TABLET(S) TABLET(S) (1) BY MOUTH BY MOUTH TABLET(S) ONCE A DAY. ONCE A DAY. BY MOUTH ONCE A DAY. nitroglycer nitroglycer No nitroglyce [place] in [...] IN 15 MINS. 15 MINS. 15 MINS. OneTouch OneTouch No OneTouch [place] [facility] Delica Plus Delica Plus Delica da Lancet 33 Lancet 33 Plus Medic al gauge USE gauge USE Lancet 33 Group TO TEST TO TEST gauge USE THREE TIMES THREE TIMES TO TEST DAILY. DAILY. THREE TIMES DAILY. pantoprazol pantoprazol No pantoprazo [place] e 40 [...] BEDTIME. MEALS AND AT BEDTIME. Immunizations Ordered Filled Immunization Date Status Comments [facility] e Immunization Name Name influenza, influenza, 2021-07-13 Completed [place] [facility] injectable, injectable, 00:00:00 Group quadrivalent quadrivalent SARS-COV-2 COVID-19 2020-11-17 Completed [facility] of RISHABH/J&J VACCINE 00:00:00 [facility] influenza, influenza, 2020-06-17 Completed [place] [facility] injectable, injectable, 00:00:00 Group quadrivalent quadrivalent influenza, high influenza, high 2019-07-15 Completed Asael beltran Medical dose seasonal dose seasonal 16:23:03 Group Vital Signs Vital Name Observation Time Observation Value Comments Source BP Diastolic 2021-07-13 00:00:00 87 mm[Hg] [facility] Height 2021-07-13 00:00:00 62 [in_i] [facility] BMI (Body Mass 2021-07-13 00:00:00 41.8 kg/m2 [facility] Medical Index) Group BP Systolic 2021-07-13 00:00:00 140 mm[Hg] [facility] Body Weight 2021-07-13 00:00:00 3656 [oz_av] [facility] BP Diastolic 2021 00:00:00 80 mm[Hg] [facility] Height 2021 00:00:00 62 [in_i] [facility] BMI (Body Mass 2021 00:00:00 40.6 kg/m2 [facility] Medical Index) Group BP Systolic 2021 00:00:00 138 mm[Hg] [facility] Body Weight 2021 00:00:00 3555 [oz_av] [facility] BP Diastolic 2021-01-12 00:00:00 74 mm[Hg] [facility] Height 2021-01-12 00:00:00 62 [in_i] [facility] BP Systolic 2021-01-12 00:00:00 139 mm[Hg] [facility] BP Diastolic 2020-11-21 00:00:00 87 mm[Hg] [facility] Height 2020-11-21 00:00:00 62 [in_i] [facility] BMI (Body Mass 2020-11-21 00:00:00 38.8 kg/m2 [facility] Medical Index) Group BP Systolic 2020-11-21 00:00:00 158 mm[Hg] [facility] Body Weight 2020-11-21 00:00:00 3393 [oz_av] [facility] BP Diastolic 2020-07-11 00:00:00 95 mm[Hg] [facility] Height 2020-07-11 00:00:00 62 [in_i] [facility] BMI (Body Mass 2020-07-11 00:00:00 37.7 kg/m2 [facility] Medical Index) Group BP Systolic 2020-07-11 00:00:00 151 mm[Hg] [facility] Body Weight 2020-07-11 00:00:00 3297 [oz_av] [facility] Height 2020-05-10 00:00:00 62 [in_i] [facility] BMI (Body Mass 2020-05-10 00:00:00 37.9 kg/m2 [facility] Medical Index) Group Body Weight 2020-05-10 00:00:00 3312 [oz_av] [facility] BP Diastolic 2020-04-11 00:00:00 87 mm[Hg] [facility] Height 2020-04-11 00:00:00 62 [in_i] [facility] BMI (Body Mass 2020-04-11 00:00:00 37.9 kg/m2 [facility] Medical Index) Group BP Systolic 2020-04-11 [...] BMI (Body Mass 2020-02-08 00:00:00 41.4 kg/m2 [facility] Medical Index) Group BP Systolic 2020-02-08 00:00:00 151 mm[Hg] [facility] Body Weight 2020-02-08 00:00:00 3621 [oz_av] [facility] BP Diastolic 2020-01-12 00:00:00 71 mm[Hg] [facility] Height 2020-01-12 00:00:00 62 [in_i] [facility] BMI (Body Mass 2020-01-12 00:00:00 40.6 kg/m2 [facility] [employer]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 BP Systolic 2020-01-12 00:00:00 128 mm[Hg] [facility] Body Weight 2020-01-12 00:00:00 222.1 [lb_av] [facility] BP Diastolic 2019-11-04 00:00:00 76 mm[Hg] [facility] Height 2019-11-04 00:00:00 62 [in_i] [facility] BMI (Body Mass 2019-11-04 00:00:00 41.9 kg/m2 [facility] Medical Index) Group BP Systolic 2019-11-04 00:00:00 125 mm[Hg] [facility] Body Weight 2019-11-04 00:00:00 3664 [oz_av] [facility] BP Diastolic 2019-08-17 00:00:00 94 mm[Hg] [facility] Height 2019-08-17 00:00:00 62 [in_i] [facility] BMI (Body Mass 2019-08-17 00:00:00 42.4 kg/m2 [facility] Medical Index) Group BP Systolic 2019-08-17 00:00:00 162 mm[Hg] [facility] Body Weight 2019-08-17 00:00:00 3712 [oz_av] [facility] BP Diastolic 2019-07-15 00:00:00 93 mm[Hg] [facility] Height 2019-07-15 00:00:00 62 [in_i] [facility] BMI (Body Mass 2019-07-15 00:00:00 43.2 kg/m2 [facility] Medical Index) Group BP Systolic 2019-07-15 00:00:00 167 mm[Hg] [facility] Body Weight 2019-07-15 00:00:00 3780 [oz_av] [facility] BP Diastolic 2019-07-02 00:00:00 86 mm[Hg] [facility] Height 2019-07-02 00:00:00 62 [in_i] [facility] BMI (Body Mass 2019-07-02 00:00:00 43.5 kg/m2 [facility] Medical Index) Group BP Systolic 2019-07-02 00:00:00 144 mm[Hg] [facility] Body Weight 2019-07-02 00:00:00 3808 [oz_av] [facility] BP Diastolic 2019-06-08 00:00:00 86 mm[Hg] [facility] Height 2019-06-08 00:00:00 62 [in_i] [facility] BMI (Body Mass 2019-06-08 00:00:00 42.1 kg/m2 [facility] Medical Index) Group BP Systolic 2019-06-08 00:00:00 144 mm[Hg] [facility] Body Weight 2019-06-08 00:00:00 3680 [oz_av] [facility] BP Diastolic 2019-06-02 00:00:00 91 mm[Hg] [facility] Height 2019-06-02 00:00:00 62 [in_i] [facility] BMI (Body Mass 2019-06-02 00:00:00 41.9 kg/m2 [facility] Medical Index) Group BP Systolic 2019-06-02 00:00:00 145 mm[Hg] [facility] Body Weight 2019-06-02 00:00:00 3665 [oz_av] [facility] BP Diastolic 2019-04-14 00:00:00 76 mm[Hg] [facility] Height 2019-04-14 00:00:00 62 [in_i] [facility] BMI (Body Mass 2019-04-14 00:00:00 43 kg/m2 [facility] Medical Index) Group BP Systolic 2019-04-14 00:00:00 134 mm[Hg] [facility] Body Weight 2019-04-14 00:00:00 3760 [oz_av] [facility] BP Diastolic 2019-02-03 00:00:00 80 mm[Hg] [facility] Height 2019-02-03 00:00:00 62 [in_i] [facility] BMI (Body Mass 2019-02-03 00:00:00 43.3 kg/m2 [facility] Medical Index) Group BP Systolic 2019-02-03 00:00:00 143 mm[Hg] [facility] Body Weight 2019-02-03 00:00:00 236.9 [lb_av] [facility] Height 2018-10-30 00:00:00 62 [in_i] [facility] BMI (Body Mass 2018-10-30 00:00:00 44.8 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 BP Systolic 2018-10-30 00:00:00 152 mm[Hg] [facility] Body Weight 2018-10-30 00:00:00 3923 [oz_av] [facility] Procedures Procedure Date / Time Performing Source Performed Clinician RADIOLOGY DOCUMENTATION 2021-07-28 Doctor [facility] of 06:01:00 Unassigned, No [place] [facility] Name Branch MRI, shoulder, w/o contrast 2021-07-13 [facility] 00:00:00 Group XR, shoulder 2021-06-26 [facility] 00:00:00 Group unlisted imaging order 2020-03-31 [facility] 00:00:00 Group XR, ribs, bilateral 2020-03-31 [facility] 00:00:00 Group MRI, brain, w/o contrast [facility] US, duplex, carotid artery 2019-07-02 [facility] 00:00:00 Group US, echocardiogram, transthoracic, 2019-07-02 [facility] complete, w/ color flow 00:00:00 Group holter monitor 2019-07-02 [facility] 00:00:00 Group holter monitor 2019-06-29 [facility] 00:00:00 Group MAMMO, screening, digital, 2019-06-02 [facility] bilateral 00:00:00 Group MAMMO, screening, digital, 2019-04-14 [facility] bilateral 00:00:00 Group Thyroid Surgery 1979-09-09 [facility] 00:00:00 Group Hysterectomy [facility] Shoulder Joint Surgery [facility] Appendectomy [facility] Eye Surgery Procedure [facility] Esophagogastroduodenoscopy (Surg) [facility] Encounters Start End Encounter Admission Attending Care Care Encounter Source Date/Time Date/Time Type Type Clinicians Facility Department ID 2021-07-30 Outpatient Zuniga_F [facility]G MMG 1 [place] 19:00:59 108 Medical Group 2021-07-30 Outpatient Zuniga_F MMG MMG [id number] 1 [place] 17:12:59 104 Medical [facility] 2021-07-30 Outpatient Zuniga_F MMG MMG 1 [place] 05:04:23 011 Medical Group 2021-07-26 Outpatient Zuniga_F MMG MMG 1 [place] 12:23:31 202 Medical Group 2021-07-26 Outpatient Zuniga_F MMG MMG 1 [place] 12:17:50 201 Medical [facility] 2021-07-26 Outpatient Zuniga_F MMG MMG [id number] 1 [place] 12:12:06 130 Medical Group 2021-07-26 Outpatient Zuniga_F MMG MMG 1 [place] 11:30:42 118 Medical Group 2021-07-26 Outpatient Zuniga_F MMG MMG [id number] 1 [place] 10:30:26 105 Medical [facility] 2021-07-26 Outpatient Zuniga_F MMG MMG 1 [place] 10:07:59 102 Medical [facility] 2021-07-26 Outpatient Zuniga_F MMG MMG [id number] 1 [place] 10:00:13 030 Medical Group 2021-07-26 Outpatient Zuniga_F MMG MMG [id number] 1 [place] 09:47:03 028 Medical Group 2021-07-26 Outpatient Zuniga_F MMG MMG [id number] 1 [place] 08:47:18 014 Medical Group 2021-07-26 Outpatient Zuniga_F MMG MMG [id number] 0 [place] 06:44:14 911 Medical [facility] 2021-07-26 Outpatient Zuniga_F MMG MMG [id number] 0 [place] 06:11:14 901 [facility] 2021-07-26 Outpatient Zuniga_F MMG MMG 0 [place] 06:03:52 831 [facility] 2021-07-25 Outpatient Zuniga_F MMG MMG 1 [place] 20:51:20 112 [facility] 2021-07-25 Outpatient Zuniga_F MMG MMG 0 [place] 03:14:36 803 [facility] 2021-07-25 Outpatient Zuniga_F MMG MMG 0 [place] 03:01:15 802 [facility] 2021-07-24 Outpatient Zuniga_F MMG MMG 0 [place] 23:40:43 727 [facility] 2021-07-24 Outpatient Zuniga_F MMG MMG 0 [place] 21:51:08 723 [facility] 2021-07-23 Outpatient Zuniga_F MMG MMG 0 [place] 23:36:14 605 [facility] 2021-07-23 Outpatient Zuniga_F MMG MMG 0 [place] 21:28:02 601 [facility] 2021-07-23 Outpatient Zuniga_F MMG MMG 0 [place] 20:33:04 529 [facility] 2021-07-23 Outpatient Zuniga_F MMG MMG 0 [place] 19:39:26 527 [facility] 2021-07-23 Outpatient Zuniga_F MMG MMG 0 [place] 17:48:57 523 [facility] 2021-07-23 Outpatient Zuniga_F MMG MMG 0 [place] 16:29:50 520 [facility] 2021-07-23 Outpatient Zuniga_F MMG MMG 0 [place] 15:53:32 519 [facility] 2021-07-23 Outpatient Zuniga_F MMG MMG 0 [place] 14:01:07 515 [facility] 2021-07-23 Outpatient Zuniga_F MMG MM 0 [place] 12:52:45 514 [facility] 2021-07-23 Outpatient Zuniga_F MMG MMG 0 [place] 09:18:56 511 Medical Group 2021-07-23 Outpatient Zuniga_F MMG MMG 0 [place] 07:27:47 509 [facility] 2021-07-23 Outpatient Zuniga_F MMG MMG 0 [place] 06:01:55 507 Medical Group 2021-07-23 Outpatient Zuniga_F MMG MMG 0 [place] 05:57:21 507 [facility] Group 2021-07-23 Outpatient Zuniga_F MMG MMG 0 [place] 05:45:27 506 [facility] Group 2021-07-23 Outpatient Zuniga_F MMG MMG 0 [place] 04:44:38 506 [facility] Group 2021-07-23 Outpatient Zuniga_F MMG MMG 0 [place] 03:28:42 505 [facility] Group 2021-07-23 Outpatient Zuniga_F MMG MMG 0 [place] 02:02:16 504 [facility] Group 2021-07-23 Outpatient Zuniga_F MMG MMG 0 [place] 00:21:13 502 [facility] Group 2021-07-22 Outpatient Zuniga_F MMG MMG 0 [place] 22:57:43 430 [facility] Group 2021-07-22 Outpatient Zuniga_F MMG MMG 0 [place] 21:43:27 429 [facility] 2021-07-22 Outpatient Zuniga_F MMG MMG 0 [place] 20:22:40 428 Medical Group 2021-07-22 Outpatient Zuniga_F MMG MMG 0 [place] 19:00:19 427 Medical Group 2021-07-22 Outpatient Zuniga_F MMG MMG 0 [place] 11:48:44 420 Medical Group 2021-07-22 Outpatient Zuniga_F [facility] 0 [place] 10:11:19 418 Medical Group 2021-07-22 Outpatient Zuniga_F [facility] 0 [place] 09:45:13 417 Medical Group 2021-07-22 Outpatient Zuniga_F [facility] 0 [place] 09:04:19 416 Medical [facility] 2021-07-21 Outpatient Zuniga_F [facility] 0 [place] 22:54:27 315 Medical [facility] 2021-07-21 Outpatient Zuniga_F [facility] 0 [place] 19:44:49 216 Medical [facility] 2021-07-21 Outpatient Zuniga_F [facility] 0 [place] 16:01:49 111 [facility] 2021-07-21 Outpatient Zuniga_F [facility] 0 [place] 15:27:26 105 Medical [facility] 2021-07-21 Outpatient Zuniga_F [facility] 0 [place] 15:06:39 227 Medical [facility] 2021-07-21 Outpatient Zuniga_F [facility] 0 [place] 14:58:41 226 Medical [facility] 2021-07-21 Outpatient Zuniga_F [facility] 0 [place] 14:55:38 225 Medical [facility] 2021-07-28 2021-07-28 Orders Doctor ESCOBAR [id number] Univers 00:00:00 00:00:00 Only Unassigned, CHELSEA [id number] ity of [place] [facility] [id number] Aleksandar as [id number] [address] 2021-07-13 2021-07-13 [facility] [place] - [id number] [place] 00:00:00 00:00:00 Dallas Borrego MD: [address] [place] [address] [address], [place] [address] , Ph. 2021 2021 George MM [place] - [id number] [place] 00:00:00 00:00:00 Dallas Borrego Medical MD: [address] [place] [address] [address], [place] [address] , Ph. 2021-02-22 2021-02-22 Outpatient INDER [facility] [id number] [place] 00:00:00 00:00:[address] 2021-01-12 2021-01-12 George [facility] [place] - [id number] [place] 00:00:00 00:00:00 Dallas Borrego MD: [address] [place] [address], [place] [address] , Ph. 2020-11-21 2020-11-21 George MM [place] - [id number] [place] 00:00:00 00:00:00 Dallas Borrego MD: [address] [place] [address], [place] [address] , Ph. 2020-07-11 2020-07-11 George [facility] [place] - [id number] [place] 00:00:00 00:00:00 Dallas Borrego MD: [address] [place] [address], [place] [address] , Ph. 2020-05-10 2020-05-10 George MM [place] - [id number] [place] 00:00:00 00:00:00 Dallas Borrego MD: [address] [place] [address] [address], [place] [address] , Ph. 2020-04-27 2020-04-27 Outpatient IN[facility] [id number] [place] 00:00:00 00:00:[address] 2020-04-11 2020-04-11 George [facility]G [place] - [id number] [place] 00:00:00 00:00:00 Dallas Borrego Medical MD: [address] [place] [address] [address], [place] [address] , Ph. 2020-03-31 2020-03-31 Vanessa BETITOG [place] - [id number] M [facility] 00:00:00 00:00:00 Discovery onofre Chandra [employer]: [address] [place] [address] [address], [facility] [address] , Ph. 2020-02-08 2020-02-08 George CISSEG [place] - [id number] [place] 00:00:00 00:00:00 Dallas Borrego MD: [address] [place] [address] [address], [place] [address] , Ph. 2020-01-12 2020-01-12 Fede MMG [place] - [id number] M [facility] 00:00:00 00:00:00 Alexandru Sanchez MD: Medical Medica l [address] [place] [address] [address], [place] [address] , Ph. [phone] 2020-01-11 2020-01-11 Mary Ann MMG [place] - [id number] M [facility] 00:00:00 00:00:00 Dallas Cabrera Medical [employer]: [address] [place] [address] [address], [place] [address] , Ph. 2020-01-04 2020-01-04 George [place] - [id number] [place] 00:00:00 00:00:00 Dallas Borrego Medical MD: [address] [place] [address] [address], [place] [address] , Ph. 2019-11-04 2019-11-04 George [place] - [id number] [place] 00:00:00 00:00:00 Dallas Borrego MD: [address] [place] [address], [place] [address] , Ph. 2019-08-17 2019-08-17 George C[place] - [id number] [place] 00:00:00 00:00:00 Dallas Borrego MD: [address] [place] [address], [place] [address] , Ph. 2019-07-15 2019-07-15 George C[place] - [id number] [place] 00:00:00 00:00:00 Dallas Borrego MD: [address] [place] [address], [place] [address] , Ph. 2019-07-02 2019-07-02 George [place] - [id number] [place] 00:00:00 00:00:00 Dallas Borrego MD: [address] [place] [address], [place] [address] , Ph. 2019-06-08 2019-06-08 George [place] - [id number] [place] 00:00:00 00:00:00 Dallas Borrego MD: [address] [place] [address], [place] [address] , Ph. 2019-06-02 2019-06-02 George [place] - [id number] [place] 00:00:00 00:00:00 Dallas Borrego MD: [address] [place] [address], [place] [address] , Ph. 2019-04-14 2019-04-14 George C[place] - [id number] [place] 00:00:00 00:00:00 Dallas Borrego MD: [address] [facility] [address], [place] [address] , Ph. 2019-04-08 2019-04-08 George [facility]G [place] - [id number] [place] 00:00:00 00:00:00 Dallas Borrego MD: [address] [place] [address] [address], [place] [address] , Ph. 2019-02-03 2019-02-03 Randell [facility] [place] - [id number] M at[facility] 00:00:00 00:00:00 Discovery onofre Blum MD: [address] [place] [address] [address], [place] [address] , Ph. 2018-10-30 2018-10-30 George [facility] [place] - [id number] [place] 00:00:00 00:00:00 Dallas Borrego MD: [address] [place] [address] [address], [place] [address] , Ph. Results Test Description Test Time Test Comments Results Result Comments Source Hemoglobin A1c [Mass/volume] in Blood 2021 02:07:00 Test Item Value Reference Range Interpretation Comme nts Hemoglobin A1c [Mass/volume] in Blood (test code = 88264-5) 6.7 % 4.0-6.0 [facility] - Serum or Plasma 2021 02:07:00 Test Item Value Reference Range Interpretation Comments glucose (test code = glucose) 93 mg/dL 82-115 Urea nitrogen [Mass/volume] in 17 mg/dL 8-23 Serum or Plasma (test code = 3094-0) osmolality calculated,serum (test 277 mOsm/kg 280-300 L code = osmolality calculated,serum) creatinine (test code = 0.6 mg/dL 0.50-0.90 creatinine) glomerular filtration rate (test >60.00 code = glomerular filtration rate) Urea nitrogen/Creatinine [Mass 28.3 12-20 H Ratio] in Serum or Plasma (test code = 3097-3) sodium level (test code = sodium 138 mmol/L 135-145 level) Potassium [Moles/volume] in Body 4.3 mmol/L 3.5-5.2 fluid (test code = 2821-7) chloride level (test code = 108 mmol/L 98-108 chloride level) CO2 (test code = CO2) 21 mmol/L 21-32 anion gap (test code = anion gap) 13.3 mEq/L 12-20 calcium level (test code = 9.0 mg/dL 8.8-10.2 calcium level) total protein (test code = total 7.2 g/dL 6.6-8.7 protein) albumin (test code = albumin) 3.4 g/dL 3.5-5.2 L globulin (test code = globulin) 3.8 gm/dL A/G ratio (test code = A/G ratio) 0.9 >1.0 bilirubin,total (test code = <0.3 0.0-1.2 bilirubin,total) AST/SGOT (test code = AST/SGOT) 24 U/L 15-32 Alanine aminotransferase 33 U/L 0-33 [Enzymatic activity/volume] in Serum or Plasma (test code = 1742-6) Alkaline phosphatase [Enzymatic 94 U/L 35-105 activity/volume] in Serum or Plasma (test code = 6768-6) [facility] or [id number] 02:07:00 Test Item Value Reference Range Interpretation Comments cholesterol level (test code = 111 mg/dL 150-200 L cholesterol level) triglycerides level (test code = 66 mg/dL <150 triglycerides level) HDL cholesterol (test code = HDL 62 mg/dL >65 L cholesterol) LDL cholesterol direct (test code = 44 mg/dL <100 LDL cholesterol direct) cholesterol risk ratio (test code = 1.790 cholesterol risk ratio) [facility] W Auto Differential panel - [id number] 03:00:00 Test Item Value Reference Range Interpretation Comments white blood count (test code = 7.5 K/uL 4.0-11.5 white blood count) red blood count (test code = red 2.90 M/uL 3.80-5.20 L blood count) hemoglobin (test code = 8.9 g/dL 10.5-15.7 L hemoglobin) hematocrit (test code = 27.9 % 34.0-50.0 L hematocrit) MCV [Entitic volume] (test code = 96.2 fL 86-100 60666-6) mean corpuscular hemoglobin (test 30.7 pg 26.2-33.4 [...] 44.4-80.1 leukocytes in Blood (test code = 89433-1) Immature granulocytes [#/volume] 0.0 K/uL 0.0-0.03 in Blood (test code = 34650-9) lymphocyte% (test code = 15.9 % 10.0-50.0 lymphocyte%) mono % (test code = mono %) 6.0 % 3.6-12.0 eos % (test code = eos %) 0.8 % 0.0-5.4 Basophils/100 leukocytes in 0.1 % 0.1-1.2 Unspecified specimen (test code = 15409-4) Band form neutrophils [#/volume] 5.73 K/uL 1.56-6.13 in Blood (test code = 67934-8) Lymphocytes [#/volume] in 1.2 K/uL 1.18-3.74 Unspecified specimen by Automated count (test code = 90504-4) mono # (test code = mono #) 0.45 K/uL 0.24-0.86 eos # (test code = eos #) 0.06 K/uL 0.04-0.36 basophil # (test code = basophil 0.01 K/uL 0.01-0.08 #) NRBC% (test code = NRBC%) 1 /100 WBC 0-0.2 H NRBC# (test code = NRBC#) 0 K/uL [facility] metabolic 2000 panel - Serum or Wzkaqk1628-64-34 03:00:00 Test Item Value Reference Range Interpretation [...] = 7.8 mg/dL 8.8-10.2 L calcium level) [facility] W Auto Differential panel - [id number] 03:00:00 Test Item Value Reference Range Interpretation Comments white blood count (test code = 7.5 K/uL 4.0-11.5 white blood count) red blood count (test code = red 2.90 M/uL 3.80-5.20 L blood count) hemoglobin (test code = 8.9 g/dL 10.5-15.7 L hemoglobin) hematocrit (test code = 27.9 % 34.0-50.0 L hematocrit) MCV [Entitic volume] (test code = 96.2 fL 86-100 88078-9) mean corpuscular hemoglobin (test 30.7 pg 26.2-33.4 [...] 44.4-80.1 leukocytes in Blood (test code = 47669-1) Immature granulocytes [#/volume] 0.0 K/uL 0.0-0.03 in Blood (test code = 39496-6) lymphocyte% (test code = 15.9 % 10.0-50.0 lymphocyte%) mono % (test code = mono %) 6.0 % 3.6-12.0 eos % (test code = eos %) 0.8 % 0.0-5.4 Basophils/100 leukocytes in 0.1 % 0.1-1.2 Unspecified specimen (test code = 32243-3) Band form neutrophils [#/volume] 5.73 K/uL 1.56-6.13 in Blood (test code = 26819-5) Lymphocytes [#/volume] in 1.2 K/uL 1.18-3.74 Unspecified specimen by Automated count (test code = 44777-5) mono # (test code = mono #) 0.45 K/uL 0.24-0.86 eos # (test code = eos #) 0.06 K/uL 0.04-0.36 basophil # (test code = basophil 0.01 K/uL 0.01-0.08 #) NRBC% (test code = NRBC%) 1 /100 WBC 0-0.2 H NRBC# (test code = NRBC#) 0 K/uL [facility] metabolic 2000 panel - Serum or Argidi2918-20-05 03:00:00 Test Item Value Reference Range Interpretation [...] = 7.8 mg/dL 8.8-10.2 L calcium level) [facility] W Auto Differential panel - [id number] 03:00:00 Test Item Value Reference Range Interpretation Comments white blood count (test code = 7.5 K/uL 4.0-11.5 white blood count) red blood count (test code = red 2.90 M/uL 3.80-5.20 L blood count) hemoglobin (test code = 8.9 g/dL 10.5-15.7 L hemoglobin) hematocrit (test code = 27.9 % 34.0-50.0 L hematocrit) MCV [Entitic volume] (test code = 96.2 fL 86-100 67815-1) mean corpuscular hemoglobin (test 30.7 pg 26.2-33.4 [...] 44.4-80.1 leukocytes in Blood (test code = 37511-2) Immature granulocytes [#/volume] 0.0 K/uL 0.0-0.03 in Blood (test code = 91114-6) lymphocyte% (test code = 15.9 % 10.0-50.0 lymphocyte%) mono % (test code = mono %) 6.0 % 3.6-12.0 eos % (test code = eos %) 0.8 % 0.0-5.4 Basophils/100 leukocytes in 0.1 % 0.1-1.2 Unspecified specimen (test code = 59026-3) Band form neutrophils [#/volume] 5.73 K/uL 1.56-6.13 in Blood (test code = 72447-1) Lymphocytes [#/volume] in 1.2 K/uL 1.18-3.74 Unspecified specimen by Automated count (test code = 45986-1) mono # (test code = mono #) 0.45 K/uL 0.24-0.86 eos # (test code = eos #) 0.06 K/uL 0.04-0.36 basophil # (test code = basophil 0.01 K/uL 0.01-0.08 #) NRBC% (test code = NRBC%) 1 /100 WBC 0-0.2 H NRBC# (test code = NRBC#) 0 K/uL [facility] metabolic 2000 panel - Serum or [id number] 03:00:00 Test Item Value Reference Range Interpretation [...] = 7.8 mg/dL 8.8-10.2 L calcium level) [facility] W Auto Differential panel - [id number] 12:59:00 Test Item Value Reference Range Interpretation Comments white blood count (test code = 8.7 K/uL 4.0-11.5 white blood count) red blood count (test code = red 3.00 M/uL 3.80-5.20 L blood count) hemoglobin (test code = 9.1 g/dL 10.5-15.7 L hemoglobin) hematocrit (test code = 28.4 % 34.0-50.0 L hematocrit) MCV [Entitic volume] (test code = 94.7 fL 86-100 85354-4) mean corpuscular hemoglobin (test 30.3 pg 26.2-33.4 [...] 44.4-80.1 leukocytes in Blood (test code = 14475-5) Immature granulocytes [#/volume] 0.0 K/uL 0.0-0.03 H in Blood (test code = 11627-0) lymphocyte% (test code = 12.6 % 10.0-50.0 lymphocyte%) mono % (test code = mono %) 6.0 % 3.6-12.0 eos % (test code = eos %) 0.6 % 0.0-5.4 Basophils/100 leukocytes in 0.2 % 0.1-1.2 Unspecified specimen (test code = 14289-8) Band form neutrophils [#/volume] 6.95 K/uL 1.56-6.13 H in Blood (test code = 30181-0) Lymphocytes [#/volume] in 1.1 K/uL 1.18-3.74 L Unspecified specimen by Automated count (test code = 29692-0) mono # (test code = mono #) 0.52 K/uL 0.24-0.86 eos # (test code = eos #) 0.05 K/uL 0.04-0.36 basophil # (test code = basophil 0.02 K/uL 0.01-0.08 #) NRBC% (test code = NRBC%) 1 /100 WBC 0-0.2 H NRBC# (test code = NRBC#) 0 K/uL [facility] metabolic 2000 panel - Serum or Nzayns7415-16-80 12:59:00 Test Item Value Reference Range Interpretation [...] = 7.8 mg/dL 8.8-10.2 L calcium level) [facility] W Auto Differential panel - [id number] 12:59:00 Test Item Value Reference Range Interpretation Comments white blood count (test code = 8.7 K/uL 4.0-11.5 white blood count) red blood count (test code = red 3.00 M/uL 3.80-5.20 L blood count) hemoglobin (test code = 9.1 g/dL 10.5-15.7 L hemoglobin) hematocrit (test code = 28.4 % 34.0-50.0 L hematocrit) MCV [Entitic volume] (test code = 94.7 fL 86-100 87777-3) mean corpuscular hemoglobin (test 30.3 pg 26.2-33.4 [...] 44.4-80.1 leukocytes in Blood (test code = 52088-3) Immature granulocytes [#/volume] 0.0 K/uL 0.0-0.03 H in Blood (test code = 93796-2) lymphocyte% (test code = 12.6 % 10.0-50.0 lymphocyte%) mono % (test code = mono %) 6.0 % 3.6-12.0 eos % (test code = eos %) 0.6 % 0.0-5.4 Basophils/100 leukocytes in 0.2 % 0.1-1.2 Unspecified specimen (test code = 95820-8) Band form neutrophils [#/volume] 6.95 K/uL 1.56-6.13 H in Blood (test code = 34616-1) Lymphocytes [#/volume] in 1.1 K/uL 1.18-3.74 L Unspecified specimen by Automated count (test code = 42560-4) mono # (test code = mono #) 0.52 K/uL 0.24-0.86 eos # (test code = eos #) 0.05 K/uL 0.04-0.36 basophil # (test code = basophil 0.02 K/uL 0.01-0.08 #) NRBC% (test code = NRBC%) 1 /100 WBC 0-0.2 H NRBC# (test code = NRBC#) 0 K/uL [facility] metabolic 2000 panel - Serum or Qhejje4115-11-51 12:59:00 Test Item Value Reference Range Interpretation [...] = 7.8 mg/dL 8.8-10.2 L calcium level) [facility] W Auto Differential panel - [id number] 12:59:00 Test Item Value Reference Range Interpretation Comments white blood count (test code = 8.7 K/uL 4.0-11.5 white blood count) red blood count (test code = red 3.00 M/uL 3.80-5.20 L blood count) hemoglobin (test code = 9.1 g/dL 10.5-15.7 L hemoglobin) hematocrit (test code = 28.4 % 34.0-50.0 L hematocrit) MCV [Entitic volume] (test code = 94.7 fL 86-100 47830-9) mean corpuscular hemoglobin (test 30.3 pg 26.2-33.4 [...] 44.4-80.1 leukocytes in Blood (test code = 39562-5) Immature granulocytes [#/volume] 0.0 K/uL 0.0-0.03 H in Blood (test code = 33530-2) lymphocyte% (test code = 12.6 % 10.0-50.0 lymphocyte%) mono % (test code = mono %) 6.0 % 3.6-12.0 eos % (test code = eos %) 0.6 % 0.0-5.4 Basophils/100 leukocytes in 0.2 % 0.1-1.2 Unspecified specimen (test code = 62573-0) Band form neutrophils [#/volume] 6.95 K/uL 1.56-6.13 H in Blood (test code = 70667-9) Lymphocytes [#/volume] in 1.1 K/uL 1.18-3.74 L Unspecified specimen by Automated count (test code = 91919-7) mono # (test code = mono #) 0.52 K/uL 0.24-0.86 eos # (test code = eos #) 0.05 K/uL 0.04-0.36 basophil # (test code = basophil 0.02 K/uL 0.01-0.08 #) NRBC% (test code = NRBC%) 1 /100 WBC 0-0.2 H NRBC# (test code = NRBC#) 0 K/uL [facility] metabolic 2000 panel - Serum or Gmwqbm7314-83-40 12:59:00 Test Item Value Reference Range Interpretation [...] = 7.8 mg/dL 8.8-10.2 L calcium level) [facility] - [id number] 10:15:00 Test Item Value Reference Range Interpretation Comments hemoglobin (test code = hemoglobin) 9.4 g/dL 10.5-15.7 hematocrit (test code = hematocrit) 29.4 % 34.0-50.0 [facility] - [id number] 10:15:00 Test Item Value Reference Range Interpretation Comments hemoglobin (test code = hemoglobin) 9.4 g/dL 10.5-15.7 hematocrit (test code = hematocrit) 29.4 % 34.0-50.0 [facility] - Ytyuc1648-58-31 10:15:00 Test Item Value Reference Range Interpretation Comments hemoglobin (test code = hemoglobin) 9.4 g/dL 10.5-15.7 hematocrit (test code = hematocrit) 29.4 % 34.0-50.0 [facility] Differential [facility] - [id number] 01:45:00 Test Item Value Reference Range Interpretation Comments white blood count (test code = 8.4 K/uL 4.0-11.5 white blood count) red blood count (test code = red 2.27 M/uL 3.80-5.20 L blood count) hemoglobin (test code = 7.0 g/dL 10.5-15.7 L hemoglobin) hematocrit (test code = 21.8 % 34.0-50.0 L hematocrit) MCV [Entitic volume] (test code = 96.0 fL 86-100 83183-4) mean corpuscular hemoglobin (test 30.8 pg 26.2-33.4 [...] 44.4-80.1 leukocytes in Blood (test code = 99644-2) Immature granulocytes [#/volume] 0.0 K/uL 0.0-0.03 H in Blood (test code = 49126-3) lymphocyte% (test code = 14.9 % 10.0-50.0 lymphocyte%) mono % (test code = mono %) 5.5 % 3.6-12.0 eos % (test code = eos %) 0.7 % 0.0-5.4 Basophils/100 leukocytes in 0.1 % 0.1-1.2 Unspecified specimen (test code = 93675-2) Band form neutrophils [#/volume] 6.55 K/uL 1.56-6.13 H in Blood (test code = 23118-2) Lymphocytes [#/volume] in 1.3 K/uL 1.18-3.74 Unspecified specimen by Automated count (test code = 42371-0) mono # (test code = mono #) 0.46 K/uL 0.24-0.86 eos # (test code = eos #) 0.06 K/uL 0.04-0.36 basophil # (test code = basophil 0.01 K/uL 0.01-0.08 #) NRBC% (test code = NRBC%) 3 /100 WBC 0-0.2 H NRBC# (test code = NRBC#) 0 K/uL [facility] CenterDifferential [facility], method unspecified - [id number] 01:45:00NeutrophilsBandLymphocyteMonocyteEosinophilPlatelet EstimateMataKing's Daughters Medical CenterBasic metabolic 2000 panel - Serum or [id number] 01:45:00 Test Item Value Reference Range Interpretation [...] 8.8-10.2 L calcium level) [facility] W Auto Differential panel - [id number] 01:45:00 Test Item Value Reference Range Interpretation Comments white blood count (test code = 8.4 K/uL 4.0-11.5 white blood count) red blood count (test code = red 2.27 M/uL 3.80-5.20 L blood count) hemoglobin (test code = 7.0 g/dL 10.5-15.7 L hemoglobin) hematocrit (test code = 21.8 % 34.0-50.0 L hematocrit) MCV [Entitic volume] (test code = 96.0 fL 86-100 23001-2) mean corpuscular hemoglobin (test 30.8 pg 26.2-33.4 [...] 44.4-80.1 leukocytes in Blood (test code = 12098-0) Immature granulocytes [#/volume] 0.0 K/uL 0.0-0.03 H in Blood (test code = 85982-7) lymphocyte% (test code = 14.9 % 10.0-50.0 lymphocyte%) mono % (test code = mono %) 5.5 % 3.6-12.0 eos % (test code = eos %) 0.7 % 0.0-5.4 Basophils/100 leukocytes in 0.1 % 0.1-1.2 Unspecified specimen (test code = 65629-3) Band form neutrophils [#/volume] 6.55 K/uL 1.56-6.13 H in Blood (test code = 30638-4) Lymphocytes [#/volume] in 1.3 K/uL 1.18-3.74 Unspecified specimen by Automated count (test code = 98390-5) mono # (test code = mono #) 0.46 K/uL 0.24-0.86 eos # (test code = eos #) 0.06 K/uL 0.04-0.36 basophil # (test code = basophil 0.01 K/uL 0.01-0.08 #) NRBC% (test code = NRBC%) 3 /100 WBC 0-0.2 H NRBC# (test code = NRBC#) 0 K/uL [facility] CenterDifferential [facility], method unspecified - Oxgvj4615-71-85 01:45:00NeutrophilsBandLymphocyteMonocyteEosinophilPlatelet EstimateMataKing's Daughters Medical CenterBasic metabolic 2000 panel - Serum or Mjvvjw7136-28-47 01:45:00 Test Item Value Reference Range Interpretation [...] 8.8-10.2 L calcium level) [facility] W Auto Differential panel - [id number] 01:45:00 Test Item Value Reference Range Interpretation Comments white blood count (test code = 8.4 K/uL 4.0-11.5 white blood count) red blood count (test code = red 2.27 M/uL 3.80-5.20 L blood count) hemoglobin (test code = 7.0 g/dL 10.5-15.7 L hemoglobin) hematocrit (test code = 21.8 % 34.0-50.0 L hematocrit) MCV [Entitic volume] (test code = 96.0 fL 86-100 36095-0) mean corpuscular hemoglobin (test 30.8 pg 26.2-33.4 [...] 44.4-80.1 leukocytes in Blood (test code = 84167-5) Immature granulocytes [#/volume] 0.0 K/uL 0.0-0.03 H in Blood (test code = 76643-9) lymphocyte% (test code = 14.9 % 10.0-50.0 lymphocyte%) mono % (test code = mono %) 5.5 % 3.6-12.0 eos % (test code = eos %) 0.7 % 0.0-5.4 Basophils/100 leukocytes in 0.1 % 0.1-1.2 Unspecified specimen (test code = 60337-3) Band form neutrophils [#/volume] 6.55 K/uL 1.56-6.13 H in Blood (test code = 01381-9) Lymphocytes [#/volume] in 1.3 K/uL 1.18-3.74 Unspecified specimen by Automated count (test code = 24325-8) mono # (test code = mono #) 0.46 K/uL 0.24-0.86 eos # (test code = eos #) 0.06 K/uL 0.04-0.36 basophil # (test code = basophil 0.01 K/uL 0.01-0.08 #) NRBC% (test code = NRBC%) 3 /100 WBC 0-0.2 H NRBC# (test code = NRBC#) 0 K/uL [facility] CenterDifferential [facility], method unspecified - [id number] 01:45:00NeutrophilsBandLymphocyteMonocyteEosinophilPlatelet EstimateMaThe [facility]ty Hospital of MeridianBasic metabolic 2000 panel - Serum or Evillf1690-92-11 01:45:00 Test Item Value Reference Range Interpretation [...] = 7.9 mg/dL 8.8-10.2 L calcium level) [facility] - [id number] 13:40:00 Test Item Value Reference Range Interpretation Comments Blood type and Crossmatch unit number: panel - Blood (test code [id number] = 73067-2) [place] [id number] 13:40:00[facility] 13:40:00[facility] Ncyzvavm0400-88-01 13:40:00Results [place] [address]Ubelwsmy9579-88-44 13:40:00[facility] 2020-01-15 13:40:00[place] [address]Nygkobie5009-10-65 13:40:00Results [place] [address]Lrjisemy1314-40-55 13:40:00[facility] 2020-01-15 13:40:00[facility] Gwfddauv0575-17-03 13:40:00Results [place] [address]Dqffdhap8394-37-85 13:40:00[facility] 2020-01-15 13:40:00[facility] Nyheqmol5569-59-24 13:40:00Results [place] [facility] Ftzpjyvj0088-92-37 13:40:00[facility] 2020-01-15 13:40:00[facility] Bwfcvgiq8838-44-30 13:40:00Results [place] [facility] Iyterlvu8463-06-55 13:40:00[facility] 2020-01-15 13:40:00[facility] Lznclcka3519-79-48 13:40:00Results [place] [address]Iidrfcfh6144-02-37 13:40:00[facility] 2020-01-15 13:40:00[facility] Snrsszev6781-36-10 13:40:00Results [place] [facility] Qmyskkbm7007-18-25 13:40:00[facility] 2020-01-15 13:40:00[facility] Tbuzcsth3558-42-91 13:40:00Results [place] [facility] Viclbbjt7655-11-10 13:40:00[facility] 2020-01-15 13:40:00[facility] Mdvqxyre6424-19-58 13:40:00Results [place] [facility] - [id number] 13:40:00 Test Item Value Reference Range Interpretation Comments Blood type and Crossmatch unit number: panel - Blood (test code [id number] = 41302-7) [place] [facility] Ksmsotpm2039-65-99 13:40:00[facility] 2020-01-15 13:40:00[facility] Gpcuxwkb4294-01-90 13:40:00Results [place] [facility] Fugmhpjs1773-88-61 13:40:00[facility] 2020-01-15 13:40:00[facility] Udwwedrb4269-14-65 13:40:00Results [place] [facility] Opkbevbd3609-89-60 13:40:00[facility] 2020-01-15 13:40:00[facility] Ouflmaff6347-28-56 13:40:00Results [place] [facility] Phtubouk4952-68-49 13:40:00[facility] 2020-01-15 13:40:00[facility] Laojzlvg0035-61-25 13:40:00Results [place] [facility] Ijijacqp7349-01-21 13:40:00[facility] 2020-01-15 13:40:00[facility] Iwqrbppw7379-40-18 13:40:00Results [place] [facility] Txzfyqis8610-48-65 13:40:00[facility] 2020-01-15 13:40:00[facility] Feyoktru8538-19-96 13:40:00Results [place] [facility] Kyixasdj8453-69-35 13:40:00[facility] 2020-01-15 13:40:00[facility] Stndrykb2785-18-03 13:40:00Results [place] [facility] Snytukmx1799-14-57 13:40:00[facility] 2020-01-15 13:40:00[facility] Ygwloqah7308-28-34 13:40:00Results [place] [facility] Gfhphtip2805-69-59 13:40:00[facility] 2020-01-15 13:40:00[facility] Dwsqovdk9830-89-36 13:40:00Results [place] [facility] - [id number] 13:40:00 Test Item Value Reference Range Interpretation Comments Blood type and Crossmatch unit number: panel - Blood (test code [id number] = 03038-7) [place] [facility] Tidrwqkv2747-61-70 13:40:00[facility] 2020-01-15 13:40:00[facility] Iplhrrgn0909-48-82 13:40:00Results [place] [facility] Txajswxs8636-87-17 13:40:00[facility] 2020-01-15 13:40:00[facility] Ujniqyiv2438-74-26 13:40:00Results [place] [facility] Izckbpbr5253-47-57 13:40:00[facility] 2020-01-15 13:40:00[facility] Onnwrkan2431-75-22 13:40:00Results [place] [facility] Elozuoum8983-67-35 13:40:00[facility] 2020-01-15 13:40:00[facility] Dqhqfwrb8853-27-32 13:40:00Results [place] [facility] Rszibthv3005-04-20 13:40:00[facility] 2020-01-15 13:40:00[facility] Qynsqfyr0328-95-28 13:40:00Results [place] [facility] Jtudhhev9924-81-64 13:40:00[facility] 2020-01-15 13:40:00[facility] Ethojehu1971-03-68 13:40:00Results [place] [facility] Eddkivla7310-51-79 13:40:00[facility] 2020-01-15 13:40:00[facility] Hsvjpjlw6429-59-07 13:40:00Results [place] [facility] Sawwrhjd1958-27-27 13:40:00[facility] 2020-01-15 13:40:00[facility] Pkaswzky2055-26-22 13:40:00Results [place] [facility] Lpevunfr9252-50-29 13:40:00[facility] 2020-01-15 13:40:00[facility] Qzvksikn4399-51-22 13:40:00Results [place] [facility] GroupHemoglobin and Hematocrit panel - Gnqjk0770-58-65 09:48:00 Test Item Value Reference Range Interpretation Comments hemoglobin (test code = hemoglobin) 7.6 g/dL 10.5-15.7 hematocrit (test code = hematocrit) 23.5 % 34.0-50.0 [facility] - Qgogb4110-34-13 09:48:00 Test Item Value Reference Range Interpretation Comments hemoglobin (test code = hemoglobin) 7.6 g/dL 10.5-15.7 hematocrit (test code = hematocrit) 23.5 % 34.0-50.0 [facility] - [id number] 09:48:00 Test Item Value Reference Range Interpretation Comments hemoglobin (test code = hemoglobin) 7.6 g/dL 10.5-15.7 hematocrit (test code = hematocrit) 23.5 % 34.0-50.0 [facility]PT/QXH2223-27-99 08:07:00 Test Item Value Reference Range Interpretation Comments prothrombin time (test code = 10.4 seconds 10.3-12.3 prothrombin time) INR in Blood by Coagulation 0.96 assay (test code = 05775-0) [facility] [id number] 08:07:00 Test Item Value Reference Range Interpretation Comments INR in Blood by Coagulation 22.0 seconds 22.5-37.0 L assay (test code = 27616-1) [facility] Indirect [facility] screen [facility] - Blood 2020-01-15 08:07:00 Test Item Value Reference Range Interpretation Comments Rh [Type] in Blood (test code = neg 72484-7) ABO and Rh group panel - Blood O negative (test code = 97799-8) [facility]PT/VKV2917-41-30 08:07:00 Test Item Value Reference Range Interpretation Comments prothrombin time (test code = 10.4 seconds 10.3-12.3 prothrombin time) INR in Blood by Coagulation 0.96 assay (test code = 74295-0) [facility] wyzv5894-24-74 08:07:00 Test Item Value Reference Range Interpretation Comments INR in Blood by Coagulation 22.0 seconds 22.5-37.0 L assay (test code = 57923-4) [facility] - Blood 2020-01-15 08:07:00 Test Item Value Reference Range Interpretation Comments Rh [Type] in Blood (test code = neg 37908-3) ABO and Rh group panel - Blood O negative (test code = 49390-1) [id number] 08:07:00 Test Item Value Reference Range Interpretation Comments prothrombin time (test code = 10.4 seconds 10.3-12.3 prothrombin time) INR in Blood by Coagulation 0.96 assay (test code = 86225-3) [facility] [id number] 08:07:00 Test Item Value Reference Range Interpretation Comments INR in Blood by Coagulation 22.0 seconds 22.5-37.0 L assay (test code = 93143-3) [facility] [facility] - Blood 2020-01-15 08:07:00 Test Item Value Reference Range Interpretation Comments Rh [Type] in Blood (test code = neg 45267-0) ABO and Rh group panel - Blood O negative (test code = 96230-9) [facility]Com[facility] 2000 panel - Serum or Plasma [...] Serum or Plasma (test code = 6768-6) [facility] CenterCreatine kinase [Enzymatic activity/volume] in Serum or [id number] 07:32:00 Test Item Value Reference Range Interpretation Comments creatine kinase (test code = creatine 901 U/L 20-180 H kinase) [facility] CenterNatriuretic peptide.B prohormone N-Terminal [Mass/volume] in Serum or [id number] 07:32:00 Test Item Value Reference Range Interpretation Comments N-term pro natriuretic peptide (test 91 pg/mL 0-125 code = N-term pro natriuretic peptide) [facility] CenterTroponin I.cardiac [Mass/volume] in [id number] 07:32:00 Test Item Value Reference Range Interpretation Comments cardiac troponin I (test code = cardiac <0.30 0.0-0.5 troponin I) [facility] CenterCreatine kinase.MB [Mass/volume] in Serum or Plasma 2020-01-15 07:32:00 Test Item Value Reference Range Interpretation Comments Creatine kinase.MB [Mass/volume] 25.1 NG/mL 0.0-3.6 H in Serum or Plasma by Immunoassay (test code = 78664-7) [facility] CenterCom[facility] 2000 panel - Serum or Plasma [...] Serum or Plasma (test code = 6768-6) [facility] Group[facility] kinase [Enzymatic activity/volume] in Serum or [id number] 07:32:00 Test Item Value Reference Range Interpretation Comments creatine kinase (test code = creatine 901 U/L 20-180 H kinase) [facility] GroupNatriuretic peptide.B prohormone N-Terminal [Mass/volume] in Serum or [id number] 07:32:00 Test Item Value Reference Range Interpretation Comments N-term pro natriuretic peptide (test 91 pg/mL 0-125 code = N-term pro natriuretic peptide) [facility] CenterTroponin I.cardiac [Mass/volume] in [id number] 07:32:00 Test Item Value Reference Range Interpretation Comments cardiac troponin I (test code = cardiac <0.30 0.0-0.5 troponin I) [facility] CenterCreatine kinase.MB [Mass/volume] in Serum or Plasma 2020-01-15 07:32:00 Test Item Value Reference Range Interpretation Comments Creatine kinase.MB [Mass/volume] 25.1 NG/mL 0.0-3.6 H in Serum or Plasma by Immunoassay (test code = 31741-5) [facility] W Auto Differential panel - [id number] 07:32:00 Test Item Value Reference Range Interpretation Comments white blood count (test code = 8.5 K/uL 4.0-11.5 white blood count) red blood count (test code = red 1.60 M/uL 3.80-5.20 L blood count) hemoglobin (test code = 5.1 g/dL 10.5-15.7 hemoglobin) hematocrit (test code = 16.9 % 34.0-50.0 hematocrit) MCV [Entitic volume] (test code = 105.6 fL 86-100 H 69380-9) mean corpuscular hemoglobin (test 31.9 pg 26.2-33.4 [...] H leukocytes in Blood (test code = 47171-0) Immature granulocytes [#/volume] 0.0 K/uL 0.0-0.03 H in Blood (test code = 69173-9) lymphocyte% (test code = 11.4 % 10.0-50.0 lymphocyte%) mono % (test code = mono %) 5.4 % 3.6-12.0 eos % (test code = eos %) 0.5 % 0.0-5.4 Basophils/100 leukocytes in 0.1 % 0.1-1.2 Unspecified specimen (test code = 33990-8) Band form neutrophils [#/volume] 6.97 K/uL 1.56-6.13 H in Blood (test code = 65739-4) Lymphocytes [#/volume] in 1.0 K/uL 1.18-3.74 L Unspecified specimen by Automated count (test code = 05348-0) mono # (test code = mono #) 0.46 K/uL 0.24-0.86 eos # (test code = eos #) 0.04 K/uL 0.04-0.36 basophil # (test code = basophil 0.01 K/uL 0.01-0.08 #) NRBC% (test code = NRBC%) 2 /100 WBC 0-0.2 H NRBC# (test code = NRBC#) 0 K/uL [facility] CenterDifferential panel, method unspecified - [id number] 07:32:00NeutrophilsBandLymphocyteMonocyteEosinophilBasophilPlatelet EstimateDifferential comment-[facility]Com[facility] 2000 panel - Serum or [id number] 07:32:00 Test Item Value Reference Range Interpretation [...] Serum or Plasma (test code = 6768-6) [facility] GroupCreatine kinase [Enzymatic activity/volume] in Serum or [id number] 07:32:00 Test Item Value Reference Range Interpretation Comments creatine kinase (test code = creatine 901 U/L 20-180 H kinase) [facility] CenterNatriuretic peptide.B prohormone N-Terminal [Mass/volume] in Serum or [id number] 07:32:00 Test Item Value Reference Range Interpretation Comments N-term pro natriuretic peptide (test 91 pg/mL 0-125 code = N-term pro natriuretic peptide) [facility] CenterTroponin I.cardiac [Mass/volume] in [id number] 07:32:00 Test Item Value Reference Range Interpretation Comments cardiac troponin I (test code = cardiac <0.30 0.0-0.5 troponin I) [facility] CenterCreatine kinase.MB [Mass/volume] in Serum or Plasma 2020-01-15 07:32:00 Test Item Value Reference Range Interpretation Comments Creatine kinase.MB [Mass/volume] 25.1 NG/mL 0.0-3.6 H in Serum or Plasma by Immunoassay (test code = 77910-1) [facility] CenterUrinalysis complete panel - [id number] 04:45:00 Test Item Value Reference Range Interpretation Comments Color of Urine by Auto (test colorless code = 64912-4) Appearance of Urine (test code clear clear = 5767-9) Glucose [Presence] in Urine by negative negative Automated test strip (test code = 21106-5) Bilirubin.total [Mass/volume] negative negative in Urine (test code = 1977-) Ketones [Mass/volume] in Urine negative negative by Automated test strip (test code = 67273-3) Specific gravity of Urine by 1.008 1.003-1.030 Automated test strip (test code = 90521-9) blood urine (test code = blood negative negative urine) pH of Urine (test code = 5.500 5-9 2756-5) protein urine (UA) (test code = negative negative protein urine (UA)) Urobilinogen [Presence] in normal 0.2-1.0 Urine (test code = 44222-1) Nitrite [Presence] in Urine by negative negative Test strip (test code = 5802-4) Leukocyte esterase [Presence] negative negative in Urine by Automated test strip (test code = 94048-7) Erythrocytes [#/volume] in <1 0-5 Urine by Automated count (test code = 798-9) Leukocytes [#/area] in Urine <1 0-5 sediment by Automated count (test code = 13394-9) Epithelial cells [Presence] in <1 0-5 Urine sediment by Light microscopy (test code = 91990-8) Bacteria identified in Urine by none detected none detect Culture (test code = 630-4) Casts [#/area] in Urine =2-5 none detect sediment by Automated count (test code = 70956-8) urine culture added? (test code no = urine culture added?) [facility] CenterUrinalysis complete panel - [id number] 04:45:00 Test Item Value Reference Range Interpretation Comments Color of Urine by Auto (test colorless code = 91469-2) Appearance of Urine (test code clear clear = 5767-9) Glucose [Presence] in Urine by negative negative Automated test strip (test code = 64064-0) Bilirubin.total [Mass/volume] negative negative in Urine (test code = 1977-) Ketones [Mass/volume] in Urine negative negative by Automated test strip (test code = 46966-7) Specific gravity of Urine by 1.008 1.003-1.030 Automated test strip (test code = 68086-4) blood urine (test code = blood negative negative urine) pH of Urine (test code = 5.500 5-9 2756-5) protein urine (UA) (test code = negative negative protein urine (UA)) Urobilinogen [Presence] in normal 0.2-1.0 Urine (test code = 26040-1) Nitrite [Presence] in Urine by negative negative Test strip (test code = 5802-4) Leukocyte esterase [Presence] negative negative in Urine by Automated test strip (test code = 40915-0) Erythrocytes [#/volume] in <1 0-5 Urine by Automated count (test code = 798-9) Leukocytes [#/area] in Urine <1 0-5 sediment by Automated count (test code = 65621-3) Epithelial cells [Presence] in <1 0-5 Urine sediment by Light microscopy (test code = 68787-9) Bacteria identified in Urine by none detected none detect Culture (test code = 630-4) Casts [#/area] in Urine =2-5 none detect sediment by Automated count (test code = 19509-2) urine culture added? (test code no = urine culture added?) [facility] GroupUrinalysis complete panel - [id number] 04:45:00 Test Item Value Reference Range Interpretation Comments Color of Urine by Auto (test colorless code = 77112-3) Appearance of Urine (test code clear clear = 5767-9) Glucose [Presence] in Urine by negative negative Automated test strip (test code = 01464-6) Bilirubin.total [Mass/volume] negative negative in Urine (test code = 1978-02) Ketones [Mass/volume] in Urine negative negative by Automated test strip (test code = 92059-5) Specific gravity of Urine by 1.008 1.003-1.030 Automated test strip (test code = 22132-7) blood urine (test code = blood negative negative urine) pH of Urine (test code = 5.500 5-9 2756-5) protein urine (UA) (test code = negative negative protein urine (UA)) Urobilinogen [Presence] in normal 0.2-1.0 Urine (test code = 60588-7) Nitrite [Presence] in Urine by negative negative Test strip (test code = 5802-4) Leukocyte esterase [Presence] negative negative in Urine by Automated test strip (test code = 19922-5) Erythrocytes [#/volume] in <1 0-5 Urine by Automated count (test code = 798-9) Leukocytes [#/area] in Urine <1 0-5 sediment by Automated count (test code = 69401-8) Epithelial cells [Presence] in <1 0-5 Urine sediment by Light microscopy (test code = 32532-5) Bacteria identified in Urine by none detected none detect Culture (test code = 630-4) Casts [#/area] in Urine =2-5 none detect sediment by Automated count (test code = 48782-3) urine culture added? (test code no = urine culture added?) [facility] W Auto Differential panel - [id number] 09:37:00 Test Item Value Reference Range Interpretation Comments white blood count (test code = 6.7 K/uL 4.0-11.5 white blood count) red blood count (test code = red 2.27 M/uL 3.80-5.20 L blood count) hemoglobin (test code = 7.2 g/dL 10.5-15.7 hemoglobin) hematocrit (test code = 23.1 % 34.0-50.0 hematocrit) MCV [Entitic volume] (test code = 101.8 fL 86-100 H 18693-9) mean corpuscular hemoglobin (test 31.7 pg 26.2-33.4 [...] 44.4-80.1 leukocytes in Blood (test code = 87333-7) Immature granulocytes [#/volume] 0.0 K/uL 0.0-0.03 in Blood (test code = 49946-9) lymphocyte% (test code = 19.0 % 10.0-50.0 lymphocyte%) mono % (test code = mono %) 5.2 % 3.6-12.0 eos % (test code = eos %) 0.4 % 0.0-5.4 Basophils/100 leukocytes in 0.3 % 0.1-1.2 Unspecified specimen (test code = 00053-6) Band form neutrophils [#/volume] 4.98 K/uL 1.56-6.13 in Blood (test code = 21549-0) Lymphocytes [#/volume] in 1.3 K/uL 1.18-3.74 Unspecified specimen by Automated count (test code = 92527-7) mono # (test code = mono #) 0.35 K/uL 0.24-0.86 eos # (test code = eos #) 0.03 K/uL 0.04-0.36 L basophil # (test code = basophil 0.02 K/uL 0.01-0.08 #) NRBC% (test code = NRBC%) 1 /100 WBC 0-0.2 H NRBC# (test code = NRBC#) 0 K/uL [facility] W Auto Differential panel - [id number] 09:37:00 Test Item Value Reference Range Interpretation Comments white blood count (test code = 6.7 K/uL 4.0-11.5 white blood count) red blood count (test code = red 2.27 M/uL 3.80-5.20 L blood count) hemoglobin (test code = 7.2 g/dL 10.5-15.7 hemoglobin) hematocrit (test code = 23.1 % 34.0-50.0 hematocrit) MCV [Entitic volume] (test code = 101.8 fL 86-100 H 31681-6) mean corpuscular hemoglobin (test 31.7 pg 26.2-33.4 [...] 44.4-80.1 leukocytes in Blood (test code = 18074-5) Immature granulocytes [#/volume] 0.0 K/uL 0.0-0.03 in Blood (test code = 44766-0) lymphocyte% (test code = 19.0 % 10.0-50.0 lymphocyte%) mono % (test code = mono %) 5.2 % 3.6-12.0 eos % (test code = eos %) 0.4 % 0.0-5.4 Basophils/100 leukocytes in 0.3 % 0.1-1.2 Unspecified specimen (test code = 57791-6) Band form neutrophils [#/volume] 4.98 K/uL 1.56-6.13 in Blood (test code = 95670-3) Lymphocytes [#/volume] in 1.3 K/uL 1.18-3.74 Unspecified specimen by Automated count (test code = 63279-2) mono # (test code = mono #) 0.35 K/uL 0.24-0.86 eos # (test code = eos #) 0.03 K/uL 0.04-0.36 L basophil # (test code = basophil 0.02 K/uL 0.01-0.08 #) NRBC% (test code = NRBC%) 1 /100 WBC 0-0.2 H NRBC# (test code = NRBC#) 0 K/uL [facility] W Auto Differential panel - [id number] 09:37:00 Test Item Value Reference Range Interpretation Comments white blood count (test code = 6.7 K/uL 4.0-11.5 white blood count) red blood count (test code = red 2.27 M/uL 3.80-5.20 L blood count) hemoglobin (test code = 7.2 g/dL 10.5-15.7 hemoglobin) hematocrit (test code = 23.1 % 34.0-50.0 hematocrit) MCV [Entitic volume] (test code = 101.8 fL 86-100 H 30784-7) mean corpuscular hemoglobin (test 31.7 pg 26.2-33.4 [...] 44.4-80.1 leukocytes in Blood (test code = 08595-4) Immature granulocytes [#/volume] 0.0 K/uL 0.0-0.03 in Blood (test code = 10522-6) lymphocyte% (test code = 19.0 % 10.0-50.0 lymphocyte%) mono % (test code = mono %) 5.2 % 3.6-12.0 eos % (test code = eos %) 0.4 % 0.0-5.4 Basophils/100 leukocytes in 0.3 % 0.1-1.2 Unspecified specimen (test code = 79104-5) Band form neutrophils [#/volume] 4.98 K/uL 1.56-6.13 in Blood (test code = 02542-1) Lymphocytes [#/volume] in 1.3 K/uL 1.18-3.74 Unspecified specimen by Automated count (test code = 76654-4) mono # (test code = mono #) 0.35 K/uL 0.24-0.86 eos # (test code = eos #) 0.03 K/uL 0.04-0.36 L basophil # (test code = basophil 0.02 K/uL 0.01-0.08 #) NRBC% (test code = NRBC%) 1 /100 WBC 0-0.2 H NRBC# (test code = NRBC#) 0 K/uL [facility]Creat[facility] kinase [Enzymatic activity/volume] in Serum or [id number] 05:20:00 Test Item Value Reference Range Interpretation Comments creatine kinase (test code = creatine 189 U/L 20-180 H kinase) [facility] CenterTroponin I.cardiac [Mass/volume] in [id number] 05:20:00 Test Item Value Reference Range Interpretation Comments cardiac troponin I (test code = cardiac <0.30 0.0-0.5 troponin I) [facility] CenterCreatine kinase.MB [Mass/volume] in Serum or Plasma 2019-06-26 05:20:00 Test Item Value Reference Range Interpretation Comments mass creatinine kinase-mb (test 2.6 NG/mL 0.0-3.6 code = mass creatinine kinase-mb) [facility] W Auto Differential panel - [id number] 02:50:00 Test Item Value Reference Range Interpretation Comments white blood count (test code = 4.8 K/uL 4.0-11.5 white blood count) red blood count (test code = red 3.44 M/uL 3.80-5.20 L blood count) hemoglobin (test code = 11.0 g/dL 10.5-15.7 hemoglobin) hematocrit (test code = 34.4 % 34.0-50.0 hematocrit) Erythrocyte mean corpuscular 100.0 fL 86-100 volume [Entitic volume] (test code = 06098-5) mean corpuscular hemoglobin (test 32.0 pg 26.2-33.4 [...] 44.4-80.1 leukocytes in Blood (test code = 26568-8) Granulocytes Immature [#/volume] 0.0 K/uL 0.0-0.03 in Blood (test code = 73715-2) lymphocyte% (test code = 19.7 % 10.0-50.0 lymphocyte%) mono % (test code = mono %) 9.5 % 3.6-12.0 eos % (test code = eos %) 1.7 % 0.0-5.4 Basophils/100 leukocytes in 0.2 % 0.1-1.2 Unspecified specimen (test code = 15384-8) Neutrophils.band form [#/volume] 3.32 K/uL 1.56-6.13 in Blood (test code = 12993-8) Lymphocytes [#/volume] in 1.0 K/uL 1.18-3.74 L Unspecified specimen by Automated count (test code = 67945-8) mono # (test code = mono #) 0.46 K/uL 0.24-0.86 eos # (test code = eos #) 0.08 K/uL 0.04-0.36 basophil # (test code = basophil 0.01 K/uL 0.01-0.08 #) NRBC% (test code = NRBC%) 0 /100 WBC 0-0.2 NRBC# (test code = NRBC#) 0 K/uL [facility] Centerdifferential panel, [id number] 02:50:00 NeutrophilsBandLymphocyteAtypical LymphMonocyteEosinophilBasophilMetamyelocytePlatelet EstimatePlatelet MorphologyHypochromasiaAnisocytosisMacrocytosisToxic GranulationToxic VacuolationNorth [facility] CenterPT/[id number] 02:50:00 Test Item Value Reference Range Interpretation Comments prothrombin time (test code = 9.5 seconds 10.3-12.3 L prothrombin time) INR in Blood by Coagulation assay 0.90 (test code = 78621-7) [facility] Centerpartial thromboplastin [id number] 02:50:00 Test Item Value Reference Range Interpretation Comments INR in Blood by Coagulation 24.8 seconds 22.5-37.0 assay (test code = 84903-7) [facility] CenterComprehensive [facility] 2000 panel - Serum or Plasma [...] Serum or Plasma (test code = 6768-6) [facility] GroupCreatine kinase [Enzymatic activity/volume] in Serum or [id number] 02:50:00 Test Item Value Reference Range Interpretation Comments creatine kinase (test code = creatine 187 U/L 20-180 H kinase) [facility] GroupNatriuretic peptide.B prohormone N-Terminal [Mass/volume] in Serum or [id number] 02:50:00 Test Item Value Reference Range Interpretation Comments N-term pro natriuretic peptide 171 pg/mL 0-125 H (test code = N-term pro natriuretic peptide) [facility] GroupTroponin I.cardiac [Mass/volume] in [id number] 02:50:00 Test Item Value Reference Range Interpretation Comments cardiac troponin I (test code = cardiac <0.30 0.0-0.5 troponin I) [facility] CenterCreatine kinase.MB [Mass/volume] in Serum or Plasma 2019-06-26 02:50:00 Test Item Value Reference Range Interpretation Comments mass creatinine kinase-mb (test 2.6 NG/mL 0.0-3.6 code = mass creatinine kinase-mb) [facility] W Auto Differential panel - [id number] 02:50:00 Test Item Value Reference Range Interpretation Comments white blood count (test code = 4.8 K/uL 4.0-11.5 white blood count) red blood count (test code = red 3.44 M/uL 3.80-5.20 L blood count) hemoglobin (test code = 11.0 g/dL 10.5-15.7 hemoglobin) hematocrit (test code = 34.4 % 34.0-50.0 hematocrit) Erythrocyte mean corpuscular 100.0 fL 86-100 volume [Entitic volume] (test code = 65011-6) mean corpuscular hemoglobin (test 32.0 pg 26.2-33.4 [...] 44.4-80.1 leukocytes in Blood (test code = 20192-7) Granulocytes Immature [#/volume] 0.0 K/uL 0.0-0.03 in Blood (test code = 53536-0) lymphocyte% (test code = 19.7 % 10.0-50.0 lymphocyte%) mono % (test code = mono %) 9.5 % 3.6-12.0 eos % (test code = eos %) 1.7 % 0.0-5.4 Basophils/100 leukocytes in 0.2 % 0.1-1.2 Unspecified specimen (test code = 30134-9) Neutrophils.band form [#/volume] 3.32 K/uL 1.56-6.13 in Blood (test code = 71191-4) Lymphocytes [#/volume] in 1.0 K/uL 1.18-3.74 L Unspecified specimen by Automated count (test code = 60235-7) mono # (test code = mono #) 0.46 K/uL 0.24-0.86 eos # (test code = eos #) 0.08 K/uL 0.04-0.36 basophil # (test code = basophil 0.01 K/uL 0.01-0.08 #) NRBC% (test code = NRBC%) 0 /100 WBC 0-0.2 NRBC# (test code = NRBC#) 0 K/uL [facility] Centerdifferential panel, [id number] 02:50:00 NeutrophilsBandLymphocyteAtypical LymphMonocyteEosinophilBasophilMetamyelocytePlatelet EstimatePlatelet MorphologyHypochromasiaAnisocytosisMacrocytosisToxic GranulationToxic VacuolationNorth [facility] CenterPT/[id number] 02:50:00 Test Item Value Reference Range Interpretation Comments prothrombin time (test code = 9.5 seconds 10.3-12.3 L prothrombin time) INR in Blood by Coagulation assay 0.90 (test code = 27435-7) [facility]partial thromboplastin [id number] 02:50:00 Test Item Value Reference Range Interpretation Comments INR in Blood by Coagulation 24.8 seconds 22.5-37.0 assay (test code = 00289-8) [facility] CenterComprehensive metabolic 2000 panel - Serum or Plasma [...] Serum or Plasma (test code = 6768-6) [facility] GroupCreatine kinase [Enzymatic activity/volume] in Serum or [id number] 02:50:00 Test Item Value Reference Range Interpretation Comments creatine kinase (test code = creatine 187 U/L 20-180 H kinase) [facility] GroupNatriuretic peptide.B prohormone N-Terminal [Mass/volume] in Serum or [id number] 02:50:00 Test Item Value Reference Range Interpretation Comments N-term pro natriuretic peptide 171 pg/mL 0-125 H (test code = N-term pro natriuretic peptide) [facility] GroupTroponin I.cardiac [Mass/volume] in [id number] 02:50:00 Test Item Value Reference Range Interpretation Comments cardiac troponin I (test code = cardiac <0.30 0.0-0.5 troponin I) [facility] CenterCreatine kinase.MB [Mass/volume] in Serum or Plasma 2019-06-26 02:50:00 Test Item Value Reference Range Interpretation Comments mass creatinine kinase-mb (test 2.6 NG/mL 0.0-3.6 code = mass creatinine kinase-mb) [facility] W Auto Differential panel - [id number] 12:30:00 Test Item Value Reference Range Interpretation Comments white blood count (test code = 5.8 K/uL 4.0-11.5 white blood count) red blood count (test code = red 3.64 M/uL 3.80-5.20 L blood count) hemoglobin (test code = 11.6 g/dL 10.5-15.7 hemoglobin) hematocrit (test code = 36.9 % 34.0-50.0 hematocrit) Erythrocyte mean corpuscular 101.4 fL 86-100 H volume [Entitic volume] (test code = 49945-3) mean corpuscular hemoglobin (test 31.9 pg 26.2-33.4 [...] 44.4-80.1 leukocytes in Blood (test code = 21114-0) Granulocytes Immature [#/volume] 0.0 K/uL 0.0-0.03 in Blood (test code = 40963-5) lymphocyte% (test code = 20.2 % 10.0-50.0 lymphocyte%) mono % (test code = mono %) 9.8 % 3.6-12.0 eos % (test code = eos %) 0.9 % 0.0-5.4 Basophils/100 leukocytes in 0.2 % 0.1-1.2 Unspecified specimen (test code = 30031-8) Neutrophils.band form [#/volume] 4.00 K/uL 1.56-6.13 in Blood (test code = 18265-1) Lymphocytes [#/volume] in 1.2 K/uL 1.18-3.74 Unspecified specimen by Automated count (test code = 59963-0) mono # (test code = mono #) 0.57 K/uL 0.24-0.86 eos # (test code = eos #) 0.05 K/uL 0.04-0.36 basophil # (test code = basophil 0.01 K/uL 0.01-0.08 #) NRBC% (test code = NRBC%) 0 /100 WBC 0-0.2 NRBC# (test code = NRBC#) 0 K/uL [facility] Centerdifferential panel, [id number] 12:30:00 NeutrophilsBandLymphocyteAtypical LymphMonocyteEosinophilBasophilPlatelet EstimatePlatelet MorphologyMacrocytosisNorth [facility] CenterBasi metabolic 2000 panel - Serum or [id number] 12:30:00 Test Item Value Reference Range Interpretation [...] = calcium 8.5 mg/dL 8.8-10.2 L level) [facility] W Auto Differential panel - [id number] 12:30:00 Test Item Value Reference Range Interpretation Comments white blood count (test code = 5.8 K/uL 4.0-11.5 white blood count) red blood count (test code = red 3.64 M/uL 3.80-5.20 L blood count) hemoglobin (test code = 11.6 g/dL 10.5-15.7 hemoglobin) hematocrit (test code = 36.9 % 34.0-50.0 hematocrit) Erythrocyte mean corpuscular 101.4 fL 86-100 H volume [Entitic volume] (test code = 75480-2) mean corpuscular hemoglobin (test 31.9 pg 26.2-33.4 [...] 44.4-80.1 leukocytes in Blood (test code = 52472-7) Granulocytes Immature [#/volume] 0.0 K/uL 0.0-0.03 in Blood (test code = 68549-6) lymphocyte% (test code = 20.2 % 10.0-50.0 lymphocyte%) mono % (test code = mono %) 9.8 % 3.6-12.0 eos % (test code = eos %) 0.9 % 0.0-5.4 Basophils/100 leukocytes in 0.2 % 0.1-1.2 Unspecified specimen (test code = 19015-0) Neutrophils.band form [#/volume] 4.00 K/uL 1.56-6.13 in Blood (test code = 60046-0) Lymphocytes [#/volume] in 1.2 K/uL 1.18-3.74 Unspecified specimen by Automated count (test code = 74394-5) mono # (test code = mono #) 0.57 K/uL 0.24-0.86 eos # (test code = eos #) 0.05 K/uL 0.04-0.36 basophil # (test code = basophil 0.01 K/uL 0.01-0.08 #) NRBC% (test code = NRBC%) 0 /100 WBC 0-0.2 NRBC# (test code = NRBC#) 0 K/uL [facility] Centerdifferential panel, [id number] 12:30:00 NeutrophilsBandLymphocyteAtypical LymphMonocyteEosinophilBasophilPlatelet EstimatePlatelet MorphologyMacrocytosisNorth [facility] CenterBasic metabolic 2000 panel - Serum or [id number] 12:30:00 Test Item Value Reference Range Interpretation [...] = calcium 8.5 mg/dL 8.8-10.2 L level) [facility] CenterUrinalysis complete panel - [id number] 11:54:00 Test Item Value Reference Range Interpretation Comments Color of Urine by Auto light yellow (test code = 62876-3) Appearance of Urine (test clear clear code = 5767-9) Glucose [Presence] in negative negative Urine by Automated test strip (test code = 60155-3) Bilirubin.total negative negative [Mass/volume] in Urine (test code = 1977-) Ketones [Mass/volume] in negative negative Urine by Automated test strip (test code = 69369-2) Specific gravity of Urine 1.025 1.003-1.030 by Automated test strip (test code = 79435-4) blood urine (test code = negative negative blood urine) pH of Urine (test code = 6.500 5-9 2756-5) protein urine (UA) (test negative negative code = protein urine (UA)) Urobilinogen [Presence] normal 0.2-1.0 in Urine (test code = 80351-5) Nitrite [Presence] in negative negative Urine by Test strip (test code = 5802-4) Leukocyte esterase negative negative [Presence] in Urine by Automated test strip (test code = 63852-8) Erythrocytes [#/volume] <1 0-5 in Urine by Automated count (test code = 798-9) Leukocytes [#/area] in <1 0-5 Urine sediment by Automated count (test code = 71287-8) Epithelial cells <1 0-5 [Presence] in Urine sediment by Light microscopy (test code = 03674-3) Bacteria identified in none detected none detect Urine by Culture (test code = 630-4) Casts [#/area] in Urine =11-14 none detect H sediment by Automated count (test code = 57971-0) urine culture added? no (test code = urine culture added?) path casts,U (test code = cellular casts (1-5 none detect A path casts,U) [facility] - [id number] 11:54:00 Test Item Value Reference Range Interpretation Comments Color of Urine by Auto light yellow (test code = 16251-9) Appearance of Urine (test clear clear code = 5767-9) Glucose [Presence] in negative negative Urine by Automated test strip (test code = 22330-6) Bilirubin.total negative negative [Mass/volume] in Urine (test code = 1978-02) Ketones [Mass/volume] in negative negative Urine by Automated test strip (test code = 36855-6) Specific gravity of Urine 1.025 1.003-1.030 by Automated test strip (test code = 44161-3) blood urine (test code = negative negative blood urine) pH of Urine (test code = 6.500 5-9 2756-5) protein urine (UA) (test negative negative code = protein urine (UA)) Urobilinogen [Presence] normal 0.2-1.0 in Urine (test code = 20509-9) Nitrite [Presence] in negative negative Urine by Test strip (test code = 5802-4) Leukocyte esterase negative negative [Presence] in Urine by Automated test strip (test code = 84976-3) Erythrocytes [#/volume] <1 0-5 in Urine by Automated count (test code = 798-9) Leukocytes [#/area] in <1 0-5 Urine sediment by Automated count (test code = 15752-1) Epithelial cells <1 0-5 [Presence] in Urine sediment by Light microscopy (test code = 64912-7) Bacteria identified in none detected none detect Urine by Culture (test code = 630-4) Casts [#/area] in Urine =11-14 none detect H sediment by Automated count (test code = 98985-7) urine culture added? no (test code = urine culture added?) path casts,U (test code = cellular casts (1-5 none detect A path casts,U) [facility] W Auto Differential panel - [id number] 09:30:00 Test Item Value Reference Range Interpretation Comments white blood count (test code = 5.6 K/uL 4.0-11.5 white blood count) red blood count (test code = red 3.98 M/uL 3.80-5.20 blood count) hemoglobin (test code = 12.7 g/dL 10.5-15.7 hemoglobin) hematocrit (test code = 39.8 % 34.0-50.0 hematocrit) Erythrocyte mean corpuscular 100.0 fL 86-100 volume [Entitic volume] (test code = 48667-9) mean corpuscular hemoglobin (test 31.9 pg 26.2-33.4 [...] 44.4-80.1 leukocytes in Blood (test code = 21269-8) Granulocytes Immature [#/volume] 0.0 K/uL 0.0-0.03 in Blood (test code = 45067-7) lymphocyte% (test code = 15.1 % 10.0-50.0 lymphocyte%) mono % (test code = mono %) 6.8 % 3.6-12.0 eos % (test code = eos %) 0.7 % 0.0-5.4 Basophils/100 leukocytes in 0.4 % 0.1-1.2 Unspecified specimen (test code = 06302-1) Neutrophils.band form [#/volume] 4.29 K/uL 1.56-6.13 in Blood (test code = 28499-1) Lymphocytes [#/volume] in 0.8 K/uL 1.18-3.74 L Unspecified specimen by Automated count (test code = 92296-8) mono # (test code = mono #) 0.38 K/uL 0.24-0.86 eos # (test code = eos #) 0.04 K/uL 0.04-0.36 basophil # (test code = basophil 0.02 K/uL 0.01-0.08 #) NRBC% (test code = NRBC%) 0 /100 WBC 0-0.2 NRBC# (test code = NRBC#) 0 K/uL [facility] Centerdifferential panel, [id number] 09:30:00 NeutrophilsBandLymphocyteAtypical LymphMonocyteEosinophilPlatelet EstimatePlatelet MorphologyMacrocytosisMaThe [facility]ty Hospital of MeridianPT/[id number] 09:30:00 Test Item Value Reference Range Interpretation Comments prothrombin time (test code = 10.5 seconds 10.3-12.3 prothrombin time) INR in Blood by Coagulation 0.95 assay (test code = 61691-2) [facility] Centerpartial thromboplastin [id number] 09:30:00 Test Item Value Reference Range Interpretation Comments INR in Blood by Coagulation 23.4 seconds 22.5-37.0 assay (test code = 75156-0) [facility] 2000 [facility] - Serum or Plasma [...] Serum or Plasma (test code = 6768-6) [facility] CenterMagnesium [Moles/volume] in Unspecified specimen 2019-06-03 09:30:00 Test Item Value Reference Range Interpretation Comments magnesium level (test code = 1.8 mg/dL 1.6-2.4 magnesium level) [facility] CenterEthanol [Mass/volume] in Serum or [id number] 09:30:00 Test Item Value Reference Range Interpretation Comments alcohol level (test code = alcohol <10.1 0.00-10.1 level) [facility] CenterCreatine kinase [Enzymatic activity/volume] in Serum or [id number] 09:30:00 Test Item Value Reference Range Interpretation Comments creatine kinase (test code = creatine 150 U/L 20-180 kinase) [facility] CenterNatriuretic peptide.B prohormone N-Terminal [Mass/volume] in Serum or [id number] 09:30:00 Test Item Value Reference Range Interpretation Comments N-term pro natriuretic peptide 200 pg/mL 0-125 H (test code = N-term pro natriuretic peptide) [facility] CenterTroponin I.cardiac [Mass/volume] in [id number] 09:30:00 Test Item Value Reference Range Interpretation Comments cardiac troponin I (test code = cardiac <0.30 0.0-0.5 troponin I) [facility] CenterCreatine kinase.MB [Mass/volume] in Serum or Plasma 2019-06-03 09:30:00 Test Item Value Reference Range Interpretation Comments mass creatinine kinase-mb (test 2.3 NG/mL 0.0-3.6 code = mass creatinine kinase-mb) [facility] CenterMyoglobin [Mass/volume] in Serum or [id number] 09:30:00 Test Item Value Reference Range Interpretation Comments myoglobin (test code = myoglobin) 37 NG/mL -58 [facility] W Auto Differential panel - [id number] 09:30:00 Test Item Value Reference Range Interpretation Comments white blood count (test code = 5.6 K/uL 4.0-11.5 white blood count) red blood count (test code = red 3.98 M/uL 3.80-5.20 blood count) hemoglobin (test code = 12.7 g/dL 10.5-15.7 hemoglobin) hematocrit (test code = 39.8 % 34.0-50.0 hematocrit) Erythrocyte mean corpuscular 100.0 fL 86-100 volume [Entitic volume] (test code = 91074-2) mean corpuscular hemoglobin (test 31.9 pg 26.2-33.4 [...] 44.4-80.1 leukocytes in Blood (test code = 73498-2) Granulocytes Immature [#/volume] 0.0 K/uL 0.0-0.03 in Blood (test code = 58275-2) lymphocyte% (test code = 15.1 % 10.0-50.0 lymphocyte%) mono % (test code = mono %) 6.8 % 3.6-12.0 eos % (test code = eos %) 0.7 % 0.0-5.4 Basophils/100 leukocytes in 0.4 % 0.1-1.2 Unspecified specimen (test code = 28211-2) Neutrophils.band form [#/volume] 4.29 K/uL 1.56-6.13 in Blood (test code = 71690-6) Lymphocytes [#/volume] in 0.8 K/uL 1.18-3.74 L Unspecified specimen by Automated count (test code = 14574-6) mono # (test code = mono #) 0.38 K/uL 0.24-0.86 eos # (test code = eos #) 0.04 K/uL 0.04-0.36 basophil # (test code = basophil 0.02 K/uL 0.01-0.08 #) NRBC% (test code = NRBC%) 0 /100 WBC 0-0.2 NRBC# (test code = NRBC#) 0 K/uL [facility] Centerdifferential panel, [id number] 09:30:00 NeutrophilsBandLymphocyteAtypical LymphMonocyteEosinophilPlatelet EstimatePlatelet MorphologyMacrocytosisMaThe [facility]ty Hospital of MeridianPT/[id number] 09:30:00 Test Item Value Reference Range Interpretation Comments prothrombin time (test code = 10.5 seconds 10.3-12.3 prothrombin time) INR in Blood by Coagulation 0.95 assay (test code = 54599-4) [facility] Centerpartial thromboplastin [id number] 09:30:00 Test Item Value Reference Range Interpretation Comments INR in Blood by Coagulation 23.4 seconds 22.5-37.0 assay (test code = 81028-8) [facility] CenterComprehensive metabolic 2000 panel - Serum or Plasma [...] Serum or Plasma (test code = 6768-6) [facility] GroupMagnesium [Moles/volume] in Unspecified specimen 2019-06-03 09:30:00 Test Item Value Reference Range Interpretation Comments magnesium level (test code = 1.8 mg/dL 1.6-2.4 magnesium level) [facility] GroupEthanol [Mass/volume] in Serum or [id number] 09:30:00 Test Item Value Reference Range Interpretation Comments alcohol level (test code = alcohol <10.1 0.00-10.1 level) [facility] GroupCreatine kinase [Enzymatic activity/volume] in Serum or [id number] 09:30:00 Test Item Value Reference Range Interpretation Comments creatine kinase (test code = creatine 150 U/L 20-180 kinase) [facility] CenterNatriuretic peptide.B prohormone N-Terminal [Mass/volume] in Serum or [id number] 09:30:00 Test Item Value Reference Range Interpretation Comments N-term pro natriuretic peptide 200 pg/mL 0-125 H (test code = N-term pro natriuretic peptide) [facility] CenterTroponin I.cardiac [Mass/volume] in [id number] 09:30:00 Test Item Value Reference Range Interpretation Comments cardiac troponin I (test code = cardiac <0.30 0.0-0.5 troponin I) [facility] GroupCreatine kinase.MB [Mass/volume] in Serum or Plasma 2019-06-03 09:30:00 Test Item Value Reference Range Interpretation Comments mass creatinine kinase-mb (test 2.3 NG/mL 0.0-3.6 code = mass creatinine kinase-mb) [facility] GroupMyoglobin [Mass/volume] in Serum or [id number] 09:30:00 Test Item Value Reference Range Interpretation Comments myoglobin (test code = myoglobin) 37 NG/mL 25-58 [facility] CenterUrinalysis complete panel - [id number] 05:40:00 Test Item Value Reference Range Interpretation Comments Color of Urine by Auto yellow (test code = 08877-4) Appearance of Urine (test SL cloudy clear A code = 5767-9) Glucose [Presence] in Urine negative negative by Automated test strip (test code = 95298-7) Bilirubin.total negative negative [Mass/volume] in Urine (test code = 1978-6) Ketones [Mass/volume] in =1 negative H Urine by Automated test strip (test code = 47067-3) Specific gravity of Urine 1.022 1.003-1.030 by Automated test strip (test code = 96903-7) blood urine (test code = trace negative blood urine) pH of Urine (test code = 7.000 5-9 2756-5) protein urine (UA) (test =1+ (30 negative H code = protein urine (UA)) Urobilinogen [Presence] in =2.0 0.2-1.0 H Urine (test code = 54946-1) Nitrite [Presence] in Urine positive negative H by Test strip (test code = 5802-4) Leukocyte esterase =4 negative H [Presence] in Urine by Automated test strip (test code = 47921-9) Erythrocytes [#/volume] in =6-10 0-5 H Urine by Automated count (test code = 798-9) Leukocytes [#/area] in =11-14 0-5 H Urine sediment by Automated count (test code = 42465-7) Epithelial cells [Presence] =11-25 0-5 H in Urine sediment by Light microscopy (test code = 86910-3) Bacteria identified in trace none detect Urine by Culture (test code = 630-4) Casts [#/area] in Urine =2-5 none detect sediment by Automated count (test code = 51045-8) urine culture added? (test no. contaminated. code = urine culture added?) [facility] CenterBacteria identified in Urine by [id number] 05:40:00Bacteria Ur CultMataKing's Daughters Medical CenterPT/[id number] 05:17:00 Test Item Value Reference Range Interpretation Comments prothrombin time (test code = 9.9 seconds 10.3-12.3 L prothrombin time) INR in Blood by Coagulation assay 0.94 (test code = 94633-4) [facility] Centerpartial thromboplastin [id number] 05:17:00 Test Item Value Reference Range Interpretation Comments INR in Blood by Coagulation 24.3 seconds 22.5-37.0 assay (test code = 49702-1) [facility] W Auto Differential panel - [id number] 05:17:00 Test Item Value Reference Range Interpretation Comments white blood count (test 5.6 K/uL 4.0-11.5 code = white blood count) red blood count (test 4.89 M/uL 3.80-5.20 code = red blood count) Hemoglobin [Mass/volume] 15.0 g/dL 10.5-15.7 in Blood (test code = 718-7) hematocrit (test code = 47.9 % 34.0-50.0 hematocrit) Erythrocyte mean 97.9 fL 78-98 corpuscular volume [Entitic volume] (test code = 20203-0) Erythrocyte mean 30.6 pg 26.2-33.4 corpuscular hemoglobin [Entitic mass] (test code = 94474-9) mean corpuscular HGB 31.3 g/dL 31.5-36.2 L conc (test code = mean corpuscular HGB conc) red cell distribution 13.3 % 11.5-15.5 width (test code = red cell distribution width) Platelets [#/volume] in 283 K/uL 137-338 Blood (test code = 21748-2) Platelet mean volume 6.8 fL 8.4-11.8 L [Entitic volume] in Blood (test code = 83977-5) Neutrophils.band 68.6 % 44.4-80.1 form/100 leukocytes in Blood (test code = 83186-0) Lymphocytes/100 20.7 % 10.0-50.0 leukocytes in Body fluid (test code = 85260-4) Monocytes/100 leukocytes 9.2 % 3.6-12.04 in Blood by Automated count (test code = 5905-5) Eosinophils/100 0.4 % 0.0-5.41 leukocytes in Blood by Automated count (test code = 713-8) Basophils/100 leukocytes 1.1 % 0.0-0.79 H in Blood by Automated count (test code = 706-2) Platelet morphology hypersegmented polys normal RBC. finding [Identifier] in Blood (test code = 47226-5) [facility] Centerdifferential panel, [id number] 05:17:00 NeutrophilsBandLymphocyteAtypical LymphMonocyteEosinophilBasophilMyelocytePlatelet EstimatePlatelet M orphologyHypersegmented PolysToxic VacuolationSmudge CellsMaThe [facility]ty Hospital of MeridianComprehensive metabolic 2000 panel - Serum or [id number] 05:17:00 Test Item Value Reference Range Interpretation [...] Serum or Plasma (test code = 6768-6) [facility] CenterCreatine kinase [Enzymatic activity/volume] in Serum or [id number] 05:17:00 Test Item Value Reference Range Interpretation Comments creatine kinase (test code = creatine 246 U/L 20-180 H kinase) [facility] CenterTroponin I.cardiac [Mass/volume] in [id number] 05:17:00 Test Item Value Reference Range Interpretation Comments cardiac troponin I (test code = cardiac <0.30 0.0-0.5 troponin I) [facility] CenterCreatine kinase.MB [Mass/volume] in Serum or Plasma 2018-10-09 05:17:00 Test Item Value Reference Range Interpretation Comments mass creatinine kinase-mb (test 3.9 NG/mL 0.0-3.6 H code = mass creatinine kinase-mb) [facility]
--- NOTE | 2021-07-31 12:44 | RAD REPORT ---
EXAM DESCRIPTION: [facility]07/31/2021 12:35 pm CLINICAL HISTORY: Weakness, abdominal pain, diarrhea COMPARISON: March 2021 FINDINGS: Mild bilateral interstitial lung opacities are unchanged. I suspect most if not all of th is is chronic. Heart is mildly enlarged
[2021-07-31] MEDS ORDERED: ONDANSETRON 4 MG/2 ML VIAL ONE (13:40)
[2021-07-31 14:02] LABS: Albumin 3.3 g/dL (3.4-5.0); Bilirubin Direct 0.2 mg/dL (0-0.2); Bilirubin Total 0.5 mg/dL (0.2-1.0); Potassium 4.5 mmol/L (3.5-5.1); Protein, Total 8.7 g/dL (6.4-8.2); Troponin (Emerg Dept Use Only) 0.06 ng/mL (0.0-0.045)
[2021-07-31 14:05] LABS: Absolute Lymphocytes (CBC) 0.4 K/uL (0.7-4.9); Basophils % 0.1 % (0-1.3); Hematocrit 33.2 % (36.0-45.0); MPV 7.4 fL (7.6-11.3); RBC Red Blood Cell Count 4.47 M/uL (3.86-4.86)
[2021-07-31 14:52] LABS: Urine Blood Negative (Negative); Urine Glucose Negative (Negative); Urine Protein Negative (Negative); Urine Specific Gravity 1.025 (1.005-1.030)
--- NOTE | 2021-07-31 15:17 | ER ---
Nurse's Notes [facility] Name: Kyler Rushing Age: 76 yrs Sex: Female : 1945 Arrival Date: 07/31/2021 Time: 11:05 Bed 8 Private MD: Diagnosis: Subsequent non-ST elevation (NSTEMI) myocardial infarction;Nausea with vomiting, unspecified;Other hypoglycemia;Hypoglycemia, unspecified Presentation: 07/31 11:06 Chief complaint: EMS states: pt from home. we normally get a call from her 4-5 days a tw2 week. she is upset that nobody is with her when she wakes up. and normally we refuse her because nothing is wrong. today HH report low blood sugar. we got 63 mg/dL. we gave her oral glucose and then she vomit up a lot. she is a\\T\\04 at her baseline and just slow to respond normally. we gave her 4 mg IV Zofran. she reports diarrhea woke her up. Coronavirus screen: diarrhea, nausea, vomiting. Client presents with at least one sign or symptom that may indicate coronavirus-19. Standard/surgical mask placed on the client. Provider contacted for isolation considerations. Ebola Screen: Patient denies travel to an Ebola-affected area in the 21 days before illness onset. Initial Sepsis Screen: Does the patient meet any 2 criteria? No. Patient's initial sepsis screen is negative. Does the patient have a suspected source of infection? No. Patient's initial sepsis screen is negative. Risk Assessment: Do you want to hurt yourself or someone else? Patient reports no desire to harm self or others. Onset of symptoms was July 31, 2021. 11:06 Method Of Arrival: EMS: [facility] tw2 11:06 Acuity: TOVA 3 tw2 11:12 Note pt had vomit on her night gown. night gown removed and pt cleaned and placed in a tw2 gown. Triage Assessment: 11:12 General: Appears in no apparent distress. obese, Behavior is calm, cooperative, tw2 appropriate for age. Pain: Complains of pain in abdomen. GI: Reports diarrhea, nausea, vomiting, since this morning. Historical: - Allergies: 11:11 No Known Allergies; tw2 - Home Meds: 11:11 atorvastatin 40 mg Oral tab 1 tab nightly [Active]; tw2 11:11 esomeprazole magnesium 40 mg Oral cpDR 1 cap once daily [Active]; isosorbide tw2 mononitrate 30 mg Oral Tb24 1 tab once daily [Active]; levothyroxine 200 mcg tab 1 tab once daily [Active]; Plavix 75 mg Oral tab 1 tab once daily [Active]; metformin 500 mg Oral Tb24 1 tab once daily [Active]; - PMHx: 11:11 CVA; left sided weakness; Diabetes - IDDM; High Cholesterol; Hypertension; CHF; tw2 - Immunization history:: Adult Immunizations. - Social history:: Smoking status: Patient denies any tobacco usage or history of. Screenin:05 Abuse screen: Denies threats or abuse. Nutritional screening: No deficits noted. as6 Tuberculosis screening: No symptoms or risk factors identified. Fall Risk None identified. Assessment: 11:14 Reassessment: provider at bedside at this time. tw2 11:15 General: Appears in no apparent distress. uncomfortable, Behavior is calm, cooperative. as6 Pain: Complains of pain in abdomen. Neuro: Level of Consciousness is awake, alert, obeys commands, Oriented to person, place, time, situation. Cardiovascular: Capillary refill < 3 seconds Patient's skin is warm and dry. Respiratory: Airway is patent Trachea midline Respiratory effort is even, unlabored, Respiratory pattern is regular, symmetrical. GI: Reports lower abdominal pain, upper abdominal pain, diarrhea, nausea, vomiting. Derm: Skin is intact, is healthy with good turgor. 13:30 Reassessment: Patient and/or family updated on plan of care and expected duration. Pain as6 level reassessed. Patient is alert, oriented x 3, equal unlabored respirations, skin warm/dry/pink. pt still c/o nausea, notified Dr. Nair, verbal order for Zofran given. 14:04 Reassessment: pt requesting to use bedside commode at this time. ANDRE Chiu along with tw2 myself assisted pt to bedside commode. foul smelling wet brief removed from pt at this time. pt placed on bedside commode pt urinated and had a bm at this time. pt cleaned thoroughly and placed in clean brief. returned to bed at this time. 14:23 Reassessment: provider at bedside at this time giving pt and pts family update as to tw2 the results. 15:00 Reassessment: Patient appears in no apparent distress at this time. Patient and/or tw2 family updated on plan of care and expected duration. Pain level reassessed. Patient is alert, oriented x 3, equal unlabored respirations, skin warm/dry/pink. 16:09 Reassessment: Patient appears in no apparent distress at this time. Patient and/or tw2 family updated on plan of care and expected duration. Pain level reassessed. Patient is alert, oriented x 3, equal unlabored respirations, skin warm/dry/pink. 17:00 Reassessment: Patient appears in no apparent distress at this time. Patient and/or tw2 family updated on plan of care and expected duration. Pain level reassessed. Patient is alert, oriented x 3, equal unlabored respirations, skin warm/dry/pink. pt given sandwich, fruit cup and water at this time. 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 ANDRE Chiu and myself tw2 removed brief, pt cleaned, and new brief placed on pt. pt nad. 18:13 Reassessment: Patient appears in no apparent distress at this time. Patient and/or tw2 family updated on plan of care and expected duration. Pain level reassessed. Patient is alert, oriented x 3, equal unlabored respirations, skin warm/dry/pink. pt keeps taking blood pressure cuff off after it cycles. Vital Signs: 11:06 BP 160 / 87; Pulse 79; Resp 17; Temp 97.9(TE); Pulse Ox 100% on R/A; Weight 108.86 kg; tw2 Height 5 ft. 3 in. (160.02 cm); 12:00 BP 136 / 67; Pulse 79; Resp 20 S; Pulse Ox 100% on R/A; as6 13:09 BP 140 / 83; Pulse 87; Resp 18 S; Pulse Ox 100% on R/A; as6 14:18 BP 131 / 88; Pulse 85; Resp 12; Pulse Ox 95% on R/A; tw2 15:00 BP 136 / 67; Pulse 83; Resp 17; Pulse Ox 99% on R/A; tw2 16:08 BP 146 / 63; Pulse 86; Resp 17; Pulse Ox 95% on R/A; tw2 17:00 BP 111 / 71; Pulse 83; Resp 17; Pulse Ox 99% on R/A; tw2 18:01 BP 108 / 93; Pulse 83; Resp 18 S; Pulse Ox 98% on R/A; as6 11:06 Body Mass Index 42.51 (108.86 kg, 160.02 cm) tw2 ED Course: 11:05 Patient arrived in ED. iw 11:06 Rosanne De Oliveira, RN is Primary Nurse. tw2 11:10 Matthew Nair MD is Attending Physician. kdr 11:10 Triage completed. tw2 11:12 Arm band placed on. tw2 12:35 XRAY Chest (1 view) In Process Unspecified. EDMS 13:05 Bed in low position. Call light in reach. Side rails up X2. Pulse ox on. NIBP on. as6 13:44 Maintain EMS IV. Dressing intact. Site clean \\T\\ dry. Gauge \\T\\ site: 20 g LEFT FA. IV tw 2 flushes well but will not give blood at this time.. 14:43 Straight cath inserted, using sterile technique, 18 Fr. Specimen obtained. Returned tw2 clear yellow urine. Patient tolerated well. well. ANDRE Chiu served as manager internet retails sales. 15:15 Ridge Martin DO is Hospitalizing Provider. kdr 21:02 Urine Culture Sent. df1 Administered Medications: 13:47 Drug: Zofran (Ondansetron) 4 mg Route: IVP; Site: left wrist; as6 14:00 Follow up: Response: No adverse reaction as6 Outcome: 15:16 Decision to Hospitalize by Provider. kdr 21:03 Patient left the ED. bb Signatures: Dispatcher [employer] EDAK Matthew Nair MD MD kdr Diana Hurst RN ANDRE bb Sarina Boateng RN ANDRE iw Rosanne De Oliveira RN RN tw2 Jolene Gooden df1 Devin Ocasio RN RN as6
--- NOTE | 2021-07-31 15:17 | EDPHYS ---
Physician Documentation [facility] Name: Kyler Rushing Age: 76 yrs Sex: Female : 1945 Arrival Date: 07/31/2021 Time: 11:05 Bed 8 Private MD: ED Physician Matthew Nair HPI: 07/31 15:16 This 76 yrs old Black Female presents to ER via EMS with complaints of kdr Nausea/Vomiting/Diarrhea, Low Blood Sugar. 15:16 The patient presents to the emergency department with nausea, that is mild, vomiting, kdr Onset: The symptoms/episode began/occurred just prior to arrival. Possible causes: unknown. 15:21 EMS was called to the house today by home health after it was noted that her blood kdr glucose was low. In talking with the daughter who cares for the patient prior to going to work in the mornings, she noted that her sugar was 137 earlier. When home health was present, they found a glucose level around 90 and EMS reported 63 on their arrival. They administered oral glucose at that time. Subsequent to that the patient vomited. Patient seems to be at her baseline mental status. She is normally A\\T\\O x4. She is A\\T\\O x4 as well today but slow which according to EMS is her baseline.. Historical: - Allergies: 11:11 No Known Allergies; tw2 - Home Meds: 11:11 atorvastatin 40 mg Oral tab 1 tab nightly [Active]; tw2 11:11 esomeprazole magnesium 40 mg Oral cpDR 1 cap once daily [Active]; isosorbide tw2 mononitrate 30 mg Oral Tb24 1 tab once daily [Active]; levothyroxine 200 mcg tab 1 tab once daily [Active]; Plavix 75 mg Oral tab 1 tab once daily [Active]; metformin 500 mg Oral Tb24 1 tab once daily [Active]; - PMHx: 11:11 CVA; left sided weakness; Diabetes - IDDM; High Cholesterol; Hypertension; CHF; tw2 - Immunization history:: Adult Immunizations. - Social history:: Smoking status: Patient denies any tobacco usage or history of. ROS: 15:22 Constitutional: Negative for fever, chills, and weight loss, Eyes: Negative for injury, kdr pain, redness, and discharge, ENT: Negative for injury, pain, and discharge, Neck: Negative for injury, pain, and swelling, Cardiovascular: Negative for chest pain, palpitations, and edema, Respiratory: Negative for shortness of breath, cough, wheezing, and pleuritic chest pain, Back: Negative for injury and pain, : Negative for injury, bleeding, discharge, and swelling, MS/Extremity: Negative for injury and deformity, Skin: Negative for injury, rash, and discoloration, Neuro: Negative for headache, weakness, numbness, tingling, and seizure activity. Psych: Negative for depression, anxiety, suicide ideation, homicidal ideation, and hallucinations, Allergy/Immunology: Negative for hives, rash, and allergies, Hematologic/Lymphatic: Negative for swollen nodes, abnormal bleeding, and unusual bruising. 15:22 Abdomen/GI: Positive for nausea and vomiting. 15:22 Endocrine: Positive for Hypoglycemia. Exam: 12:54 ECG was reviewed by the Attending Physician. kdr 15:22 Constitutional: This is a well developed, well nourished patient who is awake, alert, kdr and in no acute distress. Head/Face: Normocephalic, atraumatic. Eyes: Pupils equal round and reactive to light, extra-ocular motions intact. Lids and lashes normal. Conjunctiva and sclera are non-icteric and not injected. Cornea within normal limits. Periorbital areas with no swelling, redness, or edema. Neck: Trachea midline, no thyromegaly or masses palpated, and no cervical lymphadenopathy. Supple, full range of motion without nuchal rigidity, or vertebral point tenderness. No Meningismus. Chest/axilla: Normal chest wall appearance and motion. Nontender with no deformity. No lesions are appreciated. Cardiovascular: Regular rate and rhythm with a normal S1 and S2. No gallops, murmurs, or rubs. Normal PMI, no JVD. No pulse deficits. Respiratory: Lungs have equal breath sounds bilaterally, clear to auscultation and percussion. No rales, rhonchi or wheezes noted. No increased work of breathing, no retractions or nasal flaring. Abdomen/GI: Soft, non-tender, with normal bowel sounds. No distension or tympany. No guarding or rebound. No evidence of tenderness throughout. Back: No spinal tenderness. No costovertebral tenderness. Full range of motion. Skin: Warm, dry with normal turgor. Normal color with no rashes, no lesions, and no evidence of cellulitis. MS/ Extremity: Pulses equal, no cyanosis. Neurovascular intact. Full, normal range of motion. Patient has a wound on her left lower extremity which is being attended to by the wound care center Neuro: Awake and alert, GCS 15, oriented to person, place, time, and situation. Cranial nerves II-XII grossly intact. Motor strength 5/5 in all extremities. Sensory grossly intact. Cerebellar exam normal. Normal gait. Psych: Awake, alert, with orientation to person, place and time. Behavior, mood, and affect are within normal limits. Vital Signs: 11:06 BP 160 / 87; Pulse 79; Resp 17; Temp 97.9(TE); Pulse Ox 100% on R/A; Weight 108.86 kg; tw2 Height 5 ft. 3 in. (160.02 cm); 12:00 BP 136 / 67; Pulse 79; Resp 20 S; Pulse Ox 100% on R/A; as6 13:09 BP 140 / 83; Pulse 87; Resp 18 S; Pulse Ox 100% on R/A; as6 14:18 BP 131 / 88; Pulse 85; Resp 12; Pulse Ox 95% on R/A; tw2 15:00 BP 136 / 67; Pulse 83; Resp 17; Pulse Ox 99% on R/A; tw2 16:08 BP 146 / 63; Pulse 86; Resp 17; Pulse Ox 95% on R/A; tw2 17:00 BP 111 / 71; Pulse 83; Resp 17; Pulse Ox 99% on R/A; tw2 18:01 BP 108 / 93; Pulse 83; Resp 18 S; Pulse Ox 98% on R/A; as6 11:06 Body Mass Index 42.51 (108.86 kg, 160.02 cm) tw2 MDM: 15:16 Patient medically screened. kdr 17:20 Data reviewed: vital signs, nurses notes, lab test result(s), radiologic studies. kdr Counseling: I had a detailed discussion with the patient and/or guardian regarding: the historical points, exam findings, and any diagnostic results supporting the discharge/admit diagnosis, lab results, radiology results, the need for outpatient follow up. 07/31 11:19 Order name: Basic Metabolic Panel; Complete Time: 14:20 kdr 07/31 11:19 Order name: CBC with Diff kdr 07/31 11:19 Order name: LFT's; Complete Time: 14:20 kdr 07/31 11:19 Order name: Magnesium; Complete Time: 14:20 kdr 07/31 11:19 Order name: NT PRO-BNP; Complete Time: 14:20 kdr 07/31 11:19 Order name: PT-INR; Complete Time: 14:00 kdr 07/31 11:19 Order name: Troponin (emerg Dept Use Only); Complete Time: 14:20 kdr 07/31 11:19 Order name: XRAY Chest (1 view); Complete Time: 14:00 kdr 07/31 12:16 Order name: Glucose, Ancillary Testing; Complete Time: 14:00 EDMS 07/31 14:38 Order name: Urine Culture kdr 07/31 14:52 Order name: Urine Dipstick-Ancillary; Complete Time: 15:10 EDMS 07/31 16:19 Order name: SARS-COV-2 RT PCR (Document "Date of Onset" if Symptomatic) iw 07/31 17:28 Order name: CBC Smear Scan EDMS 07/31 11:19 Order name: Cardiac monitoring; Complete Time: 12:31 kdr 07/31 11:19 Order name: IV Saline Lock; Complete Time: 12:31 kdr 07/31 11:19 Order name: Labs collected and sent; Complete Time: 13:38 kdr 07/31 11:19 Order name: O2 Per Protocol; Complete Time: 12:31 kdr 07/31 11:19 Order name: O2 Sat Monitoring; Complete Time: 12:31 kdr 07/31 12:08 Order name: EKG; Complete Time: 12:08 as6 07/31 14:38 Order name: Straight Cath - Urine; Complete Time: 14:54 tw2 07/31 14:38 Order name: Urine Dipstick-Ancillary (obtain specimen); Complete Time: 14:54 kdr EC:54 Rate is 85 beats/min. Rhythm is regular, Normal Sinus Rhythm with No ectopy. QRS [place] kdr is Normal. OK interval is normal. QRS interval is normal. QT interval is normal. Clinical impression: Normal ECG. Administered Medications: 13:47 Drug: Zofran (Ondansetron) 4 mg Route: IVP; Site: left wrist; as6 14:00 Follow up: Response: No adverse reaction as6 Disposition Summary: 07/31/21 15:16 Hospitalization Ordered Hospitalization Status: Observation kdr Provider: Ridge Martin Location: Telemetry/MedSurg (observation) kdr Condition: Fair kdr Problem: new kdr Symptoms: are unchanged kdr Bed/Room Type: Standard kdr Room Assignment: 215(07/31/21 18:38) dw Diagnosis - Subsequent non-ST elevation (NSTEMI) myocardial infarction kdr - Nausea with vomiting, unspecified kdr - Other hypoglycemia kdr - Hypoglycemia, unspecified kdr Forms: - Medication Reconciliation Form kdr - SBAR form kdr Signatures: Dispatcher [employer] Alexa Neely RN RN dw Matthew Nair MD MD kdr Rosanne De Oliveira RN RN tw2 Devin Ocasio RN RN as6 Corrections: (The following items were deleted from the chart) 18:38 15:16 kdr dw
--- NOTE | 2021-07-31 16:27 | P.HP ---
Certification for Inpatient Patient admitted to: Observation With expected LOS: <2 Midnights Patient will require the following post-hospital care: None Practitioner: I am a practitioner with admitting privileges, knowledge of patient current condition, hospital course, and medical plan of care. Services: Services provided to patient in accordance with Admission requirements found in Title 42 Section 412.3 of the Code of Federal Regulations Patient History Date of Service: 07/31/21 Primary Care Provider: Dr. Dunlap([place], [place]) Reason for admission: Nausea, vomiting and hypoglycemia History of Present Illness: 76-year-old -[place] female with history of diabetes mellitus type 2 insulin-dependent, hypertension, hyperlipidemia, dementia and hypothyroidism. Patient presented to the emergency room with nausea and vomiting. Mild epigastric pain noted. Nausea vomiting was transient. No evidence of shortness of breath, chest pain noted. Patient had low blood sugar episode. Blood sugars have been fluctuating as high in the 200-300 range and as low as below 100. EMS was called to the house to evaluate patient. Blood sugar was 63. Patient denied any palpitations, headaches or dizziness. In the ER patient was evaluated. Blood sugar 91. Sodium 141, potassium 4.5. Creatinine 0.79. Troponin 0 0.06. AST 67. ALT is 84. Urinalysis unremarkable. Chest x-ray unremarkable. Vital signs stable. Patient was admitted for observation. Allergies No Known Allergies Allergy (Verified 02/15/21 20:00) Home medications list reviewed: Yes Home Medications: Atorvastatin Calcium [Lipitor*] 40 mg PO BEDTIME 01/01/21 Isosorbide Mononitrate [Isosorbide Mononitrate ER] 30 mg PO DAILY 01/01/21 Levothyroxine Sodium [Levothyroxine] 200 mcg PO DAILY 01/01/21 Metformin ER [Glucophage ER*] 500 mg PO DAILY 01/01/21 Multivitamin with Iron [Daily Vitamin + Iron] 1 each PO DAILY #90 tablet 01/03/21 Pantoprazole [Protonix Tab*] 40 mg PO DAILY #90 tab 01/03/21 Sucralfate [Carafate*] 1 gm PO ACHS #120 tab 01/03/21 Insulin -Regular Human [Novolin -R*] 20 unit SQ BEDTIME 02/15/21 levoFLOXacin [Levaquin] 750 mg PO DAILY 7 Days #7 tab 02/17/21 - Past Medical/Surgical History Diabetic: Yes -: Hyperlipidemia -: Diabetes mellitus type 2 insulin-dependent -: HTN -: Hyperlipidemia -: CHF, diastolic -: Dementia -: Hypothyroidism -: GERD with hiatal hernia -: Thyroid surgery -: Right shoulder surgery Psychosocial/ Personal History: Lives at home with daughter - Family History Father -: Hypertension, Diabetes Mother -: Hypertension, Diabetes, Cancer Notes: stomach cancer - Social History Smoking Status: Never smoker Alcohol use: No CD- Drugs: No Caffeine use: Yes Place of Residence: Home Review of Systems General: Weakness, As per HPI Eyes: Unremarkable ENT: Unremarkable Respiratory: Unremarkable Cardiovascular: Unremarkable Gastrointestinal: Nausea, Vomiting, As per HPI Genitourinary: Unremarkable Musculoskeletal: Pedal edema, As per HPI Integumentary: Unremarkable Neurological: Unremarkable Lymphatics: Unremarkable Physical Examination - Studies Laboratory Data (last 24 hrs) 07/31/21 13:38: PT 11.5, INR 1.00 07/31/21 13:38: WBC 8.20, Hgb 10.4 L, Hct 33.2 L, Plt Count 327 07/31/21 13:38: Sodium 141, Potassium 4.5, BUN 24 H, Creatinine 0.79, Glucose 91, Magnesium 2.0, Total Bilirubin 0.5, AST 67 H, ALT 84 H, Alkaline Phosphatase 110 Assessment and Plan - Plan COVID: Pending Chest x-ray: COMPARISON: March 2021 FINDINGS: Mild bilateral interstitial lung opacities are unchanged. I suspect most if not all of this is chronic. Heart is mildly enlarged CT scan 02/26/2021 FINDINGS: No suspicious findings in the lung bases. Moderate-size hiatal hernia is present with approximately 25% of the stomach intrathoracic. No fluid or fluid retained within the distal esophagus. The liver, spleen, and pancreas show no suspicious findings. Gallbladder is contracted and could mask small stones. No biliary tree dilatation. Symmetric renal function is seen with no hydronephrosis or suspicious renal mass. No obstructing calculi. Nonobstructing calyx calculi seen in the lower left kidney matching the January 01 study. No pyelonephritis or acute parenchymal process. No bladder abnormalities. No adrenal abnormalities. Intraabdominal portion of the stomach is not abnormally filled with fluid or food. No gastric outlet abnormalities. The small bowel loops are unremarkable. Mild to moderate volume of stool scattered throughout the colon. Sigmoid colon is tortuous and redundant extending up to the umbilical level anteriorly. There is diverticulosis without diverticulitis in the left-side of the colon. An acute colon process is not identifiable. No suspicion for appendicitis. No free air, free fluid or inflammatory stranding. No mass or bulky lymphadenopathy. Minimal fat only umbilical hernia is present but no significant. No suspicious bony findings. Disc and bony degenerative changes are present without a pathologic component. Exam has motion degradation limitation. IMPRESSION: Contrast enhanced CT abdomen and pelvis showing no acute or emergent finding. Nonacute findings detailed in the body of the report. Physical Exam: GENERAL: The patient is a well-developed, well-nourished, in no apparent distress. Alert and oriented x3. VITAL SIGNS: Reviewed HEENT: Head is normocephalic and atraumatic. Extraocular muscles are intact. Pupils are equal, round, and reactive to light and accommodation. Nares appeared normal. Mouth is well hydrated and without lesions. Mucous membranes are moist. NECK: Supple. No carotid bruits. No lymphadenopathy or thyromegaly. LUNGS: Clear to auscultation. No crackles or wheezes are heard. HEART: Regular rate and rhythm, no appreciable gallops, rubs, murmurs or extra heart sounds ABDOMEN: Soft and nondistended. Positive bowel sounds. No hepatosplenomegaly was noted. Minimal epigastric pain. EXTREMITIES: Without any cyanosis, clubbing, rash, lesions or peripheral edema. Chronic wound to the left lower extremity. No significant edema noted. NEUROLOGIC: The patient is oriented to person, place and time. Strength and sensation are grossly intact. Face is symmetric. SKIN: Normal color, turgor and temperature. No ulcerations or rashes noted. Impression: Hypoglycemia with diabetes mellitus type 2 insulin-dependent Nausea, vomiting likely secondary to GERD with moderate hiatal hernia Chronic diastolic CHF Hypothyroidism Hypertension Dementia Anemia of chronic disease Hyperlipidemia Elevated liver function likely related to medication Plan: Hypoglycemia with diabetes mellitus type 2 insulin-dependent: Patient had hypog lycemia upon admission. Patient is taking Levemir 20 units subcu at home along with Metformin 500 mg daily. Will hold both medication. Will check A1c. May need to adjust Levemir at discharge. Continue Accu-Cheks and sliding scale. Will monitor telemetry and cardiac enzymes. Anticipate home in the next 24 hours with better blood sugar control. Nausea, vomiting likely secondary to GERD with moderate hiatal hernia: Prior CT scan shows moderate size hiatal hernia. Patient did report some nausea and vomiting. This has improved. Continue with Protonix. Chronic diastolic CHF: Continue 1500 cc/day fluid restriction and low-salt diet. Continue Imdur. Hypothyroidism: Will check TSH and free T4. Continue levothyroxine 200 mcg daily. Hypertension: Obtain and verify home medication. Dementia: Patient with dementia. Overall stable. Family at bedside. Hyperlipidemia: Hold Lipitor Elevated liver function likely related to medication: Hold Lipitor. Recheck lab tomorrow. Code Status: Patient is DO NOT RESUSCITATE DVT prophylaxis: Lovenox Advanced Care Planning-30 minutes: Home at discharge Discharge Plan: Home Plan to discharge in: 24 Hours - Advance Directives Does patient have a Living Will: No Does patient have a Durable POA for Healthcare: Yes - Code Status/Comfort Care Code Status Assessed: Yes (Patient has DNR) Time Spent Managing Pts Care (In Minutes): 55
[2021-07-31 17:27] LABS: Blood Morphology Comment NOTED (NOT SEEN); Platelet Estimate ADEQ; Poikilocytosis 2+; White Blood Cell Scan OK (OK)
[2021-07-31] MEDS ORDERED: ONDANSETRON 4 MG/2 ML VIAL IV PRN (20:30)
[2021-07-31] MEDS ORDERED: HYDRALAZINE HCL 20 MG/ML VIAL IV PRN (20:30)
[2021-07-31] MEDS: INSULIN -REGULAR HUMAN 50 UNIT/0.5 ML ML SQ SCH ×2 (20:30→21:00)
[2021-07-31] MEDS ORDERED: ACETAMINOPHEN 500 MG TAB PO PRN (20:30)
[2021-07-31 21:39] LABS: CKMB Creatine Kinase MB 2.3 ng/mL (1.0-3.6); Troponin I 0.05 ng/mL (0.0-0.045)
[2021-07-31 23:03] VITALS: BMI 38.7
[2021-08-01 04:43] VITALS: O2SAT 96
--- NOTE | 2021-08-01 05:52 | P.DS ---
Admission Date: 07/31/21 Discharge Date: 08/01/21 Primary Care Provider: Dr. Dunlap([place], [place]) Disposition: ROUTINE DISCHARGE Discharge Condition: GOOD Reason for Admission: Nausea, vomiting and hypoglycemia Consultations: none Procedures: COVID: Pending Chest x-ray: COMPARISON: March 2021 FINDINGS: Mild bilateral interstitial lung opacities are unchanged. I suspect most if not all of this is chronic. Heart is mildly enlarged CT scan 02/26/2021 FINDINGS: No suspicious findings in the lung bases. Moderate-size hiatal hernia is present with approximately 25% of the stomach intrathoracic. No fluid or fluid retained within the distal esophagus. The liver, spleen, and pancreas show no suspicious findings. Gallbladder is contracted and could mask small stones. No biliary tree dilatation. Symmetric renal function is seen with no hydronephrosis or suspicious renal mass. No obstructing calculi. Nonobstructing calyx calculi seen in the lower left kidney matching the January 01 study. No pyelonephritis or acute parenchymal process. No bladder abnormalities. No adrenal abnormalities. Intraabdominal portion of the stomach is not abnormally filled with fluid or food. No gastric outlet abnormalities. The small bowel loops are unremarkable. Mild to moderate volume of stool scattered throughout the colon. Sigmoid colon is tortuous and redundant extending up to the umbilical level anteriorly. There is diverticulosis without diverticulitis in the left-side of the colon. An acute colon process is not identifiable. No suspicion for appendicitis. No free air, free fluid or inflammatory stranding. No mass or bulky lymphadenopathy. Minimal fat only umbilical hernia is present but no significant. No suspicious bony findings. Disc and bony degenerative changes are present without a pathologic component. Exam has motion degradation limitation. IMPRESSION: Contrast enhanced CT abdomen and pelvis showing no acute or emergent finding. Nonacute findings detailed in the body of the report. Medical Problem List: Hypoglycemia with diabetes mellitus type 2 insulin-dependent Nausea, vomiting likely secondary to GERD with moderate hiatal hernia Chronic diastolic CHF Hypothyroidism Hypertension Dementia Anemia of chronic disease Hyperlipidemia Elevated liver function likely related to medication Brief History of Present Illness: 76-year-old -[place] female with history of diabetes mellitus type 2 insulin-dependent, hypertension, hyperlipidemia, dementia and hypothyroidism. Patient presented to the emergency room with nausea and vomiting. Mild epigastric pain noted. Nausea vomiting was transient. No evidence of shortness of breath, chest pain noted. Patient had low blood sugar episode. Blood sugars have been fluctuating as high in the 200-300 range and as low as below 100. EMS was called to the house to evaluate patient. Blood sugar was 63. Patient denied any palpitations, headaches or dizziness. In the ER patient was evaluated. Blood sugar 91. Sodium 141, potassium 4.5. Creatinine 0.79. Troponin 0 0.06. AST 67. ALT is 84. Urinalysis unremarkable. Chest x-ray unremarkable. Vital signs stable. Patient was admitted for observation. Hospital Course: Patient presented with hypoglycemia. Patient with history of diabetes mellitus type 2 insulin-dependent. Patient was admitted for observation. Patient takes metformin 500 mg daily and Levemir 20 units daily at home. Both medication were held during her stay. Blood sugars remain stable between 81 and 141 off both medication. Hemoglobin A1c obtained. At discharge will recommend to discontinue Metformin and Levemir. At discharge will recommend to monitor blood sugars at least twice daily. Recommend to maintain blood sugar less than 140 fasting and less than 200 after meals. If blood sugars remain above 200 then she may restart her Levemir at 5 units daily. If Levemir is restarted she will need to make sure and eat at least three meals a day. Recommend to discontinue Metformin due to GI discomfort and hypoglycemia. Continue with diabetic diet. Patient will be provided insulin- Novolog mild sliding scale to be used as needed. Education provided. Recommend to recheck hemoglobin A1c every 3 months to monitor progress. Recommend follow-up with her PCP within 1 week to follow-up his hospitalization and further her care. Patient with nausea and vomiting likely related to GERD and moderate hiatal hernia. This also may be related to her Metformin. Metformin has been discontinued. Prior CT scan showed moderate size hiatal hernia. At discharge she may continue with Protonix 40 mg daily and Carafate with meals. If this persists recommend follow-up with GI as an outpatient to further address. Patient with history of chronic diastolic CHF. At discharge patient will co ntinue with 1500 cc/day fluid restriction and low-salt diet. Patient will continue with Imdur 30 mg daily. Patient with hypothyroidism. At discharge she will continue with levothyroxine 200 mcg daily. Patient with dementia. Overall stable. Patient may take folic acid 1 mg daily. Recommend follow-up with neurology as an outpatient to further address. Patient with hyperlipidemia. LDL well controlled. Elevated liver function was noted. Lipitor was held with improvement in liver function. At discharge recommend to decrease Lipitor to 10 mg daily. Recommend to recheck fasting lipid panel and liver function test in 2 to 4 weeks to monitor her progress. Vital Signs/Physical Exam: Temp Pulse Resp BP Pulse Ox 98.1 F 89 18 93/51 L 98 08/01/21 04:00 08/01/21 04:00 08/01/21 04:00 08/01/21 04:00 08/01/21 04:00 General: Alert, In no apparent distress, Oriented x3, Cooperative HEENT: Atraumatic Neck: Supple Respiratory: Clear to auscultation bilaterally, Normal air movement Cardiovascular: Normal pulses, Regular rate/rhythm Gastrointestinal: Normal bowel sounds, No tenderness, No masses, No rebound, No guarding Musculoskeletal: No erythema, No tenderness, No warmth Integumentary: No tenderness/swelling, No erythema, No warmth, No cyanosis Neurological: Normal speech, Normal strength at 5/5 x4 extr, Normal tone Laboratory Data at Discharge: WBC 8.20 K/uL (4.3-10.9) 07/31/21 13:38 Hgb 10.4 g/dL (12.0-15.0) L 07/31/21 13:38 Hct 33.2 % (36.0-45.0) L 07/31/21 13:38 Plt Count 327 K/uL (152-406) 07/31/21 13:38 PT 11.5 SECONDS (9.5-12.5) 07/31/21 13:38 INR 1.00 07/31/21 13:38 Sodium 141 mmol/L (136-145) 07/31/21 13:38 Potassium 4.5 mmol/L (3.5-5.1) 07/31/21 13:38 BUN 24 mg/dL (7-18) H 07/31/21 13:38 Creatinine 0.79 mg/dL (0.55-1.3) 07/31/21 13:38 Glucose 91 mg/dL (74-106) 07/31/21 13:38 Magnesium 2.0 mg/dL (1.8-2.4) 07/31/21 13:38 Total Bilirubin 0.5 mg/dL (0.2-1.0) 07/31/21 13:38 AST 67 U/L (15-37) H 07/31/21 13:38 ALT 84 U/L (12-78) H 07/31/21 13:38 Alkaline Phosphatase 110 U/L (45-117) 07/31/21 13:38 Troponin I 0.05 ng/mL (0.0-0.045) H 07/31/21 20:53 Home Medications: Isosorbide Mononitrate [Isosorbide Mononitrate ER] 30 mg PO DAILY 01/01/21 Levothyroxine Sodium [Levothyroxine] 200 mcg PO DAILY 01/01/21 Pantoprazole [Protonix Tab*] 40 mg PO DAILY #90 tab 01/03/21 Sucralfate [Carafate*] 1 gm PO ACHS #120 tab 01/03/21 Atorvastatin Calcium [Lipitor] 10 mg PO BEDTIME #30 tab 08/01/21 Folic Acid 1 mg PO DAILY #90 tablet 08/01/21 Insulin Aspart [Novolog Flexpen] See Protocol SQ [facility]EC[facility] #1 packet 08/01/21 New Medications: Folic Acid 1 mg PO DAILY #90 tablet Atorvastatin Calcium [Lipitor] 10 mg PO BEDTIME #30 tab Insulin Aspart [Novolog Flexpen] See Protocol SQ [facility] #1 packet Physician Discharge Instructions: Patient presented with hypoglycemia. Patient with history of diabetes mellitus type 2 insulin-dependent. Patient was admitted for observation. Patient takes metformin 500 mg daily and Levemir 20 units daily at home. Both medication were held during her stay. Blood sugars remain stable between 81 and 141 off both medication. Hemoglobin A1c obtained. At discharge will recommend to discontinue Metformin and Levemir. At discharge will recommend to monitor blood sugars at least twice daily. Recommend to maintain blood sugar less than 140 fasting and less than 200 after meals. If blood sugars remain above 200 then she may restart her Levemir at 5 units daily. If Levemir is restarted she will need to make sure and eat at least three meals a day. Recommend to discontinue Metformin due to GI discomfort and hypoglycemia. Continue with diabetic diet. Patient will be provided insulin- Novolog mild sliding scale to be used as needed. Education provided. Recommend to recheck hemoglobin A1c every 3 months to monitor progress. Recommend follow-up with her PCP within 1 week to follow-up his hospitalization and further her care. Patient with nausea and vomiting likely related to GERD and moderate hiatal hernia. This also may be related to her Metformin. Metformin has been discontinued. Prior CT scan showed moderate size hiatal hernia. At discharge she may continue with Protonix 40 mg daily and Carafate with meals. If this persists recommend follow-up with GI as an outpatient to further address. Patient with history of chronic diastolic CHF. At discharge patient will continue with 1500 cc/day fluid restriction and low-salt diet. Patient will continue with Imdur 30 mg daily. Patient with hypothyroidism. At discharge she will continue with levothyroxine 200 mcg daily. Patient with dementia. Overall stable. Patient may take folic acid 1 mg daily. Recommend follow-up with neurology as an outpatient to further address. Patient with hyperlipidemia. LDL well controlled. Elevated liver function was noted. Lipitor was held with improvement in liver function. At discharge recommend to decrease Lipitor to 10 mg daily. Recommend to recheck fasting lipid panel and liver function test in 2 to 4 weeks to monitor her progress. Diet: ADA Activity: Fall precautions Followup: Unknown,U [Primary Care Provider] - Time spent managing pt's care (in minutes): 55
[2021-08-01 06:01] LABS: Absolute Lymphocytes (CBC) 0.4 K/uL (0.7-4.9); Basophils % 0.4 % (0-1.3); Hematocrit 30.5 % (36.0-45.0); Lymphocytes % 13.2 % (15.3-44.8); MPV 7.4 fL (7.6-11.3)
[2021-08-01 06:30] LABS: Albumin 2.9 g/dL (3.4-5.0); Bilirubin Direct 0.1 mg/dL (0-0.2); Bilirubin Total 0.4 mg/dL (0.2-1.0); Magnesium 2.1 mg/dL (1.8-2.4); Potassium 3.7 mmol/L (3.5-5.1); Protein, Total 7.5 g/dL (6.4-8.2); Thyroid Stimulating Hormone 0.775 uIU/mL (0.360-3.740)
[2021-08-01] MEDS ORDERED: PANTOPRAZOLE 40MG TABLET PO SCH (06:30)
[2021-08-01] MEDS ORDERED: LEVOTHYROXINE SOD 0.1 MG TAB PO SCH (06:30)
[2021-08-01] MEDS ORDERED: SUCRALFATE 1 GM TABLET PO SCH (07:30)
[2021-08-01] MEDS: INSULIN -REGULAR HUMAN 50 UNIT/0.5 ML ML SQ SCH (07:30)
[2021-08-01] MEDS ORDERED: POTASSIUM CL SA 10 MEQ TAB PO ONE (07:49)
[2021-08-01] MEDS ORDERED: ENOXAPARIN 40 MG/0.4 ML SQ SCH (09:00)
[2021-08-01] MEDS ORDERED: FOLIC ACID 1 MG TABLET PO SCH (09:00)
[2021-08-01] MEDS ORDERED: THIAMINE HCL 100 MG TABLET PO SCH (09:00)
[2021-08-01] MEDS ORDERED: ISOSORBIDE MONO SR 30 MG TAB PO SCH (09:00)
[2021-08-01 12:14] VITALS: BP 125/62; TEMP 97.1
--- NOTE | 2021-08-02 08:08 | EKG ---
Test Date: 2021-07-31 Test Time: 12:16:45 [employer] Administrator: EMELY MEASUREMENT RESULTS: Intervals: Rate: 85 HI: 124 QRSD: 68 QT: 386 QTc: 459 [place]: P: 62 HI: 124 QRS: -4 T: 44 INTERPRETIVE STATEMENTS: Normal sinus rhythm Normal ECG Compared to ECG 04/05/2021 11:10:01 No significant changes Electronically Signed On 08-02-21 08:03:46 ACCOUNT SUPPORT ASSOCIATE by Xavier Eugene
== END 2021-08-01 14:09 | disposition home or self-care (01) ==
LOC: ER 11:04 → ERHOLD 16:32 → 2ND 19:24
PROVIDERS: ADMIT Family Medicine; ATTEND Family Medicine
DX: E11.649 Type 2 diabetes mellitus with hypoglycemia without coma (principal); R11.2 Nausea with vomiting, unspecified; I11.0 Hypertensive heart disease with heart failure; I50.32 Chronic diastolic (congestive) heart failure; E03.9 Hypothyroidism, unspecified; F03.90 Unspecified dementia, unspecified severity, without behavioral disturbance, psychotic disturbance, mood disturbance, and anxiety; D63.8 Anemia in other chronic diseases classified elsewhere; E78.5 Hyperlipidemia, unspecified; R79.89 Other specified abnormal findings of blood chemistry; Z20.822 Contact with and (suspected) exposure to COVID-19
CPT/HCPCS: 93005; 87088; 85025 ×2; 87086; 80048 ×2; 36415; 83735 ×2; 82550; 85610; 80061; 82947 ×6; 80076 ×2; 84443; 81003; 83036; 84484 ×2; 82553; 84439; 83880; 71045; 51702; 96374; 99284; U0003; J1650; J2405 ×2; G0378 ×3

== ENCOUNTER 2021-09-11 16:20 | Emergency (ER) | payer MEDICARE, OTHER ==
--- OUTSIDE RECORDS SUMMARY | 2021-09-11 16:26 | XMS REPORT | Continuity of Care Document ---
:[address] [facility] t Address [address] [place] [address] Care Team Providers Name Role Phone Doctor Unassigned, Name Attending Clinician Unavailable Erica_Lorene Attending Clinician Unavailable DENISE Attending Clinician Unavailable Erica_F Admitting Clinician Unavailable Payers Payer Name Policy Type Policy Number Effective Date Expiration Date S jose antonio [facility] MEDICARE [id number] COMPLETE (MEDICARE REPLACEMENT HMO) AETNA [id number] 2020 00:00:00 AETNA (MEDICARE [id number] 2020 REPLACEMENT HMO) 00:00:00 MEDICARE B-[place]: [id number] 2011 [employer] 00:00:00 Problems Condition Condition Condition Status Onset Resolution Last Treating Co mments Source Name Details Category Date Date Treatment Clinician Date Dementia Dementia Problem Active [facility] 6-10 da 00:00: Medical 00 Group Hypothyroi Hypothyroi Problem Active M [facility] dism dism 7-06 da 00:00: Medical 00 Group Type 2 [...] of Kidney 00:00: Medi marielle 00 Group Esophageal Esophageal Disease Active 2004-09 U nivers reflux reflux 0-27 ity of 00:00: [place] 00 Medical Branch Angina Angina Disease Active 2004-09 Overview: Univer s pectoris pectoris 0-27 Formattin ity of 00:00: g of this [place] note Medical might be Branch different from the original. 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 ICD10 Diagnosis Term [employer]otive Heavy Mechanic Utility Hypothyroi Hypothyroi Disease Active 2004-09 Overview : Univers dism dism 0-27 Formattin ity of 00:00: g of this [place] note Medical might be Branch different from the original. ICD10 Diagnosis Term [employer] Heavy Mechanic Utility Acquired Acquired Problem Active [facility] hypothyroi [...] Comments Source Sex Assigned At [birth year] [facility] 00:00:00 00:00:00 Medical Branch Smoking Status Start Date Stop Date Source Unknown if ever smoked [facility] Former [facility]oker [facility] Medications Ordered Filled Start [...] Group gauge x gauge x gauge x 01/22" USE 01/22" USE 01/22" USE ONCE A DAY ONCE A DAY [...] Immunizations Ordered Filled Immunization Date Status Comments [facility] e Immunization Name Name influenza, influenza, 2021-07-13 Completed [facility] injectable, injectable, 00:00:00 Group quadrivalent quadrivalent SARS-COV-2 COVID-19 2020-11-17 Completed [facility] of RISHABH/J&J VACCINE 00:00:00 [place] [facility] influenza, influenza, 2020-06-17 Completed [facility] injectable, injectable, 00:00:00 Group quadrivalent quadrivalent influenza, high influenza, high 2019-07-15 Completed [facility] dose seasonal dose seasonal 16:23:03 Group Vital Signs Vital Name Observation Time Observation Value Comments Source BP Diastolic 2021-07-13 00:00:00 87 mm[Hg] [facility] Height 2021-07-13 00:00:00 62 [in_i] [facility] BMI (Body Mass 2021-07-13 00:00:00 41.8 kg/m2 [facility] Medical Index) Group BP Systolic 2021-07-13 00:00:00 140 mm[Hg] [facility] Body Weight 2021-07-13 00:00:00 3656 [oz_av] [facility] BP Diastolic 2021 00:00:00 80 mm[Hg] [facility] Height 2021 00:00:00 62 [in_i] [facility] BMI (Body Mass 2021 00:00:00 40.6 kg/m2 [facility] Medical Index) Group BP Systolic 2021 [...] Mass 2020-11-21 00:00:00 38.8 kg/m2 [facility] Medical Index) Group BP Systolic 2020-11-21 00:00:00 158 mm[Hg] [facility] Body Weight 2020-11-21 00:00:00 3393 [oz_av] [facility] BP Diastolic 2020-07-11 00:00:00 95 mm[Hg] [facility] Height 2020-07-11 00:00:00 62 [in_i] [facility] BMI (Body Mass 2020-07-11 00:00:00 37.7 kg/m2 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) Group BP Systolic 2020-07-11 00:00:00 151 mm[Hg] [facility] Body Weight 2020-07-11 00:00:00 3297 [oz_av] [facility] Height 2020-05-10 00:00:00 62 [in_i] [facility] BMI (Body Mass 2020-05-10 00:00:00 37.9 kg/m2 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) Group Body Weight 2020-05-10 00:00:00 3312 [oz_av] [facility] BP Diastolic 2020-04-11 00:00:00 87 mm[Hg] [facility] Height 2020-04-11 00:00:00 62 [in_i] [facility] BMI (Body Mass 2020-04-11 00:00:00 37.9 kg/m2 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) Group BP Systolic 2020-04-11 00:00:00 [...] BMI (Body Mass 2020-02-08 00:00:00 41.4 kg/m2 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) Group BP Systolic 2020-02-08 00:00:00 151 mm[Hg] [facility] Body Weight 2020-02-08 00:00:00 3621 [oz_av] [facility] BP Diastolic 2020-01-12 00:00:00 71 mm[Hg] [facility] Height 2020-01-12 00:00:00 62 [in_i] [facility] BMI (Body Mass 2020-01-12 00:00:00 40.6 kg/m2 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) Group BP Systolic 2020-01-12 00:00:00 128 mm[Hg] [facility] Body Weight 2020-01-12 00:00:00 222.1 [lb_av] [facility] BP Diastolic 2019-11-04 00:00:00 76 mm[Hg] [facility] Height 2019-11-04 00:00:00 62 [in_i] [facility] BMI (Body Mass 2019-11-04 00:00:00 41.9 kg/m2 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) Group BP Systolic 2019-11-04 00:00:00 125 mm[Hg] [facility] Body Weight 2019-11-04 00:00:00 3664 [oz_av] [facility] BP Diastolic 2019-08-17 00:00:00 94 mm[Hg] [facility] Height 2019-08-17 00:00:00 62 [in_i] [facility] BMI (Body Mass 2019-08-17 00:00:00 42.4 kg/m2 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) Group BP Systolic 2019-08-17 00:00:00 162 mm[Hg] [facility] Body Weight 2019-08-17 00:00:00 3712 [oz_av] [facility] BP Diastolic 2019-07-15 00:00:00 93 mm[Hg] [facility] Height 2019-07-15 00:00:00 62 [in_i] [facility] BMI (Body Mass 2019-07-15 00:00:00 43.2 kg/m2 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) Group BP Systolic 2019-07-15 00:00:00 167 mm[Hg] [facility] Body Weight 2019-07-15 00:00:00 3780 [oz_av] [facility] BP Diastolic 2019-07-02 00:00:00 86 mm[Hg] [facility] Height 2019-07-02 00:00:00 62 [in_i] [facility] BMI (Body Mass 2019-07-02 00:00:00 43.5 kg/m2 [facility] Medical Index) Group BP Systolic 2019-07-02 00:00:00 144 mm[Hg] [facility] Body Weight 2019-07-02 00:00:00 3808 [oz_av] [facility] BP Diastolic 2019-06-08 00:00:00 86 mm[Hg] [facility] Height 2019-06-08 00:00:00 62 [in_i] [facility] BMI (Body Mass 2019-06-08 00:00:00 42.1 kg/m2 [facility] Medical Index) Group BP Systolic 2019-06-08 00:00:00 144 mm[Hg] [facility] Body Weight 2019-06-08 00:00:00 3680 [oz_av] [facility] BP Diastolic 2019-06-02 00:00:00 91 mm[Hg] [facility] Height 2019-06-02 00:00:00 62 [in_i] [facility] BMI (Body Mass 2019-06-02 00:00:00 41.9 kg/m2 [facility] Medical Index) Group BP Systolic 2019-06-02 00:00:00 145 mm[Hg] [facility] Body Weight 2019-06-02 00:00:00 3665 [oz_av] [facility] BP Diastolic 2019-04-14 00:00:00 76 mm[Hg] [facility] Height 2019-04-14 00:00:00 62 [in_i] [facility] BMI (Body Mass 2019-04-14 00:00:00 43 kg/m2 [facility] Medical Index) Group BP Systolic 2019-04-14 00:00:00 134 mm[Hg] [facility] Body Weight 2019-04-14 00:00:00 3760 [oz_av] [facility] BP Diastolic 2019-02-03 00:00:00 80 mm[Hg] [facility] Height 2019-02-03 00:00:00 62 [in_i] [facility] BMI (Body Mass 2019-02-03 00:00:00 43.3 kg/m2 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) Group BP Systolic 2019-02-03 00:00:00 143 mm[Hg] [facility] Body Weight 2019-02-03 00:00:00 236.9 [lb_av] [facility] Height 2018-10-30 00:00:00 62 [in_i] [facility] BMI (Body Mass 2018-10-30 00:00:00 44.8 kg/m2 [facility] 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) Group BP Systolic 2018-10-30 00:00:00 152 mm[Hg] [facility] Body Weight 2018-10-30 00:00:00 3923 [oz_av] [facility] Procedures Procedure Date / Time Performing Source Performed Clinician RADIOLOGY DOCUMENTATION 2021-07-28 Doctor [facility] of 06:01:00 Unassigned, No [place] Medical Name Branch MRI, shoulder, w/o contrast 2021-07-13 [facility] 00:00:00 Group XR, shoulder 2021-06-26 [facility] 00:00:00 Group unlisted imaging order 2020-03-31 [facility] 00[facility]00:00 Group XR, ribs, bilateral 2020-03-31 [facility] 00:00:00 Group MRI, brain, w/o contrast 2019[facility]07-[facility]00 Group US, duplex, carotid artery 2019-07-02 [facility] 00:00:00 Group US, echocardiogram, transthoracic, 2019-07-02 [facility] complete, w/ color flow 00:00:00 Group holter monitor 2019-07-02 [facility] 00:00:00 Group holter monitor 2019-06-29 [facility] 00:00:00 Group MAMMO, screening, digital, 2019-06-02 [facility] bilateral 00:00:00 Group MAMMO, screening, digital, 2019-04-14 [facility] bilateral 00:00:00 Group Thyroid Surgery 1979-09-09 [facility] 00:00:00 Group Hysterectomy [facility] Shoulder Joint Surgery [facility] Appendectomy [facility] Eye Surgery Procedure [facility] Esophagogastroduodenoscopy (Surg) [facility] Encounters Start End Encounter Admission Attending Care Care Encounter Source Date/Time Date/Time Type Type Clinicians Facility Department ID 2021-07-28 2021-07-28 Orders Doctor LUZ [id number] Univers 00:00:00 00:00:00 Only Unassigned, CHELSEA [id number] ity of Archie [facility] [id number] Aleksandar as [id number] [place] [id number] Branch 2021-07-13 2021-07-13 Outpatient Zuniga_F [facility] [id number] [facility] 04:49:00 04:49:00 112 da [facility] Group 2021-07-13 2021-07-13 Outpatient Zuniga_F MMG [facility] [id number] [place] 04:49:00 04:49:00 104 [facility] 2021-07-13 2021-07-13 Outpatient Zuniga_F MMG [facility] [id number] [place] 04:49:00 04:49:00 108 [facility] 2021-07-13 2021-07-13 Outpatient Zuniga_F [facility] [id number] [place] 04:49:00 04:49:00 230 da [facility] 2021-07-13 2021-07-13 George [facility] [place] - [id number] [facility] 00:00:00 00:00:00 Dallas Borrego MD: [address] [place] [address] [address], [place] [address] , Ph. 2021-06-02 2021-06-02 Outpatient Zuniga_F [facility] MM [id number] [place] 02:29:00 02:29:00 011 da [facility] 2021 2021 Outpatient Zuniga_F MMG [facility] [id number] [place] 04:09:00 04:09:00 802 [facility] 2021 2021 [facility] [place] - [id number] [facility] 00:00:00 00:00:00 Dallas Borrego MD: [address] [address], [place] [address] , Ph. 2021-02-22 2021-02-22 Outpatient INDER WALKER [facility] [id number] [place] 00:00:00 00:00:[address] 2021-01-29 2021-01-29 Outpatient Zuniga_F MMG [facility] [id number] [place] 01:05:00 01:05:00 523 da [facility] 2021-01-12 2021-01-12 Outpatient Zuniga_F MMG [facility] [id number] [place] 04:49:00 04:49:00 506 [facility] 2021-01-12 2021-01-12 Outpatient Zuniga_F MMG [facility] [id number] [place] 04:49:00 04:49:00 507 Medical Group 2021-01-12 2021-01-12 George [facility] [place] - [id number] [place] 00:00:00 00:00:00 Dallas Borrego Medical MD: [address] [place] [address], [place] [address] , Ph. 2020-12-25 2020-12-25 Outpatient Zuniga_F MMG [facility] [id number] [place] 01:05:00 01:05:00 418 da [facility] 2020-11-21 2020-11-21 Outpatient Zuniga_F MMG [facility] [id number] [place] 04:39:00 04:39:00 315 [facility] 2020-11-21 2020-11-21 Outpatient Zuniga_F MMG [facility] [id number] [place] 04:39:00 04:39:00 416 [facility] 2020-11-21 2020-11-21 Outpatient Zuniga_F MMG [facility] [id number] [place] 04:39:00 04:39:00 417 da [facility] 2020-11-21 2020-11-21 [facility] [place] - [id number] [place] 00:00:00 00:00:00 Dallas Borrego Medical MD: [address] [place] [address] [address], [place] [address] , Ph. 2020-10-25 2020-10-25 Outpatient Zuniga_F MMG [facility] [id number] [place] 01:02:00 01:02:00 216 [facility] 2020-07-27 2020-07-27 Outpatient Zuniga_F MMG [facility] [id number] [place] 02:43:00 02:43:00 105 [facility] 2020-07-27 2020-07-27 Outpatient Zuniga_F MMG [facility] [id number] [place] 02:43:00 02:43:00 111 Medical Group 2020-07-27 2020-07-27 Outpatient Zuniga_F MMG [facility] [id number] [place] 02:43:00 02:43:00 118 [facility] 2020-07-27 2020-07-27 Outpatient Zuniga_F MMG [facility] [id number] [place] 02:43:00 02:43:00 130 [facility] 2020-07-27 2020-07-27 Outpatient Zuniga_F MMG [facility] [id number] [place] 02:43:00 02:43:00 201 [facility] 2020-07-27 2020-07-27 Outpatient Zuniga_F MMG [facility] [id number] [place] 02:43:00 02:43:00 202 [facility] 2020-07-11 2020-07-11 Outpatient Zuniga_F MMG [facility] [id number] [place] 10:52:00 10:52:00 102 [facility] 2020-07-11 2020-07-11 Outpatient Zuniga_F MMG [facility] [id number] [place] 10:52:00 10:52:00 105 [facility] 2020-07-11 2020-07-11 George [facility] [place] - [id number] [place] 00:00:00 00:00:00 Dallas Borrego MD: [address] [address], [place] [address] , Ph. 2020-07-08 2020-07-08 Outpatient Zuniga_F MMG [facility] [id number] [place] 11:19:00 11:19:00 030 da Medical Group 2020-07-06 2020-07-06 Outpatient Zuniga_F MMG [facility] [id number] [place] 09:51:00 09:51:00 028 Medical Group 2020-06-22 2020-06-22 Outpatient Zuniga_F MMG [facility] [id number] [place] 09:47:00 09:47:00 014 Medical Group 2020-05-11 2020-05-11 Outpatient Zuniga_F MMG [facility] [id number] [place] 02:28:00 02:28:00 911 Medical Group 2020-05-10 2020-05-10 Outpatient Zuniga_F MMG [facility] [id number] [place] 08:37:00 08:37:00 901 Medical Group 2020-05-10 2020-05-10 George [facility] [place] - [id number] [place] 00:00:00 00:00:00 Dallas Borrego MD: [address] [address], [place] [address] , Ph. 2020-05-09 2020-05-09 Outpatient Zuniga_F MMG [facility] [id number] [place] 11:44:00 11:44:00 831 Medical Group 2020-04-27 2020-04-27 Outpatient INDER WALKER [facility] [id number] [place] 00:00:00 00:00:[address] 2020-04-11 2020-04-11 Outpatient Zuniga_F MMG [facility] [id number] [place] 06:18:00 06:18:00 803 [facility] 2020-04-11 2020-04-11 George [facility] [place] - [id number] [place] 00:00:00 00:00:00 Dallas Borrego Medical MD: [address] [place] [address] , Ph. 2020-04-04 2020-04-04 Outpatient Zuniga_F MMG [facility] [id number] [place] 03:59:00 03:59:00 727 da [facility] 2020-03-31 2020-03-31 Outpatient Zuniga_F MMG [facility] [id number] [place] 06:45:00 06:45:00 723 da [facility] 2020-03-31 2020-03-31 Vanessa MM[facility] [place] - [id number] M at[facility]or 00:00:00 00:00:00 Discovery onofre Chandra PLEATER: [address] [place] [address] , Ph. 2020-02-12 2020-02-12 Outpatient Zuniga_F MMG [facility] [id number] [place] 04:42:00 04:42:00 605 Medical Group 2020-02-08 2020-02-08 Outpatient Zuniga_F MMG [facility] [id number] [place] 06:20:00 06:20:00 601 [facility] 2020-02-08 2020-02-08 George [facility] [place] - [id number] [place] 00:00:00 00:00:00 Dallas Borrego MD: [address] [place] [address] , Ph. 2020-02-05 2020-02-05 Outpatient Zuniga_F MMG [facility] [id number] [place] 03:20:00 03:20:00 529 [facility] 2020-01-28 2020-01-28 Outpatient Zuniga_F MMG [facility] [id number] [place] 01:20:00 01:20:00 527 [facility] 2020-01-27 2020-01-27 Outpatient Zuniga_F MMG [facility] [id number] [place] 01:05:00 01:05:00 520 [facility] 2020-01-26 2020-01-26 Outpatient Zuniga_F MMG [facility] [id number] [place] 02:01:00 02:01:00 519 [facility] 2020-01-22 2020-01-22 Outpatient Zuniga_F MMG [facility] [id number] [place] 02:44:00 02:44:00 515 [facility] 2020-01-21 2020-01-21 Outpatient Zuniga_F MMG [facility] [id number] [place] 04:53:00 04:53:00 514 da [facility] 2020-01-18 2020-01-18 Outpatient Zuniga_F MMG [facility] [id number] [place] 06:00:00 06:00:00 511 [facility] 2020-01-12 2020-01-12 Outpatient Zuniga_F MMG [facility] [id number] [place] 11:06:00 11:06:00 505 [facility] 2020-01-12 2020-01-12 Outpatient Zuniga_F MMG [facility] [id number] [place] 11:06:00 11:06:00 506 [facility] 2020-01-12 2020-01-12 Outpatient Zuniga_F MMG [facility] [id number] [place] 11:06:00 11:06:00 507 [facility] 2020-01-12 2020-01-12 Outpatient Zuniga_F MMG [facility] [id number] [place] 11:06:00 11:06:00 509 da [facility] 2020-01-12 2020-01-12 Fede [facility] [place] - [id number] M atagor 00:00:00 00:00:00 Alexandru Sanchez MD: Medical Medica [address], [place] [address] , Ph. [phone] 2020-01-11 2020-01-11 Mary Ann [facility] [place] - [id number] M atagor 00:00:00 00:00:00 Merly Toscano Medical Medical PLEATER: [address] [facility] [address], [place] [address] , Ph. 2020-01-04 2020-01-04 George MM [place] - [id number] [place] 00:00:00 00:00:00 Carlos A Contreras Medical Medical MD: [address] [facility] [address], [place] [address] , Ph. 2019-12-31 2019-12-31 Outpatient Zuniga_F MMG MM [id number] [place] 10:35:00 10:35:00 427 da [facility] Group 2019-12-31 2019-12-31 Outpatient Zuniga_F MMG MM [id number] [place] 10:35:00 10:35:00 428 da [facility] Group 2019-12-31 2019-12-31 Outpatient Zuniga_F MMG [facility]G [id number] [place] 10:35:00 10:35:00 429 [facility] 2019-12-31 2019-12-31 Outpatient Zuniga_F MMG [facility]G [id number] [place] 10:35:00 10:35:00 430 da [facility] 2019-12-31 2019-12-31 Outpatient Zuniga_F MMG [facility]G [id number] [place] 10:35:00 10:35:00 502 da [facility] 2019-12-31 2019-12-31 Outpatient Zuniga_F MMG [facility] [id number] [place] 10:35:00 10:35:00 504 [facility] 2019-12-28 2019-12-28 Outpatient Zuniga_F MMG [facility] [id number] [place] 10:23:00 10:23:00 420 [facility] 2019-11-05 2019-11-05 Outpatient Zuniga_F MMG [facility] [id number] [place] 09:37:00 09:37:00 227 da [facility] Group 2019-11-04 2019-11-04 Outpatient Zuniga_F [facility] [id number] [place] 03:38:00 03:38:00 226 Medical Group 2019-11-04 2019-11-04 George [facility] [place] - [id number] [place] 00:00:00 00:00:00 Dallas Borrego MD: [address] [address], [place] [address] , Ph. 2019-11-03 2019-11-03 Outpatient Zuniga_F [facility] [id number] [place] 06:29:00 06:29:00 225 Medical Group 2019-08-17 2019-08-17 George [facility] [place] - [id number] [place] 00:00:00 00:00:00 Dallas Borrego MD: [address] [place] [address], [place] [address] , Ph. 2019-07-15 2019-07-15 George [facility] [place] - [id number] [place] 00:00:00 00:00:00 Dallas Borrego MD: [address] [place] [address], [place] [address] , Ph. 2019-07-02 2019-07-02 George [facility] [place] - [id number] [place] 00:00:00 00:00:00 Dallas Borrego MD: [address] [address], [place] [address] , Ph. 2019-06-08 2019-06-08 George [facility] [place] - [id number] [place] 00:00:00 00:00:00 Dallas Borrego MD: [address] [place] [address], [place] [address] , Ph. 2019-06-02 2019-06-02 George [facility] [place] - [id number] [place] 00:00:00 00:00:00 Dallas Borrego MD: [address] [place] [address] [address], [place] [address] , Ph. 2019-04-14 2019-04-14 George [facility] [place] - [id number] [place] 00:00:00 00:00:00 Dallas Borrego MD: [address] [place] [address] [address], [place] [address] , Ph. 2019-04-08 2019-04-08 George [facility] [place] - [id number] [place] 00:00:00 00:00:00 Dallas Borrego MD: [address] [place] [address], [place] [address] , Ph. 2019-02-03 2019-02-03 Randell [facility] [place] - [id number] M atagor 00:00:00 00:00:00 Discovery onofre Blum MD: [address] [place] [address] [address], [place] [address] , Ph. 2018-10-30 2018-10-30 George [facility] [place] - [id number] [place] 00:00:00 00:00:00 Dallas Borrego MD: [address] [place] [address], [place] [address] , Ph. Results Test Description Test Time Test Comments Results Result Comments Source Hemoglobin A1c [Mass/volume] in Blood 2021 02:07:00 Test Item Value Reference Range Interpretation Comme nts Hemoglobin A1c [Mass/volume] in Blood (test code = 43971-3) 6.7 % 4.0-6.0 [facility] - Serum or Plasma [...] Plasma (test code = 6768-6) [facility] - Serum or [id number] 02:07:00 Test Item Value Reference Range Interpretation Comments cholesterol level (test code = 111 mg/dL 150-200 L cholesterol level) triglycerides level (test code = 66 mg/dL <150 triglycerides level) HDL cholesterol (test code = HDL 62 mg/dL >65 L cholesterol) LDL cholesterol direct (test code = 44 mg/dL <100 LDL cholesterol direct) cholesterol risk ratio (test code = 1.790 cholesterol risk ratio) [facility] W Auto Differential panel - [id number] 03:00:00 Test Item Value Reference Range Interpretation Comments white blood count (test code = 7.5 K/uL 4.0-11.5 white blood count) red blood count (test code = red 2.90 M/uL 3.80-5.20 L blood count) hemoglobin (test code = 8.9 g/dL 10.5-15.7 L hemoglobin) hematocrit (test code = 27.9 % 34.0-50.0 L hematocrit) MCV [Entitic volume] (test code = 96.2 fL 86-100 28788-7) mean corpuscular hemoglobin (test 30.7 pg 26.2-33.4 [...] 44.4-80.1 leukocytes in Blood (test code = 84949-3) Immature granulocytes [#/volume] 0.0 K/uL 0.0-0.03 in Blood (test code = 65408-0) lymphocyte% (test code = 15.9 % 10.0-50.0 lymphocyte%) mono % (test code = mono %) 6.0 % 3.6-12.0 eos % (test code = eos %) 0.8 % 0.0-5.4 Basophils/100 leukocytes in 0.1 % 0.1-1.2 Unspecified specimen (test code = 06473-7) Band form neutrophils [#/volume] 5.73 K/uL 1.56-6.13 in Blood (test code = 73526-2) Lymphocytes [#/volume] in 1.2 K/uL 1.18-3.74 Unspecified specimen by Automated count (test code = 50950-3) mono # (test code = mono #) 0.45 K/uL 0.24-0.86 eos # (test code = eos #) 0.06 K/uL 0.04-0.36 basophil # (test code = basophil 0.01 K/uL 0.01-0.08 #) NRBC% (test code = NRBC%) 1 /100 WBC 0-0.2 H NRBC# (test code = NRBC#) 0 K/uL [facility] metabolic 2000 panel - Serum or [id number] 03:00:00 Test Item Value Reference Range Interpretation [...] = 7.8 mg/dL 8.8-10.2 L calcium level) [facility] W Auto Differential panel - [id number] 03:00:00 Test Item Value Reference Range Interpretation Comments white blood count (test code = 7.5 K/uL 4.0-11.5 white blood count) red blood count (test code = red 2.90 M/uL 3.80-5.20 L blood count) hemoglobin (test code = 8.9 g/dL 10.5-15.7 L hemoglobin) hematocrit (test code = 27.9 % 34.0-50.0 L hematocrit) MCV [Entitic volume] (test code = 96.2 fL 86-100 32220-2) mean corpuscular hemoglobin (test 30.7 pg 26.2-33.4 [...] 44.4-80.1 leukocytes in Blood (test code = 89769-3) Immature granulocytes [#/volume] 0.0 K/uL 0.0-0.03 in Blood (test code = 71675-7) lymphocyte% (test code = 15.9 % 10.0-50.0 lymphocyte%) mono % (test code = mono %) 6.0 % 3.6-12.0 eos % (test code = eos %) 0.8 % 0.0-5.4 Basophils/100 leukocytes in 0.1 % 0.1-1.2 Unspecified specimen (test code = 76120-6) Band form neutrophils [#/volume] 5.73 K/uL 1.56-6.13 in Blood (test code = 68556-7) Lymphocytes [#/volume] in 1.2 K/uL 1.18-3.74 Unspecified specimen by Automated count (test code = 88906-8) mono # (test code = mono #) 0.45 K/uL 0.24-0.86 eos # (test code = eos #) 0.06 K/uL 0.04-0.36 basophil # (test code = basophil 0.01 K/uL 0.01-0.08 #) NRBC% (test code = NRBC%) 1 /100 WBC 0-0.2 H NRBC# (test code = NRBC#) 0 K/uL [facility] metabolic 2000 panel - Serum or [id number] 03:00:00 Test Item Value Reference Range Interpretation [...] = 7.8 mg/dL 8.8-10.2 L calcium level) [facility] W Auto Differential panel - [id number] 03:00:00 Test Item Value Reference Range Interpretation Comments white blood count (test code = 7.5 K/uL 4.0-11.5 white blood count) red blood count (test code = red 2.90 M/uL 3.80-5.20 L blood count) hemoglobin (test code = 8.9 g/dL 10.5-15.7 L hemoglobin) hematocrit (test code = 27.9 % 34.0-50.0 L hematocrit) MCV [Entitic volume] (test code = 96.2 fL 86-100 09172-3) mean corpuscular hemoglobin (test 30.7 pg 26.2-33.4 [...] 44.4-80.1 leukocytes in Blood (test code = 57620-5) Immature granulocytes [#/volume] 0.0 K/uL 0.0-0.03 in Blood (test code = 14377-8) lymphocyte% (test code = 15.9 % 10.0-50.0 lymphocyte%) mono % (test code = mono %) 6.0 % 3.6-12.0 eos % (test code = eos %) 0.8 % 0.0-5.4 Basophils/100 leukocytes in 0.1 % 0.1-1.2 Unspecified specimen (test code = 41409-7) Band form neutrophils [#/volume] 5.73 K/uL 1.56-6.13 in Blood (test code = 71538-7) Lymphocytes [#/volume] in 1.2 K/uL 1.18-3.74 Unspecified specimen by Automated count (test code = 13402-7) mono # (test code = mono #) 0.45 K/uL 0.24-0.86 eos # (test code = eos #) 0.06 K/uL 0.04-0.36 basophil # (test code = basophil 0.01 K/uL 0.01-0.08 #) NRBC% (test code = NRBC%) 1 /100 WBC 0-0.2 H NRBC# (test code = NRBC#) 0 K/uL [facility] metabolic 2000 panel - Serum or Uhltho4555-28-70 03:00:00 Test Item Value Reference Range Interpretation [...] = 7.8 mg/dL 8.8-10.2 L calcium level) [facility] W Auto Differential panel - [id number] 12:59:00 Test Item Value Reference Range Interpretation Comments white blood count (test code = 8.7 K/uL 4.0-11.5 white blood count) red blood count (test code = red 3.00 M/uL 3.80-5.20 L blood count) hemoglobin (test code = 9.1 g/dL 10.5-15.7 L hemoglobin) hematocrit (test code = 28.4 % 34.0-50.0 L hematocrit) MCV [Entitic volume] (test code = 94.7 fL 86-100 16614-3) mean corpuscular hemoglobin (test 30.3 pg 26.2-33.4 [...] 44.4-80.1 leukocytes in Blood (test code = 88994-6) Immature granulocytes [#/volume] 0.0 K/uL 0.0-0.03 H in Blood (test code = 63799-9) lymphocyte% (test code = 12.6 % 10.0-50.0 lymphocyte%) mono % (test code = mono %) 6.0 % 3.6-12.0 eos % (test code = eos %) 0.6 % 0.0-5.4 Basophils/100 leukocytes in 0.2 % 0.1-1.2 Unspecified specimen (test code = 41472-6) Band form neutrophils [#/volume] 6.95 K/uL 1.56-6.13 H in Blood (test code = 94847-2) Lymphocytes [#/volume] in 1.1 K/uL 1.18-3.74 L Unspecified specimen by Automated count (test code = 21949-1) mono # (test code = mono #) 0.52 K/uL 0.24-0.86 eos # (test code = eos #) 0.05 K/uL 0.04-0.36 basophil # (test code = basophil 0.02 K/uL 0.01-0.08 #) NRBC% (test code = NRBC%) 1 /100 WBC 0-0.2 H NRBC# (test code = NRBC#) 0 K/uL [facility] metabolic 2000 panel - Serum or Iouteg1059-37-36 12:59:00 Test Item Value Reference Range Interpretation [...] = 7.8 mg/dL 8.8-10.2 L calcium level) [facility] W Auto Differential panel - [id number] 12:59:00 Test Item Value Reference Range Interpretation Comments white blood count (test code = 8.7 K/uL 4.0-11.5 white blood count) red blood count (test code = red 3.00 M/uL 3.80-5.20 L blood count) hemoglobin (test code = 9.1 g/dL 10.5-15.7 L hemoglobin) hematocrit (test code = 28.4 % 34.0-50.0 L hematocrit) MCV [Entitic volume] (test code = 94.7 fL 86-100 86151-0) mean corpuscular hemoglobin (test 30.3 pg 26.2-33.4 [...] 44.4-80.1 leukocytes in Blood (test code = 11029-7) Immature granulocytes [#/volume] 0.0 K/uL 0.0-0.03 H in Blood (test code = 19653-8) lymphocyte% (test code = 12.6 % 10.0-50.0 lymphocyte%) mono % (test code = mono %) 6.0 % 3.6-12.0 eos % (test code = eos %) 0.6 % 0.0-5.4 Basophils/100 leukocytes in 0.2 % 0.1-1.2 Unspecified specimen (test code = 92678-8) Band form neutrophils [#/volume] 6.95 K/uL 1.56-6.13 H in Blood (test code = 24332-9) Lymphocytes [#/volume] in 1.1 K/uL 1.18-3.74 L Unspecified specimen by Automated count (test code = 04278-1) mono # (test code = mono #) 0.52 K/uL 0.24-0.86 eos # (test code = eos #) 0.05 K/uL 0.04-0.36 basophil # (test code = basophil 0.02 K/uL 0.01-0.08 #) NRBC% (test code = NRBC%) 1 /100 WBC 0-0.2 H NRBC# (test code = NRBC#) 0 K/uL [facility] metabolic 2000 panel - Serum or [id number] 12:59:00 Test Item Value Reference Range Interpretation [...] = 7.8 mg/dL 8.8-10.2 L calcium level) [facility] W Auto Differential panel - [id number] 12:59:00 Test Item Value Reference Range Interpretation Comments white blood count (test code = 8.7 K/uL 4.0-11.5 white blood count) red blood count (test code = red 3.00 M/uL 3.80-5.20 L blood count) hemoglobin (test code = 9.1 g/dL 10.5-15.7 L hemoglobin) hematocrit (test code = 28.4 % 34.0-50.0 L hematocrit) MCV [Entitic volume] (test code = 94.7 fL 86-100 04926-8) mean corpuscular hemoglobin (test 30.3 pg 26.2-33.4 [...] 44.4-80.1 leukocytes in Blood (test code = 35520-5) Immature granulocytes [#/volume] 0.0 K/uL 0.0-0.03 H in Blood (test code = 72822-2) lymphocyte% (test code = 12.6 % 10.0-50.0 lymphocyte%) mono % (test code = mono %) 6.0 % 3.6-12.0 eos % (test code = eos %) 0.6 % 0.0-5.4 Basophils/100 leukocytes in 0.2 % 0.1-1.2 Unspecified specimen (test code = 53465-6) Band form neutrophils [#/volume] 6.95 K/uL 1.56-6.13 H in Blood (test code = 65027-9) Lymphocytes [#/volume] in 1.1 K/uL 1.18-3.74 L Unspecified specimen by Automated count (test code = 30163-5) mono # (test code = mono #) 0.52 K/uL 0.24-0.86 eos # (test code = eos #) 0.05 K/uL 0.04-0.36 basophil # (test code = basophil 0.02 K/uL 0.01-0.08 #) NRBC% (test code = NRBC%) 1 /100 WBC 0-0.2 H NRBC# (test code = NRBC#) 0 K/uL [facility] metabolic 2000 panel - Serum or Gpugyv3995-73-48 12:59:00 Test Item Value Reference Range Interpretation [...] mg/dL 8.8-10.2 L calcium level) [facility] - Kxtfk8639-95-96 10:15:00 Test Item Value Reference Range Interpretation Comments hemoglobin (test code = hemoglobin) 9.4 g/dL 10.5-15.7 hematocrit (test code = hematocrit) 29.4 % 34.0-50.0 [facility] - [id number] 10:15:00 Test Item Value Reference Range Interpretation Comments hemoglobin (test code = hemoglobin) 9.4 g/dL 10.5-15.7 hematocrit (test code = hematocrit) 29.4 % 34.0-50.0 [facility] - [id number] 10:15:00 Test Item Value Reference Range Interpretation Comments hemoglobin (test code = hemoglobin) 9.4 g/dL 10.5-15.7 hematocrit (test code = hematocrit) 29.4 % 34.0-50.0 [facility] W Auto Differential panel - Sojgs9790-57-02 01:45:00 Test Item Value Reference Range Interpretation Comments white blood count (test code = 8.4 K/uL 4.0-11.5 white blood count) red blood count (test code = red 2.27 M/uL 3.80-5.20 L blood count) hemoglobin (test code = 7.0 g/dL 10.5-15.7 L hemoglobin) hematocrit (test code = 21.8 % 34.0-50.0 L hematocrit) MCV [Entitic volume] (test code = 96.0 fL 86-100 52172-4) mean corpuscular hemoglobin (test 30.8 pg 26.2-33.4 [...] 44.4-80.1 leukocytes in Blood (test code = 51103-2) Immature granulocytes [#/volume] 0.0 K/uL 0.0-0.03 H in Blood (test code = 24015-6) lymphocyte% (test code = 14.9 % 10.0-50.0 lymphocyte%) mono % (test code = mono %) 5.5 % 3.6-12.0 eos % (test code = eos %) 0.7 % 0.0-5.4 Basophils/100 leukocytes in 0.1 % 0.1-1.2 Unspecified specimen (test code = 39839-0) Band form neutrophils [#/volume] 6.55 K/uL 1.56-6.13 H in Blood (test code = 38864-9) Lymphocytes [#/volume] in 1.3 K/uL 1.18-3.74 Unspecified specimen by Automated count (test code = 58105-1) mono # (test code = mono #) 0.46 K/uL 0.24-0.86 eos # (test code = eos #) 0.06 K/uL 0.04-0.36 basophil # (test code = basophil 0.01 K/uL 0.01-0.08 #) NRBC% (test code = NRBC%) 3 /100 WBC 0-0.2 H NRBC# (test code = NRBC#) 0 K[facility], method unspecified - Uqtst3229-62-52 01:45:00NeutrophilsBandLymphocyteMonocyteEosinophilPlatelet EstimateMataOchs[facility] HealthBasi metabolic 2000 panel - Serum or Sekqdu0053-75-23 01:45:00 Test Item Value Reference Range Interpretation [...] = 7.9 mg/dL 8.8-10.2 L calcium level) [facility] W Auto Differential panel - [id number] 01:45:00 Test Item Value Reference Range Interpretation Comments white blood count (test code = 8.4 K/uL 4.0-11.5 white blood count) red blood count (test code = red 2.27 M/uL 3.80-5.20 L blood count) hemoglobin (test code = 7.0 g/dL 10.5-15.7 L hemoglobin) hematocrit (test code = 21.8 % 34.0-50.0 L hematocrit) MCV [Entitic volume] (test code = 96.0 fL 86-100 80285-8) mean corpuscular hemoglobin (test 30.8 pg 26.2-33.4 [...] 44.4-80.1 leukocytes in Blood (test code = 59645-5) Immature granulocytes [#/volume] 0.0 K/uL 0.0-0.03 H in Blood (test code = 39554-9) lymphocyte% (test code = 14.9 % 10.0-50.0 lymphocyte%) mono % (test code = mono %) 5.5 % 3.6-12.0 eos % (test code = eos %) 0.7 % 0.0-5.4 Basophils/100 leukocytes in 0.1 % 0.1-1.2 Unspecified specimen (test code = 78754-2) Band form neutrophils [#/volume] 6.55 K/uL 1.56-6.13 H in Blood (test code = 87846-4) Lymphocytes [#/volume] in 1.3 K/uL 1.18-3.74 Unspecified specimen by Automated count (test code = 92793-6) mono # (test code = mono #) 0.46 K/uL 0.24-0.86 eos # (test code = eos #) 0.06 K/uL 0.04-0.36 basophil # (test code = basophil 0.01 K/uL 0.01-0.08 #) NRBC% (test code = NRBC%) 3 /100 WBC 0-0.2 H NRBC# (test code = NRBC#) 0 K/uL [facility], method unspecified - [id number] 01:45:00NeutrophilsBandLymphocyteMonocyteEosinophilPlatelet EstimateMataOchsner [facility] HealthBasic metabolic 2000 panel - Serum or Uhrnfz8998-96-75 01:45:00 Test Item Value Reference Range Interpretation [...] = 7.9 mg/dL 8.8-10.2 L calcium level) [facility] W Auto Differential panel - [id number] 01:45:00 Test Item Value Reference Range Interpretation Comments white blood count (test code = 8.4 K/uL 4.0-11.5 white blood count) red blood count (test code = red 2.27 M/uL 3.80-5.20 L blood count) hemoglobin (test code = 7.0 g/dL 10.5-15.7 L hemoglobin) hematocrit (test code = 21.8 % 34.0-50.0 L hematocrit) MCV [Entitic volume] (test code = 96.0 fL 86-100 38285-5) mean corpuscular hemoglobin (test 30.8 pg 26.2-33.4 [...] 44.4-80.1 leukocytes in Blood (test code = 35585-9) Immature granulocytes [#/volume] 0.0 K/uL 0.0-0.03 H in Blood (test code = 40375-1) lymphocyte% (test code = 14.9 % 10.0-50.0 lymphocyte%) mono % (test code = mono %) 5.5 % 3.6-12.0 eos % (test code = eos %) 0.7 % 0.0-5.4 Basophils/100 leukocytes in 0.1 % 0.1-1.2 Unspecified specimen (test code = 11191-8) Band form neutrophils [#/volume] 6.55 K/uL 1.56-6.13 H in Blood (test code = 53625-5) Lymphocytes [#/volume] in 1.3 K/uL 1.18-3.74 Unspecified specimen by Automated count (test code = 18528-2) mono # (test code = mono #) 0.46 K/uL 0.24-0.86 eos # (test code = eos #) 0.06 K/uL 0.04-0.36 basophil # (test code = basophil 0.01 K/uL 0.01-0.08 #) NRBC% (test code = NRBC%) 3 /100 WBC 0-0.2 H NRBC# (test code = NRBC#) 0 K/uL [facility], method unspecified - [id number] 01:45:00NeutrophilsBandLymphocyteMonocyteEosinophilPlatelet EstimateMataOchs[facility] HealthBasic metabolic 2000 panel - Serum or Zsmcrv2127-40-12 01:45:00 Test Item Value Reference Range Interpretation [...] = 7.9 mg/dL 8.8-10.2 L calcium level) [facility] [id number] 13:40:00 Test Item Value Reference Range Interpretation Comments Blood type and Crossmatch unit number: panel - Blood (test code [id number] = 44866-6) [place] [id number] [facility]:40[facility]:40[facility] 92240020-[place] 13:40:00Results [place] [id number] [facility] 13:40:[place] [id number] 13:40:00Results [place] 92240020-05-08 [facility] 13:40:[place] [id number] 13:40:00Results [place] 92240020-05-08 [facility] 13:40:[place] [id number] 13:40:00Results [place] [id number] [facility] Iqlahmve3515-40-84 13:40:00Results [facility] Umirryly2213-57-23 13:40[facility]00[facility] 2020-01-15 13:40:00[facility] Uenfbtqo9509-34-82 13:40:00Results [facility] Uqsfjioo7473-93-08 13:40:00[facility] 2020-01-15 13:40:00[facility] Aklpojxj8985-57-97 13:40:00Results [facility] Nyqzmfug3433-85-57 13:40:00[facility] 2020-01-15 13:40:00[facility] Tcasixol5047-93-92 13:40:00Results [facility] Txzttwrc9281-57-49 13:40:00[facility] 2020-01-15 13:40:00[facility] Kqyvcygm6795-13-63 13:40:00Results [facility] GroupBlood type and Crossmatch panel - [id number] 13:40:00 Test Item Value Reference Range Interpretation Comments Blood type and Crossmatch unit number: panel - Blood (test code [id number] = 72684-6) [facility] Tluiawki4914-29-02 13:40:00[facility] 2020-01-15 13:40:00[facility] Odexjtue8994-48-33 13:40:00Results [facility] Eetxlfsa4764-47-37 13:40:00[facility] 2020-01-15 13:40:00[facility] Eonwlynn1321-18-42 13:40:00Results [facility] Bdfwkizm2831-98-34 13:40:00[facility] 2020-01-15 13:40:00[facility] Cfmgighw3915-71-97 13:40:00Results [facility] Pqfxwrnr5998-84-56 13:40:00[facility] 2020-01-15 13:40:00[facility] Cbeufxxk6526-98-48 13:40:00Results [facility] Foaxhwnf8106-51-92 13:40:00[facility] 2020-01-15 13:40:00[facility] Chsjffka2485-84-32 13:40:00Results [facility] Yjmvjknq9158-48-72 13:40:00[facility] 2020-01-15 13:40:00[facility] Umaqwgcl2327-10-46 13:40:00Results [facility] Clvofwof2380-14-40 13:40:00[facility] 2020-01-15 13:40:00[facility] Lyourael7581-41-39 13:40:00Results [facility] Xcyebmof0873-42-83 13:40:00[facility] 2020-01-15 13:40:00[facility] Sdudnyin1801-22-03 13:40:00Results [facility] Nwsawalh6644-84-71 13:40:00[facility] 2020-01-15 13:40:00[facility] Mttnyels4337-85-56 13:40:00Results [facility] GroupBlood type and Crossmatch panel - [id number] 13:40:00 Test Item Value Reference Range Interpretation Comments Blood type and Crossmatch unit number: panel - Blood (test code [id number] = 36912-5) [facility] Dusuarlf7318-63-08 13:40:00[facility] Group[facility] 2020-[facility]-15 13:40:00[facility] Mmcutvru1466-58-82 13:40:00Results [facility] Aaiwjwlz1443-39-90 13:40:00[facility] 2020-01-15 13:40:00[facility] Pjajvnzf8642-62-82 13:40:00Results [facility] Knowuubi5760-26-75 13:40:00[facility] 2020-01-15 13:40:00[facility] Wasxoafc3492-18-86 13:40:00Results [facility] Tznoypta6566-13-65 13:40:00[facility] 2020-01-15 13:40:00[facility] Eauvnihm4516-87-82 13:40:00Results [facility] Vphtznzu2941-54-91 13:40:00[facility] 2020-01-15 13:40:00[facility] Ozfgnpvi8732-35-08 13:40:00Results [facility] Qlrkmstf7077-36-97 13:40:00[facility] 2020-01-15 13:40:00[facility] Kjxoshyf9756-26-24 13:40:00Results [facility] Tzavxywz6854-10-28 13:40:00[facility] 2020-01-15 13:40:00[facility] Oipcpucp7737-63-01 13:40:00Results [facility] Rnaejvxr5434-54-58 13:40:00[facility] 2020-01-15 13:40:00[facility] Dtzjyfnj9750-93-00 13:40:00Results [facility] Hxsqsyvb4702-98-87 13:40:00[facility] 13:40:00Results[facility]upc2020-05-08 13:40:00Results [facility] CentralHem[facility] Hematocrit [facility] - Bjzyk0529-13-68 09:48:00 Test Item Value Reference Range Interpretation Comments hemoglobin (test code = hemoglobin) 7.6 g/dL 10.5-15.7 hematocrit (test code = hematocrit) 23.5 % 34.0-50.0 [facility]ematoc[facility] - Ptuyb4577-32-46 09:48:00 Test Item Value Reference Range Interpretation Comments hemoglobin (test code = hemoglobin) 7.6 g/dL 10.5-15.7 hematocrit (test code = hematocrit) 23.5 % 34.0-50.0 [facility]ematoc[facility] - Wqcrn7186-35-96 09:48:00 Test Item Value Reference Range Interpretation Comments hemoglobin (test code = hemoglobin) 7.6 g/dL 10.5-15.7 hematocrit (test code = hematocrit) 23.5 % 34.0-50.0 [facility]PT/NRR3828-91-86 08:07:00 Test Item Value Reference Range Interpretation Comments prothrombin time (test code = 10.4 seconds 10.3-12.3 prothrombin time) INR in Blood by Coagulation 0.96 assay (test code = 80819-3) [facility] qqqt3257-34-12 08:07:00 Test Item Value Reference Range Interpretation Comments INR in Blood by Coagulation 22.0 seconds 22.5-37.0 L assay (test code = 92517-2) [facility] CentralBlood type and Indirect antibody screen panel - Blood 2020-01-15 08:07:00 Test Item Value Reference Range Interpretation Comments Rh [Type] in Blood (test code = neg 84576-8) ABO and Rh group panel - Blood O negative (test code = 59252-1) [facility]PT/WDF1024-82-61 08:07:00 Test Item Value Reference Range Interpretation Comments prothrombin time (test code = 10.4 seconds 10.3-12.3 prothrombin time) INR in Blood by Coagulation 0.96 assay (test code = 85897-9) [facility]in cxqe0789-60-88 08:07:00 Test Item Value Reference Range Interpretation Comments INR in Blood by Coagulation 22.0 seconds 22.5-37.0 L assay (test code = 45225-9) [facility]Blood [facility] and Indirect antibody screen panel - Blood 2020-01-15 08:07:00 Test Item Value Reference Range Interpretation Comments Rh [Type] in Blood (test code = neg 75918-7) ABO and Rh group panel - Blood O negative (test code = 61140-5) [facility]PT/QNK9797-65-54 08:07:00 Test Item Value Reference Range Interpretation Comments prothrombin time (test code = 10.4 seconds 10.3-12.3 prothrombin time) INR in Blood by Coagulation 0.96 assay (test code = 73145-5) [facility]in wwcs7966-07-28 08:07:00 Test Item Value Reference Range Interpretation Comments INR in Blood by Coagulation 22.0 seconds 22.5-37.0 L assay (test code = 32445-2) [facility]Blood type and Indirect antibody screen panel - Blood 2020-01-15 08:07:00 Test Item Value Reference Range Interpretation Comments Rh [Type] in Blood (test code = neg 79934-3) ABO and Rh group panel - Blood O negative (test code = 20647-7) [facility] CentralComprehensive metabolic 2000 panel - Serum or Plasma [...] Serum or Plasma (test code = 6768-6) [facility] [Enzymatic activity/volume] in Serum or Qikpbd0050-09-97 07:32:00 Test Item Value Reference Range Interpretation Comments creatine kinase (test code = creatine 901 U/L 20-180 H kinase) [facility] CentralNatriuretic peptide.B prohormone N-Terminal [Mass/volume] in Serum or Pjtgpc1380-98-98 07:32:00 Test Item Value Reference Range Interpretation Comments N-term pro natriuretic peptide (test 91 pg/mL 0-125 code = N-term pro natriuretic peptide) [facility] CentralTroponin I.cardiac [Mass/volume] in Nnrhb3143-59-96 07:32:00 Test Item Value Reference Range Interpretation Comments cardiac troponin I (test code = cardiac <0.30 0.0-0.5 troponin I) [facility] CentralCreatine kinase.MB [Mass/volume] in Serum or Plasma 2020-01-15 07:32:00 Test Item Value Reference Range Interpretation Comments Creatine kinase.MB [Mass/volume] 25.1 NG/mL 0.0-3.6 H in Serum or Plasma by Immunoassay (test code = 26162-5) [facility]Com[facility] metabolic 2000 panel - Serum or Plasma [...] Plasma (test code = 6768-6) [facility] CentralCreatine kinase [Enzymatic activity/volume] in Serum or Vssfxf8295-31-46 07:32:00 Test Item Value Reference Range Interpretation Comments creatine kinase (test code = creatine 901 U/L 20-180 H kinase) [facility] CentralNatriuretic peptide.B prohormone N-Terminal [Mass/volume] in Serum or Wluafx4873-28-15 07:32:00 Test Item Value Reference Range Interpretation Comments N-term pro natriuretic peptide (test 91 pg/mL 0-125 code = N-term pro natriuretic peptide) [facility] CentralTroponin I.cardiac [Mass/volume] in Uwlom8277-90-04 07:32:00 Test Item Value Reference Range Interpretation Comments cardiac troponin I (test code = cardiac <0.30 0.0-0.5 troponin I) [facility] CentralCreatine kinase.MB [Mass/volume] in Serum or Plasma 2020-01-15 07:32:00 Test Item Value Reference Range Interpretation Comments Creatine kinase.MB [Mass/volume] 25.1 NG/mL 0.0-3.6 H in Serum or Plasma by Immunoassay (test code = 53969-9) [facility] W Auto Differential panel - Pazms4807-96-10 07:32:00 Test Item Value Reference Range Interpretation Comments white blood count (test code = 8.5 K/uL 4.0-11.5 white blood count) red blood count (test code = red 1.60 M/uL 3.80-5.20 L blood count) hemoglobin (test code = 5.1 g/dL 10.5-15.7 hemoglobin) hematocrit (test code = 16.9 % 34.0-50.0 hematocrit) MCV [Entitic volume] (test code = 105.6 fL 86-100 H 80350-9) mean corpuscular hemoglobin (test 31.9 pg 26.2-33.4 [...] H leukocytes in Blood (test code = 37050-2) Immature granulocytes [#/volume] 0.0 K/uL 0.0-0.03 H in Blood (test code = 19124-3) lymphocyte% (test code = 11.4 % 10.0-50.0 lymphocyte%) mono % (test code = mono %) 5.4 % 3.6-12.0 eos % (test code = eos %) 0.5 % 0.0-5.4 Basophils/100 leukocytes in 0.1 % 0.1-1.2 Unspecified specimen (test code = 11962-3) Band form neutrophils [#/volume] 6.97 K/uL 1.56-6.13 H in Blood (test code = 36009-7) Lymphocytes [#/volume] in 1.0 K/uL 1.18-3.74 L Unspecified specimen by Automated count (test code = 44629-4) mono # (test code = mono #) 0.46 K/uL 0.24-0.86 eos # (test code = eos #) 0.04 K/uL 0.04-0.36 basophil # (test code = basophil 0.01 K/uL 0.01-0.08 #) NRBC% (test code = NRBC%) 2 /100 WBC 0-0.2 H NRBC# (test code = NRBC#) 0 K/uL [facility] CentralDifferent[facility] panel, method unspecified - [id number] 07:32:00NeutrophilsBandLymphocyteMonocyteEosinophilBasophilPlatelet EstimateDifferential comment-[facility]Comprehensive [facility] 2000 panel - Serum or [id number] 07:32:00 Test Item Value Reference Range Interpretation [...] Serum or Plasma (test code = 6768-6) [facility] GroupCreatine kinase [Enzymatic activity/volume] in Serum or [id number] 07:32:00 Test Item Value Reference Range Interpretation Comments creatine kinase (test code = creatine 901 U/L 20-180 H kinase) [facility] GroupNatriuretic peptide.B prohormone N-Terminal [Mass/volume] in Serum or [id number] 07:32:00 Test Item Value Reference Range Interpretation Comments N-term pro natriuretic peptide (test 91 pg/mL 0-125 code = N-term pro natriuretic peptide) [facility] GroupTroponin I.cardiac [Mass/volume] in [id number] 07:32:00 Test Item Value Reference Range Interpretation Comments cardiac troponin I (test code = cardiac <0.30 0.0-0.5 troponin I) [facility]Creat[facility] kinase.MB [Mass/volume] in Serum or Plasma 2020-01-15 07:32:00 Test Item Value Reference Range Interpretation Comments Creatine kinase.MB [Mass/volume] 25.1 NG/mL 0.0-3.6 H in Serum or Plasma by Immunoassay (test code = 95710-2) [facility] - [id number] 04:45:00 Test Item Value Reference Range Interpretation Comments Color of Urine by Auto (test colorless code = 81972-7) Appearance of Urine (test code clear clear = 5767-9) Glucose [Presence] in Urine by negative negative Automated test strip (test code = 41412-5) Bilirubin.total [Mass/volume] negative negative in Urine (test code = 1978-6) Ketones [Mass/volume] in Urine negative negative by Automated test strip (test code = 13907-0) Specific gravity of Urine by 1.008 1.003-1.030 Automated test strip (test code = 76560-0) blood urine (test code = blood negative negative urine) pH of Urine (test code = 5.500 5-9 2756-5) protein urine (UA) (test code = negative negative protein urine (UA)) Urobilinogen [Presence] in normal 0.2-1.0 Urine (test code = 56921-2) Nitrite [Presence] in Urine by negative negative Test strip (test code = 5802-4) Leukocyte esterase [Presence] negative negative in Urine by Automated test strip (test code = 32653-2) Erythrocytes [#/volume] in <1 0-5 Urine by Automated count (test code = 798-9) Leukocytes [#/area] in Urine <1 0-5 sediment by Automated count (test code = 02556-3) Epithelial cells [Presence] in <1 0-5 Urine sediment by Light microscopy (test code = 27776-5) Bacteria identified in Urine by none detected none detect Culture (test code = 630-4) Casts [#/area] in Urine =2-5 none detect sediment by Automated count (test code = 39799-7) urine culture added? (test code no = urine culture added?) [facility] - [id number] 04:45:00 Test Item Value Reference Range Interpretation Comments Color of Urine by Auto (test colorless code = 68093-0) Appearance of Urine (test code clear clear = 5767-9) Glucose [Presence] in Urine by negative negative Automated test strip (test code = 00850-3) Bilirubin.total [Mass/volume] negative negative in Urine (test code = 1978-6) Ketones [Mass/volume] in Urine negative negative by Automated test strip (test code = 21688-4) Specific gravity of Urine by 1.008 1.003-1.030 Automated test strip (test code = 48331-6) blood urine (test code = blood negative negative urine) pH of Urine (test code = 5.500 5-9 2756-5) protein urine (UA) (test code = negative negative protein urine (UA)) Urobilinogen [Presence] in normal 0.2-1.0 Urine (test code = 77708-5) Nitrite [Presence] in Urine by negative negative Test strip (test code = 5802-4) Leukocyte esterase [Presence] negative negative in Urine by Automated test strip (test code = 25632-1) Erythrocytes [#/volume] in <1 0-5 Urine by Automated count (test code = 798-9) Leukocytes [#/area] in Urine <1 0-5 sediment by Automated count (test code = 24365-4) Epithelial cells [Presence] in <1 0-5 Urine sediment by Light microscopy (test code = 63929-7) Bacteria identified in Urine by none detected none detect Culture (test code = 630-4) Casts [#/area] in Urine =2-5 none detect sediment by Automated count (test code = 33075-6) urine culture added? (test code no = urine culture added?) [facility] - [id number] 04:45:00 Test Item Value Reference Range Interpretation Comments Color of Urine by Auto (test colorless code = 43915-1) Appearance of Urine (test code clear clear = 5767-9) Glucose [Presence] in Urine by negative negative Automated test strip (test code = 12329-4) Bilirubin.total [Mass/volume] negative negative in Urine (test code = 1978-6) Ketones [Mass/volume] in Urine negative negative by Automated test strip (test code = 48867-3) Specific gravity of Urine by 1.008 1.003-1.030 Automated test strip (test code = 78861-2) blood urine (test code = blood negative negative urine) pH of Urine (test code = 5.500 5-9 2756-5) protein urine (UA) (test code = negative negative protein urine (UA)) Urobilinogen [Presence] in normal 0.2-1.0 Urine (test code = 89500-6) Nitrite [Presence] in Urine by negative negative Test strip (test code = 5802-4) Leukocyte esterase [Presence] negative negative in Urine by Automated test strip (test code = 76474-4) Erythrocytes [#/volume] in <1 0-5 Urine by Automated count (test code = 798-9) Leukocytes [#/area] in Urine <1 0-5 sediment by Automated count (test code = 72954-7) Epithelial cells [Presence] in <1 0-5 Urine sediment by Light microscopy (test code = 28608-0) Bacteria identified in Urine by none detected none detect Culture (test code = 630-4) Casts [#/area] in Urine =2-5 none detect sediment by Automated count (test code = 64591-4) urine culture added? (test code no = urine culture added?) [facility] W Auto Differential panel - [id number] 09:37:00 Test Item Value Reference Range Interpretation Comments white blood count (test code = 6.7 K/uL 4.0-11.5 white blood count) red blood count (test code = red 2.27 M/uL 3.80-5.20 L blood count) hemoglobin (test code = 7.2 g/dL 10.5-15.7 hemoglobin) hematocrit (test code = 23.1 % 34.0-50.0 hematocrit) MCV [Entitic volume] (test code = 101.8 fL 86-100 H 82843-0) mean corpuscular hemoglobin (test 31.7 pg 26.2-33.4 [...] 44.4-80.1 leukocytes in Blood (test code = 49990-9) Immature granulocytes [#/volume] 0.0 K/uL 0.0-0.03 in Blood (test code = 85256-4) lymphocyte% (test code = 19.0 % 10.0-50.0 lymphocyte%) mono % (test code = mono %) 5.2 % 3.6-12.0 eos % (test code = eos %) 0.4 % 0.0-5.4 Basophils/100 leukocytes in 0.3 % 0.1-1.2 Unspecified specimen (test code = 15743-3) Band form neutrophils [#/volume] 4.98 K/uL 1.56-6.13 in Blood (test code = 27098-8) Lymphocytes [#/volume] in 1.3 K/uL 1.18-3.74 Unspecified specimen by Automated count (test code = 99962-6) mono # (test code = mono #) 0.35 K/uL 0.24-0.86 eos # (test code = eos #) 0.03 K/uL 0.04-0.36 L basophil # (test code = basophil 0.02 K/uL 0.01-0.08 #) NRBC% (test code = NRBC%) 1 /100 WBC 0-0.2 H NRBC# (test code = NRBC#) 0 K/uL [facility] W Auto Differential panel - [id number] 09:37:00 Test Item Value Reference Range Interpretation Comments white blood count (test code = 6.7 K/uL 4.0-11.5 white blood count) red blood count (test code = red 2.27 M/uL 3.80-5.20 L blood count) hemoglobin (test code = 7.2 g/dL 10.5-15.7 hemoglobin) hematocrit (test code = 23.1 % 34.0-50.0 hematocrit) MCV [Entitic volume] (test code = 101.8 fL 86-100 H 16954-7) mean corpuscular hemoglobin (test 31.7 pg 26.2-33.4 [...] 44.4-80.1 leukocytes in Blood (test code = 59375-6) Immature granulocytes [#/volume] 0.0 K/uL 0.0-0.03 in Blood (test code = 04281-2) lymphocyte% (test code = 19.0 % 10.0-50.0 lymphocyte%) mono % (test code = mono %) 5.2 % 3.6-12.0 eos % (test code = eos %) 0.4 % 0.0-5.4 Basophils/100 leukocytes in 0.3 % 0.1-1.2 Unspecified specimen (test code = 58027-5) Band form neutrophils [#/volume] 4.98 K/uL 1.56-6.13 in Blood (test code = 62867-4) Lymphocytes [#/volume] in 1.3 K/uL 1.18-3.74 Unspecified specimen by Automated count (test code = 79140-2) mono # (test code = mono #) 0.35 K/uL 0.24-0.86 eos # (test code = eos #) 0.03 K/uL 0.04-0.36 L basophil # (test code = basophil 0.02 K/uL 0.01-0.08 #) NRBC% (test code = NRBC%) 1 /100 WBC 0-0.2 H NRBC# (test code = NRBC#) 0 K/uL [facility] W Auto Differential panel - [id number] 09:37:00 Test Item Value Reference Range Interpretation Comments white blood count (test code = 6.7 K/uL 4.0-11.5 white blood count) red blood count (test code = red 2.27 M/uL 3.80-5.20 L blood count) hemoglobin (test code = 7.2 g/dL 10.5-15.7 hemoglobin) hematocrit (test code = 23.1 % 34.0-50.0 hematocrit) MCV [Entitic volume] (test code = 101.8 fL 86-100 H 80969-3) mean corpuscular hemoglobin (test 31.7 pg 26.2-33.4 [...] 44.4-80.1 leukocytes in Blood (test code = 32087-5) Immature granulocytes [#/volume] 0.0 K/uL 0.0-0.03 in Blood (test code = 28185-3) lymphocyte% (test code = 19.0 % 10.0-50.0 lymphocyte%) mono % (test code = mono %) 5.2 % 3.6-12.0 eos % (test code = eos %) 0.4 % 0.0-5.4 Basophils/100 leukocytes in 0.3 % 0.1-1.2 Unspecified specimen (test code = 78991-3) Band form neutrophils [#/volume] 4.98 K/uL 1.56-6.13 in Blood (test code = 12812-2) Lymphocytes [#/volume] in 1.3 K/uL 1.18-3.74 Unspecified specimen by Automated count (test code = 22050-1) mono # (test code = mono #) 0.35 K/uL 0.24-0.86 eos # (test code = eos #) 0.03 K/uL 0.04-0.36 L basophil # (test code = basophil 0.02 K/uL 0.01-0.08 #) NRBC% (test code = NRBC%) 1 /100 WBC 0-0.2 H NRBC# (test code = NRBC#) 0 K/uL [facility] [Enzymatic activity/volume] in Serum or [id number] 05:20:00 Test Item Value Reference Range Interpretation Comments creatine kinase (test code = creatine 189 U/L 20-180 H kinase) [facility]Troponin I.cardiac [Mass/volume] in [id number] 05:20:00 Test Item Value Reference Range Interpretation Comments cardiac troponin I (test code = cardiac <0.30 0.0-0.5 troponin I) [facility] kinase.MB [Mass/volume] in Serum or Plasma 2019-06-26 05:20:00 Test Item Value Reference Range Interpretation Comments mass creatinine kinase-mb (test 2.6 NG/mL 0.0-3.6 code = mass creatinine kinase-mb) [facility] W Auto Differential panel - [id number] 02:50:00 Test Item Value Reference Range Interpretation Comments white blood count (test code = 4.8 K/uL 4.0-11.5 white blood count) red blood count (test code = red 3.44 M/uL 3.80-5.20 L blood count) hemoglobin (test code = 11.0 g/dL 10.5-15.7 hemoglobin) hematocrit (test code = 34.4 % 34.0-50.0 hematocrit) Erythrocyte mean corpuscular 100.0 fL 86-100 volume [Entitic volume] (test code = 13178-3) mean corpuscular hemoglobin (test 32.0 pg 26.2-33.4 [...] 44.4-80.1 leukocytes in Blood (test code = 50865-0) Granulocytes Immature [#/volume] 0.0 K/uL 0.0-0.03 in Blood (test code = 90785-3) lymphocyte% (test code = 19.7 % 10.0-50.0 lymphocyte%) mono % (test code = mono %) 9.5 % 3.6-12.0 eos % (test code = eos %) 1.7 % 0.0-5.4 Basophils/100 leukocytes in 0.2 % 0.1-1.2 Unspecified specimen (test code = 30507-4) Neutrophils.band form [#/volume] 3.32 K/uL 1.56-6.13 in Blood (test code = 40105-7) Lymphocytes [#/volume] in 1.0 K/uL 1.18-3.74 L Unspecified specimen by Automated count (test code = 28769-3) mono # (test code = mono #) 0.46 K/uL 0.24-0.86 eos # (test code = eos #) 0.08 K/uL 0.04-0.36 basophil # (test code = basophil 0.01 K/uL 0.01-0.08 #) NRBC% (test code = NRBC%) 0 /100 WBC 0-0.2 NRBC# (test code = NRBC#) 0 K/uL [facility], [id number] 02:50:00 NeutrophilsBandLymphocyteAtypical LymphMonocyteEosinophilBasophilMetamyelocytePlatelet EstimatePlatelet MorphologyHypochromasiaAnisocytosisMacrocytosisToxic GranulationToxic VacuolationMatagoSimpson General HospitalPT/[id number] 02:50:00 Test Item Value Reference Range Interpretation Comments prothrombin time (test code = 9.5 seconds 10.3-12.3 L prothrombin time) INR in Blood by Coagulation assay 0.90 (test code = 80036-5) [facility] [id number] 02:50:00 Test Item Value Reference Range Interpretation Comments INR in Blood by Coagulation 24.8 seconds 22.5-37.0 assay (test code = 53695-4) [facility]Com[facility] 2000 panel - Serum or Plasma [...] Plasma (test code = 6768-6) [facility]Creatine kinase [Enzymatic activity/volume] in Serum or [id number] 02:50:00 Test Item Value Reference Range Interpretation Comments creatine kinase (test code = creatine 187 U/L 20-180 H kinase) [facility] CentralNatriuretic peptide.B prohormone N-Terminal [Mass/volume] in Serum or [id number] 02:50:00 Test Item Value Reference Range Interpretation Comments N-term pro natriuretic peptide 171 pg/mL 0-125 H (test code = N-term pro natriuretic peptide) [facility]Trop[facility] I.cardiac [Mass/volume] in [id number] 02:50:00 Test Item Value Reference Range Interpretation Comments cardiac troponin I (test code = cardiac <0.30 0.0-0.5 troponin I) [facility]Creat[facility] kinase.MB [Mass/volume] in Serum or Plasma 2019-06-26 02:50:00 Test Item Value Reference Range Interpretation Comments mass creatinine kinase-mb (test 2.6 NG/mL 0.0-3.6 code = mass creatinine kinase-mb) [facility] W Auto Differential panel - [id number] 02:50:00 Test Item Value Reference Range Interpretation Comments white blood count (test code = 4.8 K/uL 4.0-11.5 white blood count) red blood count (test code = red 3.44 M/uL 3.80-5.20 L blood count) hemoglobin (test code = 11.0 g/dL 10.5-15.7 hemoglobin) hematocrit (test code = 34.4 % 34.0-50.0 hematocrit) Erythrocyte mean corpuscular 100.0 fL 86-100 volume [Entitic volume] (test code = 60156-6) mean corpuscular hemoglobin (test 32.0 pg 26.2-33.4 [...] 44.4-80.1 leukocytes in Blood (test code = 20568-8) Granulocytes Immature [#/volume] 0.0 K/uL 0.0-0.03 in Blood (test code = 02435-5) lymphocyte% (test code = 19.7 % 10.0-50.0 lymphocyte%) mono % (test code = mono %) 9.5 % 3.6-12.0 eos % (test code = eos %) 1.7 % 0.0-5.4 Basophils/100 leukocytes in 0.2 % 0.1-1.2 Unspecified specimen (test code = 61554-1) Neutrophils.band form [#/volume] 3.32 K/uL 1.56-6.13 in Blood (test code = 13930-1) Lymphocytes [#/volume] in 1.0 K/uL 1.18-3.74 L Unspecified specimen by Automated count (test code = 37452-9) mono # (test code = mono #) 0.46 K/uL 0.24-0.86 eos # (test code = eos #) 0.08 K/uL 0.04-0.36 basophil # (test code = basophil 0.01 K/uL 0.01-0.08 #) NRBC% (test code = NRBC%) 0 /100 WBC 0-0.2 NRBC# (test code = NRBC#) 0 K/uL [facility], [id number] 02:50:00 NeutrophilsBandLymphocyteAtypical LymphMonocyteEosinophilBasophilMetamyelocytePlatelet EstimatePlatelet MorphologyHypochromasiaAnisocytosisMacrocytosisToxic GranulationToxic VacuolationMatagoSimpson General HospitalPT/[id number] 02:50:00 Test Item Value Reference Range Interpretation Comments prothrombin time (test code = 9.5 seconds 10.3-12.3 L prothrombin time) INR in Blood by Coagulation assay 0.90 (test code = 94468-4) [facility] [id number] 02:50:00 Test Item Value Reference Range Interpretation Comments INR in Blood by Coagulation 24.8 seconds 22.5-37.0 assay (test code = 26072-3) [facility]Com[facility] 2000 panel - Serum or Plasma [...] Plasma (test code = 6768-6) [facility]Creatine kinase [Enzymatic activity/volume] in Serum or [id number] 02:50:00 Test Item Value Reference Range Interpretation Comments creatine kinase (test code = creatine 187 U/L 20-180 H kinase) [facility] CentralNatriuretic peptide.B prohormone N-Terminal [Mass/volume] in Serum or [id number] 02:50:00 Test Item Value Reference Range Interpretation Comments N-term pro natriuretic peptide 171 pg/mL 0-125 H (test code = N-term pro natriuretic peptide) [facility] CentralTroponin I.cardiac [Mass/volume] in [id number] 02:50:00 Test Item Value Reference Range Interpretation Comments cardiac troponin I (test code = cardiac <0.30 0.0-0.5 troponin I) [facility]Creatine kinase.MB [Mass/volume] in Serum or Plasma 2019-06-26 02:50:00 Test Item Value Reference Range Interpretation Comments mass creatinine kinase-mb (test 2.6 NG/mL 0.0-3.6 code = mass creatinine kinase-mb) [facility] W Auto Differential panel - [id number] 12:30:00 Test Item Value Reference Range Interpretation Comments white blood count (test code = 5.8 K/uL 4.0-11.5 white blood count) red blood count (test code = red 3.64 M/uL 3.80-5.20 L blood count) hemoglobin (test code = 11.6 g/dL 10.5-15.7 hemoglobin) hematocrit (test code = 36.9 % 34.0-50.0 hematocrit) Erythrocyte mean corpuscular 101.4 fL 86-100 H volume [Entitic volume] (test code = 12195-4) mean corpuscular hemoglobin (test 31.9 pg 26.2-33.4 [...] 44.4-80.1 leukocytes in Blood (test code = 33437-6) Granulocytes Immature [#/volume] 0.0 K/uL 0.0-0.03 in Blood (test code = 14598-1) lymphocyte% (test code = 20.2 % 10.0-50.0 lymphocyte%) mono % (test code = mono %) 9.8 % 3.6-12.0 eos % (test code = eos %) 0.9 % 0.0-5.4 Basophils/100 leukocytes in 0.2 % 0.1-1.2 Unspecified specimen (test code = 83975-8) Neutrophils.band form [#/volume] 4.00 K/uL 1.56-6.13 in Blood (test code = 86686-8) Lymphocytes [#/volume] in 1.2 K/uL 1.18-3.74 Unspecified specimen by Automated count (test code = 00004-8) mono # (test code = mono #) 0.57 K/uL 0.24-0.86 eos # (test code = eos #) 0.05 K/uL 0.04-0.36 basophil # (test code = basophil 0.01 K/uL 0.01-0.08 #) NRBC% (test code = NRBC%) 0 /100 WBC 0-0.2 NRBC# (test code = NRBC#) 0 K/uL [facility], [id number] 12:30:00 NeutrophilsBandLymphocyteAtypical LymphMonocyteEosinophilBasophilPlatelet EstimatePlatelet MorphologyMacrocytosisMerit Health CentralBasic metabolic 2000 panel - Serum or [id number] 12:30:00 Test Item Value Reference Range Interpretation [...] = calcium 8.5 mg/dL 8.8-10.[address]) [facility] W Auto Differential panel - [id number] 12:30:00 Test Item Value Reference Range Interpretation Comments white blood count (test code = 5.8 K/uL 4.0-11.5 white blood count) red blood count (test code = red 3.64 M/uL 3.80-5.20 L blood count) hemoglobin (test code = 11.6 g/dL 10.5-15.7 hemoglobin) hematocrit (test code = 36.9 % 34.0-50.0 hematocrit) Erythrocyte mean corpuscular 101.4 fL 86-100 H volume [Entitic volume] (test code = 59511-6) mean corpuscular hemoglobin (test 31.9 pg 26.2-33.4 [...] 44.4-80.1 leukocytes in Blood (test code = 57969-9) Granulocytes Immature [#/volume] 0.0 K/uL 0.0-0.03 in Blood (test code = 54959-7) lymphocyte% (test code = 20.2 % 10.0-50.0 lymphocyte%) mono % (test code = mono %) 9.8 % 3.6-12.0 eos % (test code = eos %) 0.9 % 0.0-5.4 Basophils/100 leukocytes in 0.2 % 0.1-1.2 Unspecified specimen (test code = 87180-7) Neutrophils.band form [#/volume] 4.00 K/uL 1.56-6.13 in Blood (test code = 22068-1) Lymphocytes [#/volume] in 1.2 K/uL 1.18-3.74 Unspecified specimen by Automated count (test code = 72527-0) mono # (test code = mono #) 0.57 K/uL 0.24-0.86 eos # (test code = eos #) 0.05 K/uL 0.04-0.36 basophil # (test code = basophil 0.01 K/uL 0.01-0.08 #) NRBC% (test code = NRBC%) 0 /100 WBC 0-0.2 NRBC# (test code = NRBC#) 0 K/uL [facility], [id number] 12:30:00 NeutrophilsBandLymphocyteAtypical LymphMonocyteEosinophilBasophilPlatelet EstimatePlatelet MorphologyMacrocytosisMerit Health CentralBasic metabolic 2000 panel - Serum or [id number] 12:30:00 Test Item Value Reference Range Interpretation [...] 8.5 mg/dL 8.8-10.2 L level) [facility] complete [facility] - [id number] 11:54:00 Test Item Value Reference Range Interpretation Comments Color of Urine by Auto light yellow (test code = 08215-8) Appearance of Urine (test clear clear code = 5767-9) Glucose [Presence] in negative negative Urine by Automated test strip (test code = 70204-2) Bilirubin.total negative negative [Mass/volume] in Urine (test code = 1978-6) Ketones [Mass/volume] in negative negative Urine by Automated test strip (test code = 59982-5) Specific gravity of Urine 1.025 1.003-1.030 by Automated test strip (test code = 85966-6) blood urine (test code = negative negative blood urine) pH of Urine (test code = 6.500 5-9 2756-5) protein urine (UA) (test negative negative code = protein urine (UA)) Urobilinogen [Presence] normal 0.2-1.0 in Urine (test code = 27195-5) Nitrite [Presence] in negative negative Urine by Test strip (test code = 5802-4) Leukocyte esterase negative negative [Presence] in Urine by Automated test strip (test code = 08855-3) Erythrocytes [#/volume] <1 0-5 in Urine by Automated count (test code = 798-9) Leukocytes [#/area] in <1 0-5 Urine sediment by Automated count (test code = 72960-0) Epithelial cells <1 0-5 [Presence] in Urine sediment by Light microscopy (test code = 13851-4) Bacteria identified in none detected none detect Urine by Culture (test code = 630-4) Casts [#/area] in Urine =11-14 none detect H sediment by Automated count (test code = 82098-8) urine culture added? no (test code = urine culture added?) path casts,U (test code = cellular casts (1-5 none detect A path casts,U) [facility] - [id number] 11:54:00 Test Item Value Reference Range Interpretation Comments Color of Urine by Auto light yellow (test code = 22745-5) Appearance of Urine (test clear clear code = 5767-9) Glucose [Presence] in negative negative Urine by Automated test strip (test code = 05794-8) Bilirubin.total negative negative [Mass/volume] in Urine (test code = 1978-6) Ketones [Mass/volume] in negative negative Urine by Automated test strip (test code = 59742-3) Specific gravity of Urine 1.025 1.003-1.030 by Automated test strip (test code = 02282-5) blood urine (test code = negative negative blood urine) pH of Urine (test code = 6.500 5-9 2756-5) protein urine (UA) (test negative negative code = protein urine (UA)) Urobilinogen [Presence] normal 0.2-1.0 in Urine (test code = 35400-9) Nitrite [Presence] in negative negative Urine by Test strip (test code = 5802-4) Leukocyte esterase negative negative [Presence] in Urine by Automated test strip (test code = 06890-0) Erythrocytes [#/volume] <1 0-5 in Urine by Automated count (test code = 798-9) Leukocytes [#/area] in <1 0-5 Urine sediment by Automated count (test code = 14916-7) Epithelial cells <1 0-5 [Presence] in Urine sediment by Light microscopy (test code = 78191-2) Bacteria identified in none detected none detect Urine by Culture (test code = 630-4) Casts [#/area] in Urine =11-14 none detect H sediment by Automated count (test code = 63802-5) urine culture added? no (test code = urine culture added?) path casts,U (test code = cellular casts (1-5 none detect A path casts,U) [facility] W Auto Differential panel - [id number] 09:30:00 Test Item Value Reference Range Interpretation Comments white blood count (test code = 5.6 K/uL 4.0-11.5 white blood count) red blood count (test code = red 3.98 M/uL 3.80-5.20 blood count) hemoglobin (test code = 12.7 g/dL 10.5-15.7 hemoglobin) hematocrit (test code = 39.8 % 34.0-50.0 hematocrit) Erythrocyte mean corpuscular 100.0 fL 86-100 volume [Entitic volume] (test code = 62856-5) mean corpuscular hemoglobin (test 31.9 pg 26.2-33.4 [...] 44.4-80.1 leukocytes in Blood (test code = 93652-7) Granulocytes Immature [#/volume] 0.0 K/uL 0.0-0.03 in Blood (test code = 05646-2) lymphocyte% (test code = 15.1 % 10.0-50.0 lymphocyte%) mono % (test code = mono %) 6.8 % 3.6-12.0 eos % (test code = eos %) 0.7 % 0.0-5.4 Basophils/100 leukocytes in 0.4 % 0.1-1.2 Unspecified specimen (test code = 56607-2) Neutrophils.band form [#/volume] 4.29 K/uL 1.56-6.13 in Blood (test code = 53516-1) Lymphocytes [#/volume] in 0.8 K/uL 1.18-3.74 L Unspecified specimen by Automated count (test code = 85733-0) mono # (test code = mono #) 0.38 K/uL 0.24-0.86 eos # (test code = eos #) 0.04 K/uL 0.04-0.36 basophil # (test code = basophil 0.02 K/uL 0.01-0.08 #) NRBC% (test code = NRBC%) 0 /100 WBC 0-0.2 NRBC# (test code = NRBC#) 0 K/uL [facility], [id number] 09:30:00 NeutrophilsBandLymphocyteAtypical LymphMonocyteEosinophilPlatelet EstimatePlatelet MorphologyMacrocytosisMaBeacham Memorial HospitalPT/[id number] 09:30:00 Test Item Value Reference Range Interpretation Comments prothrombin time (test code = 10.5 seconds 10.3-12.3 prothrombin time) INR in Blood by Coagulation 0.95 assay (test code = 66737-5) [facility] [id number] 09:30:00 Test Item Value Reference Range Interpretation Comments INR in Blood by Coagulation 23.4 seconds 22.5-37.0 assay (test code = 16791-1) [facility]Com[facility] 2000 panel - Serum or Plasma [...] Plasma (test code = 6768-6) [facility] CentralMagnesium [Moles/volume] in Unspecified specimen 2019-06-03 09:30:00 Test Item Value Reference Range Interpretation Comments magnesium level (test code = 1.8 mg/dL 1.6-2.4 magnesium level) [facility] GroupEth[facility] [Mass/volume] in Serum or [id number] 09:30:00 Test Item Value Reference Range Interpretation Comments alcohol level (test code = alcohol <10.1 0.00-10.1 level) [facility] kinase [Enzymatic activity/volume] in Serum or [id number] 09:30:00 Test Item Value Reference Range Interpretation Comments creatine kinase (test code = creatine 150 U/L 20-180 kinase) [facility] CentralNatriuretic peptide.B prohormone N-Terminal [Mass/volume] in Serum or [id number] 09:30:00 Test Item Value Reference Range Interpretation Comments N-term pro natriuretic peptide 200 pg/mL 0-125 H (test code = N-term pro natriuretic peptide) [facility] CentralTroponin I.cardiac [Mass/volume] in [id number] 09:30:00 Test Item Value Reference Range Interpretation Comments cardiac troponin I (test code = cardiac <0.30 0.0-0.5 troponin I) [facility] kinase.MB [Mass/volume] in Serum or Plasma 2019-06-03 09:30:00 Test Item Value Reference Range Interpretation Comments mass creatinine kinase-mb (test 2.3 NG/mL 0.0-3.6 code = mass creatinine kinase-mb) [facility] CentralMyoglobin [Mass/volume] in Serum or [id number] 09:30:00 Test Item Value Reference Range Interpretation Comments myoglobin (test code = myoglobin) 37 NG/mL 25-58 [facility] W Auto Differential panel - [id number] 09:30:00 Test Item Value Reference Range Interpretation Comments white blood count (test code = 5.6 K/uL 4.0-11.5 white blood count) red blood count (test code = red 3.98 M/uL 3.80-5.20 blood count) hemoglobin (test code = 12.7 g/dL 10.5-15.7 hemoglobin) hematocrit (test code = 39.8 % 34.0-50.0 hematocrit) Erythrocyte mean corpuscular 100.0 fL 86-100 volume [Entitic volume] (test code = 73386-0) mean corpuscular hemoglobin (test 31.9 pg 26.2-33.4 [...] 44.4-80.1 leukocytes in Blood (test code = 35851-5) Granulocytes Immature [#/volume] 0.0 K/uL 0.0-0.03 in Blood (test code = 20966-0) lymphocyte% (test code = 15.1 % 10.0-50.0 lymphocyte%) mono % (test code = mono %) 6.8 % 3.6-12.0 eos % (test code = eos %) 0.7 % 0.0-5.4 Basophils/100 leukocytes in 0.4 % 0.1-1.2 Unspecified specimen (test code = 91828-4) Neutrophils.band form [#/volume] 4.29 K/uL 1.56-6.13 in Blood (test code = 90897-8) Lymphocytes [#/volume] in 0.8 K/uL 1.18-3.74 L Unspecified specimen by Automated count (test code = 18031-2) mono # (test code = mono #) 0.38 K/uL 0.24-0.86 eos # (test code = eos #) 0.04 K/uL 0.04-0.36 basophil # (test code = basophil 0.02 K/uL 0.01-0.08 #) NRBC% (test code = NRBC%) 0 /100 WBC 0-0.2 NRBC# (test code = NRBC#) 0 K/uL [facility] panel, [id number] 09:30:00 NeutrophilsBandLymphocyteAtypical LymphMonocyteEosinophilPlatelet EstimatePlatelet MorphologyMacrocytosisMaBeacham Memorial HospitalPT/[id number] 09:30:00 Test Item Value Reference Range Interpretation Comments prothrombin time (test code = 10.5 seconds 10.3-12.3 prothrombin time) INR in Blood by Coagulation 0.95 assay (test code = 01696-6) [facility] thromboplastin [id number] 09:30:00 Test Item Value Reference Range Interpretation Comments INR in Blood by Coagulation 23.4 seconds 22.5-37.0 assay (test code = 18395-5) [facility] CentralComprehensive metabolic 2000 panel - Serum or Plasma [...] Serum or Plasma (test code = 6768-6) [facility] GroupMagn[facility] [Moles/volume] in Unspecified specimen 2019-06-03 09:30:00 Test Item Value Reference Range Interpretation Comments magnesium level (test code = 1.8 mg/dL 1.6-2.4 magnesium level) [facility] CentralEthanol [Mass/volume] in Serum or [id number] 09:30:00 Test Item Value Reference Range Interpretation Comments alcohol level (test code = alcohol <10.1 0.00-10.1 level) [facility]Creatine kinase [Enzymatic activity/volume] in Serum or [id number] 09:30:00 Test Item Value Reference Range Interpretation Comments creatine kinase (test code = creatine 150 U/L 20-180 kinase) [facility] CentralNatriuretic peptide.B prohormone N-Terminal [Mass/volume] in Serum or [id number] 09:30:00 Test Item Value Reference Range Interpretation Comments N-term pro natriuretic peptide 200 pg/mL 0-125 H (test code = N-term pro natriuretic peptide) [facility] CentralTroponin I.cardiac [Mass/volume] in [id number] 09:30:00 Test Item Value Reference Range Interpretation Comments cardiac troponin I (test code = cardiac <0.30 0.0-0.5 troponin I) [facility]Creatine kinase.MB [Mass/volume] in Serum or Plasma 2019-06-03 09:30:00 Test Item Value Reference Range Interpretation Comments mass creatinine kinase-mb (test 2.3 NG/mL 0.0-3.6 code = mass creatinine kinase-mb) [facility] CentralMyoglobin [Mass/volume] in Serum or [id number] 09:30:00 Test Item Value Reference Range Interpretation Comments myoglobin (test code = myoglobin) 37 NG/mL -58 [facility] CentralUrinalysis complete panel - [id number] 05:40:00 Test Item Value Reference Range Interpretation Comments Color of Urine by Auto yellow (test code = 20429-4) Appearance of Urine (test SL cloudy clear A code = 5767-9) Glucose [Presence] in Urine negative negative by Automated test strip (test code = 32355-4) Bilirubin.total negative negative [Mass/volume] in Urine (test code = 1978-6) Ketones [Mass/volume] in =1 negative H Urine by Automated test strip (test code = 29796-8) Specific gravity of Urine 1.022 1.003-1.030 by Automated test strip (test code = 79621-4) blood urine (test code = trace negative blood urine) pH of Urine (test code = 7.000 5-9 2756-5) protein urine (UA) (test =1+ (30 negative H code = protein urine (UA)) Urobilinogen [Presence] in =2.0 0.2-1.0 H Urine (test code = 21795-4) Nitrite [Presence] in Urine positive negative H by Test strip (test code = 5802-4) Leukocyte esterase =4 negative H [Presence] in Urine by Automated test strip (test code = 28206-7) Erythrocytes [#/volume] in =6-10 0-5 H Urine by Automated count (test code = 798-9) Leukocytes [#/area] in =11-14 0-5 H Urine sediment by Automated count (test code = 59191-4) Epithelial cells [Presence] =11-25 0-5 H in Urine sediment by Light microscopy (test code = 70232-2) Bacteria identified in trace none detect Urine by Culture (test code = 630-4) Casts [#/area] in Urine =2-5 none detect sediment by Automated count (test code = 08984-1) urine culture added? (test no. contaminated. code = urine culture added?) [facility] CentralBacteria identified in Urine by [id number] 05:40:00Bacteria Ur [facility]PT/[id number] 05:17:00 Test Item Value Reference Range Interpretation Comments prothrombin time (test code = 9.9 seconds 10.3-12.3 L prothrombin time) INR in Blood by Coagulation assay 0.94 (test code = 40765-9) [facility] thromboplastin [id number] 05:17:00 Test Item Value Reference Range Interpretation Comments INR in Blood by Coagulation 24.3 seconds 22.5-37.0 assay (test code = 70407-9) [facility] W Auto Differential panel - [id number] 05:17:00 Test Item Value Reference Range Interpretation Comments white blood count (test 5.6 K/uL 4.0-11.5 code = white blood count) red blood count (test 4.89 M/uL 3.80-5.20 code = red blood count) Hemoglobin [Mass/volume] 15.0 g/dL 10.5-15.7 in Blood (test code = 718-7) hematocrit (test code = 47.9 % 34.0-50.0 hematocrit) Erythrocyte mean 97.9 fL 78-98 corpuscular volume [Entitic volume] (test code = 94919-5) Erythrocyte mean 30.6 pg 26.2-33.4 corpuscular hemoglobin [Entitic mass] (test code = 15741-7) mean corpuscular HGB 31.3 g/dL 31.5-36.2 L conc (test code = mean corpuscular HGB conc) red cell distribution 13.3 % 11.5-15.5 width (test code = red cell distribution width) Platelets [#/volume] in 283 K/uL 137-338 Blood (test code = 65996-5) Platelet mean volume 6.8 fL 8.4-11.8 L [Entitic volume] in Blood (test code = 25790-1) Neutrophils.band 68.6 % 44.4-80.1 form/100 leukocytes in Blood (test code = 08189-6) Lymphocytes/100 20.7 % 10.0-50.0 leukocytes in Body fluid (test code = 05252-5) Monocytes/100 leukocytes 9.2 % 3.6-12.04 in Blood by Automated count (test code = 5905-5) Eosinophils/100 0.4 % 0.0-5.41 leukocytes in Blood by Automated count (test code = 713-8) Basophils/100 leukocytes 1.1 % 0.0-0.79 H in Blood by Automated count (test code = 706-2) Platelet morphology hypersegmented polys normal RBC. finding [Identifier] in Blood (test code = 45426-7) [facility] panel, [id number] 05:17:00 NeutrophilsBandLymphocyteAtypical LymphMonocyteEosinophilBasophilMyelocytePlatelet EstimatePlatelet M orphologyHypersegmented PolysToxic VacuolationSmudge CellsMerit Health CentralComprehensive metabolic 2000 panel - Serum or [id number] 05:17:00 Test Item Value Reference Range Interpretation [...] Plasma (test code = 6768-6) [facility]Creatine kinase [Enzymatic activity/volume] in Serum or [id number] 05:17:00 Test Item Value Reference Range Interpretation Comments creatine kinase (test code = creatine 246 U/L 20-180 H kinase) [facility] CentralTroponin I.cardiac [Mass/volume] in [id number] 05:17:00 Test Item Value Reference Range Interpretation Comments cardiac troponin I (test code = cardiac <0.30 0.0-0.5 troponin I) [facility]Creat[facility] kinase.MB [Mass/volume] in Serum or Plasma 2018-10-09 05:17:00 Test Item Value Reference Range Interpretation Comments mass creatinine kinase-mb (test 3.9 NG/mL 0.0-3.6 H code = mass creatinine kinase-mb) [facility]
--- NOTE | 2021-09-11 18:11 | RAD REPORT ---
EXAM DESCRIPTION: RAD - Chest Single View - 09/11/2021 6:00 pm CLINICAL HISTORY: DYSPNEA Chest pain. COMPARISON: Chest Single View dated 07/31/2021; Chest Single View dated 04/05/2021; Chest Single View dated 01/01/2021 FINDINGS: Portable technique limits examination quality. Mild pulmonary edema is seen. The heart is moderately enlarged in size. No displaced fractures. IMPRESSION: Mild CHF pattern.
[2021-09-11 18:22] LABS: Absolute Lymphocytes (CBC) 0.7 K/uL (0.7-4.9); Lymphocytes % 20.9 % (15.3-44.8); MPV 7.6 fL (7.6-11.3); RBC Red Blood Cell Count 4.58 M/uL (3.86-4.86)
[2021-09-11 18:33] LABS: Protime INR 0.97
[2021-09-11 18:49] LABS: ALT/SGPT 44 U/L (12-78); AST/SGOT 24 U/L (15-37); Albumin 3.2 g/dL (3.4-5.0); Alkaline Phosphatase 102 U/L (45-117); BUN Blood Urea Nitrogen 16 mg/dL (7-18); Bicarbonate 26 mmol/L (21-32); Bilirubin Direct < 0.1 mg/dL (0-0.2); Bilirubin Total 0.2 mg/dL (0.2-1.0); Glucose Level 153 mg/dL (74-106); NT PRO-BNP 138 pg/mL (<450); Potassium 4.1 mmol/L (3.5-5.1); Protein, Total 8.5 g/dL (6.4-8.2); Sodium Level 140 mmol/L (136-145); Troponin (Emerg Dept Use Only) 0.08 ng/mL (0.0-0.045)
--- NOTE | 2021-09-11 18:55 | EDPHYS ---
Physician Documentation [facility] Name: Kyler Rushing Age: 76 yrs Sex: Female : 1945 Arrival Date: 09/11/2021 Time: 16:47 Bed 18 Private MD: ED Physician Nigel Rodriguez HPI: 09/11 18:42 This 76 yrs old Black Female presents to ER via EMS with complaints of Shortness Of jr8 Breath. 18:42 The patient has shortness of breath at rest. Onset: The symptoms/episode began/occurred jr8 gradually. Duration: The symptoms are continuous, and are unchanged since they started. The patient's shortness of breath is aggravated by nothing, is alleviated by nothing. Associated signs and symptoms: The patient has no apparent associated signs or symptoms. Severity of symptoms: At their worst the symptoms were mild in the emergency department the symptoms are unchanged. It is unknown whether or not the patient has had similar symptoms in the past. The patient has not recently seen a physician. Family stated that they noticed she had increased shortness of breath over the last 24 hours. Denies cough, fever, chest tightness or any other symptoms at this time. Family did note that patient does have a congestive heart failure history.. Historical: - Allergies: 16:49 No Known Allergies; bp - PMHx: 16:49 CHF; CVA; left sided weakness; Diabetes - IDDM; High Cholesterol; Hypertension; bp - Immunization history:: Adult Immunizations up to date. - Social history:: Smoking status: unknown. ROS: 18:42 Eyes: Negative for injury, pain, redness, and discharge, ENT: Negative for injury, jr8 pain, and discharge, Neck: Negative for injury, pain, and swelling, Cardiovascular: Negative for chest pain, palpitations, and edema, Abdomen/GI: Negative for abdominal pain, nausea, vomiting, diarrhea, and constipation, Back: Negative for injury and pain, MS/Extremity: Negative for injury and deformity, Skin: Negative for injury, rash, and discoloration, Neuro: Negative for headache, weakness, numbness, tingling, and seizure. 18:42 Respiratory: Positive for dyspnea on exertion, shortness of breath, at rest. Exam: 18:42 Constitutional: This is a well developed, well nourished patient who is awake, alert, jr8 and in no acute distress. Cardiovascular: Regular rate and rhythm with a normal S1 and S2. No gallops, murmurs, or rubs. Normal PMI, no JVD. No pulse deficits. Abdomen/GI: Soft, non-tender, with normal bowel sounds. No distension or tympany. No guarding or rebound. No evidence of tenderness throughout. Back: No spinal tenderness. No costovertebral tenderness. Full range of motion. Skin: Warm, dry with normal turgor. Normal color with no rashes, no lesions, and no evidence of cellulitis. MS/ Extremity: Pulses equal, no cyanosis. Neurovascular intact. Full, normal range of motion. Neuro: Awake and alert, GCS 15, oriented to person, place, time, and situation. Cranial nerves II-XII grossly intact. Motor strength 5/5 in all extremities. Sensory grossly intact. 18:42 Respiratory: the patient does not display signs of respiratory distress, Respirations: tachypnea, that is mild, Breath sounds: are clear throughout, no bronchial sounds, no decreased breath sounds, no rales, rhonchi, no stridor, no wheezing, Respiratory rate: 20 Vital Signs: 17:23 BP 180 / 80; Pulse 85; Resp 16; Temp 97.5; Pulse Ox 100% ; bp 18:29 BP 152 / 93; Pulse 80; Resp 18; Pulse Ox 100% on R/A; ww 09/12 01:22 BP 143 / 75; Pulse 74; Resp 19; Pulse Ox 96% 0 lpm ; sv1 MDM: 09/11 16:52 Patient medically screened. [facility] 18:53 Data reviewed: vital signs, nurses notes, lab test result(s), EKG, radiologic studies, [facility] plain films. Data interpreted: Pulse oximetry: on room air is 100 %. Interpretation: normal. Counseling: I had a detailed discussion with the patient and/or guardian regarding: the historical points, exam findings, and any diagnostic results supporting the discharge/admit diagnosis, lab results, radiology results, the need for further work-up and treatment in the hospital. 23:37 ED course: Discussed case with hospitalist. Because she is satting adequately at this [facility] time he feels that patient can go home to follow-up. I have rechecked her troponin which has remained the same. Patient still remains 100% on room air. We did find that she is also Covid positive. Overall patient has improved. We will send her home to follow-up with cardiology and to isolate. 09/11 17:15 Order name: Basic Metabolic Panel jr8 09/11 17:15 Order name: CBC with Diff jr8 09/11 17:15 Order name: LFT's; Complete Time: 18:52 jr8 09/11 17:15 Order name: Magnesium; Complete Time: 18:52 jr8 09/11 17:15 Order name: NT PRO-BNP; Complete Time: 18:52 jr8 09/11 17:15 Order name: PT-INR; Complete Time: 18:41 jr8 09/11 17:15 Order name: Troponin (emerg Dept Use Only); Complete Time: 18:52 jr8 09/11 17:15 Order name: XRAY Chest (1 view); Complete Time: 18:15 jr8 09/11 17:15 Order name: COVID-19 SARS RT PCR (Document "Date of Onset" if Symptomatic); Complete Time: 19:35 09/11 17:15 Order name: Basic Metabolic Panel; Complete Time: 18:52 EDMS 09/11 17:15 Order name: CBC with Automated Diff; Complete Time: 21:18 EDMS 09/11 20:04 Order name: Troponin (emerg Dept Use Only) jr09/11 20:04 Order name: Troponin (Emerg Dept Use Only); Complete Time: 23:37 EDMS 09/11 20:32 Order name: CBC Smear Scan; Complete Time: 21:18 EDMS 09/11 17:15 Order name: EKG; Complete Time: 17:16 8 09/11 17:15 Order name: Cardiac monitoring; Complete Time: 17:23 jr8 09/11 17:15 Order name: EKG - Nurse/Tech; Complete Time: 18:10 8 09/11 17:15 Order name: IV Saline Lock; Complete Time: 18:10 jr8 09/11 17:15 Order name: Labs collected and sent; Complete Time: 18:10 jr8 09/11 17:15 Order name: O2 Per Protocol; Complete Time: 17:23 jr8 09/11 17:15 Order name: O2 Sat Monitoring; Complete Time: 17:23 jr8 Administered Medications: 19:00 Drug: Lasix (furosemide) 60 mg Route: IVP; Site: right hand; sv1 09/12 01:28 Follow up: Response: No adverse reaction sv1 09/11 19:10 Drug: HYDROcodone-acetaminophen 5 mg-325 mg 1 tabs Route: PO; ww 09/12 01:26 Follow up: Response: No adverse reaction; Pain is decreased sv1 09/11 19:50 Drug: Decadron - Dexamethasone 10 mg Route: IVP; Site: right hand; sv1 09/12 01:21 Drug: HYDROcodone-acetaminophen 5 mg-325 mg 1 tabs Route: PO; sv1 01:27 Follow up: Response: No adverse reaction sv1 Disposition: 08:48 Co-signature as Attending Physician, Nigel Rodriguez MD I agree with the assessment and trina plan of care. Disposition Summary: 09/11/21 23:39 Discharge Ordered Location: Home(09/11/21 23:39) jr8 Problem: new(09/11/21 23:39) jr8 Symptoms: have improved(09/11/21 23:39) jr8 Condition: Stable(09/11/21 23:39) jr8 Diagnosis - Chronic systolic (congestive) heart failure jr8 - SARS-associated coronavirus as the cause of diseases classified elsewhere jr8 Followup: jr8 - With: Xavier Eugene MD - When: 1 week - Reason: Recheck today's complaints, Continuance of care, Re-evaluation by your physician Discharge Instructions: - Discharge Summary Sheet jr8 - Heart Failure, Diagnosis jr8 - COVID-19 jr8 - COVID-19: Quarantine vs. Isolation - [facility] jr8 Forms: - Medication Reconciliation Form jr8 - Thank You Letter jr8 - Antibiotic Education jr8 - Prescription Opioid Use jr8 Signatures: Dispatcher [employer] Nigel Singh MD MD cha Roszak, Josh, PA PA jr8 Eddy Bowles RN RN bp Alexis Hinojosa RN RN sv1 Tonya Nguyen RN RN ww Corrections: (The following items were deleted from the chart) 09/11 19:22 18:54 Observation jr8 jr8 19:22 18:54 MoriahMario amezquita jr8 jr8 19:22 18:54 Telemetry/MedSurg (observation) jr8 jr8 19:22 18:54 Stable jr8 jr8 19: 18:54 new jr8 jr8 : 18:54 have improved jr8 jr8 19: 18:54 Standard jr8 jr8 19: 18:54 jr8 jr8 19: 18:54 Acute systolic (congestive) heart failure jr8 jr8 : 18:54 Subsequent non-ST elevation (NSTEMI) myocardial infarction jr8 jr8
--- NOTE | 2021-09-11 18:55 | ER ---
Nurse's Notes [facility] Name: Kyler Rushing Age: 76 yrs Sex: Female : 1945 Arrival Date: 09/11/2021 Time: 16:47 Bed 18 Private MD: Diagnosis: Chronic systolic (congestive) heart failure;SARS-associated coronavirus as the cause of diseases classified elsewhere Presentation: 09/11 16:47 Chief complaint: EMS states: SHORTNESS OF BREATH x3 DAYS, WORSE TODAY. Coronavirus bp screen: shortness of breath, Client presents with at least one sign or symptom that may indicate coronavirus-19. Ebola Screen: No symptoms or risks identified at this time. Initial Sepsis Screen: Does the patient meet any 2 criteria? No. Patient's initial sepsis screen is negative. Does the patient have a suspected source of infection? No. Patient's initial sepsis screen is negative. Risk Assessment: Do you want to hurt yourself or someone else? Patient reports no desire to harm self or others. Onset of symptoms is unknown. 16:47 Method Of Arrival: EMS: [facility] bp 16:47 Acuity: TOVA 3 bp Triage Assessment: 16:49 General: Appears distressed, uncomfortable, obese, unkempt, Behavior is agitated, bp anxious. Pain: Complains of pain in right leg and left leg. EENT: No deficits noted. Neuro: No deficits noted. Cardiovascular: No deficits noted. Respiratory: Reports shortness of breath Onset: The symptoms/episode began/occurred today, the patient has mild shortness of breath. GI: No signs and/or symptoms were reported involving the gastrointestinal system. : No signs and/or symptoms were reported regarding the genitourinary system. Derm: No deficits noted. Musculoskeletal: No deficits noted. Historical: - Allergies: 16:49 No Known Allergies; bp - PMHx: 16:49 CHF; CVA; left sided weakness; Diabetes - IDDM; High Cholesterol; Hypertension; bp - Immunization history:: Adult Immunizations up to date. - Social history:: Smoking status: unknown. Screenin:55 Abuse screen: Denies threats or abuse. Denies injuries from another. Nutritional bp screening: No deficits noted. Tuberculosis screening: No symptoms or risk factors identified. Fall Risk None identified. Assessment: 16:55 General: SEE TRIAGE NOTE. bp 18:10 General: Appears in no apparent distress. obese, Behavior is calm, cooperative. Pain: ww Complains of pain in left lateral ankle, left Achilles, left medial ankle and anterior aspect of left ankle. Neuro: Level of Consciousness is awake, alert, obeys commands, gets confused but able to reorient. Cardiovascular: Reports None Capillary refill is sluggish Edema is 1+ to left foot, left toes, right foot and right toes Rhythm is regular. Respiratory: Airway is patent Respiratory effort is even, unlabored, Respiratory pattern is regular, symmetrical. GI: No deficits noted. No signs and/or symptoms were reported involving the gastrointestinal system. : No signs and/or symptoms were reported regarding the genitourinary system. EENT: No signs and/or symptoms were reported regarding the EENT system. Derm: Skin has lesions on left lower extremity ulcer, dressing removed that was applied by home health nurse and inspected by PA and redressed. 09/12 01:24 Respiratory: Breath sounds are clear bilaterally. Breath sounds with wheezes sv1 bilaterally. Vital Signs: 09/11 17:23 BP 180 / 80; Pulse 85; Resp 16; Temp 97.5; Pulse Ox 100% ; bp 18:29 BP 152 / 93; Pulse 80; Resp 18; Pulse Ox 100% on R/A; ww 09/12 01:22 BP 143 / 75; Pulse 74; Resp 19; Pulse Ox 96% 0 lpm ; sv1 ED Course: 09/11 16:47 Patient arrived in ED. bp 16:47 Eddy Bowles, ANDRE is Primary Nurse. bp 16:48 Triage completed. bp 16:49 Arm band placed on. bp 16:52 Sanchez Schulz PA is PHCP. jr8 16:52 Nigel Rodriguez MD is Attending Physician. jr8 16:55 Patient has correct armband on for positive identification. Placed in gown. Bed in low bp position. Call light in reach. Side rails up X2. 17:43 Missed attempt(s): 22 gauge in right forearm. ww 18:01 XRAY Chest (1 view) In Process Unspecified. EDMS 18:10 Basic Metabolic Panel Sent. ww 18:10 CBC with Diff Sent. ww 18:10 EKG done, by ED staff, reviewed by Nigel Rodriguez MD. ww 18:54 Mario Blue is Hospitalizing Provider. jr8 19:15 Primary Nurse role handed off by Eddy Bowles, ANDRE mw2 22:43 Repeat lab(s) drawn. by nh, sent to lab. mw2 22:44 Troponin (Emerg Dept Use Only) Sent. mw2 23:38 Xavier Eugene MD is Referral Physician. jr8 09/12 01:03 Alexis Hinojosa, RN is Primary Nurse. sv1 01:24 No provider procedures requiring assistance completed. sv1 01:25 IV discontinued. sv1 01:27 Troponin (emerg Dept Use Only) Sent. sv1 Administered Medications: 09/11 19:00 Drug: Lasix (furosemide) 60 mg Route: IVP; Site: right hand; sv1 09/12 01:28 Follow up: Response: No adverse reaction sv1 09/11 19:10 Drug: HYDROcodone-acetaminophen 5 mg-325 mg 1 tabs Route: PO; ww 09/12 01:26 Follow up: Response: No adverse reaction; Pain is decreased sv1 09/11 19:50 Drug: Decadron - Dexamethasone 10 mg Route: IVP; Site: right hand; sv1 09/12 01:21 Drug: HYDROcodone-acetaminophen 5 mg-325 mg 1 tabs Route: PO; sv1 01:27 Follow up: Response: No adverse reaction sv1 Outcome: 09/11 18:54 Decision to Hospitalize by Provider. jr8 23:39 Discharge ordered by . jr8 09/12 01:24 Discharged to home via wheelchair, with family. sv1 Condition: stable Discharge instructions given to patient, family. 01:35 Patient left the ED. mw2 Signatures: Dispatcher [employer] EDMS Sanchez Schulz PA PA jr8 Eddy Bowles, RN RN bp Dawit rCuz mw2 Alexis Hinojosa, RN ANDRE sv1 Tonya Nguyen RN RN ww Corrections: (The following items were deleted from the chart) 09/11 18:25 17:23 BP 180 / 80; Pulse 85bpm; Resp 16bpm; Pulse Ox 100%; bp bp
[2021-09-11] MEDS ORDERED: HYDROCODONE/APAP 5/325 MG TAB ONE (19:09)
[2021-09-11 21:09] LABS: Anisocytosis 1+; Blood Morphology Comment NOTED (NOT SEEN); Platelet Estimate ADEQ; Teardrop Cell 1+; White Blood Cell Scan OK (OK)
[2021-09-12] MEDS ORDERED: HYDROCODONE/APAP 5/325 MG TAB ONE (01:09)
[2021-09-12 01:44] VITALS: TEMP 97.5
[2021-09-12 01:47] VITALS: BP 143/75; O2SAT 96
--- NOTE | 2021-09-12 11:17 | EKG ---
Test Date: 2021-09-11 Test Time: 18:08:29 Pin Machine Operator: MICHI Hills MEASUREMENT RESULTS: Intervals: Rate: 79 DE: 130 QRSD: 68 QT: 392 QTc: 449 [place]: P: 81 DE: 130 QRS: 1 T: 22 INTERPRETIVE STATEMENTS: Normal sinus rhythm Normal ECG Compared to ECG 07/31/2021 12:16:45 No significant changes Electronically Signed On 09-12-21 11:14:12 TRANSFER CAR OPERATOR DRIER by Xavier Eugene
== END 2021-09-12 01:35 | disposition home or self-care (01) ==
LOC: ER 16:20
DX: I50.22 Chronic systolic (congestive) heart failure (principal); U07.1 COVID-19; I10 Essential (primary) hypertension
CPT/HCPCS: 93005; 85025; 80048; 36415; 83735; 85610; 80076; 84484 ×2; 83880; 71045; 96375; 96374; 99284; U0003

== ENCOUNTER 2022-02-15 10:49 | Inpatient (IN) | payer OTHER ==
--- OUTSIDE RECORDS SUMMARY | 2022-02-15 10:55 | XMS REPORT | Continuity of Care Document ---
:1945 Author Organization [facility] t Address [address] [place] [address] Care Team Providers Name Role Phone Erica_F Attending Clinician Unavailable DENISE Attending Clinician Unavailable Erica_Lorene Admitting Clinician Unavailable Payers Payer Name Policy Type Policy Number Effective Date Expiration Date S jose antonio [facility] - MEDICARE [id number] COMPLETE (MEDICARE REPLACEMENT HMO) AETNA [id number] 2020 00:00:00 AETNA (MEDICARE [id number] REPLACEMENT HMO) 00:00:00 MEDICARE B-[place]: [id number] 2011 [employer] 00:00:00 Problems Condition Condition Condition Status Onset [...] Start Date Stop Date Source Former Smoker [facility] Medications Ordered Filled Start [...] pain atorvastati atorvastati No atorvastat [place] 10 mg n 10 mg in 10 mg da tablet TAKE tablet TAKE tablet Medical ONE (1) ONE (1) TAKE ONE Group TABLET(S) TABLET(S) (1) BY MOUTH AT BY MOUTH AT TABLET(S) BEDTIME. BEDTIME. BY MOUTH AT BEDTIME. clopidogrel clopidogrel No clopidogre [place] 75 mg [...] A DAY. BY MOUTH ONCE A DAY. folic acid folic acid No folic acid [place] 1 mg tablet 1 mg tablet 1 mg d a TAKE ONE TAKE ONE tablet Medic al (1) (1) TAKE ONE Group TABLET(S) TABLET(S) (1) BY MOUTH BY MOUTH TABLET(S) DAILY. DAILY. BY MOUTH DAILY. furosemide furosemide No furosemide [place] 20 mg 20 mg 20 mg [...] MOUTH ONCE A DAY. hydroxyzine hydroxyzine No hydroxyzin [place] pamoate 25 pamoate 25 e pamoate da mg capsule mg capsule 25 mg Me dical TAKE ONE TAKE ONE capsule Grou p (1) (1) TAKE ONE CAPSULE(S) CAPSULE(S) (1) BY MOUTH BY MOUTH CAPSULE(S) ONCE A DAY ONCE A DAY BY MOUTH AT BEDTIME. AT BEDTIME. ONCE A DAY AT BEDTIME. insulin insulin No insulin [facility] lispro lispro lispro da (U-100) 100 (U-100) 100 (U-100) Medical unit/mL unit/mL 100 Group subcutaneou subcutaneou unit/mL s solution s solution subcutaneo INJECT ONE INJECT ONE us (1) SLIDING (1) SLIDING solution SCALE DOSE SCALE DOSE INJECT ONE SUBCUTANEOU SUBCUTANEOU (1) SLY 3 TIMES SLY 3 TIMES SLIDING A DAY A DAY SCALE DOSE NEEDED (MAX NEEDED (MAX SUBCUTANEO DAILY DOSE DAILY DOSE USLY 3 OF 40 OF 40 TIMES A UNITS). UNITS). DAY NEEDED (MAX DAILY DOSE OF 40 UNITS). isosorbide isosorbide No isosorbide [place] mononitrate mononitrate [...] IN 15 MINS. 15 MINS. 15 MINS. Santyl 250 Santyl 250 No Santyl 250 [facility] unit/gram unit/gram unit/gram da topical topical topical Medica l ointment ointment ointment Bon up APPLY TO APPLY TO APPLY TO WOUNDS ONCE WOUNDS ONCE WOUNDS A DAY. A DAY. ONCE A DAY. sucralfate sucralfate No sucralfate [place] 1 gram 1 gram 1 gram da tablet TAKE tablet TAKE tablet Medical ONE (1) ONE (1) TAKE ONE Group TABLET(S) TABLET(S) (1) BY MOUTH BY MOUTH TABLET(S) BEFORE BEFORE BY MOUTH MEALS AND MEALS AND BEFORE ONCE AT ONCE AT MEALS AND BEDTIME. BEDTIME. ONCE AT BEDTIME. Immunizations Ordered Immunization Filled Immunization Date Status Commen ts Source Name Name influenza, influenza, 2021-07-13 Completed [facility] injectable, injectable, 00:00:00 Medical Grou p quadrivalent quadrivalent influenza, influenza, 2020-06-17 Completed [facility] injectable, injectable, 00:00:00 Medical Grou p quadrivalent quadrivalent influenza, high dose influenza, high 2019-07-15 Completed [facility] seasonal dose seasonal 16:23:03 Medical Bon up Vital Signs Vital Name Observation Time Observation Value Comments Source Height 2022-01-30 00:00:00 62 [in_i] [facility] BMI (Body Mass 2022-01-30 00:00:00 38.5 kg/m2 [facility] Medical Index) Group Body Weight 2022-01-30 00:00:00 3364 [oz_av] [facility] BP Diastolic 2022-01-17 00:00:00 94 mm[Hg] [facility] Height 2022-01-17 00:00:00 62 [in_i] [facility] BMI (Body Mass 2022-01-17 00:00:00 38.2 kg/m2 [facility] Medical Index) Group BP Systolic 2022-01-17 00:00:00 168 mm[Hg] [facility] Body Weight 2022-01-17 00:00:00 3344 [oz_av] [facility] Height 2021-11-01 00:00:00 62 [in_i] [facility] BMI (Body Mass 2021-11-01 00:00:00 36.9 kg/m2 [facility] manager Medical Index) Group Body Weight 2021-11-01 00:00:00 3232 [oz_av] [facility] BP Diastolic 2021-07-13 00:00:00 87 mm[Hg] [facility] Height 2021-07-13 00:00:00 62 [in_i] [facility] BMI (Body Mass 2021-07-13 00:00:00 41.8 kg/m2 [facility] Medical Index) Group BP Systolic 2021-07-13 00:00:00 140 mm[Hg] [facility] Body Weight 2021-07-13 00:00:00 3656 [oz_av] [facility] BP Diastolic 2021 00:00:00 80 mm[Hg] [facility] Height 2021 00:00:00 62 [in_i] [facility] BMI (Body Mass 2021 00:00:00 40.6 kg/m2 [facility] Medical Index) Group BP Systolic 2021 [...] BMI (Body Mass 2020-11-21 00:00:00 38.8 kg/m2 [facility] Medical Index) Group BP Systolic 2020-11-21 00:00:00 158 mm[Hg] [facility] Body Weight 2020-11-21 00:00:00 3393 [oz_av] [facility] BP Diastolic 2020-07-11 00:00:00 95 mm[Hg] [facility] Height 2020-07-11 00:00:00 62 [in_i] [facility] BMI (Body Mass 2020-07-11 00:00:00 37.7 kg/m2 [facility] Index) [facility] BP Systolic 2020-07-11 00:00:00 151 mm[Hg] [facility] Body Weight 2020-07-11 00:00:00 3297 [oz_av] [facility] Height 2020-05-10 00:00:00 62 [in_i] [facility] BMI (Body Mass 2020-05-10 00:00:00 37.9 kg/m2 [facility] Index) [facility] Body Weight 2020-05-10 00:00:00 3312 [oz_av] [facility] BP Diastolic 2020-04-11 00:00:00 87 mm[Hg] [facility] Height 2020-04-11 00:00:00 62 [in_i] [facility] BMI (Body Mass 2020-04-11 00:00:00 37.9 kg/m2 [facility] Index) [facility] BP Systolic 2020-04-11 00:00:00 [...] (Body Mass 2020-02-08 00:00:00 41.4 kg/m2 [facility] Index) [facility] BP Systolic 2020-02-08 00:00:00 151 mm[Hg] [facility] Body Weight 2020-02-08 00:00:00 3621 [oz_av] [facility] BP Diastolic 2020-01-12 00:00:00 71 mm[Hg] [facility] Height 2020-01-12 00:00:00 62 [in_i] [facility] BMI (Body Mass 2020-01-12 00:00:00 40.6 kg/m2 [facility] Medical Index) Group BP Systolic 2020-01-12 00:00:00 128 mm[Hg] [facility] Body Weight 2020-01-12 00:00:00 222.1 [lb_av] [facility] BP Diastolic 2019-11-04 00:00:00 76 mm[Hg] [facility] Height 2019-11-04 00:00:00 62 [in_i] [facility] BMI (Body Mass 2019-11-04 00:00:00 41.9 kg/m2 [facility] Medical Index) Group BP Systolic 2019-11-04 00:00:00 125 mm[Hg] [facility] Body Weight 2019-11-04 00:00:00 3664 [oz_av] [facility] BP Diastolic 2019-08-17 00:00:00 94 mm[Hg] [facility] Height 2019-08-17 00:00:00 62 [in_i] [facility] BMI (Body Mass 2019-08-17 00:00:00 42.4 kg/m2 [facility] Medical Index) Group BP Systolic 2019-08-17 00:00:00 162 mm[Hg] [facility] Body Weight 2019-08-17 00:00:00 3712 [oz_av] [facility] BP Diastolic 2019-07-15 00:00:00 93 mm[Hg] [facility] Height 2019-07-15 00:00:00 62 [in_i] [facility] BMI (Body Mass 2019-07-15 00:00:00 43.2 kg/m2 [facility] Medical Index) Group BP Systolic 2019-07-15 00:00:00 167 mm[Hg] [facility] Body Weight 2019-07-15 00:00:00 3780 [oz_av] [facility] BP Diastolic 2019-07-02 00:00:00 86 mm[Hg] [facility] Height 2019-07-02 00:00:00 62 [in_i] [facility] BMI (Body Mass 2019-07-02 00:00:00 43.5 kg/m2 [facility] Medical Index) Group BP Systolic 2019-07-02 00:00:00 144 mm[Hg] [facility] Body Weight 2019-07-02 00:00:00 3808 [oz_av] [facility] BP Diastolic 2019-06-08 00:00:00 86 mm[Hg] [facility] Height 2019-06-08 00:00:00 62 [in_i] [facility] BMI (Body Mass 2019-06-08 00:00:00 42.1 kg/m2 [facility] Medical Index) Group BP Systolic 2019-06-08 00:00:00 144 mm[Hg] [facility] Body Weight 2019-06-08 00:00:00 3680 [oz_av] [facility] BP Diastolic 2019-06-02 00:00:00 91 mm[Hg] [facility] Height 2019-06-02 00:00:00 62 [in_i] [facility] BMI (Body Mass 2019-06-02 00:00:00 41.9 kg/m2 [facility] Medical Index) Group BP Systolic 2019-06-02 00:00:00 145 mm[Hg] [facility] Body Weight 2019-06-02 00:00:00 3665 [oz_av] [facility] BP Diastolic 2019-04-14 00:00:00 76 mm[Hg] [facility] Height 2019-04-14 00:00:00 62 [in_i] [facility] BMI (Body Mass 2019-04-14 00:00:00 43 [facility] BP Systolic 2019-04-14 00:00:00 134 mm[Hg] [facility] Body Weight 2019-04-14 00:00:00 3760 [oz_av] [facility] BP Diastolic 2019-02-03 00:00:00 80 mm[Hg] [facility] Height 2019-02-03 00:00:00 62 [in_i] [facility] BMI (Body Mass 2019-02-03 00:00:00 43.3 kg/m2 [facility] Medical Index) Group BP Systolic 2019-02-03 00:00:00 143 mm[Hg] [facility] Body Weight 2019-02-03 00:00:00 236.9 [lb_av] [facility] Height 2018-10-30 00:00:00 62 [facility]in_i] [facility] (Body Mass 2018-10-30 00:00:00 44.8 [facility]/m2 [facility] BP Systolic 2018-10-30 00:00:00 152 mm[Hg] [facility] Body Weight 2018-10-30 00:00:00 3923 [oz_av] [facility] Procedures Procedure Date / Time Performing Source Performed Clinician MRI, shoulder, w/o contrast 2021-07-13 Vyas devin 00:00:00 Medical Group XR, shoulder 2021-06-26 [facility] 00:00:00 [facility] Group unlisted imaging order 2020-03-31 [facility] 00:00:00 [facility] Group XR, ribs, bilateral 2020-03-31 [facility] 00:00:00 [facility] Group MRI, brain, w/o contrast 2019-07-02 [facility] 00:[facility] US, duplex, carotid artery 2019-07-02 [facility] 00:00:00 [facility] US, echocardiogram, transthoracic, 2019-07-02 [facility] complete, w/ color flow 00:00:00 Medical Group holter monitor 2019-07-02 [facility] 00:00:00 [facility] Group holter monitor 2019-06-29 [facility] 00:00:00 [facility] Group MAMMO, screening, digital, 2019-06-02 [facility] bilateral 00:00:00 [facility] Group MAMMO, screening, digital, 2019-04-14 [facility] bilateral 00:00:00 [facility] Group Thyroid Surgery 1979-09-09 [facility] 00:00:00 [facility] Hysterectomy [facility] Shoulder Joint Surgery [facility] Appendectomy [facility] Eye Surgery Procedure [facility] Esophagogastroduodenoscopy (Surg) [facility] Plan of Care Planned Activity Planned Date Details Comments Source Future Appointment 2022-04-19 [facility] 00:00:[address] [place] [address] [address]; [place] [address] Encounters Start End Encounter Admission Attending Care Care Encounter Source Date/Time Date/Time Type Type Clinicians Facility Department ID 2022-01-30 2022-01-30 Outpatient Zuniga_F [facility] [id number] [facility] 09:13:00 09:13:00 524 [facility] 2022-01-30 2022-01-30 George [facility] [place] - [id number] [facility] 00:00:00 00:00:00 Dallas Borrego MD: [address] [place] [address] 201, [place] [address] , Ph. 2022-01-17 2022-01-17 Outpatient Z[facility]iga_F [facility] [id number] [facility] 09:48:00 09:48:00 511 Medical Group 2022-01-17 2022-01-17 George [facility] [place] - [id number] [facility] 00:00:00 00:00:00 Dallas Borrego MD: [address] [place] [address] 201, [place] [address] , Ph. 2021-11-08 2021-11-08 Outpatient Z[facility]iga_F [facility] [id number] [place] 10:10:00 10:10:00 322 [facility] 2021-11-01 2021-11-01 Outpatient Zuniga_F [facility] [id number] [place] 11:19:00 11:19:00 223 [facility] 2021-11-01 2021-11-01 Outpatient Zuniga_F [facility] [id number] [place] 11:19:00 11:19:00 228 [facility] 2021-11-01 2021-11-01 George [facility] [place] - [id number] [facility] 00:00:00 00:00:00 Dallas Borrego MD: [address] [place] [address] 201, [place] [address] , Ph. 2021-07-13 2021-07-13 Outpatient [facility]iga_F [facility] [id number] [place] 04:49:00 04:49:00 112 [facility] 2021-07-13 2021-07-13 Outpatient [facility]iga_F [facility]G [id number] [place] 04:49:00 04:49:00 104 [facility] 2021-07-13 2021-07-13 Outpatient Zuniga_F [facility] MMG [id number] [place] 04:49:00 04:49:00 108 [facility] 2021-07-13 2021-07-13 Outpatient Zuniga_F [facility]G [id number] [place] 04:49:00 04:49:00 230 [facility] 2021-07-13 2021-07-13 Outpatient Zuniga_F [facility]G [id number] [place] 04:49:00 04:49:00 221 [facility] 2021-07-13 2021-07-13 George MM [place] - [id number] [place] 00:00:00 00:00:00 Dallas Borrego MD: [address] [place] [address] [address], [place] [address] , Ph. 2021-06-02 2021-06-02 Outpatient [facility]_F [facility] MM [id number] [place] 02:29:00 02:29:00 011 [facility] 2021 2021 Outpatient Zuniga_F MMG MM [id number] [place] 04:09:00 04:09:00 802 [facility] 2021 2021 George MM [place] - [id number] [place] 00:00:00 00:00:00 Dallas Borrego MD: [address] [facility] [address], [place] [address] , Ph. 2021-02-22 2021-02-22 Outpatient INDER WALKER [facility] [id number] [place] 00:00:00 00:00:[address] 2021-01-29 2021-01-29 Outpatient Z[facility]iga_F [facility] [id number] [place] 01:05:00 01:05:00 523 [facility] 2021-01-12 2021-01-12 Outpatient Z[facility]iga_F [facility] [id number] [place] 04:49:00 04:49:00 506 [facility] 2021-01-12 2021-01-12 Outpatient Zuniga_F [facility]G [id number] [place] 04:49:00 04:49:00 507 [facility] 2021-01-12 2021-01-12 George [facility] [place] - [id number] [facility] 00:00:00 00:00:00 Dallas Borrego MD: [address] [place] [address], [place] [address] , Ph. 2020-12-25 2020-12-25 Outpatient Z[facility]iga_F [facility] [...] 04:39:00 417 [facility] 2020-11-21 2020-11-21 George [facility] [place] - [id number] [place] 00:00:00 00:00:00 Dallas Borrego MD: [address] [facility] [address], [place] [address] , Ph. 2020-10-25 2020-10-25 Outpatient Zuniga_F [facility] MMG [id number] [place] 01:02:00 01:02:00 216 [facility] 2020-07-27 2020-07-27 Outpatient Zuniga_F [facility]G [id number] [place] 02:43:00 02:43:00 105 [facility] 2020-07-27 2020-07-27 Outpatient Zuniga_F [facility]G [id number] [place] 02:43:00 02:43:00 111 [facility] 2020-07-27 2020-07-27 Outpatient Z[facility]iga_F [facility] MMG [id number] [place] 02:43:00 02:43:00 118 [facility] 2020-07-27 2020-07-27 Outpatient Zuniga_F MMG MM [id number] [place] 02:43:00 02:43:00 130 da [...] 105 [facility] 2020-07-11 2020-07-11 George [facility] [place] - [id number] [facility] 00:00:00 00:00:00 Dallas Borrego MD: [address] [facility] [address], [place] [address] , Ph. 2020-07-08 2020-07-08 Outpatient Z[facility]iga_F [facility] [id number] [place] 11:19:00 11:19:00 030 [facility] 2020-07-06 2020-07-06 Outpatient Z[facility]iga_F [facility] MMG [id number] [place] 09:51:00 09:51:00 028 [facility] 2020-06-22 2020-06-22 Outpatient [facility]_F [facility]G [id number] [place] 09:47:00 09:47:00 014 [facility] 2020-05-11 2020-05-11 Outpatient [facility]iga_F [facility]G [id number] [place] 02:28:00 02:28:00 911 Medical Group 2020-05-10 2020-05-10 Outpatient Zuniga_F [facility] MMG [id number] [place] 08:37:00 08:37:00 901 Medical Group 2020-05-10 2020-05-10 George [facility] [place] - [id number] [place] 00:00:00 00:00:00 Dallas Borrego MD: [address] [place] [address] , Ph. 2020-05-09 2020-05-09 Outpatient Zuniga_F [facility]G [id number] [place] 11:44:00 11:44:00 831 Medical Group 2020-04-27 2020-04-27 Outpatient INDER WALKER [facility] [id number] [place] 00:00:00 00:00:[address] 2020-04-11 2020-04-11 Outpatient Zuniga_F [facility] MMG [id number] [place] 06:18:00 06:18:00 803 Medical Group 2020-04-11 2020-04-11 George [facility] [place] - [id number] [place] 00:00:00 00:00:00 Dallas Borrego MD: [address] [place] [address] [place] [address] , Ph. 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 2020-02-12 2020-02-12 Outpatient Zuniga_F [facility] MMG [id number] [place] 04:42:00 04:42:00 605 [facility] 2020-02-08 2020-02-08 Outpatient Zuniga_F [facility] [id number] [place] 06:20:00 06:20:00 601 [facility] 2020-02-08 2020-02-08 George [facility] [place] - [id number] [place] 00:00:00 00:00:00 Dallas Borrego Medical MD: [address] [place] [address] , Ph. 2020-02-05 2020-02-05 Outpatient Zuniga_F MMG [...] [id number] [place] 04:53:00 04:53:00 514 [facility] 2020-01-18 2020-01-18 Outpatient Zuniga_F MMG MM [id number] [place] 06:00:00 06:00:00 511 Medical Group 2020-01-12 2020-01-12 Outpatient Zuniga_F [facility] MMG [id number] [place] 11:06:00 11:06:00 505 Medical Group 2020-01-12 2020-01-12 Outpatient Zuniga_F [facility] MMG [id number] [place] 11:06:00 11:06:00 506 [facility] 2020-01-12 2020-01-12 Outpatient Zuniga_F MMG MM [id number] [place] 11:06:00 11:06:00 507 Medical Group 2020-01-12 2020-01-12 Outpatient Zuniga_F [facility] MMG [id number] [place] 11:06:00 11:06:00 509 Medical Group 2020-01-12 2020-01-12 Fede [facility] [place] - [id number] M atag[facility] 00:00:00 00:00:00 Alexandru Sanchez MD: Medical Medica l [address] [facility] [address], [place] [address] , Ph. [phone] 2020-01-11 2020-01-11 Mary Ann [facility] [place] - [id number] M atagor 00:00:00 00:00:00 Merly Toscano Medical Medical SOFTWARE TEAM LEADER: 600 [facility] [address], [place] [address] , Ph. 2020-01-04 2020-01-04 George [facility] [place] - [id number] [place] 00:00:00 00:00:00 Dallas Borrego MD: [address] [place] [address] [address], [place] [address] , Ph. 2019-12-31 2019-12-31 Outpatient Zuniga_F [facility] MMG [id number] [place] 10:35:00 10:35:00 427 da Medical [facility] 2019-12-31 2019-12-31 Outpatient Zuniga_F MMG MMG [id number] [place] 10:35:00 10:35:00 428 da [facility] 2019-12-31 2019-12-31 Outpatient Zuniga_F MMG MMG [id number] [place] 10:35:00 10:35:00 429 [facility] 2019-12-31 2019-12-31 Outpatient Zuniga_F MMG MMG [id number] [place] 10:35:00 10:35:00 430 da Medical [facility] 2019-12-31 2019-12-31 Outpatient Zuniga_F [facility] MMG [id number] [place] 10:35:00 10:35:00 502 [facility] 2019-12-31 2019-12-31 Outpatient Zuniga_F [facility] MMG [id number] [place] 10:35:00 10:35:00 504 [facility] 2019-12-28 2019-12-28 Outpatient Zuniga_F [facility] MMG [id number] [place] 10:23:00 10:23:00 420 da Medical [facility] 2019-11-05 2019-11-05 Outpatient Zuniga_F [facility] MMG [id number] [place] 09:37:00 09:37:00 227 Medical Group 2019-11-04 2019-11-04 Outpatient Zuniga_F [facility] MMG [id number] [place] 03:38:00 03:38:00 226 Medical Group 2019-11-04 2019-11-04 George [facility] [place] - [id number] [place] 00:00:00 00:00:00 Dallas Borrego MD: [address] [place] [address] 201, [place] [address] , Ph. 2019-11-03 2019-11-03 Outpatient Zkaydena_F [facility] [id number] [place] 06:29:00 06:29:00 [facility] Medical [facility] 2019-08-17 2019-08-17 [facility] [place] - [id number] [place] 00:00:00 00:00:00 Dallas Borrego MD: [address] [place] [address], [place] [address] , Ph. 2019-07-15 2019-07-15 George [facility] [place] - [id number] [place] 00:00:00 00:00:00 Dallas Borrego MD: [address] [place] [address] 201, [place] [address] , Ph. 2019-07-02 2019-07-02 George [facility] [place] - [id number] [place] 00:00:00 00:00:00 Dallas Borrego MD: [address] [place] [address] 201, [place] [address] , Ph. 2019-06-08 2019-06-08 George [facility] [place] - [id number] [place] 00:00:00 00:00:00 Dallas Borrego MD: [address] [place] [address] 201, [place] [address] , Ph. 2019-06-02 2019-06-02 George [facility] [place] - [id number] [place] 00:00:00 00:00:00 Dallas Borrego MD: [address] [place] [address] 201, [place] [address] , Ph. 2019-04-14 2019-04-14 George [facility] [place] - [id number] [place] 00:00:00 00:00:00 Dallas Borrego Medical MD: [address] [place] [address], [facility] [address], [place] [address] , Ph. 2019-04-08 2019-04-08 George [facility] [place] - [id number] [place] 00:00:00 00:00:00 Dallas Borrego MD: [address] [place] [address] 201, [place] [address] , Ph. 2019-02-03 2019-02-03 Randell [facility] [place] - [id number] M at[facility]or 00:00:00 00:00:00 Discovery onofre Blum MD: [address] [place] [address] [address], [place] [address] , Ph. 2018-10-30 2018-10-30 George [facility] [place] - [id number] [place] 00:00:00 00:00:00 Dallas Borrego Medical MD: [address] [place] [address] [address], [place] [address] , Ph. Results Test Description Test Time Test Comments Results Result Comments Source Hemoglobin A1c [Mass/volume] in Blood 2021 02:07:00 Test Item Value Reference Range Interpretation Comme nts Hemoglobin A1c [Mass/volume] in Blood (test code = 57512-1) 6.7 % 4.0-6.0 [facility] - Serum [...] Serum or Plasma (test code = 6768-6) [facility] - Serum or [id number] 02:07:00 Test Item Value Reference Range Interpretation Comments cholesterol level (test code = 111 mg/dL 150-200 L cholesterol level) triglycerides level (test code = 66 mg/dL <150 triglycerides level) HDL cholesterol (test code = HDL 62 mg/dL >65 L cholesterol) LDL cholesterol direct (test code = 44 mg/dL <100 LDL cholesterol direct) cholesterol risk ratio (test code = 1.790 cholesterol risk ratio) [facility] W Auto Differential panel - [id number] 03:00:00 Test Item Value Reference Range Interpretation Comments white blood count (test code = 7.5 K/uL 4.0-11.5 white blood count) red blood count (test code = red 2.90 M/uL 3.80-5.20 L blood count) hemoglobin (test code = 8.9 g/dL 10.5-15.7 L hemoglobin) hematocrit (test code = 27.9 % 34.0-50.0 L hematocrit) MCV [Entitic volume] (test code = 96.2 fL 86-100 47338-5) mean corpuscular hemoglobin (test 30.7 pg 26.2-33.4 [...] 44.4-80.1 leukocytes in Blood (test code = 84304-0) Immature granulocytes [#/volume] 0.0 K/uL 0.0-0.03 in Blood (test code = 62650-7) lymphocyte% (test code = 15.9 % 10.0-50.0 lymphocyte%) mono % (test code = mono %) 6.0 % 3.6-12.0 eos % (test code = eos %) 0.8 % 0.0-5.4 Basophils/100 leukocytes in 0.1 % 0.1-1.2 Unspecified specimen (test code = 16012-0) Band form neutrophils [#/volume] 5.73 K/uL 1.56-6.13 in Blood (test code = 00881-2) Lymphocytes [#/volume] in 1.2 K/uL 1.18-3.74 Unspecified specimen by Automated count (test code = 01027-5) mono # (test code = mono #) 0.45 K/uL 0.24-0.86 eos # (test code = eos #) 0.06 K/uL 0.04-0.36 basophil # (test code = basophil 0.01 K/uL 0.01-0.08 #) NRBC% (test code = NRBC%) 1 /100 WBC 0-0.2 H NRBC# (test code = NRBC#) 0 K/uL [facility] metabolic 2000 panel - Serum or [id number] 03:00:00 Test Item Value Reference Range Interpretation [...] = 7.8 mg/dL 8.8-10.2 L calcium level) [facility] W Auto Differential panel - [id number] 03:00:00 Test Item Value Reference Range Interpretation Comments white blood count (test code = 7.5 K/uL 4.0-11.5 white blood count) red blood count (test code = red 2.90 M/uL 3.80-5.20 L blood count) hemoglobin (test code = 8.9 g/dL 10.5-15.7 L hemoglobin) hematocrit (test code = 27.9 % 34.0-50.0 L hematocrit) MCV [Entitic volume] (test code = 96.2 fL 86-100 98537-2) mean corpuscular hemoglobin (test 30.7 pg 26.2-33.4 [...] 44.4-80.1 leukocytes in Blood (test code = 73155-3) Immature granulocytes [#/volume] 0.0 K/uL 0.0-0.03 in Blood (test code = 48129-2) lymphocyte% (test code = 15.9 % 10.0-50.0 lymphocyte%) mono % (test code = mono %) 6.0 % 3.6-12.0 eos % (test code = eos %) 0.8 % 0.0-5.4 Basophils/100 leukocytes in 0.1 % 0.1-1.2 Unspecified specimen (test code = 46867-5) Band form neutrophils [#/volume] 5.73 K/uL 1.56-6.13 in Blood (test code = 86548-6) Lymphocytes [#/volume] in 1.2 K/uL 1.18-3.74 Unspecified specimen by Automated count (test code = 07162-1) mono # (test code = mono #) 0.45 K/uL 0.24-0.86 eos # (test code = eos #) 0.06 K/uL 0.04-0.36 basophil # (test code = basophil 0.01 K/uL 0.01-0.08 #) NRBC% (test code = NRBC%) 1 /100 WBC 0-0.2 H NRBC# (test code = NRBC#) 0 K/uL [facility] metabolic 2000 panel - Serum or Gedwdl1404-99-53 03:00:00 Test Item Value Reference Range Interpretation [...] = 7.8 mg/dL 8.8-10.2 L calcium level) [facility] W Auto Differential panel - Durno2351-01-93 03:00:00 Test Item Value Reference Range Interpretation Comments white blood count (test code = 7.5 K/uL 4.0-11.5 white blood count) red blood count (test code = red 2.90 M/uL 3.80-5.20 L blood count) hemoglobin (test code = 8.9 g/dL 10.5-15.7 L hemoglobin) hematocrit (test code = 27.9 % 34.0-50.0 L hematocrit) MCV [Entitic volume] (test code = 96.2 fL 86-100 56811-3) mean corpuscular hemoglobin (test 30.7 pg 26.2-33.4 [...] 44.4-80.1 leukocytes in Blood (test code = 82338-7) Immature granulocytes [#/volume] 0.0 K/uL 0.0-0.03 in Blood (test code = 78884-5) lymphocyte% (test code = 15.9 % 10.0-50.0 lymphocyte%) mono % (test code = mono %) 6.0 % 3.6-12.0 eos % (test code = eos %) 0.8 % 0.0-5.4 Basophils/100 leukocytes in 0.1 % 0.1-1.2 Unspecified specimen (test code = 05753-6) Band form neutrophils [#/volume] 5.73 K/uL 1.56-6.13 in Blood (test code = 16472-5) Lymphocytes [#/volume] in 1.2 K/uL 1.18-3.74 Unspecified specimen by Automated count (test code = 70073-3) mono # (test code = mono #) 0.45 K/uL 0.24-0.86 eos # (test code = eos #) 0.06 K/uL 0.04-0.36 basophil # (test code = basophil 0.01 K/uL 0.01-0.08 #) NRBC% (test code = NRBC%) 1 /100 WBC 0-0.2 H NRBC# (test code = NRBC#) 0 K/uL [facility] metabolic 2000 panel - Serum or Oghmve1326-23-46 03:00:00 Test Item Value Reference Range Interpretation [...] = 7.8 mg/dL 8.8-10.2 L calcium level) [facility] W Auto Differential panel - Ixqam1653-08-20 12:59:00 Test Item Value Reference Range Interpretation Comments white blood count (test code = 8.7 K/uL 4.0-11.5 white blood count) red blood count (test code = red 3.00 M/uL 3.80-5.20 L blood count) hemoglobin (test code = 9.1 g/dL 10.5-15.7 L hemoglobin) hematocrit (test code = 28.4 % 34.0-50.0 L hematocrit) MCV [Entitic volume] (test code = 94.7 fL 86-100 83653-1) mean corpuscular hemoglobin (test 30.3 pg 26.2-33.4 [...] 44.4-80.1 leukocytes in Blood (test code = 37083-2) Immature granulocytes [#/volume] 0.0 K/uL 0.0-0.03 H in Blood (test code = 49218-4) lymphocyte% (test code = 12.6 % 10.0-50.0 lymphocyte%) mono % (test code = mono %) 6.0 % 3.6-12.0 eos % (test code = eos %) 0.6 % 0.0-5.4 Basophils/100 leukocytes in 0.2 % 0.1-1.2 Unspecified specimen (test code = 46674-5) Band form neutrophils [#/volume] 6.95 K/uL 1.56-6.13 H in Blood (test code = 38802-4) Lymphocytes [#/volume] in 1.1 K/uL 1.18-3.74 L Unspecified specimen by Automated count (test code = 74492-1) mono # (test code = mono #) 0.52 K/uL 0.24-0.86 eos # (test code = eos #) 0.05 K/uL 0.04-0.36 basophil # (test code = basophil 0.02 K/uL 0.01-0.08 #) NRBC% (test code = NRBC%) 1 /100 WBC 0-0.2 H NRBC# (test code = NRBC#) 0 K/uL [facility] metabolic 2000 panel - Serum or Xtiiie1769-17-74 12:59:00 Test Item Value Reference Range Interpretation [...] = 7.8 mg/dL 8.8-10.2 L calcium level) [facility] W Auto Differential panel - Lieer4654-21-11 12:59:00 Test Item Value Reference Range Interpretation Comments white blood count (test code = 8.7 K/uL 4.0-11.5 white blood count) red blood count (test code = red 3.00 M/uL 3.80-5.20 L blood count) hemoglobin (test code = 9.1 g/dL 10.5-15.7 L hemoglobin) hematocrit (test code = 28.4 % 34.0-50.0 L hematocrit) MCV [Entitic volume] (test code = 94.7 fL 86-100 14533-6) mean corpuscular hemoglobin (test 30.3 pg 26.2-33.4 [...] 44.4-80.1 leukocytes in Blood (test code = 47154-4) Immature granulocytes [#/volume] 0.0 K/uL 0.0-0.03 H in Blood (test code = 96831-6) lymphocyte% (test code = 12.6 % 10.0-50.0 lymphocyte%) mono % (test code = mono %) 6.0 % 3.6-12.0 eos % (test code = eos %) 0.6 % 0.0-5.4 Basophils/100 leukocytes in 0.2 % 0.1-1.2 Unspecified specimen (test code = 72173-2) Band form neutrophils [#/volume] 6.95 K/uL 1.56-6.13 H in Blood (test code = 83446-2) Lymphocytes [#/volume] in 1.1 K/uL 1.18-3.74 L Unspecified specimen by Automated count (test code = 60575-9) mono # (test code = mono #) 0.52 K/uL 0.24-0.86 eos # (test code = eos #) 0.05 K/uL 0.04-0.36 basophil # (test code = basophil 0.02 K/uL 0.01-0.08 #) NRBC% (test code = NRBC%) 1 /100 WBC 0-0.2 H NRBC# (test code = NRBC#) 0 K/uL [facility] - Serum or Lpndit4112-83-32 12:59:00 Test Item Value Reference Range Interpretation [...] = 7.8 mg/dL 8.8-10.2 L calcium level) [facility] W Auto Differential panel - Ralya9425-63-17 12:59:00 Test Item Value Reference Range Interpretation Comments white blood count (test code = 8.7 K/uL 4.0-11.5 white blood count) red blood count (test code = red 3.00 M/uL 3.80-5.20 L blood count) hemoglobin (test code = 9.1 g/dL 10.5-15.7 L hemoglobin) hematocrit (test code = 28.4 % 34.0-50.0 L hematocrit) MCV [Entitic volume] (test code = 94.7 fL 86-100 22871-1) mean corpuscular hemoglobin (test 30.3 pg 26.2-33.4 [...] 44.4-80.1 leukocytes in Blood (test code = 81774-7) Immature granulocytes [#/volume] 0.0 K/uL 0.0-0.03 H in Blood (test code = 32054-7) lymphocyte% (test code = 12.6 % 10.0-50.0 lymphocyte%) mono % (test code = mono %) 6.0 % 3.6-12.0 eos % (test code = eos %) 0.6 % 0.0-5.4 Basophils/100 leukocytes in 0.2 % 0.1-1.2 Unspecified specimen (test code = 13556-6) Band form neutrophils [#/volume] 6.95 K/uL 1.56-6.13 H in Blood (test code = 92360-2) Lymphocytes [#/volume] in 1.1 K/uL 1.18-3.74 L Unspecified specimen by Automated count (test code = 64764-3) mono # (test code = mono #) 0.52 K/uL 0.24-0.86 eos # (test code = eos #) 0.05 K/uL 0.04-0.36 basophil # (test code = basophil 0.02 K/uL 0.01-0.08 #) NRBC% (test code = NRBC%) 1 /100 WBC 0-0.2 H NRBC# (test code = NRBC#) 0 K/uL [facility] metabolic 2000 panel - Serum or Aaygyg2919-57-52 12:59:00 Test Item Value Reference Range Interpretation [...] = 7.8 mg/dL 8.8-10.2 L calcium level) [facility] Brkrg2222-64-68 10:15:00 Test Item Value Reference Range Interpretation Comments hemoglobin (test code = hemoglobin) 9.4 g/dL 10.5-15.7 hematocrit (test code = hematocrit) 29.4 % 34.0-50.0 [facility] - Yddxb2432-70-57 10:15:00 Test Item Value Reference Range Interpretation Comments hemoglobin (test code = hemoglobin) 9.4 g/dL 10.5-15.7 hematocrit (test code = hematocrit) 29.4 % 34.0-50.0 [facility] - Gsyyr8749-18-13 10:15:00 Test Item Value Reference Range Interpretation Comments hemoglobin (test code = hemoglobin) 9.4 g/dL 10.5-15.7 hematocrit (test code = hematocrit) 29.4 % 34.0-50.0 [facility] - Nmikq2050-44-77 01:45:00 Test Item Value Reference Range Interpretation Comments white blood count (test code = 8.4 K/uL 4.0-11.5 white blood count) red blood count (test code = red 2.27 M/uL 3.80-5.20 L blood count) hemoglobin (test code = 7.0 g/dL 10.5-15.7 L hemoglobin) hematocrit (test code = 21.8 % 34.0-50.0 L hematocrit) MCV [Entitic volume] (test code = 96.0 fL 86-100 97604-1) mean corpuscular hemoglobin (test 30.8 pg 26.2-33.4 [...] 44.4-80.1 leukocytes in Blood (test code = 46497-0) Immature granulocytes [#/volume] 0.0 K/uL 0.0-0.03 H in Blood (test code = 12161-0) lymphocyte% (test code = 14.9 % 10.0-50.0 lymphocyte%) mono % (test code = mono %) 5.5 % 3.6-12.0 eos % (test code = eos %) 0.7 % 0.0-5.4 Basophils/100 leukocytes in 0.1 % 0.1-1.2 Unspecified specimen (test code = 39470-0) Band form neutrophils [#/volume] 6.55 K/uL 1.56-6.13 H in Blood (test code = 30277-0) Lymphocytes [#/volume] in 1.3 K/uL 1.18-3.74 Unspecified specimen by Automated count (test code = 21524-1) mono # (test code = mono #) 0.46 K/uL 0.24-0.86 eos # (test code = eos #) 0.06 K/uL 0.04-0.36 basophil # (test code = basophil 0.01 K/uL 0.01-0.08 #) NRBC% (test code = NRBC%) 3 /100 WBC 0-0.2 H NRBC# (test code = NRBC#) 0 K/uL [facility] HospitalDifferential [facility], method unspecified - Pszrg8745-42-62 01:45:00NeutrophilsBandLymphocyteMonocyteEosinophilPlatelet EstimateMatagoWest [facility] CenterBasic [facility] 2000 panel - Serum or Oxbdoc0243-52-78 01:45:00 Test Item Value Reference Range Interpretation [...] = 7.9 mg/dL 8.8-10.2 L calcium level) [facility] W Auto Differential panel - Mjswt9701-19-63 01:45:00 Test Item Value Reference Range Interpretation Comments white blood count (test code = 8.4 K/uL 4.0-11.5 white blood count) red blood count (test code = red 2.27 M/uL 3.80-5.20 L blood count) hemoglobin (test code = 7.0 g/dL 10.5-15.7 L hemoglobin) hematocrit (test code = 21.8 % 34.0-50.0 L hematocrit) MCV [Entitic volume] (test code = 96.0 fL 86-100 24977-8) mean corpuscular hemoglobin (test 30.8 pg 26.2-33.4 [...] 44.4-80.1 leukocytes in Blood (test code = 86545-9) Immature granulocytes [#/volume] 0.0 K/uL 0.0-0.03 H in Blood (test code = 06952-5) lymphocyte% (test code = 14.9 % 10.0-50.0 lymphocyte%) mono % (test code = mono %) 5.5 % 3.6-12.0 eos % (test code = eos %) 0.7 % 0.0-5.4 Basophils/100 leukocytes in 0.1 % 0.1-1.2 Unspecified specimen (test code = 51315-3) Band form neutrophils [#/volume] 6.55 K/uL 1.56-6.13 H in Blood (test code = 67466-6) Lymphocytes [#/volume] in 1.3 K/uL 1.18-3.74 Unspecified specimen by Automated count (test code = 43765-1) mono # (test code = mono #) 0.46 K/uL 0.24-0.86 eos # (test code = eos #) 0.06 K/uL 0.04-0.36 basophil # (test code = basophil 0.01 K/uL 0.01-0.08 #) NRBC% (test code = NRBC%) 3 /100 WBC 0-0.2 H NRBC# (test code = NRBC#) 0 K/uL [facility] HospitalDifferent[facility], method unspecified - Judtu7088-71-72 01:45:00NeutrophilsBandLymphocyteMonocyteEosinophilPlatelet EstimateMataThe [facility]idianBasic metabolic 2000 panel - Serum or Qbcyxo1229-17-85 01:45:00 Test Item Value Reference Range Interpretation [...] = 7.9 mg/dL 8.8-10.2 L calcium level) [facility] W Auto Differential panel - [id number] 01:45:00 Test Item Value Reference Range Interpretation Comments white blood count (test code = 8.4 K/uL 4.0-11.5 white blood count) red blood count (test code = red 2.27 M/uL 3.80-5.20 L blood count) hemoglobin (test code = 7.0 g/dL 10.5-15.7 L hemoglobin) hematocrit (test code = 21.8 % 34.0-50.0 L hematocrit) MCV [Entitic volume] (test code = 96.0 fL 86-100 13846-5) mean corpuscular hemoglobin (test 30.8 pg 26.2-33.4 [...] 44.4-80.1 leukocytes in Blood (test code = 47329-0) Immature granulocytes [#/volume] 0.0 K/uL 0.0-0.03 H in Blood (test code = 06664-4) lymphocyte% (test code = 14.9 % 10.0-50.0 lymphocyte%) mono % (test code = mono %) 5.5 % 3.6-12.0 eos % (test code = eos %) 0.7 % 0.0-5.4 Basophils/100 leukocytes in 0.1 % 0.1-1.2 Unspecified specimen (test code = 23759-7) Band form neutrophils [#/volume] 6.55 K/uL 1.56-6.13 H in Blood (test code = 03597-4) Lymphocytes [#/volume] in 1.3 K/uL 1.18-3.74 Unspecified specimen by Automated count (test code = 56821-8) mono # (test code = mono #) 0.46 K/uL 0.24-0.86 eos # (test code = eos #) 0.06 K/uL 0.04-0.36 basophil # (test code = basophil 0.01 K/uL 0.01-0.08 #) NRBC% (test code = NRBC%) 3 /100 WBC 0-0.2 H NRBC# (test code = NRBC#) 0 K/uL [facility] HospitalDifferent[facility], method unspecified - Ilhmt9156-84-05 01:45:00NeutrophilsBandLymphocyteMonocyteEosinophilPlatelet EstimateMataThe [facility]idianBasic metabolic 2000 panel - Serum or Etviub6468-06-23 01:45:00 Test Item Value Reference Range Interpretation [...] = 7.9 mg/dL 8.8-10.2 L calcium level) [facility] Center[facility] Crossmatch [facility] - Tpuzk6218-13-93 13:40:00 Test Item Value Reference Range Interpretation Comments Blood type and Crossmatch unit number: panel - Blood (test code [id number] = 66753-5) [facility] Uzwhzjbn0683-42-27 13:40:[facility] [place] [facility] 13:40:00Results[facility] Xrovhaze4476-18-37 13:40:00Results [facility] Nfwhumce8794-78-14 13:40:00Results[facility] [place] [facility] 13:40:00[facility] Odfosdwf1388-15-04 13:40:00Results [facility] Rxyeibaf6891-81-81 13:40:00[facility] [place] [facility] 13:40:00[facility] Hfzwpeut4542-85-14 13:40:00Results [facility] Xiepocff4993-32-57 13:40:00[facility] [place] [facility]15 13:40:00[facility] Hvzdoytd6364-44-42 13:40:00Results [facility] Kagseguq1344-16-55 13:40:00[facility] [place] [facility]-15 13:40:00[facility] Zrrzwdma0514-09-04 13:40:00Results [facility] Rupqxqcz3853-74-97 13:40:00[facility] [place] [facility] 13:40:00[facility] Arfkqizq2344-98-16 13:40:00Results [facility] Qofijuex2016-57-01 13:40:00[facility] 2020-01-15 13:40:00[facility] Geexghoj8796-58-50 13:40:00Results [facility] Nfedwrde2167-24-65 13:40:00[facility] 2020-01-15 13:40:00[facility] Xfvkujib4416-55-23 13:40:00Results [facility] Dfwynhqx8319-87-84 13:40:00[facility] 2020-01-15 13:40:00[facility] Ssuadmxh0601-26-98 13:40:00Results [facility] GroupBlood type and Crossmatch panel - Ebawh3880-71-93 13:40:00 Test Item Value Reference Range Interpretation Comments Blood type and Crossmatch unit number: panel - Blood (test code [id number] = 40863-1) [facility] Lmcdrlal2343-12-05 13:40:00[facility] 2020-01-15 13:40:00[facility] Ujnssdcg2967-49-36 13:40:00Results [facility] Palvguyp9598-00-11 13:40:00[facility] 2020-01-15 13:40:00[facility] Cowtglph9330-77-21 13:40:00Results [facility] Bmoutvry0995-45-23 13:40:00[facility] 2020-01-15 13:40:00[facility] Fdynkinb4875-08-71 13:40:00Results [facility] Hfuvvaqv2140-92-87 13:40:00[facility] 2020-01-15 13:40:00[facility] Xatsqjdz9845-21-32 13:40:00Results [facility] Xbqbtxcp0632-13-04 13:40:00[facility] 2020-01-15 13:40:00[facility] Tsgnurfk2696-36-96 13:40:00Results [facility] Wtaqxhvt3730-90-48 13:40:00[facility] 2020-01-15 13:40:00[facility] Kqnakrlu2059-00-48 13:40:00Results [facility] Jnznnusp9991-64-60 13:40:00[facility] [place] 13:40:00[facility] Oametatl4194-49-87 13:40:00Results [facility] Dxtqgpmg1135-32-90 13:40:00[facility] [place] [facility]-15 13:40:00[facility] Toqrorwi9005-08-94 13:40:00Results [facility] Nbnicods7853-39-67 13:40:00[facility] [place] [facility]-15 13:40:00Results[facility] Drjnysmr3380-30-96 13:40:00Results [facility] - Yccez0288-28-00 13:40:00 Test Item Value Reference Range Interpretation Comments Blood type and Crossmatch unit number: panel - Blood (test code [id number] = 54924-5) [facility] Qbuweysj1006-30-32 13:40:00[facility] [place] [facility] 13:40:00Results[facility] Bcxspsfh6931-77-97 13:40:00Results [facility] Ybcjwkfj9222-30-76 13:40:00[facility] 2020-01-15 13:40:00[facility] Jonuhbsp6987-42-73 13:40:00Results [facility] Ubyaohfj0129-26-89 13:40:00[facility] 2020-01-15 13:40:00Results[facility] Kmufhwpo5626-58-00 13:40:00Results [facility] Tetvwbda3584-58-10 13:40:00[facility] 2020-01-15 13:40:00[facility] Rtpsvxcj7598-98-00 13:40:00Results [facility] Gkuxscra9699-03-42 13:40:00[facility] 2020-01-15 13:40:00[facility] Odgwwcvg0022-96-38 13:40:00Results [facility] Fibovdgv7105-06-17 13:40:00[facility] 2020-01-15 13:40:00[facility] Djhqangy0143-78-53 13:40:00Results [facility] Ssuppifi4223-04-20 13:40:00Results[facility] 2020-01-15 13:40:00Results[facility] Setqedco9389-48-20 13:40:00Results [facility] Zmyrvrzy7745-16-51 13:40:00[facility] 2020-01-15 13:40:00[facility] Qiblvpjh0146-57-64 13:40:00Results [facility] Dhhsaihz0925-13-00 13:40:00[facility] 2020-01-15 13:40:00Results[facility] Ydwhewax6606-04-05 13:40:00Results [facility] GroupHemoglobin and Hematocrit panel - Xpftn9335-90-39 09:48:00 Test Item Value Reference Range Interpretation Comments hemoglobin (test code = hemoglobin) 7.6 g/dL 10.5-15.7 hematocrit (test code = hematocrit) 23.5 % 34.0-50.0 [facility] - Emuez6642-31-66 09:48:00 Test Item Value Reference Range Interpretation Comments hemoglobin (test code = hemoglobin) 7.6 g/dL 10.5-15.7 hematocrit (test code = hematocrit) 23.5 % 34.0-50.0 [facility] - Bsbhd7826-94-78 09:48:00 Test Item Value Reference Range Interpretation Comments hemoglobin (test code = hemoglobin) 7.6 g/dL 10.5-15.7 hematocrit (test code = hematocrit) 23.5 % 34.0-50.0 [facility]PT/QNS3269-44-54 08:07:00 Test Item Value Reference Range Interpretation Comments prothrombin time (test code = 10.4 seconds 10.3-12.3 prothrombin time) INR in Blood by Coagulation 0.96 assay (test code = 08990-3) [facility]partial thromb[facility]in ment9588-88-79 08:07:00 Test Item Value Reference Range Interpretation Comments INR in Blood by Coagulation 22.0 seconds 22.5-37.0 L assay (test code = 47933-4) [facility]Blood [facility] and Indirect antibody screen panel - Blood 2020-01-15 08:07:00 Test Item Value Reference Range Interpretation Comments Rh [Type] in Blood (test code = neg 89797-8) ABO and Rh group panel - Blood O negative (test code = 85409-7) [facility]PT/XDE4736-95-77 08:07:00 Test Item Value Reference Range Interpretation Comments prothrombin time (test code = 10.4 seconds 10.3-12.3 prothrombin time) INR in Blood by Coagulation 0.96 assay (test code = 69077-4) [facility] tjxe6136-02-71 08:07:00 Test Item Value Reference Range Interpretation Comments INR in Blood by Coagulation 22.0 seconds 22.5-37.0 L assay (test code = 17915-0) [facility]Blood [facility] Indirect antibody screen panel - Blood 2020-01-15 08:07:00 Test Item Value Reference Range Interpretation Comments Rh [Type] in Blood (test code = neg 79475-5) ABO and Rh group panel - Blood O negative (test code = 40726-6) [facility]PT/XCQ7464-72-65 08:07:00 Test Item Value Reference Range Interpretation Comments prothrombin time (test code = 10.4 seconds 10.3-12.3 prothrombin time) INR in Blood by Coagulation 0.96 assay (test code = 83757-7) [facility] gbum8194-58-13 08:07:00 Test Item Value Reference Range Interpretation Comments INR in Blood by Coagulation 22.0 seconds 22.5-37.0 L assay (test code = 80185-5) [facility] Indirect [facility] screen panel - Blood 2020-01-15 08:07:00 Test Item Value Reference Range Interpretation Comments Rh [Type] in Blood (test code = neg 75828-8) ABO and Rh group panel - Blood O negative (test code = 84884-0) [facility] HospitalCom[facility] 2000 panel - Serum [...] Serum or Plasma (test code = 6768-6) [facility] HospitalCreatine kinase [Enzymatic activity/volume] in Serum or Bdvozs5539-97-88 07:32:00 Test Item Value Reference Range Interpretation Comments creatine kinase (test code = creatine 901 U/L 20-180 H kinase) [facility] HospitalNatriuretic peptide.B prohormone N-Terminal [Mass/volume] in Serum or Qhuscg9206-67-97 07:32:00 Test Item Value Reference Range Interpretation Comments N-term pro natriuretic peptide (test 91 pg/mL 0-125 code = N-term pro natriuretic peptide) [facility] HospitalTroponin I.cardiac [Mass/volume] in Ynbes8352-80-48 07:32:00 Test Item Value Reference Range Interpretation Comments cardiac troponin I (test code = cardiac <0.30 0.0-0.5 troponin I) [facility] HospitalCreatine kinase.MB [Mass/volume] in Serum or Plasma 2020-01-15 07:32:00 Test Item Value Reference Range Interpretation Comments Creatine kinase.MB [Mass/volume] 25.1 NG/mL 0.0-3.6 H in Serum or Plasma by Immunoassay (test code = 52822-4) [facility] HospitalCom[facility] 2000 panel - Serum [...] Serum or Plasma (test code = 6768-6) [facility]Creat[facility] kinase [Enzymatic activity/volume] in Serum or Qhxjjx7891-12-41 07:32:00 Test Item Value Reference Range Interpretation Comments creatine kinase (test code = creatine 901 U/L 20-180 H kinase) [facility] GroupNatriuretic peptide.B prohormone N-Terminal [Mass/volume] in Serum or Hmpcwp3723-51-71 07:32:00 Test Item Value Reference Range Interpretation Comments N-term pro natriuretic peptide (test 91 pg/mL 0-125 code = N-term pro natriuretic peptide) [facility] HospitalTroponin I.cardiac [Mass/volume] in Hsurb1900-04-33 07:32:00 Test Item Value Reference Range Interpretation Comments cardiac troponin I (test code = cardiac <0.30 0.0-0.5 troponin I) [facility] HospitalCreatine kinase.MB [Mass/volume] in Serum or Plasma 2020-01-15 07:32:00 Test Item Value Reference Range Interpretation Comments Creatine kinase.MB [Mass/volume] 25.1 NG/mL 0.0-3.6 H in Serum or Plasma by Immunoassay (test code = 92815-7) [facility] W Auto Differential panel - Enfwp9718-43-68 07:32:00 Test Item Value Reference Range Interpretation Comments white blood count (test code = 8.5 K/uL 4.0-11.5 white blood count) red blood count (test code = red 1.60 M/uL 3.80-5.20 L blood count) hemoglobin (test code = 5.1 g/dL 10.5-15.7 hemoglobin) hematocrit (test code = 16.9 % 34.0-50.0 hematocrit) MCV [Entitic volume] (test code = 105.6 fL 86-100 H 68188-2) mean corpuscular hemoglobin (test 31.9 pg 26.2-33.4 [...] H leukocytes in Blood (test code = 72141-7) Immature granulocytes [#/volume] 0.0 K/uL 0.0-0.03 H in Blood (test code = 65162-0) lymphocyte% (test code = 11.4 % 10.0-50.0 lymphocyte%) mono % (test code = mono %) 5.4 % 3.6-12.0 eos % (test code = eos %) 0.5 % 0.0-5.4 Basophils/100 leukocytes in 0.1 % 0.1-1.2 Unspecified specimen (test code = 18287-7) Band form neutrophils [#/volume] 6.97 K/uL 1.56-6.13 H in Blood (test code = 22797-0) Lymphocytes [#/volume] in 1.0 K/uL 1.18-3.74 L Unspecified specimen by Automated count (test code = 82022-0) mono # (test code = mono #) 0.46 K/uL 0.24-0.86 eos # (test code = eos #) 0.04 K/uL 0.04-0.36 basophil # (test code = basophil 0.01 K/uL 0.01-0.08 #) NRBC% (test code = NRBC%) 2 /100 WBC 0-0.2 H NRBC# (test code = NRBC#) 0 K/uL [facility]Different[facility], method unspecified - [id number] 07:32:00NeutrophilsBandLymphocyteMonocyteEosinophilBasophilPlatelet EstimateDifferential comment-[facility] HospitalComprehensive [facility] 2000 panel - Serum or [id number] 07:32:00 Test Item Value Reference Range Interpretation [...] Serum or Plasma (test code = 6768-6) [facility] GroupCreatine kinase [Enzymatic activity/volume] in Serum or [id number] 07:32:00 Test Item Value Reference Range Interpretation Comments creatine kinase (test code = creatine 901 U/L 20-180 H kinase) [facility] HospitalNatriuretic peptide.B prohormone N-Terminal [Mass/volume] in Serum or [id number] 07:32:00 Test Item Value Reference Range Interpretation Comments N-term pro natriuretic peptide (test 91 pg/mL 0-125 code = N-term pro natriuretic peptide) [facility] HospitalTroponin I.cardiac [Mass/volume] in [id number] 07:32:00 Test Item Value Reference Range Interpretation Comments cardiac troponin I (test code = cardiac <0.30 0.0-0.5 troponin I) [facility] HospitalCreatine kinase.MB [Mass/volume] in Serum or Plasma 2020-01-15 07:32:00 Test Item Value Reference Range Interpretation Comments Creatine kinase.MB [Mass/volume] 25.1 NG/mL 0.0-3.6 H in Serum or Plasma by Immunoassay (test code = 67155-2) [facility] HospitalUrinalysis complete panel - [id number] 04:45:00 Test Item Value Reference Range Interpretation Comments Color of Urine by Auto (test colorless code = 95317-2) Appearance of Urine (test code clear clear = 5767-9) Glucose [Presence] in Urine by negative negative Automated test strip (test code = 93873-5) Bilirubin.total [Mass/volume] negative negative in Urine (test code = 1978-6) Ketones [Mass/volume] in Urine negative negative by Automated test strip (test code = 33203-7) Specific gravity of Urine by 1.008 1.003-1.030 Automated test strip (test code = 86994-1) blood urine (test code = blood negative negative urine) pH of Urine (test code = 5.500 5-9 2756-5) protein urine (UA) (test code = negative negative protein urine (UA)) Urobilinogen [Presence] in normal 0.2-1.0 Urine (test code = 26301-7) Nitrite [Presence] in Urine by negative negative Test strip (test code = 5802-4) Leukocyte esterase [Presence] negative negative in Urine by Automated test strip (test code = 82279-0) Erythrocytes [#/volume] in <1 0-5 Urine by Automated count (test code = 798-9) Leukocytes [#/area] in Urine <1 0-5 sediment by Automated count (test code = 45738-8) Epithelial cells [Presence] in <1 0-5 Urine sediment by Light microscopy (test code = 55681-0) Bacteria identified in Urine by none detected none detect Culture (test code = 630-4) Casts [#/area] in Urine =2-5 none detect sediment by Automated count (test code = 14089-3) urine culture added? (test code no = urine culture added?) [facility] HospitalUrinal[facility] complete [facility] - [id number] 04:45:00 Test Item Value Reference Range Interpretation Comments Color of Urine by Auto (test colorless code = 65365-5) Appearance of Urine (test code clear clear = 5767-9) Glucose [Presence] in Urine by negative negative Automated test strip (test code = 54392-2) Bilirubin.total [Mass/volume] negative negative in Urine (test code = 1978-02) Ketones [Mass/volume] in Urine negative negative by Automated test strip (test code = 28922-6) Specific gravity of Urine by 1.008 1.003-1.030 Automated test strip (test code = 26880-3) blood urine (test code = blood negative negative urine) pH of Urine (test code = 5.500 5-9 2756-5) protein urine (UA) (test code = negative negative protein urine (UA)) Urobilinogen [Presence] in normal 0.2-1.0 Urine (test code = 25123-3) Nitrite [Presence] in Urine by negative negative Test strip (test code = 5802-4) Leukocyte esterase [Presence] negative negative in Urine by Automated test strip (test code = 63774-4) Erythrocytes [#/volume] in <1 0-5 Urine by Automated count (test code = 798-9) Leukocytes [#/area] in Urine <1 0-5 sediment by Automated count (test code = 65153-0) Epithelial cells [Presence] in <1 0-5 Urine sediment by Light microscopy (test code = 39299-1) Bacteria identified in Urine by none detected none detect Culture (test code = 630-4) Casts [#/area] in Urine =2-5 none detect sediment by Automated count (test code = 12574-5) urine culture added? (test code no = urine culture added?) [facility] GroupUrinalysis complete panel - [id number] 04:45:00 Test Item Value Reference Range Interpretation Comments Color of Urine by Auto (test colorless code = 61314-6) Appearance of Urine (test code clear clear = 5767-9) Glucose [Presence] in Urine by negative negative Automated test strip (test code = 77679-0) Bilirubin.total [Mass/volume] negative negative in Urine (test code = 1978-02) Ketones [Mass/volume] in Urine negative negative by Automated test strip (test code = 40357-4) Specific gravity of Urine by 1.008 1.003-1.030 Automated test strip (test code = 38595-7) blood urine (test code = blood negative negative urine) pH of Urine (test code = 5.500 5-9 2756-5) protein urine (UA) (test code = negative negative protein urine (UA)) Urobilinogen [Presence] in normal 0.2-1.0 Urine (test code = 29269-2) Nitrite [Presence] in Urine by negative negative Test strip (test code = 5802-4) Leukocyte esterase [Presence] negative negative in Urine by Automated test strip (test code = 21382-1) Erythrocytes [#/volume] in <1 0-5 Urine by Automated count (test code = 798-9) Leukocytes [#/area] in Urine <1 0-5 sediment by Automated count (test code = 03670-2) Epithelial cells [Presence] in <1 0-5 Urine sediment by Light microscopy (test code = 59544-7) Bacteria identified in Urine by none detected none detect Culture (test code = 630-4) Casts [#/area] in Urine =2-5 none detect sediment by Automated count (test code = 51680-0) urine culture added? (test code no = urine culture added?) [facility] W Auto Differential panel - [id number] 09:37:00 Test Item Value Reference Range Interpretation Comments white blood count (test code = 6.7 K/uL 4.0-11.5 white blood count) red blood count (test code = red 2.27 M/uL 3.80-5.20 L blood count) hemoglobin (test code = 7.2 g/dL 10.5-15.7 hemoglobin) hematocrit (test code = 23.1 % 34.0-50.0 hematocrit) MCV [Entitic volume] (test code = 101.8 fL 86-100 H 91205-5) mean corpuscular hemoglobin (test 31.7 pg 26.2-33.4 [...] 44.4-80.1 leukocytes in Blood (test code = 41562-2) Immature granulocytes [#/volume] 0.0 K/uL 0.0-0.03 in Blood (test code = 90197-5) lymphocyte% (test code = 19.0 % 10.0-50.0 lymphocyte%) mono % (test code = mono %) 5.2 % 3.6-12.0 eos % (test code = eos %) 0.4 % 0.0-5.4 Basophils/100 leukocytes in 0.3 % 0.1-1.2 Unspecified specimen (test code = 62043-1) Band form neutrophils [#/volume] 4.98 K/uL 1.56-6.13 in Blood (test code = 43674-7) Lymphocytes [#/volume] in 1.3 K/uL 1.18-3.74 Unspecified specimen by Automated count (test code = 74596-8) mono # (test code = mono #) 0.35 K/uL 0.24-0.86 eos # (test code = eos #) 0.03 K/uL 0.04-0.36 L basophil # (test code = basophil 0.02 K/uL 0.01-0.08 #) NRBC% (test code = NRBC%) 1 /100 WBC 0-0.2 H NRBC# (test code = NRBC#) 0 K/uL [facility] W Auto Differential panel - [id number] 09:37:00 Test Item Value Reference Range Interpretation Comments white blood count (test code = 6.7 K/uL 4.0-11.5 white blood count) red blood count (test code = red 2.27 M/uL 3.80-5.20 L blood count) hemoglobin (test code = 7.2 g/dL 10.5-15.7 hemoglobin) hematocrit (test code = 23.1 % 34.0-50.0 hematocrit) MCV [Entitic volume] (test code = 101.8 fL 86-100 H 61648-7) mean corpuscular hemoglobin (test 31.7 pg 26.2-33.4 [...] 44.4-80.1 leukocytes in Blood (test code = 24563-5) Immature granulocytes [#/volume] 0.0 K/uL 0.0-0.03 in Blood (test code = 38167-9) lymphocyte% (test code = 19.0 % 10.0-50.0 lymphocyte%) mono % (test code = mono %) 5.2 % 3.6-12.0 eos % (test code = eos %) 0.4 % 0.0-5.4 Basophils/100 leukocytes in 0.3 % 0.1-1.2 Unspecified specimen (test code = 16871-0) Band form neutrophils [#/volume] 4.98 K/uL 1.56-6.13 in Blood (test code = 18297-6) Lymphocytes [#/volume] in 1.3 K/uL 1.18-3.74 Unspecified specimen by Automated count (test code = 72941-5) mono # (test code = mono #) 0.35 K/uL 0.24-0.86 eos # (test code = eos #) 0.03 K/uL 0.04-0.36 L basophil # (test code = basophil 0.02 K/uL 0.01-0.08 #) NRBC% (test code = NRBC%) 1 /100 WBC 0-0.2 H NRBC# (test code = NRBC#) 0 K/uL [facility] W Auto Differential panel - [id number] 09:37:00 Test Item Value Reference Range Interpretation Comments white blood count (test code = 6.7 K/uL 4.0-11.5 white blood count) red blood count (test code = red 2.27 M/uL 3.80-5.20 L blood count) hemoglobin (test code = 7.2 g/dL 10.5-15.7 hemoglobin) hematocrit (test code = 23.1 % 34.0-50.0 hematocrit) MCV [Entitic volume] (test code = 101.8 fL 86-100 H 59224-7) mean corpuscular hemoglobin (test 31.7 pg 26.2-33.4 [...] 44.4-80.1 leukocytes in Blood (test code = 59153-0) Immature granulocytes [#/volume] 0.0 K/uL 0.0-0.03 in Blood (test code = 86904-5) lymphocyte% (test code = 19.0 % 10.0-50.0 lymphocyte%) mono % (test code = mono %) 5.2 % 3.6-12.0 eos % (test code = eos %) 0.4 % 0.0-5.4 Basophils/100 leukocytes in 0.3 % 0.1-1.2 Unspecified specimen (test code = 18838-3) Band form neutrophils [#/volume] 4.98 K/uL 1.56-6.13 in Blood (test code = 24201-5) Lymphocytes [#/volume] in 1.3 K/uL 1.18-3.74 Unspecified specimen by Automated count (test code = 19715-3) mono # (test code = mono #) 0.35 K/uL 0.24-0.86 eos # (test code = eos #) 0.03 K/uL 0.04-0.36 L basophil # (test code = basophil 0.02 K/uL 0.01-0.08 #) NRBC% (test code = NRBC%) 1 /100 WBC 0-0.2 H NRBC# (test code = NRBC#) 0 K/uL [facility]Creat[facility] [Enzymatic activity/volume] in Serum or [id number] 05:20:00 Test Item Value Reference Range Interpretation Comments creatine kinase (test code = creatine 189 U/L 20-180 H kinase) [facility] HospitalTroponin I.cardiac [Mass/volume] in [id number] 05:20:00 Test Item Value Reference Range Interpretation Comments cardiac troponin I (test code = cardiac <0.30 0.0-0.5 troponin I) [facility] HospitalCreatine kinase.MB [Mass/volume] in Serum or Plasma 2019-06-26 05:20:00 Test Item Value Reference Range Interpretation Comments mass creatinine kinase-mb (test 2.6 NG/mL 0.0-3.6 code = mass creatinine kinase-mb) [facility] W Auto Differential panel - [id number] 02:50:00 Test Item Value Reference Range Interpretation Comments white blood count (test code = 4.8 K/uL 4.0-11.5 white blood count) red blood count (test code = red 3.44 M/uL 3.80-5.20 L blood count) hemoglobin (test code = 11.0 g/dL 10.5-15.7 hemoglobin) hematocrit (test code = 34.4 % 34.0-50.0 hematocrit) Erythrocyte mean corpuscular 100.0 fL 86-100 volume [Entitic volume] (test code = 52542-2) mean corpuscular hemoglobin (test 32.0 pg 26.2-33.4 [...] 44.4-80.1 leukocytes in Blood (test code = 23747-4) Granulocytes Immature [#/volume] 0.0 K/uL 0.0-0.03 in Blood (test code = 03593-2) lymphocyte% (test code = 19.7 % 10.0-50.0 lymphocyte%) mono % (test code = mono %) 9.5 % 3.6-12.0 eos % (test code = eos %) 1.7 % 0.0-5.4 Basophils/100 leukocytes in 0.2 % 0.1-1.2 Unspecified specimen (test code = 69536-1) Neutrophils.band form [#/volume] 3.32 K/uL 1.56-6.13 in Blood (test code = 53406-7) Lymphocytes [#/volume] in 1.0 K/uL 1.18-3.74 L Unspecified specimen by Automated count (test code = 71636-8) mono # (test code = mono #) 0.46 K/uL 0.24-0.86 eos # (test code = eos #) 0.08 K/uL 0.04-0.36 basophil # (test code = basophil 0.01 K/uL 0.01-0.08 #) NRBC% (test code = NRBC%) 0 /100 WBC 0-0.2 NRBC# (test code = NRBC#) 0 K/uL [facility]different[facility], [id number] 02:50:00 NeutrophilsBandLymphocyteAtypical LymphMonocyteEosinophilBasophilMetamyelocytePlatelet EstimatePlatelet MorphologyHypochromasiaAnisocytosisMacrocytosisToxic GranulationToxic VacuolationMatagoWest Campus of Delta [facility] Medical CenterPT/[id number] 02:50:00 Test Item Value Reference Range Interpretation Comments prothrombin time (test code = 9.5 seconds 10.3-12.3 L prothrombin time) INR in Blood by Coagulation assay 0.90 (test code = 16906-1) [facility]partial thromboplastin [id number] 02:50:00 Test Item Value Reference Range Interpretation Comments INR in Blood by Coagulation 24.8 seconds 22.5-37.0 assay (test code = 86555-9) [facility] HospitalComprehensive metabolic 2000 panel - Serum [...] Serum or Plasma (test code = 6768-6) [facility] GroupCreat[facility] kinase [Enzymatic activity/volume] in Serum or [id number] 02:50:00 Test Item Value Reference Range Interpretation Comments creatine kinase (test code = creatine 187 U/L 20-180 H kinase) [facility] GroupNatriuretic peptide.B prohormone N-Terminal [Mass/volume] in Serum or [id number] 02:50:00 Test Item Value Reference Range Interpretation Comments N-term pro natriuretic peptide 171 pg/mL 0-125 H (test code = N-term pro natriuretic peptide) [facility] HospitalTroponin I.cardiac [Mass/volume] in [id number] 02:50:00 Test Item Value Reference Range Interpretation Comments cardiac troponin I (test code = cardiac <0.30 0.0-0.5 troponin I) [facility] HospitalCreatine kinase.MB [Mass/volume] in Serum or Plasma 2019-06-26 02:50:00 Test Item Value Reference Range Interpretation Comments mass creatinine kinase-mb (test 2.6 NG/mL 0.0-3.6 code = mass creatinine kinase-mb) [facility] W Auto Differential panel - [id number] 02:50:00 Test Item Value Reference Range Interpretation Comments white blood count (test code = 4.8 K/uL 4.0-11.5 white blood count) red blood count (test code = red 3.44 M/uL 3.80-5.20 L blood count) hemoglobin (test code = 11.0 g/dL 10.5-15.7 hemoglobin) hematocrit (test code = 34.4 % 34.0-50.0 hematocrit) Erythrocyte mean corpuscular 100.0 fL 86-100 volume [Entitic volume] (test code = 73361-7) mean corpuscular hemoglobin (test 32.0 pg 26.2-33.4 [...] 44.4-80.1 leukocytes in Blood (test code = 28535-7) Granulocytes Immature [#/volume] 0.0 K/uL 0.0-0.03 in Blood (test code = 11251-0) lymphocyte% (test code = 19.7 % 10.0-50.0 lymphocyte%) mono % (test code = mono %) 9.5 % 3.6-12.0 eos % (test code = eos %) 1.7 % 0.0-5.4 Basophils/100 leukocytes in 0.2 % 0.1-1.2 Unspecified specimen (test code = 87689-9) Neutrophils.band form [#/volume] 3.32 K/uL 1.56-6.13 in Blood (test code = 13051-2) Lymphocytes [#/volume] in 1.0 K/uL 1.18-3.74 L Unspecified specimen by Automated count (test code = 19667-5) mono # (test code = mono #) 0.46 K/uL 0.24-0.86 eos # (test code = eos #) 0.08 K/uL 0.04-0.36 basophil # (test code = basophil 0.01 K/uL 0.01-0.08 #) NRBC% (test code = NRBC%) 0 /100 WBC 0-0.2 NRBC# (test code = NRBC#) 0 K/uL [facility]different[facility], [id number] 02:50:00 NeutrophilsBandLymphocyteAtypical LymphMonocyteEosinophilBasophilMetamyelocytePlatelet EstimatePlatelet MorphologyHypochromasiaAnisocytosisMacrocytosisToxic GranulationToxic VacuolationMaMethodist Olive Branch HospitalPT/[id number] 02:50:00 Test Item Value Reference Range Interpretation Comments prothrombin time (test code = 9.5 seconds 10.3-12.3 L prothrombin time) INR in Blood by Coagulation assay 0.90 (test code = 68119-8) [facility]partial [facility]in [id number] 02:50:00 Test Item Value Reference Range Interpretation Comments INR in Blood by Coagulation 24.8 seconds 22.5-37.0 assay (test code = 92341-4) [facility] HospitalComprehensive [facility] 2000 panel - Serum [...] Serum or Plasma (test code = 6768-6) [facility] GroupCreatine kinase [Enzymatic activity/volume] in Serum or [id number] 02:50:00 Test Item Value Reference Range Interpretation Comments creatine kinase (test code = creatine 187 U/L 20-180 H kinase) [facility] HospitalNatriuretic peptide.B prohormone N-Terminal [Mass/volume] in Serum or [id number] 02:50:00 Test Item Value Reference Range Interpretation Comments N-term pro natriuretic peptide 171 pg/mL 0-125 H (test code = N-term pro natriuretic peptide) [facility] HospitalTroponin I.cardiac [Mass/volume] in [id number] 02:50:00 Test Item Value Reference Range Interpretation Comments cardiac troponin I (test code = cardiac <0.30 0.0-0.5 troponin I) [facility] HospitalCreatine kinase.MB [Mass/volume] in Serum or Plasma 2019-06-26 02:50:00 Test Item Value Reference Range Interpretation Comments mass creatinine kinase-mb (test 2.6 NG/mL 0.0-3.6 code = mass creatinine kinase-mb) [facility] W Auto Differential panel - [id number] 12:30:00 Test Item Value Reference Range Interpretation Comments white blood count (test code = 5.8 K/uL 4.0-11.5 white blood count) red blood count (test code = red 3.64 M/uL 3.80-5.20 L blood count) hemoglobin (test code = 11.6 g/dL 10.5-15.7 hemoglobin) hematocrit (test code = 36.9 % 34.0-50.0 hematocrit) Erythrocyte mean corpuscular 101.4 fL 86-100 H volume [Entitic volume] (test code = 35356-7) mean corpuscular hemoglobin (test 31.9 pg 26.2-33.4 [...] 44.4-80.1 leukocytes in Blood (test code = 75496-7) Granulocytes Immature [#/volume] 0.0 K/uL 0.0-0.03 in Blood (test code = 66812-7) lymphocyte% (test code = 20.2 % 10.0-50.0 lymphocyte%) mono % (test code = mono %) 9.8 % 3.6-12.0 eos % (test code = eos %) 0.9 % 0.0-5.4 Basophils/100 leukocytes in 0.2 % 0.1-1.2 Unspecified specimen (test code = 23874-3) Neutrophils.band form [#/volume] 4.00 K/uL 1.56-6.13 in Blood (test code = 55056-1) Lymphocytes [#/volume] in 1.2 K/uL 1.18-3.74 Unspecified specimen by Automated count (test code = 53605-1) mono # (test code = mono #) 0.57 K/uL 0.24-0.86 eos # (test code = eos #) 0.05 K/uL 0.04-0.36 basophil # (test code = basophil 0.01 K/uL 0.01-0.08 #) NRBC% (test code = NRBC%) 0 /100 WBC 0-0.2 NRBC# (test code = NRBC#) 0 K/uL [facility]different[facility], [id number] 12:30:00 NeutrophilsBandLymphocyteAtypical LymphMonocyteEosinophilBasophilPlatelet EstimatePlatelet MorphologyMacrocytosisMaMethodist Olive Branch HospitalBasi metabolic 2000 panel - Serum or [id number] 12:30:00 Test Item Value Reference Range Interpretation [...] = calcium 8.5 mg/dL 8.8-10.2 L level) [facility] W Auto Differential panel - [id number] 12:30:00 Test Item Value Reference Range Interpretation Comments white blood count (test code = 5.8 K/uL 4.0-11.5 white blood count) red blood count (test code = red 3.64 M/uL 3.80-5.20 L blood count) hemoglobin (test code = 11.6 g/dL 10.5-15.7 hemoglobin) hematocrit (test code = 36.9 % 34.0-50.0 hematocrit) Erythrocyte mean corpuscular 101.4 fL 86-100 H volume [Entitic volume] (test code = 34150-6) mean corpuscular hemoglobin (test 31.9 pg 26.2-33.4 [...] 44.4-80.1 leukocytes in Blood (test code = 21770-1) Granulocytes Immature [#/volume] 0.0 K/uL 0.0-0.03 in Blood (test code = 58555-6) lymphocyte% (test code = 20.2 % 10.0-50.0 lymphocyte%) mono % (test code = mono %) 9.8 % 3.6-12.0 eos % (test code = eos %) 0.9 % 0.0-5.4 Basophils/100 leukocytes in 0.2 % 0.1-1.2 Unspecified specimen (test code = 38811-0) Neutrophils.band form [#/volume] 4.00 K/uL 1.56-6.13 in Blood (test code = 96141-9) Lymphocytes [#/volume] in 1.2 K/uL 1.18-3.74 Unspecified specimen by Automated count (test code = 34682-9) mono # (test code = mono #) 0.57 K/uL 0.24-0.86 eos # (test code = eos #) 0.05 K/uL 0.04-0.36 basophil # (test code = basophil 0.01 K/uL 0.01-0.08 #) NRBC% (test code = NRBC%) 0 /100 WBC 0-0.2 NRBC# (test code = NRBC#) 0 K/uL [facility]different[facility], [id number] 12:30:00 NeutrophilsBandLymphocyteAtypical LymphMonocyteEosinophilBasophilPlatelet EstimatePlatelet MorphologyMacrocytosisMaMethodist Olive Branch HospitalBasic metabolic 2000 panel - Serum or [id number] 12:30:00 Test Item Value Reference Range Interpretation [...] = calcium 8.5 mg/dL 8.8-10.2 L level) [facility] HospitalUrinalysis complete panel - [id number] 11:54:00 Test Item Value Reference Range Interpretation Comments Color of Urine by Auto light yellow (test code = 58209-5) Appearance of Urine (test clear clear code = 5767-9) Glucose [Presence] in negative negative Urine by Automated test strip (test code = 49276-2) Bilirubin.total negative negative [Mass/volume] in Urine (test code = 1977-6) Ketones [Mass/volume] in negative negative Urine by Automated test strip (test code = 45229-2) Specific gravity of Urine 1.025 1.003-1.030 by Automated test strip (test code = 99815-4) blood urine (test code = negative negative blood urine) pH of Urine (test code = 6.500 5-9 2756-5) protein urine (UA) (test negative negative code = protein urine (UA)) Urobilinogen [Presence] normal 0.2-1.0 in Urine (test code = 18180-9) Nitrite [Presence] in negative negative Urine by Test strip (test code = 5802-4) Leukocyte esterase negative negative [Presence] in Urine by Automated test strip (test code = 23118-8) Erythrocytes [#/volume] <1 0-5 in Urine by Automated count (test code = 798-9) Leukocytes [#/area] in <1 0-5 Urine sediment by Automated count (test code = 15386-4) Epithelial cells <1 0-5 [Presence] in Urine sediment by Light microscopy (test code = 41727-1) Bacteria identified in none detected none detect Urine by Culture (test code = 630-4) Casts [#/area] in Urine =11-14 none detect H sediment by Automated count (test code = 29415-8) urine culture added? no (test code = urine culture added?) path casts,U (test code = cellular casts (1-5 none detect A path casts,U) [facility] GroupUrinalysis complete panel - [id number] 11:54:00 Test Item Value Reference Range Interpretation Comments Color of Urine by Auto light yellow (test code = 48783-8) Appearance of Urine (test clear clear code = 5767-9) Glucose [Presence] in negative negative Urine by Automated test strip (test code = 22240-0) Bilirubin.total negative negative [Mass/volume] in Urine (test code = 1978-6) Ketones [Mass/volume] in negative negative Urine by Automated test strip (test code = 93199-2) Specific gravity of Urine 1.025 1.003-1.030 by Automated test strip (test code = 51957-3) blood urine (test code = negative negative blood urine) pH of Urine (test code = 6.500 5-9 2756-5) protein urine (UA) (test negative negative code = protein urine (UA)) Urobilinogen [Presence] normal 0.2-1.0 in Urine (test code = 89730-2) Nitrite [Presence] in negative negative Urine by Test strip (test code = 5802-4) Leukocyte esterase negative negative [Presence] in Urine by Automated test strip (test code = 24786-7) Erythrocytes [#/volume] <1 0-5 in Urine by Automated count (test code = 798-9) Leukocytes [#/area] in <1 0-5 Urine sediment by Automated count (test code = 98113-7) Epithelial cells <1 0-5 [Presence] in Urine sediment by Light microscopy (test code = 89470-9) Bacteria identified in none detected none detect Urine by Culture (test code = 630-4) Casts [#/area] in Urine =11-14 none detect H sediment by Automated count (test code = 76093-1) urine culture added? no (test code = urine culture added?) path casts,U (test code = cellular casts (1-5 none detect A path casts,U) [facility] W Auto Differential panel - [id number] 09:30:00 Test Item Value Reference Range Interpretation Comments white blood count (test code = 5.6 K/uL 4.0-11.5 white blood count) red blood count (test code = red 3.98 M/uL 3.80-5.20 blood count) hemoglobin (test code = 12.7 g/dL 10.5-15.7 hemoglobin) hematocrit (test code = 39.8 % 34.0-50.0 hematocrit) Erythrocyte mean corpuscular 100.0 fL 86-100 volume [Entitic volume] (test code = 83300-3) mean corpuscular hemoglobin (test 31.9 pg 26.2-33.4 [...] 44.4-80.1 leukocytes in Blood (test code = 25233-4) Granulocytes Immature [#/volume] 0.0 K/uL 0.0-0.03 in Blood (test code = 06249-1) lymphocyte% (test code = 15.1 % 10.0-50.0 lymphocyte%) mono % (test code = mono %) 6.8 % 3.6-12.0 eos % (test code = eos %) 0.7 % 0.0-5.4 Basophils/100 leukocytes in 0.4 % 0.1-1.2 Unspecified specimen (test code = 38746-4) Neutrophils.band form [#/volume] 4.29 K/uL 1.56-6.13 in Blood (test code = 90829-7) Lymphocytes [#/volume] in 0.8 K/uL 1.18-3.74 L Unspecified specimen by Automated count (test code = 14244-9) mono # (test code = mono #) 0.38 K/uL 0.24-0.86 eos # (test code = eos #) 0.04 K/uL 0.04-0.36 basophil # (test code = basophil 0.02 K/uL 0.01-0.08 #) NRBC% (test code = NRBC%) 0 /100 WBC 0-0.2 NRBC# (test code = NRBC#) 0 K/uL [facility] Groupdifferential panel, [id number] 09:30:00 NeutrophilsBandLymphocyteAtypical LymphMonocyteEosinophilPlatelet EstimatePlatelet MorphologyMacrocytosisMataGifford Medical Center GroupPT/[id number] 09:30:00 Test Item Value Reference Range Interpretation Comments prothrombin time (test code = 10.5 seconds 10.3-12.3 prothrombin time) INR in Blood by Coagulation 0.95 assay (test code = 36545-2) [facility] [id number] 09:30:00 Test Item Value Reference Range Interpretation Comments INR in Blood by Coagulation 23.4 seconds 22.5-37.0 assay (test code = 63279-9) [facility] HospitalComprehensive metabolic 2000 panel - Serum [...] Serum or Plasma (test code = 6768-6) [facility] HospitalMagnesium [Moles/volume] in Unspecified specimen 2019-06-03 09:30:00 Test Item Value Reference Range Interpretation Comments magnesium level (test code = 1.8 mg/dL 1.6-2.4 magnesium level) [facility] HospitalEthanol [Mass/volume] in Serum or [id number] 09:30:00 Test Item Value Reference Range Interpretation Comments alcohol level (test code = alcohol <10.1 0.00-10.1 level) [facility] HospitalCreatine kinase [Enzymatic activity/volume] in Serum or [id number] 09:30:00 Test Item Value Reference Range Interpretation Comments creatine kinase (test code = creatine 150 U/L 20-180 kinase) [facility] HospitalNatriuretic peptide.B prohormone N-Terminal [Mass/volume] in Serum or [id number] 09:30:00 Test Item Value Reference Range Interpretation Comments N-term pro natriuretic peptide 200 pg/mL 0-125 H (test code = N-term pro natriuretic peptide) [facility] HospitalTroponin I.cardiac [Mass/volume] in [id number] 09:30:00 Test Item Value Reference Range Interpretation Comments cardiac troponin I (test code = cardiac <0.30 0.0-0.5 troponin I) [facility] HospitalCreatine kinase.MB [Mass/volume] in Serum or Plasma 2019-06-03 09:30:00 Test Item Value Reference Range Interpretation Comments mass creatinine kinase-mb (test 2.3 NG/mL 0.0-3.6 code = mass creatinine kinase-mb) [facility] HospitalMyoglobin [Mass/volume] in Serum or [id number] 09:30:00 Test Item Value Reference Range Interpretation Comments myoglobin (test code = myoglobin) 37 NG/mL 25-58 [facility] HospitalCB W Auto Differential panel - [id number] 09:30:00 Test Item Value Reference Range Interpretation Comments white blood count (test code = 5.6 K/uL 4.0-11.5 white blood count) red blood count (test code = red 3.98 M/uL 3.80-5.20 blood count) hemoglobin (test code = 12.7 g/dL 10.5-15.7 hemoglobin) hematocrit (test code = 39.8 % 34.0-50.0 hematocrit) Erythrocyte mean corpuscular 100.0 fL 86-100 volume [Entitic volume] (test code = 54591-0) mean corpuscular hemoglobin (test 31.9 pg 26.2-33.4 [...] 44.4-80.1 leukocytes in Blood (test code = 15787-7) Granulocytes Immature [#/volume] 0.0 K/uL 0.0-0.03 in Blood (test code = 11662-6) lymphocyte% (test code = 15.1 % 10.0-50.0 lymphocyte%) mono % (test code = mono %) 6.8 % 3.6-12.0 eos % (test code = eos %) 0.7 % 0.0-5.4 Basophils/100 leukocytes in 0.4 % 0.1-1.2 Unspecified specimen (test code = 79387-2) Neutrophils.band form [#/volume] 4.29 K/uL 1.56-6.13 in Blood (test code = 97095-4) Lymphocytes [#/volume] in 0.8 K/uL 1.18-3.74 L Unspecified specimen by Automated count (test code = 22373-3) mono # (test code = mono #) 0.38 K/uL 0.24-0.86 eos # (test code = eos #) 0.04 K/uL 0.04-0.36 basophil # (test code = basophil 0.02 K/uL 0.01-0.08 #) NRBC% (test code = NRBC%) 0 /100 WBC 0-0.2 NRBC# (test code = NRBC#) 0 K/uL [facility] Hospitaldifferential panel, [id number] 09:30:00 NeutrophilsBandLymphocyteAtypical LymphMonocyteEosinophilPlatelet EstimatePlatelet MorphologyMacrocytosisMaMethodist [facility] HospitalPT/[id number] 09:30:00 Test Item Value Reference Range Interpretation Comments prothrombin time (test code = 10.5 seconds 10.3-12.3 prothrombin time) INR in Blood by Coagulation 0.95 assay (test code = 67150-7) [facility] Hospitalpartial thromboplastin [id number] 09:30:00 Test Item Value Reference Range Interpretation Comments INR in Blood by Coagulation 23.4 seconds 22.5-37.0 assay (test code = 97880-3) [facility] HospitalComprehensive metabolic 2000 panel - Serum [...] Serum or Plasma (test code = 6768-6) [facility] HospitalMagnesium [Moles/volume] in Unspecified specimen 2019-06-03 09:30:00 Test Item Value Reference Range Interpretation Comments magnesium level (test code = 1.8 mg/dL 1.6-2.4 magnesium level) [facility] HospitalEthanol [Mass/volume] in Serum or [id number] 09:30:00 Test Item Value Reference Range Interpretation Comments alcohol level (test code = alcohol <10.1 0.00-10.1 level) [facility] HospitalCreatine kinase [Enzymatic activity/volume] in Serum or [id number] 09:30:00 Test Item Value Reference Range Interpretation Comments creatine kinase (test code = creatine 150 U/L 20-180 kinase) [facility] HospitalNatriuretic peptide.B prohormone N-Terminal [Mass/volume] in Serum or [id number] 09:30:00 Test Item Value Reference Range Interpretation Comments N-term pro natriuretic peptide 200 pg/mL 0-125 H (test code = N-term pro natriuretic peptide) [facility] HospitalTroponin I.cardiac [Mass/volume] in [id number] 09:30:00 Test Item Value Reference Range Interpretation Comments cardiac troponin I (test code = cardiac <0.30 0.0-0.5 troponin I) [facility] HospitalCreatine kinase.MB [Mass/volume] in Serum or Plasma 2019-06-03 09:30:00 Test Item Value Reference Range Interpretation Comments mass creatinine kinase-mb (test 2.3 NG/mL 0.0-3.6 code = mass creatinine kinase-mb) [facility] HospitalMyoglobin [Mass/volume] in Serum or [id number] 09:30:00 Test Item Value Reference Range Interpretation Comments myoglobin (test code = myoglobin) 37 NG/mL 25-58 [facility] HospitalUrinalysis complete panel - [id number] 05:40:00 Test Item Value Reference Range Interpretation Comments Color of Urine by Auto yellow (test code = 32403-2) Appearance of Urine (test SL cloudy clear A code = 5767-9) Glucose [Presence] in Urine negative negative by Automated test strip (test code = 69165-9) Bilirubin.total negative negative [Mass/volume] in Urine (test code = 1978-6) Ketones [Mass/volume] in =1 negative H Urine by Automated test strip (test code = 42016-4) Specific gravity of Urine 1.022 1.003-1.030 by Automated test strip (test code = 48888-8) blood urine (test code = trace negative blood urine) pH of Urine (test code = 7.000 5-9 2756-5) protein urine (UA) (test =1+ (30 negative H code = protein urine (UA)) Urobilinogen [Presence] in =2.0 0.2-1.0 H Urine (test code = 83896-4) Nitrite [Presence] in Urine positive negative H by Test strip (test code = 5802-4) Leukocyte esterase =4 negative H [Presence] in Urine by Automated test strip (test code = 75631-4) Erythrocytes [#/volume] in =6-10 0-5 H Urine by Automated count (test code = 798-9) Leukocytes [#/area] in =11-14 0-5 H Urine sediment by Automated count (test code = 92742-3) Epithelial cells [Presence] =11-25 0-5 H in Urine sediment by Light microscopy (test code = 06981-2) Bacteria identified in trace none detect Urine by Culture (test code = 630-4) Casts [#/area] in Urine =2-5 none detect sediment by Automated count (test code = 04639-8) urine culture added? (test no. contaminated. code = urine culture added?) [facility] HospitalBacteria identified in Urine by [id number] 05:40:00Bacteria Ur CultPerry County General HospitalPT/[id number] 05:17:00 Test Item Value Reference Range Interpretation Comments prothrombin time (test code = 9.9 seconds 10.3-12.3 L prothrombin time) INR in Blood by Coagulation assay 0.94 (test code = 07484-3) [facility] Hospitalpartial thromboplastin [id number] 05:17:00 Test Item Value Reference Range Interpretation Comments INR in Blood by Coagulation 24.3 seconds 22.5-37.0 assay (test code = 94465-1) [facility] W Auto Differential panel - [id number] 05:17:00 Test Item Value Reference Range Interpretation Comments white blood count (test 5.6 K/uL 4.0-11.5 code = white blood count) red blood count (test 4.89 M/uL 3.80-5.20 code = red blood count) Hemoglobin [Mass/volume] 15.0 g/dL 10.5-15.7 in Blood (test code = 718-7) hematocrit (test code = 47.9 % 34.0-50.0 hematocrit) Erythrocyte mean 97.9 fL 78-98 corpuscular volume [Entitic volume] (test code = 78036-7) Erythrocyte mean 30.6 pg 26.2-33.4 corpuscular hemoglobin [Entitic mass] (test code = 75251-8) mean corpuscular HGB 31.3 g/dL 31.5-36.2 L conc (test code = mean corpuscular HGB conc) red cell distribution 13.3 % 11.5-15.5 width (test code = red cell distribution width) Platelets [#/volume] in 283 K/uL 137-338 Blood (test code = 07611-3) Platelet mean volume 6.8 fL 8.4-11.8 L [Entitic volume] in Blood (test code = 78007-3) Neutrophils.band 68.6 % 44.4-80.1 form/100 leukocytes in Blood (test code = 21030-1) Lymphocytes/100 20.7 % 10.0-50.0 leukocytes in Body fluid (test code = 48263-8) Monocytes/100 leukocytes 9.2 % 3.6-12.04 in Blood by Automated count (test code = 5905-5) Eosinophils/100 0.4 % 0.0-5.41 leukocytes in Blood by Automated count (test code = 713-8) Basophils/100 leukocytes 1.1 % 0.0-0.79 H in Blood by Automated count (test code = 706-2) Platelet morphology hypersegmented polys normal RBC. finding [Identifier] in Blood (test code = 62087-8) [facility] Hospitaldifferential panel, [id number] 05:17:00 NeutrophilsBandLymphocyteAtypical LymphMonocyteEosinophilBasophilMyelocytePlatelet EstimatePlatelet M orphologyHypersegmented PolysToxic VacuolationSmudge CellsPer[facility] HospitalComprehensive metabolic 2000 panel - Serum or [id number] 05:17:00 Test Item Value Reference Range Interpretation [...] Serum or Plasma (test code = 6768-6) [facility] HospitalCreatine kinase [Enzymatic activity/volume] in Serum or [id number] 05:17:00 Test Item Value Reference Range Interpretation Comments creatine kinase (test code = creatine 246 U/L 20-180 H kinase) [facility] HospitalTroponin I.cardiac [Mass/volume] in [id number] 05:17:00 Test Item Value Reference Range Interpretation Comments cardiac troponin I (test code = cardiac <0.30 0.0-0.5 troponin I) [facility] HospitalCreatine kinase.MB [Mass/volume] in Serum or Plasma 2018-10-09 05:17:00 Test Item Value Reference Range Interpretation Comments mass creatinine kinase-mb (test 3.9 NG/mL 0.0-3.6 H code = mass creatinine kinase-mb) [facility]
--- NOTE | 2022-02-15 11:26 | RAD REPORT ---
EXAM DESCRIPTION: CT - Ct Stroke Brain Wo Cont - 02/15/2022 11:14 am CLINICAL HISTORY: Neuro deficit, acute, stroke suspected COMPARISON: Facial Bones W/ Mpr dated 04/06/2021; Head C Spine Mpr Wo Con dated 04/06/2021 TECHNIQUE: Axial 5 millimeter thick images of the head were obtained without IV contrast. All CT scans are performed using dose optimization technique as appropriate and may include automated exposure control or mA/KV adjustment according to patient size. FINDINGS: No intracranial hemorrhage, mass, or cerebral edema. No cortical level infarction identifi ed. No cortical edema or sulcal effacement. Mild to moderate atrophy changes are present with ventric les in proportion the amount of volume loss. Chronic ischemic changes scattered in the cerebral white matter. Physiologic basal ganglia calcifications are present. No extra-axial fluid collections. Gra y matter-white matter differentiation is preserved.Intracranial findings are not grossly different fr om March 2021. Visualized portions of the mastoid air cells, paranasal sinuses, and orbits are unremarkable. Findings were initially only available in the exception folder which precludes dictating report and p recludes comparison to prior studies. A preliminary findings were telephoned to Dr. Santana 11:03 a.m .. The final report does not deviate from the preliminary telephone report. IMPRESSION: No CT evidence of acute intracranial process. Atrophy and chronic ischemic changes are not substantially different from March 2021. Chronic ischemic changes can mask nonhemorrhagic acute infarction. MR brain followup can be obtained if there is ongoing concern for acute ischemia.
[2022-02-15 11:45] LABS: Absolute Lymphocytes (CBC) 0.9 K/uL (0.7-4.9); Hematocrit 37.5 % (36.0-45.0); MPV 7.6 fL (7.6-11.3); RBC Red Blood Cell Count 4.62 M/uL (3.86-4.86)
--- NOTE | 2022-02-15 11:45 | RAD REPORT ---
EXAM DESCRIPTION: RAD - Chest Single View - 02/15/2022 11:36 am CLINICAL HISTORY: strokeprotocol chest film COMPARISON: Portable 09/11/2021 TECHNIQUE: AP portable chest image was obtained 02/15/2022 11:36 am . FINDINGS: Lung volumes are low. Interstitial markings are prominent but not clearly different from c omparison. A mild failure or volume overload could be masked. Mild viral infiltrate could also be obs cured. Heart size is magnified by body habitus affects shallow inspiration and portable technique. Heart si ze is similar to comparison. Central vasculature also similar to comparison No measurable pleural effusion and no pneumothorax. No acute bony abnormality seen. No acute aortic findings suspected. IMPRESSION: No acute cardiopulmonary process suspected. As detailed above, exam limitations could obscure early failure, volume overload or infiltrate
[2022-02-15 11:52] LABS: Protime INR 1.03
[2022-02-15 12:45] LABS: Anisocytosis 1+; Blood Morphology Comment NOTED (NOT SEEN); Platelet Estimate ADEQ; White Blood Cell Scan OK (OK)
[2022-02-15 13:00] LABS: Urine Blood Negative (Negative); Urine Glucose Negative (Negative); Urine Protein Negative (Negative); Urine Specific Gravity 1.015 (1.005-1.030); Urine pH 5.5 (5.0-7.0)
[2022-02-15] MEDS ORDERED: ONDANSETRON 4 MG/2 ML VIAL IV PRN (13:17)
[2022-02-15 13:24] LABS: Urine Bacteria NONE SEEN /HPF (<20); Urine RBC NONE SEEN /HPF (NONE SEEN)
[2022-02-15 13:30] VITALS: BMI 36.9
[2022-02-15] MEDS: ENOXAPARIN 40 MG/0.4 ML SQ SCH (14:00)
[2022-02-15] MEDS: NA CHLORIDE 0.9% 1,000 ML IV SCH (14:00)
[2022-02-15 14:55] LABS: Potassium 3.7 mmol/L (3.5-5.1); Troponin High Sensitivity 57.8 pg/mL (<58.9)
--- NOTE | 2022-02-15 15:06 | ER ---
Nurse's Notes [facility] Name: Kyler Rushing Age: 76 yrs Sex: Female : 1945 Arrival Date: 02/15/2022 Time: 10:51 Bed 4 Private MD: Diagnosis: Transient cerebral ischemic attack, unspecified;Altered mental status, unspecified Presentation: 02/15 10:[address] via wheelchair. Onset of symptoms was February 15, 2022. ll1 10:52 Method Of Arrival: Wheelchair ll1 10:52 Acuity: TOVA 2 ll1 11:05 Chief complaint: Patient's son or daughter states: 1 hour [employer]UDIO [employer] patient started drooling, ll1 acting confused, loss of bowel, L eye more droopy and L sided deficits noted by daughter. + AMS. Daughter reports 3 strokes in the past month. Coronavirus screen: Vaccine status: Patient reports receiving the 2nd dose of the covid vaccine. Client denies travel out of the [place] in the last 14 days. At this time, the client does not indicate any symptoms associated with coronavirus-19. Ebola Screen: Patient denies travel to an Ebola-affected area in the 21 days before illness onset. Initial Sepsis Screen: Does the patient meet any 2 criteria? No. Patient's initial sepsis screen is negative. Does the patient have a suspected source of infection? No. Patient's initial sepsis screen is negative. Risk Assessment: Do you want to hurt yourself or someone else? Patient reports no desire to harm self or others. Triage Assessment: 11:15 General: Appears uncomfortable, ill, Behavior is cooperative, appropriate for age, ll1 anxious. Pain: Complains of pain in head Quality of pain is described as aching. Neuro: Level of Consciousness is awake, obeys commands, confused, Oriented to person, Gait is unsteady, shuffling, Speech is slurred, Facial droop on left, Reports headache weakness AMS. Cardiovascular: No deficits noted. Respiratory: No deficits noted. Musculoskeletal: Circulation, motion, and sensation intact. Capillary refill < 3 seconds, Reports L side weak. Historical: - Allergies: 11:13 No Known Allergies; ll1 - Home Meds: 11:43 atorvastatin 40 mg Oral tab 1 tab nightly [Active]; esomeprazole magnesium 40 mg Oral jg9 cpDR 1 cap once daily [Active]; isosorbide mononitrate 30 mg Oral Tb24 1 tab once daily [Active]; levothyroxine 200 mcg tab 1 tab once daily [Active]; metformin 500 mg Oral Tb24 1 tab once daily [Active]; Plavix 75 mg Oral tab 1 tab once daily [Active]; - PMHx: 11:13 CHF; CVA; left sided weakness; Diabetes - IDDM; High Cholesterol; Hypertension; ll1 strokes; TIA; gastritis; - PSHx: 11:13 Thyroidectomy; heart stents; ll1 - Immunization history:: Client reports receiving the 2nd dose of the Covid vaccine. - Social history:: Smoking status: Patient denies any tobacco usage or history of. Screenin:00 VAN Screening: Arm Drift: Minor drift. Visual Disturbance: No visual disturbance noted. jg9 Aphasia: No aphasia noted. Neglect: No neglect noted. 11:25 Patient has been NPO before screening. The patient is alert, able to follow commands. jg9 The patient does not exhibit slurred or garbled speech The patient is exhibiting difficulty speaking. The patient does not exhibit difficulty understanding words. The patient is able to swallow own secretions with no drooling or need for suction. Patient tolerated one teaspoon of water. No drooling, immediate coughing, gurgling, or clearing of the throat was noted. The patient tolerated 90mL of water. No drooling, immediate coughing, gurgling, or clearing of the throat was noted. The patient passed the bedside swallow screening. Oral medications may be given as ordered. Contact Physician for further diet orders. Provider notified of bedside swallow screening results: Home Santana MD. 11:42 Abuse screen: Denies threats or abuse. Denies injuries from another. Nutritional jg9 screening: No deficits noted. Tuberculosis screening: No symptoms or risk factors identified. Fall Risk None identified. Assessment: 10:51 Reassessment: Code stroke called overhead, pt taken to CT via wheelchair by So POWELL. ph 11:00 Reassessment: Patient is alert, oriented x 3, equal unlabored respirations, skin jg9 warm/dry/pink. General: Appears in no apparent distress. Pain: Denies pain. Neuro: Level of Consciousness is awake, alert, Oriented to person, place, Cco are weak on left Moves all extremities. Gait is Speech dysphagia Hx of previous cva (today more than normal). Facial droop on left, Pupils are PERRLA, Intact Babinski Reports. Cardiovascular: No deficits noted. Respiratory: No deficits noted. GI: No deficits noted. : No deficits noted. EENT: Eyes left eye droop. Derm: Skin has blisters on bilateral lower extremity blisters with fluid seeping, Hx of chf. Musculoskeletal: No deficits noted. 12:59 Reassessment: Patient appears in no apparent distress at this time. Patient and/or ph family updated on plan of care and expected duration. Pain level reassessed. 14:00 Reassessment: No changes from previously documented assessment. Patient and/or family jg9 updated on plan of care and expected duration. Pain level reassessed. Patient is alert, oriented x 3, equal unlabored respirations, skin warm/dry/pink. 15:00 Reassessment: No changes from previously documented assessment. Patient and/or family jg9 updated on plan of care and expected duration. Pain level reassessed. Patient is alert, oriented x 3, equal unlabored respirations, skin warm/dry/pink. 16:00 Reassessment: No changes from previously documented assessment. Patient and/or family jg9 updated on plan of care and expected duration. Pain level reassessed. Patient is alert, oriented x 3, equal unlabored respirations, skin warm/dry/pink. 17:00 Reassessment: No changes from previously documented assessment. Patient and/or family jg9 updated on plan of care and expected duration. Pain level reassessed. Patient is alert, oriented x 3, equal unlabored respirations, skin warm/dry/pink. 18:00 Reassessment: No changes from previously documented assessment. Patient and/or family jg9 updated on plan of care and expected duration. Pain level reassessed. Patient is alert, oriented x 3, equal unlabored respirations, skin warm/dry/pink. Vital Signs: 11:05 BP 156 / 128; Pulse 73; Resp 18; Temp 97.3; Pulse Ox 100% on R/A; Weight 91.63 kg; ll1 Height 5 ft. 2 in. (157.48 cm); 12:58 BP 145 / 67; Pulse 76; Resp 21; Pulse Ox 100% on R/A; ph 14:00 BP 123 / 61; Pulse 71; Resp 16 S; Pulse Ox 99% on R/A; jg9 15:30 BP 163 / 63; Pulse 88; Resp 21 S; Pulse Ox 97% on R/A; jg9 16:00 BP 139 / 62; Pulse 88; Resp 21; Pulse Ox 99% on R/A; jg9 17:00 BP 132 / 72; Pulse 20; Resp 20 S; Pulse Ox 98% on R/A; jg9 18:00 BP 135 / 75; Pulse 85; Resp 17 S; Pulse Ox 97% on R/A; jg9 11:05 Body Mass Index 36.95 (91.63 kg, 157.48 cm) 1 NIH Stroke Scale Scores: 11:00 NIHSS Score: 9 jg9 11:21 NIHSS Score: 8 [facility] ED Course: 10:51 Patient arrived in ED. ph 11:06 Home Santana MD is Attending Physician. jr11 11:11 Patient has correct armband on for positive identification. Placed in gown. Bed in low mh5 position. Call light in reach. Side rails up X2. Adult w/ patient. Warm blanket given. teletypesetter monitor on. Pulse ox on. NIBP on. 11:12 EKG done, by ED staff, reviewed by Home Santana MD. 5 11:13 Triage completed. 1 11:14 CT Stroke Brain w/o Contrast In Process Unspecified. EDMS 11:15 Arm band placed on right wrist. j9 11:18 Shawnee Sesay, RN is Primary Nurse. j9 11:20 COVID-19 SARS RT PCR (Document "Date of Onset" if Symptomatic) Sent. 5 11:35 Inserted saline lock: 20 gauge in right hand, using aseptic technique. Blood collected. jg9 11:38 Stroke CXR 1 View In Process Unspecified. EDMS 12:45 Straight cath inserted, using sterile technique, 16 Fr. Returned clear yellow urine. jg9 Patient tolerated well. 15:05 Evgeny Lopez MD is Hospitalizing Provider. jr11 18:01 No provider procedures requiring assistance completed. jg9 18:01 Patient admitted, IV remains in place. jg9 Administered Medications: No medications were administered Medication: 11:43 VIS not applicable for this client. jg9 Outcome: 15:06 Decision to Hospitalize by Provider. jr11 18:01 Admitted to Med/surg accompanied by nurse, via stretcher, room 214, Report called to bo Boyd RN 18:01 Condition: stable 18:08 Patient left the ED. jg9 NIH Stroke Scale - NIH Stroke Score Date: 02/15/2022 Time: 11:00 Total Score = 9 1a. Level of Consciousness (LOC) - 0(Alert) 1b. Level of Consciousness (LOC) (Month \\T\\ Age) - 1(One) 1c. LOC Commands (Open \\T\\ Closes Eyes/[employer] Sales Consultant) - 0(Both) 2. Best Gaze (Lateral Gaze Paresis) - 0(Normal) 3. Visual Field Loss - 0(No visual loss) 4. Facial Palsy - 2(Partial paralysis) 5a. Left Arm: Motor (10-second hold) - 1(Drift) 5b. Right Arm: Motor (10-second hold) - 0(No drift) 6a. Left Leg: Motor (5-second hold - always test supine) - 2(Drift, some effort against gravity) 6b. Right Leg: Motor (5-second hold - always test supine) - 0(No drift) 7. Limb Ataxia (finger/nose \\T\\ heel/mccarthy - test with eyes open) - 1(Present in one limb) 8. Sensory Loss (pinprick arms/legs/face) - 1(Mild to moderate loss) 9. Best Language: Aphasia (description/naming/reading) - 0(No aphasia) 10. Dysarthria (speech clarity - read or repeat words) - 1(Mild to Moderate) 11. Extinction and Inattention (visual/tactile/auditory/spatial/personal) - 0(No abnormality) Initials: jg9 NIH Stroke Scale - NIH Stroke Score Date: 02/15/2022 Time: 11:21 Total Score = 8 1a. Level of Consciousness (LOC) - 0(Alert) 1b. Level of Consciousness (LOC) (Month \\T\\ Age) - 2(Neither) 1c. LOC Commands (Open \\T\\ Closes Eyes/[employer] Sales Consultant) - 0(Both) 2. Best Gaze (Lateral Gaze Paresis) - 0(Normal) 3. Visual Field Loss - 0(No visual loss) 4. Facial Palsy - 2(Partial paralysis) 5a. Left Arm: Motor (10-second hold) - 1(Drift) 5b. Right Arm: Motor (10-second hold) - 0(No drift) 6a. Left Leg: Motor (5-second hold - always test supine) - 2(Drift, some effort against gravity) 6b. Right Leg: Motor (5-second hold - always test supine) - 0(No drift) 7. Limb Ataxia (finger/nose \\T\\ heel/mccarthy - test with eyes open) - 0(Absent) 8. Sensory Loss (pinprick arms/legs/face) - 0(Normal) 9. Best Language: Aphasia (description/naming/reading) - 0(No aphasia) 10. Dysarthria (speech clarity - read or repeat words) - 1(Mild to Moderate) 11. Extinction and Inattention (visual/tactile/auditory/spatial/personal) - 0(No abnormality) Initials: jr11 Signatures: Dispatcher [employer] EDCaitie Gutierres RN RN ph Martinez, Maria 5 So Acosta RN RN ll1 Shawnee Sesay RN RN jg9 Home Santana MD MD jr11 Corrections: (The following items were deleted from the chart) 11:14 11:13 PMHx: CHF; ll1 ll1
--- NOTE | 2022-02-15 15:06 | EDPHYS ---
Physician Documentation [facility] Name: Kyler Rushing Age: 76 yrs Sex: Female : 1945 Arrival Date: 02/15/2022 Time: 10:51 Bed 4 Private MD: ED Physician Home Santana HPI: 02/15 11:21 This 76 yrs old Black Female presents to ER via Wheelchair with complaints of worsening jr11 L sided weakness, dysarthria, confusion. 11:21 The patient's problem is reported as 76-year-old diabetic with history of hypertension jr11 and a stroke with residual dysarthria left-sided weakness here with worsening strokelike symptoms, woke up with these approximately an hour ago. Per the daughter, she has a new left-sided facial droop. Denies any fever, she was not complaining of any pain. She was just very repetitive this morning. History limited by strokelike symptoms and dysarthria, altered mental status.. Historical: - Allergies: 11:13 No Known Allergies; ll1 - Home Meds: 11:43 atorvastatin 40 mg Oral tab 1 tab nightly [Active]; esomeprazole magnesium 40 mg Oral jg9 cpDR 1 cap once daily [Active]; isosorbide mononitrate 30 mg Oral Tb24 1 tab once daily [Active]; levothyroxine 200 mcg tab 1 tab once daily [Active]; metformin 500 mg Oral Tb24 1 tab once daily [Active]; Plavix 75 mg Oral tab 1 tab once daily [Active]; - PMHx: 11:13 CHF; CVA; left sided weakness; Diabetes - IDDM; High Cholesterol; Hypertension; ll1 strokes; TIA; gastritis; - PSHx: 11:13 Thyroidectomy; heart stents; ll1 - Immunization history:: Client reports receiving the 2nd dose of the Covid vaccine. - Social history:: Smoking status: Patient denies any tobacco usage or history of. ROS: 11:21 Unable to obtain ROS due to altered mental status. jr11 Exam: 11:21 Radiologist reports: No bleed, no acute finding jr11 11:21 Constitutional: This is a well developed, well nourished patient who is awake, alert, and in no acute distress. Head/Face: Normocephalic, atraumatic. Eyes: Extra-ocular motions intact. Lids and lashes normal. Conjunctiva and sclera are non-icteric and not injected. Cornea within normal limits. Periorbital areas with no swelling, redness, or edema. ENT: Nares patent. No nasal discharge, no septal abnormalities noted. Oropharynx with no redness, swelling, or masses, exudates, or evidence of obstruction, uvula midline. Mucous membranes moist. Chest/axilla: Normal chest wall appearance and motion. Nontender with no deformity. No lesions are appreciated. Cardiovascular: Regular rate and rhythm with a normal S1 and S2. No gallops, murmurs, or rubs. Normal PMI, no JVD. No pulse deficits. Respiratory: Lungs have equal breath sounds bilaterally, clear to auscultation and percussion. No rales, rhonchi or wheezes noted. No increased work of breathing, no retractions or nasal flaring. Abdomen/GI: Soft, non-tender, with normal bowel sounds. No distension or tympany. No guarding or rebound. No evidence of tenderness throughout. Skin: Warm, dry with normal turgor. Normal color with no rashes, no lesions, and no evidence of cellulitis. MS/ Extremity: Pulses equal, no cyanosis. Neurovascular intact. Full, normal range of motion. Vital Signs: 11:05 BP 156 / 128; Pulse 73; Resp 18; Temp 97.3; Pulse Ox 100% on R/A; Weight 91.63 kg; ll1 Height 5 ft. 2 in. (157.48 cm); 12:58 BP 145 / 67; Pulse 76; Resp 21; Pulse Ox 100% on R/A; ph 14:00 BP 123 / 61; Pulse 71; Resp 16 S; Pulse Ox 99% on R/A; jg9 15:30 BP 163 / 63; Pulse 88; Resp 21 S; Pulse Ox 97% on R/A; jg9 16:00 BP 139 / 62; Pulse 88; Resp 21; Pulse Ox 99% on R/A; jg9 17:00 BP 132 / 72; Pulse 20; Resp 20 S; Pulse Ox 98% on R/A; jg9 18:00 BP 135 / 75; Pulse 85; Resp 17 S; Pulse Ox 97% on R/A; jg9 11:05 Body Mass Index 36.95 (91.63 kg, 157.48 cm) ll1 NIH Stroke Scale Scores: 11:00 NIHSS Score: 9 jg9 11:21 NIHSS Score: 8 jr MDM: 11:08 Patient medically screened. jr 11:21 Differential diagnosis: CVA, encephalopathy. Data reviewed: vital signs, nurses notes, [facility] EMS record. ED course: EKG interpreted by me shows normal sinus rhythm, normal axis, normal intervals, no acute ST changes, EKG normal.. 11:25 ED course: Patient with concern for worsening strokelike symptoms, patient woke up with [facility] worsening deficits, she is not a tPA candidate. Patient recently discharged less than a week ago for a TIA. Patient is already on Plavix.. 15:04 ED course: BMP normal to be admitted, accepted MS mil. [facility] 02/15 11:08 Order name: Basic Metabolic Panel; Complete Time: 15:03 [facility] 02/15 11:08 Order name: CBC with Diff; Complete Time: 13:28 [facility] 02/15 11:08 Order name: Protime (+inr); Complete Time: 12:06 [facility] 02/15 11:08 Order name: Ptt, Activated; Complete Time: 12:06 [facility] 02/15 11:08 Order name: Troponin High Sensitivity; Complete Time: 15:03 [facility] 02/15 11:08 Order name: COVID-19 SARS RT PCR (Document "Date of Onset" if Symptomatic); Complete [facility] Time: 13:28 02/15 11:35 Order name: Glucose, Ancillary Testing; Complete Time: 12:06 [facility] 02/15 11:51 Order name: CBC Smear Scan; Complete Time: 13:28 [facility] 02/15 13:01 Order name: Urine Dipstick-Ancillary; Complete Time: 13:28 [facility] 02/15 13:12 Order name: Urine Microscopic Only; Complete Time: 13:28 [facility] 02/15 13:22 Order name: Thyroid Stimulating Hormone; Complete Time: 14:32 [facility] 02/15 13:22 Order name: CBC with Automated Diff [facility] 02/15 13:22 Order name: CBC with Automated Diff [facility] 02/15 11:08 Order name: CT Stroke Brain w/o Contrast; Complete Time: 12:06 [facility] 02/15 11:08 Order name: Stroke CXR 1 View; Complete Time: 12:06 [facility] 02/15 11:08 Order name: EKG; Complete Time: 11:09 [facility] 02/15 11:08 Order name: Accucheck; Complete Time: 12:02 [facility] 02/15 11:08 Order name: Cardiac monitoring; Complete Time: 11:11 02/15 11:08 Order name: EKG - Nurse/Tech; Complete Time: 11:11 [facility] 02/15 11:08 Order name: IV Saline Lock; Complete Time: 12:02 [facility] 02/15 11:08 Order name: Labs collected and sent; Complete Time: 11:42 [facility] 02/15 11:08 Order name: NPO; Complete Time: 11:41 [facility] 02/15 13:22 Order name: Heart Healthy; Complete Time: 13:30 [facility] 02/15 13:22 Order name: Comprehensive Metabolic Panel [facility] 02/15 13:22 Order name: Comprehensive Metabolic Panel [facility] 02/15 13:22 Order name: Lipid Profile [facility] 02/15 13:22 Order name: Lipid Profile [facility] 02/15 17:11 Order name: Glucose, Ancillary Testing; Complete Time: 17:15 [facility] 02/15 11:08 Order name: O2 Sat Monitoring; Complete Time: 11:42 [facility] 02/15 11:08 Order name: Stroke Swallow Screen; Complete Time: 11:42 [facility] 02/15 11:53 Order name: Labs - recollect needed: recollect the chem 7 hemolyzed; Complete Time: eb 13:13 02/15 12:39 Order name: Labs - recollect needed: recollect the recollect inside lab paged to come eb draw; Complete Time: 13:30 Administered Medications: No medications were administered Disposition Summary: 02/15/22 15:06 Hospitalization Ordered Hospitalization Status: Observation [facility] Provider: Evgeny Lopez [facility] Condition: Stable [facility] Problem: an acute exacerbation [facility] Symptoms: are unchanged [facility] Bed/Room Type: Standard [facility] Location: Telemetry/MedSurg (observation)(02/15/22 17:26) ja Room Assignment: 214(02/15/22 17:26) [facility] Diagnosis - Transient cerebral ischemic attack, unspecified jr - Altered mental status, unspecified [facility] Forms: - Medication Reconciliation Form jr11 - SBAR form jr NIH Stroke Scale - NIH Stroke Score Date: 02/15/2022 Time: 11:00 Total Score = 9 1a. Level of Consciousness (LOC) - 0(Alert) 1b. Level of Consciousness (LOC) (Month \\T\\ Age) - 1(One) 1c. LOC Commands (Open \\T\\ Closes Eyes/[employer] Helper) - 0(Both) 2. Best Gaze (Lateral Gaze Paresis) - 0(Normal) 3. Visual Field Loss - 0(No visual loss) 4. Facial Palsy - 2(Partial paralysis) 5a. Left Arm: Motor (10-second hold) - 1(Drift) 5b. Right Arm: Motor (10-second hold) - 0(No drift) 6a. Left Leg: Motor (5-second hold - always test supine) - 2(Drift, some effort against gravity) 6b. Right Leg: Motor (5-second hold - always test supine) - 0(No drift) 7. Limb Ataxia (finger/nose \\T\\ heel/mccarthy - test with eyes open) - 1(Present in one limb) 8. Sensory Loss (pinprick arms/legs/face) - 1(Mild to moderate loss) 9. Best Language: Aphasia (description/naming/reading) - 0(No aphasia) 10. Dysarthria (speech clarity - read or repeat words) - 1(Mild to Moderate) 11. Extinction and Inattention (visual/tactile/auditory/spatial/personal) - 0(No abnormality) Initials: jg9 NIH Stroke Scale - NIH Stroke Score Date: 02/15/2022 Time: 11:21 Total Score = 8 1a. Level of Consciousness (LOC) - 0(Alert) 1b. Level of Consciousness (LOC) (Month \\T\\ Age) - 2(Neither) 1c. LOC Commands (Open \\T\\ Closes Eyes/Bl[employer] Furnace Helper) - 0(Both) 2. Best Gaze (Lateral Gaze Paresis) - 0(Normal) 3. Visual Field Loss - 0(No visual loss) 4. Facial Palsy - 2(Partial paralysis) 5a. Left Arm: Motor (10-second hold) - 1(Drift) 5b. Right Arm: Motor (10-second hold) - 0(No drift) 6a. Left Leg: Motor (5-second hold - always test supine) - 2(Drift, some effort against gravity) 6b. Right Leg: Motor (5-second hold - always test supine) - 0(No drift) 7. Limb Ataxia (finger/nose \\T\\ heel/mccarthy - test with eyes open) - 0(Absent) 8. Sensory Loss (pinprick arms/legs/face) - 0(Normal) 9. Best Language: Aphasia (description/naming/reading) - 0(No aphasia) 10. Dysarthria (speech clarity - read or repeat words) - 1(Mild to Moderate) 11. Extinction and Inattention (visual/tactile/auditory/spatial/personal) - 0(No abnormality) Initials: jr11 Signatures: Dispatcher [employer] EDCO Home Salazar RN RN ja1 Zina Cm Lynsay, RN RN ll1 Shawnee Sesay RN RN jg9 Home Santana MD MD jr11 Corrections: (The following items were deleted from the chart) 11:14 11:13 PMHx: CHF; ll1 ll1 13:12 11:08 URINALYSIS+U.LAB.BRZ ordered. EDCO EDCO 15:56 15:06 Telemetry/MedSurg (observation) jr11 eb 15:56 15:06 jr11 eb 15:56 15:56 eb 17:26 15:56 [facility] ER HOLD eb [facility] 17:26 15:56 ERHOLD- eb 1
[2022-02-15] MEDS: INSULIN -REGULAR HUMAN 50 UNIT/0.5 ML ML SQ SCH ×2 (16:30→21:00)
--- NOTE | 2022-02-15 16:41 | P.HP ---
Certification for Inpatient Patient admitted to: Observation Practitioner: I am a practitioner with admitting privileges, knowledge of patient current condition, hospital course, and medical plan of care. Services: Services provided to patient in accordance with Admission requirements found in Title 42 Section 412.3 of the Code of Federal Regulations Patient History Date of Service: 02/15/22 Reason for admission: TIA. History of Present Illness: 76 y o patient with medical history significant for hypertension, hyperlipidemia, diabetes mellitus type 2, hypothyroidism who was evaluated for episode of altered mentation and focal weakness and concerns for TIA. She has had recurrent work-up for TIA and and this was found to be negative however because of her comorbid condition of hypertension, diabetes and hyperlipidemia she was deemed to be at risk of adverse event. She was asked to be evaluated for inpatient work-up of possible TIA/stroke. She denies any overt episode of fever, chills, rigor, nausea, vomiting however she does have significant weakness in the left upper and lower extremity weakness she denies any headaches. She states she reports some visual impairment however no diplopia. Initial CT of the head done revealed no acute abnormality. Allergies No Known Allergies Allergy (Verified 02/15/21 20:00) Home Medications: Isosorbide Mononitrate [Isosorbide Mononitrate ER] 30 mg PO DAILY 01/01/21 Levothyroxine Sodium [Levothyroxine] 200 mcg PO DAILY 01/01/21 Pantoprazole [Protonix Tab*] 40 mg PO DAILY #90 tab 01/03/21 Sucralfate [Carafate*] 1 gm PO ACHS #120 tab 01/03/21 Folic Acid 1 mg PO DAILY #90 tablet 08/01/21 Acetaminophen [Pain Relief] 1,000 mg PO Q6HP PRN 10/11/21 Atorvastatin Calcium [Lipitor] 40 mg PO BEDTIME 10/11/21 Clopidogrel Bisulfate [Plavix] 75 mg PO DAILY 10/11/21 Esomeprazole Magnesium 40 mg PO DAILY 10/11/21 Glimepiride [Amaryl] 4 mg PO DAILY 10/11/21 Insulin Regular, Human [Humulin R U-500 Kwikpen] 100 unit SQ TID 10/11/21 Metformin HCl 1,000 mg PO DAILY 10/11/21 - Past Medical/Surgical History Diabetic: Yes -: Hyperlipidemia -: Diabetes mellitus type 2 insulin-dependent -: HTN -: Hyperlipidemia -: CHF, diastolic -: Dementia -: Hypothyroidism -: GERD with hiatal hernia -: Thyroid surgery -: Right shoulder surgery Psychosocial/ Personal History: Lives at home with daughter - Family History Father -: Hypertension, Diabetes Mother -: Hypertension, Diabetes, Cancer Notes: stomach cancer - Social History Smoking Status: Never smoker Alcohol use: No CD- Drugs: No Caffeine use: Yes Review of Systems General: Weakness Eyes: Unremarkable ENT: Unremarkable Respiratory: Unremarkable Cardiovascular: Unremarkable Gastrointestinal: Unremarkable Genitourinary: Unremarkable Musculoskeletal: Unremarkable Neurological: Weakness Physical Examination - Physical Exam General: Alert HEENT: Atraumatic, Normocephalic Neck: Supple Respiratory: Normal air movement Cardiovascular: Regular rate/rhythm, Normal S1 S2 Gastrointestinal: Soft and benign Musculoskeletal: No swelling Neurological: Normal speech - Studies Laboratory Data (last 24 hrs) 02/15/22 11:38: PT 11.3, INR 1.03, APTT 23.3 L 02/15/22 11:38: WBC 4.7, Hgb 11.6 L, Hct 37.5, Plt Count 301 Assessment and Plan - Plan TIA: Patient does have significant comorbid condition predisposing her to possible stroke as she is diabetic and hypertensive and also has hyperlipidemia. Will obtain lipid panel to evaluate efficacy of statin therapy. Will work-up further with echocardiogram and put on telemetry. Will obtain carotid Doppler ultrasound to evaluate blood supply to the intracra nial cavity. Will have neurology evaluate patient. Hypertension: Will continue antihypertensive medication and monitor vital signs per unit protocol Diabetes type 2: Will continue sliding scale insulin for glucose control and carb restricted diet. Oral hypoglycemic agent to be continued. Hypothyroidism: Will continue levothyroxine therapy as prescribed outpatient. TSH is significantly within normal limit we will follow closely. Hyperlipidemia: We will continue statin therapy. Prophylaxis: Lovenox for DVT prophylaxis CODE STATUS: Full code. Disposition: for possible discharge in the next 24-48 after stroke work-up is complete. - Advance Directives Does patient have a Living Will: No Does patient have a Durable POA for Healthcare: No
[2022-02-15] MEDS ORDERED: ENOXAPARIN 40 MG/0.4 ML SQ ONE (17:24)
[2022-02-15] MEDS ORDERED: NA CHLORIDE 0.9% 1,000 ML ONE (17:24)
[2022-02-15] MEDS: SUCRALFATE 1 GM TABLET PO SCH (21:52)
[2022-02-15] MEDS: ATORVASTATIN 40 MG TAB PO SCH (21:52)
[2022-02-15] MEDS: ACETAMINOPHEN 500 MG TAB PO PRN (21:55)
[2022-02-16] MEDS: NA CHLORIDE 0.9% 1,000 ML IV SCH ×3 (02:10→21:06)
[2022-02-16 05:59] LABS: Absolute Lymphocytes (CBC) 0.8 K/uL (0.7-4.9); Hematocrit 28.9 % (36.0-45.0); Lymphocytes % 18.7 % (15.3-44.8); MPV 7.3 fL (7.6-11.3); RBC Red Blood Cell Count 3.66 M/uL (3.86-4.86)
--- NOTE | 2022-02-16 06:18 | EKG ---
Test Date: 2022-02-15 Test Time: 11:07:55 Planogrammer: JENNY MEASUREMENT RESULTS: Intervals: Rate: 71 NE: 128 QRSD: 76 QT: 398 QTc: 432 [place]: P: 68 NE: 128 QRS: 6 T: 18 INTERPRETIVE STATEMENTS: Normal sinus rhythm Normal ECG Compared to ECG 09/11/2021 18:08:29 No significant changes Electronically Signed On 02-16-22 06:16:18 CDT by Xavier Eugene
[2022-02-16 06:21] LABS: Albumin 2.5 g/dL (3.4-5.0); Bilirubin Total 0.4 mg/dL (0.2-1.0); Potassium 3.1 mmol/L (3.5-5.1); Protein, Total 6.4 g/dL (6.4-8.2)
[2022-02-16] MEDS: SUCRALFATE 1 GM TABLET PO SCH ×4 (07:18→21:06)
[2022-02-16] MEDS: LEVOTHYROXINE SOD 0.075 MG TAB PO SCH (07:18)
[2022-02-16] MEDS: LEVOTHYROXINE SOD 0.125 MG TAB PO SCH (07:18)
[2022-02-16] MEDS: INSULIN -REGULAR HUMAN 50 UNIT/0.5 ML ML SQ SCH ×4 (07:30→21:00)
[2022-02-16] MEDS ORDERED: POTASSIUM CL SA 10 MEQ TAB PO ONE (09:00)
[2022-02-16] MEDS ORDERED: LEVOTHYROXINE SOD 0.125 MG TAB PO SCH (09:00)
[2022-02-16] MEDS: FOLIC ACID 1 MG TABLET PO SCH (10:48)
[2022-02-16] MEDS: ASPIRIN EC 81 MG TAB PO SCH (10:48)
[2022-02-16] MEDS: CLOPIDOGREL 75 MG TABLET PO SCH (10:48)
[2022-02-16] MEDS: ENOXAPARIN 40 MG/0.4 ML SQ SCH (10:49)
[2022-02-16] MEDS: ISOSORBIDE MONO SR 30 MG TAB PO SCH (10:49)
[2022-02-16] MEDS: PANTOPRAZOLE 40MG TABLET PO SCH (10:49)
--- NOTE | 2022-02-16 11:00 | EKG ---
Test Date: 2022-02-15 Test Time: 11:07:31 Coverstitch Machine Operator: JENNY MEASUREMENT RESULTS: Intervals: Rate: 72 DE: 128 QRSD: 68 QT: 396 QTc: 433 [place]: P: 70 DE: 128 QRS: 6 T: 14 INTERPRETIVE STATEMENTS: Normal sinus rhythm Normal ECG Compared to ECG 09/11/2021 18:08:29 No significant changes Electronically Signed On 02-16-22 10:58:34 CDT by Xavier Eugene
[2022-02-16] MEDS ORDERED: LORazepam 2 MG/ML VIAL IV ONE (15:00)
--- NOTE | 2022-02-16 16:22 | RAD REPORT ---
EXAM DESCRIPTION: MRI - Brain Wo Cont - 02/16/2022 4:08 pm CLINICAL HISTORY: pt with suspected stroke due to lt sided weakness COMPARISON: Ct Stroke Brain Wo Cont dated 02/15/2022 TECHNIQUE: Sagittal T1-weighted images were obtained along with axial PD, heavily T2-weighted and T2 -FLAIR images. Axial DWI and ADC mapping sequences were also obtained along with coronal heavily T2-w eighted images. FINDINGS: No intracranial hemorrhage. No mass effect, edema or shift of midline structures. Diffusio n-weighted imaging shows a punctate 3 mm focus of restricted diffusion at the anterior margin of the right thalamus at the genu internal capsule. Although small, acute CVA in this location could result in an left extremity weakness. No other area of acute or subacute infarction identifiable. Patient grant s underlying mild to moderate atrophy with ventricles in proportion. Cerebral white matter chronic is chemic changes mild. No chronic ischemic change in the brainstem. Mild thalamus chronic ischemic sears ge. No extra-axial fluid collections. Lund-matter/white matter junction is preserved. Signal voids are s een as a normal finding in the major intracranial vessels. No sella or supra sella abnormality. No gl obe or orbital content acute finding. Mastoid air cells and paranasal sinuses are clear. IMPRESSION: Punctate acute to subacute nonhemorrhagic CVA at the anterior thalamus -genu internal ca psule junction. In this location, the CVA could result in left extremity weakness. Patient has mild to moderate atrophy with mild cerebral white matter and thalamus chronic ischemic ch hero.
--- NOTE | 2022-02-16 18:12 | P.PN ---
Subjective Date of Service: 02/16/22 Chief Complaint: TIA. Subjective: No new changes Physical Examination - Vital Signs Temperature: 98.3 F Blood Pressure: 136/75 Pulse: 82 Respirations: 16 Pulse Ox (%): 97 - Physical Exam General: Alert, Oriented x3 HEENT: Atraumatic, Normocephalic Neck: Supple Respiratory: Normal air movement Cardiovascular: Regular rate/rhythm, Normal S1 S2 Gastrointestinal: Soft and benign Musculoskeletal: No swelling Neurological: Normal speech, Abnormal strength (left sided) Assessment And Plan - Plan CVA: MRI confirms thalamic stroke. We will continue statin and aspirin therapy with clopidogrel. we will continue PT/OT/ST eval. Neurology to evaluate. Hypertension: Will continue antihypertensive medication and monitor vital signs per unit protocol Diabetes type 2: Will continue sliding scale insulin for glucose control and carb restricted diet. Oral hypoglycemic agent to be continued. Hypothyroidism: Will continue levothyroxine therapy as prescribed outpatient. TSH is significantly within normal limit we will follow closely. Hyperlipidemia: We will continue statin therapy. Prophylaxis: Lovenox for DVT prophylaxis CODE STATUS: Full code. Disposition: for possible skilled facility placement.
[2022-02-16] MEDS: ATORVASTATIN 40 MG TAB PO SCH (21:05)
[2022-02-17] MEDS: NA CHLORIDE 0.9% 1,000 ML IV SCH ×2 (06:00→13:11)
[2022-02-17] MEDS: LEVOTHYROXINE SOD 0.075 MG TAB PO SCH (07:20)
[2022-02-17] MEDS: LEVOTHYROXINE SOD 0.125 MG TAB PO SCH (07:20)
[2022-02-17] MEDS: INSULIN -REGULAR HUMAN 50 UNIT/0.5 ML ML SQ SCH ×4 (07:30→19:54)
[2022-02-17] MEDS: ISOSORBIDE MONO SR 30 MG TAB PO SCH (09:02)
[2022-02-17] MEDS: PANTOPRAZOLE 40MG TABLET PO SCH (09:02)
[2022-02-17] MEDS: ENOXAPARIN 40 MG/0.4 ML SQ SCH (09:02)
[2022-02-17] MEDS: SUCRALFATE 1 GM TABLET PO SCH ×4 (09:02→22:00)
[2022-02-17] MEDS: ASPIRIN EC 81 MG TAB PO SCH (09:02)
[2022-02-17] MEDS: FOLIC ACID 1 MG TABLET PO SCH (09:02)
[2022-02-17] MEDS: CLOPIDOGREL 75 MG TABLET PO SCH (09:02)
--- NOTE | 2022-02-17 16:47 | P.PN ---
Subjective Date of Service: 02/17/22 Chief Complaint: TIA. Subjective: No new changes Physical Examination - Vital Signs Temperature: 97.8 F Blood Pressure: 130/56 Pulse: 87 Respirations: 18 Pulse Ox (%): 100 - Physical Exam General: Alert, Oriented x3 HEENT: Atraumatic, Normocephalic Neck: Supple Respiratory: Normal air movement Cardiovascular: Regular rate/rhythm, Normal S1 S2 Gastrointestinal: Soft and benign Musculoskeletal: No swelling Neurological: Normal speech Assessment And Plan - Plan CVA: MRI confirms thalamic stroke. We will continue statin and aspirin therapy with clopidogrel. we will continue PT/OT/ST eval. Neurology to evaluate. Hypertension: Will continue antihypertensive medication and monitor vital signs per unit protocol Diabetes type 2: Will continue sliding scale insulin for glucose control and carb restricted diet. Oral hypoglycemic agent to be continued. Hypothyroidism: Will continue levothyroxine therapy as prescribed outpatient. TSH is significantly within normal limit we will follow closely. Hyperlipidemia: We will continue statin therapy. Prophylaxis: Lovenox for DVT prophylaxis CODE STATUS: Full code. Disposition: for possible skilled facility placement.
[2022-02-17 21:26] LABS: Potassium 3.4 mmol/L (3.5-5.1)
[2022-02-17] MEDS ORDERED: POTASSIUM 25 MEQ EFFERV TAB PO ONE (21:46)
[2022-02-17] MEDS: ATORVASTATIN 40 MG TAB PO SCH (22:00)
[2022-02-18] MEDS: NA CHLORIDE 0.9% 1,000 ML IV SCH ×3 (03:00→22:13)
[2022-02-18 03:48] VITALS: O2SAT 98
[2022-02-18] MEDS: LEVOTHYROXINE SOD 0.125 MG TAB PO SCH (06:29)
[2022-02-18] MEDS: LEVOTHYROXINE SOD 0.075 MG TAB PO SCH (06:29)
[2022-02-18 06:56] LABS: Potassium 3.6 mmol/L (3.5-5.1)
[2022-02-18] MEDS: INSULIN -REGULAR HUMAN 50 UNIT/0.5 ML ML SQ SCH ×4 (07:30→21:00)
[2022-02-18] MEDS: PANTOPRAZOLE 40MG TABLET PO SCH (09:00)
[2022-02-18] MEDS ORDERED: POTASSIUM 25 MEQ EFFERV TAB PO ONE (09:00)
[2022-02-18] MEDS: ISOSORBIDE MONO SR 30 MG TAB PO SCH (09:29)
[2022-02-18] MEDS: FOLIC ACID 1 MG TABLET PO SCH (09:29)
[2022-02-18] MEDS: CLOPIDOGREL 75 MG TABLET PO SCH (09:29)
[2022-02-18] MEDS: ENOXAPARIN 40 MG/0.4 ML SQ SCH (09:29)
[2022-02-18] MEDS: SUCRALFATE 1 GM TABLET PO SCH ×4 (09:29→22:12)
[2022-02-18] MEDS: ASPIRIN EC 81 MG TAB PO SCH (09:29)
--- NOTE | 2022-02-18 14:08 | P.PN ---
Subjective Date of Service: 02/18/22 Chief Complaint: TIA. Subjective: No new changes, Improving Physical Examination - Vital Signs Temperature: 97.1 F Blood Pressure: 169/72 Pulse: 83 Respirations: 18 Pulse Ox (%): 98 - Physical Exam General: Alert, Oriented x3 HEENT: Atraumatic, Normocephalic Neck: Supple Respiratory: Normal air movement Cardiovascular: Regular rate/rhythm, Normal S1 S2 Gastrointestinal: Soft and benign Musculoskeletal: No swelling Neurological: Normal speech Assessment And Plan - Plan CVA: MRI confirms thalamic stroke. We will continue statin and aspirin therapy with clopidogrel. we will continue PT/OT/ST eval. Neurology to evaluate. SNF placement pending. Hypertension: Will continue antihypertensive medication and monitor vital signs per unit protocol Diabetes type 2: Will continue sliding scale insulin for glucose control and carb restricted diet. Oral hypoglycemic agent to be continued. Hypothyroidism: Will continue levothyroxine therapy as prescribed outpatient. TSH is significantly within normal limit we will follow closely. Hyperlipidemia: We will continue statin therapy. Prophylaxis: Lovenox for DVT prophylaxis CODE STATUS: Full code. Disposition: for possible skilled facility placement.
[2022-02-18] MEDS: ATORVASTATIN 40 MG TAB PO SCH (22:12)
[2022-02-19] MEDS: ACETAMINOPHEN 500 MG TAB PO PRN (01:00)
[2022-02-19 04:23] LABS: Potassium 3.4 mmol/L (3.5-5.1)
[2022-02-19] MEDS ORDERED: POTASSIUM 25 MEQ EFFERV TAB PO ONE (05:04)
[2022-02-19] MEDS: LEVOTHYROXINE SOD 0.075 MG TAB PO SCH (06:47)
[2022-02-19] MEDS: LEVOTHYROXINE SOD 0.125 MG TAB PO SCH (06:47)
[2022-02-19] MEDS: NA CHLORIDE 0.9% 1,000 ML IV SCH ×3 (06:47→20:24)
[2022-02-19] MEDS: INSULIN -REGULAR HUMAN 50 UNIT/0.5 ML ML SQ SCH ×4 (07:30→20:24)
[2022-02-19] MEDS: ASPIRIN EC 81 MG TAB PO SCH (08:23)
[2022-02-19] MEDS: ISOSORBIDE MONO SR 30 MG TAB PO SCH (08:23)
[2022-02-19] MEDS: ENOXAPARIN 40 MG/0.4 ML SQ SCH (08:23)
[2022-02-19] MEDS: FOLIC ACID 1 MG TABLET PO SCH (08:23)
[2022-02-19] MEDS: PANTOPRAZOLE 40MG TABLET PO SCH (08:23)
[2022-02-19] MEDS: CLOPIDOGREL 75 MG TABLET PO SCH (08:23)
[2022-02-19] MEDS: SUCRALFATE 1 GM TABLET PO SCH ×4 (08:23→20:23)
[2022-02-19] MEDS: ATORVASTATIN 40 MG TAB PO SCH (20:24)
[2022-02-20] MEDS: LEVOTHYROXINE SOD 0.075 MG TAB PO SCH (05:31)
[2022-02-20] MEDS: NA CHLORIDE 0.9% 1,000 ML IV SCH (05:32)
[2022-02-20] MEDS: LEVOTHYROXINE SOD 0.125 MG TAB PO SCH (05:32)
[2022-02-20 06:09] LABS: Potassium 3.5 mmol/L (3.5-5.1)
[2022-02-20] MEDS: INSULIN -REGULAR HUMAN 50 UNIT/0.5 ML ML SQ SCH ×2 (07:30→12:19)
[2022-02-20] MEDS: PANTOPRAZOLE 40MG TABLET PO SCH (08:46)
[2022-02-20] MEDS: CLOPIDOGREL 75 MG TABLET PO SCH (08:46)
[2022-02-20] MEDS: SUCRALFATE 1 GM TABLET PO SCH ×2 (08:46→12:19)
[2022-02-20] MEDS: ASPIRIN EC 81 MG TAB PO SCH (08:46)
[2022-02-20] MEDS: FOLIC ACID 1 MG TABLET PO SCH (08:47)
[2022-02-20] MEDS: ISOSORBIDE MONO SR 30 MG TAB PO SCH (08:47)
[2022-02-20] MEDS: ENOXAPARIN 40 MG/0.4 ML SQ SCH (08:47)
[2022-02-20] MEDS ORDERED: POTASSIUM 25 MEQ EFFERV TAB PO ONE (09:00)
[2022-02-20 10:18] LABS: Magnesium 1.6 mg/dL (1.8-2.4)
[2022-02-20 12:14] VITALS: BP 122/79; TEMP 98
[2022-02-20] MEDS ORDERED: MAGNESIUM SULFATE 1 gm IVPB 1 GM/100 ML BAG IV ONE (12:50)
== END 2022-02-20 14:30 | DRG 65 ==
LOC: ER 10:49 → ERHOLD 13:19 → 2ND 17:59 → OBSVTOIN 02-17 09:50
PROVIDERS: ADMIT Internal Medicine Nephrology; ATTEND Internal Medicine Nephrology
DX: I63.9 Cerebral infarction, unspecified (principal); G81.94 Hemiplegia, unspecified affecting left nondominant side; I50.32 Chronic diastolic (congestive) heart failure; R29.810 Facial weakness; R29.709 NIHSS score 9; E11.9 Type 2 diabetes mellitus without complications; E03.9 Hypothyroidism, unspecified; E78.5 Hyperlipidemia, unspecified; K21.9 Gastro-esophageal reflux disease without esophagitis; I11.0 Hypertensive heart disease with heart failure; Z20.822 Contact with and (suspected) exposure to COVID-19
CPT/HCPCS: 36415; 51702; 70450; 70551; 71045; 80048; 80053; 80061; 81003; 81015; 82947; 83735; 84100; 84132; 84443; 84484; 85025; 85610; 85730; 93005; 97112; 97116; 97161; 97166; 97530; 99285; G0378; J1650; J1815; J3475; J7030; U0003